=== PATIENT | male | born 1955 | race African-American/Black ===

== ENCOUNTER 2016-09-02 08:16 | Emergency (ER) | payer MEDICARE, MEDICAID ==
[~2016-09-02] VITALS: Ht 167.6 cm; Wt 72.6 kg
[~2016-09-02 08:16] MED LIST: ASPIRIN EC81 MG ORAL; ATORVASTATIN CA10 MG ORAL; BRIMONIDINE TART5 ML BOTH EYES; COSOPT1 DRO2 BOTH EYES; COUMADIN4 MG ORAL; CRESTOR10 M2 ORAL; CRESTOR20 MG ORAL; CRESTOR40 MG ORAL; ELIQUIS; ELIQUIS5 MG PO; FISH OIL CAP1000 MG ORAL; GINSENG100 MG PO; HYDROCODON-ACE1 EA13 ORAL; JANUVIA25 MG ORAL; MACROBID100 MG ORAL; NITROSTAT0.4 M1 SL; TRAVATAN 0.0042.5 ML BOTH EYES; XALATAN2.5 ML BOTH EYES; eloquist PO
--- NOTE | 2016-09-02 08:45 | Emergency Room Report ---
History of Present Illness General Chief Complaint: Chest Pain Source: Patient Present Illness HPI Patient presents with complaints of midsternal chest pain He reports that he was driving a family member when he started feeling the pain Denies any vomiting or diarrhea denies any fevers or chills Denies any shortness of breath patient has complex past medical history including, DVT, previous cardiac surgery And is on elaquis Denies any fall or trauma Pain is 4/10 midsternal sharp Allergies: Coded Allergies: HYDROMORPHONE (Verified Adverse Reaction, Severe, "overwhelms him. can tolerate morphine", 03/01/14) HYDROCODONE (Verified Adverse Reaction, Intermediate, N/V, 10/08/15) Patient History Past Medical History: see triage record Pertinent Family History: none Reviewed Nursing Documentation: PMH: Agreed, PSxH: Agreed Nursing Documentation-PMH Hx Cardiac Problems: No Hx Hypertension: No Hx Pacemaker: No Hx Asthma: No Hx Diabetes: No Hx Cancer: No Hx Gastrointestinal Problems: No Hx Dialysis: No History Of Psychiatric Problem: No Hx Neurological Problems: No Hx Cerebrovascular Accident: No Hx Seizures: No Review of Systems All Other Systems: negative except mentioned in HPI Physical Exam Vital Signs Date Time Temp Pulse Resp B/P Pulse Ox O2 Delivery O2 Flow Rate FiO2 09/02/16 08:28 98.1 78 16 118/70 98 Room Air Sp02 EP Interpretation: reviewed, normal General Appearance: well appearing, no apparent distress Head: normocephalic, atraumatic Eyes: bilateral eye EOMI, bilateral eye PERRL ENT: hearing grossly normal, normal pharynx, TMs + canals normal, uvula midline Neck: full range of motion, supple, no meningismus, no bony tend Respiratory: lungs clear, normal breath sounds, no rhonchi, no respiratory distress, no retraction, no accessory muscle use Cardiovascular #1: normal peripheral pulses, regular rate, rhythm, no edema, no gallop, no JVD, no murmur Gastrointestinal: normal bowel sounds, non tender, soft, no mass, no organomegaly, non-distended, no guarding, no hernia, no pulsatile mass, no rebound Genitourinary: no CVA tenderness Musculoskeletal: normal inspection Neurologic: oriented x3, responsive, computer science professor III-XII nml as tested, motor strength/ tone normal, sensory intact Psychiatric: mood/affect normal Skin: normal color, no rash, warm/dry, palpation normal Lymphatic: normal inspection, no adenopathy Medical Decision Making Diagnostic Impression: Primary Impression: Chest pain ER Course Patient is a fairly complex patient with multiple differential to consideration including but not limited to cardiac cardiopulmonary and vascular emergencies Patient's blood work is at baseline levels Patient continues to rest comfortable he without any acute distress Patient has had multiple imaging and therefore chest x-ray was not obtained today EKG is appropriate and patient stable for close outpatient followup Labs Test 09/02/16 09:00 White Blood Count 5.9 K/UL (4.8-10.8) Red Blood Count 4.53 M/UL (4.70-6.10) Hemoglobin 12.0 G/DL (14.2-18.0) Hematocrit 37.7 % (42.0-52.0) Mean Corpuscular Volume 83 FL (80-99) Mean Corpuscular Hemoglobin 26.4 PG (27.0-31.0) Mean Corpuscular Hemoglobin Concent 31.7 G/DL (32.0-36.0) Red Cell Distribution Width 16.4 % (11.6-14.8) Platelet Count 196 K/UL (150-450) Mean Platelet Volume 9.5 FL (6.5-10.1) Neutrophils (%) (Auto) 63.7 % (45.0-75.0) Lymphocytes (%) (Auto) 21.3 % (20.0-45.0) Monocytes (%) (Auto) 10.1 % (1.0-10.0) Eosinophils (%) (Auto) 3.9 % (0.0-3.0) Basophils (%) (Auto) 1.0 % (0.0-2.0) Sodium Level 136 mEQ/L (135-145) Potassium Level 3.9 mEQ/L (3.4-4.9) Chloride Level 97 mEQ/L (98-107) Carbon Dioxide Level 24 mEQ/L (20-30) Anion Gap 15 (5-15) Blood Urea Nitrogen 17 mg/dL (7-23) Creatinine 1.3 mg/dL (0.7-1.2) Estimat Glomerular Filtration Rate > 60 mL/min (>60) Glucose Level 156 mg/dL (74-106) Calcium Level 9.4 mg/dL (8.6-10.2) Total Bilirubin 0.5 mg/dL (0.0-1.2) Aspartate Amino Transf (AST/SGOT) 14 U/L (5-40) Alanine Aminotransferase (ALT/SGPT) 11 U/L (3-41) Alkaline Phosphatase 54 U/L (40-129) Total Creatine Kinase 78 U/L (38-174) Creatine Kinase MB 1.8 ng/mL (< 6.7) Creatine Kinase MB Relative Index 2.3 Troponin I < 0.30 ng/mL (<=0.30) Total Protein 7.1 g/dL (6.6-8.7) Albumin 4.1 g/dL (3.5-5.2) Globulin 3.0 g/dL Albumin/Globulin Ratio 1.3 (1.0-2.7) EKG Diagnostic Results Rate: normal Rhythm: NSR ST Segments: no acute changes Rhythm Strip Diag. Results EP Interpretation: yes Rate: 88 Rhythm: NSR, no PVC's, no ectopy Chest X-Ray Diagnostic Results EP Interpretation: Yes Last Vital Signs Date Time Temp Pulse Resp B/P Pulse Ox O2 Delivery O2 Flow Rate FiO2 09/02/16 08:28 98.1 78 16 118/70 98 Room Air Status: improved Disposition: HOME, SELF-CARE Condition: Stable Additional Instructions: Patient is provided with the discharge instructions notified to follow up with primary doctor in the next 2-3 days otherwise return to the er with any worsening symptoms. Please note that this report is being documented using DRAGON technology. This can lead to erroneous entry secondary to incorrect interpretation by the dictating instrument. NELSON LOZANO D.O. Sep 02, 2016 08:45
[2016-09-02 09:14] LABS: EOSINOPHILS % (AUTO) 3.9 % (0.0-3.0); LYMPHOCYTES % (AUTO) 21.3 % (20.0-45.0); MEAN CORPUSCULAR HEMOGLOBIN 26.4 PG (27.0-31.0); MEAN CORPUSCULAR HGB CONC 31.7 G/DL (32.0-36.0); MEAN CORPUSCULAR VOLUME 83 FL (80-99); MEAN PLATELET VOLUME 9.5 FL (6.5-10.1); MONOCYTES % (AUTO) 10.1 % (1.0-10.0); NEUTROPHILS % (AUTO) 63.7 % (45.0-75.0); PLATELET COUNT 196 K/UL (150-450); RED BLOOD COUNT 4.53 M/UL (4.70-6.10); RED CELL DISTRIBUTION WIDTH 16.4 % (11.6-14.8); WHITE BLOOD COUNT 5.9 K/UL (4.8-10.8)
[2016-09-02 09:26] LABS: ALANINE AMINOTRANSFERASE 11 U/L (3-41); ALBUMIN/GLOBULIN RATIO 1.3 (1.0-2.7); ANION GAP 15 (5-15); ASPARTATE AMINO TRANSFERASE 14 U/L (5-40); CALCIUM 9.4 mg/dL (8.6-10.2); CARBON DIOXIDE 24 mEQ/L (20-30); CHLORIDE 97 mEQ/L (98-107); CREATININE 1.3 mg/dL (0.7-1.2); GLOMERULAR FILTRATION RATE > 60 mL/min (>60); HEMOLYSIS 2; POTASSIUM 3.9 mEQ/L (3.4-4.9); SODIUM 136 mEQ/L (135-145); TOTAL PROTEIN 7.1 g/dL (6.6-8.7)
[2016-09-02 09:27] LABS: TROPONIN I < 0.30 ng/mL (<=0.30)
[2016-09-02 09:36] LABS: CKMB 1.8 ng/mL (< 6.7)
[2016-09-02 10:03] VITALS: BP 110/63
[2016-09-02 10:48] VITALS: BP 106/74
--- NOTE | 2016-09-05 11:35 | Cardiology Report ---
APPROVED REPORT EKG Measurement Heart [id number] Normal sinus rhythm Possible Left atrial enlargement Borderline ECG
== END 2016-09-02 10:42 | disposition home or self-care (01) ==
LOC: EMR 08:59
DX: R07.9 Chest pain, unspecified (principal); Z86.718 Personal history of other venous thrombosis and embolism; Z88.8 Allergy status to other drugs, medicaments and biological substances; Z79.01 Long term (current) use of anticoagulants
CPT/HCPCS: 36415; 80053; 82550; 82553; 84484; 85025; 93005; 99283

== ENCOUNTER 2017-06-29 17:29 | Emergency (ER) | payer MEDICARE, MEDICAID ==
[~2017-06-29] VITALS: Ht 172.7 cm; Wt 88.5 kg
[2017-06-29 17:48] VITALS: BP 132/91
[2017-06-29 18:50] VITALS: BP 132/91
--- NOTE | 2017-06-29 21:15 | Emergency Room Report ---
History of Present Illness General Chief Complaint: Multiple Trauma/Fall Source: Patient Present Illness [facility] The patient is a 62-year-old male presenting for pain after falling today. He states that he tripped and struck his right shoulder and chest against the floor. He denies hitting his head or loss of consciousness. He has history of pectus excavatum. He also has a history of cardiac dysrhythmia but is unsure of the name of the diagnosis. He states that he is on eliquis. Pain is an 8/ 10 dull ache primarily to the chest and radiates to the right shoulder. Worse with touch. He denies other symptoms including shortness of breath, cough, dizziness, headache, blurred vision Allergies: Coded Allergies: HYDROMORPHONE (Verified Adverse Reaction, Severe, "overwhelms him. can tolerate morphine", 03/01/14) HYDROCODONE (Verified Adverse Reaction, Intermediate, N/V, 10/08/15) Patient History Past Medical History: see triage record Pertinent Family History: none Reviewed Nursing Documentation: PMH: Agreed, PSxH: Agreed Nursing Documentation-PMH Hx Cardiac Problems: No Hx Hypertension: No Hx Pacemaker: No Hx Asthma: No Hx Diabetes: No Hx Cancer: No Hx Gastrointestinal Problems: No Hx Dialysis: No Hx Neurological Problems: No Hx Cerebrovascular Accident: No Hx Seizures: No Review of Systems All Other Systems: negative except mentioned in HPI Physical Exam Vital Signs Date Time Temp Pulse Resp B/P (MAP) Pulse Ox O2 Delivery O2 Flow Rate FiO2 06/29/17 17:38 98.4 85 20 132/91 98 Room Air Sp02 EP Interpretation: reviewed, normal General Appearance: no apparent distress, alert, GCS 15, non-toxic Head: normocephalic, atraumatic Eyes: bilateral eye normal inspection, bilateral eye PERRL ENT: hearing grossly normal, normal pharynx, no angioedema, normal voice Respiratory: lungs clear, normal breath sounds, speaking full sentences Cardiovascular #1: regular rate, rhythm, no edema Musculoskeletal: normal range of motion - R shoulder, other - pectus excavatum , tender - Mid chest over sternum Neurologic: alert, oriented x3, responsive, motor strength/tone normal, sensory intact, speech normal Psychiatric: judgement/insight normal, memory normal, mood/affect normal, no suicidal/homicidal ideation Skin: normal color, no rash, warm/dry, well hydrated Medical Decision Making PA Attestation Dr. Su is my supervising physician. Patient management was discussed with my supervising physician Diagnostic Impression: Primary Impression: AMA ER Course The patient is a 62-year-old male presenting for pain after falling today. Ddx considered include but not limited to hemothorax, ACS, tamponade, sprain/ strain, fracture, contusion, among others PE: Vitals WNL. NAD Chest: pectus excavatum with surgical scar. TTP over sternum RRR Lungs CTA bilat EKG unremarkable. No arrhythmia. No ST changes. CT chest ordered but patient refused. He states that he has had bad experiences with IV contrast. I informed him this was ordered without contrast. He has become irritated and refuses the CT. He states that he will wait for a family member to call him. Upon reevaluation, I told the patient we need imaging in order to further evaluate him. He again became upset and states that he will leave. The patient will have to leave AMA. EKG Diagnostic Results EP Interpretation: NSR. No acute findings Rate: normal - 78 Rhythm: NSR ST Segments: no acute changes ASA given to the pt in ED: No PA Scribe Text EKG was reviewed and read with my supervising physician. No acute ST segment changes are seen. Normal rate and rhythm. No acute changes. Last Vital Signs Date Time Temp Pulse Resp B/P (MAP) Pulse Ox O2 Delivery O2 Flow Rate FiO2 06/29/17 18:50 98.4 20 132/91 98 Room Air 06/29/17 17:38 85 Status: improved Disposition: AGAINST MEDICAL ADVICE Condition: Stable Referrals: NOT CHOSEN IPA/,REFERRING (PCP) SHEEBA AMBROSE Jun 29, 2017 21:15
--- NOTE | 2017-07-05 15:10 | Cardiology Report ---
APPROVED REPORT EKG Measurement Heart [id number] Normal sinus rhythm Normal ECG
== END 2017-06-29 18:50 | disposition left against medical advice (07) ==
LOC: EMR 18:18
DX: M25.511 Pain in right shoulder (principal); W01.0XXA Fall on same level from slipping, tripping and stumbling without subsequent striking against object, initial encounter; Y92.9 Unspecified place or not applicable
CPT/HCPCS: 93005; 99283

== ENCOUNTER 2018-05-01 21:31 | Inpatient (IN) | payer MEDICARE, MEDICAID ==
[~2018-05-01] VITALS: Ht 172.7 cm; Wt 89.8 kg
[2018-05-02] VITALS: BP 130/77
[2018-05-02] MEDS ORDERED: PROSCAR5 MG ORAL (00:46)
[2018-05-02] MEDS ORDERED: BRIMONIDINE TART5 ML BOTH EYES (00:46)
[2018-05-02] MEDS ORDERED: LIPITOR80 MG ORAL (00:46)
[2018-05-02] MEDS ORDERED: TAMSULOSIN HCL0.4 MG ORAL (00:46)
[2018-05-02] MEDS ORDERED: TRAVATAN Z5 ML OP (00:46)
[2018-05-02] MEDS ORDERED: COSOPT PF EYE1 EAC1 OP (00:46)
[2018-05-02] MEDS ORDERED: METFORMIN HCL500 M1 ORAL (00:46)
[2018-05-02] MEDS ORDERED: ELIQUIS5 MG PO (00:46)
[2018-05-02] MEDS ORDERED: Nitroglycerin Subl 0.4mg tab SL PRN (01:00)
[2018-05-02] MEDS: NovoLOG Insulin Flexpen SUBQ SCH ×4 (06:09→21:00)
[2018-05-02 08:00] VITALS: BP 122/70
[2018-05-02 08:44] LABS: BASOPHILS % (AUTO) 1.1 % (0.0-2.0); EOSINOPHILS % (AUTO) 3.3 % (0.0-3.0); HEMATOCRIT 41.6 % (42.0-52.0); HEMOGLOBIN 13.5 G/DL (14.2-18.0); LYMPHOCYTES % (AUTO) 22.9 % (20.0-45.0); MEAN CORPUSCULAR VOLUME 84 FL (80-99); MONOCYTES % (AUTO) 11.3 % (1.0-10.0); NEUTROPHILS % (AUTO) 61.4 % (45.0-75.0); PLATELET COUNT 151 K/UL (150-450); RED BLOOD COUNT 4.96 M/UL (4.70-6.10); RED CELL DISTRIBUTION WIDTH 16.1 % (11.6-14.8); WHITE BLOOD COUNT 6.6 K/UL (4.8-10.8)
[2018-05-02] MEDS: Aspirin Baby 81mg ORAL SCH (08:49)
[2018-05-02] MEDS: Cosopt Opth Soln 10 mL Btl BOTH EYES SCH ×2 (08:49→17:40)
[2018-05-02] MEDS: Brimonidine 0.2% Opth Sol BOTH EYES SCH ×2 (08:50→17:40)
[2018-05-02 09:07] LABS: ALANINE AMINOTRANSFERASE 15 U/L (12-78); ALBUMIN 3.3 G/DL (3.4-5.0); ALBUMIN/GLOBULIN RATIO 0.8 (1.0-2.7); ALKALINE PHOSPHATASE 59 U/L (46-116); ANION GAP 7 mmol/L (5-15); ASPARTATE AMINO TRANSFERASE 13 U/L (15-37); BILIRUBIN,TOTAL 0.4 MG/DL (0.2-1.0); BLOOD UREA NITROGEN 15 mg/dL (7-18); CARBON DIOXIDE 26 MMOL/L (21-32); CHLORIDE 105 MMOL/L (98-107); CHOLESTEROL 147 MG/DL (< 200); CREATININE 1.1 MG/DL (0.55-1.30); HDL CHOLESTEROL 31 MG/DL (40-60); PHOSPHORUS 3.4 MG/DL (2.5-4.9); POTASSIUM 3.7 MMOL/L (3.5-5.1); SODIUM 138 MMOL/L (136-145); TRIGLYCERIDES 165 MG/DL (30-150)
[2018-05-02] MEDS ORDERED: Eliquis 2.5mg tablet ORAL SCH (10:00)
[2018-05-02] MEDS ORDERED: metFORMIN 500mg tab ORAL SCH (10:00)
[2018-05-02] MEDS: Morphine Sulfate 2mg/ml Inj IVP PRN ×3 (11:22→23:58)
--- NOTE | 2018-05-02 11:37 | Consultation ---
History of Present Illness General Date patient seen: May 02, 2018 Present Illness HPI 63 year old male with hx of CAD, ventricular mural thrombosis, with ICD, was taken to [facility] with cc of chest pain. An acute MN was ruled out and pt was transferred to [facility] last night. Pt used to come to [facility] more frequently in the past. He has not been admitted for the last two years here. He got an ICD at [facility]. He is c/o chest pain and firing from the pace maker. Allergies: Coded Allergies: HYDROMORPHONE (Verified Adverse Reaction, Severe, "overwhelms him. can tolerate morphine", 03/01/14) HYDROCODONE (Verified Adverse Reaction, Intermediate, N/V, 10/08/15) Medication History Scheduled Apixaban (Eliquis), 5 MG PO BID, (Reported) Apixaban (Eliquis), 5 MG PO BID, (Reported) Atorvastatin (Lipitor), 10 MG ORAL DAILY, (Reported) Atorvastatin Calcium* (Lipitor*), 10 MG ORAL BEDTIME, (Reported) Brimonidine Tartrate* (Alphagan*), 1 DROP BOTH EYES TID, (Reported) Brimonidine Tartrate* (Alphagan*), 1 DROP BOTH EYES BID, (Reported) Dorzolamide HCl/Timolol Maleat (Dorzolamide-Timolol Eye Drops), 1 DROP BOTH EYES TWICE A DAY, (Reported) Dorzolamide/Timolol/Pf (Cosopt Pf Eye Drops), 1 EACH OP BID, (Reported) Finasteride* (Proscar*), 5 MG ORAL DAILY, (Reported) Hydrocodone Bit/Acetaminophen 10-325* (Hydrocodon-Acetaminophn 10-325*), 1 TAB ORAL Q6H, (Reported) Metformin Hcl* (Metformin Hcl*), 500 MG ORAL TWICE A DAY, (Reported) Tamsulosin Hcl (Tamsulosin Hcl*), 0.4 MG ORAL BEDTIME, (Reported) Travoprost (Travatan Z), 1 DROP OP BEDTIME, (Reported) Travoprost (Benzalkonium) (Travatan 0.004% Eye Drop), 1 DROP BOTH EYES BEDTIME, (Reported) Patient History Healthcare decision maker Resuscitation status Full Code Advanced Directive on File Past Medical/Surgical History Past Medical/Surgical History: (1) DVT (deep venous thrombosis) (2) Chest wall pain (3) Lumbar spondylosis (4) HTN (hypertension) (5) Hx pulmonary embolism (6) Diabetes mellitus (7) Asthma Review of Systems All Other Systems: negative except mentioned in HPI Physical Exam General Appearance: WD/WN, no apparent distress Lines, tubes and drains: peripheral HEENT: normocephalic, atraumatic Neck: non-tender, normal alignment Respiratory/Chest: chest wall non-tender Breasts: no masses Cardiovascular/Chest: normal peripheral pulses Abdomen: normal bowel sounds, non tender Genitourinary/Rectal: normal genital exam Extremities: normal range of motion Neurologic: recorder helper seismograph II-XII grossly normal Last 24 Hour Vital Signs Date Time Temp Pulse Resp B/P (MAP) Pulse Ox O2 Delivery O2 Flow Rate FiO2 05/02/18 08:00 97.7 66 16 122/70 (87) 95 05/02/18 04:00 60 05/02/18 02:18 Room Air 05/02/18 00:00 97.9 63 20 130/77 (94) 97 05/02/18 00:00 66 Intake and Output 05/01/18 05/02/18 19:00 07:00 # Voids 3 # Bowel Movements 1 Laboratory Tests Test 05/02/18 07:25 White Blood Count 6.6 K/UL (4.8-10.8) Red Blood Count 4.96 M/UL (4.70-6.10) Hemoglobin 13.5 G/DL (14.2-18.0) L Hematocrit 41.6 % (42.0-52.0) L Mean Corpuscular Volume 84 FL (80-99) Mean Corpuscular Hemoglobin 27.2 PG (27.0-31.0) Mean Corpuscular Hemoglobin Concent 32.4 G/DL (32.0-36.0) Red Cell Distribution Width 16.1 % (11.6-14.8) H Platelet Count 151 K/UL (150-450) Mean Platelet Volume 11.1 FL (6.5-10.1) H Neutrophils (%) (Auto) 61.4 % (45.0-75.0) Lymphocytes (%) (Auto) 22.9 % (20.0-45.0) Monocytes (%) (Auto) 11.3 % (1.0-10.0) H Eosinophils (%) (Auto) 3.3 % (0.0-3.0) H Basophils (%) (Auto) 1.1 % (0.0-2.0) Sodium Level 138 MMOL/L (136-145) Potassium Level 3.7 MMOL/L (3.5-5.1) Chloride Level 105 MMOL/L (98-107) Carbon Dioxide Level 26 MMOL/L (21-32) Anion Gap 7 mmol/L (5-15) Blood Urea Nitrogen 15 mg/dL (7-18) Creatinine 1.1 MG/DL (0.55-1.30) Estimat Glomerular Filtration Rate > 60 mL/min (>60) Glucose Level 146 MG/DL (74-106) H Calcium Level 9.0 MG/DL (8.5-10.1) Phosphorus Level 3.4 MG/DL (2.5-4.9) Magnesium Level 1.9 MG/DL (1.8-2.4) Total Bilirubin 0.4 MG/DL (0.2-1.0) Aspartate Amino Transf (AST/SGOT) 13 U/L (15-37) L Alanine Aminotransferase (ALT/SGPT) 15 U/L (12-78) Alkaline Phosphatase 59 U/L (46-116) Troponin I 0.000 ng/mL (0.000-0.056) Total Protein 7.3 G/DL (6.4-8.2) Albumin 3.3 G/DL (3.4-5.0) L Globulin 4.0 g/dL Albumin/Globulin Ratio 0.8 (1.0-2.7) L Triglycerides Level 165 MG/DL (30-150) H Cholesterol Level 147 MG/DL (< 200) LDL Cholesterol 87 mg/dL (<100) HDL Cholesterol 31 MG/DL (40-60) L Cholesterol/HDL Ratio 4.7 (3.3-4.4) H Height (Feet): 5 Height (Inches): 8.00 Weight (Pounds): 198 Medications Current Medications Medications (Trade) Dose Ordered Sig/Kristan Route PRN Reason Start Time Stop Time Status Last Admin Dose Admin Acetaminophen (Tylenol) 650 mg Q4H PRN ORAL Mild Pain/Temp > 100.5 05/02/18 01:00 06/01/18 00:59 Apixaban (Eliquis) 5 mg BID ORAL 05/02/18 18:00 06/01/18 17:59 Aspirin (ASA) 81 mg DAILY ORAL 05/02/18 09:00 06/01/18 08:59 05/02/18 08:49 Atorvastatin Calcium (Lipitor) 10 mg BEDTIME ORAL 05/02/18 21:00 06/01/18 20:59 Brimonidine Tartrate (Alphagan) 1 drop BID BOTH EYES 05/02/18 09:00 06/01/18 08:59 05/02/18 08:50 Dextrose (Dextrose 50%) 25 ml Q30M PRN IV Hypoglycemia 05/02/18 01:00 06/01/18 00:59 Dextrose (Dextrose 50%) 50 ml Q30M PRN IV Hypoglycemia 05/02/18 01:00 06/01/18 00:59 Dorzolamide/ Timolol (Cosopt) 1 drop TWICE A DAY BOTH EYES 05/02/18 09:00 06/01/18 08:59 05/02/18 08:49 Finasteride (Proscar) 5 mg DAILY ORAL 05/02/18 09:00 06/01/18 08:59 05/02/18 08:49 Insulin Aspart (NovoLOG) BEFORE MEALS AND HS SUBQ 05/02/18 06:30 06/01/18 06:29 Latanoprost (Xalatan) 1 drop QHS BOTH EYES 05/02/18 21:00 06/01/18 20:59 Metformin HCl (Glucophage) 500 mg TWICE A DAY ORAL 05/02/18 18:00 06/01/18 17:59 Morphine Sulfate (Morphine Sulfate) 2 mg Q6H PRN IVP Severe Breakthru Pain (>7) 05/02/18 01:00 05/09/18 00:59 05/02/18 11:22 Nitroglycerin (Ntg) 0.4 mg Q5M PRN SL Prn Chest Pain 05/02/18 01:00 06/01/18 00:59 Ondansetron HCl (Zofran) 4 mg Q6H PRN IVP Nausea & Vomiting 05/02/18 01:00 06/01/18 00:59 Tamsulosin HCl (Flomax) 0.4 mg BEDTIME ORAL 05/02/18 21:00 06/01/18 20:59 Assessment/Plan Problem List: (1) Acute coronary syndrome ICD Codes: I20.0 - Acute coronary syndrome SNOMED: 405148988 (2) Abnormal ICD sensing ICD Codes: T82.190A - Other mechanical complication of cardiac electrode, initial encounter SNOMED: 631345593 (3) Costochondritis ICD Codes: M94.0 - Chondrocostal junction syndrome [Tietze] SNOMED: 46214366 (4) COPD (chronic obstructive pulmonary disease) ICD Codes: J44.9 - COPD (chronic obstructive pulmonary disease) SNOMED: 52905379 (5) Hx pulmonary embolism ICD Codes: Z86.711 - Hx pulmonary embolism SNOMED: 699349489 (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
[2018-05-02 12:00] VITALS: BP 100/62
--- NOTE | 2018-05-02 16:51 | Cardiac Electrophysiology PN ---
Subjective Subjective [id number] Objective Last 24 Hour Vital Signs Date Time Temp Pulse Resp B/P (MAP) Pulse Ox O2 Delivery O2 Flow Rate FiO2 05/02/18 12:00 63 05/02/18 12:00 97.2 66 16 100/62 (75) 98 05/02/18 09:00 Room Air 05/02/18 08:00 97.7 66 16 122/70 (87) 95 05/02/18 08:00 87 05/02/18 04:00 60 05/02/18 02:18 Room Air 05/02/18 00:00 97.9 63 20 130/77 (94) 97 05/02/18 00:00 66 Intake and Output 05/01/18 05/02/18 18:59 06:59 # Voids 3 # Bowel Movements 1 Laboratory Tests Test 05/02/18 07:25 White Blood Count 6.6 K/UL (4.8-10.8) Red Blood Count 4.96 M/UL (4.70-6.10) Hemoglobin 13.5 G/DL (14.2-18.0) L Hematocrit 41.6 % (42.0-52.0) L Mean Corpuscular Volume 84 FL (80-99) Mean Corpuscular Hemoglobin 27.2 PG (27.0-31.0) Mean Corpuscular Hemoglobin Concent 32.4 G/DL (32.0-36.0) Red Cell Distribution Width 16.1 % (11.6-14.8) H Platelet Count 151 K/UL (150-450) Mean Platelet Volume 11.1 FL (6.5-10.1) H Neutrophils (%) (Auto) 61.4 % (45.0-75.0) Lymphocytes (%) (Auto) 22.9 % (20.0-45.0) Monocytes (%) (Auto) 11.3 % (1.0-10.0) H Eosinophils (%) (Auto) 3.3 % (0.0-3.0) H Basophils (%) (Auto) 1.1 % (0.0-2.0) Sodium Level 138 MMOL/L (136-145) Potassium Level 3.7 MMOL/L (3.5-5.1) Chloride Level 105 MMOL/L (98-107) Carbon Dioxide Level 26 MMOL/L (21-32) Anion Gap 7 mmol/L (5-15) Blood Urea Nitrogen 15 mg/dL (7-18) Creatinine 1.1 MG/DL (0.55-1.30) Estimat Glomerular Filtration Rate > 60 mL/min (>60) Glucose Level 146 MG/DL (74-106) H Calcium Level 9.0 MG/DL (8.5-10.1) Phosphorus Level 3.4 MG/DL (2.5-4.9) Magnesium Level 1.9 MG/DL (1.8-2.4) Total Bilirubin 0.4 MG/DL (0.2-1.0) Aspartate Amino Transf (AST/SGOT) 13 U/L (15-37) L Alanine Aminotransferase (ALT/SGPT) 15 U/L (12-78) Alkaline Phosphatase 59 U/L (46-116) Troponin I 0.000 ng/mL (0.000-0.056) Total Protein 7.3 G/DL (6.4-8.2) Albumin 3.3 G/DL (3.4-5.0) L Globulin 4.0 g/dL Albumin/Globulin Ratio 0.8 (1.0-2.7) L Triglycerides Level 165 MG/DL (30-150) H Cholesterol Level 147 MG/DL (< 200) LDL Cholesterol 87 mg/dL (<100) HDL Cholesterol 31 MG/DL (40-60) L Cholesterol/HDL Ratio 4.7 (3.3-4.4) H Gato Zayas MD May 02, 2018 16:51
[2018-05-02] MEDS: Eliquis 2.5mg tablet ORAL SCH (17:40)
[2018-05-02] MEDS: metFORMIN 500mg tab ORAL SCH (17:40)
--- NOTE | 2018-05-02 17:41 | History & Physical ---
History and Physical History & Physicial Dictated for Int Med-Dr Montes no. [id number]. Charbel Serrato MD May 02, 2018 17:41
[2018-05-02 20:00] VITALS: BP 101/63
--- NOTE | 2018-05-02 20:30 | History and Physical Report ---
DATE OF ADMISSION: 05/02/2018 CHIEF COMPLAINT: The patient is a 63-year-old male, who presents with chief complaint of chest pain. HISTORY OF PRESENT ILLNESS: The patient is status post pacemaker implantation in January 2018. The patient states he was at home last evening when he felt chest pain. The patient states it felt like electricity. The patient thinks that his pacemaker fired. The patient states the chest pain was on and off for about 8 hours. The patient presented initially to [facility] emergency room. The patient was transferred to [facility] for insurance purposes. The patient is admitted with chest pain to rule out acute coronary syndrome versus malfunction of pacemaker. REVIEW OF SYSTEMS: CONSTITUTIONAL: The patient denies weight loss or weight gain. The patient denies fevers or chills. HEENT: The patient denies ear or throat pain. The patient denies headache. CARDIOVASCULAR: The patient complains of chest pain as above. The patient denies palpitations. CHEST: The patient denies wheeze or shortness of breath. ABDOMEN: The patient denies nausea, vomiting, diarrhea, or constipation. NEUROMUSCULAR: The patient denies seizures or generalized weakness. PAST MEDICAL HISTORY: Significant for: 1. Pulmonary embolism in 2012, currently on Eliquis therapy. 2. Glaucoma. 3. Diabetes type 2. 4. Hypercholesterolemia. 5. Bradycardia. PAST SURGICAL HISTORY: Significant for: 1. Pacemaker implantation in January 2018. 2. IVC filter placement. 3. Pulmonary embolectomy secondary to pulmonary embolism, as above. 4. Multiple eye surgeries. CURRENT MEDICATIONS: 1. Eliquis 5 mg p.o. twice daily. 2. Atorvastatin 80 mg p.o. daily. 3. Alphagan one drop to both eyes three times daily. 4. Timolol one drop to both eyes twice daily. 5. Cosopt one drop to both eyes twice daily. 6. Proscar 5 mg p.o. daily. 7. [place] 10/325 mg one tablet p.o. q.6 h. p.r.n. 8. Metformin 500 mg p.o. twice daily. 9. Tamsulosin 0.4 mg p.o. nightly. 10. Travatan one drop to both eyes nightly. ALLERGIES: Dilaudid, which causes itching. SOCIAL HISTORY: The patient is single and is disabled. The patient denies tobacco or alcohol use. PHYSICAL EXAMINATION: VITAL SIGNS: Temperature 97.7, respirations 16, pulse 66, and blood pressure 120/70. GENERAL: The patient is a well-developed and well-nourished male, in no apparent distress. HEENT: Eyes, pupils are equal and responsive to light and accommodation. Extraocular movements are intact. NECK: Supple. No lymphadenopathy. CHEST: Lungs are clear to auscultation bilaterally without wheezes or rales. CARDIOVASCULAR: Regular rate, S1, S2 normal without murmurs, rubs, or gallops. ABDOMEN: Soft, nontender, and nondistended. Positive bowel sounds. No evidence of hepatosplenomegaly. Currently, no rebound or guarding noted. EXTREMITIES: Negative for clubbing, cyanosis, or edema. RECTAL/GENITAL: Refused. NEUROLOGIC: Cranial nerves II through XII are grossly intact without focal deficits. Motor strength is 5/5 bilaterally. Deep tendon reflexes are 2+ plantar. LABORATORY STUDIES: WBC 9.4, hemoglobin 14.8, hematocrit 44.0, and platelets 204,000. Sodium 133, potassium 5.2, chloride 101, CO2 24, BUN 14, and creatinine 1.05. Glucose 98. Troponin less than 0.02. Chest x-ray was reported as no acute disease. EKG demonstrated normal sinus rhythm at approximately 65 beats per minute. There were no acute ST changes or Q-waves noted. ASSESSMENT: This is a 63-year-old male with: 1. Chest pain. 2. Possible malfunction of pacemaker. 3. History of pulmonary embolism. 4. Glaucoma. 5. Diabetes type 2. 6. Hypercholesteremia. 7. Bradycardia. TREATMENT: 1. Chest pain/malfunction of pacemaker. A Cardiology consultation has been obtained with Dr. Gato Zayas. We will follow recommendations of Cardiology. Pacemaker interrogation will be performed. 2. Pulmonary embolism. The patient is status post pulmonary embolism in 2012. Continue Eliquis as above. 3. Glaucoma. Continue multiple eyedrops as above. 4. Diabetes type 2. The patient has been started on a NovoLog sliding scale. Continue metformin as above. 5. Hypercholesterolemia. Continue Lipitor as above. 6. Bradycardia. As above, the patient has a pacemaker in place. Charbel Serrato M.D. DR: AMADOR JOB#: [id number] CC:
--- NOTE | 2018-05-02 21:30 | Consultation ---
DATE OF CONSULTATION: 05/02/2018 CARDIOLOGY CONSULTATION CONSULTING PHYSICIAN: Gato Zayas M.D. REFERRING PHYSICIAN: Rik Montes M.D. REASON FOR CONSULTATION: Evaluation of pacemaker and anticoagulation in a patient with history of pulmonary embolism. HISTORY OF PRESENT ILLNESS: The patient is a 63-year-old gentleman with history of pulmonary embolism, status post open pulmonary embolectomy as well as history of intermittent complete heart block, status post pacemaker implantation at an outside institution at [facility] presented to the emergency room complaining of chest pain from the pacemaker site as well as firing from pacemaker. The patient was admitted and a Cardiology consultation was obtained for further evaluation. At the time of my evaluation, the patient denies any chest pain or shortness of breath, but however states that the pacemaker site is uncomfortable. REVIEW OF SYSTEMS: Negative other than what was mentioned in the history of present illness. PAST MEDICAL HISTORY: 1. History of pulmonary embolectomy. 2. Status post pacemaker. 3. Hyperlipidemia. 4. Glaucoma. 5. Noncompliance with numerous hospital admissions and discharges. FAMILY HISTORY: Noncontributory. MEDICATIONS: Include apixaban, Lipitor, Alphagan, metformin, and Travatan. PHYSICAL EXAMINATION: VITAL SIGNS: Blood pressure 100/62, pulse 66, respirations 18, and temperature 97.2 degrees. HEAD AND NECK: Showed no JVD. LUNGS: Clear. CARDIOVASCULAR: Regular, S1 and S2 with no gallop. Pacemaker in left subclavian. No hematoma. ABDOMEN: Soft. EXTREMITIES: No pitting edema. LABORATORY AND DIAGNOSTIC STUDIES: White count 6.7, hemoglobin 13.4, hematocrit 41.6, and platelet count 151,000. Sodium is 130, potassium 3.7, BUN 15, and creatinine 1.1. Glucose 146. Troponin negative x3. ASSESSMENT AND PLAN: 1. Atypical chest pain. The patient's troponin is negative. The patient had numerous admissions for chest pain already ruled out myocardial infarction repeatedly. The patient also underwent a stress test at [facility] that was negative. Echocardiogram showed EF of 55%. No evidence of pericardial effusion. 2. Bradycardia, status post permanent pacemaker implantation. The pacemaker was interrogated at recent admission at [facility] with normal function. 3. Hyperlipidemia. 4. Glaucoma. 5. Noncompliance. Thank you very much, Dr. Montes, for allowing me to participate in the care of this patient. Please do not hesitate to contact me for any questions regarding my evaluation. Gato Zayas M.D. DR: ANNIE JOB#: [id number] CC:
[2018-05-02] MEDS: Tamsulosin 0.4mg cap ORAL SCH (21:53)
[2018-05-02] MEDS: Latanoprost 0.005% Opth 2.5ml Soln BOTH EYES SCH (21:53)
[2018-05-03] MEDS: NovoLOG Insulin Flexpen SUBQ SCH ×4 (06:34→21:00)
[2018-05-03 06:38] LABS: EOSINOPHILS % (AUTO) 3.4 % (0.0-3.0); HEMATOCRIT 40.8 % (42.0-52.0); HEMOGLOBIN 13.7 G/DL (14.2-18.0); MEAN CORPUSCULAR VOLUME 83 FL (80-99); MONOCYTES % (AUTO) 9.1 % (1.0-10.0); NEUTROPHILS % (AUTO) 62.6 % (45.0-75.0); PLATELET COUNT 152 K/UL (150-450); RED BLOOD COUNT 4.89 M/UL (4.70-6.10); WHITE BLOOD COUNT 6.4 K/UL (4.8-10.8)
[2018-05-03 07:16] LABS: ALANINE AMINOTRANSFERASE 14 U/L (12-78); ALBUMIN 3.2 G/DL (3.4-5.0); ALBUMIN/GLOBULIN RATIO 0.8 (1.0-2.7); ALKALINE PHOSPHATASE 64 U/L (46-116); ANION GAP 6 mmol/L (5-15); ASPARTATE AMINO TRANSFERASE 12 U/L (15-37); BILIRUBIN,TOTAL 0.3 MG/DL (0.2-1.0); BLOOD UREA NITROGEN 18 mg/dL (7-18); CALCIUM 8.8 MG/DL (8.5-10.1); CARBON DIOXIDE 26 MMOL/L (21-32); CHLORIDE 106 MMOL/L (98-107); CREATININE 1.2 MG/DL (0.55-1.30); POTASSIUM 3.9 MMOL/L (3.5-5.1); SODIUM 138 MMOL/L (136-145)
[2018-05-03 08:00] VITALS: BP 100/63
[2018-05-03] MEDS: Eliquis 2.5mg tablet ORAL SCH ×2 (08:22→16:54)
[2018-05-03] MEDS: metFORMIN 500mg tab ORAL SCH ×2 (08:22→16:53)
[2018-05-03] MEDS: Aspirin Baby 81mg ORAL SCH (08:22)
[2018-05-03] MEDS: Brimonidine 0.2% Opth Sol BOTH EYES SCH ×2 (08:23→16:55)
[2018-05-03] MEDS: Morphine Sulfate 2mg/ml Inj IVP PRN ×3 (08:24→23:30)
[2018-05-03] MEDS: Cosopt Opth Soln 10 mL Btl BOTH EYES SCH ×2 (08:24→16:56)
--- NOTE | 2018-05-03 10:50 | Pulmonology Progress Note ---
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 can tolerate morphine", 03/01/14) HYDROCODONE (Verified Adverse Reaction, Intermediate, N/V, 10/08/15) Objective Last 24 Hour Vital Signs Date Time Temp Pulse Resp B/P (MAP) Pulse Ox O2 Delivery O2 Flow Rate FiO2 05/03/18 09:18 Room Air 05/03/18 08:54 97.6 05/03/18 08:00 65 05/03/18 08:00 97.6 68 16 100/63 (75) 98 05/03/18 04:00 70 05/03/18 00:00 66 05/02/18 21:00 Room Air 05/02/18 20:00 97.9 65 20 101/63 (76) 93 05/02/18 20:00 68 05/02/18 16:00 65 05/02/18 12:00 63 05/02/18 12:00 97.2 66 16 100/62 (75) 98 Intake and Output 05/02/18 05/03/18 19:00 07:00 Intake Total 240 ml Balance 240 ml Intake Oral 240 ml # Voids 1 # Bowel Movements 1 General Appearance: WD/WN HEENT: normocephalic, atraumatic Respiratory/Chest: chest wall non-tender, lungs clear Cardiovascular: normal peripheral pulses, regular rhythm Abdomen: normal bowel sounds, soft, non tender, no scars Extremities: no cyanosis Skin: no lesions Microbiology Date/Time Source Procedure Growth Status 05/02/18 01:00 Rectum - Preliminary Resulted Laboratory Tests 05/03/18 06:15: White Blood Count 6.4, Red Blood Count 4.89, Hemoglobin 13.7L, Hematocrit 40.8L , Mean Corpuscular Volume 83, Mean Corpuscular Hemoglobin 27.9, Mean Corpuscular Hemoglobin Concent 33.5, Red Cell Distribution Width 16.0H, Platelet Count 152, Mean Platelet Volume 10.2H, Neutrophils (%) (Auto) 62.6, Lymphocytes (%) (Auto) 24.0, Monocytes (%) (Auto) 9.1, Eosinophils (%) (Auto) 3.4H, Basophils (%) (Auto) 1.0, Erythrocyte Sedimentation Rate 6, Sodium Level 138, Potassium Level 3.9, Chloride Level 106, Carbon Dioxide Level 26, Anion Gap 6, Blood Urea Nitrogen 18, Creatinine 1.2, Estimat Glomerular Filtration Rate > 60, Glucose Level 137H, Hemoglobin A1c 6.4H, Calcium Level 8.8, Phosphorus Level 3.0, Magnesium Level 2.0, Total Bilirubin 0.3, Aspartate Amino Transf (AST/SGOT) 12L, Alanine Aminotransferase (ALT/SGPT) 14, Alkaline Phosphatase 64, Troponin I 0.000, Total Protein 7.2, Albumin 3.2L, Globulin 4.0 , Albumin/Globulin Ratio 0.8L Current Medications Medications (Trade) Dose Ordered Sig/Kristan Route PRN Reason Start Time Stop Time Status Last Admin Dose Admin Acetaminophen (Tylenol) 650 mg Q4H PRN ORAL Mild Pain/Temp > 100.5 05/02/18 01:00 06/01/18 00:59 Apixaban (Eliquis) 5 mg BID ORAL 05/02/18 18:00 06/01/18 17:59 05/03/18 08:22 Aspirin (ASA) 81 mg DAILY ORAL 05/02/18 09:00 06/01/18 08:59 05/03/18 08:22 Atorvastatin Calcium (Lipitor) 10 mg BEDTIME ORAL 05/02/18 21:00 06/01/18 20:59 05/02/18 21:54 Brimonidine Tartrate (Alphagan) 1 drop BID BOTH EYES 05/02/18 09:00 06/01/18 08:59 05/03/18 08:23 Dextrose (Dextrose 50%) 25 ml Q30M PRN IV Hypoglycemia 05/02/18 01:00 06/01/18 00:59 Dextrose (Dextrose 50%) 50 ml Q30M PRN IV Hypoglycemia 05/02/18 01:00 06/01/18 00:59 Dorzolamide/ Timolol (Cosopt) 1 drop TWICE A DAY BOTH EYES 05/02/18 09:00 06/01/18 08:59 05/03/18 08:24 Finasteride (Proscar) 5 mg DAILY ORAL 05/02/18 09:00 06/01/18 08:59 05/03/18 08:23 Insulin Aspart (NovoLOG) BEFORE MEALS AND HS SUBQ 05/02/18 06:30 06/01/18 06:29 05/03/18 06:34 Latanoprost (Xalatan) 1 drop QHS BOTH EYES 05/02/18 21:00 06/01/18 20:59 05/02/18 21:53 Metformin HCl (Glucophage) 500 mg TWICE A DAY ORAL 05/02/18 18:00 06/01/18 17:59 05/03/18 08:22 Morphine Sulfate (Morphine Sulfate) 2 mg Q6H PRN IVP Severe Breakthru Pain (>7) 05/02/18 01:00 05/09/18 00:59 05/03/18 08:24 Nitroglycerin (Ntg) 0.4 mg Q5M PRN SL Prn Chest Pain 05/02/18 01:00 06/01/18 00:59 Ondansetron HCl (Zofran) 4 mg Q6H PRN IVP Nausea & Vomiting 05/02/18 01:00 06/01/18 00:59 Tamsulosin HCl (Flomax) 0.4 mg BEDTIME ORAL 05/02/18 21:00 06/01/18 20:59 05/02/18 21:53 Violet Schmid MD May 03, 2018 10:50
[2018-05-03 12:00] VITALS: BP 107/66
--- NOTE | 2018-05-03 14:19 | Cardiac Electrophysiology PN ---
Assessment/Plan Assessment/Plan 1. Atypical chest pain. Ruled out for [place]. The patient had numerous admissions for chest pain. The patient also underwent a stress test at [facility] that was negative. Echocardiogram showed EF of 55%. No evidence of pericardial effusion. 2. Bradycardia, status post permanent pacemaker implantation. The pacemaker was interrogated at recent admission at [facility] with normal function. 3. S/P Thoracotomy for PE in past. On Eliquis 5 bid 4. Glaucoma. 5. Noncompliance. OK to DC from cardiac stand point GLADYS RN Subjective Subjective Noncompliant. Doesn't want to be examined. RN at bedside Objective Last 24 Hour Vital Signs Date Time Temp Pulse Resp B/P (MAP) Pulse Ox O2 Delivery O2 Flow Rate FiO2 05/03/18 12:00 98.0 71 17 107/66 (80) 98 05/03/18 09:18 Room Air 05/03/18 08:54 97.6 05/03/18 08:00 65 05/03/18 08:00 97.6 68 16 100/63 (75) 98 05/03/18 04:00 70 05/03/18 00:00 66 05/02/18 21:00 Room Air 05/02/18 20:00 97.9 65 20 101/63 (76) 93 05/02/18 20:00 68 05/02/18 16:00 65 Intake and Output 05/02/18 05/03/18 19:00 07:00 Intake Total 240 ml Balance 240 ml Intake Oral 240 ml # Voids 1 # Bowel Movements 1 Laboratory Tests Test 05/03/18 06:15 White Blood Count 6.4 K/UL (4.8-10.8) Red Blood Count 4.89 M/UL (4.70-6.10) Hemoglobin 13.7 G/DL (14.2-18.0) L Hematocrit 40.8 % (42.0-52.0) L Mean Corpuscular Volume 83 FL (80-99) Mean Corpuscular Hemoglobin 27.9 PG (27.0-31.0) Mean Corpuscular Hemoglobin Concent 33.5 G/DL (32.0-36.0) Red Cell Distribution Width 16.0 % (11.6-14.8) H Platelet Count 152 K/UL (150-450) Mean Platelet Volume 10.2 FL (6.5-10.1) H Neutrophils (%) (Auto) 62.6 % (45.0-75.0) Lymphocytes (%) (Auto) 24.0 % (20.0-45.0) Monocytes (%) (Auto) 9.1 % (1.0-10.0) Eosinophils (%) (Auto) 3.4 % (0.0-3.0) H Basophils (%) (Auto) 1.0 % (0.0-2.0) Erythrocyte Sedimentation Rate 6 MM/HR (0-20) Sodium Level 138 MMOL/L (136-145) Potassium Level 3.9 MMOL/L (3.5-5.1) Chloride Level 106 MMOL/L (98-107) Carbon Dioxide Level 26 MMOL/L (21-32) Anion Gap 6 mmol/L (5-15) Blood Urea Nitrogen 18 mg/dL (7-18) Creatinine 1.2 MG/DL (0.55-1.30) Estimat Glomerular Filtration Rate > 60 mL/min (>60) Glucose Level 137 MG/DL (74-106) H Hemoglobin A1c 6.4 % (4.3-6.0) H Calcium Level 8.8 MG/DL (8.5-10.1) Phosphorus Level 3.0 MG/DL (2.5-4.9) Magnesium Level 2.0 MG/DL (1.8-2.4) Total Bilirubin 0.3 MG/DL (0.2-1.0) Aspartate Amino Transf (AST/SGOT) 12 U/L (15-37) L Alanine Aminotransferase (ALT/SGPT) 14 U/L (12-78) Alkaline Phosphatase 64 U/L (46-116) Troponin I 0.000 ng/mL (0.000-0.056) Total Protein 7.2 G/DL (6.4-8.2) Albumin 3.2 G/DL (3.4-5.0) L Globulin 4.0 g/dL Albumin/Globulin Ratio 0.8 (1.0-2.7) L Microbiology Date/Time Source Procedure Growth Status 05/02/18 01:00 Rectum - Preliminary Resulted Objective Refuses examination.Alert and standing in Gato Lewis MD May 03, 2018 14:19
[2018-05-03 16:00] VITALS: BP 131/75
--- NOTE | 2018-05-03 16:31 | Cardiology Report ---
APPROVED REPORT EXAM: Two-dimensional and M-mode echocardiogram with Doppler and color Doppler. INDICATION Chest Pain M-Mode DIMENSIONS IVSd1.2 (0.7-1.1cm)Left Atrium (MM)3.8 (1.6-4.0cm) LVDd3.1 (3.5-5.6cm)Aortic Root3.5 (2.0-3.7cm) PWd1.5 (0.7-1.1cm)Aortic Cusp Exc.2.2 (1.5-2.0cm) LVDs2.3 (2.5-4.0cm) PWs2.2 cm Normal left ventricular chamber size, systolic function and wall motion. Left ventricular ejection fraction estimated to be 55 %. Mild left ventricular hypertrophy. No evidence of pericardial effusion. All chamber sizes are within normal limits. Focal aortic valve sclerosis with adequate cusp excursion. Thickened mitral valve leaflets with normal excursion. Mild mitral annulus and aortic root calcification. Normal pulmonic valve structure. Normal tricuspid valve structure. Probable pacemaker wire present in the right side chambers. IVC measures at 2.1 cm with physiological collaspe. A color flow and spectral Doppler study was performed and revealed: Mild aortic insufficiency. Trace mitral regurgitation. Mitral inflow velocities indicates possible pseudo normalization pattern implying significant left ventricular diastolic dysfunction (Grade II). Mild tricuspid regurgitation. Tricuspid systolic velocities suggests peak right ventricular systolic pressure of 35 mmHg, consistent with mild pulmonary hypertension. Mild pulmonic regurgitation present.
--- NOTE | 2018-05-03 16:32 | Cardiology Report ---
APPROVED REPORT EKG Measurement Heart [id number] Normal sinus rhythm Normal ECG
--- NOTE | 2018-05-03 17:45 | Internal Med Progress Note ---
Subjective Date of Service: May 03, 2018 Physician Name AmaCharbel Attending Physician Rik Montes MD Current Medications Medications (Trade) Dose Ordered Sig/Kristan Route PRN Reason Start Time Stop Time Status Last Admin Dose Admin Acetaminophen (Tylenol) 650 mg Q4H PRN ORAL Mild Pain/Temp > 100.5 05/02/18 01:00 06/01/18 00:59 Apixaban (Eliquis) 5 mg BID ORAL 05/02/18 18:00 06/01/18 17:59 05/03/18 16:54 Aspirin (ASA) 81 mg DAILY ORAL 05/02/18 09:00 06/01/18 08:59 05/03/18 08:22 Atorvastatin Calcium (Lipitor) 10 mg BEDTIME ORAL 05/02/18 21:00 06/01/18 20:59 05/02/18 21:54 Brimonidine Tartrate (Alphagan) 1 drop BID BOTH EYES 05/02/18 09:00 06/01/18 08:59 05/03/18 16:55 Dextrose (Dextrose 50%) 25 ml Q30M PRN IV Hypoglycemia 05/02/18 01:00 06/01/18 00:59 Dextrose (Dextrose 50%) 50 ml Q30M PRN IV Hypoglycemia 05/02/18 01:00 06/01/18 00:59 Dorzolamide/ Timolol (Cosopt) 1 drop TWICE A DAY BOTH EYES 05/02/18 09:00 06/01/18 08:59 05/03/18 16:56 Finasteride (Proscar) 5 mg DAILY ORAL 05/02/18 09:00 06/01/18 08:59 05/03/18 08:23 Insulin Aspart (NovoLOG) BEFORE MEALS AND HS SUBQ 05/02/18 06:30 06/01/18 06:29 05/03/18 06:34 Latanoprost (Xalatan) 1 drop QHS BOTH EYES 05/02/18 21:00 06/01/18 20:59 05/02/18 21:53 Metformin HCl (Glucophage) 500 mg TWICE A DAY ORAL 05/02/18 18:00 06/01/18 17:59 05/03/18 16:53 Morphine Sulfate (Morphine Sulfate) 2 mg Q6H PRN IVP Severe Breakthru Pain (>7) 05/02/18 01:00 11/22/18 00:59 05/03/18 16:56 Nitroglycerin (Ntg) 0.4 mg Q5M PRN SL Prn Chest Pain 05/02/18 01:00 06/01/18 00:59 Ondansetron HCl (Zofran) 4 mg Q6H PRN IVP Nausea & Vomiting 05/02/18 01:00 06/01/18 00:59 Tamsulosin HCl (Flomax) 0.4 mg BEDTIME ORAL 05/02/18 21:00 06/01/18 20:59 05/02/18 21:53 Allergies: Coded Allergies: HYDROMORPHONE (Verified Adverse Reaction, Severe, "overwhelms him. can tolerate morphine", 03/01/14) HYDROCODONE (Verified Adverse Reaction, Intermediate, N/V, 10/08/15) ROS Limited/Unobtainable: No Constitutional: Reports: no symptoms HEENT: Reports: no symptoms Cardiovascular: Reports: chest pain Respiratory: Reports: no symptoms Gastrointestinal/Abdominal: Reports: no symptoms Genitourinary: Reports: no symptoms Neurologic/Psychiatric: Reports: no symptoms Subjective 63 YO M admitted with chest pain. Cover for Int Med-Dr Montes. Objective Last Vital Signs Date Time Temp Pulse Resp B/P (MAP) Pulse Ox O2 Delivery O2 Flow Rate FiO2 05/03/18 16:00 98.1 76 20 131/75 (93) 98 05/03/18 09:18 Room Air General Appearance: WD/WN, no apparent distress, alert EENT: PERRL/EOMI, normal ENT inspection, TMs normal Neck: non-tender, normal alignment, supple Cardiovascular: normal peripheral pulses, normal rate, regular rhythm, no gallop/murmur, no JVD Respiratory/Chest: chest wall non-tender, lungs clear, normal breath sounds, no respiratory distress, no accessory muscle use Abdomen: normal bowel sounds, non tender, soft, no organomegaly, no mass Extremities: normal range of motion, non-tender Neurologic: regional service 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 II-XII grossly normal, no motor/sensory deficits Skin: normal pigmentation, warm/dry Laboratory Tests Test 05/03/18 06:15 White Blood Count 6.4 K/UL (4.8-10.8) Red Blood Count 4.89 M/UL (4.70-6.10) Hemoglobin 13.7 G/DL (14.2-18.0) L Hematocrit 40.8 % (42.0-52.0) L Mean Corpuscular Volume 83 FL (80-99) Mean Corpuscular Hemoglobin 27.9 PG (27.0-31.0) Mean Corpuscular Hemoglobin Concent 33.5 G/DL (32.0-36.0) Red Cell Distribution Width 16.0 % (11.6-14.8) H Platelet Count 152 K/UL (150-450) Mean Platelet Volume 10.2 FL (6.5-10.1) H Neutrophils (%) (Auto) 62.6 % (45.0-75.0) Lymphocytes (%) (Auto) 24.0 % (20.0-45.0) Monocytes (%) (Auto) 9.1 % (1.0-10.0) Eosinophils (%) (Auto) 3.4 % (0.0-3.0) H Basophils (%) (Auto) 1.0 % (0.0-2.0) Erythrocyte Sedimentation Rate 6 MM/HR (0-20) Sodium Level 138 MMOL/L (136-145) Potassium Level 3.9 MMOL/L (3.5-5.1) Chloride Level 106 MMOL/L (98-107) Carbon Dioxide Level 26 MMOL/L (21-32) Anion Gap 6 mmol/L (5-15) Blood Urea Nitrogen 18 mg/dL (7-18) Creatinine 1.2 MG/DL (0.55-1.30) Estimat Glomerular Filtration Rate > 60 mL/min (>60) Glucose Level 137 MG/DL (74-106) H Hemoglobin A1c 6.4 % (4.3-6.0) H Calcium Level 8.8 MG/DL (8.5-10.1) Phosphorus Level 3.0 MG/DL (2.5-4.9) Magnesium Level 2.0 MG/DL (1.8-2.4) Total Bilirubin 0.3 MG/DL (0.2-1.0) Aspartate Amino Transf (AST/SGOT) 12 U/L (15-37) L Alanine Aminotransferase (ALT/SGPT) 14 U/L (12-78) Alkaline Phosphatase 64 U/L (46-116) Troponin I 0.000 ng/mL (0.000-0.056) Total Protein 7.2 G/DL (6.4-8.2) Albumin 3.2 G/DL (3.4-5.0) L Globulin 4.0 g/dL Albumin/Globulin Ratio 0.8 (1.0-2.7) L Microbiology Date/Time Source Procedure Growth Status 05/02/18 01:00 Rectum - Preliminary Resulted Intake and Output 05/02/18 05/03/18 19:00 07:00 Intake Total 240 ml Balance 240 ml Intake Oral 240 ml # Voids 1 # Bowel Movements 1 Assessment/Plan Problem List: (1) Chest pain Assessment & Plan: Rulled out for ID per cardiology. Recent stress test at [facility] (2) Pacemaker complications (3) Pulmonary embolism (4) Diabetes mellitus type II, controlled Assessment & Plan: Continue glucophage and novolg sliding scale (5) Hypercholesteremia Assessment & Plan: Cont lipitor (6) Bradycardia Assessment & Plan: S/P pacemaker (7) Glaucoma (8) Pacemaker Status: progressing Charbel Serrato MD May 03, 2018 17:45
[2018-05-03] MEDS: Tamsulosin 0.4mg cap ORAL SCH (21:20)
[2018-05-03] MEDS: Latanoprost 0.005% Opth 2.5ml Soln BOTH EYES SCH (21:20)
[2018-05-04] VITALS: BP 100/74
[2018-05-04 04:00] VITALS: BP 98/62
[2018-05-04] MEDS: NovoLOG Insulin Flexpen SUBQ SCH ×4 (06:23→21:00)
[2018-05-04 08:00] VITALS: BP 139/61
[2018-05-04] MEDS: metFORMIN 500mg tab ORAL SCH ×2 (08:43→17:44)
[2018-05-04] MEDS: Eliquis 2.5mg tablet ORAL SCH ×2 (08:43→17:44)
[2018-05-04] MEDS: Aspirin Baby 81mg ORAL SCH (08:43)
[2018-05-04] MEDS: Cosopt Opth Soln 10 mL Btl BOTH EYES SCH ×2 (08:44→17:45)
[2018-05-04] MEDS: Brimonidine 0.2% Opth Sol BOTH EYES SCH ×2 (08:44→17:45)
[2018-05-04] MEDS: Morphine Sulfate 2mg/ml Inj IVP PRN ×2 (11:38→17:44)
[2018-05-04 12:00] VITALS: BP 124/52
--- NOTE | 2018-05-04 14:42 | Cardiac Electrophysiology PN ---
Assessment/Plan Assessment/Plan 1. Atypical chest pain. Ruled out for [place]. Has had numerous admissions for chest pain. Stress test at [facility] was negative. Echocardiogram showed EF of 55%. No evidence of pericardial effusion. 2. Bradycardia, status post permanent pacemaker implantation. The pacemaker was interrogated at recent admission at [facility] with normal function. 3. S/P Thoracotomy for PE in past. On Eliquis 5 bid 4. Glaucoma. 5. Noncompliance.Appealed medicare again regarding discharge. DC tele DW RN I will sign off Subjective Subjective Noncompliant. RN at bedside.Walking in his room. DCed but Appealed medicare. Objective Last 24 Hour Vital Signs Date Time Temp Pulse Resp B/P (MAP) Pulse Ox O2 Delivery O2 Flow Rate FiO2 05/04/18 12:10 97.5 05/04/18 12:00 97.5 72 18 124/52 (76) 97 05/04/18 12:00 75 05/04/18 09:00 Room Air 05/04/18 08:00 65 05/04/18 08:00 97.5 77 18 139/61 (87) 97 05/04/18 04:00 72 05/04/18 04:00 97.4 70 18 98/62 (74) 95 05/04/18 00:00 70 05/04/18 00:00 97.6 71 18 100/74 (83) 97 05/03/18 21:00 Room Air 05/03/18 20:00 73 05/03/18 20:00 73 05/03/18 16:00 98.1 76 20 131/75 (93) 98 05/03/18 16:00 81 Intake and Output 05/03/18 05/04/18 19:00 07:00 Intake Total 1440 ml 200 ml Balance 1440 ml 200 ml Intake Oral 1440 ml 200 ml # Voids 7 # Bowel Movements 1 Microbiology Date/Time Source Procedure Growth Status 05/02/18 01:00 Nasal Nares MRSA Culture - Final NO METHICILLIN RESISTANT STAPH AUREUS... Complete 05/02/18 01:00 Rectum - Final NO CARBAPENEM-RESISTANT ENTEROBACTERI... Complete 05/02/18 01:00 Rectal Mucosa VRE Culture - Final NO VANCOMYCIN RESISTANT ENTEROCOCCUS ... Complete Objective Refuses examination.Alert in Gato Lewis MD May 04, 2018 14:42
[2018-05-04 16:00] VITALS: BP 134/77
--- NOTE | 2018-05-04 16:35 | Internal Med Progress Note ---
Subjective Date of Service: May 04, 2018 Physician Name Serrato,Charbel Attending Physician Rik Montes MD Current Medications Medications (Trade) Dose Ordered Sig/Kristan Route PRN Reason Start Time Stop Time Status Last Admin Dose Admin Acetaminophen (Tylenol) 650 mg Q4H PRN ORAL Mild Pain/Temp > 100.5 05/02/18 01:00 06/01/18 00:59 Apixaban (Eliquis) 5 mg BID ORAL 05/02/18 18:00 06/01/18 17:59 05/04/18 08:43 Aspirin (ASA) 81 mg DAILY ORAL 05/02/18 09:00 06/01/18 08:59 05/04/18 08:43 Atorvastatin Calcium (Lipitor) 10 mg BEDTIME ORAL 05/02/18 21:00 06/01/18 20:59 05/03/18 21:20 Brimonidine Tartrate (Alphagan) 1 drop BID BOTH EYES 05/02/18 09:00 06/01/18 08:59 05/04/18 08:44 Dextrose (Dextrose 50%) 25 ml Q30M PRN IV Hypoglycemia 05/02/18 01:00 06/01/18 00:59 Dextrose (Dextrose 50%) 50 ml Q30M PRN IV Hypoglycemia 05/02/18 01:00 06/01/18 00:59 Dorzolamide/ Timolol (Cosopt) 1 drop TWICE A DAY BOTH EYES 05/02/18 09:00 06/01/18 08:59 05/04/18 08:44 Finasteride (Proscar) 5 mg DAILY ORAL 05/02/18 09:00 06/01/18 08:59 05/04/18 08:43 Insulin Aspart (NovoLOG) BEFORE MEALS AND HS SUBQ 05/02/18 06:30 06/01/18 06:29 05/04/18 11:45 Latanoprost (Xalatan) 1 drop QHS BOTH EYES 05/02/18 21:00 06/01/18 20:59 05/03/18 21:20 Metformin HCl (Glucophage) 500 mg TWICE A DAY ORAL 05/02/18 18:00 06/01/18 17:59 05/04/18 08:43 Morphine Sulfate (Morphine Sulfate) 2 mg Q6H PRN IVP Severe Breakthru Pain (>7) 05/02/18 01:00 05/09/18 00:59 05/04/18 11:38 Nitroglycerin (Ntg) 0.4 mg Q5M PRN SL Prn Chest Pain 05/02/18 01:00 06/01/18 00:59 Ondansetron HCl (Zofran) 4 mg Q6H PRN IVP Nausea & Vomiting 05/02/18 01:00 06/01/18 00:59 Tamsulosin HCl (Flomax) 0.4 mg BEDTIME ORAL 05/02/18 21:00 06/01/18 20:59 05/03/18 21:20 Allergies: Coded Allergies: HYDROMORPHONE (Verified Adverse Reaction, Severe, "overwhelms him. can tolerate morphine", 03/01/14) HYDROCODONE (Verified Adverse Reaction, Intermediate, N/V, 10/08/15) ROS Limited/Unobtainable: No Constitutional: Reports: no symptoms HEENT: Reports: no symptoms Cardiovascular: Reports: no symptoms Respiratory: Reports: no symptoms Gastrointestinal/Abdominal: Reports: no symptoms Genitourinary: Reports: no symptoms Neurologic/Psychiatric: Reports: no symptoms Subjective 63 YO M admitted with chest pain. Cover for [facility] Med-Dr Montes. Await appeal of discharge to Medicare Objective Last Vital Signs Date Time Temp Pulse Resp B/P (MAP) Pulse Ox O2 Delivery O2 Flow Rate FiO2 05/04/18 12:10 97.5 05/04/18 12:00 72 18 124/52 (76) 97 05/04/18 09:00 Room Air Microbiology Date/Time Source Procedure Growth Status 05/02/18 01:00 Nasal Nares MRSA Culture - Final NO METHICILLIN RESISTANT STAPH AUREUS... Complete 05/02/18 01:00 Rectum - Final NO CARBAPENEM-RESISTANT ENTEROBACTERI... Complete 05/02/18 01:00 Rectal Mucosa VRE Culture - Final NO VANCOMYCIN RESISTANT ENTEROCOCCUS ... Complete Intake and Output 05/03/18 05/04/18 19:00 07:00 Intake Total 1440 ml 200 ml Balance 1440 ml 200 ml Intake Oral 1440 ml 200 ml # Voids 7 # Bowel Movements 1 Objective General Appearance: WD/WN, no apparent distress, alert EENT: PERRL/EOMI, normal ENT inspection, TMs normal Neck: non-tender, normal alignment, supple Cardiovascular: normal peripheral pulses, normal rate, regular rhythm, no gallop/murmur, no JVD Respiratory/Chest: chest wall non-tender, lungs clear, normal breath sounds, no respiratory distress, no accessory muscle use Abdomen: normal bowel sounds, non tender, soft, no organomegaly, no mass Extremities: normal range of motion, non-tender Neurologic: upstairs maid II-XII grossly normal, no motor/sensory deficits Skin: normal pigmentation, warm/dry Assessment/Plan Problem List: (1) Chest pain Assessment & Plan: Rulled out for [place] per cardiology. Recent stress test at [facility] [place] (2) Pacemaker complications (3) Pulmonary embolism (4) Diabetes mellitus type II, controlled Assessment & Plan: Continue glucophage and novolg sliding scale (5) Hypercholesteremia Assessment & Plan: Cont lipitor (6) Bradycardia Assessment & Plan: S/P pacemaker (7) Glaucoma (8) Pacemaker Assessment/Plan Patient appealing discharge with Medicare Charbel Serrato MD May 04, 2018 16:35
--- NOTE | 2018-05-04 18:28 | Pulmonology Progress Note ---
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 can tolerate morphine", 03/01/14) HYDROCODONE (Verified Adverse Reaction, Intermediate, N/V, 10/08/15) Objective Vital Signs Noted General Appearance: WD/WN HEENT: normocephalic, atraumatic Respiratory/Chest: chest wall non-tender, lungs clear Cardiovascular: normal peripheral pulses, regular rhythm Abdomen: normal bowel sounds, soft, non tender, no scars Extremities: no cyanosis Skin: no lesions Microbiology Date/Time Source Procedure Growth Status 05/02/18 01:00 Rectum - Preliminary Resulted Laboratory Tests 05/03/18 06:15: White Blood Count 6.4, Red Blood Count 4.89, Hemoglobin 13.7L, Hematocrit 40.8L , Mean Corpuscular Volume 83, Mean Corpuscular Hemoglobin 27.9, Mean Corpuscular Hemoglobin Concent 33.5, Red Cell Distribution Width 16.0H, Platelet Count 152, Mean Platelet Volume 10.2H, Neutrophils (%) (Auto) 62.6, Lymphocytes (%) (Auto) 24.0, Monocytes (%) (Auto) 9.1, Eosinophils (%) (Auto) 3.4H, Basophils (%) (Auto) 1.0, Erythrocyte Sedimentation Rate 6, Sodium Level 138, Potassium Level 3.9, Chloride Level 106, Carbon Dioxide Level 26, Anion Gap 6, Blood Urea Nitrogen 18, Creatinine 1.2, Estimat Glomerular Filtration Rate > 60, Glucose Level 137H, Hemoglobin A1c 6.4H, Calcium Level 8.8, Phosphorus Level 3.0, Magnesium Level 2.0, Total Bilirubin 0.3, Aspartate Amino Transf (AST/SGOT) 12L, Alanine Aminotransferase (ALT/SGPT) 14, Alkaline Phosphatase 64, Troponin I 0.000, Total Protein 7.2, Albumin 3.2L, Globulin 4.0 , Albumin/Globulin Ratio 0.8L Current Medications Medications (Trade) Dose Ordered Sig/Kristan Route PRN Reason Start Time Stop Time Status Last Admin Dose Admin Acetaminophen (Tylenol) 650 mg Q4H PRN ORAL Mild Pain/Temp > 100.5 05/02/18 01:00 06/01/18 00:59 Apixaban (Eliquis) 5 mg BID ORAL 05/02/18 18:00 06/01/18 17:59 05/03/18 08:22 Aspirin (ASA) 81 mg DAILY ORAL 05/02/18 09:00 06/01/18 08:59 05/03/18 08:22 Atorvastatin Calcium (Lipitor) 10 mg BEDTIME ORAL 05/02/18 21:00 06/01/18 20:59 05/02/18 21:54 Brimonidine Tartrate (Alphagan) 1 drop BID BOTH EYES 05/02/18 09:00 06/01/18 08:59 05/03/18 08:23 Dextrose (Dextrose 50%) 25 ml Q30M PRN IV Hypoglycemia 05/02/18 01:00 06/01/18 00:59 Dextrose (Dextrose 50%) 50 ml Q30M PRN IV Hypoglycemia 05/02/18 01:00 06/01/18 00:59 Dorzolamide/ Timolol (Cosopt) 1 drop TWICE A DAY BOTH EYES 05/02/18 09:00 06/01/18 08:59 05/03/18 08:24 Finasteride (Proscar) 5 mg DAILY ORAL 05/02/18 09:00 06/01/18 08:59 05/03/18 08:23 Insulin Aspart (NovoLOG) BEFORE MEALS AND HS SUBQ 05/02/18 06:30 06/01/18 06:29 05/03/18 06:34 Latanoprost (Xalatan) 1 drop QHS BOTH EYES 05/02/18 21:00 06/01/18 20:59 05/02/18 21:53 Metformin HCl (Glucophage) 500 mg TWICE A DAY ORAL 05/02/18 18:00 06/01/18 17:59 05/03/18 08:22 Morphine Sulfate (Morphine Sulfate) 2 mg Q6H PRN IVP Severe Breakthru Pain (>7) 05/02/18 01:00 05/09/18 00:59 05/03/18 08:24 Nitroglycerin (Ntg) 0.4 mg Q5M PRN SL Prn Chest Pain 05/02/18 01:00 06/01/18 00:59 Ondansetron HCl (Zofran) 4 mg Q6H PRN IVP Nausea & Vomiting 05/02/18 01:00 06/01/18 00:59 Tamsulosin HCl (Flomax) 0.4 mg BEDTIME ORAL 05/02/18 21:00 06/01/18 20:59 05/02/18 21:53 Subjective ROS Limited/Unobtainable: No Allergies: Coded Allergies: HYDROMORPHONE (Verified Adverse Reaction, Severe, "overwhelms him. can tolerate morphine", 03/01/14) HYDROCODONE (Verified Adverse Reaction, Intermediate, N/V, 10/08/15) Objective Last 24 Hour Vital Signs Date Time Temp Pulse Resp B/P (MAP) Pulse Ox O2 Delivery O2 Flow Rate FiO2 05/04/18 16:00 97.7 72 18 134/77 (96) 97 05/04/18 16:00 76 05/04/18 12:10 97.5 05/04/18 12:00 97.5 72 18 124/52 (76) 97 05/04/18 12:00 75 05/04/18 09:00 Room Air 05/04/18 08:00 65 05/04/18 08:00 97.5 77 18 139/61 (87) 97 05/04/18 04:00 72 05/04/18 04:00 97.4 70 18 98/62 (74) 95 05/04/18 00:00 70 05/04/18 00:00 97.6 71 18 100/74 (83) 97 05/03/18 21:00 Room Air 05/03/18 20:00 73 05/03/18 20:00 73 Intake and Output 05/03/18 05/04/18 19:00 07:00 Intake Total 1440 ml 200 ml Balance 1440 ml 200 ml Intake Oral 1440 ml 200 ml # Voids 7 # Bowel Movements 1 Microbiology Date/Time Source Procedure Growth Status 05/02/18 01:00 Nasal Nares MRSA Culture - Final NO METHICILLIN RESISTANT STAPH AUREUS... Complete 05/02/18 01:00 Rectum - Final NO CARBAPENEM-RESISTANT ENTEROBACTERI... Complete 05/02/18 01:00 Rectal Mucosa VRE Culture - Final NO VANCOMYCIN RESISTANT ENTEROCOCCUS ... Complete Current Medications Medications (Trade) Dose Ordered Sig/Kristan Route PRN Reason Start Time Stop Time Status Last Admin Dose Admin Acetaminophen (Tylenol) 650 mg Q4H PRN ORAL Mild Pain/Temp > 100.5 05/02/18 01:00 06/01/18 00:59 Apixaban (Eliquis) 5 mg BID ORAL 05/02/18 18:00 06/01/18 17:59 05/04/18 17:44 Aspirin (ASA) 81 mg DAILY ORAL 05/02/18 09:00 06/01/18 08:59 05/04/18 08:43 Atorvastatin Calcium (Lipitor) 10 mg BEDTIME ORAL 05/02/18 21:00 06/01/18 20:59 05/03/18 21:20 Brimonidine Tartrate (Alphagan) 1 drop BID BOTH EYES 05/02/18 09:00 06/01/18 08:59 05/04/18 17:45 Dextrose (Dextrose 50%) 25 ml Q30M PRN IV Hypoglycemia 05/02/18 01:00 06/01/18 00:59 Dextrose (Dextrose 50%) 50 ml Q30M PRN IV Hypoglycemia 05/02/18 01:00 06/01/18 00:59 Dorzolamide/ Timolol (Cosopt) 1 drop TWICE A DAY BOTH EYES 05/02/18 09:00 06/01/18 08:59 05/04/18 17:45 Finasteride (Proscar) 5 mg DAILY ORAL 05/02/18 09:00 06/01/18 08:59 05/04/18 08:43 Insulin Aspart (NovoLOG) BEFORE MEALS AND HS SUBQ 05/02/18 06:30 06/01/18 06:29 05/04/18 11:45 Latanoprost (Xalatan) 1 drop QHS BOTH EYES 05/02/18 21:00 06/01/18 20:59 05/03/18 21:20 Metformin HCl (Glucophage) 500 mg TWICE A DAY ORAL 05/02/18 18:00 06/01/18 17:59 05/04/18 17:44 Morphine Sulfate (Morphine Sulfate) 2 mg Q6H PRN IVP Severe Breakthru Pain (>7) 05/02/18 01:00 05/09/18 00:59 05/04/18 17:44 Nitroglycerin (Ntg) 0.4 mg Q5M PRN SL Prn Chest Pain 05/02/18 01:00 06/01/18 00:59 Ondansetron HCl (Zofran) 4 mg Q6H PRN IVP Nausea & Vomiting 05/02/18 01:00 06/01/18 00:59 Tamsulosin HCl (Flomax) 0.4 mg BEDTIME ORAL 05/02/18 21:00 06/01/18 20:59 05/03/18 21:20 Bakari Escalera MD May 04, 2018 18:28
[2018-05-04] MEDS: Tamsulosin 0.4mg cap ORAL SCH (21:50)
[2018-05-04] MEDS: Latanoprost 0.005% Opth 2.5ml Soln BOTH EYES SCH (21:50)
--- NOTE | 2018-05-04 23:12 | Consultation ---
History of Present Illness Present Illness HPI 63-year-old male, who presents with chief complaint of chest pain.The patient is status post pacemaker implantation in January 2018. The patient states he was at home last evening when he felt chest pain. The pt gets agitated and irritable often. He has med seeking behavior. the pt is dramatic and stated that he has lots of pain. the pt is manipulative. denied si/hi Allergies: Coded Allergies: HYDROMORPHONE (Verified Adverse Reaction, Severe, "overwhelms him. can tolerate morphine", 03/01/14) HYDROCODONE (Verified Adverse Reaction, Intermediate, N/V, 10/08/15) Medication History Scheduled Apixaban (Eliquis), 5 MG PO BID, (Reported) Apixaban (Eliquis), 5 MG PO BID, (Reported) Atorvastatin (Lipitor), 10 MG ORAL DAILY, (Reported) Atorvastatin Calcium* (Lipitor*), 10 MG ORAL BEDTIME, (Reported) Brimonidine Tartrate* (Alphagan*), 1 DROP BOTH EYES TID, (Reported) Brimonidine Tartrate* (Alphagan*), 1 DROP BOTH EYES BID, (Reported) Dorzolamide HCl/Timolol Maleat (Dorzolamide-Timolol Eye Drops), 1 DROP BOTH EYES TWICE A DAY, (Reported) Dorzolamide/Timolol/Pf (Cosopt Pf Eye Drops), 1 EACH OP BID, (Reported) Finasteride* (Proscar*), 5 MG ORAL DAILY, (Reported) Hydrocodone Bit/Acetaminophen 10-325* (Hydrocodon-Acetaminophn 10-325*), 1 TAB ORAL Q6H, (Reported) Metformin Hcl* (Metformin Hcl*), 500 MG ORAL TWICE A DAY, (Reported) Tamsulosin Hcl (Tamsulosin Hcl*), 0.4 MG ORAL BEDTIME, (Reported) Travoprost (Travatan Z), 1 DROP OP BEDTIME, (Reported) Travoprost (Benzalkonium) (Travatan 0.004% Eye Drop), 1 DROP BOTH EYES BEDTIME, (Reported) Patient History Limited by: medical condition History Provided By: Patient, Medical Record, PMD Healthcare decision maker Resuscitation status Full Code Advanced Directive on File Past Medical/Surgical History Past Medical/Surgical History: (1) Costochondritis (2) 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 (3) Abnormal ICD sensing (4) Bradycardia (5) Hypercholesteremia (6) Pulmonary embolism (7) Chest pain (8) Glaucoma (9) Pacemaker (10) Diabetes mellitus type II, controlled (11) Pacemaker complications (12) DVT (deep venous thrombosis) (13) DDD (degenerative disc disease), lumbar (14) Chest wall pain (15) COPD (chronic obstructive pulmonary disease) (16) Acute coronary syndrome (17) Lumbar spondylosis (18) Knee osteoarthritis (19) Ventricular mural thrombus (20) HTN (hypertension) (21) Complete heart block (22) Hx pulmonary embolism (23) Diabetes mellitus (24) CAD (coronary artery disease) (25) Asthma Review of Systems Psychiatric: Reports: prior hx, anxiety, emotional problems Physical Exam General Appearance: alert, moderate distress Neurologic: oriented x 3, responsive, depressed affect Last 24 Hour Vital Signs Date Time Temp Pulse Resp B/P (MAP) Pulse Ox O2 Delivery O2 Flow Rate FiO2 05/04/18 21:00 Room Air 05/04/18 18:15 97.7 05/04/18 16:00 97.7 72 18 134/77 (96) 97 05/04/18 16:00 76 05/04/18 12:00 97.5 72 18 124/52 (76) 97 05/04/18 12:00 75 05/04/18 09:00 Room Air 05/04/18 08:00 65 05/04/18 08:00 97.5 77 18 139/61 (87) 97 05/04/18 04:00 72 05/04/18 04:00 97.4 70 18 98/62 (74) 95 05/04/18 00:00 70 05/04/18 00:00 97.6 71 18 100/74 (83) 97 Intake and Output 05/03/18 05/04/18 19:00 07:00 Intake Total 1440 ml 200 ml Balance 1440 ml 200 ml Intake Oral 1440 ml 200 ml # Voids 7 # Bowel Movements 1 Height (Feet): 5 Height (Inches): 8.00 Weight (Pounds): 198 Medications Current Medications Medications (Trade) Dose Ordered Sig/Kristan Route PRN Reason Start Time Stop Time Status Last Admin Dose Admin Acetaminophen (Tylenol) 650 mg Q4H PRN ORAL Mild Pain/Temp > 100.5 05/02/18 01:00 06/01/18 00:59 Apixaban (Eliquis) 5 mg BID ORAL 05/02/18 18:00 06/01/18 17:59 05/04/18 17:44 Aspirin (ASA) 81 mg DAILY ORAL 05/02/18 09:00 06/01/18 08:59 05/04/18 08:43 Atorvastatin Calcium (Lipitor) 10 mg BEDTIME ORAL 05/02/18 21:00 06/01/18 20:59 05/04/18 21:50 Brimonidine Tartrate (Alphagan) 1 drop BID BOTH EYES 05/02/18 09:00 06/01/18 08:59 05/04/18 17:45 Dextrose (Dextrose 50%) 25 ml Q30M PRN IV Hypoglycemia 05/02/18 01:00 06/01/18 00:59 Dextrose (Dextrose 50%) 50 ml Q30M PRN IV Hypoglycemia 05/02/18 01:00 06/01/18 00:59 Dorzolamide/ Timolol (Cosopt) 1 drop TWICE A DAY BOTH EYES 05/02/18 09:00 06/01/18 08:59 05/04/18 17:45 Finasteride (Proscar) 5 mg DAILY ORAL 05/02/18 09:00 06/01/18 08:59 05/04/18 08:43 Insulin Aspart (NovoLOG) BEFORE MEALS AND HS SUBQ 05/02/18 06:30 06/01/18 06:29 05/04/18 11:45 Latanoprost (Xalatan) 1 drop QHS BOTH EYES 05/02/18 21:00 06/01/18 20:59 05/04/18 21:50 Metformin HCl (Glucophage) 500 mg TWICE A DAY ORAL 05/02/18 18:00 06/01/18 17:59 05/04/18 17:44 Morphine Sulfate (Morphine Sulfate) 2 mg Q6H PRN IVP Severe Breakthru Pain (>7) 05/02/18 01:00 05/09/18 00:59 05/04/18 17:44 Nitroglycerin (Ntg) 0.4 mg Q5M PRN SL Prn Chest Pain 05/02/18 01:00 06/01/18 00:59 Ondansetron HCl (Zofran) 4 mg Q6H PRN IVP Nausea & Vomiting 05/02/18 01:00 06/01/18 00:59 Tamsulosin HCl (Flomax) 0.4 mg BEDTIME ORAL 05/02/18 21:00 06/01/18 20:59 05/04/18 21:50 Assessment/Plan Status: stable Assessment/Plan cluster B personality disorder. Anxiety d/o Opioid dependence -the pt is refusing meds -the pt stated that "you guys want to use my mental health days" -The pt was provided ro/Mica Luciano MD May 04, 2018 23:12
--- NOTE | 2018-05-04 23:12 | General Progress Note ---
Assessment/Plan Status: stable Assessment/Plan cluster B personality disorder. Anxiety d/o Opioid dependence -the pt is refusing meds -the pt stated that "you guys want to use my mental health days" -The pt was provided ro/st -The pt is uncooperative and refusing to leave uncooperative with staff Subjective Neurologic/Psychiatric: Reports: anxiety, depressed, emotional problems Allergies: Coded Allergies: HYDROMORPHONE (Verified Adverse Reaction, Severe, "overwhelms him. can tolerate morphine", 03/01/14) HYDROCODONE (Verified Adverse Reaction, Intermediate, N/V, 10/08/15) Objective Last 24 Hour Vital Signs Date Time Temp Pulse Resp B/P (MAP) Pulse Ox O2 Delivery O2 Flow Rate FiO2 05/04/18 21:00 Room Air 05/04/18 18:15 97.7 05/04/18 16:00 97.7 72 18 134/77 (96) 97 05/04/18 16:00 76 05/04/18 12:00 97.5 72 18 124/52 (76) 97 05/04/18 12:00 75 05/04/18 09:00 Room Air 05/04/18 08:00 65 05/04/18 08:00 97.5 77 18 139/61 (87) 97 05/04/18 04:00 72 05/04/18 04:00 97.4 70 18 98/62 (74) 95 05/04/18 00:00 70 05/04/18 00:00 97.6 71 18 100/74 (83) 97 Intake and Output 05/03/18 05/04/18 19:00 07:00 Intake Total 1440 ml 200 ml Balance 1440 ml 200 ml Intake Oral 1440 ml 200 ml # Voids 7 # Bowel Movements 1 Height (Feet): 5 Height (Inches): 8.00 Weight (Pounds): 198 General Appearance: alert Neurologic: oriented x 3, responsive, depressed affect Mica Gómez MD May 04, 2018 23:12
[2018-05-05] VITALS: BP 116/73
[2018-05-05] MEDS: Morphine Sulfate 2mg/ml Inj IVP PRN ×3 (00:02→17:15)
[2018-05-05 04:00] VITALS: BP 112/66
[2018-05-05] MEDS: NovoLOG Insulin Flexpen SUBQ SCH ×4 (06:30→21:00)
[2018-05-05 08:00] VITALS: BP 119/70
[2018-05-05] MEDS: metFORMIN 500mg tab ORAL SCH ×2 (10:24→17:15)
[2018-05-05] MEDS: Eliquis 2.5mg tablet ORAL SCH ×2 (10:25→17:15)
[2018-05-05] MEDS: Aspirin Baby 81mg ORAL SCH (10:25)
[2018-05-05] MEDS: Brimonidine 0.2% Opth Sol BOTH EYES SCH ×2 (10:26→17:15)
[2018-05-05] MEDS: Cosopt Opth Soln 10 mL Btl BOTH EYES SCH ×2 (10:26→17:15)
[2018-05-05 12:00] VITALS: BP 123/74
--- NOTE | 2018-05-05 12:53 | Internal Med Progress Note ---
Subjective Date of Service: May 05, 2018 Physician Name Charbel Serrato Attending Physician Rik Montes MD Current Medications Medications (Trade) Dose Ordered Sig/Kristan Route PRN Reason Start Time Stop Time Status Last Admin Dose Admin Acetaminophen (Tylenol) 650 mg Q4H PRN ORAL Mild Pain/Temp > 100.5 05/02/18 01:00 06/01/18 00:59 Apixaban (Eliquis) 5 mg BID ORAL 05/02/18 18:00 06/01/18 17:59 05/05/18 10:25 Aspirin (ASA) 81 mg DAILY ORAL 05/02/18 09:00 06/01/18 08:59 05/05/18 10:25 Atorvastatin Calcium (Lipitor) 10 mg BEDTIME ORAL 05/02/18 21:00 06/01/18 20:59 05/04/18 21:50 Brimonidine Tartrate (Alphagan) 1 drop BID BOTH EYES 05/02/18 09:00 06/01/18 08:59 05/05/18 10:26 Dextrose (Dextrose 50%) 25 ml Q30M PRN IV Hypoglycemia 05/02/18 01:00 06/01/18 00:59 Dextrose (Dextrose 50%) 50 ml Q30M PRN IV Hypoglycemia 05/02/18 01:00 06/01/18 00:59 Dorzolamide/ Timolol (Cosopt) 1 drop TWICE A DAY BOTH EYES 05/02/18 09:00 06/01/18 08:59 05/05/18 10:26 Finasteride (Proscar) 5 mg DAILY ORAL 05/02/18 09:00 06/01/18 08:59 05/05/18 10:25 Insulin Aspart (NovoLOG) BEFORE MEALS AND HS SUBQ 05/02/18 06:30 06/01/18 06:29 05/04/18 11:45 Latanoprost (Xalatan) 1 drop QHS BOTH EYES 05/02/18 21:00 06/01/18 20:59 05/04/18 21:50 Metformin HCl (Glucophage) 500 mg TWICE A DAY ORAL 05/02/18 18:00 06/01/18 17:59 05/05/18 10:24 Morphine Sulfate (Morphine Sulfate) 2 mg Q6H PRN IVP Severe Breakthru Pain (>7) 05/02/18 01:00 11/22/18 00:59 05/05/18 10:53 Nitroglycerin (Ntg) 0.4 mg Q5M PRN SL Prn Chest Pain 05/02/18 01:00 06/01/18 00:59 Ondansetron HCl (Zofran) 4 mg Q6H PRN IVP Nausea & Vomiting 05/02/18 01:00 06/01/18 00:59 Tamsulosin HCl (Flomax) 0.4 mg BEDTIME ORAL 05/02/18 21:00 06/01/18 20:59 05/04/18 21:50 Allergies: Coded Allergies: HYDROMORPHONE (Verified Adverse Reaction, Severe, "overwhelms him. can tolerate morphine", 03/01/14) HYDROCODONE (Verified Adverse Reaction, Intermediate, N/V, 10/08/15) ROS Limited/Unobtainable: No Constitutional: Reports: no symptoms HEENT: Reports: no symptoms Cardiovascular: Reports: chest pain Respiratory: Reports: no symptoms Gastrointestinal/Abdominal: Reports: no symptoms Genitourinary: Reports: no symptoms Neurologic/Psychiatric: Reports: no symptoms Subjective 63 YO M admitted with chest pain. Cover for Int Med-Dr Montes. Await appeal of discharge to Medicare Objective Last Vital Signs Date Time Temp Pulse Resp B/P (MAP) Pulse Ox O2 Delivery O2 Flow Rate FiO2 05/05/18 12:00 97.9 64 20 123/74 (90) 97 05/05/18 09:00 Room Air Intake and Output 05/04/18 05/05/18 19:00 07:00 Intake Total 450 ml 200 ml Output Total 525 ml Balance 450 ml -325 ml Intake Oral 450 ml 200 ml Output Urine Total 525 ml # Voids 4 2 # Bowel Movements 2 1 Objective General Appearance: WD/WN, no apparent distress, alert EENT: PERRL/EOMI, normal ENT inspection, TMs normal Neck: non-tender, normal alignment, supple Cardiovascular: normal peripheral pulses, normal rate, regular rhythm, no gallop/murmur, no JVD Respiratory/Chest: chest wall non-tender, lungs clear, normal breath sounds, no respiratory distress, no accessory muscle use Abdomen: normal bowel sounds, non tender, soft, no organomegaly, no mass Extremities: normal range of motion, non-tender Neurologic: family literacy coordinator II-XII grossly normal, no motor/sensory deficits Skin: normal pigmentation, warm/dry Assessment/Plan Problem List: (1) Chest pain Assessment & Plan: Rulled out for [place] per cardiology. Recent stress test at [facility] (2) Pacemaker complications (3) Pulmonary embolism (4) Diabetes mellitus type II, controlled Assessment & Plan: Continue glucophage and novolg sliding scale (5) Hypercholesteremia Assessment & Plan: Cont lipitor (6) Bradycardia Assessment & Plan: S/P pacemaker (7) Glaucoma (8) Pacemaker Assessment/Plan Patient appealing discharge with Medicare Charbel Serrato MD May 05, 2018 12:53
--- NOTE | 2018-05-05 14:06 | Cardiac Electrophysiology PN ---
Assessment/Plan Assessment/Plan 1. Atypical chest pain. Ruled out for MS. Had numerous admissions for chest pain. Stress test at [facility] was negative. Echocardiogram showed EF of 55%. No evidence of pericardial effusion. 2. Bradycardia, status post permanent pacemaker implantation. The pacemaker was interrogated at recent admission at [facility] with normal function. 3. S/P Thoracotomy for PE in past. On Eliquis 5 bid 4. Glaucoma. 5. Noncompliance.Appealed medicare again regarding discharge. GLADYS RN Subjective Subjective Noncompliant. Appealed discharge and medicare. Tele DCed but he is refusing to go to [facility] Objective Last 24 Hour Vital Signs Date Time Temp Pulse Resp B/P (MAP) Pulse Ox O2 Delivery O2 Flow Rate FiO2 05/05/18 12:00 97.9 64 20 123/74 (90) 97 05/05/18 12:00 60 05/05/18 09:00 Room Air 05/05/18 08:00 74 05/05/18 08:00 97.9 70 20 119/70 (86) 98 05/05/18 04:00 64 05/05/18 04:00 98.2 65 18 112/66 (81) 96 05/05/18 00:00 98.0 63 20 116/73 (87) 97 05/05/18 00:00 67 05/04/18 21:00 Room Air 05/04/18 20:00 72 05/04/18 18:15 97.7 05/04/18 16:00 97.7 72 18 134/77 (96) 97 05/04/18 16:00 76 Intake and Output 05/04/18 05/05/18 19:00 07:00 Intake Total 450 ml 200 ml Output Total 525 ml Balance 450 ml -325 ml Intake Oral 450 ml 200 ml Output Urine Total 525 ml # Voids 4 2 # Bowel Movements 2 1 Objective Refuses examination. Gato Zayas MD May 05, 2018 14:06
[2018-05-05 16:00] VITALS: BP 134/78
--- NOTE | 2018-05-05 17:56 | Pulmonology Progress Note ---
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 can tolerate morphine", 03/01/14) HYDROCODONE (Verified Adverse Reaction, Intermediate, N/V, 10/08/15) Objective Vital Signs Noted General Appearance: WD/WN HEENT: normocephalic, atraumatic Respiratory/Chest: chest wall non-tender, lungs clear Cardiovascular: normal peripheral pulses, regular rhythm Abdomen: normal bowel sounds, soft, non tender, no scars Extremities: no cyanosis Skin: no lesions Microbiology Date/Time Source Procedure Growth Status 05/02/18 01:00 Rectum - Preliminary Resulted Laboratory Tests 05/03/18 06:15: White Blood Count 6.4, Red Blood Count 4.89, Hemoglobin 13.7L, Hematocrit 40.8L , Mean Corpuscular Volume 83, Mean Corpuscular Hemoglobin 27.9, Mean Corpuscular Hemoglobin Concent 33.5, Red Cell Distribution Width 16.0H, Platelet Count 152, Mean Platelet Volume 10.2H, Neutrophils (%) (Auto) 62.6, Lymphocytes (%) (Auto) 24.0, Monocytes (%) (Auto) 9.1, Eosinophils (%) (Auto) 3.4H, Basophils (%) (Auto) 1.0, Erythrocyte Sedimentation Rate 6, Sodium Level 138, Potassium Level 3.9, Chloride Level 106, Carbon Dioxide Level 26, Anion Gap 6, Blood Urea Nitrogen 18, Creatinine 1.2, Estimat Glomerular Filtration Rate > 60, Glucose Level 137H, Hemoglobin A1c 6.4H, Calcium Level 8.8, Phosphorus Level 3.0, Magnesium Level 2.0, Total Bilirubin 0.3, Aspartate Amino Transf (AST/SGOT) 12L, Alanine Aminotransferase (ALT/SGPT) 14, Alkaline Phosphatase 64, Troponin I 0.000, Total Protein 7.2, Albumin 3.2L, Globulin 4.0 , Albumin/Globulin Ratio 0.8L Current Medications Medications (Trade) Dose Ordered Sig/Kristan Route PRN Reason Start Time Stop Time Status Last Admin Dose Admin Acetaminophen (Tylenol) 650 mg Q4H PRN ORAL Mild Pain/Temp > 100.5 05/02/18 01:00 06/01/18 00:59 Apixaban (Eliquis) 5 mg BID ORAL 05/02/18 18:00 06/01/18 17:59 05/03/18 08:22 Aspirin (ASA) 81 mg DAILY ORAL 05/02/18 09:00 06/01/18 08:59 05/03/18 08:22 Atorvastatin Calcium (Lipitor) 10 mg BEDTIME ORAL 05/02/18 21:00 06/01/18 20:59 05/02/18 21:54 Brimonidine Tartrate (Alphagan) 1 drop BID BOTH EYES 05/02/18 09:00 06/01/18 08:59 05/03/18 08:23 Dextrose (Dextrose 50%) 25 ml Q30M PRN IV Hypoglycemia 05/02/18 01:00 06/01/18 00:59 Dextrose (Dextrose 50%) 50 ml Q30M PRN IV Hypoglycemia 05/02/18 01:00 06/01/18 00:59 Dorzolamide/ Timolol (Cosopt) 1 drop TWICE A DAY BOTH EYES 05/02/18 09:00 06/01/18 08:59 05/03/18 08:24 Finasteride (Proscar) 5 mg DAILY ORAL 05/02/18 09:00 06/01/18 08:59 05/03/18 08:23 Insulin Aspart (NovoLOG) BEFORE MEALS AND HS SUBQ 05/02/18 06:30 06/01/18 06:29 05/03/18 06:34 Latanoprost (Xalatan) 1 drop QHS BOTH EYES 05/02/18 21:00 06/01/18 20:59 05/02/18 21:53 Metformin HCl (Glucophage) 500 mg TWICE A DAY ORAL 05/02/18 18:00 06/01/18 17:59 05/03/18 08:22 Morphine Sulfate (Morphine Sulfate) 2 mg Q6H PRN IVP Severe Breakthru Pain (>7) 05/02/18 01:00 05/09/18 00:59 05/03/18 08:24 Nitroglycerin (Ntg) 0.4 mg Q5M PRN SL Prn Chest Pain 05/02/18 01:00 06/01/18 00:59 Ondansetron HCl (Zofran) 4 mg Q6H PRN IVP Nausea & Vomiting 05/02/18 01:00 06/01/18 00:59 Tamsulosin HCl (Flomax) 0.4 mg BEDTIME ORAL 05/02/18 21:00 06/01/18 20:59 05/02/18 21:53 Subjective ROS Limited/Unobtainable: No Allergies: Coded Allergies: HYDROMORPHONE (Verified Adverse Reaction, Severe, "overwhelms him. can tolerate morphine", 03/01/14) HYDROCODONE (Verified Adverse Reaction, Intermediate, N/V, 10/08/15) Objective Last 24 Hour Vital Signs Date Time Temp Pulse Resp B/P (MAP) Pulse Ox O2 Delivery O2 Flow Rate FiO2 05/05/18 16:00 97.7 87 18 134/78 (96) 96 05/05/18 12:00 97.9 64 20 123/74 (90) 97 05/05/18 12:00 60 05/05/18 09:00 Room Air 05/05/18 08:00 74 05/05/18 08:00 97.9 70 20 119/70 (86) 98 05/05/18 04:00 64 05/05/18 04:00 98.2 65 18 112/66 (81) 96 05/05/18 00:00 98.0 63 20 116/73 (87) 97 05/05/18 00:00 67 05/04/18 21:00 Room Air 05/04/18 20:00 72 05/04/18 18:15 97.7 Intake and Output 05/04/18 05/05/18 19:00 07:00 Intake Total 450 ml 200 ml Output Total 525 ml Balance 450 ml -325 ml Intake Oral 450 ml 200 ml Output Urine Total 525 ml # Voids 4 2 # Bowel Movements 2 1 Current Medications Medications (Trade) Dose Ordered Sig/Kristan Route PRN Reason Start Time Stop Time Status Last Admin Dose Admin Acetaminophen (Tylenol) 650 mg Q4H PRN ORAL Mild Pain/Temp > 100.5 05/02/18 01:00 06/01/18 00:59 Apixaban (Eliquis) 5 mg BID ORAL 05/02/18 18:00 06/01/18 17:59 05/05/18 17:15 Aspirin (ASA) 81 mg DAILY ORAL 05/02/18 09:00 06/01/18 08:59 05/05/18 10:25 Atorvastatin Calcium (Lipitor) 10 mg BEDTIME ORAL 05/02/18 21:00 06/01/18 20:59 05/04/18 21:50 Brimonidine Tartrate (Alphagan) 1 drop BID BOTH EYES 05/02/18 09:00 06/01/18 08:59 05/05/18 17:15 Dextrose (Dextrose 50%) 25 ml Q30M PRN IV Hypoglycemia 05/02/18 01:00 06/01/18 00:59 Dextrose (Dextrose 50%) 50 ml Q30M PRN IV Hypoglycemia 05/02/18 01:00 06/01/18 00:59 Dorzolamide/ Timolol (Cosopt) 1 drop TWICE A DAY BOTH EYES 05/02/18 09:00 06/01/18 08:59 05/05/18 17:15 Finasteride (Proscar) 5 mg DAILY ORAL 05/02/18 09:00 06/01/18 08:59 05/05/18 10:25 Insulin Aspart (NovoLOG) BEFORE MEALS AND HS SUBQ 05/02/18 06:30 06/01/18 06:29 05/04/18 11:45 Latanoprost (Xalatan) 1 drop QHS BOTH EYES 05/02/18 21:00 06/01/18 20:59 05/04/18 21:50 Metformin HCl (Glucophage) 500 mg TWICE A DAY ORAL 05/02/18 18:00 06/01/18 17:59 05/05/18 17:15 Morphine Sulfate (Morphine Sulfate) 2 mg Q6H PRN IVP Severe Breakthru Pain (>7) 05/02/18 01:00 05/09/18 00:59 05/05/18 17:15 Nitroglycerin (Ntg) 0.4 mg Q5M PRN SL Prn Chest Pain 05/02/18 01:00 06/01/18 00:59 Ondansetron HCl (Zofran) 4 mg Q6H PRN IVP Nausea & Vomiting 05/02/18 01:00 06/01/18 00:59 Tamsulosin HCl (Flomax) 0.4 mg BEDTIME ORAL 05/02/18 21:00 06/01/18 20:59 05/04/18 21:50 Bakari Escalera MD May 05, 2018 17:56
[2018-05-05 20:00] VITALS: BP 111/60
[2018-05-05] MEDS: Latanoprost 0.005% Opth 2.5ml Soln BOTH EYES SCH (21:32)
[2018-05-05] MEDS: Tamsulosin 0.4mg cap ORAL SCH (21:32)
--- NOTE | 2018-05-05 23:49 | General Progress Note ---
Assessment/Plan Assessment/Plan cluster B personality disorder. Anxiety d/o Opioid dependence -the pt is refusing meds -the pt stated that "you guys want to use my mental health days" -The pt was provided ro/st -The pt is uncooperative and refusing to leave uncooperative with staff -The pt has numerous admission and is using the system Subjective Date patient seen: May 06, 2018 Neurologic/Psychiatric: Reports: anxiety, depressed Allergies: Coded Allergies: HYDROMORPHONE (Verified Adverse Reaction, Severe, "overwhelms him. can tolerate morphine", 03/01/14) HYDROCODONE (Verified Adverse Reaction, Intermediate, N/V, 10/08/15) Objective Last 24 Hour Vital Signs Date Time Temp Pulse Resp B/P (MAP) Pulse Ox O2 Delivery O2 Flow Rate FiO2 05/05/18 21:00 Room Air 05/05/18 20:00 97.9 70 20 111/60 (77) 96 05/05/18 20:00 85 05/05/18 17:45 97.7 05/05/18 16:00 97.7 87 18 134/78 (96) 96 05/05/18 16:00 108 05/05/18 12:00 97.9 64 20 123/74 (90) 97 05/05/18 12:00 60 05/05/18 09:00 Room Air 05/05/18 08:00 74 05/05/18 08:00 97.9 70 20 119/70 (86) 98 05/05/18 04:00 64 05/05/18 04:00 98.2 65 18 112/66 (81) 96 05/05/18 00:00 98.0 63 20 116/73 (87) 97 05/05/18 00:00 67 Intake and Output 05/04/18 05/05/18 19:00 07:00 Intake Total 450 ml 200 ml Output Total 525 ml Balance 450 ml -325 ml Intake Oral 450 ml 200 ml Output Urine Total 525 ml # Voids 4 2 # Bowel Movements 2 1 Height (Feet): 5 Height (Inches): 8.00 Weight (Pounds): 198 General Appearance: WD/WN, alert, confused Mica Gómez MD May 05, 2018 23:49
[2018-05-06] VITALS: BP 110/70
[2018-05-06] MEDS: Morphine Sulfate 2mg/ml Inj IVP PRN ×2 (05:23→11:43)
[2018-05-06 06:00] VITALS: BP 104/63
[2018-05-06] MEDS: NovoLOG Insulin Flexpen SUBQ SCH ×2 (06:30→11:30)
[2018-05-06 06:41] VITALS: BP 104/63
[2018-05-06 07:53] LABS: BASOPHILS % (AUTO) 1.1 % (0.0-2.0); EOSINOPHILS % (AUTO) 3.2 % (0.0-3.0); HEMATOCRIT 40.9 % (42.0-52.0); HEMOGLOBIN 13.6 G/DL (14.2-18.0); LYMPHOCYTES % (AUTO) 23.5 % (20.0-45.0); MEAN CORPUSCULAR VOLUME 83 FL (80-99); NEUTROPHILS % (AUTO) 62.3 % (45.0-75.0); PLATELET COUNT 145 K/UL (150-450); RED BLOOD COUNT 4.93 M/UL (4.70-6.10); RED CELL DISTRIBUTION WIDTH 15.9 % (11.6-14.8)
[2018-05-06 08:00] VITALS: BP 132/75
[2018-05-06 08:14] LABS: ANION GAP 9 mmol/L (5-15); BLOOD UREA NITROGEN 16 mg/dL (7-18); CALCIUM 9.1 MG/DL (8.5-10.1); CARBON DIOXIDE 24 MMOL/L (21-32); CHLORIDE 106 MMOL/L (98-107); CREATININE 1.1 MG/DL (0.55-1.30); SODIUM 139 MMOL/L (136-145)
[2018-05-06] MEDS: Aspirin Baby 81mg ORAL SCH (08:28)
[2018-05-06] MEDS: metFORMIN 500mg tab ORAL SCH (08:28)
[2018-05-06] MEDS: Eliquis 2.5mg tablet ORAL SCH (08:29)
[2018-05-06] MEDS: Cosopt Opth Soln 10 mL Btl BOTH EYES SCH (08:29)
[2018-05-06] MEDS: Brimonidine 0.2% Opth Sol BOTH EYES SCH (08:30)
--- NOTE | 2018-05-06 10:28 | Pulmonology Progress Note ---
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 Subjective ROS Limited/Unobtainable: No Constitutional: Reports: no symptoms HEENT: Repors: no symptoms Respiratory: Reports: no symptoms Allergies: Coded Allergies: HYDROMORPHONE (Verified Adverse Reaction, Severe, "overwhelms him. can tolerate morphine", 03/01/14) HYDROCODONE (Verified Adverse Reaction, Intermediate, N/V, 10/08/15) Objective Last 24 Hour Vital Signs Date Time Temp Pulse Resp B/P (MAP) Pulse Ox O2 Delivery O2 Flow Rate FiO2 05/06/18 09:00 Room Air 05/06/18 08:00 97.2 61 18 132/75 (94) 96 05/06/18 08:00 68 05/06/18 06:41 97.9 61 20 104/63 (77) 96 05/06/18 04:00 61 05/06/18 00:00 97.3 62 20 110/70 (83) 97 05/06/18 00:00 62 05/05/18 21:00 Room Air 05/05/18 20:00 97.9 70 20 111/60 (77) 96 05/05/18 20:00 85 05/05/18 17:45 97.7 05/05/18 16:00 97.7 87 18 134/78 (96) 96 05/05/18 16:00 108 05/05/18 12:00 97.9 64 20 123/74 (90) 97 05/05/18 12:00 60 Intake and Output 05/05/18 05/06/18 19:00 07:00 Intake Total 550 ml 300 ml Balance 550 ml 300 ml Intake Oral 550 ml 300 ml # Voids 4 3 # Bowel Movements 2 General Appearance: WD/WN HEENT: normocephalic, anicteric Respiratory/Chest: chest wall non-tender, lungs clear Cardiovascular: normal peripheral pulses, normal rate Abdomen: normal bowel sounds, soft, non tender Genitourinary: normal external genitalia Neurologic/Psychiatric: link trainer maintenance man II-XII grossly normal Laboratory Tests 05/06/18 07:20: White Blood Count 6.0, Red Blood Count 4.93, Hemoglobin 13.6L, Hematocrit 40.9L , Mean Corpuscular Volume 83, Mean Corpuscular Hemoglobin 27.6, Mean Corpuscular Hemoglobin Concent 33.3, Red Cell Distribution Width 15.9H, Platelet Count 145L, Mean Platelet Volume 11.2H, Neutrophils (%) (Auto) 62.3, Lymphocytes (%) (Auto) 23.5, Monocytes (%) (Auto) 10.0, Eosinophils (%) (Auto) 3.2H, Basophils (%) (Auto) 1.1, Sodium Level 139, Potassium Level 4.0, Chloride Level 106, Carbon Dioxide Level 24, Anion Gap 9, Blood Urea Nitrogen 16, Creatinine 1.1, Estimat Glomerular Filtration Rate > 60, Glucose Level 111H, Calcium Level 9.1 Current Medications Medications (Trade) Dose Ordered Sig/Kristan Route PRN Reason Start Time Stop Time Status Last Admin Dose Admin Acetaminophen (Tylenol) 650 mg Q4H PRN ORAL Mild Pain/Temp > 100.5 05/02/18 01:00 06/01/18 00:59 Apixaban (Eliquis) 5 mg BID ORAL 05/02/18 18:00 06/01/18 17:59 05/06/18 08:29 Aspirin (ASA) 81 mg DAILY ORAL 05/02/18 09:00 06/01/18 08:59 05/06/18 08:28 Atorvastatin Calcium (Lipitor) 10 mg BEDTIME ORAL 05/02/18 21:00 06/01/18 20:59 05/05/18 21:32 Brimonidine Tartrate (Alphagan) 1 drop BID BOTH EYES 05/02/18 09:00 06/01/18 08:59 05/06/18 08:30 Dextrose (Dextrose 50%) 25 ml Q30M PRN IV Hypoglycemia 05/02/18 01:00 06/01/18 00:59 Dextrose (Dextrose 50%) 50 ml Q30M PRN IV Hypoglycemia 05/02/18 01:00 06/01/18 00:59 Dorzolamide/ Timolol (Cosopt) 1 drop TWICE A DAY BOTH EYES 05/02/18 09:00 06/01/18 08:59 05/06/18 08:29 Finasteride (Proscar) 5 mg DAILY ORAL 05/02/18 09:00 06/01/18 08:59 05/06/18 08:29 Insulin Aspart (NovoLOG) BEFORE MEALS AND HS SUBQ 05/02/18 06:30 06/01/18 06:29 05/04/18 11:45 Latanoprost (Xalatan) 1 drop QHS BOTH EYES 05/02/18 21:00 06/01/18 20:59 05/05/18 21:32 Metformin HCl (Glucophage) 500 mg TWICE A DAY ORAL 05/02/18 18:00 06/01/18 17:59 05/06/18 08:28 Morphine Sulfate (Morphine Sulfate) 2 mg Q6H PRN IVP Severe Breakthru Pain (>7) 05/02/18 01:00 05/09/18 00:59 05/06/18 05:23 Nitroglycerin (Ntg) 0.4 mg Q5M PRN SL Prn Chest Pain 05/02/18 01:00 06/01/18 00:59 Ondansetron HCl (Zofran) 4 mg Q6H PRN IVP Nausea & Vomiting 05/02/18 01:00 06/01/18 00:59 Tamsulosin HCl (Flomax) 0.4 mg BEDTIME ORAL 05/02/18 21:00 06/01/18 20:59 05/05/18 21:32 Violet Schmid MD May 06, 2018 10:28
[2018-05-06 12:00] VITALS: BP 109/66
[2018-05-06 16:00] VITALS: BP 125/73
--- NOTE | 2018-05-07 13:12 | Discharge Summary ---
Discharge Summary Discharge Summary _ DATE OF ADMISSION: 05/02/2018 DATE OF DISCHARGE: 05/06/2018 REASON FOR ADMISSION: 63 years old male with past medical history of pulmonary embolism, status post pulmonary embolectomy, history of intermittent complete heart block status post pacemaker implantation, COPD, diabetes mellitus, presented to emergency department complaining of chest pain from the pacemaker site . Patient with frequent visits to ER for the same reason. The patient initially presented to [facility] and subsequently transferred to [facility] for insurance purposes. Patient was admitted with chest pain CONSULTANTS: dispute resolution analyst Dr. Zayas pulmonary Dr. Schmid psychiatrist [facility] COURSE: Patient admitted to telemetry floor. Cardiology consult was requested. Serial troponin were negative. Anticoagulation continued with Eliquis. Lipid panel revealed elevated triglycerides 165 and stable cholesterol and LDL. Statin was continued . Patient was counseled on low-fat low-salt cardiac diabetic diet. Blood sugar was managed with metformin and sliding scale of insulin as needed . Take Out Waitress followed. Serial troponin were negative EKG revealed no acute ischemic changes . Patient was ruled out for acute myocardial infarction. Patient had numerous admission for chest pain. Stress test was done at [facility] and was negative. Echocardiogram on this admission revealed ejection fraction 55%. No evidence of pericardial effusion. Right ventricular systolic pressure of 35 consistent with a mild pulmonary hypertension . Patient had a pacemaker implantation secondary to intermittent complete heart block. Pacemaker was interrogated at recent admission in [facility] and revealed normal functioning. Patient was counseled on compliance with medication regimen. Pain management was addressed as needed. Possibly costochondritis. Pain resolved. Glaucoma eyedrops were continued. Pulse oximetry was stable on room air. Psychiatrist followed . patient was refusing psychiatric medication. Patient was provided with reality orientation and supportive therapy. Patient was stable for discharge. FINAL DIAGNOSES: Atypical chest pain. Bradycardia, status post permanent pacemaker implantation Probably costochondritis Pulmonary embolism History of embolectomy for pulmonary embolism Permanent pacemaker due to intermittent complete heart block - normal functioning on recent interrogation Diabetes mellitus COPD Noncompliance Glaucoma Cluster B personality disorder Anxiety disorder Opioid dependency Hyperlipidemia DISCHARGE MEDICATIONS: See Medication Reconciliation list. DISCHARGE INSTRUCTIONS: Patient was discharged home . Follow up with primary care provider in one week. Reinforced compliance with medication regimen. I have been assigned to dictate discharge summary for this account. I was not involved in the patient's management. Angelica Prakash NP May 07, 2018 13:12
== END 2018-05-06 17:09 | disposition home or self-care (01) | DRG 203 ==
LOC: 2E 05-02
DX: M94.0 Chondrocostal junction syndrome [Tietze] (principal); F11.20 Opioid dependence, uncomplicated; R07.89 Other chest pain; Z86.711 Personal history of pulmonary embolism; E11.9 Type 2 diabetes mellitus without complications; J44.9 Chronic obstructive pulmonary disease, unspecified; Z91.19 Patient's noncompliance with other medical treatment and regimen; H40.9 Unspecified glaucoma; F60.89 Other specific personality disorders; F41.9 Anxiety disorder, unspecified; E78.5 Hyperlipidemia, unspecified; I25.10 Atherosclerotic heart disease of native coronary artery without angina pectoris; Z95.810 Presence of automatic (implantable) cardiac defibrillator; M51.36 Other intervertebral disc degeneration, lumbar region; F60.2 Antisocial personality disorder; Z79.01 Long term (current) use of anticoagulants; Z79.84 Long term (current) use of oral hypoglycemic drugs; Z86.718 Personal history of other venous thrombosis and embolism; R00.1 Bradycardia, unspecified
CPT/HCPCS: 36415; 80048; 80053; 80061; 82962; 83036; 83735; 84100; 84484; 85025; 85651; 87081; 93005; 93306; J1815

== ENCOUNTER 2019-03-15 13:55 | Inpatient (IN) | payer OTHER, MEDICAID ==
[~2019-03-15] VITALS: Ht 172.7 cm; Wt 88.9 kg
[~2019-03-15 13:55] MED LIST changes: +COSOPT PF EYE1 EAC1 OP; +LIPITOR80 MG ORAL; +METFORMIN HCL500 M1 ORAL; +PROSCAR5 MG ORAL; +TAMSULOSIN HCL0.4 MG ORAL; +TRAVATAN Z5 ML OP
--- NOTE | 2019-03-15 14:16 | Emergency Room Report ---
History of Present Illness General Chief Complaint: Chest Pain Source: Patient Present Illness HPI Patient is a 63-year-old male presents after 2 hours of increased chest discomfort. He reports having central chest discomfort. He reports is radiating to his neck. Onset 2 hours prior to arrival. He reports onset during rest. He reports having prior history of pulmonary embolism and thrombectomy. He additionally reports having some increased problems with his pacemaker since about 3 days ago. This was placed at [facility]. Patient reports taking Eliquis as well as Lipitor and metformin. He reports having some improvement with relaxation. He states he has been having some sore throat as well as some mild headache.He reports being allergic to contrast dye. Allergies: Coded Allergies: HYDROMORPHONE (Verified Adverse Reaction, Severe, "overwhelms him. can tolerate morphine", 03/01/14) HYDROCODONE (Verified Adverse Reaction, Intermediate, N/V, 10/08/15) Uncoded Allergies: CONTRAST DYE (Allergy, Unknown, 03/15/19) Patient History Past Medical History: see triage record Past Surgical History: other - thrombectomy Social History: Denies: smoking, alcohol use, drug use Reviewed Nursing Documentation: PMH: Agreed; PSxH: Agreed Nursing Documentation-PMH Past Medical History: No History, Except For Hx Cardiac Problems: Yes - midline incision for removal blood clot post PE Hx Hypertension: No Hx Pacemaker: Yes - 2018 Hx Asthma: No Hx Diabetes: Yes Hx Cancer: No Hx Gastrointestinal Problems: No Hx Dialysis: No Hx Neurological Problems: No Hx Cerebrovascular Accident: No Hx Seizures: No Review of Systems All Other Systems: negative except mentioned in HPI Physical Exam Vital Signs Date Time Temp Pulse Resp B/P (MAP) Pulse Ox O2 Delivery O2 Flow Rate FiO2 03/15/19 14:02 98.4 79 20 118/76 (90) 97 Room Air Sp02 EP Interpretation: reviewed, normal General Appearance: normal inspection, well appearing, no apparent distress, alert, GCS 15 Head: atraumatic ENT: normal ENT inspection, hearing grossly normal, normal voice, pharyngeal erythema Neck: normal inspection, full range of motion, supple, no bony tend Respiratory: normal inspection, lungs clear, normal breath sounds, no respiratory distress, no retraction, no wheezing Cardiovascular #1: regular rate, rhythm, no edema, other - sternotomy Gastrointestinal: normal inspection, normal bowel sounds, non tender, soft, no guarding, no hernia Genitourinary: no CVA tenderness Musculoskeletal: normal inspection, back normal, normal range of motion Neurologic: normal inspection, alert, responsive, speech normal Psychiatric: normal inspection, judgement/insight normal, mood/affect normal Medical Decision Making Diagnostic Impression: Primary Impression: Acute coronary syndrome Additional Impressions: CAD (coronary artery disease) DVT (deep venous thrombosis) ER Course Patient presented for chest pain. Differential diagnosis include was not limited to differential diagnosis included but was not limited to acute coronary syndrome, pulmonary embolism, pneumonia, aortic dissection, shingles, pneumothorax, aortic dissection, esophageal rupture, pericarditis. EKG showed normal sinus rhythm without acute ST or T wave changes. CXR showed no acute effusion or infiltrate. Patient appears to have chest pain which is concerning for possible ACS. Initial laboratory testing was noted to be a unremarkable with a negative troponin. Patient had previously had CT imaging with IV contrast at this facility however he does report some contrast allergy currently. CT will be deferred at this time. Dr. Rik Montes was contacted for inpatient management Laboratory Tests Test 03/15/19 15:00 White Blood Count 7.7 K/UL (4.8-10.8) Red Blood Count 4.60 M/UL (4.70-6.10) L Hemoglobin 13.3 G/DL (14.2-18.0) L Hematocrit 40.7 % (42.0-52.0) L Mean Corpuscular Volume 88 FL (80-99) Mean Corpuscular Hemoglobin 28.8 PG (27.0-31.0) Mean Corpuscular Hemoglobin Concent 32.6 G/DL (32.0-36.0) Red Cell Distribution Width 13.3 % (11.6-14.8) Platelet Count 192 K/UL (150-450) Mean Platelet Volume 9.8 FL (6.5-10.1) Neutrophils (%) (Auto) 69.1 % (45.0-75.0) Lymphocytes (%) (Auto) 18.8 % (20.0-45.0) L Monocytes (%) (Auto) 9.2 % (1.0-10.0) Eosinophils (%) (Auto) 1.8 % (0.0-3.0) Basophils (%) (Auto) 1.1 % (0.0-2.0) Prothrombin Time 10.6 SEC (9.30-11.50) Prothrombin Time INR 1.0 (0.9-1.1) PTT 30 SEC (23-33) D-Dimer 0.31 mg/L FEU (0.00-0.49) Sodium Level 139 MMOL/L (136-145) Potassium Level 4.3 MMOL/L (3.5-5.1) Chloride Level 105 MMOL/L (98-107) Carbon Dioxide Level 25 MMOL/L (21-32) Anion Gap 9 mmol/L (5-15) Blood Urea Nitrogen 18 mg/dL (7-18) Creatinine 1.2 MG/DL (0.55-1.30) Estimate Glomerular Filtration Rate > 60 mL/min (>60) Glucose Level 134 MG/DL (74-106) H Calcium Level 9.4 MG/DL (8.5-10.1) Total Bilirubin 0.6 MG/DL (0.2-1.0) Aspartate Amino Transferase (AST) 14 U/L (15-37) L Alanine Aminotransferase (ALT) 16 U/L (12-78) Alkaline Phosphatase 62 U/L (46-116) Total Creatine Kinase 73 U/L (26-308) Creatine Kinase MB 1.3 NG/ML (0.0-3.6) Creatine Kinase MB Relative Index 1.7 Troponin I 0.000 ng/mL (0.000-0.056) Pro-B-Type Natriuretic Peptide 57 pg/mL (0-125) Total Protein 7.4 G/DL (6.4-8.2) Albumin 3.7 G/DL (3.4-5.0) Globulin 3.7 g/dL Albumin/Globulin Ratio 1.0 (1.0-2.7) Lipase 51 U/L (73-393) L Urine Color Pale yellow Urine Appearance Slightly cloudy Urine pH 7 (4.5-8.0) Urine Specific Quinn 1.010 (1.005-1.035) Urine Protein Negative (NEGATIVE) Urine Glucose (UA) Negative (NEGATIVE) Urine Ketones Negative (NEGATIVE) Urine Blood Negative (NEGATIVE) Urine Nitrite Negative (NEGATIVE) Urine Bilirubin Negative (NEGATIVE) Urine Urobilinogen Normal MG/DL (0.0-1.0) Urine Leukocyte Esterase 2+ (NEGATIVE) H Urine RBC 0-2 /HPF (0 - 0) H Urine WBC 60-80 /HPF (0 - 0) H Urine Squamous Epithelial Cells Occasional /LPF Urine Bacteria Moderate /HPF (NONE) H Urine Opiates Screen Negative (NEGATIVE) Urine Barbiturates Screen Negative (NEGATIVE) Phencyclidine (PCP) Screen Negative (NEGATIVE) Urine Amphetamines Screen Negative (NEGATIVE) Urine Benzodiazepines Screen Negative (NEGATIVE) Urine Cocaine Screen Negative (NEGATIVE) Urine Marijuana (THC) Screen Negative (NEGATIVE) Phosphorus Level Magnesium Level Test 03/17/19 05:32 White Blood Count 7.0 K/UL (4.8-10.8) Red Blood Count 4.46 M/UL (4.70-6.10) L Hemoglobin 13.0 G/DL (14.2-18.0) L Hematocrit 39.3 % (42.0-52.0) L Mean Corpuscular Volume 88 FL (80-99) Mean Corpuscular Hemoglobin 29.0 PG (27.0-31.0) Mean Corpuscular Hemoglobin Concent 33.0 G/DL (32.0-36.0) Red Cell Distribution Width 13.2 % (11.6-14.8) Platelet Count 179 K/UL (150-450) Mean Platelet Volume 9.2 FL (6.5-10.1) Neutrophils (%) (Auto) 65.7 % (45.0-75.0) Lymphocytes (%) (Auto) 21.6 % (20.0-45.0) Monocytes (%) (Auto) 8.6 % (1.0-10.0) Eosinophils (%) (Auto) 3.5 % (0.0-3.0) H Basophils (%) (Auto) 0.6 % (0.0-2.0) Sodium Level 140 MMOL/L (136-145) Potassium Level 3.8 MMOL/L (3.5-5.1) Chloride Level 107 MMOL/L (98-107) Carbon Dioxide Level 25 MMOL/L (21-32) Anion Gap 8 mmol/L (5-15) Blood Urea Nitrogen 14 mg/dL (7-18) Creatinine 1.2 MG/DL (0.55-1.30) Estimate Glomerular Filtration Rate > 60 mL/min (>60) Glucose Level 116 MG/DL (74-106) H Hemoglobin A1c 7.2 % (4.3-6.0) H Uric Acid 5.2 MG/DL (2.6-7.2) Calcium Level 9.1 MG/DL (8.5-10.1) Triglycerides Level 154 MG/DL (30-150) H Cholesterol Level 166 MG/DL (< 200) LDL Cholesterol 89 mg/dL (<100) HDL Cholesterol 36 MG/DL (40-60) L Cholesterol/HDL Ratio 4.6 (3.3-4.4) H Thyroid Stimulating Hormone (TSH) 2.689 uiU/mL (0.358-3.740) Microbiology Date/Time Source Procedure Growth Status EKG Diagnostic Results Rate: normal - 68 Rhythm: NSR ST Segments: no acute changes Last Vital Signs Date Time Temp Pulse Resp B/P (MAP) Pulse Ox O2 Delivery O2 Flow Rate FiO2 03/15/19 14:02 98.4 79 20 118/76 (90) 97 Room Air Status: unchanged Disposition: ADMITTED INPATIENT Condition: Stable Rogelio King MD Mar 15, 2019 14:16
--- NOTE | 2019-03-15 14:18 | NUR ---
ED Nurse Note: Pt walked in from home c/o chest pain x2hrs ago. Pt aaox4, room air, no respiratory distress noted. States he has left chest pacemaker. Placed on principal statistical scientist. Pt was seen by SHASHI.
[2019-03-15] MEDS ORDERED: Aspirin Baby 81mg ORAL ONE (14:30)
--- NOTE | 2019-03-15 14:30 | NUR ---
ED Nurse Note: xray at bedside
[2019-03-15 14:41] VITALS: BP 106/72
--- NOTE | 2019-03-15 15:08 | NUR ---
ED Nurse Note: Labs drawn and sent down.
[2019-03-15 15:30] LABS: BASOPHILS % (AUTO) 1.1 % (0.0-2.0); EOSINOPHILS % (AUTO) 1.8 % (0.0-3.0); HEMATOCRIT 40.7 % (42.0-52.0); HEMOGLOBIN 13.3 G/DL (14.2-18.0); LYMPHOCYTES % (AUTO) 18.8 % (20.0-45.0); MEAN CORPUSCULAR VOLUME 88 FL (80-99); MONOCYTES % (AUTO) 9.2 % (1.0-10.0); NEUTROPHILS % (AUTO) 69.1 % (45.0-75.0); PLATELET COUNT 192 K/UL (150-450); RED CELL DISTRIBUTION WIDTH 13.3 % (11.6-14.8); WHITE BLOOD COUNT 7.7 K/UL (4.8-10.8)
[2019-03-15] MEDS ORDERED: Nitroglycerin Subl 0.4mg tab SL PRN ×2 (15:30→22:30)
[2019-03-15 15:36] VITALS: BP 101/62
[2019-03-15] MEDS ORDERED: Morphine Sulfate 2mg/ml Inj(IV/IM USE ONLY) IVP ONE (15:45)
--- NOTE | 2019-03-15 16:06 | NUR ---
ED Nurse Note: ERMD at bedside.
[2019-03-15 16:09] LABS: ANION GAP 9 mmol/L (5-15); BLOOD UREA NITROGEN 18 mg/dL (7-18); CALCIUM 9.4 MG/DL (8.5-10.1); CARBON DIOXIDE 25 MMOL/L (21-32); CHLORIDE 105 MMOL/L (98-107); CREATININE 1.2 MG/DL (0.55-1.30); POTASSIUM 4.3 MMOL/L (3.5-5.1); SODIUM 139 MMOL/L (136-145)
[2019-03-15 16:22] LABS: ALANINE AMINOTRANSFERASE 16 U/L (12-78); ALBUMIN 3.7 G/DL (3.4-5.0); ALKALINE PHOSPHATASE 62 U/L (46-116); ASPARTATE AMINO TRANSFERASE 14 U/L (15-37); BILIRUBIN,TOTAL 0.6 MG/DL (0.2-1.0); CKMB 1.3 NG/ML (0.0-3.6); CREATINE KINASE 73 U/L (26-308)
[2019-03-15 16:47] LABS: APPEARANCE,URINE SLIGHTLY CLOUDY; BILIRUBIN, URINE NEGATIVE (NEGATIVE); COLOR,URINE PALE YELLOW; GLUCOSE, URINE (UA) NEGATIVE (NEGATIVE); KETONES,URINE NEGATIVE (NEGATIVE); LEUKOCYTE ESTERASE ,URINE 2+ (NEGATIVE); NITRITE,URINE NEGATIVE (NEGATIVE); PH,URINE 7 (4.5-8.0); PROTEIN,URINE NEGATIVE (NEGATIVE); UROBILINOGEN,URINE NORMAL MG/DL (0.0-1.0)
[2019-03-15 16:51] VITALS: BP 105/68
--- NOTE | 2019-03-15 17:05 | NUR ---
ED Nurse Note: Report given to Triston RN via telephone.
[2019-03-15 17:20] VITALS: BP 122/68
--- NOTE | 2019-03-15 17:20 | NUR ---
TRANSFER TO FLOOR: Patient transferred to telemetry room 205-2 as ordered, per Dr Kruger. Report given to KOREY Goldstein. Belongings list inventoried with receiving nurse and patient signed. Patient was transferred by myself and land survey technician; ACLS protocol. In stable condition.
--- NOTE | 2019-03-15 17:20 | NUR ---
NURSE NOTES: Pt transferred from ED via gurney with RN and distribution tech. AOX4 and able to walk steady without any device or help. Received report from Eli NAIR from ED. cardiac monitor applied. c/o 09/25 chest pain. Per patient, Morphine worked for his chest pain but 2mg is not enough. Dr. Kruger paged for new adm orders.Bed side rails x2 up for safety. Call light within easy reach. Will continue to plan of care.
--- NOTE | 2019-03-15 18:20 | NUR ---
NURSE NOTES: Dr. Soto(on-call) came and saw the patient.
--- NOTE | 2019-03-15 19:32 | NUR ---
HAND-OFF: Report given to Jael NAIR.Pt remains stable.
--- NOTE | 2019-03-15 19:46 | NUR ---
NURSE NOTES: Received report from KOREY Harris. Patient is awake lying semi-barraza's; resting comfortably. No signs of acute distress noted; complains of pain. AOx4; able to make needs known. Ambulates with some supervision. Checked IV site; patent and flushed. No erythema, bleeding, or infiltration noted. Bed at lowest position, brakes on, siderails up x2. Call light within reach. Will continue to monitor.
[2019-03-15 20:00] VITALS: BP 113/63
--- NOTE | 2019-03-15 20:17 | General Progress Note ---
Progress Note Progress Note Discussed with ED attending, did not receive signout for patient's admission. Per ED attending, Dr. King, patient admitted under wrong physician, not Dr. Kruger's patient. Order to be changed. Corazon Soto M.D. Mar 15, 2019 20:17
--- NOTE | 2019-03-15 21:57 | NUR ---
NURSE NOTES: Called Dr. Kruger's exchange for admission orders. Awaiting callback.
--- NOTE | 2019-03-15 22:00 | NUR ---
NURSE NOTES: Received call from Dr. Cooper. Per Dr. Cooper, he will put admission orders in. Addendum: 03/16/19 at 0307 by HALEY RODRIGUEZ RN RN Per Dr. Cooper, patient is under Dr. Montes and not Dr. Kruger.
--- NOTE | 2019-03-15 22:17 | NUR ---
NURSE NOTES: Called Dr. Montes for admission orders. Received new orders. Noted and carried out.
[2019-03-15] MEDS: Morphine Sulfate 2mg/ml Inj(IV/IM USE ONLY) IVP PRN (22:52)
[2019-03-16] VITALS: BP 111/63
[2019-03-16] MEDS: Morphine Sulfate 2mg/ml Inj(IV/IM USE ONLY) IVP PRN ×4 (03:02→22:41)
--- NOTE | 2019-03-16 03:08 | NUR ---
NURSE NOTES: Patient complains of pain. Morphine 2mg IV administered as ordered. No signs of acute distress at this time.
[2019-03-16 04:00] VITALS: BP 118/64
[2019-03-16] MEDS: NovoLOG Insulin Flexpen SUBQ SCH ×4 (06:20→21:00)
--- NOTE | 2019-03-16 07:15 | NUR ---
NURSE NOTES: Received report from Jael NAIR. Alert and oriented x4. No c/o pain. IV site intact and asymptomatic. Sinus rhythm noted on monitor. No acute distress noted. Will continue to plan of care.
--- NOTE | 2019-03-16 07:15 | NUR ---
HAND-OFF: Report given to KOREY Harris. Patient is asleep lying semi-barraza's; resting comfortably. In stable condition.
[2019-03-16 07:59] LABS: BASOPHILS % (AUTO) 0.8 % (0.0-2.0); EOSINOPHILS % (AUTO) 3.6 % (0.0-3.0); HEMATOCRIT 37.8 % (42.0-52.0); HEMOGLOBIN 12.3 G/DL (14.2-18.0); LYMPHOCYTES % (AUTO) 25.1 % (20.0-45.0); MEAN CORPUSCULAR VOLUME 88 FL (80-99); MONOCYTES % (AUTO) 10.3 % (1.0-10.0); NEUTROPHILS % (AUTO) 60.2 % (45.0-75.0); PLATELET COUNT 163 K/UL (150-450); RED BLOOD COUNT 4.28 M/UL (4.70-6.10); RED CELL DISTRIBUTION WIDTH 13.5 % (11.6-14.8)
[2019-03-16 08:00] VITALS: BP 115/66
[2019-03-16 08:17] LABS: ALANINE AMINOTRANSFERASE 14 U/L (12-78); ALBUMIN 3.2 G/DL (3.4-5.0); ALKALINE PHOSPHATASE 56 U/L (46-116); ANION GAP 9 mmol/L (5-15); ASPARTATE AMINO TRANSFERASE 10 U/L (15-37); BILIRUBIN,TOTAL 0.4 MG/DL (0.2-1.0); BLOOD UREA NITROGEN 19 mg/dL (7-18); CALCIUM 8.6 MG/DL (8.5-10.1); CARBON DIOXIDE 25 MMOL/L (21-32); CHLORIDE 107 MMOL/L (98-107); CREATININE 1.2 MG/DL (0.55-1.30); PHOSPHORUS 3.4 MG/DL (2.5-4.9); POTASSIUM 3.9 MMOL/L (3.5-5.1); SODIUM 141 MMOL/L (136-145)
[2019-03-16] MEDS: Brimonidine 0.2% Opth Sol BOTH EYES SCH ×3 (08:31→17:28)
[2019-03-16] MEDS: Eliquis 5mg tablet ORAL SCH ×2 (08:32→17:28)
[2019-03-16] MEDS: metFORMIN 500mg tab ORAL SCH ×2 (08:32→17:28)
--- NOTE | 2019-03-16 09:35 | Consultation ---
History of Present Illness General Date patient seen: Mar 16, 2019 Time patient seen: 08:30 Chief Complaint: Chest Pain Referring physician: dr Montes Reason for Consultation: hospitalist Present Illness HPI 63-year-old male with PMH of pulmonary embolism, s/p thrombectomy, DM, recently placed in January 2018 pacemaker, presented after 2 hours of increased central chest pain with radiaition to his neck. Patient reported pain for 3 days, which became progressively worse. He also experienced symptoms like his heart was racing and was unable to stop. Patient had pacemaker placed in [facility] in January 2018 due to bradycardia and heart block m, not sure about details. Patient last seen commercial sheet metal foreman about 6 months ago, when his pacemaker was checked. Patient had stress test few years ago, which apparently was stable. No associated SOB. No fever or chills. No blackouts, no seizures. Patient reported allergy to contrast dye with resulting angioedema and throat swelling. Patient usually gets premedicated with steroids prior to procedure if he needs contrast dye. Laboratory workup revealed negative troponin, ECG revealed NSR, no acute ischemic changes. No leukocytosis, stable HHH. Patient received ASA and was subsequently admitted to telemetry floor for further management to r/o ACS. Allergies: Coded Allergies: HYDROMORPHONE (Verified Adverse Reaction, Severe, "overwhelms him. can tolerate morphine", 03/01/14) HYDROCODONE (Verified Adverse Reaction, Intermediate, N/V, 10/08/15) Uncoded Allergies: CONTRAST DYE (Allergy, Unknown, 03/15/19) Medication History Scheduled Apixaban (Eliquis), 5 MG PO BID, (Reported) Atorvastatin (Lipitor), 10 MG ORAL DAILY, (Reported) Atorvastatin Calcium* (Lipitor*), 10 MG ORAL BEDTIME, (Reported) Brimonidine Tartrate* (Alphagan*), 1 DROP BOTH EYES TID, (Reported) Dorzolamide HCl/Timolol Maleat (Dorzolamide-Timolol Eye Drops), 1 DROP BOTH EYES TWICE A DAY, (Reported) Dorzolamide/Timolol/Pf (Cosopt Pf Eye Drops), 1 EACH OP BID, (Reported) Finasteride* (Proscar*), 5 MG ORAL DAILY, (Reported) Hydrocodone Bit/Acetaminophen 10-325* (Hydrocodon-Acetaminophn 10-325*), 1 TAB ORAL Q6H, (Reported) Metformin Hcl* (Metformin Hcl*), 500 MG ORAL TWICE A DAY, (Reported) Tamsulosin Hcl (Tamsulosin Hcl*), 0.4 MG ORAL BEDTIME, (Reported) Travoprost (Benzalkonium) (Travatan 0.004% Eye Drop), 1 DROP BOTH EYES BEDTIME, (Reported) Patient History Healthcare decision maker Resuscitation status Full Code Advanced Directive on File Review of Systems Constitutional: Reports: weakness Eye: Reports: other - glaucoma, s/sp surgery x 2 Respiratory: Reports: no symptoms Cardiovascular: Reports: see HPI Gastrointestinal: Reports: constipation Genitourinary: Reports: no symptoms Musculoskeletal: Reports: other - DDD Skin: Reports: no symptoms Psychiatric: Reports: no symptoms Neurological: Reports: no symptoms Endocrine: Reports: other - diabetes Hematologic/Lymphatic: Reports: other - allergy to contrast dye with angioedema and throat swelling Physical Exam General Appearance: WD/WN, no apparent distress, alert Lines, tubes and drains: peripheral HEENT: normocephalic, atraumatic, anicteric, mucous membranes moist Neck: non-tender, supple, normal inspection Respiratory/Chest: chest wall non-tender, lungs clear, no respiratory distress , no accessory muscle use Cardiovascular/Chest: normal peripheral pulses, normal rate, regular rhythm, no JVD Abdomen: normal bowel sounds, non tender, soft Extremities: normal range of motion, non-tender, no calf tenderness, normal capillary refill Skin Exam: normal pigmentation, warm/dry, other - healed vertical scar anterior chest Neurologic: study specialist II-XII grossly normal, no motor/sensory deficits, alert, oriented x 3, responsive, normal mood/affect Musculoskeletal: normal muscle bulk Last 24 Hour Vital Signs Date Time Temp Pulse Resp B/P (MAP) Pulse Ox O2 Delivery O2 Flow Rate FiO2 03/16/19 09:00 Room Air 03/16/19 08:00 97.7 61 20 115/66 (82) 97 03/16/19 04:00 97.4 62 18 118/64 (82) 96 03/16/19 04:00 61 03/16/19 00:00 97.5 65 18 111/63 (79) 98 03/16/19 00:00 64 03/15/19 21:00 Room Air 03/15/19 20:00 97.2 67 18 113/63 (80) 97 03/15/19 20:00 68 03/15/19 17:57 Room Air 03/15/19 17:49 98.2 60 18 101/69 99 Room Air 03/15/19 17:23 66 03/15/19 17:20 98.0 71 17 122/68 (86) 99 03/15/19 16:51 98.2 60 20 105/68 100 Room Air 03/15/19 15:36 98.4 64 20 101/62 100 Room Air 03/15/19 15:24 107/67 03/15/19 14:41 79 20 Room Air 03/15/19 14:41 98.4 68 20 106/72 100 Room Air 03/15/19 14:02 98.4 79 20 118/76 (90) 97 Room Air Intake and Output 03/15/19 03/16/19 19:00 07:00 Intake Total 1000 ml 350 ml Output Total 250 ml 600 ml Balance 750 ml -250 ml Intake Oral 350 ml IV Total 1000 ml Output Urine Total 250 ml 600 ml # Voids 1 Laboratory Tests Test 03/15/19 15:00 03/15/19 16:30 03/16/19 06:40 White Blood Count 7.7 K/UL (4.8-10.8) 6.0 K/UL (4.8-10.8) Red Blood Count 4.60 M/UL (4.70-6.10) L 4.28 M/UL (4.70-6.10) L Hemoglobin 13.3 G/DL (14.2-18.0) L 12.3 G/DL (14.2-18.0) L Hematocrit 40.7 % (42.0-52.0) L 37.8 % (42.0-52.0) L Mean Corpuscular Volume 88 FL (80-99) 88 FL (80-99) Mean Corpuscular Hemoglobin 28.8 PG (27.0-31.0) 28.8 PG (27.0-31.0) Mean Corpuscular Hemoglobin Concent 32.6 G/DL (32.0-36.0) 32.6 G/DL (32.0-36.0) Red Cell Distribution Width 13.3 % (11.6-14.8) 13.5 % (11.6-14.8) Platelet Count 192 K/UL (150-450) 163 K/UL (150-450) Mean Platelet Volume 9.8 FL (6.5-10.1) 8.9 FL (6.5-10.1) Neutrophils (%) (Auto) 69.1 % (45.0-75.0) 60.2 % (45.0-75.0) Lymphocytes (%) (Auto) 18.8 % (20.0-45.0) L 25.1 % (20.0-45.0) Monocytes (%) (Auto) 9.2 % (1.0-10.0) 10.3 % (1.0-10.0) H Eosinophils (%) (Auto) 1.8 % (0.0-3.0) 3.6 % (0.0-3.0) H Basophils (%) (Auto) 1.1 % (0.0-2.0) 0.8 % (0.0-2.0) Prothrombin Time 10.6 SEC (9.30-11.50) Prothromb Time International Ratio 1.0 (0.9-1.1) Activated Partial Thromboplast Time 30 SEC (23-33) D-Dimer 0.31 mg/L FEU (0.00-0.49) Sodium Level 139 MMOL/L (136-145) 141 MMOL/L (136-145) Potassium Level 4.3 MMOL/L (3.5-5.1) 3.9 MMOL/L (3.5-5.1) Chloride Level 105 MMOL/L (98-107) 107 MMOL/L (98-107) Carbon Dioxide Level 25 MMOL/L (21-32) 25 MMOL/L (21-32) Anion Gap 9 mmol/L (5-15) 9 mmol/L (5-15) Blood Urea Nitrogen 18 mg/dL (7-18) 19 mg/dL (7-18) H Creatinine 1.2 MG/DL (0.55-1.30) 1.2 MG/DL (0.55-1.30) Estimat Glomerular Filtration Rate > 60 mL/min (>60) > 60 mL/min (>60) Glucose Level 134 MG/DL (74-106) H 169 MG/DL (74-106) H Calcium Level 9.4 MG/DL (8.5-10.1) 8.6 MG/DL (8.5-10.1) Total Bilirubin 0.6 MG/DL (0.2-1.0) 0.4 MG/DL (0.2-1.0) Aspartate Amino Transf (AST/SGOT) 14 U/L (15-37) L 10 U/L (15-37) L Alanine Aminotransferase (ALT/SGPT) 16 U/L (12-78) 14 U/L (12-78) Alkaline Phosphatase 62 U/L (46-116) 56 U/L (46-116) Total Creatine Kinase 73 U/L (26-308) Creatine Kinase MB 1.3 NG/ML (0.0-3.6) Creatine Kinase MB Relative Index 1.7 Troponin I 0.000 ng/mL (0.000-0.056) 0.000 ng/mL (0.000-0.056) Pro-B-Type Natriuretic Peptide 57 pg/mL (0-125) Total Protein 7.4 G/DL (6.4-8.2) 6.4 G/DL (6.4-8.2) Albumin 3.7 G/DL (3.4-5.0) 3.2 G/DL (3.4-5.0) L Globulin 3.7 g/dL 3.2 g/dL Albumin/Globulin Ratio 1.0 (1.0-2.7) 1.0 (1.0-2.7) Lipase 51 U/L (73-393) L Urine Color Pale yellow Urine Appearance Slightly cloudy Urine pH 7 (4.5-8.0) Urine Specific Sharps 1.010 (1.005-1.035) Urine Protein Negative (NEGATIVE) Urine Glucose (UA) Negative (NEGATIVE) Urine Ketones Negative (NEGATIVE) Urine Blood Negative (NEGATIVE) Urine Nitrite Negative (NEGATIVE) Urine Bilirubin Negative (NEGATIVE) Urine Urobilinogen Normal MG/DL (0.0-1.0) Urine Leukocyte Esterase 2+ (NEGATIVE) H Urine RBC 0-2 /HPF (0 - 0) H Urine WBC 60-80 /HPF (0 - 0) H Urine Squamous Epithelial Cells Occasional /LPF Urine Bacteria Moderate /HPF (NONE) H Urine Opiates Screen Negative (NEGATIVE) Urine Barbiturates Screen Negative (NEGATIVE) Phencyclidine (PCP) Screen Negative (NEGATIVE) Urine Amphetamines Screen Negative (NEGATIVE) Urine Benzodiazepines Screen Negative (NEGATIVE) Urine Cocaine Screen Negative (NEGATIVE) Urine Marijuana (THC) Screen Negative (NEGATIVE) Phosphorus Level 3.4 MG/DL (2.5-4.9) Magnesium Level 2.0 MG/DL (1.8-2.4) Microbiology Date/Time Source Procedure Growth Status 03/15/19 15:20 Nasal Nares - Final Complete 03/15/19 15:20 Nasal Nares - Final Complete 03/15/19 16:30 Urine,Clean Catch Urine Culture - Preliminary NO GROWTH Resulted Height (Feet): 5 Height (Inches): 8.00 Weight (Pounds): 196 Medications Current Medications Medications (Trade) Dose Ordered Sig/Kristan Route PRN Reason Start Time Stop Time Status Last Admin Dose Admin Apixaban (Eliquis) 5 mg BID ORAL 03/16/19 09:00 04/15/19 08:59 03/16/19 08:32 Atorvastatin Calcium (Lipitor) 10 mg BEDTIME ORAL 03/16/19 21:00 04/15/19 20:59 Brimonidine Tartrate (Alphagan) 1 drop TID BOTH EYES 03/16/19 09:00 04/15/19 08:59 03/16/19 08:31 Dextrose (Dextrose 50%) 25 ml Q30M PRN IV Hypoglycemia 03/15/19 22:30 04/14/19 22:29 Dextrose (Dextrose 50%) 50 ml Q30M PRN IV Hypoglycemia 03/15/19 22:30 04/14/19 22:29 Finasteride (Proscar) 5 mg DAILY ORAL 03/16/19 09:00 04/15/19 08:59 03/16/19 08:32 Insulin Aspart (NovoLOG) BEFORE MEALS AND HS SUBQ 03/16/19 06:30 04/15/19 06:29 03/16/19 06:20 Latanoprost (Xalatan) 1 drop BEDTIME BOTH EYES 03/16/19 21:00 04/15/19 20:59 Metformin HCl (Glucophage) 500 mg TWICE A DAY ORAL 03/16/19 09:00 04/15/19 08:59 03/16/19 08:32 Morphine Sulfate (Morphine Sulfate) 2 mg Q4H PRN IVP Severe Pain (Pain Scale 7-10) 03/15/19 22:30 03/22/19 22:29 03/16/19 08:40 Nitroglycerin (Ntg) 0.4 mg Q5M PRN SL Prn Chest Pain 03/15/19 22:30 04/14/19 22:29 Non-Formulary Medication (Non-Formulary Med) 1 ea BID BOTH EYES 03/16/19 09:00 04/15/19 08:59 UNV Tamsulosin HCl (Flomax) 0.4 mg BEDTIME ORAL 03/16/19 21:00 04/15/19 20:59 Assessment/Plan Assessment/Plan: ASSESSMENT CP r/o ACS palpitations s/p pacemaker implantation (January2018), due to heart block ( last checked about 6 months ago) hx of PE , on a/coagulation therapy s/p IVC filter 2012 ? CAD DM HLD pyuria DDD glaucoma PLAN OF CARE tele serial troponin ECHO cardio eval pending probably will need stress test/done yrs ago as pw\\er pt pacemaker interrogation - per cardio on Eliquis, no signs of bleeding add ASA for now, continue statin, check lipid panel pain management Nitro prn BS management, check HgA1 UA with pyuria, no urinary complaints, f/up with UCX, hold on abx for now case discussed and evaluated by supervising physician Angelica Prakash NP Mar 16, 2019 09:35
[2019-03-16 12:00] VITALS: BP 124/52
--- NOTE | 2019-03-16 12:47 | Consultation ---
Consult Note Consult Note Cardiology for Dr. Askew Full consult dictated [id number] Clara Mackenzie MD Mar 16, 2019 12:46
--- NOTE | 2019-03-16 14:21 | History & Physical ---
History and Physical History & Physicial Dictated for Int Med-Dr Montes [id number] Charbel Serrato MD Mar 16, 2019 14:21
[2019-03-16 16:00] VITALS: BP 100/59
[2019-03-16] MEDS: Cosopt Opth Soln 10 mL Btl BOTH EYES SCH (17:28)
--- NOTE | 2019-03-16 17:45 | History and Physical Report ---
DATE OF ADMISSION: 03/15/2019 CHIEF COMPLAINT: The patient is a 63-year-old male, who presents with a chief complaint of chest pain. HISTORY OF PRESENT ILLNESS: Began yesterday, the patient began to experience chest pain at rest. The patient states he was talking to some friends. Chest pain radiates to the left neck. The patient denies radiation to the shoulder or to the jaw. The patient presented to [place] emergency room. The patient was admitted with chest pain to rule out acute coronary syndrome. REVIEW OF SYSTEMS: CONSTITUTIONAL: The patient denies weight loss or gain. The patient denies fevers or chills. HEENT: The patient denies ear or throat pain. The patient's headache. CARDIOVASCULAR: The patient complains of chest pain as above. The patient denies palpitations. ABDOMEN: The patient denies nausea, vomiting, diarrhea, or constipation. GENITOURINARY: The patient denies dysuria or increased frequency of urination. NEUROMUSCULAR: The patient denies seizures or generalized weakness. PAST MEDICAL HISTORY: Significant for: 1. Bilateral pulmonary embolism in 2012, currently on Eliquis. 2. Glaucoma of both eyes. 3. Diabetes type 2. 4. Hypercholesterolemia 5. Bradycardia. PAST SURGICAL HISTORY: Significant for: 1. Pacemaker implantation in January 2018 at [facility]. 2. IVC filter placement. 3. Pulmonary embolectomy secondary to pulmonary embolism as above. 4. Multiple eye surgeries. CURRENT MEDICATIONS: 1. Eliquis 5 mg one tablet p.o. twice daily. 2. Atorvastatin 10 mg p.o. daily. 3. Alphagan one drop to both eyes three times daily. 4. Dorzolamide-timolol one drop to both eyes twice daily. 5. Cosopt one drop to both eyes twice daily. 6. Finasteride 5 mg p.o. daily. 7. Sullivan 10/325 mg one tablet p.o. q.6 h. p.r.n. 8. Metformin 500 mg p.o. twice daily. 9. Tamsulosin 0.4 mg p.o. at bedtime. 10. Travatan one drop to both eyes at bedtime. ALLERGIES: 1. Dilaudid. 2. Iodine contrast dye. SOCIAL HISTORY: The patient lives alone and is disabled. The patient denies tobacco or alcohol use. PHYSICAL EXAMINATION: VITAL SIGNS: Temperature 97.5, respirations 18, pulse 61 to 64, blood pressure 111 to 118 over 62 to 64. GENERAL: The patient is well-developed and well-nourished male, in no apparent distress. HEENT: Eyes, pupils are equal and responsive to light and accommodation. Extraocular movements are intact. NECK: Supple without lymphadenopathy. CHEST: Lungs are clear to auscultation bilaterally without wheezes or rales. CARDIOVASCULAR: Regular rate. S1 and S2 normal without murmurs, rubs, or gallops. ABDOMEN: Soft, nontender, and nondistended. Positive bowel sounds. No evidence of hepatosplenomegaly. Currently, no rebound or guarding noted. EXTREMITIES: Negative for clubbing, cyanosis, or edema. RECTAL/GENITAL: Not performed. NEUROLOGIC: Cranial nerves II through XII are grossly intact without focal deficits. Motor strength is 5/5 bilaterally. Deep tendon reflexes are 2+ plantar. LABORATORY STUDIES: WBC 7.7, hemoglobin 13.3, hematocrit 40.7, platelets 192,000. Sodium 139, potassium 4.2, chloride 105, CO2 25, BUN 18, creatinine 1.2, glucose 134. Troponin 0.0. Urinalysis showed 2+ leukocyte esterase with wbc's. An EKG demonstrated normal sinus rhythm approximately 60 beats per minute. There are no acute ST or Q-waves noted. ASSESSMENT: This is a 63-year-old male. 1. Chest pain. 2. Diabetes type 2. 3. Pulmonary embolism, history. 4. Glaucoma. 5. Hypercholesterolemia. 6. Bradycardia. TREATMENT: 1. Chest pain. A Cardiology consultation has been obtained with Dr. Marco Askew. The patient was seen by Dr. Zayas in the past, however he would like to see Dr. Askew this hospitalization. 2. Diabetes type 2. Continue metformin as above. A NovoLog sliding scale has been instituted. 3. Glaucoma. Continue eye drops as above. 4. Hypercholesterolemia. Continue Lipitor as above. 5. Bradycardia. The patient is status post pacemaker implantation as above. 6. History of pulmonary embolism. Continue Eliquis as above. The patient has an IVC filter in place. Charbel Serrato M.D. DR: Fan JOB#: [id number] CC:
--- NOTE | 2019-03-16 19:13 | NUR ---
HAND-OFF: Report given to Lydia NAIR. Pt remains stable.
--- NOTE | 2019-03-16 19:18 | NUR ---
NURSE NOTES: Patient is awake lying semi-barraza's; resting comfortably. No signs of acute distress noted; complains of pain. AOx4; able to make needs known. Ambulates with supervision. IV site; patent and flushed. No erythema, bleeding, or infiltration noted. Bed at lowest position, locked, siderails up x2. Call light within reach. Will continue to monitor.
[2019-03-16 20:00] VITALS: BP 118/98
[2019-03-16] MEDS: Tamsulosin 0.4mg cap ORAL SCH (22:38)
[2019-03-16] MEDS: Latanoprost 0.005% Opth 2.5ml Soln BOTH EYES SCH (22:41)
[2019-03-17] VITALS: BP 121/73
[2019-03-17 04:00] VITALS: BP 115/74
[2019-03-17] MEDS: NovoLOG Insulin Flexpen SUBQ SCH ×4 (06:30→21:00)
--- NOTE | 2019-03-17 07:33 | NUR ---
HAND-OFF: Report given to KOREY Phillips.
[2019-03-17 07:45] LABS: BASOPHILS % (AUTO) 0.6 % (0.0-2.0); EOSINOPHILS % (AUTO) 3.5 % (0.0-3.0); HEMATOCRIT 39.3 % (42.0-52.0); LYMPHOCYTES % (AUTO) 21.6 % (20.0-45.0); MEAN CORPUSCULAR VOLUME 88 FL (80-99); MONOCYTES % (AUTO) 8.6 % (1.0-10.0); NEUTROPHILS % (AUTO) 65.7 % (45.0-75.0); PLATELET COUNT 179 K/UL (150-450); RED BLOOD COUNT 4.46 M/UL (4.70-6.10); RED CELL DISTRIBUTION WIDTH 13.2 % (11.6-14.8)
--- NOTE | 2019-03-17 07:50 | NUR ---
NURSE NOTES: Received report from KOREY Grigsby. The patient is resting on the bed without acute distress or shortness of breath. The patient's bed in the lowest position, call light in reach, and fall and aspiration precaution reinforced. IV site on left hand 22G intact and patent. The patient is scheduled for stress test today but will notify Dr. Lai regarding allergy to unknown dye. Will continue plan of care.
[2019-03-17 08:00] VITALS: BP 123/83
[2019-03-17 08:13] LABS: ANION GAP 8 mmol/L (5-15); BLOOD UREA NITROGEN 14 mg/dL (7-18); CALCIUM 9.1 MG/DL (8.5-10.1); CARBON DIOXIDE 25 MMOL/L (21-32); CHLORIDE 107 MMOL/L (98-107); CHOLESTEROL 166 MG/DL (< 200); CREATININE 1.2 MG/DL (0.55-1.30); HDL CHOLESTEROL 36 MG/DL (40-60); POTASSIUM 3.8 MMOL/L (3.5-5.1); SODIUM 140 MMOL/L (136-145); TRIGLYCERIDES 154 MG/DL (30-150)
[2019-03-17] MEDS: metFORMIN 500mg tab ORAL SCH ×2 (08:47→17:28)
[2019-03-17] MEDS: Cosopt Opth Soln 10 mL Btl BOTH EYES SCH ×2 (08:47→17:28)
[2019-03-17] MEDS: Eliquis 5mg tablet ORAL SCH ×2 (08:47→17:28)
[2019-03-17] MEDS: Brimonidine 0.2% Opth Sol BOTH EYES SCH ×3 (08:47→17:27)
[2019-03-17] MEDS: Aspirin EC 81mg tab ORAL SCH (08:47)
[2019-03-17] MEDS: Docusate 100mg cap ORAL SCH ×2 (09:53→17:28)
[2019-03-17] MEDS: Morphine Sulfate 2mg/ml Inj(IV/IM USE ONLY) IVP PRN ×2 (09:55→20:30)
--- NOTE | 2019-03-17 10:28 | Cardiology Report ---
APPROVED REPORT EXAM: Two-dimensional and M-mode echocardiogram with Doppler and color Doppler. INDICATION Chest Pain M-Mode DIMENSIONS IVSd1.1 (0.7-1.1cm)Left Atrium (MM)3.3 (1.6-4.0cm) LVDd4.3 (3.5-5.6cm)Aortic Root3.3 (2.0-3.7cm) PWd1.1 (0.7-1.1cm)Aortic Cusp Exc.2.0 (1.5-2.0cm) LVDs2.5 (2.5-4.0cm) PWs2.3 cm Normal left ventricular chamber size, systolic function and wall motion. Left ventricular ejection fraction estimated to be 55%. All other cardiac chamber sizes are within normal limits. Focal aortic valve sclerosis with adequate cusp excursion. Thickened mitral valve leaflets with normal excursion. Mild mtral annulus and aortic root calcification. Normal pulmonic valve structure. Normal tricuspid valve structure. IVC is normal in size with physiological collapse. A color flow and spectral Doppler study was performed and revealed: Mild aortic regurgitation. Trace mitral regurgitation. Mitral inflow velocities indicates normal left ventricular diastolic function. Tricuspid systolic velocities suggests peak right ventricular systolic pressure of 29 mmHg. Mild pulmonic regurgitation present.
--- NOTE | 2019-03-17 10:46 | NUR ---
CASE MANAGEMENT: REVIEW 63 YR OLD MALE FROM HOME CC: CHEST PAIN, DIZZINESS IS: CORONARY ARTERY DISEASE. URINE BACTEREMIA 98.4 79 20 106/72 100% RA RBC 4.60;H/H 13.3/40.7; BG 134;LIPASE 51; AST 14 SI: ASPIRIN PO X1 IV MORPHINE X1 IVF NS BOLUS NITROGLYCERIN SL X3 : TO 2E TELE UNIT DCP: TO RETURN HOME CASE MANAGEMENT: REVIEW 03/16/19 IS: CORONARY ARTERY DISEASE 97.7 61 20 115/66 97% RA RBC 4.28; H/H 12.3/39.3 SI: IV MORPHINE Q4/PRN LIPITOR PO HS FLOMAX PO HS XALATAN OU HS COSOPT OU BID ELIQUIS PO HS ALPHAGAN OU BID PROSCAR PO QD METFORMIN PO BID NOVOLOG SD AC/HS : TO 2E TELE UNIT DCP: TO RETURN HOME PLAN: ECHO STRESS TEST CASE MANAGEMENT: REVIEW 03/17/19 IS: CAD 97.7 64 20 115/74 99% RA SI: ASPIRIN PO QD IV MORPHINE Q4/PRN LIPITOR PO HS FLOMAX PO HS XALATAN OU HS COSOPT OU BID ELIQUIS PO HS ALPHAGAN OU BID PROSCAR PO QD METFORMIN PO BID NOVOLOG SD AC/HS : TELE UNIT DCP: TO RETURN HOME PLAN: STRESS TEST
--- NOTE | 2019-03-17 10:54 | NUR ---
NURSE NOTES: The patient is stable without acute distress or shortness of breath. The patient would like to do the stress test tomorrow after family member brings the medical record. Notified to Dr. Mackenzie. Notified Avril regarding allergy to Iodine contrast dye. Notified to charge nurse. No new order. Will continue plan of care.
--- NOTE | 2019-03-17 11:39 | Cardiology Report ---
APPROVED REPORT EKG Measurement Heart [id number] RI [id number] Normal sinus rhythm Possible Left atrial enlargement Borderline ECG
--- NOTE | 2019-03-17 11:39 | Cardiology Report ---
APPROVED REPORT EKG Measurement Heart [id number] Normal sinus rhythm Possible Left atrial enlargement ST elevation, consider early repolarization, pericarditis, or injury Abnormal ECG
--- NOTE | 2019-03-17 11:40 | Pulmonology Progress Note ---
Assessment/Plan Problems: (1) Costochondritis (2) Diabetes mellitus type II, controlled (3) Diabetes mellitus (4) Hx pulmonary embolism (5) HTN (hypertension) (6) COPD (chronic obstructive pulmonary disease) (7) DDD (degenerative disc disease), lumbar Assessment/Plan F/U cardio recommendations symptomatic treatment sliding scale diabetic diet telemetry monitoring Subjective ROS Limited/Unobtainable: No Constitutional: Reports: no symptoms HEENT: Repors: no symptoms Respiratory: Reports: no symptoms Allergies: Coded Allergies: HYDROMORPHONE (Verified Adverse Reaction, Severe, "overwhelms him. can tolerate morphine", 03/01/14) HYDROCODONE (Verified Adverse Reaction, Intermediate, N/V, 10/08/15) Uncoded Allergies: CONTRAST DYE (Allergy, Unknown, 03/15/19) Objective Last 24 Hour Vital Signs Date Time Temp Pulse Resp B/P (MAP) Pulse Ox O2 Delivery O2 Flow Rate FiO2 03/17/19 09:00 Room Air 03/17/19 08:00 97.7 84 20 123/83 (96) 100 03/17/19 04:00 97.7 64 20 115/74 (88) 99 03/17/19 04:00 64 03/17/19 00:00 60 03/17/19 00:00 97.5 88 19 121/73 (89) 97 03/16/19 21:00 Room Air 03/16/19 20:00 60 03/16/19 20:00 97.8 63 20 118/98 (105) 96 03/16/19 16:00 70 03/16/19 16:00 98.0 71 20 100/59 (73) 96 03/16/19 12:00 97.6 76 18 124/52 (76) 100 03/16/19 12:00 61 Intake and Output 03/16/19 03/17/19 19:00 07:00 Intake Total 640 ml Output Total 600 ml Balance 640 ml -600 ml Intake Oral 640 ml Output Urine Total 600 ml # Voids 3 6 # Bowel Movements 1 General Appearance: WD/WN HEENT: normocephalic, atraumatic Respiratory/Chest: chest wall non-tender, lungs clear Cardiovascular: normal peripheral pulses, normal rate Genitourinary: normal external genitalia Extremities: no cyanosis Skin: no rash Neurologic/Psychiatric: chief of planning II-XII grossly normal Microbiology Date/Time Source Procedure Growth Status 03/15/19 15:20 Nasal Nares - Final Complete 03/15/19 15:20 Nasal Nares - Final Complete 03/15/19 16:30 Urine,Clean Catch Urine Culture - Final Staphylococcus Sp Coag Neg Complete Laboratory Tests 03/17/19 05:32: White Blood Count 7.0, Red Blood Count 4.46L, Hemoglobin 13.0L, Hematocrit 39.3L , Mean Corpuscular Volume 88, Mean Corpuscular Hemoglobin 29.0, Mean Corpuscular Hemoglobin Concent 33.0, Red Cell Distribution Width 13.2, Platelet Count 179, Mean Platelet Volume 9.2, Neutrophils (%) (Auto) 65.7, Lymphocytes (% ) (Auto) 21.6, Monocytes (%) (Auto) 8.6, Eosinophils (%) (Auto) 3.5H, Basophils (%) (Auto) 0.6, Sodium Level 140, Potassium Level 3.8, Chloride Level 107, Carbon Dioxide Level 25, Anion Gap 8, Blood Urea Nitrogen 14, Creatinine 1.2, Estimat Glomerular Filtration Rate > 60, Glucose Level 116H, Hemoglobin A1c 7.2H , Uric Acid 5.2, Calcium Level 9.1, Triglycerides Level 154H, Cholesterol Level 166, LDL Cholesterol 89, HDL Cholesterol 36L, Cholesterol/HDL Ratio 4.6H, Thyroid Stimulating Hormone (TSH) 2.689 Current Medications Medications (Trade) Dose Ordered Sig/Kristan Route PRN Reason Start Time Stop Time Status Last Admin Dose Admin Apixaban (Eliquis) 5 mg BID ORAL 03/16/19 09:00 04/15/19 08:59 03/17/19 08:47 Aspirin (Ecotrin) 81 mg DAILY ORAL 03/17/19 09:00 04/16/19 08:59 03/17/19 08:47 Atorvastatin Calcium (Lipitor) 10 mg BEDTIME ORAL 03/16/19 21:00 04/15/19 20:59 03/16/19 22:38 Brimonidine Tartrate (Alphagan) 1 drop TID BOTH EYES 03/16/19 09:00 04/15/19 08:59 03/17/19 08:47 Dextrose (Dextrose 50%) 25 ml Q30M PRN IV Hypoglycemia 03/15/19 22:30 04/14/19 22:29 Dextrose (Dextrose 50%) 50 ml Q30M PRN IV Hypoglycemia 03/15/19 22:30 04/14/19 22:29 Docusate Sodium (Colace) 100 mg TWICE A DAY ORAL 03/17/19 10:00 04/16/19 09:59 03/17/19 09:53 Dorzolamide/ Timolol (Cosopt) 1 drop BID BOTH EYES 03/16/19 18:00 04/15/19 17:59 03/17/19 08:47 Finasteride (Proscar) 5 mg DAILY ORAL 03/16/19 09:00 04/15/19 08:59 03/17/19 08:47 Insulin Aspart (NovoLOG) BEFORE MEALS AND HS SUBQ 03/16/19 06:30 04/15/19 06:29 03/16/19 17:37 Latanoprost (Xalatan) 1 drop BEDTIME BOTH EYES 03/16/19 21:00 04/15/19 20:59 03/16/19 22:41 Metformin HCl (Glucophage) 500 mg TWICE A DAY ORAL 03/16/19 09:00 04/15/19 08:59 03/17/19 08:47 Morphine Sulfate (Morphine Sulfate) 2 mg Q4H PRN IVP Severe Pain (Pain Scale 7-10) 03/15/19 22:30 03/22/19 22:29 03/17/19 09:55 Nitroglycerin (Ntg) 0.4 mg Q5M PRN SL Prn Chest Pain 03/15/19 22:30 04/14/19 22:29 Tamsulosin HCl (Flomax) 0.4 mg BEDTIME ORAL 03/16/19 21:00 04/15/19 20:59 03/16/19 22:38 Violet Schmid MD Mar 17, 2019 11:40
[2019-03-17 12:00] VITALS: BP 112/56
--- NOTE | 2019-03-17 12:52 | Diagnostic Imaging Report ---
Indication: Chest pain Technique: One view of the chest Comparison: 03/14/2016 Findings: There is a left chest pacemaker, not evident previously. Left hemidiaphragm is elevated. Lungs and pleural spaces are clear. There are are median sternotomy sutures again demonstrated. Impression: No acute process
--- NOTE | 2019-03-17 13:56 | NUR ---
*-* NO INSURANCE INFORMATION IN THE BAR UNABLE TO SEND CLINICALS OR REVIEWS *-*
--- NOTE | 2019-03-17 14:04 | NUR ---
NURSE NOTES: The patient is stable without acute distress or shortness of breath. Will continue plan of care.
[2019-03-17 16:00] VITALS: BP 100/56
--- NOTE | 2019-03-17 19:56 | NUR ---
HAND-OFF: Report given to KOREY Grigsby. The patient is resting on the bed without acute distress or shortness of breath. The patient's bed in the lowest position, call light in reach, and fall and aspiration precaution reinforced. IV site intact and patent. Informed KOREY Grigsby that the patient wish to postpone the stress test to 03/18/[address] Mackenzie. Dr. Mackenzie did not order new stress test for 03/18/2019 yet. Asked KOREY Grigsby to follow up for the case. Endorsed plan of care.
[2019-03-17 20:00] VITALS: BP 109/66
--- NOTE | 2019-03-17 20:26 | Internal Med Progress Note ---
Subjective Date of Service: Mar 17, 2019 Physician Name Charbel Serrato Attending Physician Rik Montes MD Current Medications Medications (Trade) Dose Ordered Sig/Kristan Route PRN Reason Start Time Stop Time Status Last Admin Dose Admin Apixaban (Eliquis) 5 mg BID ORAL 03/16/19 09:00 04/15/19 08:59 03/17/19 17:28 Aspirin (Ecotrin) 81 mg DAILY ORAL 03/17/19 09:00 04/16/19 08:59 03/17/19 08:47 Atorvastatin Calcium (Lipitor) 10 mg BEDTIME ORAL 03/16/19 21:00 04/15/19 20:59 03/16/19 22:38 Brimonidine Tartrate (Alphagan) 1 drop TID BOTH EYES 03/16/19 09:00 04/15/19 08:59 03/17/19 17:27 Dextrose (Dextrose 50%) 25 ml Q30M PRN IV Hypoglycemia 03/15/19 22:30 04/14/19 22:29 Dextrose (Dextrose 50%) 50 ml Q30M PRN IV Hypoglycemia 03/15/19 22:30 04/14/19 22:29 Docusate Sodium (Colace) 100 mg TWICE A DAY ORAL 03/17/19 10:00 04/16/19 09:59 03/17/19 17:28 Dorzolamide/ Timolol (Cosopt) 1 drop BID BOTH EYES 03/16/19 18:00 04/15/19 17:59 03/17/19 17:28 Finasteride (Proscar) 5 mg DAILY ORAL 03/16/19 09:00 04/15/19 08:59 03/17/19 08:47 Insulin Aspart (NovoLOG) BEFORE MEALS AND HS SUBQ 03/16/19 06:30 04/15/19 06:29 03/17/19 17:20 Latanoprost (Xalatan) 1 drop BEDTIME BOTH EYES 03/16/19 21:00 04/15/19 20:59 03/16/19 22:41 Metformin HCl (Glucophage) 500 mg TWICE A DAY ORAL 03/16/19 09:00 04/15/19 08:59 03/17/19 17:28 Morphine Sulfate (Morphine Sulfate) 2 mg Q4H PRN IVP Severe Pain (Pain Scale 7-10) 03/15/19 22:30 10/5/19 22:29 03/17/19 09:55 Nitroglycerin (Ntg) 0.4 mg Q5M PRN SL Prn Chest Pain 03/15/19 22:30 04/14/19 22:29 Tamsulosin HCl (Flomax) 0.4 mg BEDTIME ORAL 03/16/19 21:00 04/15/19 20:59 03/16/19 22:38 Allergies: Coded Allergies: HYDROMORPHONE (Verified Adverse Reaction, Severe, "overwhelms him. can tolerate morphine", 03/01/14) HYDROCODONE (Verified Adverse Reaction, Intermediate, N/V, 10/08/15) Uncoded Allergies: CONTRAST DYE (Allergy, Unknown, 03/15/19) ROS Limited/Unobtainable: No Constitutional: Reports: no symptoms HEENT: Reports: no symptoms Cardiovascular: Reports: chest pain Respiratory: Reports: no symptoms Gastrointestinal/Abdominal: Reports: no symptoms Genitourinary: Reports: no symptoms Neurologic/Psychiatric: Reports: no symptoms Subjective 63 YO M admitted with chest pain. Cover for Int Med-Dr Montes. Objective Last Vital Signs Date Time Temp Pulse Resp B/P (MAP) Pulse Ox O2 Delivery O2 Flow Rate FiO2 03/17/19 16:00 70 03/17/19 16:00 97.7 20 100/56 (71) 95 03/17/19 09:00 Room Air Laboratory Tests Test 03/17/19 05:32 White Blood Count 7.0 K/UL (4.8-10.8) Red Blood Count 4.46 M/UL (4.70-6.10) L Hemoglobin 13.0 G/DL (14.2-18.0) L Hematocrit 39.3 % (42.0-52.0) L Mean Corpuscular Volume 88 FL (80-99) Mean Corpuscular Hemoglobin 29.0 PG (27.0-31.0) Mean Corpuscular Hemoglobin Concent 33.0 G/DL (32.0-36.0) Red Cell Distribution Width 13.2 % (11.6-14.8) Platelet Count 179 K/UL (150-450) Mean Platelet Volume 9.2 FL (6.5-10.1) Neutrophils (%) (Auto) 65.7 % (45.0-75.0) Lymphocytes (%) (Auto) 21.6 % (20.0-45.0) Monocytes (%) (Auto) 8.6 % (1.0-10.0) Eosinophils (%) (Auto) 3.5 % (0.0-3.0) H Basophils (%) (Auto) 0.6 % (0.0-2.0) Sodium Level 140 MMOL/L (136-145) Potassium Level 3.8 MMOL/L (3.5-5.1) Chloride Level 107 MMOL/L (98-107) Carbon Dioxide Level 25 MMOL/L (21-32) Anion Gap 8 mmol/L (5-15) Blood Urea Nitrogen 14 mg/dL (7-18) Creatinine 1.2 MG/DL (0.55-1.30) Estimat Glomerular Filtration Rate > 60 mL/min (>60) Glucose Level 116 MG/DL (74-106) H Hemoglobin A1c 7.2 % (4.3-6.0) H Uric Acid 5.2 MG/DL (2.6-7.2) Calcium Level 9.1 MG/DL (8.5-10.1) Triglycerides Level 154 MG/DL (30-150) H Cholesterol Level 166 MG/DL (< 200) LDL Cholesterol 89 mg/dL (<100) HDL Cholesterol 36 MG/DL (40-60) L Cholesterol/HDL Ratio 4.6 (3.3-4.4) H Thyroid Stimulating Hormone (TSH) 2.689 uiU/mL (0.358-3.740) Microbiology Date/Time Source Procedure Growth Status 03/15/19 15:20 Nasal Nares - Final Complete 03/15/19 15:20 Nasal Nares - Final Complete 03/15/19 16:30 Urine,Clean Catch Urine Culture - Final Staphylococcus Sp Coag Neg Complete Intake and Output 03/16/19 03/17/19 19:00 07:00 Intake Total 640 ml Output Total 600 ml Balance 640 ml -600 ml Intake Oral 640 ml Output Urine Total 600 ml # Voids 3 6 # Bowel Movements 1 Objective PHYSICAL EXAMINATION: GENERAL: The patient is well-developed and well-nourished male, in no apparent distress. HEENT: Eyes, pupils are equal and responsive to light and accommodation. Extraocular movements are intact. NECK: Supple without lymphadenopathy. CHEST: Lungs are clear to auscultation bilaterally without wheezes or rales. CARDIOVASCULAR: Regular rate. S1 and S2 normal without murmurs, rubs, or gallops. ABDOMEN: Soft, nontender, and nondistended. Positive bowel sounds. No evidence of hepatosplenomegaly. Currently, no rebound or guarding noted. EXTREMITIES: Negative for clubbing, cyanosis, or edema. RECTAL/GENITAL: Not performed. NEUROLOGIC: Cranial nerves II through XII are grossly intact without focal deficits. Motor strength is 5/5 bilaterally. Deep tendon reflexes are 2+ plantar. Assessment/Plan Assessment/Plan ASSESSMENT: This is a 63-year-old male. 1. Chest pain. 2. Diabetes type 2. 3. Pulmonary embolism, history. 4. Glaucoma. 5. Hypercholesterolemia. 6. Bradycardia. TREATMENT: 1. Chest pain. A Cardiology consultation has been obtained with Dr. Marco Askew. The patient was seen by Dr. Zayas in the past, however he would like to see Dr. Askew this hospitalization. 2. Diabetes type 2. Continue metformin as above. A NovoLog sliding scale has been instituted. 3. Glaucoma. Continue eye drops as above. 4. Hypercholesterolemia. Continue Lipitor as above. 5. Bradycardia. The patient is status post pacemaker implantation as above. 6. History of pulmonary embolism. Continue Eliquis as above. The patient has an IVC filter in place. 7. pacemaker check complete-see cardiology note. Charbel Serrato MD Mar 17, 2019 20:26
[2019-03-17] MEDS: Tamsulosin 0.4mg cap ORAL SCH (20:29)
[2019-03-17] MEDS: Latanoprost 0.005% Opth 2.5ml Soln BOTH EYES SCH (20:31)
--- NOTE | 2019-03-17 21:05 | Cardiology Progress Note ---
Assessment/Plan Status: stable, unchanged Status Narrative Mr Harden was admitted with chest pain. Per records from [facility] ( and other facilities, via [facility] Everywhere), pt has had numerous hospitalizations and ER visits for chest pain - all w/ neg troponins and EKGs. He has had a normal stress nuclear study at [facility] in 07/2018 and a cardiac catheterization ( [facility]) in 11/2017. He has ruled out for LA, and has nl Lv function and wall motion by ECHO Pacemaker was checked last pm - normal pacing/sensing, and no atrial or ventricular tachyarrhythmias noted. Assessment/Plan Probable non-cardiac CP. Would not pursue further ischemia w/u, given results of current and previous testing. Continue q 3 month pacemaker followup. continue anticoagulation, for hx of DVT/PE Subjective ROS Limited/Unobtainable: No Subjective Cardiology for Dr. Askew Pt c/o chest pain - receiving MSO4 IV Objective Last 24 Hour Vital Signs Date Time Temp Pulse Resp B/P (MAP) Pulse Ox O2 Delivery O2 Flow Rate FiO2 03/17/19 16:00 70 03/17/19 16:00 97.7 67 20 100/56 (71) 95 03/17/19 12:00 60 03/17/19 12:00 97.7 60 20 112/56 (74) 98 03/17/19 09:00 Room Air 03/17/19 08:00 97.7 84 20 123/83 (96) 100 03/17/19 08:00 85 03/17/19 04:00 97.7 64 20 115/74 (88) 99 03/17/19 04:00 64 03/17/19 00:00 60 03/17/19 00:00 97.5 88 19 121/73 (89) 97 03/16/19 21:00 Room Air General Appearance: WD/WN, no apparent distress, alert EENT: PERRL/EOMI Neck: non-tender, supple Rhythm: NSR Cardiovascular: normal rate, regular rhythm, no gallop/murmur Respiratory/Chest: lungs clear Abdomen: non tender, soft, no mass Extremities: no swelling Neurologic: alert, oriented x 3 Intake and Output 03/16/19 03/17/19 19:00 07:00 Intake Total 640 ml Output Total 600 ml Balance 640 ml -600 ml Intake Oral 640 ml Output Urine Total 600 ml # Voids 3 6 # Bowel Movements 1 Laboratory Tests Test 03/17/19 05:32 White Blood Count 7.0 K/UL (4.8-10.8) Red Blood Count 4.46 M/UL (4.70-6.10) L Hemoglobin 13.0 G/DL (14.2-18.0) L Hematocrit 39.3 % (42.0-52.0) L Mean Corpuscular Volume 88 FL (80-99) Mean Corpuscular Hemoglobin 29.0 PG (27.0-31.0) Mean Corpuscular Hemoglobin Concent 33.0 G/DL (32.0-36.0) Red Cell Distribution Width 13.2 % (11.6-14.8) Platelet Count 179 K/UL (150-450) Mean Platelet Volume 9.2 FL (6.5-10.1) Neutrophils (%) (Auto) 65.7 % (45.0-75.0) Lymphocytes (%) (Auto) 21.6 % (20.0-45.0) Monocytes (%) (Auto) 8.6 % (1.0-10.0) Eosinophils (%) (Auto) 3.5 % (0.0-3.0) H Basophils (%) (Auto) 0.6 % (0.0-2.0) Sodium Level 140 MMOL/L (136-145) Potassium Level 3.8 MMOL/L (3.5-5.1) Chloride Level 107 MMOL/L (98-107) Carbon Dioxide Level 25 MMOL/L (21-32) Anion Gap 8 mmol/L (5-15) Blood Urea Nitrogen 14 mg/dL (7-18) Creatinine 1.2 MG/DL (0.55-1.30) Estimat Glomerular Filtration Rate > 60 mL/min (>60) Glucose Level 116 MG/DL (74-106) H Hemoglobin A1c 7.2 % (4.3-6.0) H Uric Acid 5.2 MG/DL (2.6-7.2) Calcium Level 9.1 MG/DL (8.5-10.1) Triglycerides Level 154 MG/DL (30-150) H Cholesterol Level 166 MG/DL (< 200) LDL Cholesterol 89 mg/dL (<100) HDL Cholesterol 36 MG/DL (40-60) L Cholesterol/HDL Ratio 4.6 (3.3-4.4) H Thyroid Stimulating Hormone (TSH) 2.689 uiU/mL (0.358-3.740) Microbiology Date/Time Source Procedure Growth Status 03/15/19 15:20 Nasal Nares - Final Complete 03/15/19 15:20 Nasal Nares - Final Complete 03/15/19 16:30 Urine,Clean Catch Urine Culture - Final Staphylococcus Sp Coag Neg Complete Clara Mackenzie MD Mar 17, 2019 21:05
[2019-03-18] VITALS: BP 112/71
[2019-03-18] MEDS: Morphine Sulfate 2mg/ml Inj(IV/IM USE ONLY) IVP PRN ×2 (00:50→11:18)
[2019-03-18] MEDS: NovoLOG Insulin Flexpen SUBQ SCH ×2 (06:19→11:30)
--- NOTE | 2019-03-18 07:30 | NUR ---
NURSE NOTES: Received patient from Melvin Freeman. Patient is awake and alert. no c/o pain or discomfort. ambulatory with steady gate. VSS. call light within patients reach will follow.
[2019-03-18 07:46] LABS: BASOPHILS % (AUTO) 0.6 % (0.0-2.0); EOSINOPHILS % (AUTO) 3.1 % (0.0-3.0); HEMATOCRIT 37.6 % (42.0-52.0); HEMOGLOBIN 12.5 G/DL (14.2-18.0); LYMPHOCYTES % (AUTO) 21.5 % (20.0-45.0); MEAN CORPUSCULAR VOLUME 89 FL (80-99); MONOCYTES % (AUTO) 7.6 % (1.0-10.0); NEUTROPHILS % (AUTO) 67.3 % (45.0-75.0); PLATELET COUNT 187 K/UL (150-450); RED BLOOD COUNT 4.24 M/UL (4.70-6.10); RED CELL DISTRIBUTION WIDTH 13.6 % (11.6-14.8); WHITE BLOOD COUNT 7.4 K/UL (4.8-10.8)
--- NOTE | 2019-03-18 07:51 | NUR ---
HAND-OFF: Report given to KOREY Hart.
[2019-03-18 07:58] LABS: ANION GAP 9 mmol/L (5-15); BLOOD UREA NITROGEN 17 mg/dL (7-18); CALCIUM 8.7 MG/DL (8.5-10.1); CARBON DIOXIDE 23 MMOL/L (21-32); CHLORIDE 106 MMOL/L (98-107); CREATININE 1.3 MG/DL (0.55-1.30); POTASSIUM 3.8 MMOL/L (3.5-5.1); SODIUM 138 MMOL/L (136-145)
[2019-03-18 08:00] VITALS: BP 110/82
[2019-03-18] MEDS: Aspirin EC 81mg tab ORAL SCH (09:10)
[2019-03-18] MEDS: Docusate 100mg cap ORAL SCH (09:10)
[2019-03-18] MEDS: metFORMIN 500mg tab ORAL SCH (09:10)
[2019-03-18] MEDS: Eliquis 5mg tablet ORAL SCH (09:10)
[2019-03-18] MEDS: Brimonidine 0.2% Opth Sol BOTH EYES SCH (09:11)
[2019-03-18] MEDS: Cosopt Opth Soln 10 mL Btl BOTH EYES SCH (09:11)
--- NOTE | 2019-03-18 10:36 | NUR ---
*-* INSURANCE *-* ALL CLINICALS AND REVIEWS HAVE BEEN FAXED TO: [facility] Tracking#[id number] Balancer.: Ruthie #[phone]
--- NOTE | 2019-03-18 11:47 | Pulmonology Progress Note ---
Assessment/Plan Problems: (1) Costochondritis (2) Diabetes mellitus type II, controlled (3) Diabetes mellitus (4) Hx pulmonary embolism (5) HTN (hypertension) (6) COPD (chronic obstructive pulmonary disease) (7) DDD (degenerative disc disease), lumbar Assessment/Plan doing better F/U cardio recommendations symptomatic treatment sliding scale diabetic diet telemetry monitoring Subjective ROS Limited/Unobtainable: No Constitutional: Reports: no symptoms Respiratory: Reports: no symptoms Cardiovascular: Reports: no symptoms Allergies: Coded Allergies: HYDROMORPHONE (Verified Adverse Reaction, Severe, "overwhelms him. can tolerate morphine", 03/01/14) HYDROCODONE (Verified Adverse Reaction, Intermediate, N/V, 10/08/15) Uncoded Allergies: CONTRAST DYE (Allergy, Unknown, 03/15/19) Objective Last 24 Hour Vital Signs Date Time Temp Pulse Resp B/P (MAP) Pulse Ox O2 Delivery O2 Flow Rate FiO2 03/18/19 08:00 97.9 76 18 110/82 (91) 98 03/18/19 04:00 68 03/18/19 00:00 97.3 68 20 112/71 (85) 96 03/18/19 00:00 69 03/17/19 21:00 Room Air 03/17/19 20:00 98.2 70 19 109/66 (80) 97 03/17/19 19:34 85 03/17/19 16:00 70 03/17/19 16:00 97.7 67 20 100/56 (71) 95 03/17/19 12:00 60 03/17/19 12:00 97.7 60 20 112/56 (74) 98 Intake and Output 03/17/19 03/18/19 19:00 07:00 Intake Total 500 ml Output Total 350 ml Balance 500 ml -350 ml Intake Oral 500 ml Output Urine Total 350 ml # Voids 5 2 # Bowel Movements 1 General Appearance: WD/WN HEENT: normocephalic, atraumatic Respiratory/Chest: chest wall non-tender Cardiovascular: normal peripheral pulses, normal rate Abdomen: normal bowel sounds, soft, non tender Genitourinary: normal external genitalia Skin: no rash Neurologic/Psychiatric: store team member II-XII grossly normal Microbiology Date/Time Source Procedure Growth Status 03/15/19 15:20 Nasal Nares - Final Complete 03/15/19 15:20 Nasal Nares - Final Complete 03/15/19 16:30 Urine,Clean Catch Urine Culture - Final Staphylococcus Sp Coag Neg Complete Laboratory Tests 03/18/19 05:50: White Blood Count 7.4, Red Blood Count 4.24L, Hemoglobin 12.5L, Hematocrit 37.6L , Mean Corpuscular Volume 89, Mean Corpuscular Hemoglobin 29.4, Mean Corpuscular Hemoglobin Concent 33.1, Red Cell Distribution Width 13.6, Platelet Count 187, Mean Platelet Volume 9.3, Neutrophils (%) (Auto) 67.3, Lymphocytes (% ) (Auto) 21.5, Monocytes (%) (Auto) 7.6, Eosinophils (%) (Auto) 3.1H, Basophils (%) (Auto) 0.6, Sodium Level 138, Potassium Level 3.8, Chloride Level 106, Carbon Dioxide Level 23, Anion Gap 9, Blood Urea Nitrogen 17, Creatinine 1.3, Estimat Glomerular Filtration Rate > 60, Glucose Level 206H, Calcium Level 8.7 Current Medications Medications (Trade) Dose Ordered Sig/Kristan Route PRN Reason Start Time Stop Time Status Last Admin Dose Admin Apixaban (Eliquis) 5 mg BID ORAL 03/16/19 09:00 04/15/19 08:59 03/18/19 09:10 Aspirin (Ecotrin) 81 mg DAILY ORAL 03/17/19 09:00 04/16/19 08:59 03/18/19 09:10 Atorvastatin Calcium (Lipitor) 10 mg BEDTIME ORAL 03/16/19 21:00 04/15/19 20:59 03/17/19 20:29 Brimonidine Tartrate (Alphagan) 1 drop TID BOTH EYES 03/16/19 09:00 04/15/19 08:59 03/18/19 09:11 Dextrose (Dextrose 50%) 25 ml Q30M PRN IV Hypoglycemia 03/15/19 22:30 04/14/19 22:29 Dextrose (Dextrose 50%) 50 ml Q30M PRN IV Hypoglycemia 03/15/19 22:30 04/14/19 22:29 Docusate Sodium (Colace) 100 mg TWICE A DAY ORAL 03/17/19 10:00 04/16/19 09:59 03/18/19 09:10 Dorzolamide/ Timolol (Cosopt) 1 drop BID BOTH EYES 03/16/19 18:00 04/15/19 17:59 03/18/19 09:11 Finasteride (Proscar) 5 mg DAILY ORAL 03/16/19 09:00 04/15/19 08:59 03/18/19 09:10 Insulin Aspart (NovoLOG) BEFORE MEALS AND HS SUBQ 03/16/19 06:30 04/15/19 06:29 03/18/19 06:19 Latanoprost (Xalatan) 1 drop BEDTIME BOTH EYES 03/16/19 21:00 04/15/19 20:59 03/17/19 20:31 Metformin HCl (Glucophage) 500 mg TWICE A DAY ORAL 03/16/19 09:00 04/15/19 08:59 03/18/19 09:10 Morphine Sulfate (Morphine Sulfate) 2 mg Q4H PRN IVP Severe Pain (Pain Scale 7-10) 03/15/19 22:30 03/22/19 22:29 03/18/19 00:50 Nitroglycerin (Ntg) 0.4 mg Q5M PRN SL Prn Chest Pain 03/15/19 22:30 04/14/19 22:29 Tamsulosin HCl (Flomax) 0.4 mg BEDTIME ORAL 03/16/19 21:00 04/15/19 20:59 03/17/19 20:29 Violet Schmid MD Mar 18, 2019 11:47
[2019-03-18 12:00] VITALS: BP 114/67
--- NOTE | 2019-03-18 13:44 | NUR ---
NURSE NOTES: Received discharge order from Dr. Schmid. Per MD patient is now cleared to to home per cardiology. discharge instructions reviewed with patient. verbalizes understanding. VSS. patient left floor at 1320. picked up by his friend on private vehicle. patient left in no distress and ambulated with steady gate.
--- NOTE | 2019-03-19 10:35 | Discharge Summary ---
Discharge Summary Discharge Summary _ DATE OF ADMISSION: 03/15/2019 DATE OF DISCHARGE: 03/18/[address] Montes REASON FOR ADMISSION: 63 years old male with past medical history of pulmonary embolism, status post thrombectomy, diabetes mellitus, recently placed in January 2018 pacemaker, presented after 2 hours of increased central chest pain with radiation to his neck. Patient reported pain for 3 days, which became progressively worse. He also experienced symptoms like his heart was racing and he was unable to stop it. Patient had pacemaker placed in [facility] in January 2018 due to bradycardia and heart block, not sure about details. Patient was seen chief scientific officer about 6 months ago when his pacemaker was checked. Patient had stress test in beginning of this year , which apparently was stable. No associated shortness of breath. No fever or chills. No blackouts. No seizures. Upon evaluation laboratory work-up revealed negative troponin. EKG revealed normal sinus rhythm, no acute ischemic changes. No leukocytosis, stable hemoglobin and hematocrit. Patient received aspirin and subsequently admitted to telemetry floor for further management to rule out acute coronary syndrome. CONSULTANTS: chief scientific officer Dr. Morillo hospitalist Dr. Schmid [facility] COURSE: Patient admitted to telemetry floor. Serial troponin were negative. EKG revealed no acute ischemic changes. Patient was ruled out for acute myocardial infarction. Echocardiogram revealed ejection fraction of 55% with no evidence of wall motion abnormality. Mild aortic regurgitation noted. Right ventricular systolic pressure of 29. Lipid panel was stable . Patient started on antiplatelet therapy with aspirin and was continued on Eliquis. Statin continued. Blood pressure was closely monitored and remained stable , no need for antihypertensive at this time. Sheriff Deputy seen and evaluated patient. Patient had numerous hospitalization and emergency room visits for chest pain with always negative troponin and EKG. Nuclear stress test was done in July 2018 at [facility] and was stable. Cardiac catheterization was done at [facility] in November 2017 and was stable. Pacemaker interrogation was done, which revealed normal pacing/sensing, no atrial or ventricular tachyarrhythmia were noted. According to chief scientific officer, patient likely had noncardiac chest pain. Sheriff Deputy did not recommend to further pursue ischemia work-up, given the results of current and previous testing. She recommended to continue anticoagulation due to history of PE. Sheriff Deputy recommended and encouraged patient to follow up with pacemaker check up every 3 months. Pain management was addressed. Nitroglycerin provided as needed. Blood sugar was managed with metformin and sliding scale of insulin as needed. Hemoglobin A1c near at goal 7.2. Urinalysis revealed pyuria, but no urinary complaints. Urine culture revealed Staph coagulase negative with colony count 50-60K, likely colonized . No urinary complaints , no fever , no leukocytosis. No antibiotics were initiated. Home medication continued. Patient was educated on low-fat low-cholesterol cardiac diabetic diet and compliance with medication regimen. Chest pain resolved . Patient was stable for discharge home. FINAL DIAGNOSES: Noncardiac chest pain Costochondritis Status post pacemaker implantation ,January 2018, due to heart block History of PE, on anticoagulation therapy, status post IVC filter 2012 Diabetes mellitus type 2, controlled Hyperlipidemia COPD DDD Glaucoma DISCHARGE MEDICATIONS: See Medication Reconciliation list. DISCHARGE INSTRUCTIONS: Patient was discharged home. Follow up with primary care provider in one week. Angelica Prakash NP Mar 19, 2019 10:34
== END 2019-03-18 13:10 | disposition home or self-care (01) | DRG 206 ==
LOC: EMR 15:21 → 2E 15:37 → EDBEDREQ 16:52
DX: M94.0 Chondrocostal junction syndrome [Tietze] (principal); I25.10 Atherosclerotic heart disease of native coronary artery without angina pectoris; Z86.711 Personal history of pulmonary embolism; H40.9 Unspecified glaucoma; E11.9 Type 2 diabetes mellitus without complications; Z95.0 Presence of cardiac pacemaker; Z79.01 Long term (current) use of anticoagulants; Z79.84 Long term (current) use of oral hypoglycemic drugs; Z88.6 Allergy status to analgesic agent; Z91.041 Radiographic dye allergy status; E78.00 Pure hypercholesterolemia, unspecified; R00.1 Bradycardia, unspecified; J44.9 Chronic obstructive pulmonary disease, unspecified; M51.36 Other intervertebral disc degeneration, lumbar region
CPT/HCPCS: 36415; 71045; 80048; 80053; 80061; 80307; 81003; 82550; 82553; 82962; 83036; 83690; 83735; 83880; 84100; 84443; 84484; 84550; 85025; 85379; 85610; 85730; 86710; 87086; 93005; 93306; 99285; J1815

== ENCOUNTER 2019-04-11 17:04 | Inpatient (IN) | payer OTHER, MEDICAID ==
[~2019-04-11] VITALS: Ht 172.7 cm; Wt 88.9 kg
[2019-04-11 17:14] VITALS: BP 136/77
--- NOTE | 2019-04-11 18:13 | Diagnostic Imaging Report ---
EXAM: XR Chest, 1 View CLINICAL HISTORY: CP TECHNIQUE: Frontal view of the chest. COMPARISON: 03 15 2019. FINDINGS: Lungs: No focal consolidation. Pleural space: Unremarkable. No pneumothorax. Heart: Unremarkable. No cardiomegaly. Mediastinum: Unremarkable. Bones joints: Sternotomy. Tubes, lines and devices: Left chest cardiac pacer. IMPRESSION: No focal consolidation.
--- NOTE | 2019-04-11 18:17 | Emergency Room Report ---
History of Present Illness General Chief Complaint: Chest Pain Source: Patient, Medical Record Present Illness HPI 64-year-old male history of hypertension, hyperlipidemia, pulmonary embolism presents with shortness of breath, chest tightness started 1.5 hours prior to arrival, aggravated with exertion alleviated with rest severity is moderate, constant, no nausea, he does endorse some shortness of breath, patient denies any diaphoresis, patient presents for evaluation. Allergies: Coded Allergies: HYDROMORPHONE (Verified Adverse Reaction, Severe, "overwhelms him. can tolerate morphine", 03/01/14) HYDROCODONE (Verified Adverse Reaction, Intermediate, N/V, 10/08/15) Uncoded Allergies: CONTRAST DYE (Allergy, Unknown, 03/15/19) Patient History Past Medical History: see triage record Reviewed Nursing Documentation: PMH: Agreed; PSxH: Agreed Nursing Documentation-PMH Past Medical History: No History, Except For Hx Cardiac Problems: Yes - midline incision for removal blood clot post PE Hx Hypertension: No Hx Pacemaker: Yes - 2018 Hx Asthma: No Hx Diabetes: Yes Hx Cancer: No Hx Gastrointestinal Problems: No Hx Dialysis: No Hx Neurological Problems: No Hx Cerebrovascular Accident: No Hx Seizures: No Review of Systems All Other Systems: negative except mentioned in HPI Physical Exam Vital Signs Date Time Temp Pulse Resp B/P (MAP) Pulse Ox O2 Delivery O2 Flow Rate FiO2 04/11/19 17:12 98.4 104 16 136/77 (96) 95 Room Air Sp02 EP Interpretation: reviewed, normal General Appearance: well appearing, no apparent distress, alert Head: normocephalic, atraumatic Eyes: bilateral eye PERRL, bilateral eye EOMI ENT: uvula midline, moist mucus membranes Neck: supple, thyroid normal, supple/symm/no masses Respiratory: lungs clear, no respiratory distress, no retraction, no accessory muscle use Cardiovascular #1: normal peripheral pulses, regular rate, rhythm, no edema, no gallop, no murmur Gastrointestinal: non tender, soft, no guarding, no rebound Musculoskeletal: normal inspection Neurologic: alert, oriented x3 Psychiatric: mood/affect normal Skin: no rash, warm/dry Medical Decision Making Diagnostic Impression: Primary Impression: Chest pain Qualified Codes: R07.9 - Chest pain, unspecified ER Course 64-year-old male history of recurrent chest pain, ddx includes acs, pe, dissection. Troponin negative CXR negative Will admit patient for continued monitoring aspirin given Patient admitted to dr. Schmid Laboratory Tests Test 04/11/19 17:35 04/11/19 19:15 White Blood Count 20.3 K/UL (4.8-10.8) H Red Blood Count 4.92 M/UL (4.70-6.10) Hemoglobin 13.7 G/DL (14.2-18.0) L Hematocrit 42.5 % (42.0-52.0) Mean Corpuscular Volume 86 FL (80-99) Mean Corpuscular Hemoglobin 27.9 PG (27.0-31.0) Mean Corpuscular Hemoglobin Concent 32.2 G/DL (32.0-36.0) Red Cell Distribution Width 12.0 % (11.6-14.8) Platelet Count 252 K/UL (150-450) Mean Platelet Volume 9.8 FL (6.5-10.1) Neutrophils (%) (Auto) % (45.0-75.0) Lymphocytes (%) (Auto) % (20.0-45.0) Monocytes (%) (Auto) % (1.0-10.0) Eosinophils (%) (Auto) % (0.0-3.0) Basophils (%) (Auto) % (0.0-2.0) Differential Total Cells Counted 100 Neutrophils % (Manual) 85 % (45-75) H Lymphocytes % (Manual) 9 % (20-45) L Monocytes % (Manual) 4 % (1-10) Eosinophils % (Manual) 2 % (0-3) Basophils % (Manual) 0 % (0-2) Band Neutrophils 0 % (0-8) Platelet Estimate Adequate Platelet Morphology Normal Red Blood Cell Morphology Normal Prothrombin Time 10.6 SEC (9.30-11.50) Prothrombin Time INR 1.0 (0.9-1.1) PTT 26 SEC (23-33) Sodium Level 143 MMOL/L (136-145) Potassium Level 4.3 MMOL/L (3.5-5.1) Chloride Level 105 MMOL/L (98-107) Carbon Dioxide Level 23 MMOL/L (21-32) Anion Gap 16 mmol/L (5-15) H Blood Urea Nitrogen 23 mg/dL (7-18) H Creatinine 1.5 MG/DL (0.55-1.30) H Estimate Glomerular Filtration Rate 57.4 mL/min (>60) Glucose Level 173 MG/DL (74-106) H Calcium Level 10.5 MG/DL (8.5-10.1) H Total Bilirubin 0.5 MG/DL (0.2-1.0) Aspartate Amino Transferase (AST) 8 U/L (15-37) L Alanine Aminotransferase (ALT) 17 U/L (12-78) Alkaline Phosphatase 73 U/L (46-116) Total Creatine Kinase 85 U/L (26-308) Creatine Kinase MB 1.1 NG/ML (0.0-3.6) Creatine Kinase MB Relative Index 1.2 Troponin I 0.000 ng/mL (0.000-0.056) Pro-B-Type Natriuretic Peptide 120 pg/mL (0-125) Total Protein 7.9 G/DL (6.4-8.2) Albumin 4.1 G/DL (3.4-5.0) Globulin 3.8 g/dL Albumin/Globulin Ratio 1.1 (1.0-2.7) Lipase 53 U/L (73-393) L Urine Opiates Screen Pending Urine Barbiturates Screen Pending Phencyclidine (PCP) Screen Pending Urine Amphetamines Screen Pending Urine Benzodiazepines Screen Pending Urine Cocaine Screen Pending Urine Marijuana (THC) Screen Pending EKG Diagnostic Results EKG Time: 17:15 EP Interpretation: NSR, rate 81, QTc 415, no acute ST elevations, normal axis Rhythm Strip Diag. Results Rhythm Strip Time: 18:16 EP Interpretation: yes Rate: 72 Rhythm: NSR, no PVC's, no ectopy Chest X-Ray Diagnostic Results Chest X-Ray Diagnostic Results : Chest X-Ray Ordered: Yes # of Views/Limited/Complete: 1 View Indication: Chest Pain EP Interpretation: Yes Interpretation: no consolidation, no effusion, no pneumothorax, no acute cardiopulmonary disease Impression: No acute disease Electronically Signed by: Yeyo Chávez MD Last Vital Signs Date Time Temp Pulse Resp B/P (MAP) Pulse Ox O2 Delivery O2 Flow Rate FiO2 04/11/19 17:14 98.4 16 136/77 95 Room Air 04/11/19 17:12 104 Disposition: ADMITTED INPATIENT Condition: Stable Yeyo Chávez MD Apr 11, 2019 18:17
[2019-04-11 18:34] LABS: HEMATOCRIT 42.5 % (42.0-52.0); HEMOGLOBIN 13.7 G/DL (14.2-18.0); MEAN CORPUSCULAR VOLUME 86 FL (80-99); PLATELET COUNT 252 K/UL (150-450); RED BLOOD COUNT 4.92 M/UL (4.70-6.10); WHITE BLOOD COUNT 20.3 K/UL (4.8-10.8)
--- NOTE | 2019-04-11 18:38 | NUR ---
ED Nurse Note: pt from home came in c/o cp . pt placed on monitor blood sent .Pt unable urinate at this time ermd aware. blood sent to lab pt medicated will monitor vss.
[2019-04-11 18:50] LABS: ANION GAP 16 mmol/L (5-15); BLOOD UREA NITROGEN 23 mg/dL (7-18); CALCIUM 10.5 MG/DL (8.5-10.1); CARBON DIOXIDE 23 MMOL/L (21-32); CHLORIDE 105 MMOL/L (98-107); CREATININE 1.5 MG/DL (0.55-1.30); POTASSIUM 4.3 MMOL/L (3.5-5.1); SODIUM 143 MMOL/L (136-145)
--- NOTE | 2019-04-11 19:00 | NUR ---
HAND-OFF: Report given to Tej NAIR.
--- NOTE | 2019-04-11 19:01 | NUR ---
ED Nurse Note: Received pt from KOREY Baker. Pt is in bed and stable. Medication administered, pt is AAOx4, pt on monitor, and is pending Tele admission.
[2019-04-11 19:05] VITALS: BP 115/76
[2019-04-11 19:11] LABS: ALANINE AMINOTRANSFERASE 17 U/L (12-78); ALBUMIN 4.1 G/DL (3.4-5.0); ALBUMIN/GLOBULIN RATIO 1.1 (1.0-2.7); ALKALINE PHOSPHATASE 73 U/L (46-116); ASPARTATE AMINO TRANSFERASE 8 U/L (15-37); BILIRUBIN,TOTAL 0.5 MG/DL (0.2-1.0); CKMB 1.1 NG/ML (0.0-3.6); CREATINE KINASE 85 U/L (26-308)
--- NOTE | 2019-04-11 20:34 | NUR ---
ED Nurse Called [facility] said they will call back when the nurse is avalable.
[2019-04-11] MEDS ORDERED: fentaNYL 100 mcg/2 mL IV ONE (20:45)
--- NOTE | 2019-04-11 21:40 | NUR ---
TRANSFER TO FLOOR: Patient transferred to as ordered, per MD Simon. Report given to KOREY Ramos. Belongings given to KOREY Ramos. Family and or S/O informed of transfer.
--- NOTE | 2019-04-11 22:30 | NUR ---
NURSE NOTES: Received patient from ED, via gurney. Patient awake, alert, talkative. In no distress noted. Breathing even and unlabored. Patient put on monitor technician. Belongings sheet signed by patient. Patient A/Ox4, noted with steady gait. Patient oriented to the room and unit. Bed in lowest position. Call lights within reach. Will call Dr. Montes for Admission orders.
[2019-04-12] MEDS ORDERED: HYDROcodone/Acetamin 10/325 tab ORAL SCH (01:15)
[2019-04-12] MEDS ORDERED: Nitroglycerin Subl 0.4mg tab SL PRN (01:30)
--- NOTE | 2019-04-12 07:25 | NUR ---
NURSE NOTES: Received report form KOREY Ramos. Patient is resting in bed, in stable condition. No s/sx of SOB, breathing is even and unlabored. Denies any presence of pain or discomfort at this time. Bed is in lowest position, brakes engaged, Call light is kept within easy reach. Will continue to monitor patient.
[2019-04-12 07:41] LABS: BASOPHILS % (AUTO) 0.9 % (0.0-2.0); EOSINOPHILS % (AUTO) 0.3 % (0.0-3.0); HEMATOCRIT 38.1 % (42.0-52.0); HEMOGLOBIN 12.4 G/DL (14.2-18.0); LYMPHOCYTES % (AUTO) 13.9 % (20.0-45.0); MEAN CORPUSCULAR VOLUME 86 FL (80-99); MONOCYTES % (AUTO) 7.8 % (1.0-10.0); NEUTROPHILS % (AUTO) 77.1 % (45.0-75.0); PLATELET COUNT 197 K/UL (150-450); RED BLOOD COUNT 4.41 M/UL (4.70-6.10); RED CELL DISTRIBUTION WIDTH 13.5 % (11.6-14.8); WHITE BLOOD COUNT 14.4 K/UL (4.8-10.8)
[2019-04-12 08:00] VITALS: BP 126/77
--- NOTE | 2019-04-12 08:00 | NUR ---
NURSE NOTES: Patient noted allergic to hydrocodone, pt noted with norco 10/325 mg scheduled. Pt states has pain of 7/10 chest radiating to left side of neck. Patient noted no facial grimacing, no SOB on room air, per patient states morphine IV helps with pain, pt noted allergic to hydromorphone, pt states allergy is to dilaudid because it too overwhelming but have taken morphine IV before and is fine with it. Contacted and informed Dr. Montes of situation, Dr. Montes ordered to discontinued [place] and ordered Morphine 2mg IV q6hr for pain. Order entered, noted, and carried out. This nurse also called pharmacy and spoke with Sarah and made aware of situation. Will continue to monitor patient.
[2019-04-12 08:15] LABS: ALANINE AMINOTRANSFERASE 14 U/L (12-78); ALBUMIN 3.2 G/DL (3.4-5.0); ALBUMIN/GLOBULIN RATIO 0.9 (1.0-2.7); ALKALINE PHOSPHATASE 59 U/L (46-116); ANION GAP 11 mmol/L (5-15); ASPARTATE AMINO TRANSFERASE 9 U/L (15-37); BILIRUBIN,TOTAL 0.3 MG/DL (0.2-1.0); BLOOD UREA NITROGEN 17 mg/dL (7-18); CALCIUM 8.9 MG/DL (8.5-10.1); CARBON DIOXIDE 23 MMOL/L (21-32); CHLORIDE 108 MMOL/L (98-107); CREATININE 1.2 MG/DL (0.55-1.30); PHOSPHORUS 3.3 MG/DL (2.5-4.9); SODIUM 142 MMOL/L (136-145)
[2019-04-12] MEDS: NovoLOG Insulin Flexpen SUBQ SCH ×4 (08:21→20:43)
[2019-04-12] MEDS: Cosopt Opth Soln 10 mL Btl BOTH EYES SCH ×2 (09:36→17:37)
[2019-04-12] MEDS: Brimonidine 0.2% Opth Sol BOTH EYES SCH ×3 (09:36→17:37)
[2019-04-12] MEDS: Eliquis 5mg tablet ORAL SCH ×2 (09:36→17:37)
[2019-04-12] MEDS: metFORMIN 500mg tab ORAL SCH ×2 (09:36→17:37)
[2019-04-12 12:00] VITALS: BP 107/61
[2019-04-12] MEDS: Morphine Sulfate 2mg/ml Inj(IV/IM USE ONLY) IVP PRN ×2 (13:44→20:38)
[2019-04-12 16:00] VITALS: BP 105/62
--- NOTE | 2019-04-12 18:07 | History & Physical ---
History and Physical History & Physicial Dictated for Int Med-Dr Montes no. [id number] Charbel Serrato MD Apr 12, 2019 18:07
--- NOTE | 2019-04-12 19:21 | NUR ---
HAND-OFF: Report given to KOREY Ramos.
[2019-04-12 20:00] VITALS: BP 104/67
[2019-04-12] MEDS: Latanoprost 0.005% Opth 2.5ml Soln BOTH EYES SCH (20:44)
[2019-04-12] MEDS: Tamsulosin 0.4mg cap ORAL SCH (22:16)
[2019-04-13] VITALS: BP 118/71
[2019-04-13] MEDS: Morphine Sulfate 2mg/ml Inj(IV/IM USE ONLY) IVP PRN ×3 (02:56→21:52)
--- NOTE | 2019-04-13 03:30 | History and Physical Report ---
DATE OF ADMISSION: 04/11/2019 CHIEF COMPLAINT: The patient is a 64-year-old male, who presents with a chief complaint of chest pain and palpitations. HISTORY OF PRESENT ILLNESS: The patient has a history of pacemaker implantation in 2018. The patient states he was at home sitting on the couch on 04/11/2019. The patient states his heart rate began to raise. The patient thought may be his pacemaker was misfiring. The patient then began to develop chest pain. Chest pain is substernal. There is no radiation to the jaw or to the shoulder. The patient presented to [facility] emergency room. The patient was admitted for chest pain and palpitations to rule out acute coronary syndrome. REVIEW OF SYSTEMS: CONSTITUTIONAL: The patient denies weight loss or weight gain. The patient denies fevers or chills. HEENT: The patient denies ear or throat pain. The patient denies headache. CARDIOVASCULAR: The patient complains of chest pain as above. The patient complains of palpitations as above. ABDOMEN: The patient denies nausea, vomiting, diarrhea, or constipation. GENITOURINARY: The patient denies dysuria or increased frequency of urination. NEUROMUSCULAR: The patient denies seizures or generalized weakness. PAST MEDICAL HISTORY: Significant for, 1. Bilateral pulmonary embolism in 2012, status post IVC filter placement and currently on Eliquis. 2. Glaucoma of both eyes. 3. Diabetes type 2. 4. Hypercholesterolemia. 5. History of bradycardia, status post pacemaker implantation. PAST SURGICAL HISTORY: Significant for, 1. Pacemaker implantation in 01/2018 at [facility]. 2. IVC filter placement. 3. Pulmonary embolectomy and thoracotomy, secondary to pulmonary embolism as above. 4. Bilateral eye surgery x2. CURRENT MEDICATIONS: 1. Eliquis 5 mg one tablet p.o. twice daily. 2. Lipitor 10 mg p.o. daily. 3. Alphagan one drop to both eyes three times daily. 4. to both eyes twice daily. 5. Cosopt 1 drop to each eye twice daily. 6. Proscar 5 mg p.o. daily. 7. Osseo 10/325 mg one tablet p.o. q.6 hours p.r.n. 8. Metformin 500 mg p.o. twice daily. 9. Flomax 0.4 mg p.o. at bedtime. 10. Travatan 1 drop to both eyes daily. ALLERGIES: 1. Iodine contrast dye. 2. Dilaudid. SOCIAL HISTORY: The patient is single and lives alone. The patient is disabled. The patient denies tobacco or alcohol use. PHYSICAL EXAMINATION: VITAL SIGNS: Temperature 98.4, respirations 16, pulse 104, blood pressure 136/77. GENERAL: The patient is a well-developed, well-nourished male, in no apparent distress. HEENT: Eyes, pupils equal and responsive to light and accommodation. Extraocular movements are intact. NECK: Supple without lymphadenopathy. CHEST: Lungs are clear to auscultation bilaterally without wheezes or rales. CARDIOVASCULAR: Regular rate. S1-S2 are normal without murmurs, rubs, or gallops. ABDOMEN: Soft, nontender, and nondistended. Positive bowel sounds. No evidence of hepatosplenomegaly. Currently, no rebound or guarding noted. EXTREMITIES: Negative for clubbing, cyanosis, or edema. RECTAL/GENITAL: Not performed. NEUROLOGIC: Cranial nerves II through XII are grossly intact without focal deficits. Motor strength is 5/5 bilaterally. Deep tendon reflexes are 2+ plantar. LABORATORY AND DIAGNOSTIC DATA: Laboratory studies, WBC 20.3, hemoglobin 13.7, hematocrit 42.5, platelets 252,000. Sodium 143, potassium 4.3 chloride 105, CO2 23, BUN 23, creatinine 1.5, glucose 173. Troponin is 0.0. Chest x-ray revealed presence of pacemaker, otherwise no acute disease. ASSESSMENT: This is a 64-year-old male with: 1. Chest pain. 2. Palpitation. 3. Tachycardia. 4. Diabetes type 2. 5. Hypercholesterolemia. 6. Glaucoma. 7. History of pulmonary embolism. TREATMENT: 1. Chest pain/palpitations. A Cardiology consultation has been obtained with Dr. Gato Zayas. We will follow recommendations of Cardiology. Pacemaker may be malfunction at this time. Serial troponin levels will be performed. 2. Diabetes type 2. The patient has been started on a regular insulin sliding scale. 3. Hypercholesterolemia. Continue Lipitor as above. 4. Glaucoma of bilateral eyes. Continue eye drops as above. 5. History of pulmonary embolism. Continue Eliquis as above. Charbel Serrato M.D. DR: CAIN JOB#: [id number] CC:
[2019-04-13 04:00] VITALS: BP 109/72
[2019-04-13] MEDS: NovoLOG Insulin Flexpen SUBQ SCH ×4 (06:51→21:00)
[2019-04-13 07:43] LABS: BASOPHILS % (AUTO) 1.1 % (0.0-2.0); EOSINOPHILS % (AUTO) 2.3 % (0.0-3.0); HEMATOCRIT 36.6 % (42.0-52.0); LYMPHOCYTES % (AUTO) 29.6 % (20.0-45.0); MEAN CORPUSCULAR VOLUME 87 FL (80-99); MONOCYTES % (AUTO) 10.1 % (1.0-10.0); NEUTROPHILS % (AUTO) 56.9 % (45.0-75.0); PLATELET COUNT 163 K/UL (150-450); RED BLOOD COUNT 4.21 M/UL (4.70-6.10); RED CELL DISTRIBUTION WIDTH 13.5 % (11.6-14.8)
--- NOTE | 2019-04-13 07:48 | Cardiac Electrophysiology PN ---
Subjective Subjective Known to me from multiple prior hospitalization at [facility] and [facility]. No [place] Cath negative last year. Will interrogate his pacer [id number] Objective Last 24 Hour Vital Signs Date Time Temp Pulse Resp B/P (MAP) Pulse Ox O2 Delivery O2 Flow Rate FiO2 04/13/19 04:00 60 04/13/19 04:00 97.8 72 16 109/72 (84) 96 04/13/19 00:00 62 04/13/19 00:00 97.9 68 16 118/71 (87) 97 04/12/19 21:00 Room Air 04/12/19 20:00 97.9 65 16 104/67 (79) 97 04/12/19 20:00 63 04/12/19 16:00 97.7 64 16 105/62 (76) 96 04/12/19 16:00 66 04/12/19 12:00 98.0 61 16 107/61 (76) 96 04/12/19 12:00 60 04/12/19 09:00 Room Air 04/12/19 08:00 97.8 66 20 126/77 (93) 98 04/12/19 08:00 69 Intake and Output 04/12/19 04/13/19 19:00 07:00 Intake Total 830 ml Output Total 400 ml Balance 430 ml Intake Oral 830 ml Output Urine Total 400 ml # Voids 1 4 Laboratory Tests Test 04/13/19 06:45 White Blood Count Pending Red Blood Count Pending Hemoglobin Pending Hematocrit Pending Mean Corpuscular Volume Pending Mean Corpuscular Hemoglobin Pending Mean Corpuscular Hemoglobin Concent Pending Red Cell Distribution Width Pending Platelet Count Pending Mean Platelet Volume Pending Neutrophils (%) (Auto) Pending Lymphocytes (%) (Auto) Pending Monocytes (%) (Auto) Pending Eosinophils (%) (Auto) Pending Basophils (%) (Auto) Pending Sodium Level Pending Potassium Level Pending Chloride Level Pending Carbon Dioxide Level Pending Blood Urea Nitrogen Pending Creatinine Pending Estimat Glomerular Filtration Rate Pending Glucose Level Pending Calcium Level Pending Troponin I Pending Gato Zayas MD Apr 13, 2019 07:48
--- NOTE | 2019-04-13 07:48 | NUR ---
NURSE NOTES: Received report KOREY Ramos. Patient in bed resting, no active s/s cardiac, respiratory distress noticed at this time. Patient on room air, AOx4, SR with HR 60. IV on left upper arm 24G, asymptomatic, patent, intact. Bed in lowest position, side rails upx3, call light within reach. Will continue to monitor.
--- NOTE | 2019-04-13 07:48 | NUR ---
HAND-OFF: Report given to KOREY Marc. Plan of care endorsed.
[2019-04-13 08:00] VITALS: BP 107/72
[2019-04-13 08:28] LABS: ANION GAP 10 mmol/L (5-15); BLOOD UREA NITROGEN 15 mg/dL (7-18); CALCIUM 8.9 MG/DL (8.5-10.1); CARBON DIOXIDE 25 MMOL/L (21-32); CHLORIDE 108 MMOL/L (98-107); CREATININE 1.1 MG/DL (0.55-1.30); POTASSIUM 4.1 MMOL/L (3.5-5.1); SODIUM 143 MMOL/L (136-145)
[2019-04-13] MEDS: Cosopt Opth Soln 10 mL Btl BOTH EYES SCH ×2 (08:49→17:09)
[2019-04-13] MEDS: Eliquis 5mg tablet ORAL SCH ×2 (08:49→17:09)
[2019-04-13] MEDS: Brimonidine 0.2% Opth Sol BOTH EYES SCH ×3 (08:49→17:09)
[2019-04-13] MEDS: metFORMIN 500mg tab ORAL SCH ×2 (08:49→17:09)
[2019-04-13 12:00] VITALS: BP 103/52
[2019-04-13 16:00] VITALS: BP 104/56
--- NOTE | 2019-04-13 16:15 | Consultation ---
DATE OF CONSULTATION: 04/13/2019 CARDIOLOGY CONSULTATION CONSULTING PHYSICIAN: Gato Zaays M.D. REFERRING PHYSICIAN: Rik Montes M.D. REASON FOR CONSULTATION: Chest pain, evaluation of the patient's pacemaker. HISTORY OF PRESENT ILLNESS: The patient is a 64-year-old, gentleman, quite familiar from multiple previous hospitalization at [place] as well as [facility]. The patient has history of hypertension and pulmonary embolism in 2013, status post open embolectomy and also history of IVC filter. The patient has been on Eliquis. The patient also has history of stent and heart block and underwent a [facility] permanent pacemaker implantation in 2018 at [facility]. The patient presented to the emergency room complaining of chest pain and palpitation and Cardiology consultation was obtained for further evaluation and management. The patient stated that he was sitting on a couch when he felt that his heart was racing. He thought that his pacemaker maybe misfiring. The patient was admitted through the emergency room and a Cardiology consultation was obtained for further evaluation and management. REVIEW OF SYSTEMS: Negative other than what was mentioned in history of present illness. PAST MEDICAL HISTORY: 1. Hypertension. 2. Hyperlipidemia. 3. Diabetes. 4. History of pulmonary embolism, status post embolectomy via thoracotomy in 2012. 5. History of bradycardia, status post pacemaker. 6. Bilateral eye surgery. 7. Glaucoma. MEDICATIONS: Per reconciliation. ALLERGIES: He is allergic to iodine and Dilaudid. SOCIAL HISTORY: He is single, lives alone, does not smoke or drink alcohol. PHYSICAL EXAMINATION: VITAL SIGNS: Show blood pressure 109/72, pulse is 70, respirations 18, and he is afebrile. HEAD AND NECK: Showed no JVD or carotid bruits. LUNGS: Clear. CARDIOVASCULAR: Regular S1 and S2 with no gallop or murmur. ABDOMEN: Soft and nontender. EXTREMITIES: No pitting edema. Pacemaker in the left subclavian. LABORATORY AND DIAGNOSTIC DATA: His EKG showed sinus rhythm. His telemetry strip showed intermittent sinus rhythm and ventricularly paced rhythm. Labs show white count of 14.4, hemoglobin 12.4, hematocrit of 38, and platelet count is 197. Sodium is 142, potassium is 4.0, BUN of 17, creatinine 1.7, glucose of 189. Troponins are negative. Urine toxicology is negative. ASSESSMENT AND PLAN: 1. Chest pain. The pain is atypical. The patient already ruled out for myocardial infarction. The patient is already on chronic anticoagulation with Eliquis for his pulmonary embolism. The patient had multiple previous hospitalizations for chest pain including his hospitalization at [facility] in 2018 with negative cardiac catheterization at that time as well as hospitalization at Hospital in December of 2018 with negative troponins at that time as well. The patient will be treated at this time medically. 2. History of [facility] pacemaker implantation in 2018. We will interrogate the pacemaker for further evaluation. 3. Palpitation. The patient remained in sinus rhythm on telemetry. Watch him on telemetry at this time. 4. Pulmonary embolectomy for pulmonary embolism in 2012, currently on Eliquis 5 mg b.i.d. 5. Diabetes, on metformin. 6. Glaucoma. Thank you very much, Dr. Montes, for allowing me to participate in the care of this patient. Please do not hesitate to contact me for any questions regarding my evaluation. Sincerely, Gato Zayas M.D. DR: RAKESH JOB#: [id number] CC:
--- NOTE | 2019-04-13 16:40 | Internal Med Progress Note ---
Subjective Date of Service: Apr 13, 2019 Physician Name Charbel Serrato Attending Physician Rik Montes MD Current Medications Medications (Trade) Dose Ordered Sig/Kristan Route PRN Reason Start Time Stop Time Status Last Admin Dose Admin Acetaminophen (Tylenol) 650 mg Q4H PRN ORAL Mild Pain/Temp > 100.5 04/12/19 01:30 05/12/19 01:29 Apixaban (Eliquis) 5 mg BID ORAL 04/12/19 09:00 05/12/19 08:59 04/13/19 08:49 Atorvastatin Calcium (Lipitor) 10 mg DAILY ORAL 04/12/19 09:00 05/12/19 08:59 04/13/19 08:49 Brimonidine Tartrate (Alphagan) 1 drop TID BOTH EYES 04/12/19 09:00 05/12/19 08:59 04/13/19 13:27 Dextrose (Dextrose 50%) 25 ml Q30M PRN IV Hypoglycemia 04/12/19 01:15 05/12/19 01:14 Dextrose (Dextrose 50%) 50 ml Q30M PRN IV Hypoglycemia 04/12/19 01:15 05/12/19 01:14 Dorzolamide/ Timolol (Cosopt) 1 drop TWICE A DAY BOTH EYES 04/12/19 09:00 05/12/19 08:59 04/13/19 08:49 Finasteride (Proscar) 5 mg DAILY ORAL 04/12/19 09:00 05/12/19 08:59 04/13/19 08:49 Insulin Aspart (NovoLOG) Novolog Insulin BEFORE MEALS AND HS SUBQ 04/12/19 06:30 05/12/19 06:29 04/13/19 11:47 Latanoprost (Xalatan) 1 drop BEDTIME BOTH EYES 04/12/19 21:00 05/12/19 20:59 04/12/19 20:44 Metformin HCl (Glucophage) 500 mg TWICE A DAY ORAL 04/12/19 09:00 05/12/19 08:59 04/13/19 08:49 Morphine Sulfate (Morphine Sulfate) 2 mg Q6H PRN IVP Severe Pain (Pain Scale 7-10) 04/12/19 08:15 04/19/19 08:14 04/13/19 11:43 Nitroglycerin (Ntg) 0.4 mg Q5M PRN SL Prn Chest Pain 04/12/19 01:30 05/12/19 01:29 Ondansetron HCl (Zofran) 4 mg Q4H PRN IVP Nausea & Vomiting 04/12/19 01:30 05/12/19 01:29 04/13/19 11:52 Tamsulosin HCl (Flomax) 0.4 mg BEDTIME ORAL 04/12/19 21:00 05/12/19 20:59 04/12/19 22:16 Allergies: Coded Allergies: HYDROMORPHONE (Verified Adverse Reaction, Severe, "overwhelms him. can tolerate morphine", 03/01/14) HYDROCODONE (Verified Adverse Reaction, Intermediate, N/V, 10/08/15) Uncoded Allergies: CONTRAST DYE (Allergy, Unknown, 03/15/19) ROS Limited/Unobtainable: No Constitutional: Reports: no symptoms HEENT: Reports: no symptoms Cardiovascular: Reports: chest pain Respiratory: Reports: no symptoms Gastrointestinal/Abdominal: Reports: no symptoms Genitourinary: Reports: no symptoms Neurologic/Psychiatric: Reports: no symptoms Subjective 64 YO M admitted with chest pain and palpitations. Cover for Int Med-Dr Montes Objective Last Vital Signs Date Time Temp Pulse Resp B/P (MAP) Pulse Ox O2 Delivery O2 Flow Rate FiO2 04/13/19 16:00 97.2 63 18 104/56 (72) 98 04/13/19 09:00 Room Air Laboratory Tests Test 04/13/19 06:45 White Blood Count 7.0 K/UL (4.8-10.8) # Red Blood Count 4.21 M/UL (4.70-6.10) L Hemoglobin 12.0 G/DL (14.2-18.0) L Hematocrit 36.6 % (42.0-52.0) L Mean Corpuscular Volume 87 FL (80-99) Mean Corpuscular Hemoglobin 28.5 PG (27.0-31.0) Mean Corpuscular Hemoglobin Concent 32.8 G/DL (32.0-36.0) Red Cell Distribution Width 13.5 % (11.6-14.8) Platelet Count 163 K/UL (150-450) Mean Platelet Volume 9.3 FL (6.5-10.1) Neutrophils (%) (Auto) 56.9 % (45.0-75.0) Lymphocytes (%) (Auto) 29.6 % (20.0-45.0) Monocytes (%) (Auto) 10.1 % (1.0-10.0) H Eosinophils (%) (Auto) 2.3 % (0.0-3.0) Basophils (%) (Auto) 1.1 % (0.0-2.0) Sodium Level 143 MMOL/L (136-145) Potassium Level 4.1 MMOL/L (3.5-5.1) Chloride Level 108 MMOL/L (98-107) H Carbon Dioxide Level 25 MMOL/L (21-32) Anion Gap 10 mmol/L (5-15) Blood Urea Nitrogen 15 mg/dL (7-18) Creatinine 1.1 MG/DL (0.55-1.30) Estimat Glomerular Filtration Rate > 60 mL/min (>60) Glucose Level 146 MG/DL (74-106) H Calcium Level 8.9 MG/DL (8.5-10.1) Troponin I 0.000 ng/mL (0.000-0.056) Intake and Output 04/12/19 04/13/19 19:00 07:00 Intake Total 830 ml Output Total 400 ml Balance 430 ml Intake Oral 830 ml Output Urine Total 400 ml # Voids 1 4 Objective PHYSICAL EXAMINATION: GENERAL: The patient is a well-developed, well-nourished male, in no apparent distress. HEENT: Eyes, pupils equal and responsive to light and accommodation. Extraocular movements are intact. NECK: Supple without lymphadenopathy. CHEST: Lungs are clear to auscultation bilaterally without wheezes or rales. CARDIOVASCULAR: Regular rate. S1-S2 are normal without murmurs, rubs, or gallops. ABDOMEN: Soft, nontender, and nondistended. Positive bowel sounds. No evidence of hepatosplenomegaly. Currently, no rebound or guarding noted. EXTREMITIES: Negative for clubbing, cyanosis, or edema. RECTAL/GENITAL: Not performed. NEUROLOGIC: Cranial nerves II through XII are grossly intact without focal deficits. Motor strength is 5/5 bilaterally. Deep tendon reflexes are 2+ plantar. Assessment/Plan Assessment/Plan ASSESSMENT: This is a 64-year-old male with: 1. Chest pain. 2. Palpitation. 3. Tachycardia. 4. Diabetes type 2. 5. Hypercholesterolemia. 6. Glaucoma. 7. History of pulmonary embolism. TREATMENT: 1. Chest pain/palpitations. A Cardiology consultation has been obtained with Dr. Gato Zayas. We will follow recommendations of Cardiology. Pacemaker interrogation is pending. Serial troponin levels are negative. 2. Diabetes type 2. The patient has been started on a regular insulin sliding scale. 3. Hypercholesterolemia. Continue Lipitor as above 4. Glaucoma of bilateral eyes. Continue eye drops as above. 5. History of pulmonary embolism. Continue Eliquis as above. Charbel Serrato MD Apr 13, 2019 16:40
--- NOTE | 2019-04-13 16:54 | NUR ---
NURSE NOTES: Dr. Serrato at the nursing station, clarified with admission status. Per Dr. Serrato in-patient. Order noted, entered, carried out.
--- NOTE | 2019-04-13 19:19 | NUR ---
HAND-OFF: Report given to KOREY Ramos.
--- NOTE | 2019-04-13 19:19 | NUR ---
NURSE NOTES: Report received from KOREY Marc. Pt in bed resting, in no acute distress. Will continue plan of care.
[2019-04-13 20:00] VITALS: BP 101/63
--- NOTE | 2019-04-13 21:00 | NUR ---
NURSE NOTES: Pt complained as he wanted an IV immediately. I informed him I would begin but had some tasks that needed to be completed so I could come back. I was interrupted while trying and removed IV access kits to the med room until I was able to return. He called the supervisor mending and complained that we were not attending to him. I informed him I was busy with some patients requiring immediate attention. His IV was only to be used for IV access and no scheduled medications were due. Prior to receiving the patient, he had been given his pain medication. He continued to press the call light every 5 minutes to say "you know what I want, hurry up!" I returned to the room and tried to obtain IV access 3 times unsuccessfully. We called the ICU nurse to assist and try to obtain IV access. There was a lot of scar tissue so the IV catheters would not advance. Pt acknowledged that he has been pricked a lot in the past and has had PICC lines. ICU nurse was also unsuccessful in obtaining IV access. I called ED to see if a nurse was available to start an IV and was told they will come if available. IV is for pain medication only- no IV fluids are running and no scheduled procedures.
[2019-04-13] MEDS: Latanoprost 0.005% Opth 2.5ml Soln BOTH EYES SCH (21:49)
[2019-04-13] MEDS: Tamsulosin 0.4mg cap ORAL SCH (21:49)
--- NOTE | 2019-04-13 23:23 | NUR ---
NURSE NOTES: Report received from KOREY Ramos. Pt is in bed resting, in no acute distress. He is however unhappy as he wants a new IV and wants the old one removed. Will address pt needs as available. will continue plan of care.
--- NOTE | 2019-04-14 | NUR ---
NURSE NOTES: A nurse from ED came to obtain IV access and informed him she found a vein and could start an IV at that time. Pt refused as he did not want to be pricked at that time. He said "put a piece of tape on it" (to chemo the area where the vein is). The ED nurse told him she would likely be unavailable later in the shift and could only do it at that time. He repeated himself "put a piece of tape on it."
[2019-04-14 04:09] VITALS: BP 119/68
[2019-04-14] MEDS: NovoLOG Insulin Flexpen SUBQ SCH ×4 (06:30→21:00)
--- NOTE | 2019-04-14 06:50 | NUR ---
NURSE NOTES: At 0650, pt informed me he wanted the ED nurse from last night to come and start an IV now. I informed him that she was probably unavailable as we are changing shifts. He said , "that's fine, I just want to cover myself." He called ED at that time to give them his name as he wanted to inform them he "approves that they may start the IV." He earlier stated that he will complain to administration today because "things get done faster." That is also what he stated to the ED nurse that was willing to start the IV- that he intended to complain to management/administration anyway because people have not been listening to him to remove the old IV and that it hurts. I removed the IV earlier in the night as he said it was painful. I tried to attend to his needs, cleaned him area, clean linens.
--- NOTE | 2019-04-14 07:27 | NUR ---
HAND-OFF: Report given to KOREY Marc.
--- NOTE | 2019-04-14 07:42 | NUR ---
NURSE NOTES: Received report from KOREY Grigsby. Patient in bed resting, no active s/s cardiac, respiratory distress noticed at this time. Patient on room air, unhappy regarding IV. No IV at this time, informed will try ED, ICU nurse when they are available. Endorsed patient refused EKG last night, will try again. Bed in lowest position, side rails upx2, call light within reach.
[2019-04-14 07:58] LABS: BASOPHILS % (AUTO) 1.1 % (0.0-2.0); EOSINOPHILS % (AUTO) 2.6 % (0.0-3.0); HEMATOCRIT 39.2 % (42.0-52.0); HEMOGLOBIN 12.9 G/DL (14.2-18.0); LYMPHOCYTES % (AUTO) 19.1 % (20.0-45.0); MEAN CORPUSCULAR VOLUME 87 FL (80-99); MONOCYTES % (AUTO) 8.8 % (1.0-10.0); NEUTROPHILS % (AUTO) 68.4 % (45.0-75.0); PLATELET COUNT 178 K/UL (150-450); RED BLOOD COUNT 4.53 M/UL (4.70-6.10); RED CELL DISTRIBUTION WIDTH 13.1 % (11.6-14.8)
[2019-04-14 08:00] VITALS: BP 108/66
[2019-04-14] MEDS: Cosopt Opth Soln 10 mL Btl BOTH EYES SCH ×2 (08:50→17:38)
[2019-04-14] MEDS: Eliquis 5mg tablet ORAL SCH ×2 (08:51→17:38)
[2019-04-14] MEDS: Brimonidine 0.2% Opth Sol BOTH EYES SCH ×3 (08:51→17:38)
[2019-04-14] MEDS: metFORMIN 500mg tab ORAL SCH ×2 (08:51→17:38)
[2019-04-14 10:14] LABS: ANION GAP 14 mmol/L (5-15); BLOOD UREA NITROGEN 13 mg/dL (7-18); CARBON DIOXIDE 21 MMOL/L (21-32); CHLORIDE 106 MMOL/L (98-107); CREATININE 1.1 MG/DL (0.55-1.30); POTASSIUM 3.8 MMOL/L (3.5-5.1); SODIUM 141 MMOL/L (136-145)
--- NOTE | 2019-04-14 10:39 | NUR ---
CASE MANAGEMENT: INITIAL REVIEW 64 YR OLD MALE FROM HOME CC: CHEST PAIN SI:CHEST PAIN 98.4 104 16 136/77 95% RA WBC 20.3; Hgb 13.7; BG 146 IS: ASA PO X1 IV FENTANYL CITRATE X1 : 2E TELE UNIT CASE MANAGEMENT: REVIEW 04/12/19 SI:CHEST PAIN 97.8 66 20 126/77 98% RA WBC 14.4; H/H 12.4/38.1 IS: ELIQUIS PO BID LIPITOR PO QD PROSCAR PO QD METFORMIN PO Q12HR IV MORPHINE SULFATE Q6/PRN NOVOLOG SQ AC&HS : 2E TELE UNIT PLAN: PACEMAKER INTERROGATION PENDING CASE MANAGEMENT: REVIEW 04/13/19 SI:CHEST PAIN 97.0 67 18 107/72 100% RA RBC 4.21; H/H 12.0 / 36.6 IS: ELIQUIS PO BID LIPITOR PO QD PROSCAR PO QD METFORMIN PO Q12HR IV MORPHINE SULFATE Q6/PRN NOVOLOG SQ AC&HS : 2E TELE UNIT PLAN: PACEMAKER INTERROGATION PENDING CASE MANAGEMENT: REVIEW 04/14/19 SI:CHEST PAIN 97.0 67 18 107/72 100% RA RBC 4.53; H/H 12.9 / 39.2 IS: ELIQUIS PO BID LIPITOR PO QD PROSCAR PO QD METFORMIN PO Q12HR IV MORPHINE SULFATE Q6/PRN NOVOLOG SQ AC&HS : 2E TELE UNIT PLAN: PACEMAKER INTERROGATION PENDING
--- NOTE | 2019-04-14 10:50 | NUR ---
NURSE NOTES: Dr. Schmid at the nursing station, made aware of patient hard stick, unable to get IV access at this time. No further order given at this time. Will continue to monitor.
--- NOTE | 2019-04-14 11:08 | NUR ---
*- * NO INSURANCE INFORMATION IN THE BAR UNABLE TO SEND CLINICALS OR REVIEWS *-*
--- NOTE | 2019-04-14 11:21 | Pulmonology Progress Note ---
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 Subjective Interval Events: no new complains Constitutional: Reports: no symptoms HEENT: Repors: no symptoms Respiratory: Reports: no symptoms Allergies: Coded Allergies: HYDROMORPHONE (Verified Adverse Reaction, Severe, "overwhelms him. can tolerate morphine", 03/01/14) HYDROCODONE (Verified Adverse Reaction, Intermediate, N/V, 10/08/15) Uncoded Allergies: CONTRAST DYE (Allergy, Unknown, 03/15/19) Objective Last 24 Hour Vital Signs Date Time Temp Pulse Resp B/P (MAP) Pulse Ox O2 Delivery O2 Flow Rate FiO2 04/14/19 09:00 Room Air 04/14/19 08:00 67 04/14/19 08:00 97.6 68 20 108/66 (80) 100 04/14/19 04:09 98.1 72 19 119/68 (85) 99 04/14/19 04:08 65 04/14/19 00:00 61 04/13/19 21:00 Room Air 04/13/19 20:00 61 04/13/19 20:00 97.3 61 18 101/63 (76) 97 04/13/19 16:00 60 04/13/19 16:00 97.2 63 18 104/56 (72) 98 04/13/19 12:00 60 04/13/19 12:00 97.2 60 18 103/52 (69) 98 Intake and Output 04/13/19 04/14/19 19:00 07:00 Intake Total 720 ml Balance 720 ml Intake Oral 720 ml # Voids 2 2 General Appearance: WD/WN HEENT: normocephalic Respiratory/Chest: chest wall non-tender, lungs clear Cardiovascular: normal peripheral pulses, normal rate Abdomen: normal bowel sounds, soft, non tender Genitourinary: normal external genitalia Extremities: no cyanosis Skin: no lesions Neurologic/Psychiatric: fleet administrator II-XII grossly normal Laboratory Tests 04/14/19 07:15: White Blood Count 7.0, Red Blood Count 4.53L, Hemoglobin 12.9L, Hematocrit 39.2L , Mean Corpuscular Volume 87, Mean Corpuscular Hemoglobin 28.5, Mean Corpuscular Hemoglobin Concent 33.0, Red Cell Distribution Width 13.1, Platelet Count 178, Mean Platelet Volume 9.4, Neutrophils (%) (Auto) 68.4, Lymphocytes (% ) (Auto) 19.1L, Monocytes (%) (Auto) 8.8, Eosinophils (%) (Auto) 2.6, Basophils (%) (Auto) 1.1, Sodium Level 141, Potassium Level 3.8, Chloride Level 106, Carbon Dioxide Level 21, Anion Gap 14, Blood Urea Nitrogen 13, Creatinine 1.1, Estimat Glomerular Filtration Rate > 60, Glucose Level 143H, Calcium Level 9.0, Troponin I 0.000, Pro-B-Type Natriuretic Peptide 73 Current Medications Medications (Trade) Dose Ordered Sig/Kristan Route PRN Reason Start Time Stop Time Status Last Admin Dose Admin Acetaminophen (Tylenol) 650 mg Q4H PRN ORAL Mild Pain/Temp > 100.5 04/12/19 01:30 05/12/19 01:29 Apixaban (Eliquis) 5 mg BID ORAL 04/12/19 09:00 05/12/19 08:59 04/14/19 08:51 Atorvastatin Calcium (Lipitor) 10 mg DAILY ORAL 04/12/19 09:00 05/12/19 08:59 04/14/19 08:51 Brimonidine Tartrate (Alphagan) 1 drop TID BOTH EYES 04/12/19 09:00 05/12/19 08:59 04/14/19 08:51 Dextrose (Dextrose 50%) 25 ml Q30M PRN IV Hypoglycemia 04/12/19 01:15 05/12/19 01:14 Dextrose (Dextrose 50%) 50 ml Q30M PRN IV Hypoglycemia 04/12/19 01:15 05/12/19 01:14 Dorzolamide/ Timolol (Cosopt) 1 drop TWICE A DAY BOTH EYES 04/12/19 09:00 05/12/19 08:59 04/14/19 08:50 Finasteride (Proscar) 5 mg DAILY ORAL 04/12/19 09:00 05/12/19 08:59 04/14/19 08:51 Insulin Aspart (NovoLOG) Novolog Insulin BEFORE MEALS AND HS SUBQ 04/12/19 06:30 05/12/19 06:29 04/13/19 17:16 Latanoprost (Xalatan) 1 drop BEDTIME BOTH EYES 04/12/19 21:00 05/12/19 20:59 04/13/19 21:49 Metformin HCl (Glucophage) 500 mg TWICE A DAY ORAL 04/12/19 09:00 05/12/19 08:59 04/14/19 08:51 Morphine Sulfate (Morphine Sulfate) 2 mg Q6H PRN IVP Severe Pain (Pain Scale 7-10) 04/12/19 08:15 04/19/19 08:14 04/13/19 21:52 Nitroglycerin (Ntg) 0.4 mg Q5M PRN SL Prn Chest Pain 04/12/19 01:30 05/12/19 01:29 Ondansetron HCl (Zofran) 4 mg Q4H PRN IVP Nausea & Vomiting 04/12/19 01:30 05/12/19 01:29 04/13/19 11:52 Tamsulosin HCl (Flomax) 0.4 mg BEDTIME ORAL 04/12/19 21:00 05/12/19 20:59 04/13/19 21:49 Violet Schmid MD Apr 14, 2019 11:21
--- NOTE | 2019-04-14 11:30 | NUR ---
NURSE NOTES: Patient made aware of discharge order. Per patient will speak with his doctor, does not want to be discharged yet at this time. Will continue to monitor, CN made aware.
[2019-04-14 12:00] VITALS: BP 109/66
--- NOTE | 2019-04-14 13:00 | NUR ---
NURSE NOTES: database development project manager left message regarding patient refused to be discharged today, MD made aware. No new order given at this time. Will continue to monitor.
--- NOTE | 2019-04-14 13:24 | NUR ---
DISCHARGE PLANNING: PATIENT HAS APPEALED DISCHARGE AND HAS CONTACTED [facility] REFERENCE NUMBER: [id number] WAIT FOR DETERMINATION
--- NOTE | 2019-04-14 13:46 | CDS Physician Query ---
Clarification is required for compliance, coding accuracy, and to reflect severity of illness for this patient Dear Dr. Barger More Date 04/14/2019 Thread Pulling Machine Attendant/CDS' Name Amelie Hayward Clinical Documentation states: 04/13 note: 64-year-old male with...Chest pain/palpitations...Pacemaker interrogation is pending. Serial troponin levels are negative. Cardiology consultation 04/13: Chest pain. The pain is atypical. The patient already ruled out for myocardial infarction. The patient is already on chronic anticoagulation with Eliquis for his pulmonary embolism...The patient will be treated at this time medically. Please document the suspected etiology of Chest Pain: [] Aortic dissection [] Acute myocardial infarction [] Acute Coronary Syndrome [] Pericarditis [] Anxiety [] Cancer [] Pneumonia [] Costochondritis [] Pneumothorax [] GERD/Esophagitis [] Pulmonary embolism [] Postherpetic neuralgia [] Other: [X] Unable to determine Present on Admission: [X] Yes [] No [] Clinically Undetermined Physician signature Date Please also document in your Progress Notes and/or Discharge Summary and indicate if the condition was present on admission. KAROLD
--- NOTE | 2019-04-14 13:51 | Internal Med Progress Note ---
Subjective Date of Service: Apr 14, 2019 Physician Name Charbel Serrato Attending Physician Rik Montes MD Current Medications Medications (Trade) Dose Ordered Sig/Kristan Route PRN Reason Start Time Stop Time Status Last Admin Dose Admin Acetaminophen (Tylenol) 650 mg Q4H PRN ORAL Mild Pain/Temp > 100.5 04/12/19 01:30 05/12/19 01:29 Apixaban (Eliquis) 5 mg BID ORAL 04/12/19 09:00 05/12/19 08:59 04/14/19 08:51 Atorvastatin Calcium (Lipitor) 10 mg DAILY ORAL 04/12/19 09:00 05/12/19 08:59 04/14/19 08:51 Brimonidine Tartrate (Alphagan) 1 drop TID BOTH EYES 04/12/19 09:00 05/12/19 08:59 04/14/19 13:43 Dextrose (Dextrose 50%) 25 ml Q30M PRN IV Hypoglycemia 04/12/19 01:15 05/12/19 01:14 Dextrose (Dextrose 50%) 50 ml Q30M PRN IV Hypoglycemia 04/12/19 01:15 05/12/19 01:14 Dorzolamide/ Timolol (Cosopt) 1 drop TWICE A DAY BOTH EYES 04/12/19 09:00 05/12/19 08:59 04/14/19 08:50 Finasteride (Proscar) 5 mg DAILY ORAL 04/12/19 09:00 05/12/19 08:59 04/14/19 08:51 Insulin Aspart (NovoLOG) Novolog Insulin BEFORE MEALS AND HS SUBQ 04/12/19 06:30 05/12/19 06:29 04/13/19 17:16 Latanoprost (Xalatan) 1 drop BEDTIME BOTH EYES 04/12/19 21:00 05/12/19 20:59 04/13/19 21:49 Metformin HCl (Glucophage) 500 mg TWICE A DAY ORAL 04/12/19 09:00 05/12/19 08:59 04/14/19 08:51 Morphine Sulfate (Morphine Sulfate) 2 mg Q6H PRN IVP Severe Pain (Pain Scale 7-10) 04/12/19 08:15 04/19/19 08:14 04/13/19 21:52 Nitroglycerin (Ntg) 0.4 mg Q5M PRN SL Prn Chest Pain 04/12/19 01:30 05/12/19 01:29 Ondansetron HCl (Zofran) 4 mg Q4H PRN IVP Nausea & Vomiting 04/12/19 01:30 05/12/19 01:29 04/13/19 11:52 Tamsulosin HCl (Flomax) 0.4 mg BEDTIME ORAL 04/12/19 21:00 05/12/19 20:59 04/13/19 21:49 Allergies: Coded Allergies: HYDROMORPHONE (Verified Adverse Reaction, Severe, "overwhelms him. can tolerate morphine", 03/01/14) HYDROCODONE (Verified Adverse Reaction, Intermediate, N/V, 10/08/15) Uncoded Allergies: CONTRAST DYE (Allergy, Unknown, 03/15/19) ROS Limited/Unobtainable: No Constitutional: Reports: no symptoms HEENT: Reports: no symptoms Cardiovascular: Reports: chest pain Respiratory: Reports: no symptoms Gastrointestinal/Abdominal: Reports: no symptoms Genitourinary: Reports: no symptoms Neurologic/Psychiatric: Reports: no symptoms Subjective 64 YO M admitted with chest pain and palpitations. Cover for Int Med-Dr oMntes Objective Last Vital Signs Date Time Temp Pulse Resp B/P (MAP) Pulse Ox O2 Delivery O2 Flow Rate FiO2 04/14/19 12:00 63 04/14/19 12:00 97.4 18 109/66 (80) 99 04/14/19 09:00 Room Air Laboratory Tests Test 04/14/19 07:15 White Blood Count 7.0 K/UL (4.8-10.8) Red Blood Count 4.53 M/UL (4.70-6.10) L Hemoglobin 12.9 G/DL (14.2-18.0) L Hematocrit 39.2 % (42.0-52.0) L Mean Corpuscular Volume 87 FL (80-99) Mean Corpuscular Hemoglobin 28.5 PG (27.0-31.0) Mean Corpuscular Hemoglobin Concent 33.0 G/DL (32.0-36.0) Red Cell Distribution Width 13.1 % (11.6-14.8) Platelet Count 178 K/UL (150-450) Mean Platelet Volume 9.4 FL (6.5-10.1) Neutrophils (%) (Auto) 68.4 % (45.0-75.0) Lymphocytes (%) (Auto) 19.1 % (20.0-45.0) L Monocytes (%) (Auto) 8.8 % (1.0-10.0) Eosinophils (%) (Auto) 2.6 % (0.0-3.0) Basophils (%) (Auto) 1.1 % (0.0-2.0) Sodium Level 141 MMOL/L (136-145) Potassium Level 3.8 MMOL/L (3.5-5.1) Chloride Level 106 MMOL/L (98-107) Carbon Dioxide Level 21 MMOL/L (21-32) Anion Gap 14 mmol/L (5-15) Blood Urea Nitrogen 13 mg/dL (7-18) Creatinine 1.1 MG/DL (0.55-1.30) Estimat Glomerular Filtration Rate > 60 mL/min (>60) Glucose Level 143 MG/DL (74-106) H Calcium Level 9.0 MG/DL (8.5-10.1) Troponin I 0.000 ng/mL (0.000-0.056) Pro-B-Type Natriuretic Peptide 73 pg/mL (0-125) Intake and Output 04/13/19 04/14/19 19:00 07:00 Intake Total 720 ml Balance 720 ml Intake Oral 720 ml # Voids 2 2 Objective PHYSICAL EXAMINATION: GENERAL: The patient is a well-developed, well-nourished male, in no apparent distress. HEENT: Eyes, pupils equal and responsive to light and accommodation. Extraocular movements are intact. NECK: Supple without lymphadenopathy. CHEST: Lungs are clear to auscultation bilaterally without wheezes or rales. CARDIOVASCULAR: Regular rate. S1-S2 are normal without murmurs, rubs, or gallops. ABDOMEN: Soft, nontender, and nondistended. Positive bowel sounds. No evidence of hepatosplenomegaly. Currently, no rebound or guarding noted. EXTREMITIES: Negative for clubbing, cyanosis, or edema. RECTAL/GENITAL: Not performed. NEUROLOGIC: Cranial nerves II through XII are grossly intact without focal deficits. Motor strength is 5/5 bilaterally. Deep tendon reflexes are 2+ plantar. Assessment/Plan Assessment/Plan ASSESSMENT: This is a 64-year-old male with: 1. Chest pain. 2. Palpitation. 3. Tachycardia. 4. Diabetes type 2. 5. Hypercholesterolemia. 6. Glaucoma. 7. History of pulmonary embolism. TREATMENT: 1. Chest pain/palpitations. A Cardiology consultation has been obtained with Dr. Gato Zayas. We will follow recommendations of Cardiology. Pacemaker interrogation is pending. Serial troponin levels are negative. 2. Diabetes type 2. The patient has been started on a regular insulin sliding scale. 3. Hypercholesterolemia. Continue Lipitor as above 4. Glaucoma of bilateral eyes. Continue eye drops as above. 5. History of pulmonary embolism. Continue Eliquis as above. S/P IVC Charbel Serrato MD Apr 14, 2019 13:51
--- NOTE | 2019-04-14 15:13 | NUR ---
*-* INSURANCE *-* ALL AVAILABLE CLINICALS HAVE BEEN FAXED TO: NIR[facility] KEVINM: LILLIAM P: [phone] F: [phone]
[2019-04-14 16:00] VITALS: BP 120/69
--- NOTE | 2019-04-14 16:17 | NUR ---
NURSE NOTES: Dr. Zayas at the nursing station, made aware patient refusing to be discharged today, no IV at this time. Per Dr. Zayas no need of IV at this time. Will continue to monitor.
--- NOTE | 2019-04-14 16:20 | Cardiac Electrophysiology PN ---
Assessment/Plan Assessment/Plan 1. Chest pain. The pain is atypical. The patient already ruled out for myocardial infarction. The patient is already on chronic anticoagulation with Eliquis for his pulmonary embolism. The patient had multiple previous hospitalizations for chest pain including his hospitalization at [facility] in 2019 with negative cardiac catheterization at that time as well as hospitalization at [facility] in December of 2018 with negative troponins at that time as well. The patient will be treated at this time medically. 2. History of [facility] pacemaker implantation in 2018. Interrogated and showed Nl Fx 3. Palpitation. The patient remained in sinus rhythm on telemetry. No SVt or VT by pacer check 4. S/P open Pulmonary embolectomy for pulmonary embolism in 2012, currently on Eliquis 5 mg b.i.d. 5. Diabetes, on metformin. 6. Glaucoma. GLADYS RN OK to DC from cardiac stand point Subjective Subjective Sleeping in NAD. Appealed discharge. Pacer interrogation showed Nl Fx. Refused ECG Objective Last 24 Hour Vital Signs Date Time Temp Pulse Resp B/P (MAP) Pulse Ox O2 Delivery O2 Flow Rate FiO2 04/14/19 12:00 63 04/14/19 12:00 97.4 60 18 109/66 (80) 99 04/14/19 09:00 Room Air 04/14/19 08:00 67 04/14/19 08:00 97.6 68 20 108/66 (80) 100 04/14/19 04:09 98.1 72 19 119/68 (85) 99 04/14/19 04:08 65 04/14/19 00:00 61 04/13/19 21:00 Room Air 04/13/19 20:00 61 04/13/19 20:00 97.3 61 18 101/63 (76) 97 Intake and Output 04/13/19 04/14/19 19:00 07:00 Intake Total 720 ml Balance 720 ml Intake Oral 720 ml # Voids 2 2 Laboratory Tests Test 04/14/19 07:15 White Blood Count 7.0 K/UL (4.8-10.8) Red Blood Count 4.53 M/UL (4.70-6.10) L Hemoglobin 12.9 G/DL (14.2-18.0) L Hematocrit 39.2 % (42.0-52.0) L Mean Corpuscular Volume 87 FL (80-99) Mean Corpuscular Hemoglobin 28.5 PG (27.0-31.0) Mean Corpuscular Hemoglobin Concent 33.0 G/DL (32.0-36.0) Red Cell Distribution Width 13.1 % (11.6-14.8) Platelet Count 178 K/UL (150-450) Mean Platelet Volume 9.4 FL (6.5-10.1) Neutrophils (%) (Auto) 68.4 % (45.0-75.0) Lymphocytes (%) (Auto) 19.1 % (20.0-45.0) L Monocytes (%) (Auto) 8.8 % (1.0-10.0) Eosinophils (%) (Auto) 2.6 % (0.0-3.0) Basophils (%) (Auto) 1.1 % (0.0-2.0) Sodium Level 141 MMOL/L (136-145) Potassium Level 3.8 MMOL/L (3.5-5.1) Chloride Level 106 MMOL/L (98-107) Carbon Dioxide Level 21 MMOL/L (21-32) Anion Gap 14 mmol/L (5-15) Blood Urea Nitrogen 13 mg/dL (7-18) Creatinine 1.1 MG/DL (0.55-1.30) Estimat Glomerular Filtration Rate > 60 mL/min (>60) Glucose Level 143 MG/DL (74-106) H Calcium Level 9.0 MG/DL (8.5-10.1) Troponin I 0.000 ng/mL (0.000-0.056) Pro-B-Type Natriuretic Peptide 73 pg/mL (0-125) Objective HEAD AND NECK: No JVD or carotid bruits. LUNGS: Clear. CARDIOVASCULAR: Regular S1 and S2 with no gallop or murmur. ABDOMEN: Soft and nontender. EXTREMITIES: No pitting edema. Pacemaker in the left subclavian. Gato Zayas MD Apr 14, 2019 16:20
--- NOTE | 2019-04-14 16:35 | NUR ---
*-* CASE MANAGEMENT *-* PATIENT FILED AN MEDICARE APPEAL: [id number] ALL MEDICAL RECORDS FOR PATIENT HAS BEEN FAXED TO: TORRI F: [phone]
--- NOTE | 2019-04-14 18:43 | NUR ---
NURSE NOTES: Dr. Schmid made aware patient has appealed discharge, and patient cleared from cardiology stand point. Per Dr[facility] Schmid[facility] Order noted, entered, carried out. CN made aware.
--- NOTE | 2019-04-14 18:45 | NUR ---
NURSE NOTES: Patient called, requesting for fruit plate. Called nutrition for fruit plate. A cup of fruit got delivered. Patient stepped out to the nursing station, stated "Don't play with me, it is not fruit plate its fruit cup".
--- NOTE | 2019-04-14 19:40 | NUR ---
HAND-OFF: Report given to KOREY Parks.
--- NOTE | 2019-04-14 19:45 | NUR ---
NURSE NOTES: Received patient from KOREY Marc. Patient alert, talkative, and no signs of distress or pain noted. Patient able to make needs known and patient is ambulatory with a steady gait. No IV site, doctor aware. Bed in lowest position, brakes on, side rails up x3, and call light within reach. Will continue with plan of care.
[2019-04-14 20:00] VITALS: BP 109/61
--- NOTE | 2019-04-14 20:00 | NUR ---
NURSE NOTES: [facility], charge nurse aware. Patient taken off of tele box and tolerated well. Will continue to monitor.
[2019-04-14] MEDS: Tamsulosin 0.4mg cap ORAL SCH (21:20)
[2019-04-14] MEDS: Latanoprost 0.005% Opth 2.5ml Soln BOTH EYES SCH (21:20)
[2019-04-15] VITALS: BP 139/76
[2019-04-15] MEDS: NovoLOG Insulin Flexpen SUBQ SCH ×4 (06:02→21:00)
--- NOTE | 2019-04-15 06:53 | NUR ---
NURSE NOTES: Received report from KOREY Parks. Pt in bed, awake, talkative, no complaints of pain, no apparent distress noted, dental laboratory worker at bedside drawing AM labs, bed in lowest position, call light within reach.
--- NOTE | 2019-04-15 07:10 | NUR ---
HAND-OFF: Report given to KOREY Soni. Plan of care endorsed.
[2019-04-15 07:29] LABS: EOSINOPHILS % (AUTO) 3.4 % (0.0-3.0); HEMATOCRIT 39.6 % (42.0-52.0); HEMOGLOBIN 12.9 G/DL (14.2-18.0); LYMPHOCYTES % (AUTO) 21.7 % (20.0-45.0); MEAN CORPUSCULAR VOLUME 86 FL (80-99); MONOCYTES % (AUTO) 9.5 % (1.0-10.0); NEUTROPHILS % (AUTO) 64.5 % (45.0-75.0); PLATELET COUNT 179 K/UL (150-450); RED CELL DISTRIBUTION WIDTH 13.1 % (11.6-14.8)
[2019-04-15 07:40] LABS: ANION GAP 9 mmol/L (5-15); BLOOD UREA NITROGEN 14 mg/dL (7-18); CALCIUM 8.8 MG/DL (8.5-10.1); CARBON DIOXIDE 24 MMOL/L (21-32); CHLORIDE 107 MMOL/L (98-107); CREATININE 1.1 MG/DL (0.55-1.30); POTASSIUM 3.9 MMOL/L (3.5-5.1); SODIUM 140 MMOL/L (136-145)
[2019-04-15 08:00] VITALS: BP 111/77
[2019-04-15] MEDS: metFORMIN 500mg tab ORAL SCH ×2 (08:30→18:03)
[2019-04-15] MEDS: Eliquis 5mg tablet ORAL SCH ×2 (08:30→18:03)
[2019-04-15] MEDS: Cosopt Opth Soln 10 mL Btl BOTH EYES SCH ×2 (08:31→18:03)
[2019-04-15] MEDS: Brimonidine 0.2% Opth Sol BOTH EYES SCH ×3 (08:31→18:03)
--- NOTE | 2019-04-15 10:33 | NUR ---
CASE MANAGEMENT: REVIEW 04/15/19 SI:CHEST PAIN 97.3 68 18 111/77 96% RA RBC 4.53; H/H 12.9 / 39.2 IS: ELIQUIS PO BID LIPITOR PO QD PROSCAR PO QD METFORMIN PO Q12HR IV MORPHINE SULFATE Q6/PRN NOVOLOG SQ AC&HS : 2E TELE UNIT PLAN: RETURN HOME
--- NOTE | 2019-04-15 11:16 | Cardiac Electrophysiology PN ---
Assessment/Plan Assessment/Plan 1. Atypical chest pain. Ruled out for myocardial infarction. The patient is already on chronic anticoagulation with Eliquis for his pulmonary embolism. The patient had multiple previous hospitalizations for chest pain including his hospitalization at [facility] in 2019 with negative cardiac catheterization at that time as well as hospitalization at [facility] in December of 2018 with negative troponins at that time as well. The patient will be treated at this time medically. 2. History of [facility] pacemaker implantation in 2018. Interrogated and showed Nl Fx 3. Palpitation. The patient remained in sinus rhythm on telemetry. No SVt or VT by pacer check 4. S/P open Pulmonary embolectomy for pulmonary embolism in 2012, currently on Eliquis 5 mg b.i.d. 5. Diabetes, on metformin. 6. Glaucoma. DW RN OK to DC from cardiac stand point Subjective Subjective Appealed discharge. Pacer interrogation showed Nl Fx. Refused ECG. RN at bedside Objective Last 24 Hour Vital Signs Date Time Temp Pulse Resp B/P (MAP) Pulse Ox O2 Delivery O2 Flow Rate FiO2 04/15/19 08:34 Room Air 04/15/19 08:00 97.3 68 18 111/77 (88) 96 04/15/19 00:00 97.4 67 18 139/76 (97) 99 04/14/19 21:00 Room Air 04/14/19 20:00 97.4 65 18 109/61 (77) 96 04/14/19 16:00 97.7 68 20 120/69 (86) 97 04/14/19 16:00 63 04/14/19 12:00 63 04/14/19 12:00 97.4 60 18 109/66 (80) 99 Intake and Output 04/14/19 04/15/19 19:00 07:00 Intake Total 480 ml 360 ml Balance 480 ml 360 ml Intake Oral 480 ml 360 ml # Voids 3 3 Laboratory Tests Test 04/15/19 07:00 White Blood Count 7.0 K/UL (4.8-10.8) Red Blood Count 4.60 M/UL (4.70-6.10) L Hemoglobin 12.9 G/DL (14.2-18.0) L Hematocrit 39.6 % (42.0-52.0) L Mean Corpuscular Volume 86 FL (80-99) Mean Corpuscular Hemoglobin 28.2 PG (27.0-31.0) Mean Corpuscular Hemoglobin Concent 32.7 G/DL (32.0-36.0) Red Cell Distribution Width 13.1 % (11.6-14.8) Platelet Count 179 K/UL (150-450) Mean Platelet Volume 9.2 FL (6.5-10.1) Neutrophils (%) (Auto) 64.5 % (45.0-75.0) Lymphocytes (%) (Auto) 21.7 % (20.0-45.0) Monocytes (%) (Auto) 9.5 % (1.0-10.0) Eosinophils (%) (Auto) 3.4 % (0.0-3.0) H Basophils (%) (Auto) 1.0 % (0.0-2.0) Sodium Level 140 MMOL/L (136-145) Potassium Level 3.9 MMOL/L (3.5-5.1) Chloride Level 107 MMOL/L (98-107) Carbon Dioxide Level 24 MMOL/L (21-32) Anion Gap 9 mmol/L (5-15) Blood Urea Nitrogen 14 mg/dL (7-18) Creatinine 1.1 MG/DL (0.55-1.30) Estimat Glomerular Filtration Rate > 60 mL/min (>60) Glucose Level 133 MG/DL (74-106) H Calcium Level 8.8 MG/DL (8.5-10.1) Objective HEAD AND NECK: No JVD or carotid bruits. LUNGS: Clear. CARDIOVASCULAR: Regular S1 and S2 with no gallop or murmur. ABDOMEN: Soft and nontender. EXTREMITIES: No pitting edema. Pacemaker in the left subclavian. Gato Zayas MD Apr 15, 2019 11:16
[2019-04-15 11:44] VITALS: BP 132/87
--- NOTE | 2019-04-15 11:48 | Pulmonology Progress Note ---
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 Subjective ROS Limited/Unobtainable: No Constitutional: Reports: no symptoms HEENT: Repors: no symptoms Respiratory: Reports: no symptoms Allergies: Coded Allergies: HYDROMORPHONE (Verified Adverse Reaction, Severe, "overwhelms him. can tolerate morphine", 03/01/14) HYDROCODONE (Verified Adverse Reaction, Intermediate, N/V, 10/08/15) Uncoded Allergies: CONTRAST DYE (Allergy, Unknown, 03/15/19) Objective Last 24 Hour Vital Signs Date Time Temp Pulse Resp B/P (MAP) Pulse Ox O2 Delivery O2 Flow Rate FiO2 04/15/19 11:44 97.8 74 20 132/87 (102) 99 04/15/19 08:34 Room Air 04/15/19 08:00 97.3 68 18 111/77 (88) 96 04/15/19 00:00 97.4 67 18 139/76 (97) 99 04/14/19 21:00 Room Air 04/14/19 20:00 97.4 65 18 109/61 (77) 96 04/14/19 16:00 97.7 68 20 120/69 (86) 97 04/14/19 16:00 63 04/14/19 12:00 63 04/14/19 12:00 97.4 60 18 109/66 (80) 99 Intake and Output 04/14/19 04/15/19 19:00 07:00 Intake Total 480 ml 360 ml Balance 480 ml 360 ml Intake Oral 480 ml 360 ml # Voids 3 3 General Appearance: WD/WN HEENT: normocephalic Respiratory/Chest: chest wall non-tender, lungs clear Cardiovascular: normal peripheral pulses, normal rate Abdomen: normal bowel sounds, soft, non tender Genitourinary: normal external genitalia Extremities: no cyanosis Skin: no lesions Neurologic/Psychiatric: python java 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 II-XII grossly normal, no motor/sensory deficits Lymphatic: no neck adenopathy Musculoskeletal: normal muscle bulk Laboratory Tests 04/15/19 07:00: White Blood Count 7.0, Red Blood Count 4.60L, Hemoglobin 12.9L, Hematocrit 39.6L , Mean Corpuscular Volume 86, Mean Corpuscular Hemoglobin 28.2, Mean Corpuscular Hemoglobin Concent 32.7, Red Cell Distribution Width 13.1, Platelet Count 179, Mean Platelet Volume 9.2, Neutrophils (%) (Auto) 64.5, Lymphocytes (% ) (Auto) 21.7, Monocytes (%) (Auto) 9.5, Eosinophils (%) (Auto) 3.4H, Basophils (%) (Auto) 1.0, Sodium Level 140, Potassium Level 3.9, Chloride Level 107, Carbon Dioxide Level 24, Anion Gap 9, Blood Urea Nitrogen 14, Creatinine 1.1, Estimat Glomerular Filtration Rate > 60, Glucose Level 133H, Calcium Level 8.8 Current Medications Medications (Trade) Dose Ordered Sig/Kristan Route PRN Reason Start Time Stop Time Status Last Admin Dose Admin Acetaminophen (Tylenol) 650 mg Q4H PRN ORAL Mild Pain/Temp > 100.5 04/12/19 01:30 05/12/19 01:29 04/15/19 00:02 Apixaban (Eliquis) 5 mg BID ORAL 04/12/19 09:00 05/12/19 08:59 04/15/19 08:30 Atorvastatin Calcium (Lipitor) 10 mg DAILY ORAL 04/12/19 09:00 05/12/19 08:59 04/15/19 08:29 Brimonidine Tartrate (Alphagan) 1 drop TID BOTH EYES 04/12/19 09:00 05/12/19 08:59 04/15/19 08:31 Dextrose (Dextrose 50%) 25 ml Q30M PRN IV Hypoglycemia 04/12/19 01:15 05/12/19 01:14 Dextrose (Dextrose 50%) 50 ml Q30M PRN IV Hypoglycemia 04/12/19 01:15 05/12/19 01:14 Dorzolamide/ Timolol (Cosopt) 1 drop TWICE A DAY BOTH EYES 04/12/19 09:00 05/12/19 08:59 04/15/19 08:31 Finasteride (Proscar) 5 mg DAILY ORAL 04/12/19 09:00 05/12/19 08:59 04/15/19 08:30 Insulin Aspart (NovoLOG) Novolog Insulin BEFORE MEALS AND HS SUBQ 04/12/19 06:30 05/12/19 06:29 04/13/19 17:16 Latanoprost (Xalatan) 1 drop BEDTIME BOTH EYES 04/12/19 21:00 05/12/19 20:59 04/14/19 21:20 Metformin HCl (Glucophage) 500 mg TWICE A DAY ORAL 04/12/19 09:00 05/12/19 08:59 04/15/19 08:30 Morphine Sulfate (Morphine Sulfate) 2 mg Q6H PRN IVP Severe Pain (Pain Scale 7-10) 04/12/19 08:15 04/19/19 08:14 04/13/19 21:52 Nitroglycerin (Ntg) 0.4 mg Q5M PRN SL Prn Chest Pain 04/12/19 01:30 05/12/19 01:29 Ondansetron HCl (Zofran) 4 mg Q4H PRN IVP Nausea & Vomiting 04/12/19 01:30 05/12/19 01:29 04/13/19 11:52 Tamsulosin HCl (Flomax) 0.4 mg BEDTIME ORAL 04/12/19 21:00 05/12/19 20:59 04/14/19 21:20 Violet Schmid MD Apr 15, 2019 11:48
--- NOTE | 2019-04-15 15:16 | NUR ---
*-* INSURANCE *-* ALL AVAILABLE CLINICALS HAVE BEEN FAXED TO: NIRU PALACIOS: LILLIAM P: [phone] F: [phone] RECEIVED A CALL TODAY AUSTIN VYAS SHE HAS BEEN RECEIVING CLINICALS AND HAS GIVEN ME AN AUTH VALID FOR DOS 04/11,,, & 2018 @[employer] AUTH# [id number]
[2019-04-15 15:42] VITALS: BP 106/64
--- NOTE | 2019-04-15 17:01 | Cardiology Report ---
APPROVED REPORT EKG Measurement Heart [id number] MI [id number] Normal sinus rhythm Possible Left atrial enlargement Borderline ECG
--- NOTE | 2019-04-15 17:24 | Internal Med Progress Note ---
Subjective Date of Service: Apr 15, 2019 Physician Name Charbel Serrato Attending Physician Rik Montes MD Current Medications Medications (Trade) Dose Ordered Sig/Kristan Route PRN Reason Start Time Stop Time Status Last Admin Dose Admin Acetaminophen (Tylenol) 650 mg Q4H PRN ORAL Mild Pain/Temp > 100.5 04/12/19 01:30 05/12/19 01:29 04/15/19 00:02 Apixaban (Eliquis) 5 mg BID ORAL 04/12/19 09:00 05/12/19 08:59 04/15/19 08:30 Atorvastatin Calcium (Lipitor) 10 mg DAILY ORAL 04/12/19 09:00 05/12/19 08:59 04/15/19 08:29 Brimonidine Tartrate (Alphagan) 1 drop TID BOTH EYES 04/12/19 09:00 05/12/19 08:59 04/15/19 12:00 Dextrose (Dextrose 50%) 25 ml Q30M PRN IV Hypoglycemia 04/12/19 01:15 05/12/19 01:14 Dextrose (Dextrose 50%) 50 ml Q30M PRN IV Hypoglycemia 04/12/19 01:15 05/12/19 01:14 Dorzolamide/ Timolol (Cosopt) 1 drop TWICE A DAY BOTH EYES 04/12/19 09:00 05/12/19 08:59 04/15/19 08:31 Finasteride (Proscar) 5 mg DAILY ORAL 04/12/19 09:00 05/12/19 08:59 04/15/19 08:30 Insulin Aspart (NovoLOG) Novolog Insulin BEFORE MEALS AND HS SUBQ 04/12/19 06:30 05/12/19 06:29 04/15/19 12:01 Latanoprost (Xalatan) 1 drop BEDTIME BOTH EYES 04/12/19 21:00 05/12/19 20:59 04/14/19 21:20 Metformin HCl (Glucophage) 500 mg TWICE A DAY ORAL 04/12/19 09:00 05/12/19 08:59 04/15/19 08:30 Morphine Sulfate (Morphine Sulfate) 2 mg Q6H PRN IVP Severe Pain (Pain Scale 7-10) 04/12/19 08:15 04/19/19 08:14 04/13/19 21:52 Nitroglycerin (Ntg) 0.4 mg Q5M PRN SL Prn Chest Pain 04/12/19 01:30 05/12/19 01:29 Ondansetron HCl (Zofran) 4 mg Q4H PRN IVP Nausea & Vomiting 04/12/19 01:30 05/12/19 01:29 04/13/19 11:52 Tamsulosin HCl (Flomax) 0.4 mg BEDTIME ORAL 04/12/19 21:00 05/12/19 20:59 04/14/19 21:20 Allergies: Coded Allergies: HYDROMORPHONE (Verified Adverse Reaction, Severe, "overwhelms him. can tolerate morphine", 03/01/14) HYDROCODONE (Verified Adverse Reaction, Intermediate, N/V, 10/08/15) Uncoded Allergies: CONTRAST DYE (Allergy, Unknown, 03/15/19) ROS Limited/Unobtainable: No Constitutional: Reports: no symptoms HEENT: Reports: no symptoms Cardiovascular: Reports: no symptoms Respiratory: Reports: no symptoms Gastrointestinal/Abdominal: Reports: no symptoms Genitourinary: Reports: no symptoms Neurologic/Psychiatric: Reports: no symptoms Subjective 64 YO M admitted with chest pain and palpitations. Cover for [facility]-Dr Montes. Await appeal of discharge with Medicare Objective Last Vital Signs Date Time Temp Pulse Resp B/P (MAP) Pulse Ox O2 Delivery O2 Flow Rate FiO2 04/15/19 15:42 97.6 82 18 106/64 (78) 98 04/15/19 08:34 Room Air Laboratory Tests Test 04/15/19 07:00 White Blood Count 7.0 K/UL (4.8-10.8) Red Blood Count 4.60 M/UL (4.70-6.10) L Hemoglobin 12.9 G/DL (14.2-18.0) L Hematocrit 39.6 % (42.0-52.0) L Mean Corpuscular Volume 86 FL (80-99) Mean Corpuscular Hemoglobin 28.2 PG (27.0-31.0) Mean Corpuscular Hemoglobin Concent 32.7 G/DL (32.0-36.0) Red Cell Distribution Width 13.1 % (11.6-14.8) Platelet Count 179 K/UL (150-450) Mean Platelet Volume 9.2 FL (6.5-10.1) Neutrophils (%) (Auto) 64.5 % (45.0-75.0) Lymphocytes (%) (Auto) 21.7 % (20.0-45.0) Monocytes (%) (Auto) 9.5 % (1.0-10.0) Eosinophils (%) (Auto) 3.4 % (0.0-3.0) H Basophils (%) (Auto) 1.0 % (0.0-2.0) Sodium Level 140 MMOL/L (136-145) Potassium Level 3.9 MMOL/L (3.5-5.1) Chloride Level 107 MMOL/L (98-107) Carbon Dioxide Level 24 MMOL/L (21-32) Anion Gap 9 mmol/L (5-15) Blood Urea Nitrogen 14 mg/dL (7-18) Creatinine 1.1 MG/DL (0.55-1.30) Estimat Glomerular Filtration Rate > 60 mL/min (>60) Glucose Level 133 MG/DL (74-106) H Calcium Level 8.8 MG/DL (8.5-10.1) Intake and Output 04/14/19 04/15/19 19:00 07:00 Intake Total 480 ml 360 ml Balance 480 ml 360 ml Intake Oral 480 ml 360 ml # Voids 3 3 Objective PHYSICAL EXAMINATION: GENERAL: The patient is a well-developed, well-nourished male, in no apparent distress. HEENT: Eyes, pupils equal and responsive to light and accommodation. Extraocular movements are intact. NECK: Supple without lymphadenopathy. CHEST: Lungs are clear to auscultation bilaterally without wheezes or rales. CARDIOVASCULAR: Regular rate. S1-S2 are normal without murmurs, rubs, or gallops. ABDOMEN: Soft, nontender, and nondistended. Positive bowel sounds. No evidence of hepatosplenomegaly. Currently, no rebound or guarding noted. EXTREMITIES: Negative for clubbing, cyanosis, or edema. RECTAL/GENITAL: Not performed. NEUROLOGIC: Cranial nerves II through XII are grossly intact without focal deficits. Motor strength is 5/5 bilaterally. Deep tendon reflexes are 2+ plantar. Assessment/Plan Assessment/Plan ASSESSMENT: This is a 64-year-old male with: 1. Chest pain. 2. Palpitation. 3. Tachycardia. 4. Diabetes type 2. 5. Hypercholesterolemia. 6. Glaucoma. 7. History of pulmonary embolism. TREATMENT: 1. Chest pain/palpitations. A Cardiology consultation has been obtained with Dr. Gato Zayas. We will follow recommendations of Cardiology. Pacemaker interrogation is pending. Serial troponin levels are negative. 2. Diabetes type 2. The patient has been started on a regular insulin sliding scale. 3. Hypercholesterolemia. Continue Lipitor as above 4. Glaucoma of bilateral eyes. Continue eye drops as above. 5. History of pulmonary embolism. Continue Eliquis as above. S/P IVC 6. Await appeal of discharge with Medicare Charbel Serrato MD Apr 15, 2019 17:24
--- NOTE | 2019-04-15 17:42 | NUR ---
NURSING NEWSPAPER ILLUSTRATOR NOTE: Spoke to patient about order to transfer to Med-Surg Unit (Patient has refused to move to another level of care since last evening when the order was written and is refusing telemetry monitoring). Stated "I didn't want to move because it was the middle of the night". I reassured him that we would be able to move him early evening today to avoid that issue. Patient then said that he would have to "call me back" after he "makes a couple of phone calls" to his family. Above communicated to primary nurse Nae and Charge Nurse
--- NOTE | 2019-04-15 19:32 | NUR ---
HAND-OFF: Report given to KOREY Ashton.
--- NOTE | 2019-04-15 19:33 | NUR ---
NURSE NOTES: Got report from Nae NAIR. Pt in stable condition. Denies any pain. No s/s of distress or discomfort noted. Pt resting in bed comfortably. Bed in low and locked position, call light within reach bedside table within reach. Continue to monitor.
[2019-04-15 20:00] VITALS: BP 116/69
[2019-04-15] MEDS: Latanoprost 0.005% Opth 2.5ml Soln BOTH EYES SCH (21:15)
[2019-04-15] MEDS: Tamsulosin 0.4mg cap ORAL SCH (21:15)
[2019-04-16] VITALS: BP 116/95
[2019-04-16] MEDS: NovoLOG Insulin Flexpen SUBQ SCH (06:30)
--- NOTE | 2019-04-16 07:00 | NUR ---
HAND-OFF: Report given to Janette NAIR. Endorsed plan of care.
--- NOTE | 2019-04-16 07:25 | NUR ---
NURSE NOTES: I received the patient awake and resting in bed. Patient alert and oriented x4. Patient does not display any signs of distress or SOB. Bed in the lowest position and call light within reach. I will continue to monitor the patient and implement care.
[2019-04-16 08:00] VITALS: BP 118/75
[2019-04-16] MEDS: Eliquis 5mg tablet ORAL SCH (08:33)
[2019-04-16] MEDS: Brimonidine 0.2% Opth Sol BOTH EYES SCH (08:33)
[2019-04-16] MEDS: metFORMIN 500mg tab ORAL SCH (08:33)
[2019-04-16] MEDS: Cosopt Opth Soln 10 mL Btl BOTH EYES SCH (08:33)
--- NOTE | 2019-04-16 10:25 | NUR ---
DISCHARGE PLANNING: APPEAL PATIENT HAS APPEALED DISCHARGE AND HAS CONTACTED TORRI WILD REFERENCE NUMBER: [id number] SPOKE TO TORRI PRESSURIZER BRYAN @[facility] WAIT FOR DETERMINATION AT THIS TIME
--- NOTE | 2019-04-16 10:37 | NUR ---
NURSE NOTES: Patient was discharged in stable condition. Patient confirmed he was in possession of all his belongings. Patient was given his discharge education and verbalized understanding to follow-up with his primary MD. Patient was in stable condition.
--- NOTE | 2019-04-16 14:43 | NUR ---
*-* INSURANCE *-* DISCHARGE SUMMARY HAS BEEN FAXED TO: NIRU KEVINM: LILLIAM P: [phone] F: [phone]
--- NOTE | 2019-04-17 12:08 | Discharge Summary ---
Discharge Summary Discharge Summary _ DATE OF ADMISSION: 04/11/2019 DATE OF DISCHARGE: 04/16/2019 DISCHARGED BY: Dr. Montes REASON FOR ADMISSION: 64 years old male with past medical history of hypertension, pulmonary emboli, hyperlipidemia, presented with shortness of breath chest tightness. Symptoms started about a hour and a half prior to arrival to the emergency department. Symptoms reported to be aggravated with exertion and alleviated with moderate severity but constant. Patient also reported some shortness of breath. No diaphoresis no nausea no fever or chills. Upon evaluation patient was slightly tachycardic otherwise was vital signs were stable. Laboratory work-up revealed WBC 20.3, hemoglobin 13.7 hematocrit 42.5 platelet count 252. Stable electrolytes. BUN 23, creatinine 1.5. Glucose 173. Stable LFT and lipase. Troponin negative. proBNP 120. EKG revealed a sinus rhythm no acute ischemic changes. Chest x-ray revealed no acute cardiopulmonary pathology. Urine toxicology screen was negative. Patient subsequently admitted for chest pain. CONSULTANTS: china decorator Dr. Ross financial services director Dr Schmid [facility] COURSE: Patient admitted to telemetry floor. Hydroelectric Mechanic and financial services director followed. Serial troponin were negative. EKG revealed no acute ischemic changes. Patient was ruled out for acute myocardial infarction. Patient has a recent echocardiogram on 03/16/19 , which revealed preserved ejection fraction of 55% and right ventricular systolic pressure for 29. No evidence of wall motion abnormality. Per china decorator, patient had atypical chest pain. Patient was on chronic anticoagulation with Eliquis 5 mg twice daily for pulmonary embolism , diagnosed in 2012. Hemoglobin and hematocrit remained stable. No evidence of bleeding. Patient had multiple prior hospitalization for chest pain with recent negative cardiac catheterization in 2019 at [facility] as well as recent hospitalization at [facility] with negative troponin. Interrogation of [employer] pacemaker, implanted in 2018, revealed normal functioning. Patient remained in sinus rhythm on telemetry , no SVT or VT by pacer check. Supplemental oxygen was on board as needed along with bronchodilator treatment. Pulse oximetry remained stable on room air. Antiplatelet therapy with aspirin and statin continued .. Blood sugar was managed with metformin and sliding scale of insulin as needed. Nitroglycerin was on board as needed. Flomax and Proscar continued. Eyedrops for glaucoma continued. Blood pressure was closely monitored, remained stable. Palpitations, chest discomfort and initial tachycardia resolved. Patient clinically stabilized and was ready for discharge home. FINAL DIAGNOSES: query Atypical chest pain [employer] pacemaker (implanted in 2018) Pulmonary embolism, s/p thoracotomy with embolectomy in 2012 Diabetes mellitus COPD Personality disorder Palpitations Glaucoma DISCHARGE MEDICATIONS: See Medication Reconciliation list. DISCHARGE INSTRUCTIONS: Patient was discharged home. Follow up with primary care provider in one week. I have been assigned to dictate discharge summary for this account. I was not involved in the patient's management. Angelica Prakash NP Apr 17, 2019 12:08
== END 2019-04-16 11:01 | disposition home or self-care (01) | DRG 313 ==
LOC: EMR 17:38 → EDBEDREQ 18:03 → 2E 18:58 → INTOOBSV 18:58 → OBSVTOIN 20:36 → EDBEDREQ 21:21
DX: R07.89 Other chest pain (principal); J44.9 Chronic obstructive pulmonary disease, unspecified; Z79.01 Long term (current) use of anticoagulants; Z88.6 Allergy status to analgesic agent; Z91.041 Radiographic dye allergy status; Z95.0 Presence of cardiac pacemaker; Z86.711 Personal history of pulmonary embolism; Z95.828 Presence of other vascular implants and grafts; H40.9 Unspecified glaucoma; E11.9 Type 2 diabetes mellitus without complications; Z79.84 Long term (current) use of oral hypoglycemic drugs; R00.2 Palpitations; R00.0 Tachycardia, unspecified; E78.00 Pure hypercholesterolemia, unspecified; F60.9 Personality disorder, unspecified
CPT/HCPCS: 36415; 71045; 80048; 80053; 80307; 82550; 82553; 82962; 83690; 83735; 83880; 84100; 84484; 85007; 85025; 85610; 85730; 93005; 96374; 96375; 99285; J1815; J2405

== ENCOUNTER 2019-04-29 17:58 | Observation (INO) | payer MEDICAID, OTHER ==
[~2019-04-29] VITALS: Ht 172.7 cm; Wt 88.5 kg
[2019-04-29 18:09] VITALS: BP 136/81
--- NOTE | 2019-04-29 18:09 | NUR ---
ED Nurse Note: Patient walked in to ER from home due to left sided chest pain started 45 min ago. Pt has pacemaker in left chest. No SOB. Breathing even and unlabored. Afebrile. Pt placed on monitor. VSS.
--- NOTE | 2019-04-29 18:15 | NUR ---
ED Nurse Note: IV line established. Blood collected and sent to lab.
[2019-04-29] MEDS ORDERED: Morphine Sulfate 2mg/ml Inj(IV/IM USE ONLY) IVP ONE (18:30)
[2019-04-29 18:43] LABS: BASOPHILS % (AUTO) 1.1 % (0.0-2.0); EOSINOPHILS % (AUTO) 1.9 % (0.0-3.0); HEMATOCRIT 44.2 % (42.0-52.0); HEMOGLOBIN 14.8 G/DL (14.2-18.0); LYMPHOCYTES % (AUTO) 15.4 % (20.0-45.0); MEAN CORPUSCULAR VOLUME 84 FL (80-99); MONOCYTES % (AUTO) 7.3 % (1.0-10.0); NEUTROPHILS % (AUTO) 74.3 % (45.0-75.0); PLATELET COUNT 208 K/UL (150-450); RED BLOOD COUNT 5.26 M/UL (4.70-6.10); RED CELL DISTRIBUTION WIDTH 12.1 % (11.6-14.8); WHITE BLOOD COUNT 10.5 K/UL (4.8-10.8)
[2019-04-29 18:54] LABS: ANION GAP 14 mmol/L (5-15); BLOOD UREA NITROGEN 19 mg/dL (7-18); CALCIUM 9.8 MG/DL (8.5-10.1); CARBON DIOXIDE 20 MMOL/L (21-32); CHLORIDE 103 MMOL/L (98-107); CREATININE 1.2 MG/DL (0.55-1.30); POTASSIUM 4.5 MMOL/L (3.5-5.1); SODIUM 137 MMOL/L (136-145)
[2019-04-29 19:05] LABS: ALANINE AMINOTRANSFERASE 20 U/L (12-78); ALKALINE PHOSPHATASE 75 U/L (46-116); ASPARTATE AMINO TRANSFERASE 21 U/L (15-37); BILIRUBIN,TOTAL 0.4 MG/DL (0.2-1.0)
--- NOTE | 2019-04-29 19:15 | NUR ---
HAND-OFF: Report given to Lida NAIR. Endorsed plan of care. No new further order at this time.
--- NOTE | 2019-04-29 19:15 | NUR ---
ED Nurse Note: RECEIVED REPORT FROM PATRICIA NAIR. PATIENT RESTING COMFORTABLY IN BED WITH NO ACUTE DISTRESS. VSS. PATIENT REPORTS PAIN AT 7/10; STATES PAIN IS TOLERABLE AND MEDICATION NOT NEEDED. PT AWARE OF PENDING ADMISSING. MRSA SWAB COLLECTED; REFUSED VRE SWAB.
[2019-04-29 19:45] VITALS: BP 133/77
[2019-04-29] MEDS ORDERED: Miralax 17gm pkt ORAL PRN (19:45)
[2019-04-29] MEDS ORDERED: dilTIAZem HCl 25mg/5ml Inj IV PRN (19:45)
[2019-04-29] MEDS ORDERED: Albuterol/Ipratropium 3ml neb HHN PRN (19:45)
[2019-04-29] MEDS ORDERED: Enalaprilat 2.5mg/2ml Inj IV PRN (19:45)
[2019-04-29] MEDS ORDERED: Nitroglycerin Subl 0.4mg tab SL PRN (19:45)
--- NOTE | 2019-04-29 20:27 | NUR ---
TRANSFER TO FLOOR: Patient transferred to [facility] 218-2 as ordered, per YOVANY RUIZ. Report given to SHAHLA NAIR. BELONGINGS SENT WITH PATIENT LIST COMPLETED WITH RECEIVING RN. PATIENT IN STABLE CONDITION
[2019-04-29 20:40] VITALS: BP 119/84
--- NOTE | 2019-04-29 20:40 | NUR ---
NURSE NOTES: Received pt from PIGMENT WEIGHER, Oli Clemons. Pt transported via gurney. Pt able to walk onto bed. AO x 4, tolerating room air, no c/o cp. Belongings list verified. cardiac monitor technician placed on patient. Iv site intact. Bed locked in lowest position, call light within reach.
--- NOTE | 2019-04-29 21:07 | Emergency Room Report ---
History of Present Illness General Chief Complaint: Chest Pain Source: Patient Present Illness HPI 64-year-old male presents ED complaining of chest pain. Started about 45 minutes ago. Midsternal, sharp, 7 out of 10, nonradiating. Lasted for a few minutes then subsided. Denies chest pain at this time. States he also had similar chest pain 3 days ago. States he has a pacemaker. Denies alcohol or drug use. No other aggravating relieving factors. Denies any other associated symptoms Allergies: Coded Allergies: HYDROMORPHONE (Verified Adverse Reaction, Severe, "overwhelms him. can tolerate morphine", 03/01/14) HYDROCODONE (Verified Adverse Reaction, Intermediate, N/V, 10/08/15) Uncoded Allergies: CONTRAST DYE (Allergy, Unknown, 03/15/19) Patient History Past Medical History: DM, COPD Past Surgical History: pacemaker Pertinent Family History: none Social History: Denies: smoking, alcohol use, drug use Immunizations: UTD Reviewed Nursing Documentation: PMH: Agreed; PSxH: Agreed Nursing Documentation-PMH Past Medical History: No History, Except For Hx Cardiac Problems: Yes - midline incision for removal blood clot post PE Hx Hypertension: No Hx Pacemaker: Yes - 2018 Hx Asthma: No Hx COPD: Yes Hx Diabetes: Yes Hx Cancer: No Hx Gastrointestinal Problems: No Hx Dialysis: No Hx Neurological Problems: No Hx Cerebrovascular Accident: No Hx Seizures: No Review of Systems All Other Systems: negative except mentioned in HPI Physical Exam Vital Signs Date Time Temp Pulse Resp B/P (MAP) Pulse Ox O2 Delivery O2 Flow Rate FiO2 04/29/19 18:04 98.6 98 16 136/81 (99) 98 Room Air Sp02 EP Interpretation: reviewed, normal General Appearance: no apparent distress, alert, GCS 15, non-toxic Head: normocephalic, atraumatic Eyes: bilateral eye normal inspection, bilateral eye PERRL ENT: hearing grossly normal, normal pharynx, no angioedema, normal voice Neck: full range of motion, supple/symm/no masses Respiratory: chest non-tender, lungs clear, normal breath sounds, speaking full sentences Cardiovascular #1: regular rate, rhythm, no edema Cardiovascular #2: 2+ carotid (R), 2+ carotid (L), 2+ radial (R), 2+ radial (L) , 2+ dorsalis pedis (R), 2+ dorsalis pedis (L) Gastrointestinal: normal bowel sounds, non tender, soft, non-distended, no guarding, no rebound Rectal: deferred Genitourinary: normal inspection, no CVA tenderness Musculoskeletal: back normal, gait/station normal, normal range of motion, non- tender Neurologic: alert, oriented x3, responsive, motor strength/tone normal, sensory intact, speech normal Psychiatric: judgement/insight normal, memory normal, mood/affect normal, no suicidal/homicidal ideation Reflexes: 3+ bicep (R), 3+ bicep (L), 3+ tricep (R), 3+ tricep (L), 3+ knee (R) , 3+ knee (L) Lymphatic: no adenopathy Medical Decision Making Diagnostic Impression: Primary Impression: Chest pain Qualified Codes: R07.9 - Chest pain, unspecified ER Course Hospital Course 64 yo M presents to ED c/o chest pain. Differential diagnoses include: IA/unstable angina, contusion, muscle strain, PTX, rib fracture Clinical course Patient placed on stretcher. on manager cardiac cath. After initial history and physical I ordered labs, EKG, chest x-ray, morphine labs reviewed- no leukocytosis, hb/hct stable, electrolytes ok, trop negative EKG - NSR, no acute ischemic changes interpreted by me Chest x-ray- sternotomy wires, pacemaker. no acute process I reviewed EMR. On previous hospitalization patient evaluated by cardiology. Noted chest pain to be atypical. Pacemaker was interrogated at that time. I discussed these findings with the patient. Given negative troponin I believe patient could be discharged however patient was insistent on being admitted. Discussed with PMD there is concern for opioid use. I discussed with patient that we will admit for observation. Patient can get VQ scan in a.m. However patient is aware that he will not receive any narcotic medications. Patient agrees Case discussed with Dr. Montes and he agreed to accept the patient to his service for further care and support I. I feel this is a highly complex case requiring extensive working including EKG/Rhythm strip, Xray/CT/US, Blood/urine lab work, repeat exams while in ED, and administration of strong opiates/narcotics for pain control, admission to hospital or close patient follow up. Diagnosis - chest pain admitted to telemetry OBS in serious condition Labs Test 04/29/19 18:19 White Blood Count 10.5 K/UL (4.8-10.8) Red Blood Count 5.26 M/UL (4.70-6.10) Hemoglobin 14.8 G/DL (14.2-18.0) Hematocrit 44.2 % (42.0-52.0) Mean Corpuscular Volume 84 FL (80-99) Mean Corpuscular Hemoglobin 28.1 PG (27.0-31.0) Mean Corpuscular Hemoglobin Concent 33.4 G/DL (32.0-36.0) Red Cell Distribution Width 12.1 % (11.6-14.8) Platelet Count 208 K/UL (150-450) Mean Platelet Volume 10.4 FL (6.5-10.1) Neutrophils (%) (Auto) 74.3 % (45.0-75.0) Lymphocytes (%) (Auto) 15.4 % (20.0-45.0) Monocytes (%) (Auto) 7.3 % (1.0-10.0) Eosinophils (%) (Auto) 1.9 % (0.0-3.0) Basophils (%) (Auto) 1.1 % (0.0-2.0) Prothrombin Time 10.2 SEC (9.30-11.50) Prothromb Time International Ratio 1.0 (0.9-1.1) Activated Partial Thromboplast Time 27 SEC (23-33) Sodium Level 137 MMOL/L (136-145) Potassium Level 4.5 MMOL/L (3.5-5.1) Chloride Level 103 MMOL/L (98-107) Carbon Dioxide Level 20 MMOL/L (21-32) Anion Gap 14 mmol/L (5-15) Blood Urea Nitrogen 19 mg/dL (7-18) Creatinine 1.2 MG/DL (0.55-1.30) Estimat Glomerular Filtration Rate > 60 mL/min (>60) Glucose Level 121 MG/DL (74-106) Calcium Level 9.8 MG/DL (8.5-10.1) Total Bilirubin 0.4 MG/DL (0.2-1.0) Aspartate Amino Transf (AST/SGOT) 21 U/L (15-37) Alanine Aminotransferase (ALT/SGPT) 20 U/L (12-78) Alkaline Phosphatase 75 U/L (46-116) Troponin I 0.000 ng/mL (0.000-0.056) Pro-B-Type Natriuretic Peptide 54 pg/mL (0-125) Total Protein 8.2 G/DL (6.4-8.2) Albumin 4.0 G/DL (3.4-5.0) Globulin 4.2 g/dL Albumin/Globulin Ratio 1.0 (1.0-2.7) EKG Diagnostic Results Rate: normal Rhythm: NSR ST Segments: no acute changes ASA given to the pt in ED: No - on blood thinners Rhythm Strip Diag. Results EP Interpretation: yes Rhythm: NSR, no PVC's, no ectopy Chest X-Ray Diagnostic Results Chest X-Ray Diagnostic Results : Chest X-Ray Ordered: Yes # of Views/Limited/Complete: 1 View Indication: Chest Pain EP Interpretation: Yes Interpretation: no consolidation, no effusion, no pneumothorax, no acute cardiopulmonary disease, other - sternotomy wires, pacemaker Impression: No acute disease Electronically Signed by: Electronically signed by Alden Rodríguez MD Last Vital Signs Date Time Temp Pulse Resp B/P (MAP) Pulse Ox O2 Delivery O2 Flow Rate FiO2 04/29/19 20:28 98.6 71 15 133/77 99 Room Air Status: improved Disposition: ADMITTED INPATIENT Condition: Stable Referrals: NON PHYSICIAN (PCP) Alden Rodríguez MD Apr 29, 2019 21:07
[2019-04-29] MEDS: Tamsulosin 0.4mg cap ORAL SCH (21:34)
[2019-04-29] MEDS: NovoLOG Insulin Flexpen SUBQ SCH (22:00)
[2019-04-30] VITALS: BP 110/68
[2019-04-30 04:00] VITALS: BP 123/71
[2019-04-30] MEDS: NovoLOG Insulin Flexpen SUBQ SCH ×4 (06:30→21:00)
[2019-04-30 07:23] LABS: BASOPHILS % (AUTO) 1.5 % (0.0-2.0); EOSINOPHILS % (AUTO) 2.8 % (0.0-3.0); HEMATOCRIT 43.1 % (42.0-52.0); HEMOGLOBIN 14.1 G/DL (14.2-18.0); LYMPHOCYTES % (AUTO) 18.7 % (20.0-45.0); MEAN CORPUSCULAR VOLUME 85 FL (80-99); MONOCYTES % (AUTO) 11.6 % (1.0-10.0); NEUTROPHILS % (AUTO) 65.3 % (45.0-75.0); PLATELET COUNT 229 K/UL (150-450); RED BLOOD COUNT 5.06 M/UL (4.70-6.10); RED CELL DISTRIBUTION WIDTH 13.6 % (11.6-14.8)
[2019-04-30 07:36] LABS: CHOLESTEROL 203 MG/DL (< 200); HDL CHOLESTEROL 38 MG/DL (40-60); TRIGLYCERIDES 327 MG/DL (30-150)
--- NOTE | 2019-04-30 07:40 | NUR ---
HAND-OFF: Report given to KOREY Rossi. Pt in stable condition. Endorsed plan of care.
--- NOTE | 2019-04-30 07:45 | NUR ---
NURSE NOTES: Report received from KOREY Ramírez. in bed. Denies any pain at this time. Pt shows no signs of distress, A+Ox4. Respirations are even and unlabored on RA. IV site is patent and saline locked. Bed is at lowest position, brakes engaged, siderails x2, bed alarm on, and call light within reach. Pt is in stable condition at this time. Will continue with the plan of care.
[2019-04-30 07:59] LABS: INR 0.9 (0.9-1.1)
[2019-04-30 08:00] VITALS: BP 129/63
[2019-04-30] MEDS: Aspirin Baby 81mg ORAL SCH (08:55)
[2019-04-30] MEDS: Eliquis 5mg tablet ORAL SCH ×2 (08:56→17:49)
--- NOTE | 2019-04-30 10:21 | NUR ---
*-* NO INSURANCE INFORMATION IN THE BAR UNABLE TO SEND CLINICALS OR REVIEWS *-*
--- NOTE | 2019-04-30 10:50 | Diagnostic Imaging Report ---
Indication: Chest pain Comparison: 04/11/2019 A single view chest radiograph was obtained. Findings: Cardiomediastinal appearance is within normal limits for age. There is a pacemaker on the left again noted. Sternotomy is also again noted. The lungs are clear. Pulmonary vascularity is appropriate. The diaphragmatic contour is smooth and costophrenic angles are sharp. No pleural effusions are identified. The bones are unremarkable. Impression: No acute findings
--- NOTE | 2019-04-30 11:54 | Consultation ---
History of Present Illness General Date patient seen: Apr 30, 2019 Chief Complaint: Chest Pain Present Illness HPI 64-year-old male with extensive PMHx including pace maker, DVT, PE, hospital hopping, presented to ED complaining of chest pain again. Midsternal, sharp, 7 out of 10, nonradiating. Lasted for a few minutes then subsided. Denies chest pain at this time. States he also had similar chest pain 3 days ago. States he has a pacemaker. She has the routine of getting admitted for chest pain and usually all the work up is negative, then at the time of discharge the appeals the discharge and ends up staying a few more days. Allergies: Coded Allergies: HYDROMORPHONE (Verified Adverse Reaction, Severe, "overwhelms him. can tolerate morphine", 03/01/14) HYDROCODONE (Verified Adverse Reaction, Intermediate, N/V, 10/08/15) Uncoded Allergies: CONTRAST DYE (Allergy, Unknown, 03/15/19) Medication History Scheduled Apixaban (Eliquis), 5 MG PO BID, (Reported) Atorvastatin (Lipitor), 10 MG ORAL DAILY, (Reported) Atorvastatin Calcium* (Lipitor*), 10 MG ORAL BEDTIME, (Reported) Brimonidine Tartrate* (Alphagan*), 1 DROP BOTH EYES TID, (Reported) Dorzolamide HCl/Timolol Maleat (Dorzolamide-Timolol Eye Drops), 1 DROP BOTH EYES TWICE A DAY, (Reported) Dorzolamide/Timolol/Pf (Cosopt Pf Eye Drops), 1 EACH OP BID, (Reported) Finasteride* (Proscar*), 5 MG ORAL DAILY, (Reported) Hydrocodone Bit/Acetaminophen 10-325* (Hydrocodon-Acetaminophn 10-325*), 1 TAB ORAL Q6H, (Reported) Metformin Hcl* (Metformin Hcl*), 500 MG ORAL TWICE A DAY, (Reported) Tamsulosin Hcl (Tamsulosin Hcl*), 0.4 MG ORAL BEDTIME, (Reported) Travoprost (Benzalkonium) (Travatan 0.004% Eye Drop), 1 DROP BOTH EYES BEDTIME, (Reported) Patient History Healthcare decision maker Resuscitation status Full Code Advanced Directive on File Past Medical/Surgical History Past Medical/Surgical History: (1) Chronic anticoagulation (2) CAD (coronary artery disease) (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 (4) Diabetes mellitus (5) Hx pulmonary embolism (6) HTN (hypertension) (7) Ventricular mural thrombus (8) COPD (chronic obstructive pulmonary disease) Review of Systems All Other Systems: negative except mentioned in HPI Physical Exam General Appearance: WD/WN, no apparent distress Lines, tubes and drains: peripheral HEENT: normocephalic, atraumatic Neck: non-tender, normal alignment Respiratory/Chest: chest wall non-tender, lungs clear Breasts: no masses Cardiovascular/Chest: normal peripheral pulses, regular rhythm Abdomen: normal bowel sounds, soft Genitourinary/Rectal: normal genital exam Extremities: normal range of motion Last 24 Hour Vital Signs Date Time Temp Pulse Resp B/P (MAP) Pulse Ox O2 Delivery O2 Flow Rate FiO2 04/30/19 09:00 Room Air 04/30/19 08:00 77 04/30/19 08:00 98.1 77 21 129/63 (85) 97 04/30/19 04:00 97.9 78 22 123/71 (88) 98 04/30/19 04:00 78 04/30/19 00:00 97.5 80 20 110/68 (82) 98 04/30/19 00:00 80 04/29/19 21:00 Room Air 04/29/19 20:50 71 04/29/19 20:40 97.7 70 22 119/84 (96) 96 04/29/19 20:28 98.6 71 15 133/77 99 Room Air 04/29/19 19:45 98.6 71 15 133/77 99 Room Air 04/29/19 19:16 98.6 04/29/19 18:09 98.6 96 16 136/81 98 Room Air 04/29/19 18:09 98 16 Room Air 04/29/19 18:04 98.6 98 16 136/81 (99) 98 Room Air Intake and Output 04/29/19 04/30/19 19:00 07:00 Intake Total 300 ml Balance 300 ml Intake Oral 300 ml # Voids 1 2 # Bowel Movements 1 Laboratory Tests Test 04/29/19 18:19 04/30/19 06:33 White Blood Count 10.5 K/UL (4.8-10.8) 9.0 K/UL (4.8-10.8) Red Blood Count 5.26 M/UL (4.70-6.10) 5.06 M/UL (4.70-6.10) Hemoglobin 14.8 G/DL (14.2-18.0) 14.1 G/DL (14.2-18.0) L Hematocrit 44.2 % (42.0-52.0) 43.1 % (42.0-52.0) Mean Corpuscular Volume 84 FL (80-99) 85 FL (80-99) Mean Corpuscular Hemoglobin 28.1 PG (27.0-31.0) 27.8 PG (27.0-31.0) Mean Corpuscular Hemoglobin Concent 33.4 G/DL (32.0-36.0) 32.7 G/DL (32.0-36.0) Red Cell Distribution Width 12.1 % (11.6-14.8) 13.6 % (11.6-14.8) Platelet Count 208 K/UL (150-450) 229 K/UL (150-450) Mean Platelet Volume 10.4 FL (6.5-10.1) H 9.5 FL (6.5-10.1) Neutrophils (%) (Auto) 74.3 % (45.0-75.0) 65.3 % (45.0-75.0) Lymphocytes (%) (Auto) 15.4 % (20.0-45.0) L 18.7 % (20.0-45.0) L Monocytes (%) (Auto) 7.3 % (1.0-10.0) 11.6 % (1.0-10.0) H Eosinophils (%) (Auto) 1.9 % (0.0-3.0) 2.8 % (0.0-3.0) Basophils (%) (Auto) 1.1 % (0.0-2.0) 1.5 % (0.0-2.0) Prothrombin Time 10.2 SEC (9.30-11.50) 10.0 SEC (9.30-11.50) Prothromb Time International Ratio 1.0 (0.9-1.1) 0.9 (0.9-1.1) Activated Partial Thromboplast Time 27 SEC (23-33) 31 SEC (23-33) Sodium Level 137 MMOL/L (136-145) Potassium Level 4.5 MMOL/L (3.5-5.1) Chloride Level 103 MMOL/L (98-107) Carbon Dioxide Level 20 MMOL/L (21-32) L Anion Gap 14 mmol/L (5-15) Blood Urea Nitrogen 19 mg/dL (7-18) H Creatinine 1.2 MG/DL (0.55-1.30) Estimat Glomerular Filtration Rate > 60 mL/min (>60) Glucose Level 121 MG/DL (74-106) H Calcium Level 9.8 MG/DL (8.5-10.1) Total Bilirubin 0.4 MG/DL (0.2-1.0) Aspartate Amino Transf (AST/SGOT) 21 U/L (15-37) Alanine Aminotransferase (ALT/SGPT) 20 U/L (12-78) Alkaline Phosphatase 75 U/L (46-116) Troponin I 0.000 ng/mL (0.000-0.056) 0.000 ng/mL (0.000-0.056) Pro-B-Type Natriuretic Peptide 54 pg/mL (0-125) Total Protein 8.2 G/DL (6.4-8.2) Albumin 4.0 G/DL (3.4-5.0) Globulin 4.2 g/dL Albumin/Globulin Ratio 1.0 (1.0-2.7) Hemoglobin A1c 7.3 % (4.3-6.0) H C-Reactive Protein, Quantitative < 0.4 mg/dL (0.00-0.90) Triglycerides Level 327 MG/DL (30-150) H Cholesterol Level 203 MG/DL (< 200) H LDL Cholesterol 99 mg/dL (<100) HDL Cholesterol 38 MG/DL (40-60) L Cholesterol/HDL Ratio 5.3 (3.3-4.4) H Thyroid Stimulating Hormone (TSH) 4.898 uiU/mL (0.358-3.740) Height (Feet): 5 Height (Inches): 8.00 Weight (Pounds): 195 Medications Current Medications Medications (Trade) Dose Ordered Sig/Kristan Route PRN Reason Start Time Stop Time Status Last Admin Dose Admin Acetaminophen (Tylenol) 650 mg Q4H PRN ORAL FEVER (T>100.5F) 04/29/19 19:45 05/29/19 19:44 Albuterol/ Ipratropium (Albuterol/ Ipratropium) 3 ml Q4H PRN HHN Shortness of Breath 04/29/19 19:45 05/04/19 19:44 Apixaban (Eliquis) 5 mg BID ORAL 04/30/19 09:00 05/30/19 08:59 04/30/19 08:56 Aspirin (ASA) 162 mg DAILY ORAL 04/30/19 09:00 05/30/19 08:59 04/30/19 08:55 Dextrose (Dextrose 50%) 25 ml Q30M PRN IV Hypoglycemia 04/29/19 19:45 05/29/19 19:44 Dextrose (Dextrose 50%) 50 ml Q30M PRN IV Hypoglycemia 04/29/19 19:45 05/29/19 19:44 Diltiazem HCl (Cardizem) 10 mg Q1H PRN IV heart rate more than 120 04/29/19 19:45 05/29/19 19:44 Enalaprilat (Vasotec) 2.5 mg Q6H PRN IV sbp more than 160 04/29/19 19:45 05/29/19 19:44 Finasteride (Proscar) 5 mg DAILY ORAL 04/30/19 09:00 05/30/19 08:59 04/30/19 08:55 Insulin Aspart (NovoLOG) BEFORE MEALS AND HS SUBQ 04/29/19 22:00 05/29/19 21:59 Nitroglycerin (Ntg) 0.4 mg Q5M PRN SL Prn Chest Pain 04/29/19 19:45 05/29/19 19:44 Ondansetron HCl (Zofran) 4 mg Q6H PRN IVP Nausea & Vomiting 04/29/19 19:45 05/29/19 19:44 Pantoprazole (Protonix) 40 mg DAILY ORAL 04/30/19 09:00 05/30/19 08:59 04/30/19 08:55 Polyethylene Glycol (Miralax) 17 gm DAILYPRN PRN ORAL Constipation 04/29/19 19:45 05/29/19 19:44 Tamsulosin HCl (Flomax) 0.4 mg BEDTIME ORAL 04/29/19 21:00 05/29/19 20:59 04/29/19 21:34 Temazepam (Restoril) 15 mg HSPRN PRN ORAL Insomnia 04/29/19 19:45 05/06/19 19:44 Assessment/Plan Problem List: (1) Acute coronary syndrome ICD Codes: I20.0 - Acute coronary syndrome SNOMED: 535984081 (2) Hx pulmonary embolism ICD Codes: Z86.711 - Hx pulmonary embolism SNOMED: 693466225 (3) Chronic anticoagulation ICD Codes: Z79.01 - penitentiary (current) use of anticoagulants SNOMED: 652857493 (4) COPD (chronic obstructive pulmonary disease) ICD Codes: J44.9 - COPD (chronic obstructive pulmonary disease) SNOMED: 76333511 (5) CAD (coronary artery disease) ICD Codes: I25.10 - Atherosclerotic heart disease of [place] coronary artery without angina pectoris SNOMED: 16925667 (6) HTN (hypertension) ICD Codes: I10 - Essential (primary) hypertension SNOMED: 65369900 (7) Diabetes mellitus ICD Codes: E11.9 - Type 2 diabetes mellitus without complications SNOMED: 66900474 (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 Violet Schmid MD Apr 30, 2019 11:54
[2019-04-30 12:00] VITALS: BP 117/71
--- NOTE | 2019-04-30 14:21 | NUR ---
NM Lung V/Q Scan complete.
--- NOTE | 2019-04-30 14:29 | Diagnostic Imaging Report ---
Indication: Chest pain Technique: A ventilation/perfusion scan was performed. Ventilation was performed utilizing 40 mCi of Technetium 99m-DTPA. Perfusion was performed with 5.5 mCi of technetium 99m-MAA injected intravenously. Multiple side by side projections obtained. Findings: Ventilation is symmetric and normal. No significant defects are identified. Perfusion is symmetric and normal. No significant defects are identified. No mismatched defects seen. Impression: Normal VQ scan Interpretation of findings are based on EHSAN pedraza (2006).
[2019-04-30 15:59] VITALS: BP 112/73
--- NOTE | 2019-04-30 16:01 | NUR ---
CASE MANAGEMENT: INITIAL REVIEW 64 YR OLD MALE FROM HOME CC: CHEST PAIN SI: CHEST PAIN 98.6 98 16 136/81 98% ON RA IS: IV MORPHINE X1 2E TELE UNIT CASE MANAGEMENT:REVIEW 04/30/19 SI: CHEST PAIN 98.1 77 21 129/63 97% ON RA TSH 4.89 IS: ASA PO QD PROTONIX PO QD PROSCAR PO QD ELIQUIS PO BID : 2E TELE UNIT DCP: HOME WHEN MEDICALLY CLEARED
--- NOTE | 2019-04-30 16:03 | Cardiology Report ---
APPROVED REPORT EXAM: Two-dimensional and M-mode echocardiogram with Doppler and color Doppler. INDICATION LV FUNCTION M-Mode DIMENSIONS IVSd1.0 (0.7-1.1cm)Left Atrium (MM)4.0 (1.6-4.0cm) LVDd4.8 (3.5-5.6cm)Aortic Root2.9 (2.0-3.7cm) PWd1.1 (0.7-1.1cm)Aortic Cusp Exc.2.2 (1.5-2.0cm) IVSs1.1 cm LVDs3.7 (2.5-4.0cm) PWs1.3 cm Technically difficult study due to poor acoustical windows. Normal left ventricular chamber size, systolic function and wall motion to extent visualized. Left ventricular ejection fraction estimated to be 60 %. No evidence of left ventricular hypertrophy . No evidence of pericardial effusion. All other cardiac chamber sizes are within normal limits. Focal aortic valve sclerosis with adequate cusp excursion. Thickened mitral valve leaflets with normal excursion. Mitral annulus and aortic root calcification. Normal pulmonic valve structure. Normal tricuspid valve structure. IVC at normal size with physiologic collapse. A color flow and spectral Doppler study was performed and revealed: Trace aortic regurgitation. Trace mitral regurgitation. Mitral inflow indicates normal left ventricular diastolic function Mild tricuspid regurgitation. Tricuspid systolic velocities suggests peak right ventricular systolic pressure of 29mmHg.
--- NOTE | 2019-04-30 19:07 | History & Physical ---
History and Physical History & Physicial Dictated for Int Med-Dr Montes no. [id number]. Charbel Serrato MD Apr 30, 2019 19:07
--- NOTE | 2019-04-30 19:30 | NUR ---
NURSE NOTES: Received patient from Aurelio NAIR. Patient in bed, on room air, no signs of respiratory distress. Right forearm 22 gauge iv intact, patent, flushed, no signs of infiltration. Dr. Askew at bedside.
--- NOTE | 2019-04-30 19:31 | NUR ---
HAND-OFF: Report given to Moisés. Endorsed plan of care. Patient is in stable condition..
--- NOTE | 2019-04-30 19:54 | Cardiology Progress Note ---
Assessment/Plan Assessment/Plan cp with hs of same multiple hospitalization per [facility] records cath at [place] 11/2017 no epicardial vessel disease last stress tst neg at [facility] 07/2018 all trop neg ekg neg echo neg will not further pursuit at this time cardiac chu [id number] Objective Last 24 Hour Vital Signs Date Time Temp Pulse Resp B/P (MAP) Pulse Ox O2 Delivery O2 Flow Rate FiO2 04/30/19 16:00 79 04/30/19 15:59 97.5 73 20 112/73 (86) 99 04/30/19 12:00 73 04/30/19 12:00 98.0 73 20 117/71 (86) 97 04/30/19 09:00 Room Air 04/30/19 08:00 77 04/30/19 08:00 98.1 77 21 129/63 (85) 97 04/30/19 04:00 97.9 78 22 123/71 (88) 98 04/30/19 04:00 78 04/30/19 00:00 97.5 80 20 110/68 (82) 98 04/30/19 00:00 80 04/29/19 21:00 Room Air 04/29/19 20:50 71 04/29/19 20:40 97.7 70 22 119/84 (96) 96 04/29/19 20:28 98.6 71 15 133/77 99 Room Air Intake and Output 04/29/19 04/30/19 19:00 07:00 Intake Total 300 ml Balance 300 ml Intake Oral 300 ml # Voids 1 2 # Bowel Movements 1 Laboratory Tests Test 04/30/19 06:33 White Blood Count 9.0 K/UL (4.8-10.8) Red Blood Count 5.06 M/UL (4.70-6.10) Hemoglobin 14.1 G/DL (14.2-18.0) L Hematocrit 43.1 % (42.0-52.0) Mean Corpuscular Volume 85 FL (80-99) Mean Corpuscular Hemoglobin 27.8 PG (27.0-31.0) Mean Corpuscular Hemoglobin Concent 32.7 G/DL (32.0-36.0) Red Cell Distribution Width 13.6 % (11.6-14.8) Platelet Count 229 K/UL (150-450) Mean Platelet Volume 9.5 FL (6.5-10.1) Neutrophils (%) (Auto) 65.3 % (45.0-75.0) Lymphocytes (%) (Auto) 18.7 % (20.0-45.0) L Monocytes (%) (Auto) 11.6 % (1.0-10.0) H Eosinophils (%) (Auto) 2.8 % (0.0-3.0) Basophils (%) (Auto) 1.5 % (0.0-2.0) Prothrombin Time 10.0 SEC (9.30-11.50) Prothromb Time International Ratio 0.9 (0.9-1.1) Activated Partial Thromboplast Time 31 SEC (23-33) Hemoglobin A1c 7.3 % (4.3-6.0) H Troponin I 0.000 ng/mL (0.000-0.056) C-Reactive Protein, Quantitative < 0.4 mg/dL (0.00-0.90) Triglycerides Level 327 MG/DL (30-150) H Cholesterol Level 203 MG/DL (< 200) H LDL Cholesterol 99 mg/dL (<100) HDL Cholesterol 38 MG/DL (40-60) L Cholesterol/HDL Ratio 5.3 (3.3-4.4) H Thyroid Stimulating Hormone (TSH) 4.898 uiU/mL (0.358-3.740) Marco Askew MD Apr 30, 2019 19:54
[2019-04-30 20:00] VITALS: BP 118/68
[2019-04-30] MEDS: Tamsulosin 0.4mg cap ORAL SCH (20:48)
--- NOTE | 2019-04-30 21:00 | NUR ---
NURSE NOTES: Patient refused to have blood sugar checked. States "you seem to be concerned about it." Explained to patient that we check blood sugar in the afternoon before dinner and then at bedtime. Patient refused again.
--- NOTE | 2019-04-30 21:00 | NUR ---
NURSE NOTES: Notified Dr. Askew that patient is c/o chest pain. Dr. Askew stated it is not cardiac and that he is cleared from cardiac standpoint. Notified Dr. Schmid and informed him of patient c/o chest pain and that Dr. Askew said it is not cardiac in nature. Dr. Schmid ordered him to be discharged and to give him tylenol.
--- NOTE | 2019-04-30 22:00 | NUR ---
NURSE NOTES: Notified Dr. Schmid that patient refused to be discharged now and will leave in the morning.
[2019-05-01] VITALS: BP 119/62
--- NOTE | 2019-05-01 00:31 | History and Physical Report ---
DATE OF ADMISSION: 04/29/2019 CHIEF COMPLAINT: The patient is a 64-year-old male, who presents with a chief complaint of chest pain. HISTORY OF PRESENT ILLNESS: The patient was admitted to [facility] from April 11, 2019 to April 16, 2019 for chest pain. Please see history and physical and discharge summary dictated at that time. The patient presented to [place] emergency room on April 29, 2019 complaining of chest pain. Chest pain was substernal. The pain was reported as being sharp, 7/10 in intensity. It did not radiate to the jaw or to the shoulder. The patient presented to [place] emergency room. The patient was admitted for chest pain to rule out acute coronary syndrome. REVIEW OF SYSTEMS: CONSTITUTIONAL: The patient denies weight loss or weight gain. The patient denies fevers or chills. HEENT: The patient denies ear or throat pain. The patient denies headache. CARDIOVASCULAR: The patient complains of chest pain as above. The patient denies palpitations. CHEST: The patient denies wheezes or shortness of breath. ABDOMINAL: The patient denies nausea, vomiting, diarrhea, or constipation. GENITOURINARY: The patient denies dysuria or increased frequency of urination. NEUROMUSCULAR: The patient denies seizures or generalized weakness. PAST MEDICAL HISTORY: Significant for, 1. Bilateral pulmonary embolism in 2012, status post IVC filter placement and currently on Eliquis. 2. Glaucoma of both eyes. 3. Diabetes type 2. 4. Hypercholesterolemia. 5. History of bradycardia, status post pacemaker implantation. PAST SURGICAL HISTORY: Significant for: 1. Pacemaker implantation in January of 2018 at [facility]. 2. IVC filter placement. CURRENT MEDICATIONS: 1. Eliquis 5 mg p.o. twice daily. 2. Lipitor 10 mg p.o. daily. 3. Alphagan one drop to both eyes three times daily. 4. Timolol 1 drop to both eyes twice daily. 5. Cosopt 1 drop to both eyes twice daily. 6. Proscar 5 mg p.o. daily. 7. [place] 10/325 mg one tablet p.o. q.6 h. p.o. q.6 hours. 8. Metformin 500 mg p.o. twice daily. 9. Flomax 0.4 mg p.o. daily. 10. Travatan 1 drop to both eyes at bedtime. ALLERGIES: 1. Iodine contrast dye. 2. Dilaudid. SOCIAL HISTORY: The patient is single and lives alone. The patient denies tobacco or alcohol use. PHYSICAL EXAMINATION: VITAL SIGNS: Temperature 98.6, respirations 16, pulse 98, and blood pressure 136/81. GENERAL: The patient is a well-developed and well-nourished obese male, in no apparent distress. HEENT: Eyes, pupils are equal and responsive to light and accommodation. Extraocular movements are intact. NECK: Supple without lymphadenopathy. CHEST: Lungs are clear to auscultation bilaterally without wheezes or rales. CARDIOVASCULAR: Regular rhythm and rate. S1 and S2 are normal without murmurs, rubs, or gallops. ABDOMEN: Soft, nontender, and nondistended. Positive bowel sounds. No evidence of hepatosplenomegaly. Currently, no rebound or guarding noted. EXTREMITIES: Negative for clubbing, cyanosis, or edema. RECTAL/GENITAL: Not performed. NEUROLOGIC: Cranial nerves II through XII are grossly intact without focal deficits. Motor strength is 5/5 bilaterally. Deep tendon reflexes are 2+ plantar. LABORATORY STUDIES: WBC 10.5, hemoglobin 14.8, hematocrit 44.2, and platelets 208,000. Sodium 137, potassium 4.5, chloride 103, CO2 20, BUN 19, creatinine 1.2, and glucose 121. Troponin 0.0. ASSESSMENT: This is a 64-year-old male. 1. Chest pain. 2. Diabetes type 2. 3. Hypercholesterolemia. 4. History of bradycardia. 5. Pacemaker in situ. 6. History of pulmonary embolism. TREATMENT: 1. Chest pain. A Cardiology consultation has been obtained with Dr. Marco Askew. The patient underwent a pacemaker check during the last hospitalization. We will follow recommendation of Cardiology. Initial troponin levels are negative. 2. Hypercholesterolemia. Continue Lipitor as above. 3. Bradycardia. The patient is status post pacemaker implantation. 4. History of pulmonary embolism. Continue Eliquis as above. 5. Glaucoma. Continue eye drops as above. Charbel Serrato M.D. DR: VASHTI JOB#: [id number] CC:
--- NOTE | 2019-05-01 01:01 | Consultation ---
DATE OF CONSULTATION: 04/30/2019 CARDIOLOGY CONSULTATION CONSULTING PHYSICIAN: Marco Askew M.D. REFERRING PHYSICIAN: Violet Schmid M.D., and Rik Montes M.D. REASON FOR REFERRAL: Chest pain. HISTORY OF PRESENT ILLNESS: This is an elderly gentleman, who was admitted to the hospital because of episodes of chest pain. Basically it appears, on Sunday, he had some episode of pain, sharp sensation in the left side of the chest. He was at a library and had some paperwork to do and did and eventually the pain resolved and came back again yesterday, so apparently presented to the emergency room. Really the pain lasted for several hours and again this morning, he had mild amount of pain. He is quite active apparently. He does calisthenics he states and he never experiences any chest pain when he does those activities. There is no dyspnea on exertion. He uses two pillows. There is no PND. He does have occasional palpitations. PAST MEDICAL HISTORY: Positive for history of permanent pacemaker implantation for history of apparently a prior heart block and pacemaker was implanted at [facility]. He was seen by the instrument repairer steam plant approximately three months ago. He does have history of pulmonary embolism. Of note, he is on anticoagulation chronically. He is diabetic he states and he has high cholesterol. No heart attack. No cancer. No stroke. No hepatitis or tuberculosis. No asthma or emphysema. No ulcers. No kidney problems, liver problems, thyroid problems, anemia, HIV, or AIDS. He does have enlarged prostate. He denies any problems of high blood pressure before. For his PE, he had thrombectomy and has a history of IVC filter. In fact, the [facility] records were reviewed. He has had hospitalizations in multiple places and apparently he underwent cardiac cath at [facility] in November 2018. No epicardial coronary disease was noted. He has had perfusion imagings that were negative as well. Hence, it was felt previously that the pain was related to musculoskeletal causes. ALLERGIES: The patient states he is allergic to iodine dye, hydrocodone, and hydromorphone. SOCIAL HISTORY: He denies any smoking or alcohol. Denies any drugs. REVIEW OF SYSTEMS: GASTROINTESTINAL: He denies. GENITOURINARY: He denies. PULMONARY: He denies. CONSTITUTIONAL: He denies. NEUROLOGICAL: Negative. PHYSICAL EXAMINATION: GENERAL: Shows to be a middle-aged gentleman, in no respiratory distress. NECK: Supple. No jugular venous distention. LUNGS: Clear to auscultation and percussion. CARDIAC: Shows S1 is normal. S2 is normal. Regular rate and rhythm. There are no heaves or thrills noted. There is a systolic murmur noted. ABDOMEN: Soft and nontender. Positive bowel sounds. EXTREMITIES: There is no clubbing or cyanosis nor is there any edema. MUSCULOSKELETAL: Chest wall is nontender to palpation. LABORATORY AND DIAGNOSTIC DATA: His last myocardial perfusion imaging at [facility] was in July 2018, that showed normal wall motion, normal stress/rest SPECT Cardiolite scan, no evidence of infarction or ischemia, and ejection fraction of 68% at that time. His last echocardiogram was performed in February 2019, here at [facility] with ejection fraction of 55% and his echocardiogram was again performed here and showed ejection fraction of 60% and no significant valvular issues. A V/Q scan has also been performed here that showed normal V/Q scan and his chest x-ray was performed that showed no acute findings. His electrocardiogram was unremarkable. Telemetry was negative. His laboratories, his white count 9, hemoglobin 14.1, and platelet count of 229,000. Sodium is 137, potassium 4.5, chloride 103, bicarb 20, BUN 19, creatinine 1.2, and glucose of 121. A1c of 7.3. Two sets of cardiac enzymes are completely negative. Triglycerides 327, total cholesterol 203 with LDL of 99 and HDL of 38. TSH of 4.898. ASSESSMENT AND PLAN: 1. Atypical chest pain. No evidence of myonecrosis despite hours of pain over the past few days. 2. History of chronic chest pains and recurrent chest pain as well, history of pulmonary embolism and status post reported thrombectomy years ago. 3. Diabetes. 4. Hypertension. This patient has had extensive evaluation at several different hospitals. As mentioned, the patient has originally had cardiac catheterization in November 2018 that showed epicardial vessels. In light of the fact that cardiac enzymes and EKGs are negative, I favor no further workup at this time. Marco Askew M.D. DR: Joana JOB#: [id number] CC:
[2019-05-01 04:00] VITALS: BP 111/68
--- NOTE | 2019-05-01 05:40 | NUR ---
NURSE NOTES: Attempted to check blood sugar. Patient refused and stated "let day shift do it." Informed him I'll come back in an hour, patient continues to refuse and says "let day shift do it."
[2019-05-01] MEDS: NovoLOG Insulin Flexpen SUBQ SCH (06:30)
--- NOTE | 2019-05-01 07:58 | NUR ---
NURSE NOTES: Received report from KOREY Curiel. DC orders already in place. Patient refused bl sugar check and vital signs check. Finishing breakfast at time of bedside assessment. Bed in lowest, locked position. Call kothari and urinal in reach. AOX4 with calm affect. No sign of respiratory or cardiac distress. Explained to patient that discharge in process and emotional support and active listening utilized. Spoke with certified paralegal who assisted with dc planning/order prep. Patient is observation status with return to home meds upon dc per property maintenance supervisor.
[2019-05-01] MEDS: Eliquis 5mg tablet ORAL SCH (09:36)
[2019-05-01] MEDS: Aspirin Baby 81mg ORAL SCH (09:36)
--- NOTE | 2019-05-01 09:49 | NUR ---
NURSE NOTES: Discussed dc with patient. Reviewed dc meds(restart home meds) and f/u appt with primary MD. Patient has no furhter questions at this time. Denies chest pain currently. No SOB. environmental control administrator assisted in completing dc paperwork after this RN assessed patient at bedside--patient is stable, aox4 , calm and cooperative. Verified all belongings with patient at time of dc. Patient refused wheelchair--awaiting ride home in private car. Removed IV. Removed tele. Addendum: 05/01/19 at 0957 by Kiko Terry RN Gave patient his morning meds--he stated he understood his med regimen and nextdose for meds. Returned to room to accompany patient in elevator to hospital door, but patient had left the unit perhaps by back elevator since this RN and charge didn't see him come to RN station elevators. patient was ambulating with a steady gait and denied any need for assistance previously when in room.
--- NOTE | 2019-05-02 15:50 | Cardiology Report ---
APPROVED REPORT EKG Measurement Heart [id number] NM [id number] Normal sinus rhythm Normal ECG
== END 2019-05-01 09:59 | disposition home or self-care (01) ==
LOC: EMR 18:32 → 2E 18:58 → INTOOBSV 18:58 → EDBEDREQ 19:44
DX: R07.9 Chest pain, unspecified (principal); E11.9 Type 2 diabetes mellitus without complications; E78.00 Pure hypercholesterolemia, unspecified; H40.9 Unspecified glaucoma; J44.9 Chronic obstructive pulmonary disease, unspecified; I20.0 Unstable angina; F60.2 Antisocial personality disorder; I11.9 Hypertensive heart disease without heart failure; Z86.718 Personal history of other venous thrombosis and embolism; Z91.041 Radiographic dye allergy status; Z88.6 Allergy status to analgesic agent; Z79.01 Long term (current) use of anticoagulants; Z79.84 Long term (current) use of oral hypoglycemic drugs; Z95.0 Presence of cardiac pacemaker; Z86.711 Personal history of pulmonary embolism
CPT/HCPCS: 36415 ×2; 71045; 78579; 78580; 80053; 80061; 82962 ×2; 83036; 83880; 84443; 84484 ×3; 85025 ×2; 85610 ×2; 85730 ×2; 86140; 87081; 93005; 93306; 96374; 99285; A4641; A9503; G0378 ×2; J1815; J2270

== ENCOUNTER 2019-07-03 19:23 | Inpatient (IN) | payer OTHER, MEDICAID ==
[~2019-07-03] VITALS: Ht 172.7 cm; Wt 90.3 kg
--- NOTE | 2019-07-03 19:55 | NUR ---
ED Nurse Note: pt presents to ED c/o L sided 8/10 CP that radiates into his L neck. pt states that he was sitting with friends talking when the CP started an hour ago and that he has been feel SOB. pt describes the px as a "pressure." pt denies taking anything at [employer] [employer] for the symptoms. pt has a pacemaker in his L chest that has been "malfunctioning" pt reports readings of resting HR in the 130's.
[2019-07-03 20:00] VITALS: BP 138/81
[2019-07-03 20:38] LABS: APPEARANCE,URINE CLEAR; BILIRUBIN, URINE NEGATIVE (NEGATIVE); COLOR,URINE PALE YELLOW; GLUCOSE, URINE (UA) NEGATIVE (NEGATIVE); KETONES,URINE NEGATIVE (NEGATIVE); LEUKOCYTE ESTERASE ,URINE 1+ (NEGATIVE); NITRITE,URINE NEGATIVE (NEGATIVE); PH,URINE 6 (4.5-8.0); PROTEIN,URINE NEGATIVE (NEGATIVE); UROBILINOGEN,URINE NORMAL MG/DL (0.0-1.0)
[2019-07-03 20:52] LABS: ANION GAP 11 mmol/L (5-15); BLOOD UREA NITROGEN 14 mg/dL (7-18); CALCIUM 8.8 MG/DL (8.5-10.1); CARBON DIOXIDE 20 MMOL/L (21-32); CHLORIDE 107 MMOL/L (98-107); POTASSIUM 5.2 MMOL/L (3.5-5.1); SODIUM 138 MMOL/L (136-145)
[2019-07-03 21:01] LABS: ALANINE AMINOTRANSFERASE 17 U/L (12-78); ALBUMIN 3.5 G/DL (3.4-5.0); ALBUMIN/GLOBULIN RATIO 0.9 (1.0-2.7); ALKALINE PHOSPHATASE 56 U/L (46-116); ASPARTATE AMINO TRANSFERASE 33 U/L (15-37); BILIRUBIN,TOTAL 0.4 MG/DL (0.2-1.0)
[2019-07-03] MEDS ORDERED: Enalaprilat 2.5mg/2ml Inj IV PRN (21:45)
[2019-07-03] MEDS ORDERED: Albuterol/Ipratropium 3ml neb HHN PRN (21:45)
[2019-07-03] MEDS ORDERED: Miralax 17gm pkt ORAL PRN (21:45)
[2019-07-03] MEDS ORDERED: Nitroglycerin Subl 0.4mg tab SL PRN (21:45)
[2019-07-03] MEDS ORDERED: dilTIAZem HCl 25mg/5ml Inj IV PRN (21:45)
[2019-07-03] MEDS ORDERED: Ketorolac 30mg Inj ONE (21:56)
[2019-07-03 22:22] LABS: BASOPHILS % (AUTO) 1.2 % (0.0-2.0); EOSINOPHILS % (AUTO) 3.1 % (0.0-3.0); HEMOGLOBIN 12.4 G/DL (14.2-18.0); LYMPHOCYTES % (AUTO) 28.3 % (20.0-45.0); MEAN CORPUSCULAR VOLUME 85 FL (80-99); MONOCYTES % (AUTO) 10.9 % (1.0-10.0); NEUTROPHILS % (AUTO) 56.5 % (45.0-75.0); PLATELET COUNT 184 K/UL (150-450); RED BLOOD COUNT 4.49 M/UL (4.70-6.10); RED CELL DISTRIBUTION WIDTH 15.2 % (11.6-14.8)
[2019-07-03 23:00] VITALS: BP 135/77
--- NOTE | 2019-07-03 23:34 | NUR ---
ED Nurse Note: report given to Rogelio NAIR, no bed available yet. will wait for room to be read
[2019-07-04] VITALS: BP 139/82
--- NOTE | 2019-07-04 00:01 | NUR ---
NURSE NOTES: received pt from KOREY Dennison. Belongings list verified and signed at pt bedside. monitor worker placed on patient and vitals taken. Oriented pt to room and floor. Pt is awake and resting in bed in no distress. Iv site intact and patent. Bed locked in lowest position, call light within reach. Will continue with plan of care.
[2019-07-04] MEDS: NovoLOG Insulin Flexpen SUBQ SCH ×4 (06:30→21:00)
--- NOTE | 2019-07-04 07:18 | NUR ---
HAND-OFF: Report given to KOREY Calvillo. Endorsed plan of care.
[2019-07-04 07:59] LABS: EOSINOPHILS % (AUTO) 4.9 % (0.0-3.0); HEMATOCRIT 35.4 % (42.0-52.0); HEMOGLOBIN 11.6 G/DL (14.2-18.0); LYMPHOCYTES % (AUTO) 26.4 % (20.0-45.0); MEAN CORPUSCULAR VOLUME 84 FL (80-99); MONOCYTES % (AUTO) 13.2 % (1.0-10.0); NEUTROPHILS % (AUTO) 54.5 % (45.0-75.0); PLATELET COUNT 165 K/UL (150-450); RED BLOOD COUNT 4.22 M/UL (4.70-6.10); RED CELL DISTRIBUTION WIDTH 15.2 % (11.6-14.8); WHITE BLOOD COUNT 4.9 K/UL (4.8-10.8)
[2019-07-04 08:07] LABS: CHOLESTEROL 150 MG/DL (< 200); HDL CHOLESTEROL 35 MG/DL (40-60); TRIGLYCERIDES 274 MG/DL (30-150)
[2019-07-04] MEDS: Aspirin Baby 81mg ORAL SCH (08:22)
[2019-07-04] MEDS: Eliquis 5mg tablet ORAL SCH ×2 (08:23→18:05)
--- NOTE | 2019-07-04 09:21 | Diagnostic Imaging Report ---
Indication: Chest pain Technique: One view of the chest Comparison: 06/05/2019 Findings: Lungs and pleural spaces are clear. The heart size is normal. There is a left chest pacemaker again demonstrated. No significant interim change Impression: No acute process
[2019-07-04 12:00] VITALS: BP 134/95
--- NOTE | 2019-07-04 12:13 | Consultation ---
History of Present Illness General Date patient seen: Jul 04, 2019 Chief Complaint: Chest Pain Present Illness HPI 64 year old male with hx of CAD, ventricular mural thrombosis, with ICD, presented to ER with CC of chest pain and palpitation. He was told by a medical collections representative of his ICD company that his medication needs to be adjusted. His heart rate was 120-130 in the ER. Allergies: Coded Allergies: HYDROCODONE (Verified Adverse Reaction, Intermediate, N/V, 10/08/15) Uncoded Allergies: CONTRAST DYE (Allergy, Unknown, 03/15/19) Medication History Scheduled Apixaban (Eliquis), 5 MG PO BID, (Reported) Atorvastatin (Lipitor), 10 MG ORAL DAILY, (Reported) Brimonidine Tartrate* (Alphagan*), 1 DROP BOTH EYES TID, (Reported) Dorzolamide HCl/Timolol Maleat (Dorzolamide-Timolol Eye Drops), 1 DROP BOTH EYES TWICE A DAY, (Reported) Dorzolamide/Timolol/Pf (Cosopt Pf Eye Drops), 1 EACH OP BID, (Reported) Finasteride* (Proscar*), 5 MG ORAL DAILY, (Reported) Metformin Hcl* (Metformin Hcl*), 500 MG ORAL TWICE A DAY, (Reported) Tamsulosin Hcl (Tamsulosin Hcl*), 0.4 MG ORAL BEDTIME, (Reported) Travoprost (Benzalkonium) (Travatan 0.004% Eye Drop), 1 DROP BOTH EYES BEDTIME, (Reported) Patient History Healthcare decision maker Resuscitation status Full Code Advanced Directive on File Past Medical/Surgical History Past Medical/Surgical History: (1) DVT (deep venous thrombosis) (2) COPD (chronic obstructive pulmonary disease) (3) Lumbar spondylosis (4) Ventricular mural thrombus (5) HTN (hypertension) (6) Hx pulmonary embolism (7) Diabetes mellitus (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 (9) Status post thoracotomy Review of Systems All Other Systems: negative except mentioned in HPI Physical Exam General Appearance: WD/WN Lines, tubes and drains: peripheral HEENT: normocephalic, atraumatic Neck: non-tender, normal alignment Respiratory/Chest: chest wall non-tender, lungs clear Breasts: no masses Cardiovascular/Chest: normal peripheral pulses Abdomen: normal bowel sounds, non tender Genitourinary/Rectal: normal genital exam Extremities: normal range of motion Skin Exam: normal pigmentation Last 24 Hour Vital Signs Date Time Temp Pulse Resp B/P (MAP) Pulse Ox O2 Delivery O2 Flow Rate FiO2 07/04/19 11:41 Room Air 07/04/19 08:56 96.6 71 19 98 07/04/19 08:00 62 07/04/19 04:00 60 07/04/19 04:00 60 07/04/19 00:20 Room Air 07/04/19 00:00 84 07/04/19 00:00 97.9 84 20 139/82 (101) 95 07/03/19 23:50 98.2 65 18 135/77 100 Room Air 07/03/19 23:00 98.2 60 18 135/77 100 Room Air 07/03/19 20:00 98.2 65 16 138/81 97 Room Air 07/03/19 20:00 70 16 Room Air 07/03/19 19:26 98.2 70 16 138/81 (100) 97 Room Air Intake and Output 07/03/19 07/04/19 19:00 07:00 Intake Total 455 ml Balance 455 ml Intake Oral 455 ml # Voids 1 Laboratory Tests Test 07/03/19 20:06 07/03/19 20:10 07/03/19 21:57 07/04/19 06:37 Sodium Level 138 MMOL/L (136-145) Potassium Level 5.2 MMOL/L (3.5-5.1) H Chloride Level 107 MMOL/L (98-107) Carbon Dioxide Level 20 MMOL/L (21-32) L Anion Gap 11 mmol/L (5-15) Blood Urea Nitrogen 14 mg/dL (7-18) Creatinine 1.0 MG/DL (0.55-1.30) Estimat Glomerular Filtration Rate > 60 mL/min (>60) Glucose Level 118 MG/DL (74-106) H Calcium Level 8.8 MG/DL (8.5-10.1) Total Bilirubin 0.4 MG/DL (0.2-1.0) Aspartate Amino Transf (AST/SGOT) 33 U/L (15-37) Alanine Aminotransferase (ALT/SGPT) 17 U/L (12-78) Alkaline Phosphatase 56 U/L (46-116) Troponin I 0.000 ng/mL (0.000-0.056) 0.003 ng/mL (0.000-0.056) Total Protein 7.5 G/DL (6.4-8.2) Albumin 3.5 G/DL (3.4-5.0) Globulin 4.0 g/dL Albumin/Globulin Ratio 0.9 (1.0-2.7) L Urine Color Pale yellow Urine Appearance Clear Urine pH 6 (4.5-8.0) Urine Specific [place] 1.015 (1.005-1.035) Urine Protein Negative (NEGATIVE) Urine Glucose (UA) Negative (NEGATIVE) Urine Ketones Negative (NEGATIVE) Urine Blood Negative (NEGATIVE) Urine Nitrite Negative (NEGATIVE) Urine Bilirubin Negative (NEGATIVE) Urine Urobilinogen Normal MG/DL (0.0-1.0) Urine Leukocyte Esterase 1+ (NEGATIVE) H Urine RBC 0-2 /HPF (0 - 0) H Urine WBC 2-4 /HPF (0 - 0) Urine Squamous Epithelial Cells None /LPF (NONE/OCC) Urine Bacteria Few /HPF (NONE) Urine Opiates Screen Negative (NEGATIVE) Urine Barbiturates Screen Negative (NEGATIVE) Phencyclidine (PCP) Screen Negative (NEGATIVE) Urine Amphetamines Screen Negative (NEGATIVE) Urine Benzodiazepines Screen Negative (NEGATIVE) Urine Cocaine Screen Negative (NEGATIVE) Urine Marijuana (THC) Screen Negative (NEGATIVE) White Blood Count 6.0 K/UL (4.8-10.8) 4.9 K/UL (4.8-10.8) Red Blood Count 4.49 M/UL (4.70-6.10) L 4.22 M/UL (4.70-6.10) L Hemoglobin 12.4 G/DL (14.2-18.0) L 11.6 G/DL (14.2-18.0) L Hematocrit 38.0 % (42.0-52.0) L 35.4 % (42.0-52.0) L Mean Corpuscular Volume 85 FL (80-99) 84 FL (80-99) Mean Corpuscular Hemoglobin 27.6 PG (27.0-31.0) 27.6 PG (27.0-31.0) Mean Corpuscular Hemoglobin Concent 32.6 G/DL (32.0-36.0) 32.9 G/DL (32.0-36.0) Red Cell Distribution Width 15.2 % (11.6-14.8) H 15.2 % (11.6-14.8) H Platelet Count 184 K/UL (150-450) 165 K/UL (150-450) Mean Platelet Volume 10.4 FL (6.5-10.1) H 9.7 FL (6.5-10.1) Neutrophils (%) (Auto) 56.5 % (45.0-75.0) 54.5 % (45.0-75.0) Lymphocytes (%) (Auto) 28.3 % (20.0-45.0) 26.4 % (20.0-45.0) Monocytes (%) (Auto) 10.9 % (1.0-10.0) H 13.2 % (1.0-10.0) H Eosinophils (%) (Auto) 3.1 % (0.0-3.0) H 4.9 % (0.0-3.0) H Basophils (%) (Auto) 1.2 % (0.0-2.0) 1.0 % (0.0-2.0) Prothrombin Time 10.5 SEC (9.30-11.50) Prothromb Time International Ratio 1.0 (0.9-1.1) Activated Partial Thromboplast Time 30 SEC (23-33) C-Reactive Protein, Quantitative < 0.4 mg/dL (0.00-0.90) Triglycerides Level 274 MG/DL (30-150) H Cholesterol Level 150 MG/DL (< 200) LDL Cholesterol 77 mg/dL (<100) HDL Cholesterol 35 MG/DL (40-60) L Cholesterol/HDL Ratio 4.3 (3.3-4.4) Thyroid Stimulating Hormone (TSH) 1.276 uiU/mL (0.358-3.740) Height (Feet): 5 Height (Inches): 8.00 Weight (Pounds): 204 Medications Current Medications Medications (Trade) Dose Ordered Sig/Kristan Route PRN Reason Start Time Stop Time Status Last Admin Dose Admin Acetaminophen (Tylenol) 650 mg Q4H PRN ORAL FEVER 07/03/19 21:45 08/02/19 21:44 Albuterol/ Ipratropium (Albuterol/ Ipratropium) 3 ml Q4H PRN HHN Shortness of Breath 07/03/19 21:45 07/08/19 21:44 Apixaban (Eliquis) 5 mg BID ORAL 07/04/19 09:00 08/03/19 08:59 07/04/19 08:23 Aspirin (ASA) 162 mg DAILY ORAL 07/04/19 09:00 08/03/19 08:59 07/04/19 08:22 Atorvastatin Calcium (Lipitor) 10 mg BEDTIME ORAL 07/04/19 21:00 08/03/19 20:59 Dextrose (Dextrose 50%) 25 ml Q30M PRN IV Hypoglycemia 07/03/19 21:45 08/02/19 21:44 Dextrose (Dextrose 50%) 50 ml Q30M PRN IV Hypoglycemia 07/03/19 21:45 08/02/19 21:44 Diltiazem HCl (Cardizem) 10 mg Q1H PRN IV heart rate more than 120, 07/03/19 21:45 08/02/19 21:44 Enalaprilat (Vasotec) 2.5 mg Q6H PRN IV sbp more than 160 07/03/19 21:45 08/02/19 21:44 Finasteride (Proscar) 5 mg DAILY ORAL 07/04/19 09:00 08/03/19 08:59 07/04/19 08:22 Insulin Aspart (NovoLOG) BEFORE MEALS AND HS SUBQ 07/04/19 06:30 08/03/19 06:29 Morphine Sulfate (Morphine Sulfate) 2 mg Q4H PRN IVP severe Pain (Pain Scale 7-10) 07/03/19 21:45 07/10/19 21:44 Nitroglycerin (Ntg) 0.4 mg Q5M PRN SL Prn Chest Pain 07/03/19 21:45 08/02/19 21:44 Ondansetron HCl (Zofran) 4 mg Q6H PRN IVP Nausea & Vomiting 07/03/19 21:45 08/02/19 21:44 Pantoprazole (Protonix) 40 mg DAILY ORAL 07/04/19 09:00 08/03/19 08:59 07/04/19 08:23 Polyethylene Glycol (Miralax) 17 gm DAILYPRN PRN ORAL Constipation 07/03/19 21:45 08/02/19 21:44 Tamsulosin HCl (Flomax) 0.4 mg BEDTIME ORAL 07/04/19 21:00 08/03/19 20:59 Temazepam (Restoril) 15 mg HSPRN PRN ORAL Insomnia 07/03/19 21:45 07/10/19 21:44 Assessment/Plan Problem List: (1) Pacemaker malfunction ICD Codes: T82.111A - Breakdown (mechanical) of cardiac pulse generator ( battery), initial encounter SNOMED: 114245237 (2) Palpitation ICD Codes: R00.2 - Palpitations SNOMED: 35656140 (3) Ventricular mural thrombus ICD Codes: I21.3 - Ventricular mural thrombus SNOMED: 19978364 (4) Chronic anticoagulation ICD Codes: Z79.01 - terminologist (current) use of anticoagulants SNOMED: 125003682 (5) HTN (hypertension) ICD Codes: I10 - Essential (primary) hypertension SNOMED: 28410706 (6) Hx pulmonary embolism ICD Codes: Z86.711 - Hx pulmonary embolism SNOMED: 580808309 (7) Lumbar spondylosis ICD Codes: M47.9 - Lumbar spondylosis SNOMED: 306059622 (8) Diabetes mellitus ICD Codes: E11.9 - Type 2 diabetes mellitus without complications SNOMED: 10378216 Assessment/Plan: telemetry monitoring cardiology to see rate control symptomatic treatment Violet Schmid MD Jul 04, 2019 12:13
[2019-07-04] MEDS: Morphine Sulfate 2mg/ml Inj(IV/IM USE ONLY) IVP PRN ×2 (12:44→18:04)
--- NOTE | 2019-07-04 15:08 | NUR ---
*-* NO INSURANCE INFORMATION IN THE BAR UNABLE TO SEND CLINICALS OR REVIEWS *-*
--- NOTE | 2019-07-04 15:50 | NUR ---
CASE MANAGEMENT:REVIEW 64 YR OLD MALE WALKED IN TO OUR ER CC: CHEST PAIN. SOB. STATED HIS PACEMAKER IS MALFUNCTIONING SI:CHEST PAIN. PACEMAKER MALFUNCTION 98.3 70 16 138/81 97% ON RA K+5.2 TROPONIN(-) IS: 1L NS BOLUS : TO TELEMETRY IS: ASA PO QD ELIQUIS PO BID PLAN: CARDIAC CONSULT
--- NOTE | 2019-07-04 19:10 | NUR ---
NURSE NOTES: Received pt from KOREY Calvillo. Pt is awake and resting in bed in no acute distress. no complaints of pain. Iv site intact. Bed locked in lowest position, call light within reach. Will continue with plan of care.
[2019-07-04 20:00] VITALS: BP 102/42
[2019-07-04] MEDS: Tamsulosin 0.4mg cap ORAL SCH (21:12)
--- NOTE | 2019-07-04 23:17 | History & Physical ---
History and Physical History & Physicial Rik Montes MD Jul 04, 2019 23:17
[2019-07-05] VITALS: BP 106/46
--- NOTE | 2019-07-05 00:30 | History and Physical Report ---
DATE OF ADMISSION: 07/03/2019 CHIEF COMPLAINT: Tachycardia and chest pain. HISTORY OF PRESENT ILLNESS: This is a 64-year-old gentleman with past medical history significant for coronary artery disease with ventricular mural thrombosis, hypertension, BPH, diabetes type 2, and status post ICD who was presented to the emergency room complaining about chest pain, dizziness, and shortness of breath. Shortly after initial evaluation, the patient was noted to have tachycardia with a heart rate of 120 to 130 and subsequently, the patient was admitted to the hospital with supraventricular tachycardia. PAST MEDICAL HISTORY/PAST SURGICAL HISTORY: As above, history of coronary artery disease, ventricular mural thrombosis, hypertension, dyslipidemia, diabetes type 2, BPH, and status post ICD placement. The patient has a history of DVT, COPD, lumbar spondylosis, history of pulmonary embolism, and personality disorder with status post thoracotomy. MEDICATIONS AT HOME: Please refer to medication reconciliation. ALLERGIES: Hydrocodone and contrast dye. SOCIAL HISTORY: Denies any smoking, alcohol, or drugs at this time. FAMILY HISTORY: Noncontributory. REVIEW OF SYSTEMS: Mostly as above. Complained of palpitation, chest congestion, and chest pain. Denies any hemoptysis or hematochezia. Denies any fever or chills. Denies any nausea or vomiting. PHYSICAL EXAMINATION: VITAL SIGNS: On admission, temperature 98.2, pulse of 70, respirations 16, and blood pressure 138/81. GENERAL: The patient is awake and responsive, in no acute distress. HEAD AND NECK: Pupils are equal and reactive to light. Anicteric. Neck was supple. No JVD. LUNGS: Clear. No wheezing or rales. HEART: S1 and S2. Distant heart sounds. No murmur or gallops. ICD in the left-sided chest wall was noted. ABDOMEN: Soft, nondistended, and nontender. Positive bowel sounds. EXTREMITIES: No cyanosis, clubbing, or edema NEUROLOGIC: Cranial nerves II through XII grossly intact. Motor is 5/5 in all extremities. Gait is intact. RECTAL: Refused and deferred. GENITOURINARY: Refused and deferred. PSYCHIATRIC: Mood and affect are intact. LABORATORY AND DIAGNOSTIC DATA: On admission, WBC of 6.0, hemoglobin 12, hematocrit 38, and platelets are 184,000. Sodium 138, potassium 5.2, chloride 107, bicarbonate 20, BUN 14, and creatinine 1.0. First troponin 0.00. The patient's C-reactive protein less than 0.04. Glucose is 118 and calcium is 8.8. AST of 33, ALT of 17, and alkaline phosphatase of 56. Urine drug screen is negative. PT of 10.5, INR 1.0, and PTT of 30. Urinalysis, +1 leukocytes and 0 to 2 rbc, otherwise all negative. Chest x-ray, no acute process and parenchymal spaces are clear. Left-sided pacemaker was noted. ASSESSMENT: 1. Supraventricular tachycardia. 2. Pacemaker malfunctioning. 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 5. Hypertension. 6. Lumbar spondylosis. 7. Diabetes type 2. 8. BPH. PLAN: Admit the patient to telemetry. We will follow up with Cardiology consultation. The patient's code status is Full Code. DVT prophylaxis is Eliquis. We will follow up with the laboratory in the morning and discuss with the patient with regard to the pain medication extensively. Rik Montes M.D. DR: LEANDER JOB#: [id number] CC:
[2019-07-05] MEDS: Morphine Sulfate 2mg/ml Inj(IV/IM USE ONLY) IVP PRN ×3 (01:15→17:54)
[2019-07-05 04:00] VITALS: BP 110/50
[2019-07-05] MEDS: NovoLOG Insulin Flexpen SUBQ SCH ×4 (06:30→21:00)
--- NOTE | 2019-07-05 07:29 | NUR ---
HAND-OFF: Report given KOREY Cameron. Endorsed plan of care.
[2019-07-05 07:57] VITALS: BP 115/75
--- NOTE | 2019-07-05 07:57 | Pulmonology Progress Note ---
Assessment/Plan Problems: (1) Pacemaker malfunction (2) Palpitation (3) Ventricular mural thrombus (4) Chronic anticoagulation (5) HTN (hypertension) (6) Hx pulmonary embolism (7) Lumbar spondylosis (8) Diabetes mellitus Assessment/Plan no new complains telemetry monitoring cardiology to see rate control symptomatic treatment continue current treatment Subjective ROS Limited/Unobtainable: No Constitutional: Reports: no symptoms HEENT: Repors: no symptoms Allergies: Coded Allergies: HYDROCODONE (Verified Adverse Reaction, Intermediate, N/V, 10/08/15) Uncoded Allergies: CONTRAST DYE (Allergy, Unknown, 03/15/19) Objective Last 24 Hour Vital Signs Date Time Temp Pulse Resp B/P (MAP) Pulse Ox O2 Delivery O2 Flow Rate FiO2 07/05/19 04:00 67 07/05/19 04:00 97.9 69 16 110/50 (70) 99 07/05/19 00:00 92 07/05/19 00:00 97.7 69 16 106/46 (66) 99 07/04/19 21:00 Room Air 07/04/19 20:00 97.7 69 16 102/42 (62) 99 07/04/19 20:00 69 07/04/19 18:34 97.5 07/04/19 16:00 68 07/04/19 12:00 60 07/04/19 12:00 97.5 65 18 134/95 (108) 100 07/04/19 11:41 Room Air 07/04/19 08:56 96.6 71 19 98 07/04/19 08:00 62 Intake and Output 07/04/19 07/05/19 19:00 07:00 Output Total 4 ml Balance -4 ml Output Urine Total 4 ml General Appearance: WD/WN Respiratory/Chest: chest wall non-tender, lungs clear Cardiovascular: normal peripheral pulses, normal rate Abdomen: no scars Extremities: no cyanosis Skin: no ulcers Current Medications Medications (Trade) Dose Ordered Sig/Kristan Route PRN Reason Start Time Stop Time Status Last Admin Dose Admin Acetaminophen (Tylenol) 650 mg Q4H PRN ORAL FEVER 07/03/19 21:45 08/02/19 21:44 Albuterol/ Ipratropium (Albuterol/ Ipratropium) 3 ml Q4H PRN HHN Shortness of Breath 07/03/19 21:45 07/08/19 21:44 Apixaban (Eliquis) 5 mg BID ORAL 07/04/19 09:00 08/03/19 08:59 07/04/19 18:05 Aspirin (ASA) 162 mg DAILY ORAL 07/04/19 09:00 08/03/19 08:59 07/04/19 08:22 Atorvastatin Calcium (Lipitor) 10 mg BEDTIME ORAL 07/04/19 21:00 08/03/19 20:59 07/04/19 21:13 Dextrose (Dextrose 50%) 25 ml Q30M PRN IV Hypoglycemia 07/03/19 21:45 08/02/19 21:44 Dextrose (Dextrose 50%) 50 ml Q30M PRN IV Hypoglycemia 07/03/19 21:45 08/02/19 21:44 Diltiazem HCl (Cardizem) 10 mg Q1H PRN IV heart rate more than 120, 07/03/19 21:45 08/02/19 21:44 Enalaprilat (Vasotec) 2.5 mg Q6H PRN IV sbp more than 160 07/03/19 21:45 08/02/19 21:44 Finasteride (Proscar) 5 mg DAILY ORAL 07/04/19 09:00 08/03/19 08:59 07/04/19 08:22 Insulin Aspart (NovoLOG) BEFORE MEALS AND HS SUBQ 07/04/19 06:30 08/03/19 06:29 Morphine Sulfate (Morphine Sulfate) 2 mg Q4H PRN IVP severe Pain (Pain Scale 7-10) 07/03/19 21:45 07/10/19 21:44 07/05/19 01:15 Nitroglycerin (Ntg) 0.4 mg Q5M PRN SL Prn Chest Pain 07/03/19 21:45 08/02/19 21:44 Ondansetron HCl (Zofran) 4 mg Q6H PRN IVP Nausea & Vomiting 07/03/19 21:45 08/02/19 21:44 Pantoprazole (Protonix) 40 mg DAILY ORAL 07/04/19 09:00 08/03/19 08:59 07/04/19 08:23 Polyethylene Glycol (Miralax) 17 gm DAILYPRN PRN ORAL Constipation 07/03/19 21:45 08/02/19 21:44 Tamsulosin HCl (Flomax) 0.4 mg BEDTIME ORAL 07/04/19 21:00 08/03/19 20:59 07/04/19 21:12 Temazepam (Restoril) 15 mg HSPRN PRN ORAL Insomnia 07/03/19 21:45 07/10/19 21:44 Violet Schmid MD Jul 05, 2019 07:57
--- NOTE | 2019-07-05 08:35 | NUR ---
NURSE NOTES: Pt in bed in low position, call light within reach, pt in semi fowlers position resting, breakfast at bedside, pt Ox4 calm and cooperative but suspicious of others and can be aggressive with staff, pt is able to ambulate to restroom with steady gait, pt does report a pain level of 6/10, no s/s of distress or sob. Pacemaker has to be interrogated.
[2019-07-05] MEDS: Eliquis 5mg tablet ORAL SCH ×2 (09:21→17:55)
[2019-07-05] MEDS: Aspirin Baby 81mg ORAL SCH (09:22)
[2019-07-05 11:37] VITALS: BP 116/67
[2019-07-05 16:00] VITALS: BP 117/56
--- NOTE | 2019-07-05 16:26 | Cardiology Progress Note ---
Assessment/Plan Status: stable, progressing Status Narrative Mr Harden is a 64 year old man with hx of DVT./ PE, on chronic anticoagulation, cm, s/p ICD, chronic chest pain, likely of noncardiac origin. He has had several recent adm for CP, with negative evaluations, including stress nuclear studies and cardiac catheterization. He is adm w/ tachycardia and CP . Tachycardia tracings from ER not available. Pt w/ nl EKG and telemetry currently w/ SR 60s Assessment/Plan Will arrange icd interrogation and adjustment of settings if indicated. Would not favor further ischemia w/u for chest pain. Continue anticoagulation for hx of DVT/ PE Subjective ROS Limited/Unobtainable: No Subjective Cardiology for Dr. Askew Mr Harden is a 64 year old man with remote hx of DVT/ PE, on chronic anticoagulation w/ eliquis, cardiomyopathy, s/p ICD and hx of recurrent CP w/ negative ischemia evaluations in the past ( cardiac cath in 2018 without obstructive CAD). He was recently discharged from [facility] after adm last month with chest pain. He c/o recurrent CP as and was noted to be tachycardic , to 120-130 bpm , in ER. He was told ICD settings needed to be adjusted. Objective Last 24 Hour Vital Signs Date Time Temp Pulse Resp B/P (MAP) Pulse Ox O2 Delivery O2 Flow Rate FiO2 07/05/19 11:48 60 07/05/19 11:37 96.3 69 18 116/67 (83) 95 07/05/19 10:04 96.5 07/05/19 08:21 Room Air 07/05/19 07:57 96.5 65 20 115/75 (88) 99 07/05/19 07:41 70 07/05/19 04:00 67 07/05/19 04:00 97.9 69 16 110/50 (70) 99 07/05/19 00:00 92 07/05/19 00:00 97.7 69 16 106/46 (66) 99 07/04/19 21:00 Room Air 07/04/19 20:00 97.7 69 16 102/42 (62) 99 07/04/19 20:00 69 General Appearance: WD/WN, no apparent distress, alert EENT: PERRL/EOMI Neck: normal alignment, supple, normal inspection, no JVD Rhythm: NSR Cardiovascular: normal rate, regular rhythm, other - i/vi FÁTIMA along LSB Respiratory/Chest: lungs clear, normal breath sounds, no respiratory distress Abdomen: non tender, soft, no mass Extremities: no swelling Intake and Output 07/04/19 07/05/19 19:00 07:00 Output Total 4 ml Balance -4 ml Output Urine Total 4 ml Clara Mackenzie MD Jul 05, 2019 16:26
--- NOTE | 2019-07-05 18:07 | Internal Med Progress Note ---
Subjective Date of Service: Jul 05, 2019 Physician Name AmaCharbel Attending Physician Rik Montes MD Current Medications Medications (Trade) Dose Ordered Sig/Kristan Route PRN Reason Start Time Stop Time Status Last Admin Dose Admin Acetaminophen (Tylenol) 650 mg Q4H PRN ORAL FEVER 07/03/19 21:45 08/02/19 21:44 Albuterol/ Ipratropium (Albuterol/ Ipratropium) 3 ml Q4H PRN HHN Shortness of Breath 07/03/19 21:45 07/08/19 21:44 Apixaban (Eliquis) 5 mg BID ORAL 07/04/19 09:00 08/03/19 08:59 07/05/19 17:55 Aspirin (ASA) 162 mg DAILY ORAL 07/04/19 09:00 08/03/19 08:59 07/05/19 09:22 Atorvastatin Calcium (Lipitor) 10 mg BEDTIME ORAL 07/04/19 21:00 08/03/19 20:59 07/04/19 21:13 Dextrose (Dextrose 50%) 25 ml Q30M PRN IV Hypoglycemia 07/03/19 21:45 08/02/19 21:44 Dextrose (Dextrose 50%) 50 ml Q30M PRN IV Hypoglycemia 07/03/19 21:45 08/02/19 21:44 Diltiazem HCl (Cardizem) 10 mg Q1H PRN IV heart rate more than 120, 07/03/19 21:45 08/02/19 21:44 Enalaprilat (Vasotec) 2.5 mg Q6H PRN IV sbp more than 160 07/03/19 21:45 08/02/19 21:44 Finasteride (Proscar) 5 mg DAILY ORAL 07/04/19 09:00 08/03/19 08:59 07/05/19 09:22 Insulin Aspart (NovoLOG) BEFORE MEALS AND HS SUBQ 07/04/19 06:30 08/03/19 06:29 Morphine Sulfate (Morphine Sulfate) 2 mg Q4H PRN IVP severe Pain (Pain Scale 7-10) 07/03/19 21:45 07/10/19 21:44 07/05/19 17:54 Nitroglycerin (Ntg) 0.4 mg Q5M PRN SL Prn Chest Pain 07/03/19 21:45 08/02/19 21:44 Ondansetron HCl (Zofran) 4 mg Q6H PRN IVP Nausea & Vomiting 07/03/19 21:45 08/02/19 21:44 Pantoprazole (Protonix) 40 mg DAILY ORAL 07/04/19 09:00 08/03/19 08:59 07/05/19 09:21 Polyethylene Glycol (Miralax) 17 gm DAILYPRN PRN ORAL Constipation 07/03/19 21:45 08/02/19 21:44 Tamsulosin HCl (Flomax) 0.4 mg BEDTIME ORAL 07/04/19 21:00 08/03/19 20:59 07/04/19 21:12 Temazepam (Restoril) 15 mg HSPRN PRN ORAL Insomnia 07/03/19 21:45 07/10/19 21:44 Allergies: Coded Allergies: HYDROCODONE (Verified Adverse Reaction, Intermediate, N/V, 10/08/15) Uncoded Allergies: CONTRAST DYE (Allergy, Unknown, 03/15/19) ROS Limited/Unobtainable: No Constitutional: Reports: no symptoms Cardiovascular: Reports: chest pain Respiratory: Reports: no symptoms Gastrointestinal/Abdominal: Reports: no symptoms Genitourinary: Reports: no symptoms Neurologic/Psychiatric: Reports: no symptoms Subjective 64 YO M admitted with chest pain. Now supraventricular tachycardia. Cover for Int Rajesh-Dr Montes Objective Last Vital Signs Date Time Temp Pulse Resp B/P (MAP) Pulse Ox O2 Delivery O2 Flow Rate FiO2 07/05/19 16:16 60 16 98 Room Air 21 07/05/19 16:00 97.5 117/56 (76) Intake and Output 07/04/19 07/05/19 19:00 07:00 Output Total 4 ml Balance -4 ml Output Urine Total 4 ml Objective PHYSICAL EXAMINATION: GENERAL: The patient is awake and responsive, in no acute distress. HEAD AND NECK: Pupils are equal and reactive to light. Anicteric. Neck was supple. No JVD. LUNGS: Clear. No wheezing or rales. HEART: S1 and S2. Distant heart sounds. No murmur or gallops. ICD in the left-sided chest wall was noted. ABDOMEN: Soft, nondistended, and nontender. Positive bowel sounds. EXTREMITIES: No cyanosis, clubbing, or edema NEUROLOGIC: Cranial nerves II through XII grossly intact. Motor is 5/5 in all extremities. Gait is intact. RECTAL: Refused and deferred. GENITOURINARY: Refused and deferred. PSYCHIATRIC: Mood and affect are intact. Assessment/Plan Assessment/Plan ASSESSMENT: 1. Supraventricular tachycardia. 2. Pacemaker malfunctioning. 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 5. Hypertension. 6. Lumbar spondylosis. 7. Diabetes type 2. 8. BPH. PLAN: Admit the patient to telemetry. We will follow up with Cardiology consultation. The patient's code status is Full Code. DVT prophylaxis is Eliquis. We will follow up with the laboratory in the morning and discuss with the patient with regard to the pain medication extensively. Charbel Serrato MD Jul 05, 2019 18:07
--- NOTE | 2019-07-05 19:16 | NUR ---
HAND-OFF: Report given to Moisés Charles.
[2019-07-05 20:00] VITALS: BP 135/72
--- NOTE | 2019-07-05 21:18 | NUR ---
NURSE NOTES: Went into patient's room to give 2100 meds. Patient stated that he wants another nurse. When asked for the reason, patient just said "go talk to them, I told them 20 minutes ago."
--- NOTE | 2019-07-05 21:30 | NUR ---
NURSE NOTES: Charge nurse notified, patient transferred to Naz NAIR. Report given to Naz NAIR.
[2019-07-05] MEDS: Tamsulosin 0.4mg cap ORAL SCH (21:33)
--- NOTE | 2019-07-05 21:44 | NUR ---
NURSE NOTES: Received pt from KOREY Curiel. Pt awake, alert, and talkative. Bed in lowest position. Call light within reach. Will continue to monitor.
[2019-07-06] VITALS: BP 113/70
[2019-07-06] MEDS: Morphine Sulfate 2mg/ml Inj(IV/IM USE ONLY) IVP PRN ×4 (00:11→23:07)
[2019-07-06 04:00] VITALS: BP 126/75
[2019-07-06] MEDS: NovoLOG Insulin Flexpen SUBQ SCH ×4 (06:30→20:54)
--- NOTE | 2019-07-06 07:29 | NUR ---
HAND-OFF: Report given to KOREY Pierce. Pt stable.
--- NOTE | 2019-07-06 07:30 | NUR ---
NURSE NOTES: Received pt from HASMUKH NAIR. Pt is A&O X4. Pt is in RA, no SOB or acute respiratory distress noted. pt has intact iv access RH 22G SL. Pt is on continues heart monitoring. pt is eating breakfast independently. no complain of pain at this moment. all needs attended, bed is locked and is in the lowest position, call light within easy reach. will continue to monitor.
[2019-07-06 07:34] LABS: EOSINOPHILS % (AUTO) 2.4 % (0.0-3.0); HEMATOCRIT 37.9 % (42.0-52.0); HEMOGLOBIN 12.6 G/DL (14.2-18.0); LYMPHOCYTES % (AUTO) 22.5 % (20.0-45.0); MEAN CORPUSCULAR VOLUME 83 FL (80-99); MONOCYTES % (AUTO) 8.9 % (1.0-10.0); NEUTROPHILS % (AUTO) 65.3 % (45.0-75.0); PLATELET COUNT 177 K/UL (150-450); RED BLOOD COUNT 4.55 M/UL (4.70-6.10); RED CELL DISTRIBUTION WIDTH 15.4 % (11.6-14.8); WHITE BLOOD COUNT 6.8 K/UL (4.8-10.8)
[2019-07-06 08:00] VITALS: BP 122/71
[2019-07-06 08:06] LABS: ALANINE AMINOTRANSFERASE 18 U/L (12-78); ALBUMIN 3.4 G/DL (3.4-5.0); ALKALINE PHOSPHATASE 63 U/L (46-116); ANION GAP 10 mmol/L (5-15); ASPARTATE AMINO TRANSFERASE 12 U/L (15-37); BILIRUBIN,TOTAL 0.3 MG/DL (0.2-1.0); BLOOD UREA NITROGEN 19 mg/dL (7-18); CALCIUM 8.4 MG/DL (8.5-10.1); CARBON DIOXIDE 23 MMOL/L (21-32); CHLORIDE 109 MMOL/L (98-107); CREATININE 1.1 MG/DL (0.55-1.30); PHOSPHORUS 3.4 MG/DL (2.5-4.9); POTASSIUM 4.1 MMOL/L (3.5-5.1); SODIUM 142 MMOL/L (136-145)
[2019-07-06] MEDS: Eliquis 5mg tablet ORAL SCH ×2 (09:06→17:01)
[2019-07-06] MEDS: Aspirin Baby 81mg ORAL SCH (09:07)
[2019-07-06 12:00] VITALS: BP 102/63
--- NOTE | 2019-07-06 14:36 | Cardiology Progress Note ---
Assessment/Plan Status: stable, unchanged Status Narrative Mr Harden is a 64 year old man with hx of DVT./ PE, on chronic anticoagulation, cm, s/p ICD, chronic chest pain, likely of noncardiac origin. He has been admitted here q month since February , and has also been admitted to several other local hospitals He is adm w/ tachycardia and CP . Tachycardia tracings from ER not available. Pt w/ nl EKG and telemetry currently w/ SR 60s Pacemaker was checked today - normal pacing, sensing thresholds and no atrial or ventricular tachyarrhythmias detected. Assessment/Plan Pacemaker interrogated- no adjustment of settings needed. Would not favor further ischemia w/u for chest pain, as he has had stress nuclear studies and cath in the recent past Continue anticoagulation for hx of DVT/ PE dc plan per primary MD Subjective Subjective Cardiology for Dr. Askew Mr Harden appears comfortable. He c/o chest pain Objective Last 24 Hour Vital Signs Date Time Temp Pulse Resp B/P (MAP) Pulse Ox O2 Delivery O2 Flow Rate FiO2 07/06/19 12:00 96.8 60 20 102/63 (76) 98 07/06/19 11:43 60 07/06/19 10:19 96.6 07/06/19 09:00 Room Air 07/06/19 08:08 68 20 99 Room Air 21 07/06/19 08:00 96.6 63 20 122/71 (88) 100 07/06/19 07:58 69 07/06/19 04:00 97.6 89 16 126/75 (92) 99 07/06/19 04:00 62 07/06/19 00:00 96.6 60 18 113/70 (84) 99 07/06/19 00:00 60 07/05/19 21:00 Room Air 07/05/19 20:14 72 20 99 Room Air 21 07/05/19 20:00 97.0 80 15 135/72 (93) 97 07/05/19 20:00 100 07/05/19 16:16 60 16 98 Room Air 21 07/05/19 16:00 97.5 64 18 117/56 (76) 07/05/19 15:56 62 General Appearance: WD/WN, no apparent distress, alert EENT: PERRL/EOMI Neck: supple, no JVD Rhythm: NSR Cardiovascular: normal rate, regular rhythm, systolic murmur - ii/vi FÁTIMA along LSB Respiratory/Chest: lungs clear Abdomen: non tender, soft Extremities: no swelling Intake and Output 07/05/19 07/06/19 19:00 07:00 Intake Total 1240 ml 240 ml Output Total 3 ml Balance 1240 ml 237 ml Intake Oral 1240 ml 240 ml Output Urine Total 3 ml # Voids 4 1 Laboratory Tests Test 07/06/19 07:05 White Blood Count 6.8 K/UL (4.8-10.8) Red Blood Count 4.55 M/UL (4.70-6.10) L Hemoglobin 12.6 G/DL (14.2-18.0) L Hematocrit 37.9 % (42.0-52.0) L Mean Corpuscular Volume 83 FL (80-99) Mean Corpuscular Hemoglobin 27.6 PG (27.0-31.0) Mean Corpuscular Hemoglobin Concent 33.1 G/DL (32.0-36.0) Red Cell Distribution Width 15.4 % (11.6-14.8) H Platelet Count 177 K/UL (150-450) Mean Platelet Volume 8.5 FL (6.5-10.1) Neutrophils (%) (Auto) 65.3 % (45.0-75.0) Lymphocytes (%) (Auto) 22.5 % (20.0-45.0) Monocytes (%) (Auto) 8.9 % (1.0-10.0) Eosinophils (%) (Auto) 2.4 % (0.0-3.0) Basophils (%) (Auto) 1.0 % (0.0-2.0) Sodium Level 142 MMOL/L (136-145) Potassium Level 4.1 MMOL/L (3.5-5.1) Chloride Level 109 MMOL/L (98-107) H Carbon Dioxide Level 23 MMOL/L (21-32) Anion Gap 10 mmol/L (5-15) Blood Urea Nitrogen 19 mg/dL (7-18) H Creatinine 1.1 MG/DL (0.55-1.30) Estimat Glomerular Filtration Rate > 60 mL/min (>60) Glucose Level 119 MG/DL (74-106) H Calcium Level 8.4 MG/DL (8.5-10.1) L Phosphorus Level 3.4 MG/DL (2.5-4.9) Magnesium Level 2.2 MG/DL (1.8-2.4) Total Bilirubin 0.3 MG/DL (0.2-1.0) Aspartate Amino Transf (AST/SGOT) 12 U/L (15-37) L Alanine Aminotransferase (ALT/SGPT) 18 U/L (12-78) Alkaline Phosphatase 63 U/L (46-116) Troponin I 0.000 ng/mL (0.000-0.056) Total Protein 6.8 G/DL (6.4-8.2) Albumin 3.4 G/DL (3.4-5.0) Globulin 3.4 g/dL Albumin/Globulin Ratio 1.0 (1.0-2.7) Clara Mackenzie MD Jul 06, 2019 14:36
--- NOTE | 2019-07-06 15:03 | Internal Med Progress Note ---
Subjective Date of Service: Jul 06, 2019 Physician Name AmaCharbel Attending Physician Rik Montes MD Current Medications Medications (Trade) Dose Ordered Sig/Kristan Route PRN Reason Start Time Stop Time Status Last Admin Dose Admin Acetaminophen (Tylenol) 650 mg Q4H PRN ORAL FEVER 07/03/19 21:45 08/02/19 21:44 Albuterol/ Ipratropium (Albuterol/ Ipratropium) 3 ml Q4H PRN HHN Shortness of Breath 07/03/19 21:45 07/08/19 21:44 Apixaban (Eliquis) 5 mg BID ORAL 07/04/19 09:00 08/03/19 08:59 07/06/19 09:06 Aspirin (ASA) 162 mg DAILY ORAL 07/04/19 09:00 08/03/19 08:59 07/06/19 09:07 Atorvastatin Calcium (Lipitor) 10 mg BEDTIME ORAL 07/04/19 21:00 08/03/19 20:59 07/05/19 21:33 Dextrose (Dextrose 50%) 25 ml Q30M PRN IV Hypoglycemia 07/03/19 21:45 08/02/19 21:44 Dextrose (Dextrose 50%) 50 ml Q30M PRN IV Hypoglycemia 07/03/19 21:45 08/02/19 21:44 Diltiazem HCl (Cardizem) 10 mg Q1H PRN IV heart rate more than 120, 07/03/19 21:45 08/02/19 21:44 Enalaprilat (Vasotec) 2.5 mg Q6H PRN IV sbp more than 160 07/03/19 21:45 08/02/19 21:44 Finasteride (Proscar) 5 mg DAILY ORAL 07/04/19 09:00 08/03/19 08:59 07/06/19 09:06 Insulin Aspart (NovoLOG) BEFORE MEALS AND HS SUBQ 07/04/19 06:30 08/03/19 06:29 07/06/19 12:09 Morphine Sulfate (Morphine Sulfate) 2 mg Q4H PRN IVP severe Pain (Pain Scale 7-10) 07/03/19 21:45 07/10/19 21:44 07/06/19 09:49 Nitroglycerin (Ntg) 0.4 mg Q5M PRN SL Prn Chest Pain 07/03/19 21:45 08/02/19 21:44 Ondansetron HCl (Zofran) 4 mg Q6H PRN IVP Nausea & Vomiting 07/03/19 21:45 08/02/19 21:44 Pantoprazole (Protonix) 40 mg DAILY ORAL 07/04/19 09:00 08/03/19 08:59 07/06/19 09:06 Polyethylene Glycol (Miralax) 17 gm DAILYPRN PRN ORAL Constipation 07/03/19 21:45 08/02/19 21:44 Tamsulosin HCl (Flomax) 0.4 mg BEDTIME ORAL 07/04/19 21:00 08/03/19 20:59 07/05/19 21:33 Temazepam (Restoril) 15 mg HSPRN PRN ORAL Insomnia 07/03/19 21:45 07/10/19 21:44 Allergies: Coded Allergies: HYDROCODONE (Verified Adverse Reaction, Intermediate, N/V, 10/08/15) Uncoded Allergies: CONTRAST DYE (Allergy, Unknown, 03/15/19) ROS Limited/Unobtainable: No Constitutional: Reports: no symptoms HEENT: Reports: no symptoms Cardiovascular: Reports: chest pain Respiratory: Reports: no symptoms Gastrointestinal/Abdominal: Reports: no symptoms Genitourinary: Reports: no symptoms Neurologic/Psychiatric: Reports: no symptoms Subjective 64 YO M admitted with chest pain. Now supraventricular tachycardia. Cover for Int Rajesh-Dr Montes Objective Last Vital Signs Date Time Temp Pulse Resp B/P (MAP) Pulse Ox O2 Delivery O2 Flow Rate FiO2 07/06/19 12:00 96.8 60 20 102/63 (76) 98 07/06/19 09:00 Room Air 07/06/19 08:08 21 Laboratory Tests Test 07/06/19 07:05 White Blood Count 6.8 K/UL (4.8-10.8) Red Blood Count 4.55 M/UL (4.70-6.10) L Hemoglobin 12.6 G/DL (14.2-18.0) L Hematocrit 37.9 % (42.0-52.0) L Mean Corpuscular Volume 83 FL (80-99) Mean Corpuscular Hemoglobin 27.6 PG (27.0-31.0) Mean Corpuscular Hemoglobin Concent 33.1 G/DL (32.0-36.0) Red Cell Distribution Width 15.4 % (11.6-14.8) H Platelet Count 177 K/UL (150-450) Mean Platelet Volume 8.5 FL (6.5-10.1) Neutrophils (%) (Auto) 65.3 % (45.0-75.0) Lymphocytes (%) (Auto) 22.5 % (20.0-45.0) Monocytes (%) (Auto) 8.9 % (1.0-10.0) Eosinophils (%) (Auto) 2.4 % (0.0-3.0) Basophils (%) (Auto) 1.0 % (0.0-2.0) Sodium Level 142 MMOL/L (136-145) Potassium Level 4.1 MMOL/L (3.5-5.1) Chloride Level 109 MMOL/L (98-107) H Carbon Dioxide Level 23 MMOL/L (21-32) Anion Gap 10 mmol/L (5-15) Blood Urea Nitrogen 19 mg/dL (7-18) H Creatinine 1.1 MG/DL (0.55-1.30) Estimat Glomerular Filtration Rate > 60 mL/min (>60) Glucose Level 119 MG/DL (74-106) H Calcium Level 8.4 MG/DL (8.5-10.1) L Phosphorus Level 3.4 MG/DL (2.5-4.9) Magnesium Level 2.2 MG/DL (1.8-2.4) Total Bilirubin 0.3 MG/DL (0.2-1.0) Aspartate Amino Transf (AST/SGOT) 12 U/L (15-37) L Alanine Aminotransferase (ALT/SGPT) 18 U/L (12-78) Alkaline Phosphatase 63 U/L (46-116) Troponin I 0.000 ng/mL (0.000-0.056) Total Protein 6.8 G/DL (6.4-8.2) Albumin 3.4 G/DL (3.4-5.0) Globulin 3.4 g/dL Albumin/Globulin Ratio 1.0 (1.0-2.7) Intake and Output 07/05/19 07/06/19 19:00 07:00 Intake Total 1240 ml 240 ml Output Total 3 ml Balance 1240 ml 237 ml Intake Oral 1240 ml 240 ml Output Urine Total 3 ml # Voids 4 1 Objective PHYSICAL EXAMINATION: GENERAL: The patient is awake and responsive, in no acute distress. HEAD AND NECK: Pupils are equal and reactive to light. Anicteric. Neck was supple. No JVD. LUNGS: Clear. No wheezing or rales. HEART: S1 and S2. Distant heart sounds. No murmur or gallops. ICD in the left-sided chest wall was noted. ABDOMEN: Soft, nondistended, and nontender. Positive bowel sounds. EXTREMITIES: No cyanosis, clubbing, or edema NEUROLOGIC: Cranial nerves II through XII grossly intact. Motor is 5/5 in all extremities. Gait is intact. RECTAL: Refused and deferred. GENITOURINARY: Refused and deferred. PSYCHIATRIC: Mood and affect are intact. Assessment/Plan Assessment/Plan ASSESSMENT: 1. Supraventricular tachycardia. 2. Pacemaker malfunctioning. 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 5. Hypertension. 6. Lumbar spondylosis. 7. Diabetes type 2. 8. BPH. PLAN: 1. Admit the patient to telemetry. 2. Cardiology=Drs. Askew and Avril-no further cardiac workup indicated 3. The patient's code status is Full Code. 4. DVT prophylaxis is Eliquis-H/O DVT and PE. 5. Discharge planning Charbel Serrato MD Jul 06, 2019 15:03
[2019-07-06 15:54] VITALS: BP 121/74
--- NOTE | 2019-07-06 15:57 | Pulmonology Progress Note ---
Assessment/Plan Problems: (1) Pacemaker malfunction (2) Palpitation (3) Ventricular mural thrombus (4) Chronic anticoagulation (5) HTN (hypertension) (6) Hx pulmonary embolism (7) Lumbar spondylosis (8) Diabetes mellitus Assessment/Plan no new complains telemetry monitoring cardiology input appreciated rate control symptomatic treatment continue current treatment Subjective ROS Limited/Unobtainable: No Constitutional: Reports: no symptoms HEENT: Repors: no symptoms Respiratory: Reports: no symptoms Allergies: Coded Allergies: HYDROCODONE (Verified Adverse Reaction, Intermediate, N/V, 10/08/15) Uncoded Allergies: CONTRAST DYE (Allergy, Unknown, 03/15/19) Objective Last 24 Hour Vital Signs Date Time Temp Pulse Resp B/P (MAP) Pulse Ox O2 Delivery O2 Flow Rate FiO2 07/06/19 15:54 97.7 64 20 121/74 (90) 99 07/06/19 12:00 96.8 60 20 102/63 (76) 98 07/06/19 11:43 60 07/06/19 10:19 96.6 07/06/19 09:00 Room Air 07/06/19 08:08 68 20 99 Room Air 21 07/06/19 08:00 96.6 63 20 122/71 (88) 100 07/06/19 07:58 69 07/06/19 04:00 97.6 89 16 126/75 (92) 99 07/06/19 04:00 62 07/06/19 00:00 96.6 60 18 113/70 (84) 99 07/06/19 00:00 60 07/05/19 21:00 Room Air 07/05/19 20:14 72 20 99 Room Air 21 07/05/19 20:00 97.0 80 15 135/72 (93) 97 07/05/19 20:00 100 07/05/19 16:16 60 16 98 Room Air 21 07/05/19 16:00 97.5 64 18 117/56 (76) Intake and Output 07/05/19 07/06/19 19:00 07:00 Intake Total 1240 ml 240 ml Output Total 3 ml Balance 1240 ml 237 ml Intake Oral 1240 ml 240 ml Output Urine Total 3 ml # Voids 4 1 General Appearance: WD/WN HEENT: normocephalic, atraumatic Respiratory/Chest: chest wall non-tender, lungs clear Cardiovascular: normal peripheral pulses, regular rhythm Abdomen: normal bowel sounds, soft, non tender Genitourinary: normal external genitalia Extremities: no cyanosis 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 II-XII grossly normal Laboratory Tests 07/06/19 07:05: White Blood Count 6.8, Red Blood Count 4.55L, Hemoglobin 12.6L, Hematocrit 37.9L , Mean Corpuscular Volume 83, Mean Corpuscular Hemoglobin 27.6, Mean Corpuscular Hemoglobin Concent 33.1, Red Cell Distribution Width 15.4H, Platelet Count 177, Mean Platelet Volume 8.5, Neutrophils (%) (Auto) 65.3, Lymphocytes (%) (Auto) 22.5, Monocytes (%) (Auto) 8.9, Eosinophils (%) (Auto) 2.4, Basophils (%) (Auto) 1.0, Sodium Level 142, Potassium Level 4.1, Chloride Level 109H, Carbon Dioxide Level 23, Anion Gap 10, Blood Urea Nitrogen 19H, Creatinine 1.1, Estimat Glomerular Filtration Rate > 60, Glucose Level 119H, Calcium Level 8.4L, Phosphorus Level 3.4, Magnesium Level 2.2, Total Bilirubin 0.3, Aspartate Amino Transf (AST/SGOT) 12L, Alanine Aminotransferase (ALT/SGPT) 18, Alkaline Phosphatase 63, Troponin I 0.000, Total Protein 6.8, Albumin 3.4, Globulin 3.4, Albumin/Globulin Ratio 1.0 Current Medications Medications (Trade) Dose Ordered Sig/Kristan Route PRN Reason Start Time Stop Time Status Last Admin Dose Admin Acetaminophen (Tylenol) 650 mg Q4H PRN ORAL FEVER 07/03/19 21:45 08/02/19 21:44 Albuterol/ Ipratropium (Albuterol/ Ipratropium) 3 ml Q4H PRN HHN Shortness of Breath 07/03/19 21:45 07/08/19 21:44 Apixaban (Eliquis) 5 mg BID ORAL 07/04/19 09:00 08/03/19 08:59 07/06/19 09:06 Aspirin (ASA) 162 mg DAILY ORAL 07/04/19 09:00 08/03/19 08:59 07/06/19 09:07 Atorvastatin Calcium (Lipitor) 10 mg BEDTIME ORAL 07/04/19 21:00 08/03/19 20:59 07/05/19 21:33 Dextrose (Dextrose 50%) 25 ml Q30M PRN IV Hypoglycemia 07/03/19 21:45 08/02/19 21:44 Dextrose (Dextrose 50%) 50 ml Q30M PRN IV Hypoglycemia 07/03/19 21:45 08/02/19 21:44 Diltiazem HCl (Cardizem) 10 mg Q1H PRN IV heart rate more than 120, 07/03/19 21:45 08/02/19 21:44 Enalaprilat (Vasotec) 2.5 mg Q6H PRN IV sbp more than 160 07/03/19 21:45 08/02/19 21:44 Finasteride (Proscar) 5 mg DAILY ORAL 07/04/19 09:00 08/03/19 08:59 07/06/19 09:06 Insulin Aspart (NovoLOG) BEFORE MEALS AND HS SUBQ 07/04/19 06:30 08/03/19 06:29 07/06/19 12:09 Morphine Sulfate (Morphine Sulfate) 2 mg Q4H PRN IVP severe Pain (Pain Scale 7-10) 07/03/19 21:45 07/10/19 21:44 07/06/19 09:49 Nitroglycerin (Ntg) 0.4 mg Q5M PRN SL Prn Chest Pain 07/03/19 21:45 08/02/19 21:44 Ondansetron HCl (Zofran) 4 mg Q6H PRN IVP Nausea & Vomiting 07/03/19 21:45 08/02/19 21:44 Pantoprazole (Protonix) 40 mg DAILY ORAL 07/04/19 09:00 08/03/19 08:59 07/06/19 09:06 Polyethylene Glycol (Miralax) 17 gm DAILYPRN PRN ORAL Constipation 07/03/19 21:45 08/02/19 21:44 Tamsulosin HCl (Flomax) 0.4 mg BEDTIME ORAL 07/04/19 21:00 08/03/19 20:59 07/05/19 21:33 Temazepam (Restoril) 15 mg HSPRN PRN ORAL Insomnia 07/03/19 21:45 07/10/19 21:44 Violet Schmid MD Jul 06, 2019 15:57
--- NOTE | 2019-07-06 18:59 | NUR ---
NURSE NOTES: Received pt from KOREY Pierce. Pt is currently resting in bed and sleeping. Pt awoke to door opening and remains alert and oriented x4. Pt is SR on tele monitor and shows no s/sx of acute cardiac distress. Pacemaker to L Chest noted. Pt in on RA with no s/sx of respiratory distress noted, pt denies SOB. Pt currently noted no pain but slight discomfort, pt educated on pain management and will call for further assistance. R hand 22g IV catheter remains asymptomatic, intact and patent. Dressing noted to be clean and dry. Pt continues resting in bed; bed remains in the lowest position with safety wheels engaged, side rails up x2, call light within reach and bed alarm activated. Pt noted to put down side rails on one side of bed, pt educated on safety and fall precautions. While pt ambulates, pt encouraged to use call light. Will continue to monitor. Will continue with plan of care.
--- NOTE | 2019-07-06 19:11 | NUR ---
HAND-OFF: Report given to NATALIE NAIR. Pt is awake and stabe.
[2019-07-06 20:00] VITALS: BP 105/58
[2019-07-06] MEDS: Tamsulosin 0.4mg cap ORAL SCH (20:50)
--- NOTE | 2019-07-06 22:00 | NUR ---
NURSE NOTES: Pt provided with materials for bed bath and oral care. Pt performed evening care with minimal assistance. Pt provided with a linen change. Pt continues resting in bed, clean and dry. Bed remains in lowest position with safety wheels engaged, side rails up x2, call light within reach and bed alarm activated. While pt noted to be ambulatory, pt encouraged to use call light for assistance. Will continue to monitor.
--- NOTE | 2019-07-06 23:07 | NUR ---
NURSE NOTES: Pt notes sever pain and requests pain medication. Pt rates pain 7-8/10 and constant, sharp and cramping in nature. Noted to be generalized. VS remain stable, no changes present on current physical assessment. Pt medicated with morphine per PRN order. Will reassess and continue to monitor.
[2019-07-07] VITALS: BP 115/75
[2019-07-07 04:00] VITALS: BP 106/68
[2019-07-07] MEDS: NovoLOG Insulin Flexpen SUBQ SCH ×4 (05:49→21:00)
--- NOTE | 2019-07-07 05:49 | NUR ---
NURSE NOTES: Pt refuses bedside blood glucose testing, insulin therefore held. Pt educated and continues to decline. Will try again later. Will continue to monitor.
[2019-07-07 07:10] LABS: BASOPHILS % (AUTO) 1.1 % (0.0-2.0); EOSINOPHILS % (AUTO) 2.3 % (0.0-3.0); HEMATOCRIT 43.5 % (42.0-52.0); HEMOGLOBIN 14.2 G/DL (14.2-18.0); LYMPHOCYTES % (AUTO) 19.4 % (20.0-45.0); MEAN CORPUSCULAR VOLUME 84 FL (80-99); MONOCYTES % (AUTO) 10.4 % (1.0-10.0); NEUTROPHILS % (AUTO) 66.8 % (45.0-75.0); PLATELET COUNT 213 K/UL (150-450); RED BLOOD COUNT 5.16 M/UL (4.70-6.10); RED CELL DISTRIBUTION WIDTH 15.1 % (11.6-14.8); WHITE BLOOD COUNT 8.7 K/UL (4.8-10.8)
--- NOTE | 2019-07-07 07:15 | NUR ---
HAND-OFF: Report given to KOREY Pierce. Pt remains stable at this time.
--- NOTE | 2019-07-07 07:30 | NUR ---
NURSE NOTES: Received pt from NATALIE RN. Pt is A&O X4. Pt is in RA, no SOB or acute respiratory distress noted. pt has intact iv access RH 22G SL. Pt is on continues heart monitoring. pt is eating breakfast independently. no complain of pain at this moment. all needs attended, bed is locked and is in the lowest position, call light within easy reach. will continue to monitor.
[2019-07-07 07:55] LABS: ANION GAP 13 mmol/L (5-15); BLOOD UREA NITROGEN 18 mg/dL (7-18); CALCIUM 8.9 MG/DL (8.5-10.1); CARBON DIOXIDE 23 MMOL/L (21-32); CHLORIDE 105 MMOL/L (98-107); CREATININE 1.3 MG/DL (0.55-1.30); POTASSIUM 3.7 MMOL/L (3.5-5.1); SODIUM 141 MMOL/L (136-145)
[2019-07-07 08:00] VITALS: BP 118/87
[2019-07-07] MEDS: Eliquis 5mg tablet ORAL SCH ×2 (08:13→17:31)
[2019-07-07] MEDS: Morphine Sulfate 2mg/ml Inj(IV/IM USE ONLY) IVP PRN ×3 (08:13→21:38)
[2019-07-07] MEDS: Aspirin Baby 81mg ORAL SCH (08:13)
--- NOTE | 2019-07-07 08:47 | NUR ---
*-* INSURANCE *-* ALL CLINICALS AND REVIEWS HAVE BEEN FAXED TO: [facility] KEVNIM: LILLIAM REF# [id number] F: [phone] Addendum: 07/07/19 at 0849 by ANAM GOODEN CM P: [phone]
[2019-07-07 12:00] VITALS: BP 103/61
--- NOTE | 2019-07-07 12:11 | Pulmonology Progress Note ---
Assessment/Plan Problems: (1) Pacemaker malfunction (2) Palpitation (3) Ventricular mural thrombus (4) Chronic anticoagulation (5) HTN (hypertension) (6) Hx pulmonary embolism (7) Lumbar spondylosis (8) Diabetes mellitus Assessment/Plan no new complains telemetry monitoring cardiology input appreciated rate control symptomatic treatment continue current treatment Subjective ROS Limited/Unobtainable: No Constitutional: Reports: no symptoms HEENT: Repors: no symptoms Allergies: Coded Allergies: HYDROCODONE (Verified Adverse Reaction, Intermediate, N/V, 10/08/15) Uncoded Allergies: CONTRAST DYE (Allergy, Unknown, 03/15/19) Objective Last 24 Hour Vital Signs Date Time Temp Pulse Resp B/P (MAP) Pulse Ox O2 Delivery O2 Flow Rate FiO2 07/07/19 08:43 98.7 07/07/19 08:08 64 07/07/19 08:00 98.7 64 20 118/87 (97) 96 07/07/19 04:00 98.0 60 18 106/68 (81) 100 07/07/19 03:36 63 07/07/19 00:00 97.4 63 18 115/75 (88) 98 07/06/19 23:32 63 07/06/19 21:30 61 07/06/19 21:00 Room Air 07/06/19 20:00 97.5 61 20 105/58 (74) 97 07/06/19 18:30 64 20 97 Room Air 21 07/06/19 16:00 63 07/06/19 15:54 97.7 64 20 121/74 (90) 99 Intake and Output 07/06/19 07/07/19 19:00 07:00 Intake Total 930 ml 382 ml Output Total 300 ml 500 ml Balance 630 ml -118 ml Intake Oral 930 ml 382 ml Output Urine Total 300 ml 500 ml # Voids 2 General Appearance: WD/WN HEENT: normocephalic, anicteric Respiratory/Chest: chest wall non-tender, lungs clear Cardiovascular: normal rate, regular rhythm Abdomen: normal bowel sounds, no organomegaly Extremities: no cyanosis Skin: no rash 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 normal, no motor/sensory deficits Laboratory Tests 07/07/19 06:39: White Blood Count 8.7, Red Blood Count 5.16, Hemoglobin 14.2, Hematocrit 43.5, Mean Corpuscular Volume 84, Mean Corpuscular Hemoglobin 27.5, Mean Corpuscular Hemoglobin Concent 32.6, Red Cell Distribution Width 15.1H, Platelet Count 213, Mean Platelet Volume 9.7, Neutrophils (%) (Auto) 66.8, Lymphocytes (%) (Auto) 19.4L, Monocytes (%) (Auto) 10.4H, Eosinophils (%) (Auto) 2.3, Basophils (%) ( Auto) 1.1, Sodium Level 141, Potassium Level 3.7, Chloride Level 105, Carbon Dioxide Level 23, Anion Gap 13, Blood Urea Nitrogen 18, Creatinine 1.3, Estimat Glomerular Filtration Rate > 60, Glucose Level 128H, Calcium Level 8.9 Current Medications Medications (Trade) Dose Ordered Sig/Kristan Route PRN Reason Start Time Stop Time Status Last Admin Dose Admin Acetaminophen (Tylenol) 650 mg Q4H PRN ORAL FEVER 07/03/19 21:45 08/02/19 21:44 Albuterol/ Ipratropium (Albuterol/ Ipratropium) 3 ml Q4H PRN HHN Shortness of Breath 07/03/19 21:45 07/08/19 21:44 Apixaban (Eliquis) 5 mg BID ORAL 07/04/19 09:00 08/03/19 08:59 07/07/19 08:13 Aspirin (ASA) 162 mg DAILY ORAL 07/04/19 09:00 08/03/19 08:59 07/07/19 08:13 Atorvastatin Calcium (Lipitor) 10 mg BEDTIME ORAL 07/04/19 21:00 08/03/19 20:59 07/06/19 20:50 Dextrose (Dextrose 50%) 25 ml Q30M PRN IV Hypoglycemia 07/03/19 21:45 08/02/19 21:44 Dextrose (Dextrose 50%) 50 ml Q30M PRN IV Hypoglycemia 07/03/19 21:45 08/02/19 21:44 Diltiazem HCl (Cardizem) 10 mg Q1H PRN IV heart rate more than 120, 07/03/19 21:45 08/02/19 21:44 Enalaprilat (Vasotec) 2.5 mg Q6H PRN IV sbp more than 160 07/03/19 21:45 08/02/19 21:44 Finasteride (Proscar) 5 mg DAILY ORAL 07/04/19 09:00 08/03/19 08:59 07/07/19 08:12 Insulin Aspart (NovoLOG) BEFORE MEALS AND HS SUBQ 07/04/19 06:30 08/03/19 06:29 07/06/19 17:02 Morphine Sulfate (Morphine Sulfate) 2 mg Q4H PRN IVP severe Pain (Pain Scale 7-10) 07/03/19 21:45 07/10/19 21:44 07/07/19 08:13 Nitroglycerin (Ntg) 0.4 mg Q5M PRN SL Prn Chest Pain 07/03/19 21:45 08/02/19 21:44 Ondansetron HCl (Zofran) 4 mg Q6H PRN IVP Nausea & Vomiting 07/03/19 21:45 08/02/19 21:44 Pantoprazole (Protonix) 40 mg DAILY ORAL 07/04/19 09:00 08/03/19 08:59 07/07/19 08:13 Polyethylene Glycol (Miralax) 17 gm DAILYPRN PRN ORAL Constipation 07/03/19 21:45 08/02/19 21:44 Tamsulosin HCl (Flomax) 0.4 mg BEDTIME ORAL 07/04/19 21:00 08/03/19 20:59 07/06/19 20:50 Temazepam (Restoril) 15 mg HSPRN PRN ORAL Insomnia 07/03/19 21:45 07/10/19 21:44 Violet Schmid MD Jul 07, 2019 12:11
--- NOTE | 2019-07-07 14:12 | Internal Med Progress Note ---
Subjective Date of Service: Jul 07, 2019 Physician Name AmaCharbel Attending Physician Rik Montes MD Current Medications Medications (Trade) Dose Ordered Sig/Kristan Route PRN Reason Start Time Stop Time Status Last Admin Dose Admin Acetaminophen (Tylenol) 650 mg Q4H PRN ORAL FEVER 07/03/19 21:45 08/02/19 21:44 Albuterol/ Ipratropium (Albuterol/ Ipratropium) 3 ml Q4H PRN HHN Shortness of Breath 07/03/19 21:45 07/08/19 21:44 Apixaban (Eliquis) 5 mg BID ORAL 07/04/19 09:00 08/03/19 08:59 07/07/19 08:13 Aspirin (ASA) 162 mg DAILY ORAL 07/04/19 09:00 08/03/19 08:59 07/07/19 08:13 Atorvastatin Calcium (Lipitor) 10 mg BEDTIME ORAL 07/04/19 21:00 08/03/19 20:59 07/06/19 20:50 Dextrose (Dextrose 50%) 25 ml Q30M PRN IV Hypoglycemia 07/03/19 21:45 08/02/19 21:44 Dextrose (Dextrose 50%) 50 ml Q30M PRN IV Hypoglycemia 07/03/19 21:45 08/02/19 21:44 Diltiazem HCl (Cardizem) 10 mg Q1H PRN IV heart rate more than 120, 07/03/19 21:45 08/02/19 21:44 Enalaprilat (Vasotec) 2.5 mg Q6H PRN IV sbp more than 160 07/03/19 21:45 08/02/19 21:44 Finasteride (Proscar) 5 mg DAILY ORAL 07/04/19 09:00 08/03/19 08:59 07/07/19 08:12 Insulin Aspart (NovoLOG) BEFORE MEALS AND HS SUBQ 07/04/19 06:30 08/03/19 06:29 07/06/19 17:02 Morphine Sulfate (Morphine Sulfate) 2 mg Q4H PRN IVP severe Pain (Pain Scale 7-10) 07/03/19 21:45 07/10/19 21:44 07/07/19 13:17 Nitroglycerin (Ntg) 0.4 mg Q5M PRN SL Prn Chest Pain 07/03/19 21:45 08/02/19 21:44 Ondansetron HCl (Zofran) 4 mg Q6H PRN IVP Nausea & Vomiting 07/03/19 21:45 08/02/19 21:44 Pantoprazole (Protonix) 40 mg DAILY ORAL 07/04/19 09:00 08/03/19 08:59 07/07/19 08:13 Polyethylene Glycol (Miralax) 17 gm DAILYPRN PRN ORAL Constipation 07/03/19 21:45 08/02/19 21:44 Tamsulosin HCl (Flomax) 0.4 mg BEDTIME ORAL 07/04/19 21:00 08/03/19 20:59 07/06/19 20:50 Temazepam (Restoril) 15 mg HSPRN PRN ORAL Insomnia 07/03/19 21:45 07/10/19 21:44 Allergies: Coded Allergies: HYDROCODONE (Verified Adverse Reaction, Intermediate, N/V, 10/08/15) Uncoded Allergies: CONTRAST DYE (Allergy, Unknown, 03/15/19) ROS Limited/Unobtainable: No Constitutional: Reports: no symptoms HEENT: Reports: no symptoms Respiratory: Reports: no symptoms Gastrointestinal/Abdominal: Reports: no symptoms Genitourinary: Reports: no symptoms Neurologic/Psychiatric: Reports: no symptoms Subjective 64 YO M admitted with chest pain. Now supraventricular tachycardia. Cover for Int Tanesha Montes Objective Last Vital Signs Date Time Temp Pulse Resp B/P (MAP) Pulse Ox O2 Delivery O2 Flow Rate FiO2 07/07/19 13:47 98.6 07/07/19 12:00 64 18 103/61 (75) 97 07/07/19 09:00 Room Air 07/06/19 18:30 21 Laboratory Tests Test 07/07/19 06:39 White Blood Count 8.7 K/UL (4.8-10.8) Red Blood Count 5.16 M/UL (4.70-6.10) Hemoglobin 14.2 G/DL (14.2-18.0) Hematocrit 43.5 % (42.0-52.0) Mean Corpuscular Volume 84 FL (80-99) Mean Corpuscular Hemoglobin 27.5 PG (27.0-31.0) Mean Corpuscular Hemoglobin Concent 32.6 G/DL (32.0-36.0) Red Cell Distribution Width 15.1 % (11.6-14.8) H Platelet Count 213 K/UL (150-450) Mean Platelet Volume 9.7 FL (6.5-10.1) Neutrophils (%) (Auto) 66.8 % (45.0-75.0) Lymphocytes (%) (Auto) 19.4 % (20.0-45.0) L Monocytes (%) (Auto) 10.4 % (1.0-10.0) H Eosinophils (%) (Auto) 2.3 % (0.0-3.0) Basophils (%) (Auto) 1.1 % (0.0-2.0) Sodium Level 141 MMOL/L (136-145) Potassium Level 3.7 MMOL/L (3.5-5.1) Chloride Level 105 MMOL/L (98-107) Carbon Dioxide Level 23 MMOL/L (21-32) Anion Gap 13 mmol/L (5-15) Blood Urea Nitrogen 18 mg/dL (7-18) Creatinine 1.3 MG/DL (0.55-1.30) Estimat Glomerular Filtration Rate > 60 mL/min (>60) Glucose Level 128 MG/DL (74-106) H Calcium Level 8.9 MG/DL (8.5-10.1) Intake and Output 07/06/19 07/07/19 19:00 07:00 Intake Total 930 ml 382 ml Output Total 300 ml 500 ml Balance 630 ml -118 ml Intake Oral 930 ml 382 ml Output Urine Total 300 ml 500 ml # Voids 2 Objective PHYSICAL EXAMINATION: GENERAL: The patient is awake and responsive, in no acute distress. HEAD AND NECK: Pupils are equal and reactive to light. Anicteric. Neck was supple. No JVD. LUNGS: Clear. No wheezing or rales. HEART: S1 and S2. Distant heart sounds. No murmur or gallops. ICD in the left-sided chest wall was noted. ABDOMEN: Soft, nondistended, and nontender. Positive bowel sounds. EXTREMITIES: No cyanosis, clubbing, or edema NEUROLOGIC: Cranial nerves II through XII grossly intact. Motor is 5/5 in all extremities. Gait is intact. RECTAL: Refused and deferred. GENITOURINARY: Refused and deferred. PSYCHIATRIC: Mood and affect are intact. Assessment/Plan Assessment/Plan ASSESSMENT: 1. Supraventricular tachycardia. 2. Pacemaker malfunctioning. 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 5. Hypertension. 6. Lumbar spondylosis. 7. Diabetes type 2. 8. BPH. PLAN: 1. Admit the patient to telemetry. 2. Cardiology=Drs. Askew and Avril-no further cardiac workup indicated 3. The patient's code status is Full Code. 4. DVT prophylaxis is Eliquis-H/O DVT and PE. 5. Discharge planning Charbel Serrato MD Jul 07, 2019 14:12
[2019-07-07 16:00] VITALS: BP 129/75
--- NOTE | 2019-07-07 19:39 | NUR ---
HAND-OFF: Report given to ILEANA NAIR. Pt is awake and stable.
--- NOTE | 2019-07-07 19:40 | NUR ---
NURSE NOTES: Received report from Stan RN at [facility]. Pt is aox3 calm and comfortable. Denies any pain or discomfort. Bed is on the lowest position, rails are up x3, call light is within reach. Will continue to follow the plan of care.
[2019-07-07 20:00] VITALS: BP 107/65
[2019-07-07] MEDS: Tamsulosin 0.4mg cap ORAL SCH (21:33)
[2019-07-08 04:00] VITALS: BP 117/76
[2019-07-08] MEDS ORDERED: Ketorolac 30mg Inj IV ONE (05:00)
[2019-07-08] MEDS: Morphine Sulfate 2mg/ml Inj(IV/IM USE ONLY) IVP PRN ×4 (06:10→20:23)
[2019-07-08] MEDS: NovoLOG Insulin Flexpen SUBQ SCH ×4 (06:14→21:00)
[2019-07-08 06:52] LABS: BASOPHILS % (AUTO) 0.8 % (0.0-2.0); EOSINOPHILS % (AUTO) 2.5 % (0.0-3.0); HEMOGLOBIN 12.8 G/DL (14.2-18.0); LYMPHOCYTES % (AUTO) 19.2 % (20.0-45.0); MEAN CORPUSCULAR VOLUME 84 FL (80-99); MONOCYTES % (AUTO) 8.9 % (1.0-10.0); NEUTROPHILS % (AUTO) 68.6 % (45.0-75.0); PLATELET COUNT 178 K/UL (150-450); RED BLOOD COUNT 4.62 M/UL (4.70-6.10); RED CELL DISTRIBUTION WIDTH 15.3 % (11.6-14.8); WHITE BLOOD COUNT 6.9 K/UL (4.8-10.8)
[2019-07-08 07:04] LABS: ANION GAP 10 mmol/L (5-15); BLOOD UREA NITROGEN 13 mg/dL (7-18); CALCIUM 8.4 MG/DL (8.5-10.1); CARBON DIOXIDE 24 MMOL/L (21-32); CHLORIDE 108 MMOL/L (98-107); SODIUM 142 MMOL/L (136-145)
--- NOTE | 2019-07-08 07:30 | NUR ---
NURSE NOTES: Received report from KOREY Chau. Pt in bed, awake, talkative, no c/o pain, no apparent distress noted, discussed plan of care, bed in lowest position, call light within reach
--- NOTE | 2019-07-08 07:35 | NUR ---
HAND-OFF: Report given to Nae NAIR.
[2019-07-08 07:59] VITALS: BP 112/69
[2019-07-08] MEDS: Eliquis 5mg tablet ORAL SCH ×2 (09:08→17:14)
[2019-07-08] MEDS: Aspirin Baby 81mg ORAL SCH (09:08)
[2019-07-08 11:20] VITALS: BP 118/54
--- NOTE | 2019-07-08 11:32 | Pulmonology Progress Note ---
Assessment/Plan Problems: (1) Pacemaker malfunction (2) Palpitation (3) Ventricular mural thrombus (4) Chronic anticoagulation (5) HTN (hypertension) (6) Hx pulmonary embolism (7) Lumbar spondylosis (8) Diabetes mellitus Assessment/Plan no new complains telemetry monitoring cardiology input appreciated rate control symptomatic treatment continue current treatment pt will get discharged after being seen by advertising campaign manager today Subjective ROS Limited/Unobtainable: No Constitutional: Reports: no symptoms HEENT: Repors: no symptoms Respiratory: Reports: no symptoms Allergies: Coded Allergies: HYDROCODONE (Verified Adverse Reaction, Intermediate, N/V, 10/08/15) Uncoded Allergies: CONTRAST DYE (Allergy, Unknown, 03/15/19) Objective Last 24 Hour Vital Signs Date Time Temp Pulse Resp B/P (MAP) Pulse Ox O2 Delivery O2 Flow Rate FiO2 07/08/19 11:22 97.0 07/08/19 11:20 97.0 67 20 118/54 (75) 95 60 07/08/19 09:20 68 20 97 Room Air 21 07/08/19 08:00 Room Air 07/08/19 07:59 96.8 67 20 112/69 (83) 97 07/08/19 07:43 70 07/08/19 04:00 67 07/08/19 04:00 97.5 60 16 117/76 (90) 98 07/08/19 00:00 67 07/07/19 21:00 Room Air 07/07/19 20:00 97.7 82 18 107/65 (79) 99 07/07/19 20:00 62 07/07/19 18:02 96.6 07/07/19 16:00 96.6 61 18 129/75 (93) 97 07/07/19 15:16 62 07/07/19 12:00 98.6 64 18 103/61 (75) 97 07/07/19 11:57 60 Intake and Output 07/07/19 07/08/19 18:59 06:59 Intake Total 280 ml 1000 ml Output Total 1400 ml 800 ml Balance -1120 ml 200 ml Intake Oral 280 ml 1000 ml Output Urine Total 1400 ml 800 ml General Appearance: WD/WN HEENT: normocephalic, atraumatic Respiratory/Chest: chest wall non-tender, lungs clear Cardiovascular: normal peripheral pulses, normal rate Abdomen: normal bowel sounds, soft, non tender Genitourinary: normal external genitalia Extremities: no cyanosis Skin: no rash 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/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 normal Lymphatic: no neck adenopathy Musculoskeletal: normal muscle bulk Laboratory Tests 07/08/19 06:01: White Blood Count 6.9, Red Blood Count 4.62L, Hemoglobin 12.8L, Hematocrit 39.0L , Mean Corpuscular Volume 84, Mean Corpuscular Hemoglobin 27.7, Mean Corpuscular Hemoglobin Concent 32.8, Red Cell Distribution Width 15.3H, Platelet Count 178, Mean Platelet Volume 8.7, Neutrophils (%) (Auto) 68.6, Lymphocytes (%) (Auto) 19.2L, Monocytes (%) (Auto) 8.9, Eosinophils (%) (Auto) 2.5, Basophils (%) (Auto) 0.8, Sodium Level 142, Potassium Level 4.0, Chloride Level 108H, Carbon Dioxide Level 24, Anion Gap 10, Blood Urea Nitrogen 13, Creatinine 1.0, Estimat Glomerular Filtration Rate > 60, Glucose Level 134H, Calcium Level 8.4L Current Medications Medications (Trade) Dose Ordered Sig/Kristan Route PRN Reason Start Time Stop Time Status Last Admin Dose Admin Acetaminophen (Tylenol) 650 mg Q4H PRN ORAL FEVER and pain 07/07/19 17:37 08/06/19 17:36 Albuterol/ Ipratropium (Albuterol/ Ipratropium) 3 ml Q4H PRN HHN Shortness of Breath 07/03/19 21:45 07/08/19 21:44 Apixaban (Eliquis) 5 mg BID ORAL 07/04/19 09:00 08/03/19 08:59 07/08/19 09:08 Aspirin (ASA) 162 mg DAILY ORAL 07/04/19 09:00 08/03/19 08:59 07/08/19 09:08 Atorvastatin Calcium (Lipitor) 10 mg BEDTIME ORAL 07/04/19 21:00 08/03/19 20:59 07/07/19 21:33 Dextrose (Dextrose 50%) 25 ml Q30M PRN IV Hypoglycemia 07/03/19 21:45 08/02/19 21:44 Dextrose (Dextrose 50%) 50 ml Q30M PRN IV Hypoglycemia 07/03/19 21:45 08/02/19 21:44 Diltiazem HCl (Cardizem) 10 mg Q1H PRN IV heart rate more than 120, 07/03/19 21:45 08/02/19 21:44 Enalaprilat (Vasotec) 2.5 mg Q6H PRN IV sbp more than 160 07/03/19 21:45 08/02/19 21:44 Finasteride (Proscar) 5 mg DAILY ORAL 07/04/19 09:00 08/03/19 08:59 07/08/19 09:08 Insulin Aspart (NovoLOG) BEFORE MEALS AND HS SUBQ 07/04/19 06:30 08/03/19 06:29 07/08/19 11:24 Morphine Sulfate (Morphine Sulfate) 2 mg Q4H PRN IVP severe Pain (Pain Scale 7-10) 07/03/19 21:45 07/10/19 21:44 07/08/19 10:52 Nitroglycerin (Ntg) 0.4 mg Q5M PRN SL Prn Chest Pain 07/03/19 21:45 08/02/19 21:44 Ondansetron HCl (Zofran) 4 mg Q6H PRN IVP Nausea & Vomiting 07/03/19 21:45 08/02/19 21:44 Pantoprazole (Protonix) 40 mg DAILY ORAL 07/04/19 09:00 08/03/19 08:59 07/08/19 09:08 Polyethylene Glycol (Miralax) 17 gm DAILYPRN PRN ORAL Constipation 07/03/19 21:45 08/02/19 21:44 Tamsulosin HCl (Flomax) 0.4 mg BEDTIME ORAL 07/04/19 21:00 08/03/19 20:59 07/07/19 21:33 Temazepam (Restoril) 15 mg HSPRN PRN ORAL Insomnia 07/03/19 21:45 07/10/19 21:44 Violet Schmid MD Jul 08, 2019 11:32
--- NOTE | 2019-07-08 14:41 | Cardiology Progress Note ---
Assessment/Plan Assessment/Plan DVT./ PE, on chronic anticoagulation, cm, s/p ICD, chronic chest pain, likely of noncardiac origin. doign well all trop neg extensive prior jimenez no cad on cath ast st dia agree with dc home today Subjective Cardiovascular: Denies: chest pain, lightheadedness Respiratory: Denies: shortness of breath Gastrointestinal/Abdominal: Denies: abdominal pain Genitourinary: Denies: burning Objective Last 24 Hour Vital Signs Date Time Temp Pulse Resp B/P (MAP) Pulse Ox O2 Delivery O2 Flow Rate FiO2 07/08/19 12:14 60 07/08/19 11:22 97.0 07/08/19 11:20 97.0 67 20 118/54 (75) 95 60 07/08/19 09:20 68 20 97 Room Air 21 07/08/19 08:00 Room Air 07/08/19 07:59 96.8 67 112/69 (83) 97 07/08/19 07:43 70 07/08/19 04:00 67 07/08/19 04:00 97.5 60 16 117/76 (90) 98 07/08/19 00:00 67 07/07/19 21:00 Room Air 07/07/19 20:00 97.7 82 18 107/65 (79) 99 07/07/19 20:00 62 07/07/19 18:02 96.6 07/07/19 16:00 96.6 61 18 129/75 (93) 97 07/07/19 15:16 62 General Appearance: no apparent distress, alert Neck: supple, no JVD Cardiovascular: normal rate, systolic murmur Respiratory/Chest: lungs clear Abdomen: normal bowel sounds, non tender, soft Extremities: no swelling Intake and Output 07/07/19 07/08/19 19:00 07:00 Intake Total 140 ml 1000 ml Output Total 1400 ml 800 ml Balance -1260 ml 200 ml Intake Oral 140 ml 1000 ml Output Urine Total 1400 ml 800 ml Laboratory Tests Test 07/08/19 06:01 White Blood Count 6.9 K/UL (4.8-10.8) Red Blood Count 4.62 M/UL (4.70-6.10) L Hemoglobin 12.8 G/DL (14.2-18.0) L Hematocrit 39.0 % (42.0-52.0) L Mean Corpuscular Volume 84 FL (80-99) Mean Corpuscular Hemoglobin 27.7 PG (27.0-31.0) Mean Corpuscular Hemoglobin Concent 32.8 G/DL (32.0-36.0) Red Cell Distribution Width 15.3 % (11.6-14.8) H Platelet Count 178 K/UL (150-450) Mean Platelet Volume 8.7 FL (6.5-10.1) Neutrophils (%) (Auto) 68.6 % (45.0-75.0) Lymphocytes (%) (Auto) 19.2 % (20.0-45.0) L Monocytes (%) (Auto) 8.9 % (1.0-10.0) Eosinophils (%) (Auto) 2.5 % (0.0-3.0) Basophils (%) (Auto) 0.8 % (0.0-2.0) Sodium Level 142 MMOL/L (136-145) Potassium Level 4.0 MMOL/L (3.5-5.1) Chloride Level 108 MMOL/L (98-107) H Carbon Dioxide Level 24 MMOL/L (21-32) Anion Gap 10 mmol/L (5-15) Blood Urea Nitrogen 13 mg/dL (7-18) Creatinine 1.0 MG/DL (0.55-1.30) Estimat Glomerular Filtration Rate > 60 mL/min (>60) Glucose Level 134 MG/DL (74-106) H Calcium Level 8.4 MG/DL (8.5-10.1) Marco Cruz MD Jul 08, 2019 14:41
--- NOTE | 2019-07-08 15:00 | NUR ---
NURSE NOTES: Spoke to patient about DC order and clearance from cardiology. PT stated "Now we have to speak with Dr. Schmid" Dr. Serrato on floor, RN notified Dr. Serrato of DC order and clearance from cardiology. MD will see pt Addendum: 07/08/19 at 1549 by KAITLYNN WASHBURN RN NURSE NOTES: Pt stating he has an arrangement with for transportation at discharge. RN discussed with NADJA Samuel (on floor). NADJA Samuel and myself discussed with pt directly the discharge plan for home health and that pt has DC order and can go home today. Pt provided Lizzie with information as he appealed his discharge. NADJA Samuel notified [facility] [place]. RN notified Dr. Serrato that pt applied DC
--- NOTE | 2019-07-08 15:32 | Internal Med Progress Note ---
Subjective Date of Service: Jul 08, 2019 Physician Name Charbel Serrato Attending Physician Rik Montes MD Current Medications Medications (Trade) Dose Ordered Sig/Kristan Route PRN Reason Start Time Stop Time Status Last Admin Dose Admin Acetaminophen (Tylenol) 650 mg Q4H PRN ORAL FEVER and pain 07/07/19 17:37 08/06/19 17:36 Albuterol/ Ipratropium (Albuterol/ Ipratropium) 3 ml Q4H PRN HHN Shortness of Breath 07/03/19 21:45 07/08/19 21:44 Apixaban (Eliquis) 5 mg BID ORAL 07/04/19 09:00 08/03/19 08:59 07/08/19 09:08 Aspirin (ASA) 162 mg DAILY ORAL 07/04/19 09:00 08/03/19 08:59 07/08/19 09:08 Atorvastatin Calcium (Lipitor) 10 mg BEDTIME ORAL 07/04/19 21:00 08/03/19 20:59 07/07/19 21:33 Dextrose (Dextrose 50%) 25 ml Q30M PRN IV Hypoglycemia 07/03/19 21:45 08/02/19 21:44 Dextrose (Dextrose 50%) 50 ml Q30M PRN IV Hypoglycemia 07/03/19 21:45 08/02/19 21:44 Diltiazem HCl (Cardizem) 10 mg Q1H PRN IV heart rate more than 120, 07/03/19 21:45 08/02/19 21:44 Enalaprilat (Vasotec) 2.5 mg Q6H PRN IV sbp more than 160 07/03/19 21:45 08/02/19 21:44 Finasteride (Proscar) 5 mg DAILY ORAL 07/04/19 09:00 08/03/19 08:59 07/08/19 09:08 Insulin Aspart (NovoLOG) BEFORE MEALS AND HS SUBQ 07/04/19 06:30 08/03/19 06:29 07/08/19 11:24 Morphine Sulfate (Morphine Sulfate) 2 mg Q4H PRN IVP severe Pain (Pain Scale 7-10) 07/03/19 21:45 07/10/19 21:44 07/08/19 15:09 Nitroglycerin (Ntg) 0.4 mg Q5M PRN SL Prn Chest Pain 07/03/19 21:45 08/02/19 21:44 Ondansetron HCl (Zofran) 4 mg Q6H PRN IVP Nausea & Vomiting 07/03/19 21:45 08/02/19 21:44 Pantoprazole (Protonix) 40 mg DAILY ORAL 07/04/19 09:00 08/03/19 08:59 07/08/19 09:08 Polyethylene Glycol (Miralax) 17 gm DAILYPRN PRN ORAL Constipation 07/03/19 21:45 08/02/19 21:44 Tamsulosin HCl (Flomax) 0.4 mg BEDTIME ORAL 07/04/19 21:00 08/03/19 20:59 07/07/19 21:33 Temazepam (Restoril) 15 mg HSPRN PRN ORAL Insomnia 07/03/19 21:45 07/10/19 21:44 Allergies: Coded Allergies: HYDROCODONE (Verified Adverse Reaction, Intermediate, N/V, 10/08/15) Uncoded Allergies: CONTRAST DYE (Allergy, Unknown, 03/15/19) ROS Limited/Unobtainable: No Constitutional: Reports: no symptoms HEENT: Reports: no symptoms Cardiovascular: Reports: no symptoms Respiratory: Reports: no symptoms Gastrointestinal/Abdominal: Reports: no symptoms Genitourinary: Reports: no symptoms Subjective 64 YO M admitted with chest pain. Now supraventricular tachycardia. Cover for Int Tanesha Montes Objective Last Vital Signs Date Time Temp Pulse Resp B/P (MAP) Pulse Ox O2 Delivery O2 Flow Rate FiO2 07/08/19 12:14 60 07/08/19 11:22 97.0 07/08/19 11:20 20 118/54 (75) 95 07/08/19 09:20 Room Air 21 Laboratory Tests Test 07/08/19 06:01 White Blood Count 6.9 K/UL (4.8-10.8) Red Blood Count 4.62 M/UL (4.70-6.10) L Hemoglobin 12.8 G/DL (14.2-18.0) L Hematocrit 39.0 % (42.0-52.0) L Mean Corpuscular Volume 84 FL (80-99) Mean Corpuscular Hemoglobin 27.7 PG (27.0-31.0) Mean Corpuscular Hemoglobin Concent 32.8 G/DL (32.0-36.0) Red Cell Distribution Width 15.3 % (11.6-14.8) H Platelet Count 178 K/UL (150-450) Mean Platelet Volume 8.7 FL (6.5-10.1) Neutrophils (%) (Auto) 68.6 % (45.0-75.0) Lymphocytes (%) (Auto) 19.2 % (20.0-45.0) L Monocytes (%) (Auto) 8.9 % (1.0-10.0) Eosinophils (%) (Auto) 2.5 % (0.0-3.0) Basophils (%) (Auto) 0.8 % (0.0-2.0) Sodium Level 142 MMOL/L (136-145) Potassium Level 4.0 MMOL/L (3.5-5.1) Chloride Level 108 MMOL/L (98-107) H Carbon Dioxide Level 24 MMOL/L (21-32) Anion Gap 10 mmol/L (5-15) Blood Urea Nitrogen 13 mg/dL (7-18) Creatinine 1.0 MG/DL (0.55-1.30) Estimat Glomerular Filtration Rate > 60 mL/min (>60) Glucose Level 134 MG/DL (74-106) H Calcium Level 8.4 MG/DL (8.5-10.1) L Intake and Output 07/07/19 07/08/19 19:00 07:00 Intake Total 140 ml 1000 ml Output Total 1400 ml 800 ml Balance -1260 ml 200 ml Intake Oral 140 ml 1000 ml Output Urine Total 1400 ml 800 ml Objective PHYSICAL EXAMINATION: GENERAL: The patient is awake and responsive, in no acute distress. HEAD AND NECK: Pupils are equal and reactive to light. Anicteric. Neck was supple. No JVD. LUNGS: Clear. No wheezing or rales. HEART: S1 and S2. Distant heart sounds. No murmur or gallops. ICD in the left-sided chest wall was noted. ABDOMEN: Soft, nondistended, and nontender. Positive bowel sounds. EXTREMITIES: No cyanosis, clubbing, or edema NEUROLOGIC: Cranial nerves II through XII grossly intact. Motor is 5/5 in all extremities. Gait is intact. RECTAL: Refused and deferred. GENITOURINARY: Refused and deferred. PSYCHIATRIC: Mood and affect are intact. Assessment/Plan Assessment/Plan ASSESSMENT: 1. Supraventricular tachycardia. 2. Pacemaker malfunctioning. 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 5. Hypertension. 6. Lumbar spondylosis. 7. Diabetes type 2. 8. BPH. PLAN: 1. Admit the patient to telemetry. 2. Cardiology=Drs. Askew and Avril-no further cardiac workup indicated 3. The patient's code status is Full Code. 4. DVT prophylaxis is Eliquis-H/O DVT and PE. 5. Discharge home today Charbel Serrato MD Jul 08, 2019 15:32
--- NOTE | 2019-07-08 15:57 | NUR ---
DISCHARGED APPEALED PATIENT HAS APPEALED HIS DISCHARGE WILL WAIT FOR [facility]
[2019-07-08 16:00] VITALS: BP 117/69
--- NOTE | 2019-07-08 16:09 | NUR ---
*-* INSURANCE *-* ALL CLINICALS AND REVIEWS HAVE BEEN FAXED TO: [facility] REF# [id number] F: [phone] P: [phone]
--- NOTE | 2019-07-08 16:30 | NUR ---
*-* CASE MANAGEMENT NOTES *-* RECEIVED A CALL FROM [facility]: SPOKE WITH JEZ WITH [facility] REQUESTING IMM FAXED TO HER.. IMM WAS FAXED TO: NIRU ATTN:JEZ P: [phone] F: [phone] [id number]
--- NOTE | 2019-07-08 19:36 | NUR ---
HAND-OFF: Report given to KOREY Ashton.
--- NOTE | 2019-07-08 19:37 | NUR ---
NURSE NOTES: Got report from Nae NAIR. Pt in stable condition. Denies any pain. No s/s of distress or discomfort noted. Pt resting in bed comfortably. Bed in low and locked position, call light within reach, bedside table within reach. Continue to monitor.
[2019-07-08 20:00] VITALS: BP 115/74
--- NOTE | 2019-07-08 20:10 | NUR ---
NURSE NOTES: Pt received from KOREY Ashton alert and oriented x4 with no acute s/s of distress noted. IV site asymptomatic and patent. Bed in lowest position, call light and belongings within reach.
[2019-07-08] MEDS: Tamsulosin 0.4mg cap ORAL SCH (20:22)
[2019-07-09] VITALS: BP 100/57
[2019-07-09] MEDS: Morphine Sulfate 2mg/ml Inj(IV/IM USE ONLY) IVP PRN ×3 (00:42→22:42)
[2019-07-09 04:00] VITALS: BP 109/61
[2019-07-09] MEDS: NovoLOG Insulin Flexpen SUBQ SCH ×4 (06:30→21:36)
--- NOTE | 2019-07-09 07:21 | NUR ---
HAND-OFF: Report given to KOREY Soni. Plan of care endorsed.
--- NOTE | 2019-07-09 07:35 | NUR ---
NURSE NOTES: Received report from KOREY Cordon. Pt in bed, awake, talkative, no apparent distress noted, discharge order in system, pt is appealing discharge, all MD's aware and CM is aware, bed in lowest position, call light within reach.
[2019-07-09 08:00] VITALS: BP 117/71
[2019-07-09] MEDS: Eliquis 5mg tablet ORAL SCH ×2 (09:07→18:30)
[2019-07-09] MEDS: Aspirin Baby 81mg ORAL SCH (09:07)
--- NOTE | 2019-07-09 09:07 | NUR ---
NURSE NOTES: Administered pt's medications. Pt asking "did you speak with the Charge Nurse." Notified pt I was aware of his request for a different RN and greenhouse technician is in huddle and will work on changing assignment.
--- NOTE | 2019-07-09 11:20 | NUR ---
NURSE NOTES: Entered pt's room to check blood sugar, pt stated "no you can't do it anymore, they are getting someone else." RN notified Charge Nurse pt refused.
[2019-07-09 12:00] VITALS: BP 106/51
--- NOTE | 2019-07-09 12:42 | Pulmonology Progress Note ---
Assessment/Plan Problems: (1) Pacemaker malfunction (2) Palpitation (3) Ventricular mural thrombus (4) Chronic anticoagulation (5) HTN (hypertension) (6) Hx pulmonary embolism (7) Lumbar spondylosis (8) Diabetes mellitus Assessment/Plan no new complains telemetry monitoring cardiology input appreciated rate control symptomatic treatment continue current treatment pt wants his medication to be changed to prevent future tachycardic episodes. Subjective ROS Limited/Unobtainable: No Constitutional: Reports: no symptoms HEENT: Repors: no symptoms Allergies: Coded Allergies: HYDROCODONE (Verified Adverse Reaction, Intermediate, N/V, 10/08/15) Uncoded Allergies: CONTRAST DYE (Allergy, Unknown, 03/15/19) Objective Last 24 Hour Vital Signs Date Time Temp Pulse Resp B/P (MAP) Pulse Ox O2 Delivery O2 Flow Rate FiO2 07/09/19 12:00 97.5 64 20 106/51 (69) 98 07/09/19 08:04 60 07/09/19 08:03 Room Air 07/09/19 08:00 98.1 65 19 117/71 (86) 99 07/09/19 04:00 62 07/09/19 04:00 96.9 65 18 109/61 (77) 97 65 07/09/19 00:00 97.2 60 19 100/57 (71) 96 60 07/08/19 21:00 Room Air 07/08/19 20:47 65 16 95 Room Air 21 07/08/19 20:00 61 07/08/19 20:00 97.0 67 19 115/74 (88) 97 67 07/08/19 16:00 96.6 62 20 117/69 (85) 99 62 07/08/19 15:39 97.0 07/08/19 15:35 61 Intake and Output 07/08/19 07/09/19 19:00 07:00 Intake Total 840 ml Balance 840 ml Intake Oral 840 ml # Voids 2 2 General Appearance: WD/WN HEENT: normocephalic, atraumatic Respiratory/Chest: chest wall non-tender, lungs clear Cardiovascular: normal peripheral pulses, normal rate Abdomen: normal bowel sounds, soft, non tender Genitourinary: normal external genitalia Neurologic/Psychiatric: open soaper tender II-XII grossly normal Lymphatic: no neck adenopathy Current Medications Medications (Trade) Dose Ordered Sig/Kristan Route PRN Reason Start Time Stop Time Status Last Admin Dose Admin Acetaminophen (Tylenol) 650 mg Q4H PRN ORAL FEVER and pain 07/07/19 17:37 08/06/19 17:36 Apixaban (Eliquis) 5 mg BID ORAL 07/04/19 09:00 08/03/19 08:59 07/09/19 09:07 Aspirin (ASA) 162 mg DAILY ORAL 07/04/19 09:00 08/03/19 08:59 07/09/19 09:07 Atorvastatin Calcium (Lipitor) 10 mg BEDTIME ORAL 07/04/19 21:00 08/03/19 20:59 07/08/19 20:22 Dextrose (Dextrose 50%) 25 ml Q30M PRN IV Hypoglycemia 07/03/19 21:45 08/02/19 21:44 Dextrose (Dextrose 50%) 50 ml Q30M PRN IV Hypoglycemia 07/03/19 21:45 08/02/19 21:44 Diltiazem HCl (Cardizem) 10 mg Q1H PRN IV heart rate more than 120, 07/03/19 21:45 08/02/19 21:44 Enalaprilat (Vasotec) 2.5 mg Q6H PRN IV sbp more than 160 07/03/19 21:45 08/02/19 21:44 Finasteride (Proscar) 5 mg DAILY ORAL 07/04/19 09:00 08/03/19 08:59 07/09/19 09:07 Insulin Aspart (NovoLOG) BEFORE MEALS AND HS SUBQ 07/04/19 06:30 08/03/19 06:29 07/08/19 11:24 Morphine Sulfate (Morphine Sulfate) 2 mg Q4H PRN IVP severe Pain (Pain Scale 7-10) 07/03/19 21:45 07/10/19 21:44 07/09/19 00:42 Nitroglycerin (Ntg) 0.4 mg Q5M PRN SL Prn Chest Pain 07/03/19 21:45 08/02/19 21:44 Ondansetron HCl (Zofran) 4 mg Q6H PRN IVP Nausea & Vomiting 07/03/19 21:45 08/02/19 21:44 Pantoprazole (Protonix) 40 mg DAILY ORAL 07/04/19 09:00 08/03/19 08:59 07/09/19 09:07 Polyethylene Glycol (Miralax) 17 gm DAILYPRN PRN ORAL Constipation 07/03/19 21:45 08/02/19 21:44 Tamsulosin HCl (Flomax) 0.4 mg BEDTIME ORAL 07/04/19 21:00 08/03/19 20:59 07/08/19 20:22 Temazepam (Restoril) 15 mg HSPRN PRN ORAL Insomnia 07/03/19 21:45 07/10/19 21:44 Violet Schmid MD Jul 09, 2019 12:42
--- NOTE | 2019-07-09 15:18 | NUR ---
*-* INSURANCE *-* ALL CLINICALS AND REVIEWS HAVE BEEN FAXED TO: [facility] REF# [id number] F: [phone] P: [phone]
--- NOTE | 2019-07-09 15:53 | NUR ---
DISCHARGE UPDATE PATIENT APPEALED HIS DISCHARGE YESTERDAY [facility] HAS DENIED HIS STAY OF YESTERDAY ~ PAPER WORK WAS PROVIDED TO PATIENT STILL WAITING FOR RESPONSE FROM [facility]
[2019-07-09 16:00] VITALS: BP 111/63
--- NOTE | 2019-07-09 16:18 | Diagnostic Imaging Report ---
Indication: Neck pain radiating to the left side of the body. Technique: Continuous helical imaging of the cervical spine was obtained transaxially from the skull base to the upper thoracic spine. 2-D coronal and sagittal reformatted images were obtained. Automatic Exposure Control was utilized. Total Dose length Product (DLP): 323.[address] Dose Index Volume (CTDIvol): 12 mGy Comparison: None Findings: There is a pacemaker partially seen on this examination. There is loss of cervical lordosis with slight reversal of curvature. This may be due to muscle spasm. C1-2, C2-3, C3-4 appear unremarkable. C4-5: There is moderate narrowing of intervertebral disc. Vertebral endplate osteophytes project anteriorly at this level. The neural foramina appear patent. Facets are unremarkable. C5-6: There is moderate lysis of height of the intervertebral disc with the vertebral endplate osteophytes projecting anteriorly. There is a suggestion of mild foraminal stenosis at this level due to uncovertebral arthropathy. C6-7: Mild to moderate narrowing of intervertebral disc and marginal endplate osteophytes projecting anteriorly noted. Suggestion of mild bilateral neural foraminal stenosis due to uncovertebral arthropathy. C7-T1: Unremarkable. The paravertebral and paraspinous soft tissues appear unremarkable. There is opacification of the right sphenoid sinus. 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 Kyphotic cervical spine angle a be due to muscle spasm. Sphenoid sinusitis The CT scanner at [facility] is accredited by the [employer] and the scans are performed using dose optimization techniques as appropriate to a performed exam including Automatic Exposure control.
--- NOTE | 2019-07-09 17:11 | NUR ---
HAND-OFF: Report given to KOREY Silverio. Pt stable.
--- NOTE | 2019-07-09 17:15 | NUR ---
NURSE NOTES: RECEIVED PT FROM TELEMETRY, KOREY CALDERÓN. PT IN STABLE CONDITION. BELONGINGS CHECKED AT BEDSIDE. PT STATES ALL BELONGINGS ARE ACCOUNTED. PT ORIENTED TO ROOM. BED IN LOWEST POSITION WITH BEDSIDE RAILS X2 RAISED. CALL LIGHT WITHIN REACH. WILL CONTINUE TO MONITOR.
[2019-07-09] MEDS ORDERED: dilTIAZem HCl 25mg/5ml Inj IV PRN (17:45)
[2019-07-09] MEDS ORDERED: Nitroglycerin Subl 0.4mg tab SL PRN (17:52)
[2019-07-09] MEDS ORDERED: Enalaprilat 2.5mg/2ml Inj IV PRN (17:53)
[2019-07-09] MEDS ORDERED: Miralax 17gm pkt ORAL PRN (17:54)
--- NOTE | 2019-07-09 19:00 | NUR ---
NURSE NOTES: PT CALLED RN TO ROOM. WHEN RN ENTERED ROOM, PT SHOWED RN HIS RIGHT HAND WHERE IV ACCESS WAS OUT OF PT. RN ATTEMPTED TO INSERT IV ACCESS X2, UNSUCCESSFUL. WILL ENDORSE TO NEXT RN DUE TO SHIFT CHANGE.
--- NOTE | 2019-07-09 19:24 | Internal Med Progress Note ---
Subjective Date of Service: Jul 09, 2019 Physician Name Charbel Serrato Attending Physician Rik Montes MD Current Medications Medications (Trade) Dose Ordered Sig/Kristan Route PRN Reason Start Time Stop Time Status Last Admin Dose Admin Acetaminophen (Tylenol) 650 mg Q4H PRN ORAL FEVER and pain 07/09/19 17:50 08/06/19 17:49 Apixaban (Eliquis) 5 mg BID ORAL 07/09/19 18:00 08/03/19 08:59 07/09/19 18:30 Aspirin (ASA) 162 mg DAILY ORAL 07/10/19 09:00 08/03/19 08:59 Atorvastatin Calcium (Lipitor) 10 mg BEDTIME ORAL 07/09/19 21:00 08/03/19 20:59 Dextrose (Dextrose 50%) 25 ml Q30M PRN IV Hypoglycemia 07/09/19 17:15 08/02/19 21:44 Dextrose (Dextrose 50%) 50 ml Q30M PRN IV Hypoglycemia 07/09/19 17:15 08/02/19 21:44 Enalaprilat (Vasotec) 2.5 mg Q6H PRN IV sbp more than 160 07/09/19 17:53 08/02/19 17:52 Finasteride (Proscar) 5 mg DAILY ORAL 07/10/19 09:00 08/03/19 08:59 Insulin Aspart (NovoLOG) BEFORE MEALS AND HS SUBQ 07/09/19 21:00 08/03/19 06:29 Morphine Sulfate (Morphine Sulfate) 2 mg Q4H PRN IVP severe Pain (Pain Scale 7-10) 07/09/19 17:54 07/10/19 17:53 Nitroglycerin (Ntg) 0.4 mg Q5M PRN SL Prn Chest Pain 07/09/19 17:52 08/02/19 17:51 Ondansetron HCl (Zofran) 4 mg Q6H PRN IVP Nausea & Vomiting 07/09/19 17:52 08/02/19 17:51 Pantoprazole (Protonix) 40 mg DAILY ORAL 07/10/19 09:00 08/03/19 08:59 Polyethylene Glycol (Miralax) 17 gm DAILYPRN PRN ORAL Constipation 07/09/19 17:54 08/02/19 17:53 Tamsulosin HCl (Flomax) 0.4 mg BEDTIME ORAL 07/09/19 21:00 08/03/19 20:59 Temazepam (Restoril) 15 mg HSPRN PRN ORAL Insomnia 07/09/19 21:45 07/10/19 21:44 Allergies: Coded Allergies: HYDROCODONE (Verified Adverse Reaction, Intermediate, N/V, 10/08/15) Uncoded Allergies: CONTRAST DYE (Allergy, Unknown, 03/15/19) ROS Limited/Unobtainable: No Constitutional: Reports: no symptoms HEENT: Reports: no symptoms Cardiovascular: Reports: no symptoms Respiratory: Reports: no symptoms Gastrointestinal/Abdominal: Reports: no symptoms Genitourinary: Reports: no symptoms Neurologic/Psychiatric: Reports: no symptoms Subjective 64 YO M admitted with chest pain. Now supraventricular tachycardia. Cover for Int Rajesh-Dr Montes Objective Last Vital Signs Date Time Temp Pulse Resp B/P (MAP) Pulse Ox O2 Delivery O2 Flow Rate FiO2 07/09/19 16:46 97.9 07/09/19 16:00 65 19 111/63 (79) 100 07/09/19 08:03 Room Air 07/08/19 20:47 21 Intake and Output 07/08/19 07/09/19 19:00 07:00 Intake Total 840 ml Balance 840 ml Intake Oral 840 ml # Voids 2 2 Objective PHYSICAL EXAMINATION: GENERAL: The patient is awake and responsive, in no acute distress. HEAD AND NECK: Pupils are equal and reactive to light. Anicteric. Neck was supple. No JVD. LUNGS: Clear. No wheezing or rales. HEART: S1 and S2. Distant heart sounds. No murmur or gallops. ICD in the left-sided chest wall was noted. ABDOMEN: Soft, nondistended, and nontender. Positive bowel sounds. EXTREMITIES: No cyanosis, clubbing, or edema NEUROLOGIC: Cranial nerves II through XII grossly intact. Motor is 5/5 in all extremities. Gait is intact. RECTAL: Refused and deferred. GENITOURINARY: Refused and deferred. PSYCHIATRIC: Mood and affect are intact. Assessment/Plan Assessment/Plan ASSESSMENT: 1. Supraventricular tachycardia. 2. Pacemaker malfunctioning. 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 5. Hypertension. 6. Lumbar spondylosis. 7. Diabetes type 2. 8. BPH. PLAN: 1. Admit the patient to telemetry. 2. Cardiology=Drs. Askew and Avril-no further cardiac workup indicated 3. The patient's code status is Full Code. 4. DVT prophylaxis is Eliquis-H/O DVT and PE. 5. Await appeal of Discharge by patient to insurance Charbel Serrato MD Jul 09, 2019 19:24
--- NOTE | 2019-07-09 19:26 | NUR ---
HAND-OFF: Report given to Caterina ORTEGA RN.
--- NOTE | 2019-07-09 19:28 | NUR ---
NURSE NOTES: Patient in bed, awake and alert x4. No signs of distress at this time. No IV access at this time. Insertion unsuccessful per AM nurse. Will re-attempt insertion. Bed locked and in lowest position. Call light in easy reach. Will continue to monitor.
--- NOTE | 2019-07-09 19:40 | NUR ---
NURSE NOTES: Shortly after making rounds, was told by the battery charger that an unknown woman called, stating that the patient would like to switch nurses. When asked why, the woman hung up. Charge informed the patient that the assignment could not be changed at this time. Will continue to follow plan of care.
--- NOTE | 2019-07-09 19:55 | Emergency Room Report ---
History of Present Illness General Chief Complaint: Chest Pain Source: Patient Present Illness HPI This patient has a significant cardiac history. He has a history of a mural thrombus, pacemaker and coronary artery disease. He is on Eliquis for anticoagulation. He presents with palpitations, chest pain, lightheadedness and shortness of breath. He states that he has had issues with his pacemaker. He states that he had been getting readings of his heart rate of over 130. He denies recent illness. He denies cough or congestion. He denies fever or chills. He denies nausea or vomiting. He has no other complaints. Allergies: Uncoded Allergies: CONTRAST DYE (Allergy, Unknown, 03/15/19) Patient History Past Medical History: see triage record, HTN, GA, CAD, CHF, arrhyth, other - DVT, Mural thrombus Past Surgical History: pacemaker Social History: Denies: smoking, alcohol use, drug use Reviewed Nursing Documentation: PMH: Agreed; PSxH: Agreed Nursing Documentation-PMH Hx Cardiac Problems: Yes - Hx Hypertension: Yes Hx Pacemaker: Yes Hx Asthma: No Hx COPD: No Hx Diabetes: Yes Hx Cancer: No Hx Gastrointestinal Problems: No Hx Dialysis: No Hx Neurological Problems: No Hx Cerebrovascular Accident: No Hx Seizures: No Review of Systems All Other Systems: negative except mentioned in HPI Physical Exam Vital Signs Date Time Temp Pulse Resp B/P (MAP) Pulse Ox O2 Delivery O2 Flow Rate FiO2 07/05/19 07:41 70 07/05/19 07:57 96.5 20 115/75 (88) 99 07/05/19 08:21 Room Air 07/05/19 16:16 21 Sp02 EP Interpretation: reviewed, normal General Appearance: no apparent distress, alert, GCS 15, non-toxic Head: normocephalic, atraumatic Eyes: bilateral eye normal inspection, bilateral eye PERRL ENT: hearing grossly normal, normal pharynx, no angioedema, normal voice Neck: full range of motion, supple/symm/no masses Respiratory: chest non-tender, lungs clear, normal breath sounds, no respiratory distress, no retraction, no accessory muscle use, speaking full sentences Cardiovascular #1: regular rate, rhythm, no edema Gastrointestinal: normal bowel sounds, non tender, soft, non-distended, no guarding, no rebound Rectal: deferred Musculoskeletal: back normal, normal range of motion, gait/station normal, non- tender Neurologic: alert, motor strength/tone normal, oriented x3, sensory intact, responsive, speech normal Psychiatric: judgement/insight normal, memory normal, mood/affect normal, no suicidal/homicidal ideation Skin: no rash, normal color Medical Decision Making Diagnostic Impression: Primary Impression: Chest pain Additional Impressions: Palpitation Ventricular mural thrombus ER Course This patient has a significant cardiac history to include a mural thrombus. He reports elevations in his heart rate and palpitations with associated lightheadedness, chest pain and shortness of breath. The tachycardia was not observed here in the emergency department. However, given the patient's history , pacemaker status and chronic illnesses, I felt this patient should be admitted for further observation and monitoring and further evaluation by internal medicine and cardiology. Initial work-up in the emergency department is unremarkable. See EMR EKG Diagnostic Results Rate: normal Rhythm: NSR ST Segments: no acute changes Rhythm Strip Diag. Results EP Interpretation: yes Rate: 60's Rhythm: NSR, no PVC's, no ectopy Chest X-Ray Diagnostic Results Chest X-Ray Diagnostic Results : Chest X-Ray Ordered: Yes # of Views/Limited/Complete: 1 View Indication: Chest Pain EP Interpretation: Yes Interpretation: no consolidation, no effusion, no pneumothorax, no acute cardiopulmonary disease Impression: No acute disease Electronically Signed by: Harika Arroyo DO Last Vital Signs Date Time Temp Pulse Resp B/P (MAP) Pulse Ox O2 Delivery O2 Flow Rate FiO2 07/09/19 16:46 97.9 07/09/19 16:00 65 19 111/63 (79) 100 07/09/19 08:03 Room Air 07/08/19 20:47 21 Disposition: ADMITTED INPATIENT Condition: Stable Scripts Apixaban (ELIQUIS) 5 Mg Tablet 5 MG ORAL BID for 30 Days, TAB Prov: Violet Schmid MD 07/17/19 Referrals: NOT CHOSEN IPA/,REFERRING (PCP) Patient Instructions: Shortness of Breath, [id number], Nonspecific Chest Pain , [id number], Dizziness, [id number] Harika Arroyo DO Jul 09, 2019 19:55
[2019-07-09 20:00] VITALS: BP 120/65
[2019-07-09] MEDS: Tamsulosin 0.4mg cap ORAL SCH (21:29)
--- NOTE | 2019-07-09 22:15 | NUR ---
NURSE NOTES: New IV access - LFA 22g SL. Will continue to follow plan of care as ordered.
[2019-07-10] VITALS: BP 110/71
[2019-07-10] MEDS: Morphine Sulfate 2mg/ml Inj(IV/IM USE ONLY) IVP PRN ×5 (02:52→21:13)
[2019-07-10 04:00] VITALS: BP 128/64
[2019-07-10] MEDS: NovoLOG Insulin Flexpen SUBQ SCH ×4 (05:43→20:40)
--- NOTE | 2019-07-10 07:21 | NUR ---
HAND-OFF: Report given to KOREY Deluca.
--- NOTE | 2019-07-10 07:25 | NUR ---
nurse notes received patient resting comfortably in bed, no sign of distress, HL patent, on fall precaution, c/o pain . will give prn pain med, will continue to monitor matthias lopes
[2019-07-10 07:57] LABS: ANION GAP 8 mmol/L (5-15); BLOOD UREA NITROGEN 17 mg/dL (7-18); CALCIUM 8.7 MG/DL (8.5-10.1); CARBON DIOXIDE 25 MMOL/L (21-32); CHLORIDE 106 MMOL/L (98-107); CREATININE 1.1 MG/DL (0.55-1.30); POTASSIUM 4.1 MMOL/L (3.5-5.1); SODIUM 139 MMOL/L (136-145)
[2019-07-10 07:58] LABS: BASOPHILS % (AUTO) 1.1 % (0.0-2.0); EOSINOPHILS % (AUTO) 3.3 % (0.0-3.0); HEMATOCRIT 39.1 % (42.0-52.0); HEMOGLOBIN 12.9 G/DL (14.2-18.0); LYMPHOCYTES % (AUTO) 25.3 % (20.0-45.0); MEAN CORPUSCULAR VOLUME 84 FL (80-99); MONOCYTES % (AUTO) 10.3 % (1.0-10.0); NEUTROPHILS % (AUTO) 60.2 % (45.0-75.0); PLATELET COUNT 175 K/UL (150-450); RED BLOOD COUNT 4.66 M/UL (4.70-6.10); RED CELL DISTRIBUTION WIDTH 15.3 % (11.6-14.8); WHITE BLOOD COUNT 6.2 K/UL (4.8-10.8)
[2019-07-10 08:00] VITALS: BP 116/65
[2019-07-10] MEDS: Aspirin Baby 81mg ORAL SCH (08:11)
[2019-07-10] MEDS: Eliquis 5mg tablet ORAL SCH ×2 (08:11→17:05)
[2019-07-10 12:00] VITALS: BP 114/62
--- NOTE | 2019-07-10 13:21 | Pulmonology Progress Note ---
Assessment/Plan Problems: (1) Pacemaker malfunction (2) Palpitation (3) Ventricular mural thrombus (4) Chronic anticoagulation (5) HTN (hypertension) (6) Hx pulmonary embolism (7) Lumbar spondylosis (8) Diabetes mellitus Assessment/Plan doing better no new complains telemetry monitoring cardiology input appreciated rate control symptomatic treatment continue current treatment Subjective ROS Limited/Unobtainable: No Constitutional: Reports: no symptoms HEENT: Repors: no symptoms Respiratory: Reports: no symptoms Allergies: Coded Allergies: HYDROCODONE (Verified Adverse Reaction, Intermediate, N/V, 10/08/15) Uncoded Allergies: CONTRAST DYE (Allergy, Unknown, 03/15/19) Objective Last 24 Hour Vital Signs Date Time Temp Pulse Resp B/P (MAP) Pulse Ox O2 Delivery O2 Flow Rate FiO2 07/10/19 12:00 97.4 62 20 114/62 (79) 98 07/10/19 09:00 Room Air 07/10/19 08:52 63 16 96 Room Air 21 07/10/19 08:00 97.5 69 20 116/65 (82) 98 07/10/19 04:00 97.0 60 18 128/64 (85) 99 07/10/19 00:00 97.6 65 20 110/71 (84) 100 07/09/19 21:00 Room Air 07/09/19 20:27 69 16 96 Room Air 21 07/09/19 20:00 97.0 65 20 120/65 (83) 97 07/09/19 16:46 97.9 07/09/19 16:00 97.9 65 19 111/63 (79) 100 Intake and Output 07/09/19 07/10/19 19:00 07:00 Intake Total 800 ml 240 ml Output Total 500 ml Balance 800 ml -260 ml Intake Oral 800 ml 240 ml Output Urine Total 500 ml # Voids 3 2 General Appearance: WD/WN HEENT: normocephalic, atraumatic Respiratory/Chest: chest wall non-tender, lungs clear Cardiovascular: normal peripheral pulses, normal rate Abdomen: normal bowel sounds, no organomegaly Extremities: no clubbing Skin: no lesions Laboratory Tests 07/10/19 06:39: White Blood Count 6.2, Red Blood Count 4.66L, Hemoglobin 12.9L, Hematocrit 39.1L , Mean Corpuscular Volume 84, Mean Corpuscular Hemoglobin 27.7, Mean Corpuscular Hemoglobin Concent 33.1, Red Cell Distribution Width 15.3H, Platelet Count 175, Mean Platelet Volume 9.3, Neutrophils (%) (Auto) 60.2, Lymphocytes (%) (Auto) 25.3, Monocytes (%) (Auto) 10.3H, Eosinophils (%) (Auto) 3.3H, Basophils (%) (Auto) 1.1, Sodium Level 139, Potassium Level 4.1, Chloride Level 106, Carbon Dioxide Level 25, Anion Gap 8, Blood Urea Nitrogen 17, Creatinine 1.1, Estimat Glomerular Filtration Rate > 60, Glucose Level 132H, Calcium Level 8.7 Current Medications Medications (Trade) Dose Ordered Sig/Kristan Route PRN Reason Start Time Stop Time Status Last Admin Dose Admin Acetaminophen (Tylenol) 650 mg Q4H PRN ORAL FEVER and pain 07/09/19 17:50 08/06/19 17:49 Apixaban (Eliquis) 5 mg BID ORAL 07/09/19 18:00 08/03/19 08:59 07/10/19 08:11 Aspirin (ASA) 162 mg DAILY ORAL 07/10/19 09:00 08/03/19 08:59 07/10/19 08:11 Atorvastatin Calcium (Lipitor) 10 mg BEDTIME ORAL 07/09/19 21:00 08/03/19 20:59 07/09/19 21:29 Dextrose (Dextrose 50%) 25 ml Q30M PRN IV Hypoglycemia 07/09/19 17:15 08/02/19 21:44 Dextrose (Dextrose 50%) 50 ml Q30M PRN IV Hypoglycemia 07/09/19 17:15 08/02/19 21:44 Enalaprilat (Vasotec) 2.5 mg Q6H PRN IV sbp more than 160 07/09/19 17:53 08/02/19 17:52 Finasteride (Proscar) 5 mg DAILY ORAL 07/10/19 09:00 08/03/19 08:59 07/10/19 08:12 Insulin Aspart (NovoLOG) BEFORE MEALS AND HS SUBQ 07/09/19 21:00 08/03/19 06:29 07/10/19 11:44 Morphine Sulfate (Morphine Sulfate) 2 mg Q4H PRN IVP severe Pain (Pain Scale 7-10) 07/09/19 17:54 07/10/19 17:53 07/10/19 12:40 Nitroglycerin (Ntg) 0.4 mg Q5M PRN SL Prn Chest Pain 07/09/19 17:52 08/02/19 17:51 Ondansetron HCl (Zofran) 4 mg Q6H PRN IVP Nausea & Vomiting 07/09/19 17:52 08/02/19 17:51 Pantoprazole (Protonix) 40 mg DAILY ORAL 07/10/19 09:00 08/03/19 08:59 07/10/19 08:11 Polyethylene Glycol (Miralax) 17 gm DAILYPRN PRN ORAL Constipation 07/09/19 17:54 08/02/19 17:53 Tamsulosin HCl (Flomax) 0.4 mg BEDTIME ORAL 07/09/19 21:00 08/03/19 20:59 07/09/19 21:29 Temazepam (Restoril) 15 mg HSPRN PRN ORAL Insomnia 07/09/19 21:45 07/10/19 21:44 Violet Schmid MD Jul 10, 2019 13:21
--- NOTE | 2019-07-10 15:29 | NUR ---
CASE MANAGEMENT:REVIEW *-* DISCHARGE APPEALED *-* SI;SV TACHYCARDIA. PACEMAKER MALFUNCTION. 97.0 60 20 110/714 96% ON RA IS;ASA PO QD PROTONIX PO QD NTG SL PRN MORPHINE IV Q4HRS PRN ELIQUIS PO BID MED/SURG STATUS DCP; FROM HOME
[2019-07-10 16:06] VITALS: BP 120/60
--- NOTE | 2019-07-10 16:22 | Internal Med Progress Note ---
Subjective Date of Service: Jul 10, 2019 Physician Name AmaCharbel Attending Physician Rik Montes MD Current Medications Medications (Trade) Dose Ordered Sig/Kristan Route PRN Reason Start Time Stop Time Status Last Admin Dose Admin Acetaminophen (Tylenol) 650 mg Q4H PRN ORAL FEVER and pain 07/09/19 17:50 08/06/19 17:49 Apixaban (Eliquis) 5 mg BID ORAL 07/09/19 18:00 08/03/19 08:59 07/10/19 08:11 Aspirin (ASA) 162 mg DAILY ORAL 07/10/19 09:00 08/03/19 08:59 07/10/19 08:11 Atorvastatin Calcium (Lipitor) 10 mg BEDTIME ORAL 07/09/19 21:00 08/03/19 20:59 07/09/19 21:29 Dextrose (Dextrose 50%) 25 ml Q30M PRN IV Hypoglycemia 07/09/19 17:15 08/02/19 21:44 Dextrose (Dextrose 50%) 50 ml Q30M PRN IV Hypoglycemia 07/09/19 17:15 08/02/19 21:44 Enalaprilat (Vasotec) 2.5 mg Q6H PRN IV sbp more than 160 07/09/19 17:53 08/02/19 17:52 Finasteride (Proscar) 5 mg DAILY ORAL 07/10/19 09:00 08/03/19 08:59 07/10/19 08:12 Insulin Aspart (NovoLOG) BEFORE MEALS AND HS SUBQ 07/09/19 21:00 08/03/19 06:29 07/10/19 11:44 Morphine Sulfate (Morphine Sulfate) 2 mg Q4H PRN IVP severe Pain (Pain Scale 7-10) 07/09/19 17:54 07/10/19 17:53 07/10/19 12:40 Nitroglycerin (Ntg) 0.4 mg Q5M PRN SL Prn Chest Pain 07/09/19 17:52 08/02/19 17:51 Ondansetron HCl (Zofran) 4 mg Q6H PRN IVP Nausea & Vomiting 07/09/19 17:52 08/02/19 17:51 Pantoprazole (Protonix) 40 mg DAILY ORAL 07/10/19 09:00 08/03/19 08:59 07/10/19 08:11 Polyethylene Glycol (Miralax) 17 gm DAILYPRN PRN ORAL Constipation 07/09/19 17:54 08/02/19 17:53 Tamsulosin HCl (Flomax) 0.4 mg BEDTIME ORAL 07/09/19 21:00 08/03/19 20:59 07/09/19 21:29 Temazepam (Restoril) 15 mg HSPRN PRN ORAL Insomnia 07/09/19 21:45 07/10/19 21:44 Allergies: Coded Allergies: HYDROCODONE (Verified Adverse Reaction, Intermediate, N/V, 10/08/15) Uncoded Allergies: CONTRAST DYE (Allergy, Unknown, 03/15/19) ROS Limited/Unobtainable: No Constitutional: Reports: no symptoms HEENT: Reports: no symptoms Cardiovascular: Reports: no symptoms Respiratory: Reports: no symptoms Gastrointestinal/Abdominal: Reports: no symptoms Genitourinary: Reports: no symptoms Neurologic/Psychiatric: Reports: no symptoms Subjective 64 YO M admitted with chest pain. Now supraventricular tachycardia. Cover for Int Med-Dr Montes Objective Last Vital Signs Date Time Temp Pulse Resp B/P (MAP) Pulse Ox O2 Delivery O2 Flow Rate FiO2 07/10/19 16:06 96.5 64 18 120/60 (80) 99 07/10/19 09:00 Room Air 07/10/19 08:52 21 Laboratory Tests Test 07/10/19 06:39 White Blood Count 6.2 K/UL (4.8-10.8) Red Blood Count 4.66 M/UL (4.70-6.10) L Hemoglobin 12.9 G/DL (14.2-18.0) L Hematocrit 39.1 % (42.0-52.0) L Mean Corpuscular Volume 84 FL (80-99) Mean Corpuscular Hemoglobin 27.7 PG (27.0-31.0) Mean Corpuscular Hemoglobin Concent 33.1 G/DL (32.0-36.0) Red Cell Distribution Width 15.3 % (11.6-14.8) H Platelet Count 175 K/UL (150-450) Mean Platelet Volume 9.3 FL (6.5-10.1) Neutrophils (%) (Auto) 60.2 % (45.0-75.0) Lymphocytes (%) (Auto) 25.3 % (20.0-45.0) Monocytes (%) (Auto) 10.3 % (1.0-10.0) H Eosinophils (%) (Auto) 3.3 % (0.0-3.0) H Basophils (%) (Auto) 1.1 % (0.0-2.0) Sodium Level 139 MMOL/L (136-145) Potassium Level 4.1 MMOL/L (3.5-5.1) Chloride Level 106 MMOL/L (98-107) Carbon Dioxide Level 25 MMOL/L (21-32) Anion Gap 8 mmol/L (5-15) Blood Urea Nitrogen 17 mg/dL (7-18) Creatinine 1.1 MG/DL (0.55-1.30) Estimat Glomerular Filtration Rate > 60 mL/min (>60) Glucose Level 132 MG/DL (74-106) H Calcium Level 8.7 MG/DL (8.5-10.1) Intake and Output 07/09/19 07/10/19 19:00 07:00 Intake Total 800 ml 240 ml Output Total 500 ml Balance 800 ml -260 ml Intake Oral 800 ml 240 ml Output Urine Total 500 ml # Voids 3 2 Objective PHYSICAL EXAMINATION: GENERAL: The patient is awake and responsive, in no acute distress. HEAD AND NECK: Pupils are equal and reactive to light. Anicteric. Neck was supple. No JVD. LUNGS: Clear. No wheezing or rales. HEART: S1 and S2. Distant heart sounds. No murmur or gallops. ICD in the left-sided chest wall was noted. ABDOMEN: Soft, nondistended, and nontender. Positive bowel sounds. EXTREMITIES: No cyanosis, clubbing, or edema NEUROLOGIC: Cranial nerves II through XII grossly intact. Motor is 5/5 in all extremities. Gait is intact. RECTAL: Refused and deferred. GENITOURINARY: Refused and deferred. PSYCHIATRIC: Mood and affect are intact. Assessment/Plan Assessment/Plan ASSESSMENT: 1. Supraventricular tachycardia. 2. Pacemaker malfunctioning. 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 5. Hypertension. 6. Lumbar spondylosis. 7. Diabetes type 2. 8. BPH. PLAN: 1. Admit the patient to telemetry. 2. Cardiology=Drs. Askew and Avril-no further cardiac workup indicated 3. The patient's code status is Full Code. 4. DVT prophylaxis is Eliquis-H/O DVT and PE. 5. Await appeal of Discharge by patient to insurance Charbel Serrato MD Jul 10, 2019 16:22
--- NOTE | 2019-07-10 19:20 | NUR ---
HAND-OFF: Report given to Ms Larissa RN patient resting comfortably in bed no sign of distress matthias lopes.
[2019-07-10 20:00] VITALS: BP 109/59
--- NOTE | 2019-07-10 20:00 | NUR ---
NURSE NOTES: Received patient awake in bed, reading, AOx4. IV access patent, flushed with normal saline, dressing dry and intact. Bed low and locked, patient ambulatory, 2 side rails up. Will administer prn pain medication per MD order.
[2019-07-10] MEDS: Tamsulosin 0.4mg cap ORAL SCH (20:45)
[2019-07-11] VITALS: BP 110/67
[2019-07-11] MEDS: Morphine Sulfate 2mg/ml Inj(IV/IM USE ONLY) IVP PRN ×2 (04:29→08:41)
[2019-07-11 04:40] VITALS: BP 120/60
[2019-07-11] MEDS: NovoLOG Insulin Flexpen SUBQ SCH ×4 (06:07→21:19)
[2019-07-11 07:22] LABS: BASOPHILS % (AUTO) 1.6 % (0.0-2.0); EOSINOPHILS % (AUTO) 2.6 % (0.0-3.0); HEMATOCRIT 37.8 % (42.0-52.0); HEMOGLOBIN 13.1 G/DL (14.2-18.0); LYMPHOCYTES % (AUTO) 20.5 % (20.0-45.0); MEAN CORPUSCULAR VOLUME 81 FL (80-99); MONOCYTES % (AUTO) 10.2 % (1.0-10.0); NEUTROPHILS % (AUTO) 65.1 % (45.0-75.0); PLATELET COUNT 177 K/UL (150-450); RED BLOOD COUNT 4.67 M/UL (4.70-6.10); RED CELL DISTRIBUTION WIDTH 15.5 % (11.6-14.8); WHITE BLOOD COUNT 7.1 K/UL (4.8-10.8)
[2019-07-11 07:31] LABS: ANION GAP 10 mmol/L (5-15); BLOOD UREA NITROGEN 21 mg/dL (7-18); CARBON DIOXIDE 24 MMOL/L (21-32); CHLORIDE 107 MMOL/L (98-107); CREATININE 1.1 MG/DL (0.55-1.30); POTASSIUM 4.1 MMOL/L (3.5-5.1); SODIUM 141 MMOL/L (136-145)
[2019-07-11] MEDS: Eliquis 5mg tablet ORAL SCH ×2 (08:42→17:15)
[2019-07-11] MEDS: Aspirin Baby 81mg ORAL SCH (08:42)
[2019-07-11 12:00] VITALS: BP 136/81
--- NOTE | 2019-07-11 12:35 | NUR ---
NURSE NOTES: Spoke with Dr Montes to confirm dc order for IV morphine. Explained to patient that Dr Montes ordered tylenol for pain and no longer IV morphine. Dr Schmid at the bedside, both RN and MD explained to patient that IV morphine is no longer ordered. Patient stated "I will talk to Dr Montes when he gets here".
--- NOTE | 2019-07-11 13:00 | NUR ---
nurse notes received patient resting comfortably in bed, no sign of distress, HL patent, on fall precaution, denies pain or discomfort at this time, will continue to monitor guzman lopes
--- NOTE | 2019-07-11 13:02 | Pulmonology Progress Note ---
Assessment/Plan Problems: (1) Pacemaker malfunction (2) Palpitation (3) Ventricular mural thrombus (4) Chronic anticoagulation (5) HTN (hypertension) (6) Hx pulmonary embolism (7) Lumbar spondylosis (8) Diabetes mellitus Assessment/Plan c/o neck pain, demanding morphin cardiology input appreciated rate control symptomatic treatment continue current treatment dc planning Subjective ROS Limited/Unobtainable: No Constitutional: Reports: no symptoms Respiratory: Reports: no symptoms Allergies: Coded Allergies: HYDROCODONE (Verified Adverse Reaction, Intermediate, N/V, 10/08/15) Uncoded Allergies: CONTRAST DYE (Allergy, Unknown, 03/15/19) Objective Last 24 Hour Vital Signs Date Time Temp Pulse Resp B/P (MAP) Pulse Ox O2 Delivery O2 Flow Rate FiO2 07/11/19 12:00 97.2 65 18 136/81 (99) 99 07/11/19 11:20 Room Air 07/11/19 09:27 69 16 96 Room Air 21 07/11/19 04:59 98.1 07/11/19 04:40 98.1 71 18 120/60 (80) 99 07/11/19 00:00 97.9 62 18 110/67 (81) 99 07/10/19 22:23 Room Air 07/10/19 20:00 98.2 60 18 109/59 (76) 99 07/10/19 19:00 67 16 97 Room Air 21 07/10/19 16:06 96.5 64 18 120/60 (80) 99 Intake and Output 07/10/19 07/11/19 19:00 07:00 Intake Total 800 ml Output Total 600 ml Balance 200 ml Intake Oral 800 ml Output Urine Total 600 ml # Voids 2 2 General Appearance: WD/WN HEENT: normocephalic, atraumatic, PERRL Respiratory/Chest: chest wall non-tender, lungs clear Cardiovascular: normal peripheral pulses, normal rate Abdomen: normal bowel sounds Genitourinary: normal external genitalia Extremities: no cyanosis Neurologic/Psychiatric: surgery scheduler II-XII grossly normal Laboratory Tests 07/11/19 05:37: White Blood Count 7.1, Red Blood Count 4.67L, Hemoglobin 13.1L, Hematocrit 37.8L , Mean Corpuscular Volume 81, Mean Corpuscular Hemoglobin 28.0, Mean Corpuscular Hemoglobin Concent 34.6, Red Cell Distribution Width 15.5H, Platelet Count 177, Mean Platelet Volume 9.0, Neutrophils (%) (Auto) 65.1, Lymphocytes (%) (Auto) 20.5, Monocytes (%) (Auto) 10.2H, Eosinophils (%) (Auto) 2.6, Basophils (%) (Auto) 1.6, Sodium Level 141, Potassium Level 4.1, Chloride Level 107, Carbon Dioxide Level 24, Anion Gap 10, Blood Urea Nitrogen 21H, Creatinine 1.1, Estimat Glomerular Filtration Rate > 60, Glucose Level 146H, Calcium Level 9.0 Current Medications Medications (Trade) Dose Ordered Sig/Kristan Route PRN Reason Start Time Stop Time Status Last Admin Dose Admin Acetaminophen (Tylenol) 650 mg Q4H PRN ORAL FEVER and pain 07/09/19 17:50 08/06/19 17:49 Apixaban (Eliquis) 5 mg BID ORAL 07/09/19 18:00 08/03/19 08:59 07/11/19 08:42 Aspirin (ASA) 162 mg DAILY ORAL 07/10/19 09:00 08/03/19 08:59 07/11/19 08:42 Atorvastatin Calcium (Lipitor) 10 mg BEDTIME ORAL 07/09/19 21:00 08/03/19 20:59 07/10/19 20:39 Dextrose (Dextrose 50%) 25 ml Q30M PRN IV Hypoglycemia 07/09/19 17:15 08/02/19 21:44 Dextrose (Dextrose 50%) 50 ml Q30M PRN IV Hypoglycemia 07/09/19 17:15 08/02/19 21:44 Enalaprilat (Vasotec) 2.5 mg Q6H PRN IV sbp more than 160 07/09/19 17:53 08/02/19 17:52 Finasteride (Proscar) 5 mg DAILY ORAL 07/10/19 09:00 08/03/19 08:59 07/11/19 08:42 Insulin Aspart (NovoLOG) BEFORE MEALS AND HS SUBQ 07/09/19 21:00 08/03/19 06:29 07/10/19 20:40 Nitroglycerin (Ntg) 0.4 mg Q5M PRN SL Prn Chest Pain 07/09/19 17:52 08/02/19 17:51 Ondansetron HCl (Zofran) 4 mg Q6H PRN IVP Nausea & Vomiting 07/09/19 17:52 08/02/19 17:51 Pantoprazole (Protonix) 40 mg DAILY ORAL 07/10/19 09:00 08/03/19 08:59 07/11/19 08:41 Polyethylene Glycol (Miralax) 17 gm DAILYPRN PRN ORAL Constipation 07/09/19 17:54 08/02/19 17:53 Tamsulosin HCl (Flomax) 0.4 mg BEDTIME ORAL 07/09/19 21:00 08/03/19 20:59 07/10/19 20:45 Violet Schmid MD Jul 11, 2019 13:02
--- NOTE | 2019-07-11 14:10 | NUR ---
RD ASSESSMENT & RECOMMENDATIONS SEE CARE ACTIVITY FOR COMPLETE ASSESSMENT DAILY ESTIMATED NEEDS: Needs based on Cardiac, DM/ 75.6kg abw 25-30 kcals/kg 6326-0676 total kcals 1-1.3 g protein/kg 76-98 g total protein 25-30 mL/kg 4247-4015 total fluid mLs NUTRITION DIAGNOSIS: Decreased sodium intake needs R/T cardiac hx as evidenced by h/o pacemaker placement, HTN, dx of supraventricular tachycardia. CURRENT DIET:CCHO MED, SOFT EASY CHEW PO DIET RECOMMENDATIONS: LOW NA + CCHO MED/ texture as tolerated ADDITIONAL RECOMMENDATIONS: * Standing wt for accurate CBW * A1C for eval of glycemic control
--- NOTE | 2019-07-11 14:43 | NUR ---
HAND-OFF: Report given to KOREY Deluca.
--- NOTE | 2019-07-11 15:17 | NUR ---
CASE MANAGEMENT:REVIEW SI;SV TACHYCARDIA. PACEMAKER MALFUNCTION. 97.2 65 16 136/81 96% ON RA BUN 21 IS;PROTONIX PO QD FLOMAX PO QHS VASOTEC IV Q6 HRS PRN MED SURG STATUS PATIENT FILED DISCHARGE APPEAL WITH MEDICARE APPEAL PENDING
[2019-07-11 15:36] VITALS: BP 144/75
--- NOTE | 2019-07-11 15:38 | NUR ---
*-* INSURANCE *-* ALL CLINICALS AND REVIEWS HAVE BEEN FAXED TO: [facility] REF# [id number] F: [phone] P: [phone]
--- NOTE | 2019-07-11 16:30 | Internal Med Progress Note ---
Subjective Physician Name Rik Montes Attending Physician Rik Montes MD Current Medications Medications (Trade) Dose Ordered Sig/Kristan Route PRN Reason Start Time Stop Time Status Last Admin Dose Admin Acetaminophen (Tylenol) 650 mg Q4H PRN ORAL FEVER and pain 07/09/19 17:50 08/06/19 17:49 Apixaban (Eliquis) 5 mg BID ORAL 07/09/19 18:00 08/03/19 08:59 07/11/19 08:42 Aspirin (ASA) 162 mg DAILY ORAL 07/10/19 09:00 08/03/19 08:59 07/11/19 08:42 Atorvastatin Calcium (Lipitor) 10 mg BEDTIME ORAL 07/09/19 21:00 08/03/19 20:59 07/10/19 20:39 Dextrose (Dextrose 50%) 25 ml Q30M PRN IV Hypoglycemia 07/09/19 17:15 08/02/19 21:44 Dextrose (Dextrose 50%) 50 ml Q30M PRN IV Hypoglycemia 07/09/19 17:15 08/02/19 21:44 Enalaprilat (Vasotec) 2.5 mg Q6H PRN IV sbp more than 160 07/09/19 17:53 08/02/19 17:52 Finasteride (Proscar) 5 mg DAILY ORAL 07/10/19 09:00 08/03/19 08:59 07/11/19 08:42 Insulin Aspart (NovoLOG) BEFORE MEALS AND HS SUBQ 07/09/19 21:00 08/03/19 06:29 07/10/19 20:40 Nitroglycerin (Ntg) 0.4 mg Q5M PRN SL Prn Chest Pain 07/09/19 17:52 08/02/19 17:51 Ondansetron HCl (Zofran) 4 mg Q6H PRN IVP Nausea & Vomiting 07/09/19 17:52 08/02/19 17:51 Pantoprazole (Protonix) 40 mg DAILY ORAL 07/10/19 09:00 08/03/19 08:59 07/11/19 08:41 Polyethylene Glycol (Miralax) 17 gm DAILYPRN PRN ORAL Constipation 07/09/19 17:54 08/02/19 17:53 Tamsulosin HCl (Flomax) 0.4 mg BEDTIME ORAL 07/09/19 21:00 08/03/19 20:59 07/10/19 20:45 Allergies: Coded Allergies: HYDROCODONE (Verified Adverse Reaction, Intermediate, N/V, 10/08/15) Uncoded Allergies: CONTRAST DYE (Allergy, Unknown, 03/15/19) Subjective Awake, alert, responsive, denies any chest pain or shortness of breath, walking around in the room without any distress. Objective Last Vital Signs Date Time Temp Pulse Resp B/P (MAP) Pulse Ox O2 Delivery O2 Flow Rate FiO2 07/11/19 15:36 98.0 78 20 144/75 (98) 98 07/11/19 13:00 Room Air 07/11/19 09:27 21 Laboratory Tests Test 07/11/19 05:37 White Blood Count 7.1 K/UL (4.8-10.8) Red Blood Count 4.67 M/UL (4.70-6.10) L Hemoglobin 13.1 G/DL (14.2-18.0) L Hematocrit 37.8 % (42.0-52.0) L Mean Corpuscular Volume 81 FL (80-99) Mean Corpuscular Hemoglobin 28.0 PG (27.0-31.0) Mean Corpuscular Hemoglobin Concent 34.6 G/DL (32.0-36.0) Red Cell Distribution Width 15.5 % (11.6-14.8) H Platelet Count 177 K/UL (150-450) Mean Platelet Volume 9.0 FL (6.5-10.1) Neutrophils (%) (Auto) 65.1 % (45.0-75.0) Lymphocytes (%) (Auto) 20.5 % (20.0-45.0) Monocytes (%) (Auto) 10.2 % (1.0-10.0) H Eosinophils (%) (Auto) 2.6 % (0.0-3.0) Basophils (%) (Auto) 1.6 % (0.0-2.0) Sodium Level 141 MMOL/L (136-145) Potassium Level 4.1 MMOL/L (3.5-5.1) Chloride Level 107 MMOL/L (98-107) Carbon Dioxide Level 24 MMOL/L (21-32) Anion Gap 10 mmol/L (5-15) Blood Urea Nitrogen 21 mg/dL (7-18) H Creatinine 1.1 MG/DL (0.55-1.30) Estimat Glomerular Filtration Rate > 60 mL/min (>60) Glucose Level 146 MG/DL (74-106) H Calcium Level 9.0 MG/DL (8.5-10.1) Intake and Output 07/10/19 07/11/19 19:00 07:00 Intake Total 800 ml Output Total 600 ml Balance 200 ml Intake Oral 800 ml Output Urine Total 600 ml # Voids 2 2 Objective GENERAL: Awake, responsive, in no acute distress. HEAD AND NECK: Pupils are equal and reactive to light. Anicteric. Neck was supple. No JVD. LUNGS: Clear. No wheezing or rales. HEART: S1 and S2. Distant heart sounds. No murmur or gallops. ICD @ left- sided chest wall. ABDOMEN: Soft, nondistended, and nontender. Positive bowel sounds. EXTREMITIES: No cyanosis, clubbing, or edema NEUROLOGIC: Cranial nerves II through XII grossly intact. Motor is 5/5 in all extremities. Gait is intact. RECTAL: Refused and deferred. GENITOURINARY: Refused and deferred. PSYCHIATRIC: Mood and affect are intact. Assessment/Plan Assessment/Plan Assessment/Plan Assessment/Plan Assessment/Plan ASSESSMENT: 1. Supraventricular tachycardia. 2. Pacemaker malfunctioning. 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 5. Hypertension. 6. Lumbar spondylosis. 7. Diabetes type 2. 8. BPH. PLAN: 1. In Med- surgery. 2. Cardiology=Drs. Askew and Avril-no further cardiac workup indicated 3. Code status: Full Code. 4. DVT prophylaxis is Eliquis-H/O DVT and PE. 5. Await appeal of Discharge by patient to insurance Consider transition to IV morphine to oral pain medication in anticipation of the discharge soon. Rik Montes MD Jul 11, 2019 16:30
--- NOTE | 2019-07-11 19:43 | NUR ---
HAND-OFF: Report given to Olivier NAIR ccordingly matthias Chamorro.
[2019-07-11 20:00] VITALS: BP 101/60
--- NOTE | 2019-07-11 20:27 | NUR ---
NURSE NOTES: Patient in bed sleeping at this time. No signs of distress. IV intact and patent. Bed locked and in lowest position. Call light in easy reach. Will continue to monitor.
[2019-07-11] MEDS: Tamsulosin 0.4mg cap ORAL SCH (21:14)
[2019-07-12] VITALS (7 sets, daily range): BP systolic 105–132; BP diastolic 64–80
[2019-07-12] MEDS: NovoLOG Insulin Flexpen SUBQ SCH ×5 (06:30→21:14)
--- NOTE | 2019-07-12 07:20 | NUR ---
NURSE NOTES: Handoff received from KOREY Nicole. Patient received awake and alert and able to make needs known, no acute signs of distress noted. Patient has IV site clean dry and intact, saline locked, Bed in the low and locked position with call light within reach, will continue to monitor patient.
--- NOTE | 2019-07-12 07:24 | NUR ---
HAND-OFF: Report given to KOREY Aparicio.
[2019-07-12] MEDS: Eliquis 5mg tablet ORAL SCH ×2 (10:21→17:19)
[2019-07-12] MEDS: Aspirin Baby 81mg ORAL SCH (10:22)
--- NOTE | 2019-07-12 10:35 | NUR ---
NURSE NOTES:Handoff given to KOREY Mayes.
--- NOTE | 2019-07-12 14:10 | Internal Med Progress Note ---
Subjective Date of Service: Jul 12, 2019 Physician Name Serrato,Charbel Attending Physician Rik Montes MD Current Medications Medications (Trade) Dose Ordered Sig/Kristan Route PRN Reason Start Time Stop Time Status Last Admin Dose Admin Acetaminophen (Tylenol) 650 mg Q4H PRN ORAL FEVER and pain 07/09/19 17:50 08/06/19 17:49 07/12/19 02:03 Apixaban (Eliquis) 5 mg BID ORAL 07/09/19 18:00 08/03/19 08:59 07/12/19 10:21 Aspirin (ASA) 162 mg DAILY ORAL 07/10/19 09:00 08/03/19 08:59 07/12/19 10:22 Atorvastatin Calcium (Lipitor) 10 mg BEDTIME ORAL 07/09/19 21:00 08/03/19 20:59 07/11/19 21:14 Dextrose (Dextrose 50%) 25 ml Q30M PRN IV Hypoglycemia 07/09/19 17:15 08/02/19 21:44 Dextrose (Dextrose 50%) 50 ml Q30M PRN IV Hypoglycemia 07/09/19 17:15 08/02/19 21:44 Enalaprilat (Vasotec) 2.5 mg Q6H PRN IV sbp more than 160 07/09/19 17:53 08/02/19 17:52 Finasteride (Proscar) 5 mg DAILY ORAL 07/10/19 09:00 08/03/19 08:59 07/12/19 10:22 Insulin Aspart (NovoLOG) BEFORE MEALS AND HS SUBQ 07/09/19 21:00 08/03/19 06:29 07/11/19 21:19 Nitroglycerin (Ntg) 0.4 mg Q5M PRN SL Prn Chest Pain 07/09/19 17:52 08/02/19 17:51 Ondansetron HCl (Zofran) 4 mg Q6H PRN IVP Nausea & Vomiting 07/09/19 17:52 08/02/19 17:51 Pantoprazole (Protonix) 40 mg DAILY ORAL 07/10/19 09:00 08/03/19 08:59 07/12/19 10:22 Polyethylene Glycol (Miralax) 17 gm DAILYPRN PRN ORAL Constipation 07/09/19 17:54 08/02/19 17:53 Tamsulosin HCl (Flomax) 0.4 mg BEDTIME ORAL 07/09/19 21:00 08/03/19 20:59 07/11/19 21:14 Allergies: Coded Allergies: HYDROCODONE (Verified Adverse Reaction, Intermediate, N/V, 10/08/15) Uncoded Allergies: CONTRAST DYE (Allergy, Unknown, 03/15/19) ROS Limited/Unobtainable: No Constitutional: Reports: no symptoms HEENT: Reports: no symptoms Cardiovascular: Reports: no symptoms Respiratory: Reports: no symptoms Gastrointestinal/Abdominal: Reports: no symptoms Genitourinary: Reports: no symptoms Neurologic/Psychiatric: Reports: no symptoms Subjective 64 YO M admitted with chest pain. Now supraventricular tachycardia. Cover for Int Med-Dr Montes Objective Last Vital Signs Date Time Temp Pulse Resp B/P (MAP) Pulse Ox O2 Delivery O2 Flow Rate FiO2 07/12/19 12:00 98.3 76 17 132/78 (96) 99 07/12/19 09:00 Room Air 07/12/19 08:38 21 Intake and Output 07/11/19 07/12/19 19:00 07:00 Intake Total 1320 ml 480 ml Balance 1320 ml 480 ml Intake Oral 1320 ml 480 ml # Voids 2 2 Objective PHYSICAL EXAMINATION: GENERAL: The patient is awake and responsive, in no acute distress. HEAD AND NECK: Pupils are equal and reactive to light. Anicteric. Neck was supple. No JVD. LUNGS: Clear. No wheezing or rales. HEART: S1 and S2. Distant heart sounds. No murmur or gallops. ICD in the left-sided chest wall was noted. ABDOMEN: Soft, nondistended, and nontender. Positive bowel sounds. EXTREMITIES: No cyanosis, clubbing, or edema NEUROLOGIC: Cranial nerves II through XII grossly intact. Motor is 5/5 in all extremities. Gait is intact. RECTAL: Refused and deferred. GENITOURINARY: Refused and deferred. PSYCHIATRIC: Mood and affect are intact. Assessment/Plan Assessment/Plan ASSESSMENT: 1. Supraventricular tachycardia. 2. Pacemaker malfunctioning. 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 5. Hypertension. 6. Lumbar spondylosis. 7. Diabetes type 2. 8. BPH. PLAN: 1. Admit the patient to telemetry. 2. Cardiology=Drs. Askew and Gallik-no further cardiac workup indicated 3. The patient's code status is Full Code. 4. DVT prophylaxis is Eliquis-H/O DVT and PE. 5. Await appeal of Discharge by patient to insurance Charbel Serrato MD Jul 12, 2019 14:10
--- NOTE | 2019-07-12 14:37 | NUR ---
CASE MANAGEMENT: REVIEW SI: PACEMAKER MALFUNCTION . DM T 97.3 HR 62 RR 20 BP 105/73 SAT 97% ROOM AIR BEDSIDE GLUCOSE 123 IS: ELEQUIS 5MG PO BID ASA 162MG PO QD PROTONIX PO QD FLOMAX PO QHS NOVOLOG SUBQ AC+HR MED SURG STATUS DCP: PATIENT IS FROM HOME
--- NOTE | 2019-07-12 15:37 | Pulmonology Progress Note ---
Assessment/Plan Problems: (1) Pacemaker malfunction (2) Palpitation (3) Ventricular mural thrombus (4) Chronic anticoagulation (5) HTN (hypertension) (6) Hx pulmonary embolism (7) Lumbar spondylosis (8) Diabetes mellitus Assessment/Plan c/o neck pain, demanding morphin cardiology input appreciated rate control symptomatic treatment continue current treatment pt appealed the discharge dc planning Subjective ROS Limited/Unobtainable: No Constitutional: Reports: no symptoms HEENT: Repors: no symptoms Allergies: Coded Allergies: HYDROCODONE (Verified Adverse Reaction, Intermediate, N/V, 10/08/15) Uncoded Allergies: CONTRAST DYE (Allergy, Unknown, 03/15/19) Objective Last 24 Hour Vital Signs Date Time Temp Pulse Resp B/P (MAP) Pulse Ox O2 Delivery O2 Flow Rate FiO2 07/12/19 12:00 98.3 76 17 132/78 (96) 99 07/12/19 09:37 98.7 62 14 105/73 (84) 98 07/12/19 09:00 Room Air 07/12/19 08:38 68 16 97 Room Air 21 07/12/19 08:00 98.2 70 18 130/80 (97) 99 07/12/19 04:00 97.3 64 20 118/72 (87) 99 07/12/19 00:00 97.4 64 19 115/64 (81) 98 07/11/19 20:25 Room Air 07/11/19 20:16 70 18 95 Room Air 21 07/11/19 20:00 98.4 68 20 101/60 (74) 99 Intake and Output 07/11/19 07/12/19 19:00 07:00 Intake Total 1320 ml 480 ml Balance 1320 ml 480 ml Intake Oral 1320 ml 480 ml # Voids 2 2 Objective General Appearance: WD/WN HEENT: normocephalic, atraumatic Respiratory/Chest: chest wall non-tender, lungs clear Breasts: no masses Cardiovascular: normal peripheral pulses Abdomen: normal bowel sounds, soft, non tender Genitourinary: normal external genitalia Extremities: no cyanosis Neurologic/Psychiatric: family service aide II-XII grossly normal Lymphatic: no neck adenopathy Current Medications Medications (Trade) Dose Ordered Sig/Kristan Route PRN Reason Start Time Stop Time Status Last Admin Dose Admin Acetaminophen (Tylenol) 650 mg Q4H PRN ORAL FEVER and pain 07/09/19 17:50 08/06/19 17:49 07/12/19 02:03 Apixaban (Eliquis) 5 mg BID ORAL 07/09/19 18:00 08/03/19 08:59 07/12/19 10:21 Aspirin (ASA) 162 mg DAILY ORAL 07/10/19 09:00 08/03/19 08:59 07/12/19 10:22 Atorvastatin Calcium (Lipitor) 10 mg BEDTIME ORAL 07/09/19 21:00 08/03/19 20:59 07/11/19 21:14 Dextrose (Dextrose 50%) 25 ml Q30M PRN IV Hypoglycemia 07/09/19 17:15 08/02/19 21:44 Dextrose (Dextrose 50%) 50 ml Q30M PRN IV Hypoglycemia 07/09/19 17:15 08/02/19 21:44 Enalaprilat (Vasotec) 2.5 mg Q6H PRN IV sbp more than 160 07/09/19 17:53 08/02/19 17:52 Finasteride (Proscar) 5 mg DAILY ORAL 07/10/19 09:00 08/03/19 08:59 07/12/19 10:22 Insulin Aspart (NovoLOG) BEFORE MEALS AND HS SUBQ 07/09/19 21:00 08/03/19 06:29 07/11/19 21:19 Nitroglycerin (Ntg) 0.4 mg Q5M PRN SL Prn Chest Pain 07/09/19 17:52 08/02/19 17:51 Ondansetron HCl (Zofran) 4 mg Q6H PRN IVP Nausea & Vomiting 07/09/19 17:52 08/02/19 17:51 Pantoprazole (Protonix) 40 mg DAILY ORAL 07/10/19 09:00 08/03/19 08:59 07/12/19 10:22 Polyethylene Glycol (Miralax) 17 gm DAILYPRN PRN ORAL Constipation 07/09/19 17:54 08/02/19 17:53 Tamsulosin HCl (Flomax) 0.4 mg BEDTIME ORAL 07/09/19 21:00 08/03/19 20:59 07/11/19 21:14 Violet Schmid MD Jul 12, 2019 15:37
--- NOTE | 2019-07-12 17:35 | NUR ---
NURSE NOTES: Patient refused to take insulin. Patient stated he felt "disrespected" and to "take the insulin out of the room, I don't want it". Tried to educate patient on side effects of not taking insulin. Patient's became increasingly agitated. Charge nurse Nimo tried to educate patient as well. Patient still refused to take insulin.
--- NOTE | 2019-07-12 19:49 | NUR ---
HAND-OFF: Report given to Swathi NAIR.
[2019-07-12] MEDS: Tamsulosin 0.4mg cap ORAL SCH (21:12)
[2019-07-13] VITALS: BP 120/68
--- NOTE | 2019-07-13 | NUR ---
NURSE NOTES: Pt os AOx4 and verbally responsive. Breathing even and unlabored. No respiratory or cardiac distress noted. No c/o pain at this time. Bed in low and locked position. Call light within reach. will continue to monitor the pt.
[2019-07-13 04:00] VITALS: BP 124/66
[2019-07-13] MEDS: NovoLOG Insulin Flexpen SUBQ SCH ×4 (06:30→22:28)
--- NOTE | 2019-07-13 06:35 | NUR ---
NURSE NOTES: Pt refused to check his BS at 0600. Made multiple attempt to check blood sugar and give insulin, and explain and educate about the importance of checking BS, despite of education and encouragement pt refused BS check. Charge Nurse made aware.
--- NOTE | 2019-07-13 07:25 | NUR ---
HAND-OFF: Report given to KOREY Sullivan.
--- NOTE | 2019-07-13 07:50 | NUR ---
NURSE NOTES: Went to greet patient and update communication board, patient told me to leave the room, and stated, "I'm sick of everyone."
[2019-07-13 08:00] VITALS: BP 96/61
[2019-07-13] MEDS: Eliquis 5mg tablet ORAL SCH ×2 (09:19→17:42)
[2019-07-13] MEDS: Aspirin Baby 81mg ORAL SCH (09:19)
[2019-07-13 12:00] VITALS: BP 99/62
--- NOTE | 2019-07-13 14:17 | Internal Med Progress Note ---
Subjective Date of Service: Jul 13, 2019 Physician Name AmaCharbel Attending Physician Rik Montes MD Current Medications Medications (Trade) Dose Ordered Sig/Kristan Route PRN Reason Start Time Stop Time Status Last Admin Dose Admin Acetaminophen (Tylenol) 650 mg Q4H PRN ORAL FEVER and pain 07/09/19 17:50 08/06/19 17:49 07/12/19 02:03 Apixaban (Eliquis) 5 mg BID ORAL 07/09/19 18:00 08/03/19 08:59 07/13/19 09:19 Aspirin (ASA) 162 mg DAILY ORAL 07/10/19 09:00 08/03/19 08:59 07/13/19 09:19 Atorvastatin Calcium (Lipitor) 10 mg BEDTIME ORAL 07/09/19 21:00 08/03/19 20:59 07/12/19 21:12 Dextrose (Dextrose 50%) 25 ml Q30M PRN IV Hypoglycemia 07/09/19 17:15 08/02/19 21:44 Dextrose (Dextrose 50%) 50 ml Q30M PRN IV Hypoglycemia 07/09/19 17:15 08/02/19 21:44 Enalaprilat (Vasotec) 2.5 mg Q6H PRN IV sbp more than 160 07/09/19 17:53 08/02/19 17:52 Finasteride (Proscar) 5 mg DAILY ORAL 07/10/19 09:00 08/03/19 08:59 07/13/19 09:19 Insulin Aspart (NovoLOG) BEFORE MEALS AND HS SUBQ 07/09/19 21:00 08/03/19 06:29 07/12/19 21:14 Nitroglycerin (Ntg) 0.4 mg Q5M PRN SL Prn Chest Pain 07/09/19 17:52 08/02/19 17:51 Ondansetron HCl (Zofran) 4 mg Q6H PRN IVP Nausea & Vomiting 07/09/19 17:52 08/02/19 17:51 Pantoprazole (Protonix) 40 mg DAILY ORAL 07/10/19 09:00 08/03/19 08:59 07/13/19 09:19 Polyethylene Glycol (Miralax) 17 gm DAILYPRN PRN ORAL Constipation 07/09/19 17:54 08/02/19 17:53 Tamsulosin HCl (Flomax) 0.4 mg BEDTIME ORAL 07/09/19 21:00 08/03/19 20:59 07/12/19 21:12 Allergies: Coded Allergies: HYDROCODONE (Verified Adverse Reaction, Intermediate, N/V, 10/08/15) Uncoded Allergies: CONTRAST DYE (Allergy, Unknown, 03/15/19) ROS Limited/Unobtainable: No Constitutional: Reports: no symptoms HEENT: Reports: no symptoms Cardiovascular: Reports: no symptoms Respiratory: Reports: no symptoms Gastrointestinal/Abdominal: Reports: no symptoms Genitourinary: Reports: no symptoms Neurologic/Psychiatric: Reports: no symptoms Subjective 64 YO M admitted with chest pain. Now supraventricular tachycardia. Cover for Int Med-Dr Montes Objective Last Vital Signs Date Time Temp Pulse Resp B/P (MAP) Pulse Ox O2 Delivery O2 Flow Rate FiO2 07/13/19 12:00 97.4 61 18 99/62 (74) 98 07/13/19 09:00 Room Air 07/12/19 08:38 21 Intake and Output 07/12/19 07/13/19 19:00 07:00 Intake Total 200 ml 200 ml Output Total 600 ml Balance 200 ml -400 ml Intake Oral 200 ml 200 ml Output Urine Total 600 ml # Voids 4 4 # Bowel Movements 1 Objective PHYSICAL EXAMINATION: GENERAL: The patient is awake and responsive, in no acute distress. HEAD AND NECK: Pupils are equal and reactive to light. Anicteric. Neck was supple. No JVD. LUNGS: Clear. No wheezing or rales. HEART: S1 and S2. Distant heart sounds. No murmur or gallops. ICD in the left-sided chest wall was noted. ABDOMEN: Soft, nondistended, and nontender. Positive bowel sounds. EXTREMITIES: No cyanosis, clubbing, or edema NEUROLOGIC: Cranial nerves II through XII grossly intact. Motor is 5/5 in all extremities. Gait is intact. RECTAL: Refused and deferred. GENITOURINARY: Refused and deferred. PSYCHIATRIC: Mood and affect are intact. Assessment/Plan Assessment/Plan ASSESSMENT: 1. Supraventricular tachycardia. 2. Pacemaker malfunctioning. 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 5. Hypertension. 6. Lumbar spondylosis. 7. Diabetes type 2. 8. BPH. PLAN: 1. Admit the patient to telemetry. 2. Cardiology=Drs. Askew and Avril-no further cardiac workup indicated 3. The patient's code status is Full Code. 4. DVT prophylaxis is Eliquis-H/O DVT and PE. 5. Await appeal of Discharge by patient to insurance Charbel Serrato MD Jul 13, 2019 14:17
--- NOTE | 2019-07-13 15:08 | Pulmonology Progress Note ---
Assessment/Plan Problems: (1) Pacemaker malfunction (2) Palpitation (3) Ventricular mural thrombus (4) Chronic anticoagulation (5) HTN (hypertension) (6) Hx pulmonary embolism (7) Lumbar spondylosis (8) Diabetes mellitus Assessment/Plan c/o neck pain, demanding morphin cardiology input appreciated rate control symptomatic treatment continue current treatment pt appealed the discharge dc planning Subjective ROS Limited/Unobtainable: No Allergies: Coded Allergies: HYDROCODONE (Verified Adverse Reaction, Intermediate, N/V, 10/08/15) Uncoded Allergies: CONTRAST DYE (Allergy, Unknown, 03/15/19) Objective Last 24 Hour Vital Signs Date Time Temp Pulse Resp B/P (MAP) Pulse Ox O2 Delivery O2 Flow Rate FiO2 07/13/19 12:00 97.4 61 18 99/62 (74) 98 07/13/19 09:00 Room Air 07/13/19 08:00 97.4 62 17 96/61 (73) 98 07/13/19 04:00 97.0 64 18 124/66 (85) 96 07/13/19 00:00 97.9 60 18 120/68 (85) 96 07/12/19 21:00 Room Air 07/12/19 20:00 97.5 68 19 121/67 (85) 100 07/12/19 16:00 98.0 76 18 130/74 (92) 100 Intake and Output 07/12/19 07/13/19 19:00 07:00 Intake Total 200 ml 200 ml Output Total 600 ml Balance 200 ml -400 ml Intake Oral 200 ml 200 ml Output Urine Total 600 ml # Voids 4 4 # Bowel Movements 1 Objective General Appearance: WD/WN HEENT: normocephalic, atraumatic Respiratory/Chest: chest wall non-tender, lungs clear Breasts: no masses Cardiovascular: normal peripheral pulses Abdomen: normal bowel sounds, soft, non tender Genitourinary: normal external genitalia Extremities: no cyanosis Neurologic/Psychiatric: exhibit display representative II-XII grossly normal Lymphatic: no neck adenopathy Current Medications Medications (Trade) Dose Ordered Sig/Kristan Route PRN Reason Start Time Stop Time Status Last Admin Dose Admin Acetaminophen (Tylenol) 650 mg Q4H PRN ORAL FEVER and pain 07/09/19 17:50 08/06/19 17:49 07/12/19 02:03 Apixaban (Eliquis) 5 mg BID ORAL 07/09/19 18:00 08/03/19 08:59 07/13/19 09:19 Aspirin (ASA) 162 mg DAILY ORAL 07/10/19 09:00 08/03/19 08:59 07/13/19 09:19 Atorvastatin Calcium (Lipitor) 10 mg BEDTIME ORAL 07/09/19 21:00 08/03/19 20:59 07/12/19 21:12 Dextrose (Dextrose 50%) 25 ml Q30M PRN IV Hypoglycemia 07/09/19 17:15 08/02/19 21:44 Dextrose (Dextrose 50%) 50 ml Q30M PRN IV Hypoglycemia 07/09/19 17:15 08/02/19 21:44 Enalaprilat (Vasotec) 2.5 mg Q6H PRN IV sbp more than 160 07/09/19 17:53 08/02/19 17:52 Finasteride (Proscar) 5 mg DAILY ORAL 07/10/19 09:00 08/03/19 08:59 07/13/19 09:19 Insulin Aspart (NovoLOG) BEFORE MEALS AND HS SUBQ 07/09/19 21:00 08/03/19 06:29 07/12/19 21:14 Nitroglycerin (Ntg) 0.4 mg Q5M PRN SL Prn Chest Pain 07/09/19 17:52 08/02/19 17:51 Ondansetron HCl (Zofran) 4 mg Q6H PRN IVP Nausea & Vomiting 07/09/19 17:52 08/02/19 17:51 Pantoprazole (Protonix) 40 mg DAILY ORAL 07/10/19 09:00 08/03/19 08:59 07/13/19 09:19 Polyethylene Glycol (Miralax) 17 gm DAILYPRN PRN ORAL Constipation 07/09/19 17:54 08/02/19 17:53 Tamsulosin HCl (Flomax) 0.4 mg BEDTIME ORAL 07/09/19 21:00 08/03/19 20:59 07/12/19 21:12 Violet Schmid MD Jul 13, 2019 15:08
[2019-07-13 16:00] VITALS: BP 111/65
--- NOTE | 2019-07-13 19:30 | NUR ---
HAND-OFF: Report given to KOREY Daniel. Patient sitting up in bed, watching television, no c/o pain, no SOB, bed in lowest position, call light within reach, in no apparent distress.
[2019-07-13 20:00] VITALS: BP 97/62
--- NOTE | 2019-07-13 20:53 | NUR ---
NURSE NOTES: Pt wil in bed, awake and alert. No acute distress noted. vitals stable. 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 Dr. Schmid called and order received to continue them. Fall precaution in place, bed alarm on, bed locked low in position,side rails up and call light within reach. Pt will be monitored.
[2019-07-13] MEDS: Tamsulosin 0.4mg cap ORAL SCH (22:20)
[2019-07-13] MEDS: Cosopt Opth Soln 10 mL Btl BOTH EYES SCH (22:21)
[2019-07-13] MEDS: Brimonidine 0.2% Opth Sol BOTH EYES SCH (22:21)
[2019-07-14] VITALS: BP 98/70
--- NOTE | 2019-07-14 03:25 | NUR ---
NURSE NOTES: Pt is in bed, asleep. No acute distress noted.
[2019-07-14 04:00] VITALS: BP 99/62
--- NOTE | 2019-07-14 06:00 | NUR ---
NURSE NOTES: Pt refused blood draw for labs despite encouragement and education.
[2019-07-14] MEDS: NovoLOG Insulin Flexpen SUBQ SCH ×4 (06:15→21:00)
--- NOTE | 2019-07-14 07:20 | NUR ---
NURSE NOTES: received patient in bed, patient awake, alert, oriented x4, no sign of distress, HL patent , on fall precaution, both siderails for safety , plan of care was discussed verbalized understanding, 4 P;s in progress call light w/n reach matthias lopes
--- NOTE | 2019-07-14 07:25 | NUR ---
HAND-OFF: Report given to KOREY Deluca.
[2019-07-14 08:00] VITALS: BP 128/77
[2019-07-14] MEDS: Aspirin Baby 81mg ORAL SCH (08:27)
[2019-07-14] MEDS: Eliquis 5mg tablet ORAL SCH ×2 (08:27→17:12)
[2019-07-14] MEDS: Cosopt Opth Soln 10 mL Btl BOTH EYES SCH ×2 (08:28→17:12)
[2019-07-14] MEDS: Brimonidine 0.2% Opth Sol BOTH EYES SCH ×3 (08:29→17:12)
[2019-07-14 12:07] VITALS: BP 103/60
--- NOTE | 2019-07-14 13:52 | Pulmonology Progress Note ---
Assessment/Plan Problems: (1) Pacemaker malfunction (2) Palpitation (3) Ventricular mural thrombus (4) Chronic anticoagulation (5) HTN (hypertension) (6) Hx pulmonary embolism (7) Lumbar spondylosis (8) Diabetes mellitus Assessment/Plan DOING BETTER, PACING IN HIS ROOM cardiology input appreciated rate control symptomatic treatment continue current treatment pt appealed the discharge dc planning Subjective ROS Limited/Unobtainable: No Constitutional: Reports: no symptoms HEENT: Repors: no symptoms Allergies: Coded Allergies: HYDROCODONE (Verified Adverse Reaction, Intermediate, N/V, 10/08/15) Uncoded Allergies: CONTRAST DYE (Allergy, Unknown, 03/15/19) Objective Last 24 Hour Vital Signs Date Time Temp Pulse Resp B/P (MAP) Pulse Ox O2 Delivery O2 Flow Rate FiO2 07/14/19 12:07 97.3 62 19 103/60 (74) 98 07/14/19 08:50 Room Air 07/14/19 08:00 97.5 68 18 128/77 (94) 98 07/14/19 04:00 98.0 65 18 99/62 (74) 95 07/14/19 00:00 98.0 65 18 98/70 (79) 95 07/13/19 21:00 Room Air 07/13/19 20:00 97.7 64 18 97/62 (74) 95 07/13/19 16:00 97.5 60 17 111/65 (80) 99 Intake and Output 07/13/19 07/14/19 18:59 06:59 # Voids 1 Objective General Appearance: WD/WN HEENT: normocephalic, atraumatic Respiratory/Chest: chest wall non-tender, lungs clear Breasts: no masses Cardiovascular: normal peripheral pulses Abdomen: normal bowel sounds, soft, non tender Genitourinary: normal external genitalia Extremities: no cyanosis Neurologic/Psychiatric: chef II-XII grossly normal Lymphatic: no neck adenopathy Current Medications Medications (Trade) Dose Ordered Sig/Kristan Route PRN Reason Start Time Stop Time Status Last Admin Dose Admin Acetaminophen (Tylenol) 650 mg Q4H PRN ORAL FEVER and pain 07/09/19 17:50 08/06/19 17:49 07/12/19 02:03 Apixaban (Eliquis) 5 mg BID ORAL 07/09/19 18:00 08/03/19 08:59 07/14/19 08:27 Aspirin (ASA) 162 mg DAILY ORAL 07/10/19 09:00 08/03/19 08:59 07/14/19 08:27 Atorvastatin Calcium (Lipitor) 10 mg BEDTIME ORAL 07/09/19 21:00 08/03/19 20:59 07/13/19 22:20 Brimonidine Tartrate (Alphagan) 1 drop TID BOTH EYES 07/13/19 22:00 08/12/19 21:59 07/14/19 12:20 Dextrose (Dextrose 50%) 25 ml Q30M PRN IV Hypoglycemia 07/09/19 17:15 08/02/19 21:44 Dextrose (Dextrose 50%) 50 ml Q30M PRN IV Hypoglycemia 07/09/19 17:15 08/02/19 21:44 Dorzolamide/ Timolol (Cosopt) 1 drop TWICE A DAY BOTH EYES 07/13/19 22:00 08/12/19 21:59 07/14/19 08:28 Enalaprilat (Vasotec) 2.5 mg Q6H PRN IV sbp more than 160 07/09/19 17:53 08/02/19 17:52 Finasteride (Proscar) 5 mg DAILY ORAL 07/10/19 09:00 08/03/19 08:59 07/14/19 08:27 Insulin Aspart (NovoLOG) BEFORE MEALS AND HS SUBQ 07/09/19 21:00 08/03/19 06:29 07/13/19 22:28 Latanoprost (Xalatan) 1 drop BEDTIME BOTH EYES 07/14/19 22:00 08/13/19 21:59 Nitroglycerin (Ntg) 0.4 mg Q5M PRN SL Prn Chest Pain 07/09/19 17:52 08/02/19 17:51 Ondansetron HCl (Zofran) 4 mg Q6H PRN IVP Nausea & Vomiting 07/09/19 17:52 08/02/19 17:51 Pantoprazole (Protonix) 40 mg DAILY ORAL 07/10/19 09:00 08/03/19 08:59 07/14/19 08:27 Polyethylene Glycol (Miralax) 17 gm DAILYPRN PRN ORAL Constipation 07/09/19 17:54 08/02/19 17:53 Tamsulosin HCl (Flomax) 0.4 mg BEDTIME ORAL 07/09/19 21:00 08/03/19 20:59 07/13/19 22:20 Violet Schmid MD Jul 14, 2019 13:52
[2019-07-14 16:54] VITALS: BP 110/63
--- NOTE | 2019-07-14 17:23 | NUR ---
CASE MANAGEMENT: REVIEW 07/13/19 SI: PACEMAKER MALFUNCTION . DM 97.4 62 17 96/61 98% ROOM AIR IS: ELEQUIS 5MG PO BID ASA 162MG PO QD PROTONIX PO QD FLOMAX PO QHS NOVOLOG SUBQ AC+HR MED SURG STATUS DCP: PATIENT IS FROM HOME CASE MANAGEMENT: REVIEW 07/14/19 SI: PACEMAKER MALFUNCTION . DM 97.5 68 18 128/77 98% ROOM AIR IS: ELEQUIS 5MG PO BID ASA 162MG PO QD PROTONIX PO QD FLOMAX PO QHS NOVOLOG SUBQ AC+HR PROSCAR PO QD LIPITOR PO QHS MED SURG STATUS DCP: PATIENT IS FROM HOME
--- NOTE | 2019-07-14 18:32 | Internal Med Progress Note ---
Subjective Date of Service: Jul 14, 2019 Physician Name Charbel Serrato Attending Physician Rik Montes MD Current Medications Medications (Trade) Dose Ordered Sig/Kristan Route PRN Reason Start Time Stop Time Status Last Admin Dose Admin Acetaminophen (Tylenol) 650 mg Q4H PRN ORAL FEVER and pain 07/09/19 17:50 08/06/19 17:49 07/12/19 02:03 Apixaban (Eliquis) 5 mg BID ORAL 07/09/19 18:00 08/03/19 08:59 07/14/19 17:12 Aspirin (ASA) 162 mg DAILY ORAL 07/10/19 09:00 08/03/19 08:59 07/14/19 08:27 Atorvastatin Calcium (Lipitor) 10 mg BEDTIME ORAL 07/09/19 21:00 08/03/19 20:59 07/13/19 22:20 Brimonidine Tartrate (Alphagan) 1 drop TID BOTH EYES 07/13/19 22:00 08/12/19 21:59 07/14/19 17:12 Dextrose (Dextrose 50%) 25 ml Q30M PRN IV Hypoglycemia 07/09/19 17:15 08/02/19 21:44 Dextrose (Dextrose 50%) 50 ml Q30M PRN IV Hypoglycemia 07/09/19 17:15 08/02/19 21:44 Dorzolamide/ Timolol (Cosopt) 1 drop TWICE A DAY BOTH EYES 07/13/19 22:00 08/12/19 21:59 07/14/19 17:12 Enalaprilat (Vasotec) 2.5 mg Q6H PRN IV sbp more than 160 07/09/19 17:53 08/02/19 17:52 Finasteride (Proscar) 5 mg DAILY ORAL 07/10/19 09:00 08/03/19 08:59 07/14/19 08:27 Insulin Aspart (NovoLOG) BEFORE MEALS AND HS SUBQ 07/09/19 21:00 08/03/19 06:29 07/14/19 16:53 Latanoprost (Xalatan) 1 drop BEDTIME BOTH EYES 07/14/19 22:00 08/13/19 21:59 Nitroglycerin (Ntg) 0.4 mg Q5M PRN SL Prn Chest Pain 1/22/20 17:52 08/02/19 17:51 Ondansetron HCl (Zofran) 4 mg Q6H PRN IVP Nausea & Vomiting 07/09/19 17:52 08/02/19 17:51 Pantoprazole (Protonix) 40 mg DAILY ORAL 07/10/19 09:00 08/03/19 08:59 07/14/19 08:27 Polyethylene Glycol (Miralax) 17 gm DAILYPRN PRN ORAL Constipation 07/09/19 17:54 08/02/19 17:53 Tamsulosin HCl (Flomax) 0.4 mg BEDTIME ORAL 07/09/19 21:00 08/03/19 20:59 07/13/19 22:20 Allergies: Coded Allergies: HYDROCODONE (Verified Adverse Reaction, Intermediate, N/V, 10/08/15) Uncoded Allergies: CONTRAST DYE (Allergy, Unknown, 03/15/19) ROS Limited/Unobtainable: No Constitutional: Reports: no symptoms HEENT: Reports: no symptoms Cardiovascular: Reports: no symptoms Respiratory: Reports: no symptoms Gastrointestinal/Abdominal: Reports: no symptoms Genitourinary: Reports: no symptoms Neurologic/Psychiatric: Reports: no symptoms Subjective 64 YO M admitted with chest pain. Now supraventricular tachycardia. Cover for Int Med-Dr Montes Objective Last Vital Signs Date Time Temp Pulse Resp B/P (MAP) Pulse Ox O2 Delivery O2 Flow Rate FiO2 07/14/19 16:54 98.0 66 20 110/63 (79) 98 07/14/19 08:50 Room Air 07/12/19 08:38 21 Intake and Output 07/13/19 07/14/19 19:00 07:00 # Voids 1 Objective PHYSICAL EXAMINATION: GENERAL: The patient is awake and responsive, in no acute distress. HEAD AND NECK: Pupils are equal and reactive to light. Anicteric. Neck was supple. No JVD. LUNGS: Clear. No wheezing or rales. HEART: S1 and S2. Distant heart sounds. No murmur or gallops. ICD in the left-sided chest wall was noted. ABDOMEN: Soft, nondistended, and nontender. Positive bowel sounds. EXTREMITIES: No cyanosis, clubbing, or edema NEUROLOGIC: Cranial nerves II through XII grossly intact. Motor is 5/5 in all extremities. Gait is intact. RECTAL: Refused and deferred. GENITOURINARY: Refused and deferred. PSYCHIATRIC: Mood and affect are intact. Assessment/Plan Assessment/Plan ASSESSMENT: 1. Supraventricular tachycardia. 2. Pacemaker malfunctioning. 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 5. Hypertension. 6. Lumbar spondylosis. 7. Diabetes type 2. 8. BPH. PLAN: 1. Admit the patient to telemetry. 2. Cardiology=Drs. Askew and Avril-no further cardiac workup indicated 3. The patient's code status is Full Code. 4. DVT prophylaxis is Eliquis-H/O DVT and PE. 5. Await appeal of Discharge by patient to insurance Charbel Serrato MD Jul 14, 2019 18:32
--- NOTE | 2019-07-14 19:40 | NUR ---
HAND-OFF: Report given to KOREY Johnson RN.
--- NOTE | 2019-07-14 19:41 | NUR ---
NURSE NOTES: Received patient awake in bed, reading, AOx4. IV access patent, flushed with normal saline, dressing dry and intact. Bed low and locked, patient ambulatory wearing non slip socks, 2 side rails up.
[2019-07-14 20:00] VITALS: BP 102/63
[2019-07-14] MEDS: Tamsulosin 0.4mg cap ORAL SCH (20:56)
[2019-07-14] MEDS: Latanoprost 0.005% Opth 2.5ml Soln BOTH EYES SCH (22:26)
[2019-07-15] VITALS: BP 108/61
[2019-07-15 04:00] VITALS: BP 104/65
[2019-07-15] MEDS: NovoLOG Insulin Flexpen SUBQ SCH ×4 (05:57→20:22)
--- NOTE | 2019-07-15 07:02 | NUR ---
HAND-OFF: Report given to KOREY Deluca.
--- NOTE | 2019-07-15 07:10 | NUR ---
NURSE NOTES: received patient in bed, sitting on the edge of the bed eating breakfast,patient awake, alert, oriented x4, no sign of distress, HL patent , on fall precaution, both siderails for safety , plan of care was discussed verbalized understanding, 4 P;s in progress call light w/n reach matthias lopes
[2019-07-15 08:00] VITALS: BP 135/85
[2019-07-15] MEDS: Aspirin Baby 81mg ORAL SCH (08:27)
[2019-07-15] MEDS: Cosopt Opth Soln 10 mL Btl BOTH EYES SCH ×2 (08:28→17:08)
[2019-07-15] MEDS: Brimonidine 0.2% Opth Sol BOTH EYES SCH ×3 (08:28→17:08)
[2019-07-15] MEDS: Eliquis 5mg tablet ORAL SCH ×2 (08:28→17:08)
[2019-07-15 12:13] VITALS: BP 119/67
--- NOTE | 2019-07-15 14:37 | NUR ---
CASE MANAGEMENT:REVIEW MEDICARE APPEAL PENDING SI;PACEMAKER MALFUNCTION. SV T[place]YCAR[place]. DM. 97.9 59 20 135/85 98% ON RA LABS - NONE IS;ELIQUIS PO BID FLOMAX PO QD PROSCAR PO QD ASA PO QD MED SURG STATUS DCP;FROM HOME
[2019-07-15 16:17] VITALS: BP 113/63
--- NOTE | 2019-07-15 17:36 | Internal Med Progress Note ---
Subjective Date of Service: Jul 15, 2019 Physician Name Charbel Serrato Attending Physician Rik Montes MD Current Medications Medications (Trade) Dose Ordered Sig/Krisatn Route PRN Reason Start Time Stop Time Status Last Admin Dose Admin Acetaminophen (Tylenol) 650 mg Q4H PRN ORAL FEVER and pain 07/09/19 17:50 08/06/19 17:49 07/15/19 16:16 Apixaban (Eliquis) 5 mg BID ORAL 07/09/19 18:00 08/03/19 08:59 07/15/19 17:08 Aspirin (ASA) 162 mg DAILY ORAL 07/10/19 09:00 08/03/19 08:59 07/15/19 08:27 Atorvastatin Calcium (Lipitor) 10 mg BEDTIME ORAL 07/09/19 21:00 08/03/19 20:59 07/14/19 20:57 Brimonidine Tartrate (Alphagan) 1 drop TID BOTH EYES 07/13/19 22:00 08/12/19 21:59 07/15/19 17:08 Dextrose (Dextrose 50%) 25 ml Q30M PRN IV Hypoglycemia 07/09/19 17:15 08/02/19 21:44 Dextrose (Dextrose 50%) 50 ml Q30M PRN IV Hypoglycemia 07/09/19 17:15 08/02/19 21:44 Dorzolamide/ Timolol (Cosopt) 1 drop TWICE A DAY BOTH EYES 07/13/19 22:00 08/12/19 21:59 07/15/19 17:08 Enalaprilat (Vasotec) 2.5 mg Q6H PRN IV sbp more than 160 07/09/19 17:53 08/02/19 17:52 Finasteride (Proscar) 5 mg DAILY ORAL 07/10/19 09:00 08/03/19 08:59 07/15/19 08:27 Insulin Aspart (NovoLOG) BEFORE MEALS AND HS SUBQ 07/09/19 21:00 08/03/19 06:29 07/14/19 16:53 Latanoprost (Xalatan) 1 drop BEDTIME BOTH EYES 07/14/19 22:00 08/13/19 21:59 07/14/19 22:26 Nitroglycerin (Ntg) 0.4 mg Q5M PRN SL Prn Chest Pain 07/09/19 17:52 08/02/19 17:51 Ondansetron HCl (Zofran) 4 mg Q6H PRN IVP Nausea & Vomiting 07/09/19 17:52 08/02/19 17:51 Pantoprazole (Protonix) 40 mg DAILY ORAL 07/10/19 09:00 08/03/19 08:59 07/15/19 08:28 Polyethylene Glycol (Miralax) 17 gm DAILYPRN PRN ORAL Constipation 07/09/19 17:54 08/02/19 17:53 Tamsulosin HCl (Flomax) 0.4 mg BEDTIME ORAL 07/09/19 21:00 08/03/19 20:59 07/14/19 20:56 Allergies: Coded Allergies: HYDROCODONE (Verified Adverse Reaction, Intermediate, N/V, 10/08/15) Uncoded Allergies: CONTRAST DYE (Allergy, Unknown, 03/15/19) ROS Limited/Unobtainable: No Constitutional: Reports: no symptoms HEENT: Reports: no symptoms Cardiovascular: Reports: no symptoms Respiratory: Reports: no symptoms Gastrointestinal/Abdominal: Reports: no symptoms Genitourinary: Reports: no symptoms Neurologic/Psychiatric: Reports: no symptoms Subjective 64 YO M admitted with chest pain. Now supraventricular tachycardia. Cover for Int Med-Dr Montes Objective Last Vital Signs Date Time Temp Pulse Resp B/P (MAP) Pulse Ox O2 Delivery O2 Flow Rate FiO2 07/15/19 16:17 97.7 63 19 113/63 (80) 100 07/15/19 08:20 Room Air 07/12/19 08:38 21 Intake and Output 07/14/19 07/15/19 19:00 07:00 Intake Total 1600 ml 480 ml Balance 1600 ml 480 ml Intake Oral 1600 ml 480 ml # Voids 6 3 # Bowel Movements 1 Objective PHYSICAL EXAMINATION: GENERAL: The patient is awake and responsive, in no acute distress. HEAD AND NECK: Pupils are equal and reactive to light. Anicteric. Neck was supple. No JVD. LUNGS: Clear. No wheezing or rales. HEART: S1 and S2. Distant heart sounds. No murmur or gallops. ICD in the left-sided chest wall was noted. ABDOMEN: Soft, nondistended, and nontender. Positive bowel sounds. EXTREMITIES: No cyanosis, clubbing, or edema NEUROLOGIC: Cranial nerves II through XII grossly intact. Motor is 5/5 in all extremities. Gait is intact. RECTAL: Refused and deferred. GENITOURINARY: Refused and deferred. PSYCHIATRIC: Mood and affect are intact. Assessment/Plan Assessment/Plan ASSESSMENT: 1. Supraventricular tachycardia. 2. Pacemaker malfunctioning. 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 5. Hypertension. 6. Lumbar spondylosis. 7. Diabetes type 2. 8. BPH. PLAN: 1. Admit the patient to telemetry. 2. Cardiology=Drs. Askew and Avril-no further cardiac workup indicated 3. The patient's code status is Full Code. 4. DVT prophylaxis is Eliquis-H/O DVT and PE. 5. Await appeal of Discharge by patient to Medicare Charbel Serrato MD Jul 15, 2019 17:36
--- NOTE | 2019-07-15 18:57 | NUR ---
HAND-OFF: Report given to [].
--- NOTE | 2019-07-15 18:58 | NUR ---
HAND-OFF: Report given to KOREY Johnson RN
[2019-07-15 20:00] VITALS: BP 106/60
[2019-07-15] MEDS: Latanoprost 0.005% Opth 2.5ml Soln BOTH EYES SCH (20:20)
[2019-07-15] MEDS: Tamsulosin 0.4mg cap ORAL SCH (20:20)
[2019-07-16] VITALS: BP 123/66
[2019-07-16 04:00] VITALS: BP 137/76
[2019-07-16] MEDS: NovoLOG Insulin Flexpen SUBQ SCH ×4 (06:08→21:00)
--- NOTE | 2019-07-16 07:29 | NUR ---
HAND-OFF: Report given to KOREY Mayes.
--- NOTE | 2019-07-16 07:29 | NUR ---
NURSE NOTES: Report received from Alfredo NAIR. Patient is awake and alert x 4 laying supine in bed. Patient currently on room air. 22 cassi IV noted in left forearm. No fluids running at this time. Patient does not have any complaints at this time. Will continue to follow plan of care.
[2019-07-16 08:00] VITALS: BP 117/78
[2019-07-16] MEDS: Eliquis 5mg tablet ORAL SCH ×2 (09:08→18:16)
[2019-07-16] MEDS: Aspirin Baby 81mg ORAL SCH (09:08)
[2019-07-16] MEDS: Cosopt Opth Soln 10 mL Btl BOTH EYES SCH ×2 (09:09→18:16)
[2019-07-16] MEDS: Brimonidine 0.2% Opth Sol BOTH EYES SCH ×3 (09:09→18:16)
--- NOTE | 2019-07-16 11:18 | Internal Med Progress Note ---
Subjective Date of Service: Jul 16, 2019 Physician Name Charbel Serrato Attending Physician Rik Montes MD Current Medications Medications (Trade) Dose Ordered Sig/Kristan Route PRN Reason Start Time Stop Time Status Last Admin Dose Admin Acetaminophen (Tylenol) 650 mg Q4H PRN ORAL FEVER and pain 07/09/19 17:50 08/06/19 17:49 07/15/19 16:16 Apixaban (Eliquis) 5 mg BID ORAL 07/09/19 18:00 08/03/19 08:59 07/16/19 09:08 Aspirin (ASA) 162 mg DAILY ORAL 07/10/19 09:00 08/03/19 08:59 07/16/19 09:08 Atorvastatin Calcium (Lipitor) 10 mg BEDTIME ORAL 07/09/19 21:00 08/03/19 20:59 07/15/19 20:20 Brimonidine Tartrate (Alphagan) 1 drop TID BOTH EYES 07/13/19 22:00 08/12/19 21:59 07/16/19 09:09 Dextrose (Dextrose 50%) 25 ml Q30M PRN IV Hypoglycemia 07/09/19 17:15 08/02/19 21:44 Dextrose (Dextrose 50%) 50 ml Q30M PRN IV Hypoglycemia 07/09/19 17:15 08/02/19 21:44 Dorzolamide/ Timolol (Cosopt) 1 drop TWICE A DAY BOTH EYES 07/13/19 22:00 08/12/19 21:59 07/16/19 09:09 Enalaprilat (Vasotec) 2.5 mg Q6H PRN IV sbp more than 160 07/09/19 17:53 08/02/19 17:52 Finasteride (Proscar) 5 mg DAILY ORAL 07/10/19 09:00 08/03/19 08:59 07/16/19 09:08 Insulin Aspart (NovoLOG) BEFORE MEALS AND HS SUBQ 07/09/19 21:00 08/03/19 06:29 07/15/19 20:22 Latanoprost (Xalatan) 1 drop BEDTIME BOTH EYES 07/14/19 22:00 08/13/19 21:59 07/15/19 20:20 Nitroglycerin (Ntg) 0.4 mg Q5M PRN SL Prn Chest Pain 07/09/19 17:52 08/02/19 17:51 Ondansetron HCl (Zofran) 4 mg Q6H PRN IVP Nausea & Vomiting 07/09/19 17:52 08/02/19 17:51 Pantoprazole (Protonix) 40 mg DAILY ORAL 07/10/19 09:00 08/03/19 08:59 07/16/19 09:08 Polyethylene Glycol (Miralax) 17 gm DAILYPRN PRN ORAL Constipation 07/09/19 17:54 08/02/19 17:53 Tamsulosin HCl (Flomax) 0.4 mg BEDTIME ORAL 07/09/19 21:00 08/03/19 20:59 07/15/19 20:20 Allergies: Coded Allergies: HYDROCODONE (Verified Adverse Reaction, Intermediate, N/V, 10/08/15) Uncoded Allergies: CONTRAST DYE (Allergy, Unknown, 03/15/19) ROS Limited/Unobtainable: No Constitutional: Reports: no symptoms HEENT: Reports: no symptoms Cardiovascular: Reports: no symptoms Respiratory: Reports: no symptoms Gastrointestinal/Abdominal: Reports: no symptoms Genitourinary: Reports: no symptoms Neurologic/Psychiatric: Reports: no symptoms Subjective 64 YO M admitted with chest pain. Now supraventricular tachycardia. Cover for Int Med-Dr Montes Objective Last Vital Signs Date Time Temp Pulse Resp B/P (MAP) Pulse Ox O2 Delivery O2 Flow Rate FiO2 07/16/19 09:00 Room Air 07/16/19 08:00 97.3 80 18 117/78 (91) 99 07/12/19 08:38 21 Intake and Output 07/15/19 07/16/19 19:00 07:00 Intake Total 1400 ml 400 ml Balance 1400 ml 400 ml Intake Oral 1400 ml Other 400 ml # Voids 3 2 Objective PHYSICAL EXAMINATION: GENERAL: The patient is awake and responsive, in no acute distress. HEAD AND NECK: Pupils are equal and reactive to light. Anicteric. Neck was supple. No JVD. LUNGS: Clear. No wheezing or rales. HEART: S1 and S2. Distant heart sounds. No murmur or gallops. ICD in the left-sided chest wall was noted. ABDOMEN: Soft, nondistended, and nontender. Positive bowel sounds. EXTREMITIES: No cyanosis, clubbing, or edema NEUROLOGIC: Cranial nerves II through XII grossly intact. Motor is 5/5 in all extremities. Gait is intact. RECTAL: Refused and deferred. GENITOURINARY: Refused and deferred. PSYCHIATRIC: Mood and affect are intact. Assessment/Plan Assessment/Plan ASSESSMENT: 1. Supraventricular tachycardia. 2. Pacemaker malfunctioning. 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 5. Hypertension. 6. Lumbar spondylosis. 7. Diabetes type 2. 8. BPH. PLAN: 1. Admit the patient to telemetry. 2. Cardiology=Drs. Askew and Avril-no further cardiac workup indicated 3. The patient's code status is Full Code. 4. DVT prophylaxis is Eliquis-H/O DVT and PE. 5. Await appeal of Discharge by patient to Medicare Charbel Serrato MD Jul 16, 2019 11:18
--- NOTE | 2019-07-16 13:09 | Pulmonology Progress Note ---
Assessment/Plan Problems: (1) Pacemaker malfunction (2) Palpitation (3) Ventricular mural thrombus (4) Chronic anticoagulation (5) HTN (hypertension) (6) Hx pulmonary embolism (7) Lumbar spondylosis (8) Diabetes mellitus Assessment/Plan lots of complains about nurses. rate controled symptomatic treatment continue current treatment pt appealed the discharge dc planning Subjective Interval Events: late note 07/15 Allergies: Coded Allergies: HYDROCODONE (Verified Adverse Reaction, Intermediate, N/V, 10/08/15) Uncoded Allergies: CONTRAST DYE (Allergy, Unknown, 03/15/19) Objective Last 24 Hour Vital Signs Date Time Temp Pulse Resp B/P (MAP) Pulse Ox O2 Delivery O2 Flow Rate FiO2 07/16/19 09:00 Room Air 07/16/19 08:00 97.3 80 18 117/78 (91) 99 07/16/19 04:00 96.6 78 16 137/76 (96) 100 07/16/19 00:00 97.3 62 16 123/66 (85) 100 07/15/19 20:11 Room Air 07/15/19 20:00 98.0 63 16 106/60 (75) 100 07/15/19 16:17 97.7 63 19 113/63 (80) 100 Intake and Output 07/15/19 07/16/19 19:00 07:00 Intake Total 1400 ml 400 ml Balance 1400 ml 400 ml Intake Oral 1400 ml Other 400 ml # Voids 3 2 Objective General Appearance: WD/WN HEENT: normocephalic, atraumatic Respiratory/Chest: chest wall non-tender, lungs clear Breasts: no masses Cardiovascular: normal peripheral pulses Abdomen: normal bowel sounds, soft, non tender Genitourinary: normal external genitalia Extremities: no cyanosis Neurologic/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: 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 Lymphatic: no neck adenopathy Current Medications Medications (Trade) Dose Ordered Sig/Kristan Route PRN Reason Start Time Stop Time Status Last Admin Dose Admin Acetaminophen (Tylenol) 650 mg Q4H PRN ORAL FEVER and pain 07/09/19 17:50 08/06/19 17:49 07/15/19 16:16 Apixaban (Eliquis) 5 mg BID ORAL 07/09/19 18:00 08/03/19 08:59 07/16/19 09:08 Aspirin (ASA) 162 mg DAILY ORAL 07/10/19 09:00 08/03/19 08:59 07/16/19 09:08 Atorvastatin Calcium (Lipitor) 10 mg BEDTIME ORAL 07/09/19 21:00 08/03/19 20:59 07/15/19 20:20 Brimonidine Tartrate (Alphagan) 1 drop TID BOTH EYES 07/13/19 22:00 08/12/19 21:59 07/16/19 12:50 Dextrose (Dextrose 50%) 25 ml Q30M PRN IV Hypoglycemia 07/09/19 17:15 08/02/19 21:44 Dextrose (Dextrose 50%) 50 ml Q30M PRN IV Hypoglycemia 07/09/19 17:15 08/02/19 21:44 Dorzolamide/ Timolol (Cosopt) 1 drop TWICE A DAY BOTH EYES 07/13/19 22:00 08/12/19 21:59 07/16/19 09:09 Enalaprilat (Vasotec) 2.5 mg Q6H PRN IV sbp more than 160 07/09/19 17:53 08/02/19 17:52 Finasteride (Proscar) 5 mg DAILY ORAL 07/10/19 09:00 08/03/19 08:59 07/16/19 09:08 Insulin Aspart (NovoLOG) BEFORE MEALS AND HS SUBQ 07/09/19 21:00 08/03/19 06:29 07/15/19 20:22 Latanoprost (Xalatan) 1 drop BEDTIME BOTH EYES 07/14/19 22:00 08/13/19 21:59 07/15/19 20:20 Nitroglycerin (Ntg) 0.4 mg Q5M PRN SL Prn Chest Pain 07/09/19 17:52 08/02/19 17:51 Ondansetron HCl (Zofran) 4 mg Q6H PRN IVP Nausea & Vomiting 07/09/19 17:52 08/02/19 17:51 Pantoprazole (Protonix) 40 mg DAILY ORAL 07/10/19 09:00 08/03/19 08:59 07/16/19 09:08 Polyethylene Glycol (Miralax) 17 gm DAILYPRN PRN ORAL Constipation 07/09/19 17:54 08/02/19 17:53 Tamsulosin HCl (Flomax) 0.4 mg BEDTIME ORAL 07/09/19 21:00 08/03/19 20:59 07/15/19 20:20 Violet Schmid MD Jul 16, 2019 13:09
--- NOTE | 2019-07-16 13:09 | Pulmonology Progress Note ---
Assessment/Plan Problems: (1) Pacemaker malfunction (2) Palpitation (3) Ventricular mural thrombus (4) Chronic anticoagulation (5) HTN (hypertension) (6) Hx pulmonary embolism (7) Lumbar spondylosis (8) Diabetes mellitus Assessment/Plan lots of complains about nurses. asked again for morphine rate controled symptomatic treatment continue current treatment pt appealed the discharge dc planning Subjective ROS Limited/Unobtainable: No Constitutional: Reports: no symptoms HEENT: Repors: no symptoms Respiratory: Reports: no symptoms Allergies: Coded Allergies: HYDROCODONE (Verified Adverse Reaction, Intermediate, N/V, 10/08/15) Uncoded Allergies: CONTRAST DYE (Allergy, Unknown, 03/15/19) Objective Last 24 Hour Vital Signs Date Time Temp Pulse Resp B/P (MAP) Pulse Ox O2 Delivery O2 Flow Rate FiO2 07/16/19 09:00 Room Air 07/16/19 08:00 97.3 80 18 117/78 (91) 99 07/16/19 04:00 96.6 78 16 137/76 (96) 100 07/16/19 00:00 97.3 62 16 123/66 (85) 100 07/15/19 20:11 Room Air 07/15/19 20:00 98.0 63 16 106/60 (75) 100 07/15/19 16:17 97.7 63 19 113/63 (80) 100 Intake and Output 07/15/19 07/16/19 19:00 07:00 Intake Total 1400 ml 400 ml Balance 1400 ml 400 ml Intake Oral 1400 ml Other 400 ml # Voids 3 2 Objective General Appearance: WD/WN HEENT: normocephalic, atraumatic Respiratory/Chest: chest wall non-tender, lungs clear Breasts: no masses Cardiovascular: normal peripheral pulses Abdomen: normal bowel sounds, soft, non tender Genitourinary: normal external genitalia Extremities: no cyanosis Neurologic/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: 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 Lymphatic: no neck adenopathy Current Medications Medications (Trade) Dose Ordered Sig/Kristan Route PRN Reason Start Time Stop Time Status Last Admin Dose Admin Acetaminophen (Tylenol) 650 mg Q4H PRN ORAL FEVER and pain 07/09/19 17:50 08/06/19 17:49 07/15/19 16:16 Apixaban (Eliquis) 5 mg BID ORAL 07/09/19 18:00 08/03/19 08:59 07/16/19 09:08 Aspirin (ASA) 162 mg DAILY ORAL 07/10/19 09:00 08/03/19 08:59 07/16/19 09:08 Atorvastatin Calcium (Lipitor) 10 mg BEDTIME ORAL 07/09/19 21:00 08/03/19 20:59 07/15/19 20:20 Brimonidine Tartrate (Alphagan) 1 drop TID BOTH EYES 07/13/19 22:00 08/12/19 21:59 07/16/19 12:50 Dextrose (Dextrose 50%) 25 ml Q30M PRN IV Hypoglycemia 07/09/19 17:15 08/02/19 21:44 Dextrose (Dextrose 50%) 50 ml Q30M PRN IV Hypoglycemia 07/09/19 17:15 08/02/19 21:44 Dorzolamide/ Timolol (Cosopt) 1 drop TWICE A DAY BOTH EYES 07/13/19 22:00 08/12/19 21:59 07/16/19 09:09 Enalaprilat (Vasotec) 2.5 mg Q6H PRN IV sbp more than 160 07/09/19 17:53 08/02/19 17:52 Finasteride (Proscar) 5 mg DAILY ORAL 07/10/19 09:00 08/03/19 08:59 07/16/19 09:08 Insulin Aspart (NovoLOG) BEFORE MEALS AND HS SUBQ 07/09/19 21:00 08/03/19 06:29 07/15/19 20:22 Latanoprost (Xalatan) 1 drop BEDTIME BOTH EYES 07/14/19 22:00 08/13/19 21:59 07/15/19 20:20 Nitroglycerin (Ntg) 0.4 mg Q5M PRN SL Prn Chest Pain 07/09/19 17:52 08/02/19 17:51 Ondansetron HCl (Zofran) 4 mg Q6H PRN IVP Nausea & Vomiting 07/09/19 17:52 08/02/19 17:51 Pantoprazole (Protonix) 40 mg DAILY ORAL 07/10/19 09:00 08/03/19 08:59 07/16/19 09:08 Polyethylene Glycol (Miralax) 17 gm DAILYPRN PRN ORAL Constipation 07/09/19 17:54 08/02/19 17:53 Tamsulosin HCl (Flomax) 0.4 mg BEDTIME ORAL 07/09/19 21:00 08/03/19 20:59 07/15/19 20:20 Violet Schmid MD Jul 16, 2019 13:09
[2019-07-16 16:00] VITALS: BP 102/52
--- NOTE | 2019-07-16 16:42 | NUR ---
*-* INSURANCE *-* ALL CLINICALS AND REVIEWS HAVE BEEN FAXED TO: [facility] REF# [id number] F: [phone] P: [phone]
--- NOTE | 2019-07-16 17:21 | NUR ---
CASE MANAGEMENT:REVIEW SI;PACEMAKER MALFUNCTION. HTN. DM. 96.6 80 16 102/52 95% ON RA LABS - NONE IS;FLOMAX PO QHS PROTONIX PO QD MEDICARE APPEAL PENDING MED SURG STATUS DCP;FROM HOME
--- NOTE | 2019-07-16 19:28 | NUR ---
HAND-OFF: Report given to Gerson NAIR.
--- NOTE | 2019-07-16 19:30 | NUR ---
NURSE NOTES: Pt. received from KOREY Mayes. Pt. AAOx4, on room air, no complaints of pain, indications of SOB at this time. IV left forearm 22g, asymptomatic, intact and patent; saline locked. Bed is low and locked, side rails x2 up, and call light is in reach. Will continue to monitor.
[2019-07-16 20:00] VITALS: BP 117/62
--- NOTE | 2019-07-16 21:00 | NUR ---
NURSE NOTES: Pt. refused blood glucose check, pt. states "they checked it recently, it was fine earlier. I will let you know." Provided pt. education regarding blood sugar monitoring and insulin medication, explained risk and benefits. Pt. reported understanding and replied "I will let you know." Will continue to monitor.
[2019-07-16] MEDS: Tamsulosin 0.4mg cap ORAL SCH (21:10)
[2019-07-16] MEDS: Latanoprost 0.005% Opth 2.5ml Soln BOTH EYES SCH (21:10)
--- NOTE | 2019-07-17 00:04 | NUR ---
NURSE NOTES: Pt. refused scheduled vital signs assessment.
--- NOTE | 2019-07-17 05:27 | NUR ---
NURSE NOTES: Pt. refusing AM blood glucose check and IV insertion, pt. noncooperative with care. When asked to allow accucheck, pt states "later. It will probably be down when you're gone." Pt. educated on risks and benefits, continues to refuse care.
[2019-07-17] MEDS: NovoLOG Insulin Flexpen SUBQ SCH ×2 (06:30→11:30)
--- NOTE | 2019-07-17 07:14 | NUR ---
HAND-OFF: Report given to KOREY Aparicio.
--- NOTE | 2019-07-17 07:20 | NUR ---
NURSE NOTES: Handoff received from Gerson NAIR. Patient received awake and alert and able to make needs known. Patient requesting Tylenol for pain at this time. Bed in the low and locked position with call light within reach, no acute signs of distress noted. Will continue to monitor patient.
[2019-07-17 08:00] VITALS: BP 122/62
[2019-07-17] MEDS: Cosopt Opth Soln 10 mL Btl BOTH EYES SCH (08:10)
[2019-07-17] MEDS: Brimonidine 0.2% Opth Sol BOTH EYES SCH ×2 (08:11→13:39)
[2019-07-17] MEDS: Eliquis 5mg tablet ORAL SCH (08:13)
[2019-07-17] MEDS: Aspirin Baby 81mg ORAL SCH (08:13)
--- NOTE | 2019-07-17 11:44 | NUR ---
NURSE NOTES: patient refused glucose check. patient asked why his sandwich did not arrive. I spoke to Renee supply specialist who stated she called down and ordered the patient a tuna sandwich. I explained to patient that because it is so close to lunch time, [facility] will most likely bring the sandwich on his lunch tray. Patient became agitated and told me he does not want his accucheck. Patient says that because we are messing him around and making him wait for the sandwich, he will do the same and stated he will ask for the glucose check later.
[2019-07-17] MEDS ORDERED: ELIQUIS5 MG ORAL (13:54)
--- NOTE | 2019-07-17 15:57 | NUR ---
NURSE NOTES:Patient discharged and left stable and ambulating, no acute signs of distress noted. Patient accompanied downstairs and into the taxi. Patient educated on when to seek further medical attention and adverse side effects of Apixiban such as blood in the stools or urine, uncontrollable bleeding etc. Patient left with prescription as he wanted to use his preferred pharmacy. Patient signed the belongings list and discharge paperwork.
--- NOTE | 2019-07-17 16:20 | NUR ---
*-* INSURANCE *-* DISCHARGE INSTRUCTIONS HAVE BEEN FAXED TO: [facility]: LILLIAM REF# [id number] F: [phone] P: [phone]
--- NOTE | 2019-07-22 12:41 | Discharge Summary ---
Discharge Summary Discharge Summary _ DATE OF ADMISSION: 07/03/2019 DATE OF DISCHARGE: 07/17/2019 Dr. Montes DISCHARGED BY: Dr. 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 Shortly after initial evaluation patient was noted to have tachycardia with heart rate of 120-130. Patient subsequently admitted for supraventricular tachycardia CONSULTANTS: acreage reporter Dr. Askew pulmonary Dr. Schmid [facility] COURSE: Patient admitted to telemetry floor. Viscosity Inspector followed. Eliquis continued. Hemoglobin and hematocrit were closely monitored, remained stable. No evidence of bleeding. Patient had recurrent hospitalizations for similar complaints. Patient haa a chronic chest pain , likely of noncardiac origin as per acreage reporter. All troponin were negative. EKG revealed no acute ischemic changes. Patient was ruled out for acute CO. Patient had extensive prior work-up no coronary artery disease on catheterization at [facility]. Pacemaker was interrogated. No adjustment of settings was necessarily. Viscosity Inspector did not favor further ischemia work-up for chest pain, as he has had nuclear stress studies and catheterization in the recent past. Viscosity Inspector recommended to continue anticoagulation with Eliquis due to history of DVT/PE. Tachycardia resolved. Telemetry showed sinus rhythm with heart rate in 60s. Antiplatelet therapy with aspirin and statin continued. GI prophylaxis provided. Flomax and Proscar continued. No evidence of urinary retention. Pain management was addressed as needed. Bowel regimen instituted. Supportive care provided. Blood sugar was managed with sliding scale of insulin. Blood pressure was closely monitored and was stable. Patient clinically stabilized and was ready for discharge FINAL DIAGNOSES: Supraventricular tachycardia - resolved Pacemaker Ventricular mural thrombosis History of DVT and PE Hypertension Lumbar spondylosis Diabetes mellitus type 2 BPH Chronic chest pain, noncardiac DISCHARGE MEDICATIONS: See Medication Reconciliation list. DISCHARGE INSTRUCTIONS: Patient was discharged home. Follow-up with primary care provider in 1 week. I have been assigned to dictate discharge summary for this account. I was not involved in the patient's management. Angelica Prakash NP Jul 22, 2019 12:41
== END 2019-07-17 15:56 | disposition home or self-care (01) | DRG 309 ==
LOC: EMR 22:26 → EDBEDREQ 23:13 → 2E 23:37 → 4E 07-09 17:15
DX: I47.1 Supraventricular tachycardia (principal); I24.0 Acute coronary thrombosis not resulting in myocardial infarction; M47.896 Other spondylosis, lumbar region; N40.0 Benign prostatic hyperplasia without lower urinary tract symptoms; I51.3 Intracardiac thrombosis, not elsewhere classified; Z88.6 Allergy status to analgesic agent; Z91.041 Radiographic dye allergy status; I10 Essential (primary) hypertension; E11.9 Type 2 diabetes mellitus without complications; Z95.810 Presence of automatic (implantable) cardiac defibrillator; Z86.718 Personal history of other venous thrombosis and embolism; Z86.711 Personal history of pulmonary embolism; G89.29 Other chronic pain; R07.89 Other chest pain; Z79.01 Long term (current) use of anticoagulants; E78.5 Hyperlipidemia, unspecified; J44.9 Chronic obstructive pulmonary disease, unspecified; F60.9 Personality disorder, unspecified
CPT/HCPCS: 36415; 71045; 72125; 80048; 80053; 80061; 80307; 81003; 82962; 83735; 84100; 84443; 84484; 85025; 85610; 85730; 86140; 93005; 93306; 94664; 96360; 99285; J1815; J7030

== ENCOUNTER 2019-08-03 17:41 | Emergency (ER) | payer OTHER, MEDICAID ==
[~2019-08-03] VITALS: Ht 172.7 cm; Wt 88.9 kg
[~2019-08-03 17:41] MED LIST changes: +ELIQUIS5 MG ORAL
[2019-08-03 18:40] VITALS: BP 148/75
--- NOTE | 2019-08-03 18:49 | NUR ---
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 lungs cta abd soft nt. griffith well. attempted iv start pt difficult to obtain. sonal simon rn attempting to place iv site. md fleming of pt.
[2019-08-03 19:00] VITALS: BP 128/79
[2019-08-03] MEDS ORDERED: Eliquis 5mg tablet ORAL ONE (19:00)
[2019-08-03] MEDS ORDERED: Nitroglycerin Subl 0.4mg tab SL PRN (19:00)
--- NOTE | 2019-08-03 19:05 | Emergency Room Report ---
History of Present Illness General Chief Complaint: Chest Pain Source: Patient Present Illness HPI Disclaimer: Please note that this report is being documented using [employer] technology. This can lead to erroneous entry secondary to incorrect interpretation by the dictating instrument. HPI: 64-year-old male history of CAD with ventricular mural thrombosis, hypertension, BPH, diabetes, PE/DVT on Eliquis, COPD status post ICD presents for evaluation of chest pain. States he has been intermittent for the past few hours. He returned from [place] by bus earlier today. He is concerned the jostling on the states may have shifted his pacemaker around. He is reports feeling palpitations. He reports a squeezing sensation over the left chest wall and some pressure of the left neck. Similar to prior hospital visits for chest pain. Denies shortness of breath, cough, fever, chills, abdominal pain, nausea, vomiting, diaphoresis. He was recently discharged from this hospital with similar complaints on 07/22. Review of records from that discharge show the patient had a cardiology evaluation termed have non-cardio genic causes of chest pain. He had a cardiac catheterization [facility] 2017 and another at [facility] July 2018 which were unremarkable and did not show ischemic disease. Also reported a recent nuclear stress test that did not show any inducible ischemia. No further ischemic work-up was recommended per cardiology. Pace Maker was interrogated on that visit and did not require adjustment. PMH: CAD status post ICD, PE, BPH, diabetes, COPD, personality disorder PSH: Thoracotomy, pacemaker placement Allergies: Contrast media Social Hx: Denies Allergies: Uncoded Allergies: CONTRAST DYE (Allergy, Unknown, 03/15/19) Nursing Documentation-PMH Hx Cardiac Problems: Yes - /2016 Hx Hypertension: Yes Hx Pacemaker: Yes Hx Asthma: No Hx COPD: No Hx Diabetes: Yes Hx Cancer: No Hx Gastrointestinal Problems: No Hx Dialysis: No Hx Neurological Problems: No Hx Cerebrovascular Accident: No Hx Seizures: No Review of Systems All Other Systems: negative except mentioned in HPI Physical Exam Vital Signs Date Time Temp Pulse Resp B/P (MAP) Pulse Ox O2 Delivery O2 Flow Rate FiO2 08/03/19 18:03 98.2 98 17 132/80 (97) 95 Room Air General: Awake and alert, no acute distress HEENT: NC/AT. EOMI. Neck: Supple, trachea midline Chest Wall: Diffusely tender to palpation. Pacemaker palpable in left upper chest without overlying skin changes or dehiscence Cardiovascular: RRR. S1 and S2 normal. No murmur appreciated Resp: Normal work of breathing. No cough, wheezing or crackles appreciated Abdomen: Abdomen is soft, nondistended. Nontender Skin: Midline surgical scars clean dry and intact. No abrasions, laceration or rash over the exposed skin MSK: Normal tone and bulk. Moving all extremities. No obvious deformity. Neuro: Awake and alert. Mentating appropriately. Medical Decision Making Diagnostic Impression: Primary Impression: Chest pain ER Course 64-year-old male with extensive cardiac history and recent admission for chest pain presents for evaluation of chest pressure. Symptoms have been intermittent throughout the day. He states he is currently at 8/10 discomfort. Recent cardiology evaluation did not require any further ischemic testing as he has had 2 recent catheterizations within the past 2 years which were reportedly unremarkable as well as a nuclear stress test. Please see previous cardiology notes for full details. Will repeat EKG, chest x-ray and cardiac enzyme panel. If unremarkable the patient can be discharged with outpatient follow-up. We will give his nighttime dose of Eliquis and nitroglycerin. He states he ran out of nitroglycerin. Laboratory Tests Test 08/03/19 19:50 White Blood Count 8.6 K/UL (4.8-10.8) Red Blood Count 4.58 M/UL (4.70-6.10) L Hemoglobin 12.6 G/DL (14.2-18.0) L Hematocrit 38.3 % (42.0-52.0) L Mean Corpuscular Volume 84 FL (80-99) Mean Corpuscular Hemoglobin 27.5 PG (27.0-31.0) Mean Corpuscular Hemoglobin Concent 32.9 G/DL (32.0-36.0) Red Cell Distribution Width 15.3 % (11.6-14.8) H Platelet Count 202 K/UL (150-450) Mean Platelet Volume 8.9 FL (6.5-10.1) Neutrophils (%) (Auto) % (45.0-75.0) Lymphocytes (%) (Auto) % (20.0-45.0) Monocytes (%) (Auto) % (1.0-10.0) Eosinophils (%) (Auto) % (0.0-3.0) Basophils (%) (Auto) % (0.0-2.0) Differential Total Cells Counted 100 Neutrophils % (Manual) 92 % (45-75) H Lymphocytes % (Manual) 6 % (20-45) L Monocytes % (Manual) 1 % (1-10) Eosinophils % (Manual) 1 % (0-3) Basophils % (Manual) 0 % (0-2) Band Neutrophils 0 % (0-8) Platelet Estimate Adequate Platelet Morphology Normal Polychromasia 1+ Anisocytosis 1+ D-Dimer 0.33 mg/L FEU (0.00-0.49) Sodium Level 140 MMOL/L (136-145) Potassium Level 4.4 MMOL/L (3.5-5.1) Chloride Level 106 MMOL/L (98-107) Carbon Dioxide Level 20 MMOL/L (21-32) L Anion Gap 14 mmol/L (5-15) Blood Urea Nitrogen 16 mg/dL (7-18) Creatinine 1.5 MG/DL (0.55-1.30) H Estimate Glomerular Filtration Rate 57.4 mL/min (>60) Glucose Level 335 MG/DL (74-106) H Calcium Level 9.3 MG/DL (8.5-10.1) Total Bilirubin 0.4 MG/DL (0.2-1.0) Aspartate Amino Transferase (AST) 14 U/L (15-37) L Alanine Aminotransferase (ALT) 22 U/L (12-78) Alkaline Phosphatase 75 U/L (46-116) Troponin I 0.010 ng/mL (0.000-0.056) Total Protein 7.4 G/DL (6.4-8.2) Albumin 3.5 G/DL (3.4-5.0) Globulin 3.9 g/dL Albumin/Globulin Ratio 0.9 (1.0-2.7) L EKG Diagnostic Results EKG Time: 18:12 Rate: normal Rhythm: NSR ST Segments: no acute changes Other Impression Sinus rhythm, normal axis, normal intervals, no acute ST segment changes. Rhythm Strip Diag. Results Rhythm Strip Time: 18:12 EP Interpretation: yes Rate: 90s Rhythm: NSR, no PVC's, no ectopy Chest X-Ray Diagnostic Results Chest X-Ray Diagnostic Results : Chest X-Ray Ordered: Yes # of Views/Limited/Complete: 1 View Indication: Chest Pain EP Interpretation: Yes Interpretation: no consolidation, no effusion, no pneumothorax, other - Dual -chamber pacemaker present in left upper chest wall. Leads appear in place Impression: No acute disease Electronically Signed by: Electronically signed by Dr. John Fierro Reevaluation Time: 23:00 Last Vital Signs Date Time Temp Pulse Resp B/P (MAP) Pulse Ox O2 Delivery O2 Flow Rate FiO2 08/03/19 18:03 98.2 98 17 132/80 (97) 95 Room Air Reevaluation Impression Labs including cardiac enzymes and troponin have returned within normal limits. Chest x-ray shows pacemaker and leads in appropriate position. Patient's EKG shows some Q waves in the inferior leads but no acute ST segment changes. When compared to prior EKGs of 07/03/2019 and 06/05/2019 the overall morphology is unchanged. Given the patient's previous extensive cardiac work-up and recent hospitalization for similar chest pain I do not believe he is having acute cardiac chest pain at this time. Again, cardiology did not recommend any further ischemic work-up on his last admission. He is likely experiencing chest wall pain from his multiple surgeries. I discussed these findings with the patient and he became very angry. He was accusing prior admitting physicians and consultants of manipulating and falsifying paperwork. Patient cursed out nursing staff and myself and refused to sign his discharge paperwork. IV was removed. Disposition: HOME, SELF-CARE Condition: Stable John Fierro MD Aug 03, 2019 19:04
--- NOTE | 2019-08-03 19:16 | NUR ---
ED Nurse Note: md aware unable to obtain labs. endorsed meds due and labs due to k. carolyn rn and charge loader.
--- NOTE | 2019-08-03 20:06 | NUR ---
ED Nurse Note: pt CO chest pain on left side of chest, described as "someone sitting on my chest". Pt reports pain /. Pt VS 120/71, HR 86. Nitro SL administered.
[2019-08-03 20:07] LABS: HEMATOCRIT 38.3 % (42.0-52.0); HEMOGLOBIN 12.6 G/DL (14.2-18.0); MEAN CORPUSCULAR VOLUME 84 FL (80-99); PLATELET COUNT 202 K/UL (150-450); RED BLOOD COUNT 4.58 M/UL (4.70-6.10); RED CELL DISTRIBUTION WIDTH 15.3 % (11.6-14.8); WHITE BLOOD COUNT 8.6 K/UL (4.8-10.8)
[2019-08-03 20:35] LABS: ANION GAP 14 mmol/L (5-15); BLOOD UREA NITROGEN 16 mg/dL (7-18); CALCIUM 9.3 MG/DL (8.5-10.1); CARBON DIOXIDE 20 MMOL/L (21-32); CHLORIDE 106 MMOL/L (98-107); CREATININE 1.5 MG/DL (0.55-1.30); POTASSIUM 4.4 MMOL/L (3.5-5.1); SODIUM 140 MMOL/L (136-145)
[2019-08-03 20:40] LABS: ALANINE AMINOTRANSFERASE 22 U/L (12-78); ALBUMIN 3.5 G/DL (3.4-5.0); ALBUMIN/GLOBULIN RATIO 0.9 (1.0-2.7); ALKALINE PHOSPHATASE 75 U/L (46-116); ASPARTATE AMINO TRANSFERASE 14 U/L (15-37); BILIRUBIN,TOTAL 0.4 MG/DL (0.2-1.0)
[2019-08-03 21:00] VITALS: BP 126/80
[2019-08-03] MEDS ORDERED: Morphine Sulfate 4mg/ml Inj (IV USE ONLY) ONE (21:49)
--- NOTE | 2019-08-03 21:57 | NUR ---
ED Nurse Note: Pt resting in bed with eyes closed intermitently, pt c/o chest pain, 3rd nitro dose given, ERMD aware
[2019-08-03] MEDS ORDERED: Morphine Sulfate 4mg/ml Inj (IV USE ONLY) IVP ONE (22:00)
[2019-08-03 23:10] VITALS: BP 126/80
--- NOTE | 2019-08-03 23:10 | NUR ---
ER DISCHARGE NOTE: Patient is cleared to be discharged per ERMD, pt is aox4, on room air, with stable vital signs. pt was given dc and prescription instructions, pt was able to verbalize understanding, pt id band and iv site removed without complications. pt is able to ambulate with steady gait. pt took all belongings.
--- NOTE | 2019-08-04 09:26 | Diagnostic Imaging Report ---
Indication: Chest Technique: One view of the chest Comparison: 07/03/2019 Findings: There is a left chest bifocal pacemaker. The heart size is normal. Lungs and pleural spaces are clear. There is persistent elevation of the left hemidiaphragm There are median sternotomy sutures. No significant interim change Impression: No acute process
== END 2019-08-03 23:10 | disposition home or self-care (01) ==
LOC: EMR 23:10
DX: R07.9 Chest pain, unspecified (principal); I11.9 Hypertensive heart disease without heart failure; I25.2 Old myocardial infarction; Z91.041 Radiographic dye allergy status; E11.9 Type 2 diabetes mellitus without complications; Z95.0 Presence of cardiac pacemaker; Z86.718 Personal history of other venous thrombosis and embolism; Z79.01 Long term (current) use of anticoagulants; Z86.711 Personal history of pulmonary embolism; J44.9 Chronic obstructive pulmonary disease, unspecified
CPT/HCPCS: 36415; 71045; 80053; 84484; 85007; 85025; 85379; 93005; 96374; 99284; J2270

== ENCOUNTER 2019-08-27 11:34 | Inpatient (IN) | payer MEDICARE, MEDICAID ==
[~2019-08-27] VITALS: Ht 172.7 cm; Wt 88.9 kg
[2019-08-27 11:45] VITALS: BP 129/71
--- NOTE | 2019-08-27 11:54 | Emergency Room Report ---
History of Present Illness General Chief Complaint: Chest Pain Source: Patient Present Illness HPI 64-year-old male history of CAD with ventricular mural thrombosis, hypertension , BPH, diabetes, PE/DVT on Eliquis, COPD status post ICD presents for evaluation of chest pain, patient reports intermittent chest pressure x2 hours, start time was approximately 10 AM, patient was having a conversation when he was relaxing he felt a little better severity is mild/moderate no radiation of pain patient presents for evaluation no nausea no vomiting no diaphoresis he does endorse some shortness of breath. Per previous note " He was recently discharged from this hospital with similar complaints on 07/22. Review of records from that discharge show the patient had a cardiology evaluation termed have non-cardio genic causes of chest pain. He had a cardiac catheterization [facility] 2017 and another at [facility] July 2018 which were unremarkable and did not show ischemic disease. Also reported a recent nuclear stress test that did not show any inducible ischemia. No further ischemic work-up was recommended per cardiology. Pace Maker was interrogated on that visit and did not require adjustment" Allergies: Uncoded Allergies: CONTRAST DYE (Allergy, Unknown, 03/15/19) Patient History Past Medical History: see triage record Reviewed Nursing Documentation: PMH: Agreed; PSxH: Agreed Nursing Documentation-PMH Hx Cardiac Problems: Yes - /2016 Hx Hypertension: Yes Hx Pacemaker: Yes Hx Asthma: No Hx COPD: No Hx Diabetes: Yes Hx Cancer: No Hx Gastrointestinal Problems: No Hx Dialysis: No Hx Neurological Problems: No Hx Cerebrovascular Accident: No Hx Seizures: No Review of Systems All Other Systems: negative except mentioned in HPI Physical Exam Vital Signs Date Time Temp Pulse Resp B/P (MAP) Pulse Ox O2 Delivery O2 Flow Rate FiO2 08/27/19 11:39 98.2 73 20 129/71 (90) 99 Sp02 EP Interpretation: reviewed, normal General Appearance: well appearing, no apparent distress, alert Head: normocephalic, atraumatic Eyes: bilateral eye PERRL, bilateral eye EOMI ENT: uvula midline, moist mucus membranes Neck: supple, thyroid normal, supple/symm/no masses Respiratory: lungs clear, no respiratory distress, no retraction, no accessory muscle use Cardiovascular #1: normal peripheral pulses, regular rate, rhythm, no edema, no gallop, no murmur Gastrointestinal: non tender, soft, no guarding, no rebound Musculoskeletal: normal inspection Neurologic: alert, oriented x3 Psychiatric: mood/affect normal Skin: no rash, warm/dry Medical Decision Making Diagnostic Impression: Primary Impression: Chest pain Qualified Codes: R07.9 - Chest pain, unspecified ER Course 64-year-old male presents with chest pain, differential diagnosis includes ACS, pneumonia, pneumothorax Patient given aspirin troponin negative, EKG negative will admit patient for serial troponins, patient admitted to Dr. Kelly Laboratory Tests Test 08/27/19 12:18 08/27/19 12:52 Sodium Level 139 MMOL/L (136-145) Potassium Level 4.4 MMOL/L (3.5-5.1) Chloride Level 107 MMOL/L (98-107) Carbon Dioxide Level 22 MMOL/L (21-32) Anion Gap 10 mmol/L (5-15) Blood Urea Nitrogen 10 mg/dL (7-18) Creatinine 1.0 MG/DL (0.55-1.30) Estimate Glomerular Filtration Rate > 60 mL/min (>60) Glucose Level 136 MG/DL (74-106) H Calcium Level 8.2 MG/DL (8.5-10.1) L Total Bilirubin 0.4 MG/DL (0.2-1.0) Aspartate Amino Transferase (AST) 23 U/L (15-37) Alanine Aminotransferase (ALT) 24 U/L (12-78) Alkaline Phosphatase 80 U/L (46-116) Troponin I 0.002 ng/mL (0.000-0.056) Pro-B-Type Natriuretic Peptide Pending Total Protein 6.9 G/DL (6.4-8.2) Albumin 3.2 G/DL (3.4-5.0) L Globulin 3.7 g/dL Albumin/Globulin Ratio 0.9 (1.0-2.7) L White Blood Count 6.1 K/UL (4.8-10.8) Red Blood Count 4.26 M/UL (4.70-6.10) L Hemoglobin 11.5 G/DL (14.2-18.0) L Hematocrit 35.7 % (42.0-52.0) L Mean Corpuscular Volume 84 FL (80-99) Mean Corpuscular Hemoglobin 27.1 PG (27.0-31.0) Mean Corpuscular Hemoglobin Concent 32.2 G/DL (32.0-36.0) Red Cell Distribution Width 15.2 % (11.6-14.8) H Platelet Count 155 K/UL (150-450) Mean Platelet Volume 10.4 FL (6.5-10.1) H Neutrophils (%) (Auto) 63.8 % (45.0-75.0) Lymphocytes (%) (Auto) 21.7 % (20.0-45.0) Monocytes (%) (Auto) 11.0 % (1.0-10.0) H Eosinophils (%) (Auto) 2.7 % (0.0-3.0) Basophils (%) (Auto) 0.8 % (0.0-2.0) Prothrombin Time 10.3 SEC (9.30-11.50) Prothrombin Time INR 1.0 (0.9-1.1) Activated Partial Thromboplast Time 30 SEC (23-33) EKG Diagnostic Results EKG Time: 11:47 EP Interpretation: NSR, rate 72, QTc 416, no acute ST elevations, normal axis Rhythm Strip Diag. Results Rhythm Strip Time: 11:53 EP Interpretation: yes Rate: 71 Rhythm: NSR, no PVC's, no ectopy Chest X-Ray Diagnostic Results Chest X-Ray Diagnostic Results : Chest X-Ray Ordered: Yes # of Views/Limited/Complete: 1 View Indication: Chest Pain EP Interpretation: Yes Interpretation: no consolidation, no effusion, no pneumothorax, no acute cardiopulmonary disease Impression: No acute disease Electronically Signed by: Yeyo Chávez MD Last Vital Signs Date Time Temp Pulse Resp B/P (MAP) Pulse Ox O2 Delivery O2 Flow Rate FiO2 08/27/19 11:39 98.2 73 20 129/71 (90) 99 Disposition: ADMITTED INPATIENT Condition: Stable Yeyo Chávez MD Aug 27, 2019 11:54
[2019-08-27 12:50] LABS: ANION GAP 10 mmol/L (5-15); BLOOD UREA NITROGEN 10 mg/dL (7-18); CALCIUM 8.2 MG/DL (8.5-10.1); CARBON DIOXIDE 22 MMOL/L (21-32); CHLORIDE 107 MMOL/L (98-107); POTASSIUM 4.4 MMOL/L (3.5-5.1); SODIUM 139 MMOL/L (136-145)
[2019-08-27 12:55] LABS: ALANINE AMINOTRANSFERASE 24 U/L (12-78); ALBUMIN 3.2 G/DL (3.4-5.0); ALBUMIN/GLOBULIN RATIO 0.9 (1.0-2.7); ALKALINE PHOSPHATASE 80 U/L (46-116); ASPARTATE AMINO TRANSFERASE 23 U/L (15-37); BILIRUBIN,TOTAL 0.4 MG/DL (0.2-1.0)
[2019-08-27 13:12] LABS: BASOPHILS % (AUTO) 0.8 % (0.0-2.0); EOSINOPHILS % (AUTO) 2.7 % (0.0-3.0); HEMATOCRIT 35.7 % (42.0-52.0); HEMOGLOBIN 11.5 G/DL (14.2-18.0); LYMPHOCYTES % (AUTO) 21.7 % (20.0-45.0); MEAN CORPUSCULAR VOLUME 84 FL (80-99); NEUTROPHILS % (AUTO) 63.8 % (45.0-75.0); PLATELET COUNT 155 K/UL (150-450); RED BLOOD COUNT 4.26 M/UL (4.70-6.10); RED CELL DISTRIBUTION WIDTH 15.2 % (11.6-14.8); WHITE BLOOD COUNT 6.1 K/UL (4.8-10.8)
[2019-08-27] MEDS ORDERED: Morphine Sulfate 4mg/ml Inj (IV USE ONLY) IVP ONE (13:30)
[2019-08-27 14:00] VITALS: BP 131/74
--- NOTE | 2019-08-27 14:40 | Diagnostic Imaging Report ---
. Indication: Chest pain Technique: One view of the chest Comparison: 08/03/2019 Findings: Left chest pacemaker, median sternotomy sutures again demonstrated. Lungs pleural spaces are clear. Heart size is normal. Findings are unchanged Impression: No acute process.
[2019-08-27 16:00] VITALS: BP 127/75
[2019-08-27] MEDS: NovoLOG Insulin Flexpen SUBQ SCH ×2 (16:30→20:59)
--- NOTE | 2019-08-27 17:00 | History and Physical Report ---
DATE OF ADMISSION: 08/27/2019 TIME SEEN: Approximate time is 2 p.m. PLATE AND FRAME FILTER OPERATOR: Gato Zayas M.D. CHIEF COMPLAINT: Chest pain, ACS. BRIEF HISTORY: This is a 64-year-old male, who lives at home, presented with substernal chest pain, pressure-like this morning, radiating to the arm, slight dizziness, slight short of breath, but no loss of consciousness. It was intermittent. The patient came to [place], diagnosed with ACS and is being admitted to telemetry for further care. Currently, received morphine. Chest pain has somewhat improved, no complaint. REVIEW OF SYSTEMS: Slight chest pain. Slight short of breath. No nausea, vomiting, or diarrhea. PAST MEDICAL HISTORY: Degenerative disc disease, DVT, COPD, acute coronary syndrome, palpitations, hypertension, pulmonary embolus, diabetes, and glaucoma. PAST SURGICAL HISTORY: Pacer and eye surgery. ALLERGIES: Contrast dye. MEDICATIONS: Zofran, morphine, and aspirin. SOCIAL HISTORY: No smoking. No alcohol. No intravenous drug abuse. FAMILY HISTORY: Noncontributory. PHYSICAL EXAMINATION: GENERAL: Calm in bed, oriented x3, in no acute distress. VITAL SIGNS: Temperature is 98 degrees, pulse 68, respirations 20, and blood pressure 129/71. CARDIOVASCULAR: No murmur. LUNGS: Distant and clear. ABDOMEN: Bowel sounds positive. Nontender. Nondistended. EXTREMITIES: No cyanosis, clubbing, or edema. NEUROLOGIC: The patient moves all extremities, slightly weak. LABORATORY AND DIAGNOSTIC DATA: Labs at this time show hemoglobin and hematocrit 11.5/35, otherwise CBC is normal. BMP shows glucose 136. Calcium 8.2. Troponin 0.002. Albumin 3.2, otherwise normal. INR is 1.0. PTT is 30. ASSESSMENT: 1. Chest pain. 2. ACS. 3. Dizziness 4. Anemia 5. Malnutrition. 6. History of diabetes. 7. Glaucoma. 8. Hypertension. 9. DVT/PE. 10. Degenerative disc disease. 11. Chronic obstructive pulmonary disease. PLAN: 1. O2 and pulmonary treatment as needed. 2. Blood pressure and pain control. 3. Blood sugar control. 4. Dietary followup. 5. Troponin q.8 h. x3. 6. EKG in a.m. 7. Cardiology evaluation with Dr. Zayas. 8. CBC and BMP in the morning. 9. We will continue to follow this patient. Kevin Kelly D.O. DR: AMILCAR JOB#: [id number] CC:
[2019-08-27] MEDS: metFORMIN 500mg tab ORAL SCH (18:14)
[2019-08-27] MEDS: Eliquis 5mg tablet ORAL SCH (18:15)
[2019-08-27] MEDS: Brimonidine 0.2% Opth Sol BOTH EYES SCH (18:23)
[2019-08-27] MEDS: Cosopt Opth Soln 10 mL Btl BOTH EYES SCH (18:23)
[2019-08-27] MEDS: Morphine Sulfate 2mg/ml Inj(IV/IM USE ONLY) IVP PRN (18:26)
[2019-08-27 20:00] VITALS: BP 114/70
[2019-08-27] MEDS: Tamsulosin 0.4mg cap ORAL SCH (20:58)
[2019-08-28] MEDS: Morphine Sulfate 2mg/ml Inj(IV/IM USE ONLY) IVP PRN ×4 (05:26→20:24)
[2019-08-28 05:40] LABS: ANION GAP 9 mmol/L (5-15); BASOPHILS % (AUTO) 0.8 % (0.0-2.0); BLOOD UREA NITROGEN 12 mg/dL (7-18); CALCIUM 8.3 MG/DL (8.5-10.1); CARBON DIOXIDE 24 MMOL/L (21-32); CHLORIDE 108 MMOL/L (98-107); EOSINOPHILS % (AUTO) 4.3 % (0.0-3.0); HEMATOCRIT 33.5 % (42.0-52.0); LYMPHOCYTES % (AUTO) 24.1 % (20.0-45.0); MEAN CORPUSCULAR VOLUME 84 FL (80-99); MONOCYTES % (AUTO) 11.3 % (1.0-10.0); NEUTROPHILS % (AUTO) 59.6 % (45.0-75.0); PLATELET COUNT 161 K/UL (150-450); POTASSIUM 3.6 MMOL/L (3.5-5.1); RED CELL DISTRIBUTION WIDTH 15.1 % (11.6-14.8); SODIUM 141 MMOL/L (136-145); WHITE BLOOD COUNT 5.5 K/UL (4.8-10.8)
[2019-08-28] MEDS: NovoLOG Insulin Flexpen SUBQ SCH ×4 (06:30→20:34)
[2019-08-28 08:00] VITALS: BP 120/72
[2019-08-28] MEDS: Brimonidine 0.2% Opth Sol BOTH EYES SCH ×3 (10:19→17:38)
[2019-08-28] MEDS: Cosopt Opth Soln 10 mL Btl BOTH EYES SCH ×2 (10:19→17:38)
[2019-08-28] MEDS: Atorvastatin 80mg tab ORAL SCH (10:20)
[2019-08-28] MEDS: metFORMIN 500mg tab ORAL SCH ×2 (10:21→17:37)
[2019-08-28] MEDS: Eliquis 5mg tablet ORAL SCH ×2 (10:21→17:37)
[2019-08-28 12:00] VITALS: BP 118/70
--- NOTE | 2019-08-28 13:39 | General Progress Note ---
Assessment/Plan Problem List: (1) Pacemaker malfunction ICD Codes: T82.111A - Breakdown (mechanical) of cardiac pulse generator ( battery), initial encounter SNOMED: 316757078 (2) DVT (deep venous thrombosis) ICD Codes: I82.409 - DVT (deep venous thrombosis) SNOMED: 070971169 (3) DDD (degenerative disc disease), lumbar ICD Codes: M51.36 - DDD (degenerative disc disease), lumbar SNOMED: 03008414 (4) COPD (chronic obstructive pulmonary disease) ICD Codes: J44.9 - COPD (chronic obstructive pulmonary disease) SNOMED: 46654801 (5) HTN (hypertension) ICD Codes: I10 - Essential (primary) hypertension SNOMED: 70201386 (6) Hx pulmonary embolism ICD Codes: Z86.711 - Hx pulmonary embolism SNOMED: 443320092 (7) Diabetes mellitus ICD Codes: E11.9 - Type 2 diabetes mellitus without complications SNOMED: 64617446 (8) Chest pain ICD Codes: R07.9 - Chest pain, unspecified SNOMED: 65140097 Qualifiers: Qualified Codes: R07.9 - Chest pain, unspecified Status: stable, progressing Assessment/Plan: pt diet cardio f/u [pain control cbc bmp am dc plan Subjective Constitutional: Reports: weakness Allergies: Uncoded Allergies: CONTRAST DYE (Allergy, Unknown, 03/15/19) All Systems: reviewed and negative except above Subjective sleepy in bed Objective Last 24 Hour Vital Signs Date Time Temp Pulse Resp B/P (MAP) Pulse Ox O2 Delivery O2 Flow Rate FiO2 08/28/19 11:43 96.7 08/28/19 08:00 96.7 62 16 120/72 (88) 98 08/28/19 08:00 62 08/28/19 04:00 61 08/28/19 00:00 60 08/27/19 21:00 Room Air 08/27/19 20:00 62 08/27/19 20:00 97.7 61 18 114/70 (85) 95 08/27/19 16:00 97.3 63 20 127/75 (92) 98 08/27/19 16:00 66 08/27/19 15:27 Room Air 08/27/19 15:10 98.0 69 20 124/76 99 08/27/19 14:00 72 20 131/74 99 Intake and Output 08/27/19 08/28/19 19:00 07:00 Intake Total 480 ml Balance 480 ml Intake Oral 480 ml # Voids 1 2 # Bowel Movements 1 Laboratory Tests 08/28/19 04:37: White Blood Count 5.5, Red Blood Count 4.00L, Hemoglobin 11.0L, Hematocrit 33.5L , Mean Corpuscular Volume 84, Mean Corpuscular Hemoglobin 27.6, Mean Corpuscular Hemoglobin Concent 33.0, Red Cell Distribution Width 15.1H, Platelet Count 161, Mean Platelet Volume 9.7, Neutrophils (%) (Auto) 59.6, Lymphocytes (%) (Auto) 24.1, Monocytes (%) (Auto) 11.3H, Eosinophils (%) (Auto) 4.3H, Basophils (%) (Auto) 0.8, Sodium Level 141, Potassium Level 3.6, Chloride Level 108H, Carbon Dioxide Level 24, Anion Gap 9, Blood Urea Nitrogen 12, Creatinine 1.0, Estimat Glomerular Filtration Rate > 60, Glucose Level 140H, Calcium Level 8.3L, Troponin I 0.007 08/28/19 12:30: Troponin I 0.000 Height (Feet): 5 Height (Inches): 8.00 Weight (Pounds): 196 General Appearance: lethargic EENT: normal ENT inspection Neck: normal alignment Cardiovascular: normal peripheral pulses, normal rate, regular rhythm Respiratory/Chest: chest wall non-tender, lungs clear, normal breath sounds Abdomen: normal bowel sounds, non tender, soft Extremities: normal inspection Edema: no edema noted Arm (L), no edema noted Arm (R), no edema noted Leg (L), no edema noted Leg (R), no edema noted Pedal (L), no edema noted Pedal (R), no edema noted Generalized Neurologic: motor weakness Skin: normal pigmentation, warm/dry Kevin Kelly DO Aug 28, 2019 13:39
--- NOTE | 2019-08-28 15:23 | Cardiac Electrophysiology PN ---
Subjective Subjective [id number] Objective Last 24 Hour Vital Signs Date Time Temp Pulse Resp B/P (MAP) Pulse Ox O2 Delivery O2 Flow Rate FiO2 08/28/19 12:00 60 08/28/19 11:43 96.7 08/28/19 09:00 Room Air 08/28/19 08:00 96.7 62 16 120/72 (88) 98 08/28/19 08:00 62 08/28/19 04:00 61 08/28/19 00:00 60 08/27/19 21:00 Room Air 08/27/19 20:00 62 08/27/19 20:00 97.7 61 18 114/70 (85) 95 08/27/19 16:00 97.3 63 20 127/75 (92) 98 08/27/19 16:00 66 08/27/19 15:27 Room Air Intake and Output 08/27/19 08/28/19 19:00 07:00 Intake Total 480 ml Balance 480 ml Intake Oral 480 ml # Voids 1 2 # Bowel Movements 1 Laboratory Tests Test 08/28/19 04:37 08/28/19 12:30 White Blood Count 5.5 K/UL (4.8-10.8) Red Blood Count 4.00 M/UL (4.70-6.10) L Hemoglobin 11.0 G/DL (14.2-18.0) L Hematocrit 33.5 % (42.0-52.0) L Mean Corpuscular Volume 84 FL (80-99) Mean Corpuscular Hemoglobin 27.6 PG (27.0-31.0) Mean Corpuscular Hemoglobin Concent 33.0 G/DL (32.0-36.0) Red Cell Distribution Width 15.1 % (11.6-14.8) H Platelet Count 161 K/UL (150-450) Mean Platelet Volume 9.7 FL (6.5-10.1) Neutrophils (%) (Auto) 59.6 % (45.0-75.0) Lymphocytes (%) (Auto) 24.1 % (20.0-45.0) Monocytes (%) (Auto) 11.3 % (1.0-10.0) H Eosinophils (%) (Auto) 4.3 % (0.0-3.0) H Basophils (%) (Auto) 0.8 % (0.0-2.0) Sodium Level 141 MMOL/L (136-145) Potassium Level 3.6 MMOL/L (3.5-5.1) Chloride Level 108 MMOL/L (98-107) H Carbon Dioxide Level 24 MMOL/L (21-32) Anion Gap 9 mmol/L (5-15) Blood Urea Nitrogen 12 mg/dL (7-18) Creatinine 1.0 MG/DL (0.55-1.30) Estimat Glomerular Filtration Rate > 60 mL/min (>60) Glucose Level 140 MG/DL (74-106) H Calcium Level 8.3 MG/DL (8.5-10.1) L Troponin I 0.007 ng/mL (0.000-0.056) 0.000 ng/mL (0.000-0.056) Gato Zayas MD Aug 28, 2019 15:23
[2019-08-28] MEDS ORDERED: Lexiscan 0.4mg/5ml syringe IV PRN (15:25)
[2019-08-28 16:00] VITALS: BP 111/70
[2019-08-28 20:00] VITALS: BP 111/72
[2019-08-28] MEDS: Tamsulosin 0.4mg cap ORAL SCH (20:24)
--- NOTE | 2019-08-28 21:15 | Consultation ---
DATE OF CONSULTATION: 08/28/2019 CARDIOLOGY CONSULTATION CONSULTING PHYSICIAN: Gato Zayas M.D. REFERRING PHYSICIAN: Kevin Kelly D.O. REASON FOR CONSULTATION: Evaluation of pacemaker and chest pain. HISTORY OF PRESENT ILLNESS: The patient is a 64-year-old gentleman with history of hypertension, history of DVT and pulmonary embolism, status post open pulmonary embolectomy many years ago as well as sick sinus syndrome, had undergone [employer] [facility] permanent pacemaker implantation in the past. The patient has numerous hospitalizations with chest pains at multiple different hospitals. The patient presented to the hospital again with complaining of pressure-like chest pain, radiating to the arm and dizziness and shortness of breath. The patient presented to the emergency room at [facility] and was ruled out for myocardial infarction. Cardiology consultation was obtained for further evaluation and management. REVIEW OF SYSTEMS: Negative other than what was mentioned in history of present illness. PAST MEDICAL HISTORY: As mentioned above. FAMILY HISTORY: Noncontributory. SOCIAL HISTORY: He lives at home. Does not smoke or drink alcohol. PHYSICAL EXAMINATION: VITAL SIGNS: Show blood pressure of 120/72, pulse is 62, respirations 18, and temperature 96.7. HEAD AND NECK: Showed no JVD. LUNGS: Clear. CARDIOVASCULAR: Shows regular S1 and S2 with no gallop or murmur. ABDOMEN: Soft. EXTREMITIES: No pitting edema. Pacemaker in left subclavian intact. LABORATORY DATA: His labs show negative troponins x3. Sodium 141, potassium 3.6, BUN of 12, creatinine of 1, and glucose of 140. White count is 5.5, hematocrit 11, hematocrit 33, and platelet count 161,000. ASSESSMENT AND PLAN: 1. Atypical chest pain. The patient is already ruled out for myocardial infarction by serial cardiac enzymes. His EKG is completely normal. We will get an echocardiogram and schedule the patient for stress test for further evaluation and management. 2. History of pulmonary embolus, status post open embolectomy. The patient is on Eliquis 5 mg twice a day already. 3. Diabetes, on metformin 500 mg twice a day. 4. Hyperlipidemia, on Lipitor. 5. Benign prostatic hypertrophy, on Proscar. 6. History of glaucoma. Thank you very much for allowing me to participate in the care of this patient. Please do not hesitate to contact me for any questions regarding my evaluation. Gato Zayas M.D. DR: ANNIE JOB#: [id number] CC:
[2019-08-29] VITALS: BP_SYST 108; BP_SYST 131; BP_DIAS 70; BP_DIAS 76
[2019-08-29] MEDS: Morphine Sulfate 2mg/ml Inj(IV/IM USE ONLY) IVP PRN ×2 (00:50→09:50)
[2019-08-29 04:00] VITALS: BP 114/70
[2019-08-29] MEDS: NovoLOG Insulin Flexpen SUBQ SCH ×3 (05:30→16:30)
[2019-08-29 06:46] LABS: EOSINOPHILS % (AUTO) 3.7 % (0.0-3.0); HEMOGLOBIN 11.8 G/DL (14.2-18.0); LYMPHOCYTES % (AUTO) 21.5 % (20.0-45.0); MEAN CORPUSCULAR VOLUME 83 FL (80-99); MONOCYTES % (AUTO) 11.5 % (1.0-10.0); NEUTROPHILS % (AUTO) 62.4 % (45.0-75.0); PLATELET COUNT 155 K/UL (150-450); RED BLOOD COUNT 4.33 M/UL (4.70-6.10); WHITE BLOOD COUNT 5.9 K/UL (4.8-10.8)
[2019-08-29 07:13] LABS: ANION GAP 9 mmol/L (5-15); BLOOD UREA NITROGEN 13 mg/dL (7-18); CALCIUM 8.5 MG/DL (8.5-10.1); CARBON DIOXIDE 25 MMOL/L (21-32); CHLORIDE 106 MMOL/L (98-107); CREATININE 1.1 MG/DL (0.55-1.30); POTASSIUM 3.8 MMOL/L (3.5-5.1); SODIUM 140 MMOL/L (136-145)
--- NOTE | 2019-08-29 08:56 | General Progress Note ---
Assessment/Plan Problem List: (1) Pacemaker malfunction ICD Codes: T82.111A - Breakdown (mechanical) of cardiac pulse generator ( battery), initial encounter SNOMED: 410470477 (2) DVT (deep venous thrombosis) ICD Codes: I82.409 - DVT (deep venous thrombosis) SNOMED: 382453382 (3) DDD (degenerative disc disease), lumbar ICD Codes: M51.36 - DDD (degenerative disc disease), lumbar SNOMED: 31259230 (4) COPD (chronic obstructive pulmonary disease) ICD Codes: J44.9 - COPD (chronic obstructive pulmonary disease) SNOMED: 60845873 (5) HTN (hypertension) ICD Codes: I10 - Essential (primary) hypertension SNOMED: 44801903 (6) Hx pulmonary embolism ICD Codes: Z86.711 - Hx pulmonary embolism SNOMED: 351962853 (7) Diabetes mellitus ICD Codes: E11.9 - Type 2 diabetes mellitus without complications SNOMED: 64674441 (8) Chest pain ICD Codes: R07.9 - Chest pain, unspecified SNOMED: 16252456 Qualifiers: Qualified Codes: R07.9 - Chest pain, unspecified Status: stable, progressing Assessment/Plan: pt diet cardio f/u [pain control cbc bmp am dc if cardio clear Subjective Constitutional: Reports: weakness Allergies: Uncoded Allergies: CONTRAST DYE (Allergy, Unknown, 03/15/19) All Systems: reviewed and negative except above Subjective sleepy in bed Objective Last 24 Hour Vital Signs Date Time Temp Pulse Resp B/P (MAP) Pulse Ox O2 Delivery O2 Flow Rate FiO2 08/29/19 04:00 97.9 65 16 114/70 (85) 98 08/29/19 03:34 63 08/29/19 01:20 97.5 08/29/19 00:00 97.5 66 16 108/70 (83) 98 08/28/19 23:30 73 08/28/19 22:59 97.3 08/28/19 21:00 Room Air 08/28/19 20:00 97.2 65 18 111/72 (85) 98 08/28/19 19:49 65 08/28/19 16:00 97.3 64 16 111/70 (84) 98 08/28/19 16:00 68 08/28/19 12:00 97.3 63 16 118/70 (86) 98 08/28/19 12:00 60 08/28/19 09:00 Room Air Intake and Output 08/28/19 08/29/19 19:00 07:00 # Voids 2 # Bowel Movements 1 1 Laboratory Tests 08/28/19 12:30: Troponin I 0.000 08/28/19 21:15: Troponin I 0.000 08/29/19 06:10: White Blood Count 5.9, Red Blood Count 4.33L, Hemoglobin 11.8L, Hematocrit 36.0L , Mean Corpuscular Volume 83, Mean Corpuscular Hemoglobin 27.2, Mean Corpuscular Hemoglobin Concent 32.6, Red Cell Distribution Width 15.0H, Platelet Count 155, Mean Platelet Volume 9.1, Neutrophils (%) (Auto) 62.4, Lymphocytes (%) (Auto) 21.5, Monocytes (%) (Auto) 11.5H, Eosinophils (%) (Auto) 3.7H, Basophils (%) (Auto) 1.0, Sodium Level 140, Potassium Level 3.8, Chloride Level 106, Carbon Dioxide Level 25, Anion Gap 9, Blood Urea Nitrogen 13, Creatinine 1.1, Estimat Glomerular Filtration Rate > 60, Glucose Level 112H, Calcium Level 8.5 Height (Feet): 5 Height (Inches): 8.00 Weight (Pounds): 196 General Appearance: lethargic EENT: normal ENT inspection Neck: normal alignment Cardiovascular: normal peripheral pulses, normal rate, regular rhythm Respiratory/Chest: chest wall non-tender, lungs clear, normal breath sounds Abdomen: normal bowel sounds, non tender, soft Extremities: normal inspection Edema: no edema noted Arm (L), no edema noted Arm (R), no edema noted Leg (L), no edema noted Leg (R), no edema noted Pedal (L), no edema noted Pedal (R), no edema noted Generalized Neurologic: motor weakness Skin: normal pigmentation, warm/dry Kevin Kelly DO Aug 29, 2019 08:56
[2019-08-29] MEDS: metFORMIN 500mg tab ORAL SCH ×2 (09:50→17:46)
[2019-08-29] MEDS: Eliquis 5mg tablet ORAL SCH ×2 (09:50→17:46)
[2019-08-29] MEDS: Atorvastatin 80mg tab ORAL SCH (09:50)
[2019-08-29] MEDS: Brimonidine 0.2% Opth Sol BOTH EYES SCH ×3 (09:57→17:49)
[2019-08-29] MEDS: Cosopt Opth Soln 10 mL Btl BOTH EYES SCH ×2 (09:57→17:49)
[2019-08-29 12:00] VITALS: BP 108/66
[2019-08-29 16:00] VITALS: BP 122/66
--- NOTE | 2019-08-29 18:14 | Cardiac Electrophysiology PN ---
Assessment/Plan Assessment/Plan 1. Atypical chest pain. The patient is already ruled out for myocardial infarction by serial cardiac enzymes. His EKG is completely normal. Refused stress test. Very noncompliant. OK to DC 2. History of pulmonary embolus, status post open embolectomy. The patient is on Eliquis 5 mg twice a day already. 3. S/P [facility] Pacer implant with Nl Fx 4. Hyperlipidemia, on Lipitor. 5. Benign prostatic hypertrophy, on Proscar. 6. History of glaucoma. 7. Diabetes, on metformin 500 mg twice a day. Subjective Subjective Very noncompliant. Refused stress test. Has been going to multiple hospitals Pacer reps wont check hi spacers anymore! On remote monitoring. Last interrogation 08/13/19 at [facility] and showed Nl Fx Objective Last 24 Hour Vital Signs Date Time Temp Pulse Resp B/P (MAP) Pulse Ox O2 Delivery O2 Flow Rate FiO2 08/29/19 16:00 97.2 58 16 122/66 (84) 96 08/29/19 12:00 97.3 64 18 108/66 (80) 97 08/29/19 12:00 60 08/29/19 10:20 97.9 08/29/19 09:00 Room Air 08/29/19 08:00 81 08/29/19 04:00 97.9 65 16 114/70 (85) 98 08/29/19 03:34 63 08/29/19 00:00 97.5 66 16 108/70 (83) 98 08/28/19 23:30 73 08/28/19 22:59 97.3 08/28/19 21:00 Room Air 08/28/19 20:00 97.2 65 18 111/72 (85) 98 08/28/19 19:49 65 Intake and Output 08/28/19 08/29/19 19:00 07:00 # Voids 2 # Bowel Movements 1 1 Laboratory Tests Test 08/28/19 21:15 08/29/19 06:10 Troponin I 0.000 ng/mL (0.000-0.056) White Blood Count 5.9 K/UL (4.8-10.8) Red Blood Count 4.33 M/UL (4.70-6.10) L Hemoglobin 11.8 G/DL (14.2-18.0) L Hematocrit 36.0 % (42.0-52.0) L Mean Corpuscular Volume 83 FL (80-99) Mean Corpuscular Hemoglobin 27.2 PG (27.0-31.0) Mean Corpuscular Hemoglobin Concent 32.6 G/DL (32.0-36.0) Red Cell Distribution Width 15.0 % (11.6-14.8) H Platelet Count 155 K/UL (150-450) Mean Platelet Volume 9.1 FL (6.5-10.1) Neutrophils (%) (Auto) 62.4 % (45.0-75.0) Lymphocytes (%) (Auto) 21.5 % (20.0-45.0) Monocytes (%) (Auto) 11.5 % (1.0-10.0) H Eosinophils (%) (Auto) 3.7 % (0.0-3.0) H Basophils (%) (Auto) 1.0 % (0.0-2.0) Sodium Level 140 MMOL/L (136-145) Potassium Level 3.8 MMOL/L (3.5-5.1) Chloride Level 106 MMOL/L (98-107) Carbon Dioxide Level 25 MMOL/L (21-32) Anion Gap 9 mmol/L (5-15) Blood Urea Nitrogen 13 mg/dL (7-18) Creatinine 1.1 MG/DL (0.55-1.30) Estimat Glomerular Filtration Rate > 60 mL/min (>60) Glucose Level 112 MG/DL (74-106) H Calcium Level 8.5 MG/DL (8.5-10.1) Objective HEAD AND NECK: No JVD. LUNGS: Clear. CARDIOVASCULAR: Shows regular S1 and S2 with no gallop or murmur. ABDOMEN: Soft. EXTREMITIES: No pitting edema. Pacemaker in left subclavian intact. Gato Zayas MD Aug 29, 2019 18:14
--- NOTE | 2019-08-31 12:01 | Discharge Summary ---
Discharge Summary Discharge Summary _ DATE OF ADMISSION: 08/27/2019 DATE OF DISCHARGE: 08/29/2019 DISCHARGED BY: Dr. Kevin Kelly CONSULTANTS: Dr. Gato Zayas BRIEF HOSPITAL COURSE: Patient is a 64-year-old male currently lives at home, presented with substernal chest pain. Patient clinically radiating to the arm with slight dizziness, slight shortness of breath, but no loss of consciousness. Pain was intermittent. Pain presented to ED for further evaluation. He has medical history significant for degenerative disc disease, DVT, COPD, CAD, palpitations , diabetes and glaucoma. He is status post [employer] permanent pacemaker implantation secondary to sick sinus syndrome. Upon evaluation at ED, vital signs were stable. Blood work did not show any leukocytosis. Hemoglobin and hematocrit were stable. Electrolytes were normal. Troponin was negative. EKG was negative. Chest x-ray negative. He was given aspirin. He was admitted for further evaluation. He underwent cardiac evaluation. Cardiac enzymes were monitored. EKG was normal. He was continued on Eliquis 5 mg twice daily. Blood glucose was monitored. He was continued on metformin 500 mg twice daily. He was given Lipitor. Patient refused stress test. Patient noncompliant. He has been going to multiple hospitals. Patient develops wound check his pacemaker anymore. On remote monitoring. Last interrogation done on August 13, 2019 at [facility] showed normal function. Patient was cleared for discharge home. FINAL DIAGNOSES: Atypical chest pain History of PE status post open embolectomy Status post [facility] pacemaker implantation with normal function Hyperlipidemia BPH History of glaucoma Diabetes Lumbar degenerative disc disease DISPOSITION: Patient was discharged home. DISCHARGE MEDICATIONS: Refer to Discharge Medication List. I have been assigned to complete a discharge summary on this account, I was not involved with the patient's management.--BERNA Carreon Jacqueline Robles NP Aug 31, 2019 12:01
--- NOTE | 2019-09-07 11:23 | Coder Physician Query ---
Clarification is required for compliance, coding accuracy, and to reflect severity of illness for this patient Dear Dr. PARKER Date: 09/07/19 Military Police Officer/CDS' Name : RYLEE NOVAK Upon evaluation at ED, vital signs were stable. Blood work did not show any leukocytosis. Hemoglobin and hematocrit were stable. Electrolytes were normal. Troponin was negative. EKG was negative. Chest x-ray negative. He was given aspirin. He was admitted for further evaluation. He underwent cardiac evaluation. Cardiac enzymes were monitored. EKG was normal. He was continued on Eliquis 5 mg twice daily. Blood glucose was monitored. He was continued on metformin 500 mg twice daily. He was given Lipitor. Patient refused stress test. Patient noncompliant. He has been going to multiple hospitals. Patient develops wound check his pacemaker anymore. On remote monitoring. Last interrogation done on August 13, 2019 at [facility] showed normal function. Patient was cleared for discharge home. FINAL DIAGNOSES: Atypical chest pain History of PE status post open embolectomy Status post [facility] pacemaker implantation with normal function Hyperlipidemia, BPH,History of glaucoma,Diabetes Lumbar degenerative disc disease Please document the suspected etiology of Chest Pain: [] Acute Coronary Syndrome [] Pericarditis [] Anxiety [] Costochondritis [] Pneumothorax [] GERD/Esophagitis [] Pulmonary embolism [] Other: [] Unable to determine JOHAN PARKER D.O. Date Please also document in your Progress Notes and/or Discharge Summary and indicate if the condition was present on admission. MTDD
== END 2019-08-29 19:39 | disposition home or self-care (01) | DRG 313 ==
LOC: EMR 12:16 → 2E 13:18 → EDBEDREQ 14:25
DX: R07.89 Other chest pain (principal); E46 Unspecified protein-calorie malnutrition; I11.9 Hypertensive heart disease without heart failure; J44.9 Chronic obstructive pulmonary disease, unspecified; Z91.041 Radiographic dye allergy status; I25.10 Atherosclerotic heart disease of native coronary artery without angina pectoris; Z86.711 Personal history of pulmonary embolism; Z95.0 Presence of cardiac pacemaker; E78.5 Hyperlipidemia, unspecified; M51.36 Other intervertebral disc degeneration, lumbar region; N40.0 Benign prostatic hyperplasia without lower urinary tract symptoms; E11.9 Type 2 diabetes mellitus without complications; H40.9 Unspecified glaucoma; Z86.718 Personal history of other venous thrombosis and embolism; Z79.84 Long term (current) use of oral hypoglycemic drugs; Z91.19 Patient's noncompliance with other medical treatment and regimen
CPT/HCPCS: 36415; 71045; 80048; 80053; 82962; 83880; 84484; 85025; 85610; 85730; 93005; 93306; 96374; 96375; 99285; J1815; J2405

== ENCOUNTER 2019-09-02 21:07 | Inpatient (IN) | payer MEDICARE, MEDICAID ==
[~2019-09-02] VITALS: Ht 172.7 cm; Wt 88.9 kg
[2019-09-02] MEDS ORDERED: Morphine Sulfate 4mg/ml Inj (IV USE ONLY) IVP ONE (21:15)
[2019-09-02] MEDS ORDERED: Nitroglycerin 2% oint pkt TOPIC ONE (21:15)
--- NOTE | 2019-09-02 21:15 | Emergency Room Report ---
History of Present Illness General Source: Patient, EMS Present Illness HPI Patient presents with a non-provoked left-sided chest pain. He was having a conversation when this occurred and not stressed. He feels pressure in his chest. He rates it 7/10 and constant. He was given aspirin and nitroglycerin in the field without any relief. The patient has a history of pulmonary embolus. He had to have open heart to treat this. He is on Eliquis at this time. He denies fevers or chills. There is no productive cough, sore throat or hemoptysis. He has some left knee pain but denies edema or calf pain. Patient last admitted August 26 August 28 of this year. Discharge diagnoses: Atypical chest pain History of PE status post open embolectomy Status post [employer] pacemaker implantation with normal function Hyperlipidemia BPH History of glaucoma Diabetes Lumbar degenerative disc disease He last had a VQ scan April 2019 which was low probability for pulmonary embolus. 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 studying history Reviewed Nursing Documentation: PMH: Agreed; PSxH: Agreed Nursing Documentation-PMH Hx Cardiac Problems: Yes - Hx Hypertension: Yes Hx Pacemaker: Yes Hx Asthma: No Hx COPD: Yes Hx Diabetes: Yes Hx Cancer: No Hx Gastrointestinal Problems: No Hx Dialysis: No Hx Neurological Problems: No Hx Cerebrovascular Accident: No Hx Seizures: No Review of Systems All Other Systems: negative except mentioned in HPI Physical Exam Vital Signs Date Time Temp Pulse Resp B/P (MAP) Pulse Ox O2 Delivery O2 Flow Rate FiO2 09/02/19 21:09 98.8 86 18 146/77 (100) 97 Room Air Sp02 EP Interpretation: reviewed, normal General Appearance: well appearing, no apparent distress, GCS 15 Head: normocephalic Eyes: bilateral eye normal inspection, bilateral eye PERRL, bilateral eye EOMI ENT: moist mucus membranes Neck: supple Respiratory: lungs clear, normal breath sounds Cardiovascular #1: regular rate, rhythm, no edema, other - Anatomy scar Cardiovascular #2: 2+ radial (R) Gastrointestinal: normal inspection, normal bowel sounds, non tender, no mass, non-distended Musculoskeletal: back normal, normal range of motion, gait/station normal, other - Some tenderness left knee Neurologic: alert, oriented x3, grossly normal Psychiatric: mood/affect normal, depressed affect Skin: no rash, warm/dry Medical Decision Making Diagnostic Impression: Primary Impression: Chest pain Qualified Codes: R07.9 - Chest pain, unspecified Additional Impression: Hx pulmonary embolism ER Course Patient presents with left-sided chest pressure similar to when he had a pulmonary embolus. Differential includes acute myocardial infarction, acute coronary syndrome, pulmonary embolus, chest wall pain amongst others. Patient evaluated with EKG, chest x-ray, noninvasive vascular study of lower legs and labs. Patient treated with Nitropaste, Zofran and morphine as received aspirin in the field. We are unable to perform CTA chest because he is allergic to contrast dye. Consideration for VQ scan. Based on vital signs pulmonary embolus is less likely. EKG is normal sinus rhythm rate [address]-T wave changes with atrial enlargement. Chest x-ray with elevated left hemidiaphragm no infiltrates. Labs essentially normal with normal troponin. Ultrasound of the legs exclude DVT at this time. Patient improved somewhat with treatment. Observation indicated to exclude cardiac cause of chest pain. Laboratory Tests Test 09/02/19 21:25 09/02/19 22:45 09/03/19 06:50 White Blood Count 7.1 K/UL (4.8-10.8) 5.4 K/UL (4.8-10.8) Red Blood Count 4.72 M/UL (4.70-6.10) 4.47 M/UL (4.70-6.10) L Hemoglobin 12.7 G/DL (14.2-18.0) L 12.3 G/DL (14.2-18.0) L Hematocrit 38.7 % (42.0-52.0) L 36.3 % (42.0-52.0) L Mean Corpuscular Volume 82 FL (80-99) 81 FL (80-99) Mean Corpuscular Hemoglobin 26.8 PG (27.0-31.0) L 27.5 PG (27.0-31.0) Mean Corpuscular Hemoglobin Concent 32.7 G/DL (32.0-36.0) 33.9 G/DL (32.0-36.0) Red Cell Distribution Width 18.3 % (11.6-14.8) H 14.6 % (11.6-14.8) Platelet Count 211 K/UL (150-450) 186 K/UL (150-450) Mean Platelet Volume 9.5 FL (6.5-10.1) 9.1 FL (6.5-10.1) Neutrophils (%) (Auto) 63.3 % (45.0-75.0) 55.4 % (45.0-75.0) Lymphocytes (%) (Auto) 21.5 % (20.0-45.0) 24.6 % (20.0-45.0) Monocytes (%) (Auto) 10.5 % (1.0-10.0) H 14.5 % (1.0-10.0) H Eosinophils (%) (Auto) 2.3 % (0.0-3.0) 4.3 % (0.0-3.0) H Basophils (%) (Auto) 2.5 % (0.0-2.0) H 1.2 % (0.0-2.0) Prothrombin Time 10.7 SEC (9.30-11.50) Prothrombin Time INR 1.0 (0.9-1.1) Activated Partial Thromboplast Time 30 SEC (23-33) Sodium Level 143 MMOL/L (136-145) 144 MMOL/L (136-145) Potassium Level 4.0 MMOL/L (3.5-5.1) 3.9 MMOL/L (3.5-5.1) Chloride Level 107 MMOL/L (98-107) 108 MMOL/L (98-107) H Carbon Dioxide Level 23 MMOL/L (21-32) 26 MMOL/L (21-32) Anion Gap 13 mmol/L (5-15) 11 mmol/L (5-15) Blood Urea Nitrogen 17 mg/dL (7-18) 15 mg/dL (7-18) Creatinine 1.1 MG/DL (0.55-1.30) 1.1 MG/DL (0.55-1.30) Estimated Glomerular Filtration Rate > 60 mL/min (>60) > 60 mL/min (>60) Glucose Level 113 MG/DL (74-106) H 160 MG/DL (74-106) H Calcium Level 9.6 MG/DL (8.5-10.1) 9.3 MG/DL (8.5-10.1) Total Bilirubin 0.5 MG/DL (0.2-1.0) Aspartate Amino Transferase (AST) 18 U/L (15-37) Alanine Aminotransferase (ALT) 17 U/L (12-78) Alkaline Phosphatase 70 U/L (46-116) Total Creatine Kinase 132 U/L (26-308) Troponin I 0.002 ng/mL (0.000-0.056) Pro-B-Type Natriuretic Peptide 31 pg/mL (0-125) Total Protein 7.7 G/DL (6.4-8.2) Albumin 4.0 G/DL (3.4-5.0) Globulin 3.7 g/dL Albumin/Globulin Ratio 1.1 (1.0-2.7) Urine Color Pale yellow Urine Appearance Clear Urine pH 6.0 (4.5-8.0) Urine Specific Pana 1.020 (1.005-1.035) Urine Protein 1+ (NEGATIVE) H Urine Glucose (UA) Negative (NEGATIVE) Urine Ketones 2+ (NEGATIVE) H Urine Blood Negative (NEGATIVE) Urine Nitrite Negative (NEGATIVE) Urine Bilirubin Negative (NEGATIVE) Urine Urobilinogen Normal MG/DL (0.0-1.0) Urine Leukocyte Esterase 1+ (NEGATIVE) H Urine RBC 0 /HPF (0 - 0) Urine WBC 5-10 /HPF (0 - 0) H Urine Squamous Epithelial Cells Occasional /LPF Urine Bacteria Occasional /HPF (NONE) Urine Mucus Few /LPF (NONE/OCC) H Urine Opiates Screen Negative (NEGATIVE) Urine Barbiturates Screen Negative (NEGATIVE) Phencyclidine (PCP) Screen Negative (NEGATIVE) Urine Amphetamines Screen Negative (NEGATIVE) Urine Benzodiazepines Screen Negative (NEGATIVE) Urine Cocaine Screen Negative (NEGATIVE) Urine Marijuana (THC) Screen Negative (NEGATIVE) EKG Diagnostic Results Rate: normal Rhythm: NSR ST Segments: no acute changes - Nonspecific ST-T wave changes with atrial enlargement ASA given to the pt in ED: Yes - Given in the field Rhythm Strip Diag. Results EP Interpretation: yes Rhythm: NSR, no PVC's, no ectopy Chest X-Ray Diagnostic Results Chest X-Ray Diagnostic Results : Chest X-Ray Ordered: Yes # of Views/Limited/Complete: 1 View Indication: Chest Pain EP Interpretation: Yes Interpretation: no consolidation, no effusion, no pneumothorax, other - Pacemaker and elevated left hemidiaphragm Impression: Other Electronically Signed by: Electronically signed by Bakari Jimenez MD Last Vital Signs Date Time Temp Pulse Resp B/P (MAP) Pulse Ox O2 Delivery O2 Flow Rate FiO2 09/03/19 11:10 97.2 09/03/19 09:00 Room Air 09/03/19 08:00 62 09/03/19 08:00 18 128/70 (89) 96 Status: improved Disposition: PLACE IN OBSERVATION Condition: Serious Bakari Jimenez MD Sep 02, 2019 21:15
[2019-09-02 21:40] VITALS: BP 116/82
--- NOTE | 2019-09-02 21:40 | NUR ---
ER Nurse Note: Pr brought in by ambulance 60from an urgent care c/o LT side chest pain 7/10, non radiating for five hrs. Pt stated he was at rest, socializing when pain occured. EMS administered 324mg ASA and 3 spray of nirto; effective pain /10. Chest rise and fall noted, breath sounds equal. ERMD at pt side; will continue to monitr.
[2019-09-02 21:41] LABS: BASOPHILS % (AUTO) 2.5 % (0.0-2.0); EOSINOPHILS % (AUTO) 2.3 % (0.0-3.0); HEMATOCRIT 38.7 % (42.0-52.0); HEMOGLOBIN 12.7 G/DL (14.2-18.0); LYMPHOCYTES % (AUTO) 21.5 % (20.0-45.0); MEAN CORPUSCULAR VOLUME 82 FL (80-99); MONOCYTES % (AUTO) 10.5 % (1.0-10.0); NEUTROPHILS % (AUTO) 63.3 % (45.0-75.0); PLATELET COUNT 211 K/UL (150-450); RED BLOOD COUNT 4.72 M/UL (4.70-6.10); RED CELL DISTRIBUTION WIDTH 18.3 % (11.6-14.8); WHITE BLOOD COUNT 7.1 K/UL (4.8-10.8)
[2019-09-02 21:48] LABS: ANION GAP 13 mmol/L (5-15); BLOOD UREA NITROGEN 17 mg/dL (7-18); CALCIUM 9.6 MG/DL (8.5-10.1); CARBON DIOXIDE 23 MMOL/L (21-32); CHLORIDE 107 MMOL/L (98-107); CREATININE 1.1 MG/DL (0.55-1.30); SODIUM 143 MMOL/L (136-145)
[2019-09-02 21:59] LABS: ALANINE AMINOTRANSFERASE 17 U/L (12-78); ALBUMIN/GLOBULIN RATIO 1.1 (1.0-2.7); ALKALINE PHOSPHATASE 70 U/L (46-116); ASPARTATE AMINO TRANSFERASE 18 U/L (15-37); BILIRUBIN,TOTAL 0.5 MG/DL (0.2-1.0); CREATINE KINASE 132 U/L (26-308)
[2019-09-02 22:33] VITALS: BP 132/74
--- NOTE | 2019-09-02 22:34 | NUR ---
ER Nurse Note: Pt remains at baseline. All orders completed per ERMD orders. US at bedside. Pt stated his pain is gettting better. VSS, RA. Swabs refused. Will continue to montior.
[2019-09-02] MEDS ORDERED: Morphine Sulfate 4mg/ml Inj (IV USE ONLY) ONE (23:56)
[2019-09-03] MEDS ORDERED: Potassium Chloride 10 MEQ in D5 1/2NS 1,000 ML IV SCH (05:15)
[2019-09-03 05:35] LABS: APPEARANCE,URINE CLEAR; BILIRUBIN, URINE NEGATIVE (NEGATIVE); COLOR,URINE PALE YELLOW; GLUCOSE, URINE (UA) NEGATIVE (NEGATIVE); KETONES,URINE 2+ (NEGATIVE); LEUKOCYTE ESTERASE ,URINE 1+ (NEGATIVE); NITRITE,URINE NEGATIVE (NEGATIVE); PROTEIN,URINE 1+ (NEGATIVE); UROBILINOGEN,URINE NORMAL MG/DL (0.0-1.0)
[2019-09-03] MEDS: Morphine Sulfate 2mg/ml Inj(IV/IM USE ONLY) IVP PRN ×3 (05:49→20:27)
[2019-09-03] MEDS: D5 1/2NS 1,000 ML IV SCH (05:54)
--- NOTE | 2019-09-03 06:26 | NUR ---
NURSE NOTES: Received patient from KOERY Garay. Patient awake, alert and ambulatory. skin intact. bed in lowest position. lung sounds clear. Patient stated that pain level went down after administration of medications in the ED. call light placed within reach. admission assessment found in chart due to meditech downtime. admission orders received from Dr. Kelly. will continue to monitor.
[2019-09-03 07:16] LABS: BASOPHILS % (AUTO) 1.2 % (0.0-2.0); EOSINOPHILS % (AUTO) 4.3 % (0.0-3.0); HEMATOCRIT 36.3 % (42.0-52.0); HEMOGLOBIN 12.3 G/DL (14.2-18.0); LYMPHOCYTES % (AUTO) 24.6 % (20.0-45.0); MEAN CORPUSCULAR VOLUME 81 FL (80-99); MONOCYTES % (AUTO) 14.5 % (1.0-10.0); NEUTROPHILS % (AUTO) 55.4 % (45.0-75.0); PLATELET COUNT 186 K/UL (150-450); RED BLOOD COUNT 4.47 M/UL (4.70-6.10); RED CELL DISTRIBUTION WIDTH 14.6 % (11.6-14.8); WHITE BLOOD COUNT 5.4 K/UL (4.8-10.8)
--- NOTE | 2019-09-03 07:16 | NUR ---
HAND-OFF: Report given to KOREY Mora and KOREY Browne. Patient stable.
[2019-09-03 07:18] LABS: ANION GAP 11 mmol/L (5-15); BLOOD UREA NITROGEN 15 mg/dL (7-18); CALCIUM 9.3 MG/DL (8.5-10.1); CARBON DIOXIDE 26 MMOL/L (21-32); CHLORIDE 108 MMOL/L (98-107); CREATININE 1.1 MG/DL (0.55-1.30); POTASSIUM 3.9 MMOL/L (3.5-5.1); SODIUM 144 MMOL/L (136-145)
--- NOTE | 2019-09-03 07:30 | NUR ---
NURSE NOTES: RECEIVED REPORT FROM KOREY GONZALEZ. PATIENT ASLEEP IN BED, WITH AUNT AT BEDSIDE. NO COMPLAINTS OF PAIN OR DISCOMFORT. BREATHING IS EVEN AND UNLABORED ON ROOM AIR- NO S/SX OF DISTRESS. BED LOCKED AND IN LOWEST POSITION. CALL LIGHT IN REACH. WILL CONTINUE TO MONITOR. Addendum: 09/03/19 at 0746 by Hollie Lozano RN CORRECTION: NURSE NOTES: RECEIVED REPORT FROM KOREY BARTON. PATIENT IN BED, AWAKE AND VERBALLY RESPONSIVE, ABLE TO MAKE NEEDS KNOWN. NO COMPLAINTS OF PAIN OR DISCOMFORT AT THIS TIME. BREATHING IS EVEN AND UNLABORED ON ROOM AIR- NO S/SX OF DISTRESS. BED LOCKED AND IN LOWEST POSITION. CALL LIGHT IN REACH. WILL CONTINUE TO MONITOR.
[2019-09-03 08:00] VITALS: BP 128/70
--- NOTE | 2019-09-03 09:00 | NUR ---
PATIENT REQUESTED TO BE DISCONNECTED FROM IV FLUIDS, STATING HE WANTED TO "REST AND HAVE FREEDOM". EXPLAINED TO PATIENT THE IMPORTANCE OF PRESCRIBED FLUIDS, BUT PATIENT STILL INSISTED ON BEING DISCONNECTED. PER PATIENT HE WILL INFORM US WHEN HE'S READY TO BE CONNECTED.
[2019-09-03] MEDS: Eliquis 5mg tablet ORAL SCH ×2 (09:01→17:43)
[2019-09-03] MEDS: metFORMIN 500mg tab ORAL SCH ×2 (09:01→17:42)
[2019-09-03] MEDS: Brimonidine 0.2% Opth Sol BOTH EYES SCH ×3 (09:29→17:42)
[2019-09-03] MEDS: Cosopt Opth Soln 10 mL Btl BOTH EYES SCH ×2 (09:29→17:42)
--- NOTE | 2019-09-03 09:55 | NUR ---
DISCHARGE PLANNING RECEIVED CALL FROM [employer]EGAN STATING MR MUÑOZ CALLED THEM TO APPEAL HIS DISCHARGE CASE NUMBER ASSIGNED IS ~ [id number] MAEGAN PERSON, JORDON SAID SHE WILL CALL US BACK REGARDING LACK OF MEDICARE PART A IT PERTAINS TO APPEALING DISCHARGE. LEFT MESSAGE FOR [facility] CLINICIAN @ T: [phone] REGARDING APPEAL LEFT MESSAGE FOR THERESA IN ADMITTING @ EXT: [phone]. REQUESTED DOCUMENTATION OF EXHAUSTED MEDICARE PART A Addendum: 09/03/19 at 1104 by ANAM GOODEN *-* COMPLETE MEDICAL RECORDS FOR THIS ADMISSION HAVE BEEN FAXED TO: [facility] F: [phone]
--- NOTE | 2019-09-03 10:57 | Cardiac Electrophysiology PN ---
Subjective Subjective [id number] Objective Last 24 Hour Vital Signs Date Time Temp Pulse Resp B/P (MAP) Pulse Ox O2 Delivery O2 Flow Rate FiO2 09/03/19 09:00 Room Air 09/03/19 08:00 62 09/03/19 08:00 97.2 62 18 128/70 (89) 96 09/02/19 22:33 98.8 76 18 132/74 97 Room Air 09/02/19 21:58 98.8 09/02/19 21:40 86 18 Room Air 09/02/19 21:40 98.8 78 18 116/82 97 Room Air 09/02/19 21:29 116/82 09/02/19 21:09 98.8 86 18 146/77 (100) 97 Room Air Laboratory Tests Test 09/02/19 21:25 09/02/19 22:45 09/03/19 06:50 White Blood Count 7.1 K/UL (4.8-10.8) 5.4 K/UL (4.8-10.8) Red Blood Count 4.72 M/UL (4.70-6.10) 4.47 M/UL (4.70-6.10) L Hemoglobin 12.7 G/DL (14.2-18.0) L 12.3 G/DL (14.2-18.0) L Hematocrit 38.7 % (42.0-52.0) L 36.3 % (42.0-52.0) L Mean Corpuscular Volume 82 FL (80-99) 81 FL (80-99) Mean Corpuscular Hemoglobin 26.8 PG (27.0-31.0) L 27.5 PG (27.0-31.0) Mean Corpuscular Hemoglobin Concent 32.7 G/DL (32.0-36.0) 33.9 G/DL (32.0-36.0) Red Cell Distribution Width 18.3 % (11.6-14.8) H 14.6 % (11.6-14.8) Platelet Count 211 K/UL (150-450) 186 K/UL (150-450) Mean Platelet Volume 9.5 FL (6.5-10.1) 9.1 FL (6.5-10.1) Neutrophils (%) (Auto) 63.3 % (45.0-75.0) 55.4 % (45.0-75.0) Lymphocytes (%) (Auto) 21.5 % (20.0-45.0) 24.6 % (20.0-45.0) Monocytes (%) (Auto) 10.5 % (1.0-10.0) H 14.5 % (1.0-10.0) H Eosinophils (%) (Auto) 2.3 % (0.0-3.0) 4.3 % (0.0-3.0) H Basophils (%) (Auto) 2.5 % (0.0-2.0) H 1.2 % (0.0-2.0) Prothrombin Time 10.7 SEC (9.30-11.50) Prothromb Time International Ratio 1.0 (0.9-1.1) Activated Partial Thromboplast Time 30 SEC (23-33) Sodium Level 143 MMOL/L (136-145) 144 MMOL/L (136-145) Potassium Level 4.0 MMOL/L (3.5-5.1) 3.9 MMOL/L (3.5-5.1) Chloride Level 107 MMOL/L (98-107) 108 MMOL/L (98-107) H Carbon Dioxide Level 23 MMOL/L (21-32) 26 MMOL/L (21-32) Anion Gap 13 mmol/L (5-15) 11 mmol/L (5-15) Blood Urea Nitrogen 17 mg/dL (7-18) 15 mg/dL (7-18) Creatinine 1.1 MG/DL (0.55-1.30) 1.1 MG/DL (0.55-1.30) Estimat Glomerular Filtration Rate > 60 mL/min (>60) > 60 mL/min (>60) Glucose Level 113 MG/DL (74-106) H 160 MG/DL (74-106) H Calcium Level 9.6 MG/DL (8.5-10.1) 9.3 MG/DL (8.5-10.1) Total Bilirubin 0.5 MG/DL (0.2-1.0) Aspartate Amino Transf (AST/SGOT) 18 U/L (15-37) Alanine Aminotransferase (ALT/SGPT) 17 U/L (12-78) Alkaline Phosphatase 70 U/L (46-116) Total Creatine Kinase 132 U/L (26-308) Troponin I 0.002 ng/mL (0.000-0.056) Pro-B-Type Natriuretic Peptide 31 pg/mL (0-125) Total Protein 7.7 G/DL (6.4-8.2) Albumin 4.0 G/DL (3.4-5.0) Globulin 3.7 g/dL Albumin/Globulin Ratio 1.1 (1.0-2.7) Urine Color Pale yellow Urine Appearance Clear Urine pH 6.0 (4.5-8.0) Urine Specific Whick 1.020 (1.005-1.035) Urine Protein 1+ (NEGATIVE) H Urine Glucose (UA) Negative (NEGATIVE) Urine Ketones 2+ (NEGATIVE) H Urine Blood Negative (NEGATIVE) Urine Nitrite Negative (NEGATIVE) Urine Bilirubin Negative (NEGATIVE) Urine Urobilinogen Normal MG/DL (0.0-1.0) Urine Leukocyte Esterase 1+ (NEGATIVE) H Urine RBC 0 /HPF (0 - 0) Urine WBC 5-10 /HPF (0 - 0) H Urine Squamous Epithelial Cells Occasional /LPF Urine Bacteria Occasional /HPF (NONE) Urine Mucus Few /LPF (NONE/OCC) H Urine Opiates Screen Negative (NEGATIVE) Urine Barbiturates Screen Negative (NEGATIVE) Phencyclidine (PCP) Screen Negative (NEGATIVE) Urine Amphetamines Screen Negative (NEGATIVE) Urine Benzodiazepines Screen Negative (NEGATIVE) Urine Cocaine Screen Negative (NEGATIVE) Urine Marijuana (THC) Screen Negative (NEGATIVE) Gato Zayas MD Sep 03, 2019 10:57
[2019-09-03] MEDS ORDERED: Lexiscan 0.4mg/5ml syringe IV SCH (11:00)
[2019-09-03 12:00] VITALS: BP 125/75
--- NOTE | 2019-09-03 12:10 | NUR ---
NURSE NOTES: S/W PATIENT REGARDING SCHEDULED LEXISCAN. PER PATIENT HE IS IN AGREEMENT WITH PROCEDURE BEING DONE- HE DOES NOT REQUEST ANY ADDITIONAL RECORDS TO BE OBTAINED AT THIS TIME.
[2019-09-03] MEDS ORDERED: Lexiscan 0.4mg/5ml syringe IV PRN (12:51)
--- NOTE | 2019-09-03 14:01 | Diagnostic Imaging Report ---
Indication: Dyspnea Comparison: 08/27/2019 A single view chest radiograph was obtained. Findings: Sternotomy and pacemaker noted once again. Heart size is normal. Lungs are clear bilaterally. Bones are unremarkable. IMPRESSION: No acute disease
[2019-09-03] MEDS: Docusate 100mg cap ORAL SCH ×2 (14:17→17:45)
--- NOTE | 2019-09-03 14:17 | NUR ---
CASE MANAGEMENT:REVIEW PATIENT WAS DISCHARGE 08/29/19 09/02/19 64 YR OLD MALE BIBA FROM URGENT CARE CC: LT SIDED CHEST PAIN SI: CHEST PAIN 98.7 86 18 146/77 97% ON RA H/H-12.7/38.7 GLUCOSE+113 TROPONIN(-) IS: ASA PO GIVEN DELIVERY REPRESENTATIVE NTG SPRAY X3 DELIVERY REPRESENTATIVE NTG 1" TO CW IV MORPHINE 4MG VENOUS DUPLEX CHEST XRAY :TO TELEMETRY 09/03/19 SI: CHEST PAIN 98.1 66 18 125/75 98% ON RA H/H-12.3/36.3 TROPONIN(-) X2 IS: IVF@60/HR LIPITOR PO QHS FLOMAX PO QHS ELIQUIS PO BID PROSCAR PO QD METFORMIN PO BID IV MORPHINE 2MG Q5HRS PRN : TELEMETRY STATUS DCP: FROM HOME PLAN: STRESS TEST ORDERED ~ PATIENT AGREED SO FAR PATIENT ASKED NURSE TO REMOVE HIS IV FLUIDS SO HE CAN REST AND ALSO MOVE ABOUT FREELY PATIENT CALLED [facility] TO APPEAL HIS DISCHARGE EVEN THOUGH THERE WAS NOT A DISCHARGE ORDER. THIS YARD CLERK SPOKE WITH SUE AT [facility] AND EXPLAINED THAT PATIENT HAS EXHAUSTED ALL OF HIS [facility] PART A BENEFITS. ALSO FAXED EXHAUSTED BENEFITS DOCUMENTATION. [facility] IS LOOKING IN TO THE MATTER. CASE NUMBER [id number]
--- NOTE | 2019-09-03 14:30 | Consultation ---
DATE OF CONSULTATION: 09/03/2019 CARDIOLOGY CONSULTATION CONSULTING PHYSICIAN: Gato Zayas M.D. REFERRING PHYSICIAN: Kevin Kelly D.O. REASON FOR CONSULTATION: Chest pain. HISTORY OF PRESENT ILLNESS: The patient is an gentleman with numerous admissions at multiple different hospitals for chest pain. The patient was just admitted from August 26 to August 28 at [facility] when he refused a stress test. His pacemaker has been interrogated numerous times at multiple different hospitals and has been functioning normally. The patient presented to another urgent care again with chest pain where he received aspirin, nitroglycerin. The patient was transferred to [facility] for further evaluation. REVIEW OF SYSTEMS: Negative other than what was mentioned in the history of present illness. PAST MEDICAL HISTORY: Includes: 1. History of pulmonary embolus, status post open embolectomy. 2. Status post [facility] permanent pacemaker implantation. 3. Sick sinus syndrome. 4. Hyperlipidemia. 5. Glaucoma. 6. Benign prostatic hypertrophy. 7. Diabetes. 8. Degenerative joint disease. FAMILY HISTORY: Noncontributory. SOCIAL HISTORY: Does not smoke or drink alcohol. PHYSICAL EXAMINATION: VITAL SIGNS: Blood pressure of , pulse 62, respirations 18, and temperature 97.2. HEAD AND NECK: Showed no JVD. LUNGS: Clear. CARDIOVASCULAR: Regular S1 and S2 with no gallop or murmur. ABDOMEN: Soft. EXTREMITIES: No pitting edema. LABORATORY AND DIAGNOSTIC DATA: His labs show white count of 5.4, hemoglobin 12.2, hematocrit 36.3, and platelet count 186. Sodium 144, potassium 3.9, BUN of 15, creatinine 1. Troponin is negative. Glucose is 160. ASSESSMENT AND PLAN: 1. Atypical chest pain. We will reschedule the patient for stress test. His urine toxicology screen is negative. His EKGs show no acute ischemic changes. His last echocardiogram was April 30, 2019 that showed EF of 60%, but we will repeat the echocardiogram as well. 2. History of pulmonary embolism, status post open embolectomy. The patient has multiple V/Q scan had been negative. Most recent one in April 2019 at [facility] was also negative. He is on Eliquis 5 mg b.i.d. 3. Hyperlipidemia, on Lipitor. 4. Diabetes, on metformin. 5. Glaucoma. Thank you very much for allowing me to participate in the care of this patient. Please do not hesitate to contact me for any questions regarding my evaluation. Gato Zayas M.D. DR: NATALIE JOB#: [id number] CC:
[2019-09-03 16:00] VITALS: BP 121/69
--- NOTE | 2019-09-03 16:14 | History and Physical Report ---
DATE OF ADMISSION: 09/02/2019 DATE AND TIME SEEN: 09/03/2019 at 2 p.m. METER SETTER: Gato Zayas M.D. CHIEF COMPLAINT: Chest pain. BRIEF HISTORY: This is a 64-year-old male from home with two-day increased chest pressure, intermittent. No radiation. Slight dizzy and weakness. No loss of consciousness. He was seen in urgent care, was sent to [place], diagnosed with above and admitted to telemetry for further care. Currently, calm in bed, slight chest pain. No complaint. REVIEW OF SYSTEMS: Slight chest pain. Slight short of breath. No nausea, vomiting, or diarrhea. PAST MEDICAL HISTORY: Includes diabetes, glaucoma hypercholesterol, and history of PE. PAST SURGICAL HISTORY: Chest surgery. ALLERGIES: Contrast dye and hydromorphone. MEDICATIONS: Include atorvastatin, tamsulosin, apixaban, dorzolamide , finasteride, potassium, morphine, and Zofran. SOCIAL HISTORY: No smoking. No alcohol. No intravenous drug abuse. FAMILY HISTORY: Noncontributory. PHYSICAL EXAMINATION: GENERAL: Calm in bed, oriented x3, in no acute distress. VITAL SIGNS: Temperature 98 degrees, pulse 66, respirations 18, and blood pressure 124/75. CARDIOVASCULAR: No murmur. LUNGS: Distant and clear. ABDOMEN: Bowel sounds positive. Nontender and nondistended. EXTREMITIES: No cyanosis, clubbing, or edema. NEUROLOGIC: The patient moves all extremities, slightly weak. LABORATORY AND DIAGNOSTIC DATA: Labs at this time show H and H 12/36, otherwise CBC is normal. BMP shows chloride 108, glucose 160. INR is 1.0. Urinalysis, 2+ ketones, 1+ leukocyte esterase. Urine tox is negative. Troponin 0.002. ASSESSMENT: 1. Chest pain, pressure. 2. Urinary tract infection. 3. Anemia. 4. Diabetes. 5. Glaucoma. 6. Hypertension. 7. Chronic obstructive pulmonary disease. 8. Hypercholesterol. 9. History of PE. PLAN: 1. Continue present medications. 2. Troponin q.8 h. x3. 3. EKG in a.m. 4. Antibiotics per Infectious Disease. 5. Hematology followup. 6. CBC and BMP in the morning. 7. Continue to follow this patient. 8. Pain control. Kevin Kelly D.O. DR: AMILCAR JOB#: [id number] CC:
--- NOTE | 2019-09-03 19:39 | NUR ---
HAND-OFF: Report given to Justine Novak RN. Patient stable aware that he is NPO at midnight for stress test tomorrow. Plan of care endorsed.
--- NOTE | 2019-09-03 19:46 | NUR ---
NURSE NOTES: Received report from KOREY Browne and Patito RN. Patient is awake lying semi-barraza's reading a book; resting comfortably. No signs of acute distress noted; complains of pain. AOx4; able to make needs known. Ambulates independently. Checked IV site; patent and flushed. No erythema, bleeding, or infiltration noted. Bed at lowest position, brakes on, siderails up x2. Call light within reach. Will continue to monitor.
[2019-09-03 20:00] VITALS: BP 105/70
[2019-09-03] MEDS: Tamsulosin 0.4mg cap ORAL SCH (20:28)
[2019-09-04] VITALS: BP 118/73
[2019-09-04] MEDS: D5 1/2NS 1,000 ML IV SCH ×2 (01:04→14:02)
[2019-09-04] MEDS: Morphine Sulfate 2mg/ml Inj(IV/IM USE ONLY) IVP PRN ×3 (01:47→20:45)
[2019-09-04 04:00] VITALS: BP 106/78
[2019-09-04 04:41] LABS: BASOPHILS % (AUTO) 1.2 % (0.0-2.0); HEMATOCRIT 37.5 % (42.0-52.0); HEMOGLOBIN 12.3 G/DL (14.2-18.0); LYMPHOCYTES % (AUTO) 25.3 % (20.0-45.0); MEAN CORPUSCULAR VOLUME 82 FL (80-99); MONOCYTES % (AUTO) 12.2 % (1.0-10.0); NEUTROPHILS % (AUTO) 57.4 % (45.0-75.0); PLATELET COUNT 169 K/UL (150-450); RED BLOOD COUNT 4.56 M/UL (4.70-6.10); RED CELL DISTRIBUTION WIDTH 14.7 % (11.6-14.8); WHITE BLOOD COUNT 5.3 K/UL (4.8-10.8)
[2019-09-04 04:50] LABS: ANION GAP 9 mmol/L (5-15); BLOOD UREA NITROGEN 16 mg/dL (7-18); CALCIUM 9.6 MG/DL (8.5-10.1); CARBON DIOXIDE 25 MMOL/L (21-32); CHLORIDE 109 MMOL/L (98-107); POTASSIUM 4.1 MMOL/L (3.5-5.1); SODIUM 143 MMOL/L (136-145)
--- NOTE | 2019-09-04 07:47 | NUR ---
HAND-OFF: Report given to KOREY Calvillo. Patient is awake in the bathroom. In stable condition. Endorsed to oncoming shift RN regarding patient's stress test procedure later today; verbalized understanding.
[2019-09-04 08:00] VITALS: BP 128/78
[2019-09-04] MEDS: Cosopt Opth Soln 10 mL Btl BOTH EYES SCH ×2 (09:00→18:39)
[2019-09-04] MEDS: Brimonidine 0.2% Opth Sol BOTH EYES SCH ×3 (09:00→18:39)
[2019-09-04] MEDS: Docusate 100mg cap ORAL SCH ×2 (09:41→18:39)
[2019-09-04] MEDS: metFORMIN 500mg tab ORAL SCH ×2 (09:41→18:39)
[2019-09-04] MEDS: Eliquis 5mg tablet ORAL SCH ×2 (09:41→18:39)
--- NOTE | 2019-09-04 11:00 | General Progress Note ---
Assessment/Plan Problem List: (1) COPD (chronic obstructive pulmonary disease) ICD Codes: J44.9 - COPD (chronic obstructive pulmonary disease) SNOMED: 42755752 (2) Acute coronary syndrome ICD Codes: I20.0 - Acute coronary syndrome SNOMED: 951758084 (3) HTN (hypertension) ICD Codes: I10 - Essential (primary) hypertension SNOMED: 41021279 (4) Hx pulmonary embolism ICD Codes: Z86.711 - Hx pulmonary embolism SNOMED: 749217509 (5) Diabetes mellitus ICD Codes: E11.9 - Type 2 diabetes mellitus without complications SNOMED: 91115999 Status: unchanged Assessment/Plan: pt diet pain control cardio f/u stress test cbc bmp am Subjective Constitutional: Reports: weakness Allergies: Coded Allergies: HYDROMORPHONE (Verified Allergy, Unknown, 09/02/19) Uncoded Allergies: CONTRAST DYE (Allergy, Unknown, 03/15/19) All Systems: reviewed and negative except above Subjective sl pain in iv site Objective Last 24 Hour Vital Signs Date Time Temp Pulse Resp B/P (MAP) Pulse Ox O2 Delivery O2 Flow Rate FiO2 09/04/19 08:00 97.7 107 20 128/78 (95) 99 09/04/19 04:00 97.5 68 18 106/78 (87) 96 09/04/19 04:00 68 09/04/19 00:00 62 09/04/19 00:00 97.7 64 18 118/73 (88) 100 09/03/19 21:00 Room Air 09/03/19 20:00 68 09/03/19 20:00 97.2 61 18 105/70 (82) 99 09/03/19 16:00 60 09/03/19 16:00 98.3 60 18 121/69 (86) 98 09/03/19 12:00 98.1 66 18 125/75 (92) 98 09/03/19 12:00 63 09/03/19 11:10 97.2 Intake and Output 09/03/19 09/04/19 19:00 07:00 Intake Total 800 ml 240 ml Balance 800 ml 240 ml Intake Oral 800 ml 240 ml # Voids 5 2 # Bowel Movements 3 Laboratory Tests 09/03/19 12:00: Troponin I 0.000 09/03/19 20:00: Troponin I 0.000 09/04/19 04:28: Troponin I 0.009, White Blood Count 5.3, Red Blood Count 4.56L, Hemoglobin 12.3L , Hematocrit 37.5L, Mean Corpuscular Volume 82, Mean Corpuscular Hemoglobin 27.1 , Mean Corpuscular Hemoglobin Concent 32.9, Red Cell Distribution Width 14.7, Platelet Count 169, Mean Platelet Volume 8.9, Neutrophils (%) (Auto) 57.4, Lymphocytes (%) (Auto) 25.3, Monocytes (%) (Auto) 12.2H, Eosinophils (%) (Auto) 4.0H, Basophils (%) (Auto) 1.2, Sodium Level 143, Potassium Level 4.1, Chloride Level 109H, Carbon Dioxide Level 25, Anion Gap 9, Blood Urea Nitrogen 16, Creatinine 1.0, Estimat Glomerular Filtration Rate > 60, Glucose Level 124H, Calcium Level 9.6 Height (Feet): 5 Height (Inches): 8.00 Weight (Pounds): 196 General Appearance: alert EENT: normal ENT inspection Neck: normal alignment Cardiovascular: normal peripheral pulses, normal rate, regular rhythm Respiratory/Chest: chest wall non-tender, lungs clear, normal breath sounds Abdomen: normal bowel sounds, non tender, soft Extremities: normal inspection Edema: no edema noted Arm (L), no edema noted Arm (R), no edema noted Leg (L), no edema noted Leg (R), no edema noted Pedal (L), no edema noted Pedal (R), no edema noted Generalized Neurologic: responsive, motor weakness Skin: normal pigmentation, warm/dry Kevin Kelly DO Sep 04, 2019 11:00
--- NOTE | 2019-09-04 11:50 | Cardiac Electrophysiology PN ---
Assessment/Plan Assessment/Plan 1. Atypical chest pain. We will reschedule the patient for tread mill stress test today. His urine toxicology screen is negative. His EKGs show no acute ischemic changes. His last echocardiogram was April 30, 2019 that showed EF of 60% 2. History of pulmonary embolism, status post open embolectomy. The patient has multiple V/Q scan had been negative. Most recent one in April 2019 at [facility] was also negative. He is on Eliquis 5 mg b.i.d. 3. S/P [facility] pacer that was interrogated recently and showed Nl Fx 4. Hyperlipidemia, on Lipitor. 5. Diabetes, on metformin. 6. Glaucoma. GLADYS RN and Dr Kelly OK to DC if stress test nonischemic Subjective Subjective Now refusing Lexiscan and asking for treadmill. Remained in SR. electric meter tester helper at bedside Objective Last 24 Hour Vital Signs Date Time Temp Pulse Resp B/P (MAP) Pulse Ox O2 Delivery O2 Flow Rate FiO2 09/04/19 11:31 97.7 09/04/19 09:00 Room Air 09/04/19 08:00 97.7 107 20 128/78 (95) 99 09/04/19 04:00 97.5 68 18 106/78 (87) 96 09/04/19 04:00 68 09/04/19 00:00 62 09/04/19 00:00 97.7 64 18 118/73 (88) 100 09/03/19 21:00 Room Air 09/03/19 20:00 68 09/03/19 20:00 97.2 61 18 105/70 (82) 99 09/03/19 16:00 60 09/03/19 16:00 98.3 60 18 121/69 (86) 98 09/03/19 12:00 98.1 66 18 125/75 (92) 98 09/03/19 12:00 63 Intake and Output 09/03/19 09/04/19 19:00 07:00 Intake Total 800 ml 240 ml Balance 800 ml 240 ml Intake Oral 800 ml 240 ml # Voids 5 2 # Bowel Movements 3 Laboratory Tests Test 09/03/19 12:00 09/03/19 20:00 09/04/19 04:28 Troponin I 0.000 ng/mL (0.000-0.056) 0.000 ng/mL (0.000-0.056) 0.009 ng/mL (0.000-0.056) White Blood Count 5.3 K/UL (4.8-10.8) Red Blood Count 4.56 M/UL (4.70-6.10) L Hemoglobin 12.3 G/DL (14.2-18.0) L Hematocrit 37.5 % (42.0-52.0) L Mean Corpuscular Volume 82 FL (80-99) Mean Corpuscular Hemoglobin 27.1 PG (27.0-31.0) Mean Corpuscular Hemoglobin Concent 32.9 G/DL (32.0-36.0) Red Cell Distribution Width 14.7 % (11.6-14.8) Platelet Count 169 K/UL (150-450) Mean Platelet Volume 8.9 FL (6.5-10.1) Neutrophils (%) (Auto) 57.4 % (45.0-75.0) Lymphocytes (%) (Auto) 25.3 % (20.0-45.0) Monocytes (%) (Auto) 12.2 % (1.0-10.0) H Eosinophils (%) (Auto) 4.0 % (0.0-3.0) H Basophils (%) (Auto) 1.2 % (0.0-2.0) Sodium Level 143 MMOL/L (136-145) Potassium Level 4.1 MMOL/L (3.5-5.1) Chloride Level 109 MMOL/L (98-107) H Carbon Dioxide Level 25 MMOL/L (21-32) Anion Gap 9 mmol/L (5-15) Blood Urea Nitrogen 16 mg/dL (7-18) Creatinine 1.0 MG/DL (0.55-1.30) Estimat Glomerular Filtration Rate > 60 mL/min (>60) Glucose Level 124 MG/DL (74-106) H Calcium Level 9.6 MG/DL (8.5-10.1) Objective HEAD AND NECK: No JVD. LUNGS: Clear. CARDIOVASCULAR: Regular S1 and S2 with no gallop or murmur. ABDOMEN: Soft. EXTREMITIES: No pitting edema. Gato Zayas MD Sep 04, 2019 11:50
[2019-09-04 12:00] VITALS: BP 111/64
--- NOTE | 2019-09-04 14:08 | NUR ---
CASE MANAGEMENT:REVIEW 09/03/19 SI: ATYPICAL CHEST PAIN 98.1 60 18 111/64 98% ON RA H/H-12.3/37.5 GLUCOSE+124 IS: FLOMAX PO QHS ELIQUIS PO BID METFORMIN PO BID IVF@60/HR : TELEMETRY STATUS DCP: HOME PLAN: YESTERDAY PATIENT AGREED TO LEXISCAN STRESS TEST ~ TODAY HE IS ASKING FOR A TREADMILL
--- NOTE | 2019-09-04 14:14 | NUR ---
DISCHARGE PLANNING WAITING TO HEAR FROM [facility] PROVIDED WRITTEN DOCUMENTATION YESTERDAY CONFIRMING EXHAUSTED MEDICARE PART A CASE NUMBER ASSIGNED IS ~ [place] [id number]
--- NOTE | 2019-09-04 14:17 | NUR ---
Attempted to bring patient to nuclear medicine department for final scan of Myocardial Perfusion scan/nuclear stress test. The patient is refusing to come for the last scan. The purpose for the final scan was explained and the importance of the final scan was emphasized. Still the patient refuses and is now becoming hostile. Informed KOREY Calvillo and night court magistrate Evelyn.
--- NOTE | 2019-09-04 14:50 | NUR ---
P.T Note: P.T evaluation completed. See P.T evaluation for full report. Pt is alert, O to self, place but not to time. Pt follows commands appropriately. No c/o pain. Pt is currently functional baseline independent in all areas of ADL/functional activities and gait/locomotion w/o AD needed. Skilled P.T service not needed at this time. DC P.T services. Thank you for this referral.
--- NOTE | 2019-09-04 14:51 | NUR ---
DISCHARGE APPEAL THIS RUBBER TUBING SPLICER RECEIVED CALL FROM SAMARA AT [facility] STATING PATIENT CANNOT APPEAL HIS DISCHARGE BECAUSE HE HAS EXHAUSTED HIS MEDICARE PART A. SAMARA ALSO CALLED MR MUÑOZ AND INFORMED HIM PATIENT IS HERE UNDER [place] WHICH THERE IS NOT A APPEAL PROCESS ONCE DISCHARGE ORDER IS WRITTEN PATIENT NEEDS TO LEAVE THE HOSPITAL WITH OR WITHOUT THE ASSISTANCE OF SECURITY
--- NOTE | 2019-09-04 15:31 | NUR ---
patient refused to do his last step of cardiac stress test dr. Lima made aware Addendum: 09/04/19 at 1752 by TRINIDAD VELASQUEZ RN RN PER DR. LIMA IT IS OK TO DISCHARGE THE PATIENT SINCE HE REFUSED STRESS TEST. MADE AWARE . PATIENT NOTED THAT HE WANTS TO STAY AND DO HIS STRESS TEST TOMORROW. DR. JOHAN PARKER MADE AWARE.
[2019-09-04 16:00] VITALS: BP 128/78
--- NOTE | 2019-09-04 16:06 | NUR ---
*-*INSURANCE *-* ALL CLINICALS AND REVIEWS HAVE BEEN FAXED TO: [employer] Pat no ref# ph# [phone] fax# [phone]
--- NOTE | 2019-09-04 16:11 | Diagnostic Imaging Report ---
Indication: Chest pain. Technique: The study was conducted under the supervision of a wilderness guide. 10.3 mCi of technetium 99m Myoview was intravenously injected. Three plane SPECT imaging of the heart was then performed. Patient underwent exercise treadmill stress test but refused the subsequent SPECT imaging. FINDINGS: The study is incomplete. Only the resting SPECT images performed. The images show attenuation of inferior wall. IMPRESSION: Incomplete exam
--- NOTE | 2019-09-04 19:36 | NUR ---
NURSE NOTES: Received report from KOREY Calvillo. Patient is asleep lying semi-barraza's; resting comfortably. Arousable to verbal and tactile stimuli. No signs of acute distress noted; complains of pain. AOx4; able to make needs known. Ambulates independently. Checked IV site; occluded. Will re-establish new IV access at a later time. Bed at lowest position, brakes on, siderails up x2. Call light within reach. Will continue to monitor.
[2019-09-04 20:00] VITALS: BP 101/65
--- NOTE | 2019-09-04 20:41 | NUR ---
NURSE NOTES: Called Dr. Kelly to inform him that patient has been adamantly refusing D5 1/2NS fluids. Received new order to discontinue D5 1/2NS order. Noted and carried out.
[2019-09-04] MEDS: Tamsulosin 0.4mg cap ORAL SCH (20:46)
[2019-09-05] VITALS: BP 110/67
[2019-09-05] MEDS: Morphine Sulfate 2mg/ml Inj(IV/IM USE ONLY) IVP PRN (01:49)
--- NOTE | 2019-09-05 03:06 | NUR ---
NURSE NOTES: Patient is awake lying semi-barraza's using his cellphone. No signs of acute distress noted; denies pain at this time.
[2019-09-05 04:00] VITALS: BP 108/67
[2019-09-05 06:51] LABS: EOSINOPHILS % (AUTO) 2.5 % (0.0-3.0); HEMATOCRIT 36.4 % (42.0-52.0); LYMPHOCYTES % (AUTO) 26.6 % (20.0-45.0); MEAN CORPUSCULAR VOLUME 83 FL (80-99); MONOCYTES % (AUTO) 9.7 % (1.0-10.0); NEUTROPHILS % (AUTO) 60.2 % (45.0-75.0); PLATELET COUNT 177 K/UL (150-450); RED BLOOD COUNT 4.42 M/UL (4.70-6.10); RED CELL DISTRIBUTION WIDTH 14.4 % (11.6-14.8)
--- NOTE | 2019-09-05 07:15 | NUR ---
HAND-OFF: Report given to KOREY Calvillo. Patient is asleep lying semi-barraza's; resting comfortably. In stable condition.
[2019-09-05 07:30] LABS: ANION GAP 8 mmol/L (5-15); BLOOD UREA NITROGEN 16 mg/dL (7-18); CALCIUM 8.9 MG/DL (8.5-10.1); CARBON DIOXIDE 23 MMOL/L (21-32); CHLORIDE 107 MMOL/L (98-107); CREATININE 1.2 MG/DL (0.55-1.30); POTASSIUM 3.8 MMOL/L (3.5-5.1); SODIUM 138 MMOL/L (136-145)
[2019-09-05 08:00] VITALS: BP 102/62
--- NOTE | 2019-09-05 08:05 | NUR ---
DISCHARGE PLANNING LATE ENTRY RECEIVED VMM FROM [facility] STATING PATIENT CALLED TO ASK FOR A RECONSIDERATION OF HIS APPEAL. THEY SAID THEY EXPLAINED TO HIM HIS CASE HAS BEEN CLOSED BECAUSE HE EXHAUSTED ALL OF HIS MEDICARE DAYS AND CAN NO LONGER APPEAL HIS DISCHARGES.
--- NOTE | 2019-09-05 08:50 | General Progress Note ---
Assessment/Plan Problem List: (1) COPD (chronic obstructive pulmonary disease) ICD Codes: J44.9 - COPD (chronic obstructive pulmonary disease) SNOMED: 25205229 (2) Acute coronary syndrome ICD Codes: I20.0 - Acute coronary syndrome SNOMED: 822572313 (3) HTN (hypertension) ICD Codes: I10 - Essential (primary) hypertension SNOMED: 38470253 (4) Hx pulmonary embolism ICD Codes: Z86.711 - Hx pulmonary embolism SNOMED: 396829013 (5) Diabetes mellitus ICD Codes: E11.9 - Type 2 diabetes mellitus without complications SNOMED: 23301698 Status: stable, progressing Assessment/Plan: pt diet pain control cardio f/u stress test cbc bmp am dc plan Subjective Constitutional: Reports: weakness Allergies: Coded Allergies: HYDROMORPHONE (Verified Allergy, Unknown, 09/02/19) Uncoded Allergies: CONTRAST DYE (Allergy, Unknown, 03/15/19) All Systems: reviewed and negative except above Subjective sl pain in iv site Objective Last 24 Hour Vital Signs Date Time Temp Pulse Resp B/P (MAP) Pulse Ox O2 Delivery O2 Flow Rate FiO2 09/05/19 08:00 97.5 62 19 102/62 (75) 98 09/05/19 04:00 97.3 72 18 108/67 (81) 97 09/05/19 04:00 63 09/05/19 00:00 97.6 76 16 110/67 (81) 97 09/05/19 00:00 69 09/04/19 21:00 Room Air 09/04/19 20:00 97.2 70 16 101/65 (77) 96 09/04/19 20:00 69 09/04/19 16:00 60 09/04/19 16:00 96.4 107 20 128/78 (95) 99 09/04/19 12:00 98.1 60 18 111/64 (80) 98 09/04/19 12:00 92 09/04/19 11:31 97.7 09/04/19 09:00 Room Air Intake and Output 09/04/19 09/05/19 19:00 07:00 Intake Total 480 ml 240 ml Balance 480 ml 240 ml Intake Oral 480 ml 240 ml # Voids 4 2 Laboratory Tests 09/04/19 20:00: Troponin I 0.004 09/05/19 05:30: White Blood Count 6.0, Red Blood Count 4.42L, Hemoglobin 12.0L, Hematocrit 36.4L , Mean Corpuscular Volume 83, Mean Corpuscular Hemoglobin 27.1, Mean Corpuscular Hemoglobin Concent 32.9, Red Cell Distribution Width 14.4, Platelet Count 177, Mean Platelet Volume 8.1, Neutrophils (%) (Auto) 60.2, Lymphocytes (% ) (Auto) 26.6, Monocytes (%) (Auto) 9.7, Eosinophils (%) (Auto) 2.5, Basophils ( %) (Auto) 1.0, Sodium Level 138, Potassium Level 3.8, Chloride Level 107, Carbon Dioxide Level 23, Anion Gap 8, Blood Urea Nitrogen 16, Creatinine 1.2, Estimat Glomerular Filtration Rate > 60, Glucose Level 135H, Calcium Level 8.9 Height (Feet): 5 Height (Inches): 8.00 Weight (Pounds): 196 General Appearance: alert EENT: normal ENT inspection Neck: normal alignment Cardiovascular: normal peripheral pulses, normal rate, regular rhythm Respiratory/Chest: chest wall non-tender, lungs clear, normal breath sounds Abdomen: normal bowel sounds, non tender, soft Extremities: normal inspection Edema: no edema noted Arm (L), no edema noted Arm (R), no edema noted Leg (L), no edema noted Leg (R), no edema noted Pedal (L), no edema noted Pedal (R), no edema noted Generalized Neurologic: responsive, motor weakness Skin: normal pigmentation, warm/dry Kevin Kelly DO Sep 05, 2019 08:50
[2019-09-05] MEDS: metFORMIN 500mg tab ORAL SCH (09:03)
[2019-09-05] MEDS: Docusate 100mg cap ORAL SCH (09:03)
[2019-09-05] MEDS: Eliquis 5mg tablet ORAL SCH (09:04)
[2019-09-05] MEDS: Cosopt Opth Soln 10 mL Btl BOTH EYES SCH (09:07)
[2019-09-05] MEDS: Brimonidine 0.2% Opth Sol BOTH EYES SCH (09:08)
--- NOTE | 2019-09-05 09:18 | NUR ---
CASE MANAGEMENT:REVIEW 09/05/19 SI: ATYPICAL CHEST PAIN 97.5 62 19 102/62 98% ON RA H/H-12.0/36.4 GLUCOSE+135 IS: FLOMAX PO QHS ELIQUIS PO BID METFORMIN PO BID PROSCAR PO QD IV MORPHINE 2MG Q5HRS PRN : TELEMETRY STATUS DCP: HOME PLAN: YESTERDAY PATIENT AGREED TO LEXISCAN STRESS TEST WHICH IS DONE IN 3 PARTS TWO PARTS WERE COMPLETED AND PATIENT THEN REFUSED THE THIRD PART AND REQUESTED A TREADMILL STRESS TEST TO BE DONE TODAY. PATIENT HAS FILED 2 MEDICARE APPEALS DURING THIS STAY AND TWICE [facility]RI HAS INFORMED HIM THAT HE HAS EXHAUSTED ALL OF HIS MEDICARE BENEFITS SO HE CANNOT APPEAL HIS DISCHARGE. PATIENT FREQUENTS MULTIPLE HOSPITALS AND ONCE ADMITTED REFUSES CARE EXCEPT FOR THE MORPHINE PLAN IS TO DISCHARGE TODAY
--- NOTE | 2019-09-05 09:30 | NUR ---
*-*INSURANCE *-* ALL CLINICALS AND REVIEWS HAVE BEEN FAXED TO: YAMILTE Steele no ref# PH: [phone] FAX: [phone]
--- NOTE | 2019-09-05 11:13 | Cardiac Electrophysiology PN ---
Assessment/Plan Assessment/Plan 1. Atypical chest pain. Refused Lexiscan. Rescheduled for tread mill stress test but again refused Post stress nuclear imaging. His EKGs show no acute ischemic changes. Has had multiple stress tests in the past that have been negative. His last echocardiogram was April 30, 2019 that showed EF of 60% 2. History of pulmonary embolism, status post open embolectomy. The patient has multiple V/Q scan had been negative. Most recent one in April 2019 at [facility] was also negative. He is on Eliquis 5 mg b.i.d. 3. S/P [facility] pacer that was interrogated recently and showed Nl Fx 4. Hyperlipidemia, on Lipitor. 5. Diabetes, on metformin. 6. Glaucoma. 7. Non compliant and system abuser. Has been to 5 hospitals in last month GLADYS RN and Dr Robin NOVOA to [place] Subjective Subjective Refusing Lexiscan and had treadmill but again refused the nuclear images after the stress test. Remained in SR. Objective Last 24 Hour Vital Signs Date Time Temp Pulse Resp B/P (MAP) Pulse Ox O2 Delivery O2 Flow Rate FiO2 09/05/19 09:00 Room Air 09/05/19 08:00 68 09/05/19 08:00 97.5 62 19 102/62 (75) 98 09/05/19 04:00 97.3 72 18 108/67 (81) 97 09/05/19 04:00 63 09/05/19 00:00 97.6 76 16 110/67 (81) 97 09/05/19 00:00 69 09/04/19 21:00 Room Air 09/04/19 20:00 97.2 70 16 101/65 (77) 96 09/04/19 20:00 69 09/04/19 16:00 60 09/04/19 16:00 96.4 107 20 128/78 (95) 99 09/04/19 12:00 98.1 60 18 111/64 (80) 98 09/04/19 12:00 92 09/04/19 11:31 97.7 Intake and Output 09/04/19 09/05/19 19:00 07:00 Intake Total 480 ml 240 ml Balance 480 ml 240 ml Intake Oral 480 ml 240 ml # Voids 4 2 Laboratory Tests Test 09/04/19 20:00 09/05/19 05:30 Troponin I 0.004 ng/mL (0.000-0.056) White Blood Count 6.0 K/UL (4.8-10.8) Red Blood Count 4.42 M/UL (4.70-6.10) L Hemoglobin 12.0 G/DL (14.2-18.0) L Hematocrit 36.4 % (42.0-52.0) L Mean Corpuscular Volume 83 FL (80-99) Mean Corpuscular Hemoglobin 27.1 PG (27.0-31.0) Mean Corpuscular Hemoglobin Concent 32.9 G/DL (32.0-36.0) Red Cell Distribution Width 14.4 % (11.6-14.8) Platelet Count 177 K/UL (150-450) Mean Platelet Volume 8.1 FL (6.5-10.1) Neutrophils (%) (Auto) 60.2 % (45.0-75.0) Lymphocytes (%) (Auto) 26.6 % (20.0-45.0) Monocytes (%) (Auto) 9.7 % (1.0-10.0) Eosinophils (%) (Auto) 2.5 % (0.0-3.0) Basophils (%) (Auto) 1.0 % (0.0-2.0) Sodium Level 138 MMOL/L (136-145) Potassium Level 3.8 MMOL/L (3.5-5.1) Chloride Level 107 MMOL/L (98-107) Carbon Dioxide Level 23 MMOL/L (21-32) Anion Gap 8 mmol/L (5-15) Blood Urea Nitrogen 16 mg/dL (7-18) Creatinine 1.2 MG/DL (0.55-1.30) Estimat Glomerular Filtration Rate > 60 mL/min (>60) Glucose Level 135 MG/DL (74-106) H Calcium Level 8.9 MG/DL (8.5-10.1) Objective HEAD AND NECK: No JVD. LUNGS: Clear. CARDIOVASCULAR: Regular S1 and S2 with no gallop or murmur. ABDOMEN: Soft. EXTREMITIES: No pitting edema. Gato Zayas MD Sep 05, 2019 11:13
[2019-09-05] MEDS ORDERED: D5 1/2NS 1000ml IV ONE (12:56)
--- NOTE | 2019-09-05 13:52 | NUR ---
patient discharged with all his belonging as ordered. vital signs stable. no c/o pain. iv cath removed per protocol.
--- NOTE | 2019-09-07 16:23 | Discharge Summary ---
Discharge Summary Discharge Summary _ DATE OF ADMISSION: 09/02/2019 DATE OF DISCHARGE: 09/05/2019 DISCHARGED BY: Dr. Kevin Kelly CONSULTANTS: Dr. Gato Zayas BRIEF HOSPITAL COURSE: Patient is a 64-year-old male, from home, presented to ED due to increased intermittent chest pressure x2 days. There was no radiation. He reported slight dizziness and weakness. No loss of consciousness. He was seen at an urgent care and was sent to [place] for further evaluation. He has medical history of diabetes, glaucoma, hypercholesterolemia and PE on Eliquis. Upon evaluation at ED, vital signs were stable. Blood work did not show any leukocytosis. Hemoglobin 13 and hematocrit 38. Electrolytes were normal. Troponin was negative. proBNP was 31. Urinalysis negative. Urine toxicology screen negative. EKG showed nonspecific ST-T wave changes with atrial enlargement. Chest x-ray showed sternotomy and pacemaker. No acute disease. He was given aspirin and nitroglycerin in the field without any relief. Unable to perform CTA because he is allergic to contrast dye. PE less likely. Patient was then admitted for evaluation of chest pain. He underwent cardiac evaluation. Patient had numerous admissions at multiple different hospitals for chest pain. He was recently admitted to [place] and refused a stress test. His pacemaker has been interrogated numerous times at multiple different hospitals and has been functioning normally. Last echocardiogram done on April 30, 2019 showed EF of 60%. He was continued on Eliquis. He was given Lipitor. Blood glucose was monitored, he was continued on metformin. Cardiac enzymes were negative. Patient refused Lexiscan and requested for a treadmill stress test. He was to be scheduled for a treadmill stress test, but again refused post stress nuclear imaging. Patient was cleared for discharge. FINAL DIAGNOSES: Atypical chest pain. Refused Lexiscan. Refused to complete treadmill stress test. History of PE, status post open embolectomy, on Eliquis 5 mg twice daily Status post [facility] pacer that was interrogated recently and showed normal function Hyperlipidemia Diabetes Glaucoma Noncompliant and system abuser COPD DISPOSITION: Patient was discharged home. DISCHARGE MEDICATIONS: Refer to Discharge Medication List. DISCHARGE INSTRUCTIONS: Follow-up in a week. I have been assigned to complete a discharge summary on this account, I was not involved with the patient's management.--BERNA Carreon Jacqueline Robles NP Sep 07, 2019 16:23
--- NOTE | 2019-09-09 11:46 | Coder Physician Query ---
Clarification is required for compliance, coding accuracy, and to reflect severity of illness for this patient Dear Dr. Kelly Date: 09/09/2019 [place] Architect/CDS' Name :MarcelaRYLEE BRIEF HOSPITAL COURSE: Patient is a 64-year-old male, from home, presented to ED due to increased intermittent chest pressure x2 days He underwent cardiac evaluation. Patient had numerous admissions at multiple different hospitals for chest pain. He was recently admitted to [place] and refused a stress test. His pacemaker has been interrogated numerous times at multiple different hospitals and has been functioning normally. Last echocardiogram done on April 30, 2019 showed EF of 60%. He was continued on Eliquis. He was given Lipitor. Blood glucose was monitored, he was continued on metformin. Cardiac enzymes were negative. Patient refused Lexiscan and requested for a treadmill stress test. He was to be scheduled for a treadmill stress test, but again refused post stress nuclear imaging. FINAL DIAGNOSES: Atypical chest pain. Refused Lexiscan. Refused to complete treadmill stress test. Please document the suspected etiology of Chest Pain: [] Aortic dissection [] Acute myocardial infarction [] Acute Coronary Syndrome [] Pericarditis [] Anxiety [] Cancer [] Pneumonia [] Costochondritis [] Pneumothorax [] GERD/Esophagitis [] Pulmonary embolism [] Other: [] Unable to determine Kevin Kelly D.O. Date & Time Please also document in your Progress Notes and/or Discharge Summary and indicate if the condition was present on admission. MINE
== END 2019-09-05 12:57 | disposition home or self-care (01) | DRG 203 ==
LOC: EDBD 21:07 → EDUNIT# 21:07 → EMR 21:15 → 2E 22:00 → EDBEDREQ 22:05
DX: R07.89 Other chest pain (principal); N39.0 Urinary tract infection, site not specified; E11.9 Type 2 diabetes mellitus without complications; J44.9 Chronic obstructive pulmonary disease, unspecified; Z88.6 Allergy status to analgesic agent; Z91.041 Radiographic dye allergy status; H40.9 Unspecified glaucoma; Z86.711 Personal history of pulmonary embolism; Z95.0 Presence of cardiac pacemaker; E78.5 Hyperlipidemia, unspecified; Z91.19 Patient's noncompliance with other medical treatment and regimen; Z79.84 Long term (current) use of oral hypoglycemic drugs; N40.0 Benign prostatic hyperplasia without lower urinary tract symptoms; M19.90 Unspecified osteoarthritis, unspecified site
CPT/HCPCS: 36415; 71045; 78451; 80048; 80053; 80307; 81003; 82550; 83880; 84484; 85025; 85610; 85730; 93005; 93017; 93970; 96374; 96375; 99285; J2405; J2785

== ENCOUNTER 2019-09-26 14:43 | Inpatient (IN) | payer MEDICARE, MEDICAID ==
[~2019-09-26] VITALS: Ht 172.7 cm; Wt 88.9 kg
[2019-09-26 14:30] VITALS: BP 156/67
--- NOTE | 2019-09-26 14:44 | NUR ---
ED Nurse Note: PT. AAOX4. AMBULATORY. WALKED IN TO ER FROM HOME. PT. WALKED IN TO ER FROM HOME. PER PT. HE HAS BEEN HAVING CP AND SOB X 4 HRS NOW.
--- NOTE | 2019-09-26 15:15 | NUR ---
ED Nurse Note: pt outside in tent #1
--- NOTE | 2019-09-26 15:25 | NUR ---
ED Nurse Note: xray at bedside
--- NOTE | 2019-09-26 15:45 | NUR ---
ED Nurse Note: pt moved to E. pt brought all belongings.
--- NOTE | 2019-09-26 15:50 | NUR ---
ED Nurse Note: ERPA at bedside
[2019-09-26 16:16] LABS: APPEARANCE,URINE CLEAR; BILIRUBIN, URINE NEGATIVE (NEGATIVE); COLOR,URINE PALE YELLOW; GLUCOSE, URINE (UA) NEGATIVE (NEGATIVE); KETONES,URINE NEGATIVE (NEGATIVE); LEUKOCYTE ESTERASE ,URINE 2+ (NEGATIVE); NITRITE,URINE NEGATIVE (NEGATIVE); PH,URINE 5 (4.5-8.0); PROTEIN,URINE 1+ (NEGATIVE); UROBILINOGEN,URINE NORMAL MG/DL (0.0-1.0)
--- NOTE | 2019-09-26 16:20 | NUR ---
ED Nurse Note: after multiple attempts by various RNs, lab was called for blood draw d/t failed attempts
--- NOTE | 2019-09-26 16:30 | NUR ---
ED Nurse Note: pt states having active chest pain, ERMD aware. Aspirin ordered and given. pt tolerated well
--- NOTE | 2019-09-26 16:30 | NUR ---
ED Nurse Note: NTG 1 tab administered SL, pt tolerated well. initial VS 149/100, HR 84. After administration VS: 114/73 HR 78. Pt stated pain still present, second tab administered. pt tolerated well. After administration HR 72. NO ss of distress noted. Pt stated that pain is relieved
[2019-09-26] MEDS ORDERED: Aspirin Baby 81mg ORAL ONE (16:45)
--- NOTE | 2019-09-26 16:58 | Diagnostic Imaging Report ---
Indication: Shortness of breath Technique: One view of the chest Comparison: 09/02/2019 Findings: There is a left chest bifocal pacemaker. The lungs and pleural spaces are clear. Heart size is normal. There are median sternotomy sutures. Findings are unchanged Impression: No acute process
[2019-09-26 17:11] LABS: BASOPHILS % (AUTO) 1.2 % (0.0-2.0); EOSINOPHILS % (AUTO) 1.7 % (0.0-3.0); HEMATOCRIT 41.7 % (42.0-52.0); LYMPHOCYTES % (AUTO) 18.4 % (20.0-45.0); MEAN CORPUSCULAR VOLUME 85 FL (80-99); MONOCYTES % (AUTO) 8.5 % (1.0-10.0); NEUTROPHILS % (AUTO) 70.2 % (45.0-75.0); PLATELET COUNT 197 K/UL (150-450); RED BLOOD COUNT 4.92 M/UL (4.70-6.10); RED CELL DISTRIBUTION WIDTH 16.4 % (11.6-14.8); WHITE BLOOD COUNT 9.2 K/UL (4.8-10.8)
[2019-09-26 17:17] LABS: INR 0.9 (0.9-1.1)
[2019-09-26 17:25] LABS: ANION GAP 10 mmol/L (5-15); BLOOD UREA NITROGEN 15 mg/dL (7-18); CALCIUM 9.5 MG/DL (8.5-10.1); CARBON DIOXIDE 26 MMOL/L (21-32); CHLORIDE 104 MMOL/L (98-107); POTASSIUM 4.6 MMOL/L (3.5-5.1); SODIUM 140 MMOL/L (136-145)
[2019-09-26 17:36] LABS: ALANINE AMINOTRANSFERASE 22 U/L (12-78); ALBUMIN 4.1 G/DL (3.4-5.0); ALBUMIN/GLOBULIN RATIO 1.2 (1.0-2.7); ALKALINE PHOSPHATASE 77 U/L (46-116); ASPARTATE AMINO TRANSFERASE 17 U/L (15-37); BILIRUBIN,TOTAL 0.4 MG/DL (0.2-1.0)
--- NOTE | 2019-09-26 18:10 | Emergency Room Report ---
History of Present Illness General Chief Complaint: Chest Pain Present Illness HPI 64-year-old male with history of CHF, PE, and pacemaker here complaining of few hours of sudden onset of left-sided chest pain without radiation. Reports that the pain started as he was resting. Denies any exertion. Patient has been [place] [facility] multiple times for chest pain, is requesting to be admitted. Patient keeps calling primary doctor and stating that she is not getting. Blood draw had to be done by the coding compliance specialist from the laboratories patient is a hard stick. Denies any dizziness and headache at this time. Patient is currently on Eliquis. Last VQ scan was done April 2019 and within normal limits. Patient was evaluated by , funeral home director when was admitted to [facility] a few months ago and was cleared. Sitting comfortably with stable vital signs. No unilateral or generalized weakness noted. Neurovascularly intact. Denies abdominal pain, nausea vomiting, cough and congestion. (Julian Biswas) Allergies: Coded Allergies: HYDROMORPHONE (Verified Allergy, Unknown, 09/02/19) Uncoded Allergies: CONTRAST DYE (Allergy, Unknown, 03/15/19) IODINE CONTRAST (Allergy, Unknown, 09/26/19) COVID-19 Screening Contact w/high risk pt: No Recent Travel to affected area: No Experienced COVID-19 symptoms?: Yes COVID-19 symptoms experienced: Shortness of Breath (Julian Biswas) Patient History Past Medical History: see triage record Past Surgical History: none Pertinent Family History: none Immunizations: UTD Reviewed Nursing Documentation: PMH: Agreed; PSxH: Agreed (Julian Biswas) Nursing Documentation-PMH Hx Cardiac Problems: Yes - [place]/2017, glaucoma Hx Hypertension: Yes Hx Pacemaker: Yes Hx Asthma: No Hx COPD: Yes Hx Diabetes: Yes Hx Cancer: No Hx Gastrointestinal Problems: No Hx Dialysis: No Hx Neurological Problems: No Hx Cerebrovascular Accident: No Hx Seizures: No (Julian Biswas) Review of Systems All Other Systems: negative except mentioned in HPI (Julian Biswas) Physical Exam Vital Signs Date Time Temp Pulse Resp B/P (MAP) Pulse Ox O2 Delivery O2 Flow Rate FiO2 09/26/19 14:30 76 20 Room Air 09/26/19 14:30 98.6 156/67 (96 98 Sp02 EP Interpretation: reviewed, normal General Appearance: no apparent distress, alert, GCS 15, non-toxic Head: normocephalic, atraumatic Eyes: bilateral eye normal inspection, bilateral eye PERRL ENT: hearing grossly normal, normal pharynx, no angioedema, normal voice Neck: full range of motion, supple/symm/no masses Respiratory: chest non-tender, lungs clear, normal breath sounds, no rhonchi, no retraction, no wheezing, speaking full sentences Gastrointestinal: non tender, soft Rectal: deferred Genitourinary: no CVA tenderness Musculoskeletal: back normal Neurologic: alert, motor strength/tone normal, oriented x3, sensory intact, responsive, speech normal Psychiatric: judgement/insight normal, memory normal, mood/affect normal, no suicidal/homicidal ideation Skin: no rash Lymphatic: no adenopathy (Julian Biswas) Medical Decision Making PA Attestation All diagnoses and treatment plans were reviewed and discussed with my supervising physician Dr. Fierro (Julian Biswas) PA Attestation I participate in the care of this patient along with JERRELL Mcmillan Briefly, this is a 64-year-old male history of CHF status post pacemaker and PE currently on anticoagulants presenting for evaluation of chest pain. Symptoms began earlier today and are persistent. EKG unchanged from previous, chest x- ray unremarkable and initial troponin is within normal limits. Patient has multiple risk factors for cardiac disease and will be admitted for ACS rule out. Will admit to his previously admitting physician, Dr. Kelly, for continuity of care. Aspirin was given. Vital signs remained stable. (John Fierro MD) Diagnostic Impression: Primary Impression: Chest pain ER Course 64-year-old male with history of CHF, PE, and pacemaker here complaining of few hours of sudden onset of left-sided chest pain without radiation. Reports that the pain started as he was resting. Denies any exertion. Patient has been [place] ER multiple times for chest pain, is requesting to be admitted. Patient keeps calling primary doctor and stating that she is not getting. Blood draw had to be done by the coding compliance specialist from the laboratories patient is a hard stick. Denies any dizziness and headache at this time. Patient is currently on Eliquis. Last VQ scan was done April 2019 and within normal limits. Patient was evaluated by , funeral home director when was admitted to [facility] a few months ago and was cleared. Sitting comfortably with stable vital signs. No unilateral or generalized weakness noted. Neurovascularly intact. Denies abdominal pain, nausea vomiting, cough and congestion. Ddx considered but are not limited to: [place], Angina, COPD, GERD, Vital signs: are WNL, pt. is afebrile H&PE are most consistent with chest pain status post pacemaker ORDERS: EKG, Chest XR, cardiac labs(troponin, CBC, CMP,BNP), PT, PTT ED INTERVENTIONS: Aspirin Patient was admitted with diagnosis of chest pain to Dr. Kelly under supervision of : Sri pt stable at time of admission (Julian Biswas) EKG Diagnostic Results Rate: normal Rhythm: NSR ST Segments: no acute changes Other Impression No acute ST changes, no changes in comparison to the most recent EKG (Julian Biswas) Chest X-Ray Diagnostic Results Chest X-Ray Diagnostic Results : Chest X-Ray Ordered: Yes # of Views/Limited/Complete: 1 View Indication: Chest Pain EP Interpretation: Yes PA Xray: Interpretation reviewed, by supervising MD, and agrees with findings. Interpretation: no consolidation, no effusion, no pneumothorax Impression: No acute disease Electronically Signed by: Julian Martinez PA-C (Julian Biswas) Last Vital Signs Date Time Temp Pulse Resp B/P (MAP) Pulse Ox O2 Delivery O2 Flow Rate FiO2 09/26/19 14:30 98.6 76 20 156/67 98 Room Air (Julian Biswas) Disposition: ADMITTED INPATIENT Condition: Stable Referrals: NOT CHOSEN IPA/,REFERRING (PCP) Julian Biswas Sep 26, 2019 18:10 John Fierro MD Sep 26, 2019 19:56
[2019-09-26] MEDS ORDERED: Nitroglycerin Subl 0.4mg tab SL ONE (18:15)
--- NOTE | 2019-09-26 18:30 | NUR ---
ED Nurse Note: ERPA ordered NTG, medication pulled and given to pt x 2 times. pt VSS stable. ERMD aware
--- NOTE | 2019-09-26 19:27 | NUR ---
ED Nurse Note: Report given to KOREY Diaz. Responsibilty assumed. pt vss, resting in bed. no ss of distress noted.
--- NOTE | 2019-09-26 19:50 | NUR ---
ED Nurse Note: informed the patient about the need of having an IV catheter, states that he wants an IV when patient goes inside his room.
[2019-09-26 22:15] VITALS: BP 152/88
--- NOTE | 2019-09-26 23:50 | NUR ---
NURSE NOTES: ADMITTED 64 YEAR OLD MALE TO ROOM 204 BED 2 VIA GURNEY FROM EMERGENCY DEPARTMENT WITH DIAGNOSIS CHEST PAIN; UNDER THE CARE OF DR. Marcio PAKRER. PATIENT AWAKE, ALERT/ORIENTED X4, CURRENT CHEST PAIN 5/10, TOLERABLE. NO SIGNS AND SYMPTOMS OF ACUTE CARDIO RESPIRATORY DISTRESS, DENIES SHORTNESS OF BREATH, LUNGS CLEAR TO AUSCULTATION, NO PERIPHERAL EDEMA NOTED, SINUS RHYTHM ON FACSIMILE OPERATOR. NO IV ACCESS, PATIENT STATED "I AM A HARD STICK, I NEED AN EXPERT". ABDOMEN SOFT/NON DISTENDED/NON TENDER/AUDIBLE BOWEL SOUNDS, DENIES N/V/D. ORIENTATED PATIENT TO ROOM/ENVIRONMENT. SIDE RAILS UP X2, BED IN LOWEST POSITION FOR SAFETY, ENCOURAGED PATIENT TO UTILIZE CALL LIGHT FOR ASSISTANCE, VERBALIZED UNDERSTANDING. NAD.
--- NOTE | 2019-09-26 23:55 | NUR ---
TRANSFER TO FLOOR: Patient transferred to Telemetry as ordered, per . Report given to KOREY Dai
[2019-09-27 01:00] VITALS: BP 113/66
[2019-09-27] MEDS ORDERED: dilTIAZem HCl 25mg/5ml Inj IV PRN (02:00)
[2019-09-27] MEDS ORDERED: Miralax 17gm pkt ORAL PRN (02:00)
[2019-09-27] MEDS ORDERED: Nitroglycerin Subl 0.4mg tab SL PRN (02:00)
[2019-09-27] MEDS ORDERED: Albuterol/Ipratropium 3ml neb HHN PRN (02:00)
[2019-09-27] MEDS ORDERED: Enalaprilat 2.5mg/2ml Inj IV PRN (02:00)
[2019-09-27 04:00] VITALS: BP 124/76
--- NOTE | 2019-09-27 06:20 | NUR ---
NURSE NOTES: RESTED WELL, NO SIGNIFICANT CHANGE OF CONDITION NOTED THROUGHOUT THE NIGHT. SAFETY MAINTAINED. NAD.
[2019-09-27 08:00] VITALS: BP 112/58
--- NOTE | 2019-09-27 08:27 | NUR ---
NURSE NOTES: Patient received from Ashlee GANDARA. Patient stable sleeping comfortably in bed. No s/sx of distress. RR even and unlabored. Side rails up x2, call light within reach, bed low and locked. Will continue to monitor.
[2019-09-27] MEDS: Aspirin Baby 81mg ORAL SCH (09:24)
[2019-09-27] MEDS: Eliquis 5mg tablet ORAL SCH ×2 (09:25→21:09)
[2019-09-27 12:00] VITALS: BP 120/68
[2019-09-27] MEDS: Brimonidine 0.2% Opth Sol BOTH EYES SCH ×2 (15:02→18:20)
[2019-09-27 16:00] VITALS: BP 109/68
--- NOTE | 2019-09-27 16:32 | Cardiac Electrophysiology PN ---
Assessment/Plan Assessment/Plan 1. Atypical chest pain. Refused Lexiscan 2 weeks ago. Rescheduled for tread mill stress test but again refused on 09/04/2019 Ruled out for [place] again. Reschedule for stress test again His EKGs show no acute ischemic changes. Has had multiple stress tests in the past that have been negative. His echocardiogram today showed EF of 60% 2. History of pulmonary embolism, status post open embolectomy. The patient has multiple V/Q scan had been negative. Most recent one in April 2019 at [facility] was also negative. He is on Eliquis 5 mg b.i.d. 3. S/P [facility] pacer that was interrogated recently and showed Nl Fx 4. Hyperlipidemia, on Lipitor. 5. Diabetes, on metformin. 6. Glaucoma. 7. Non compliant and system abuser. GLADYS RN and Dr Kelly Subjective Subjective The patient is a 64-year-old gentleman with history of hypertension, history of DVT and pulmonary embolism, status post open pulmonary embolectomy many years ago as well as sick sinus syndrome, had undergone [facility] permanent pacemaker implantation in the past. The patient has numerous hospitalizations with chest pains at multiple different hospitals. This is his 3rd admission to [place] in last one month. The patient presented to the hospital again with chest pain, radiating to the arm and dizziness and shortness of breath. Cardiology consultation was obtained for further evaluation and management. Objective Last 24 Hour Vital Signs Date Time Temp Pulse Resp B/P (MAP) Pulse Ox O2 Delivery O2 Flow Rate FiO2 09/27/19 12:00 70 09/27/19 12:00 73 09/27/19 12:00 98.2 67 21 120/68 (85) 97 09/27/19 09:00 Room Air 09/27/19 08:00 70 09/27/19 08:00 97.9 70 20 112/58 (76) 96 09/27/19 04:00 Room Air 09/27/19 04:00 71 09/27/19 04:00 97.9 72 18 124/76 (92) 96 09/27/19 01:30 68 09/27/19 01:00 98.1 68 18 113/66 (82) 98 09/27/19 00:15 Room Air 09/26/19 23:55 98.6 73 20 148/82 98 Room Air 09/26/19 22:15 98.6 76 20 152/88 98 Room Air 09/26/19 20:00 71 09/26/19 18:35 149/100 Intake and Output 09/26/19 09/27/19 19:00 07:00 Intake Total 480 ml Balance 480 ml Intake Oral 480 ml # Voids 2 Laboratory Tests Test 09/26/19 16:30 09/27/19 05:44 White Blood Count 9.2 K/UL (4.8-10.8) Red Blood Count 4.92 M/UL (4.70-6.10) Hemoglobin 13.0 G/DL (14.2-18.0) L Hematocrit 41.7 % (42.0-52.0) L Mean Corpuscular Volume 85 FL (80-99) Mean Corpuscular Hemoglobin 26.4 PG (27.0-31.0) L Mean Corpuscular Hemoglobin Concent 31.1 G/DL (32.0-36.0) L Red Cell Distribution Width 16.4 % (11.6-14.8) H Platelet Count 197 K/UL (150-450) Mean Platelet Volume 11.8 FL (6.5-10.1) H Neutrophils (%) (Auto) 70.2 % (45.0-75.0) Lymphocytes (%) (Auto) 18.4 % (20.0-45.0) L Monocytes (%) (Auto) 8.5 % (1.0-10.0) Eosinophils (%) (Auto) 1.7 % (0.0-3.0) Basophils (%) (Auto) 1.2 % (0.0-2.0) Prothrombin Time 10.1 SEC (9.30-11.50) Prothromb Time International Ratio 0.9 (0.9-1.1) Activated Partial Thromboplast Time 30 SEC (23-33) Sodium Level 140 MMOL/L (136-145) Potassium Level 4.6 MMOL/L (3.5-5.1) Chloride Level 104 MMOL/L (98-107) Carbon Dioxide Level 26 MMOL/L (21-32) Anion Gap 10 mmol/L (5-15) Blood Urea Nitrogen 15 mg/dL (7-18) Creatinine 1.0 MG/DL (0.55-1.30) Estimat Glomerular Filtration Rate > 60 mL/min (>60) Glucose Level 106 MG/DL (74-106) Calcium Level 9.5 MG/DL (8.5-10.1) Total Bilirubin 0.4 MG/DL (0.2-1.0) Aspartate Amino Transf (AST/SGOT) 17 U/L (15-37) Alanine Aminotransferase (ALT/SGPT) 22 U/L (12-78) Alkaline Phosphatase 77 U/L (46-116) Troponin I 0.011 ng/mL (0.000-0.056) 0.010 ng/mL (0.000-0.056) Pro-B-Type Natriuretic Peptide 115 pg/mL (0-125) Total Protein 7.4 G/DL (6.4-8.2) Albumin 4.1 G/DL (3.4-5.0) Globulin 3.3 g/dL Albumin/Globulin Ratio 1.2 (1.0-2.7) Objective HEAD AND NECK: No JVD. LUNGS: Clear. CARDIOVASCULAR: Regular S1 and S2 with no gallop or murmur. ABDOMEN: Soft. EXTREMITIES: No pitting edema. Gato Zayas MD Sep 27, 2019 16:32
[2019-09-27] MEDS ORDERED: Lexiscan 0.4mg/5ml syringe IV PRN (16:45)
[2019-09-27] MEDS: Cosopt Opth Soln 10 mL Btl BOTH EYES SCH (18:20)
--- NOTE | 2019-09-27 18:34 | Consultation ---
History of Present Illness General Date patient seen: Sep 27, 2019 Time patient seen: 16:00 Chief Complaint: Chest Pain Referring physician: Dr Kelly Reason for Consultation: pulm consult, extemsive pulm histry, chest pain Present Illness HPI 64 years old male with past medical history of COPD, history of pulmonary embolism, status post thrombectomy, status post IVC filter, on chronic anticoagulation, coronary artery disease with history of NE 2017, glaucoma bilateral eyes, enlarged prostate pacemaker presented with sudden onset of left-sided chest pain without radiation. Pain started when patient was rested. He denied any exertion. He denied dizziness and headache. Last VQ scan was done in April 2019 and was stable. Upon evaluation vital signs were stable. Laboratory work-up revealed no leukocytosis ,hemoglobin 13, hematocrit 41.7, platelet count 187. Stable electrolytes and renal parameters. Troponin 0.011, repeated 0.01. pro BNP 115. Urine toxicology screen was negative. Urinalysis revealed no evidence of urinary tract infection , +1 protein. Chest x-ray demonstrated no acute process. Patient subsequently admitted for work-up for chest pain. C Allergies: Coded Allergies: HYDROMORPHONE (Verified Allergy, Unknown, 09/02/19) Uncoded Allergies: CONTRAST DYE (Allergy, Unknown, 03/15/19) IODINE CONTRAST (Allergy, Unknown, 09/26/19) Medication History Scheduled Apixaban (Eliquis), 5 MG PO BID, (Reported) Atorvastatin (Lipitor), 10 MG ORAL DAILY, (Reported) Brimonidine Tartrate* (Alphagan*), 1 DROP BOTH EYES TID, (Reported) Dorzolamide HCl/Timolol Maleat (Dorzolamide-Timolol Eye Drops), 1 DROP BOTH EYES TWICE A DAY, (Reported) Dorzolamide/Timolol/Pf (Cosopt Pf Eye Drops), 1 EACH OP BID, (Reported) Finasteride* (Proscar*), 5 MG ORAL DAILY, (Reported) Metformin Hcl* (Metformin Hcl*), 500 MG ORAL TWICE A DAY, (Reported) Tamsulosin Hcl (Tamsulosin Hcl*), 0.4 MG ORAL BEDTIME, (Reported) Travoprost (Benzalkonium) (Travatan 0.004% Eye Drop), 1 DROP BOTH EYES BEDTIME, (Reported) Patient History Healthcare decision maker SELF, ROSCOE MUÑOZ Resuscitation status Full Code Advanced Directive on File N/A Past Medical/Surgical History Past Medical/Surgical History: (1) DVT (deep venous thrombosis) (2) DDD (degenerative disc disease), lumbar (3) Pacemaker malfunction (4) COPD (chronic obstructive pulmonary disease) (5) Acute coronary syndrome (6) Lumbar spondylosis (7) Ventricular mural thrombus (8) HTN (hypertension) (9) Hx pulmonary embolism (10) Diabetes mellitus (11) 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 (12) Glaucoma (13) Chronic anticoagulation Review of Systems Constitutional: Reports: weakness Eye: Reports: other - bilateral glaucoma ENT: Reports: no symptoms Respiratory: Reports: no symptoms Cardiovascular: Reports: see HPI Genitourinary: Reports: no symptoms Musculoskeletal: Reports: no symptoms Skin: Reports: no symptoms Psychiatric: Reports: no symptoms Neurological: Reports: no symptoms Endocrine: Reports: no symptoms Hematologic/Lymphatic: Reports: no symptoms Physical Exam General Appearance: WD/WN, no apparent distress Lines, tubes and drains: peripheral HEENT: normocephalic, atraumatic, anicteric, mucous membranes moist, other - R eye blind Neck: non-tender, supple Respiratory/Chest: chest wall non-tender, lungs clear, no accessory muscle use Cardiovascular/Chest: normal rate Abdomen: normal bowel sounds, non tender, soft Extremities: normal range of motion, non-tender, no calf tenderness Skin Exam: warm/dry Neurologic: specimen technician II-XII grossly normal, no motor/sensory deficits, alert, oriented x 3, responsive Musculoskeletal: normal muscle bulk Last 24 Hour Vital Signs Date Time Temp Pulse Resp B/P (MAP) Pulse Ox O2 Delivery O2 Flow Rate FiO2 09/27/19 12:00 70 09/27/19 12:00 73 09/27/19 12:00 98.2 67 21 120/68 (85) 97 09/27/19 09:00 Room Air 09/27/19 08:00 70 09/27/19 08:00 97.9 70 20 112/58 (76) 96 09/27/19 04:00 Room Air 09/27/19 04:00 71 09/27/19 04:00 97.9 72 18 124/76 (92) 96 09/27/19 01:30 68 09/27/19 01:00 98.1 68 18 113/66 (82) 98 09/27/19 00:15 Room Air 09/26/19 23:55 98.6 73 20 148/82 98 Room Air 09/26/19 22:15 98.6 76 20 152/88 98 Room Air 09/26/19 20:00 71 09/26/19 18:35 149/100 Intake and Output 09/26/19 09/27/19 19:00 07:00 Intake Total 480 ml Balance 480 ml Intake Oral 480 ml # Voids 2 Laboratory Tests Test 09/27/19 05:44 Troponin I 0.010 ng/mL (0.000-0.056) Height (Feet): 5 Height (Inches): 8.00 Weight (Pounds): 196 Medications Current Medications Medications (Trade) Dose Ordered Sig/Kristan Route PRN Reason Start Time Stop Time Status Last Admin Dose Admin Acetaminophen (Tylenol) 650 mg Q4H PRN ORAL FEVER 09/27/19 02:00 10/27/19 01:59 Albuterol/ Ipratropium (Albuterol/ Ipratropium) 3 ml Q4H PRN HHN Shortness of Breath 09/27/19 02:00 10/02/19 01:59 Apixaban (Eliquis) 5 mg BID@0900,2100 ORAL 09/27/19 09:00 12/26/19 08:59 09/27/19 09:25 Aspirin (ASA) 162 mg DAILY ORAL 09/27/19 09:00 11/11/19 08:59 09/27/19 09:24 Atorvastatin Calcium (Lipitor) 10 mg DAILY ORAL 09/27/19 09:00 12/26/19 08:59 09/27/19 09:26 Brimonidine Tartrate (Alphagan) 1 drop TID BOTH EYES 09/27/19 13:00 12/26/19 12:59 09/27/19 18:20 Diltiazem HCl (Cardizem) 10 mg Q1H PRN IV heart rate more than 120, 09/27/19 02:00 10/27/19 01:59 Dorzolamide/ Timolol (Cosopt) 1 drop TWICE A DAY BOTH EYES 09/27/19 18:00 10/27/19 17:59 09/27/19 18:20 Enalaprilat (Vasotec) 2.5 mg Q6H PRN IV sbp more than 160 09/27/19 02:00 10/27/19 01:59 Finasteride (Proscar) 5 mg DAILY ORAL 09/27/19 09:00 12/26/19 08:59 09/27/19 09:25 Latanoprost (Xalatan) 1 drop BEDTIME BOTH EYES 09/27/19 21:00 10/27/19 20:59 Nitroglycerin (Ntg) 0.4 mg Q5M PRN SL Prn Chest Pain 09/27/19 02:00 10/27/19 01:59 Ondansetron HCl (Zofran) 4 mg Q6H PRN IVP Nausea & Vomiting 09/27/19 02:00 10/27/19 01:59 Polyethylene Glycol (Miralax) 17 gm DAILYPRN PRN ORAL Constipation 09/27/19 02:00 10/27/19 01:59 Regadenoson (Lexiscan) 0.4 mg ONCE PRN IV stress test 09/27/19 16:45 09/30/19 16:44 Tamsulosin HCl (Flomax) 0.4 mg BEDTIME ORAL 09/27/19 21:00 10/27/19 20:59 Temazepam (Restoril) 15 mg HSPRN PRN ORAL Insomnia 09/27/19 02:00 10/04/19 01:59 Assessment/Plan Assessment/Plan: ASSESSMENT Atypical vhest pain COPD Hx of PE, s/p IVC filter and open embolectomy Chronic anticoagulation DM HLD s/ pacemaker Glaucoma Recurrent admissions PLAN OF CARE tele serial troponin - NGT, ECG no acute ischemic changes, ruled out for acute NE cardio on board CP atypical as per cardio O2 HHN prn resume Eliguis monitor HH, no evidence of bleeding resume home meds case discussed and evaluated by supervising physician case discussed and evaluated by supervising physician Angelica Prakash NP Sep 27, 2019 18:34
--- NOTE | 2019-09-27 19:40 | NUR ---
HAND-OFF: Report given to Malaika GANDARA. Patient stable. Plan of care endorsed.Patient still has no IV
--- NOTE | 2019-09-27 19:56 | Consultation ---
Consult Note Consult Note HPI: 64yo gentleman with PMH CHF, PE, pacemaker presents from home with 4 hrs of L sided pressure chest pain. Pt denies fever, chills, cough, sob, sore throat , congestion, nausea, vomiting, abdominal pain, dysuria, hematuria, rash, body aches, joint pain. No sick contacts. Lives alone. No contact with COVID patients. Had one episode of watery diarrhea last night but none since. ROS per HPI PMH DM COPD Pacemaker HTN PE sp thrombectomy, IVC filter, chronic anticoagulation CAD CT 2016 glaucoma SSS BPH SHx denies cig, etoh, drug use lives alone FHx noncontributory VS reviewed Gen: NAD. well nourished. well hydrated HEENT; anicteric sclera. MMM. no oral thrush. no cervical LAD. chest wall scar CV: S1+S2. RRR. I/ systolic murmur. no rubs or gallop. no LE edema Resp: RRR. no wheezes or crackles. CTAB. Abd: normoactive BS+. Soft. no TTP. nondistended Neuro: AAO. follows commands. answers questions appropriately. Skin: warm. dry. normal pigmentation Psych: nonlabile. affect is mood congruent Labs reviewed Imaging reviewed Assessment Afebrile RA No leukocytosis(lymph percentage is low but absolute count is normal) Unlikely UTI UA negative Unlikely PNA CXR: no acute disease DM COPD Pacemaker HTN PE sp thrombectomy, IVC filter, chronic anticoagulation CAD CT 2016 glaucoma SSS BPH Plan: monitor off abx crp, esr, lactate, ldh monitor temp and CBC monitor resp status GLADYS RN Thank you for this consult. [facility] will continue to follow the patient with you. Dk Cooper MD Sep 27, 2019 19:56
[2019-09-27 20:00] VITALS: BP 102/61
--- NOTE | 2019-09-27 20:00 | NUR ---
NURSE NOTES: RECEIVED PATIENT LYING IN BED, AWAKE, ALERT/ORIENTED X4, DENIES PAIN. NO SIGNS AND SYMPTOMS OF ACUTE CARDIO RESPIRATORY DISTRESS/SHORTNESS OF BREATH, DENIES CHEST PAIN, NO EDEMA NOTED, CONTINUE ON MANAGING MEMBER/SINUS RHYTHM. NO IV SITE, MD AWARE. NO COMPLAINTS OF GI DISCOMFORT, NO N/V/D. SIDE RAILS UP X2 FOR MOBILITY, BED IN LOWEST POSITION FOR SAFETY, ENCOURAGED PATIENT TO UTILIZE CALL LIGHT FOR ASSISTANCE,VERBALIZED UNDERSTANDING. STRESS TEST ON SUNDAY, PATIENT AWARE, NPO AFTER MIDNIGHT SUNDAY. NAD.
[2019-09-27] MEDS ORDERED: Tamsulosin 0.4mg cap ORAL SCH (21:00)
[2019-09-27] MEDS ORDERED: Latanoprost 0.005% Opth 2.5ml Soln BOTH EYES SCH (21:00)
--- NOTE | 2019-09-27 23:15 | Consultation ---
DATE OF CONSULTATION: 09/27/2019 PULMONARY CONSULTATION CONSULTING PHYSICIAN: Bruke Tamayo MD. HISTORY OF PRESENT ILLNESS: This is a 64-year-old male with a history of congestive heart failure, pulmonary embolism, and permanent pacemaker. He came to the hospital with left-sided chest pain. The patient has been here multiple times. He has been seen by Dr. Zayas in the past. The patient apparently had a last CT scan done 3 months ago, which was negative. He is currently on Eliquis. He has also seen Dr. Zayas for the same. Based on Dr. Zayas's assessment in late August 2019, the patient was scheduled for a stress test, the urine tox was negative and had atypical chest pain. He has had previous pulmonary embolism, status post open embolectomy, and multiple V/Q scans have since been negative. PAST HISTORY: Also notable for hypertension, pulmonary embolism, diabetes mellitus, chronic anticoagulation, history of ventricular mural thrombus, permanent pacemaker, previous pacemaker malfunction. CURRENT MEDICATIONS: Include Eliquis, aspirin, Lipitor, eyedrops, Cardizem, DuoNeb, Proscar, Flomax. ALLERGIES: To contrast dye, hydromorphone, and iodine. REVIEW OF SYSTEMS: Denies any headaches, hematemesis, melena, or hematochezia. PHYSICAL EXAMINATION: GENERAL: Reveals a 64-year-old male. VITAL SIGNS: Blood pressure 112/60, heart rate 74, respirations 16, afebrile. HEENT: Unremarkable. LUNGS: Clear breath sounds bilaterally. ABDOMEN: Soft. LABORATORY DATA: Lab testing shows hemoglobin 13, otherwise normal CBC and BMP. Troponin negative x3. Toxicology is negative. Urinalysis negative. Imaging studies, as discussed above, shows pacemaker in place and clear lung owen. IMPRESSION: 1. Atypical chest pain. 2. History of permanent pacemaker. 3. History of previous pulmonary embolism, status post embolectomy. DISCUSSION: Admit to the hospital. Predominant care by Cardiology. Pulmonary status is stable. He is saturating well at room air. We will follow carefully. Jeanie Flores JOB#: [id number] CC:
[2019-09-28] VITALS: BP 111/65
[2019-09-28 04:00] VITALS: BP 115/67
--- NOTE | 2019-09-28 06:00 | NUR ---
NURSE NOTES: RESTED WELL, NO SIGNIFICANT CHANGE OF CONDITION NOTED THROUGHOUT THE NIGHT. SAFETY MAINTAINED. NAD.
--- NOTE | 2019-09-28 07:29 | NUR ---
HAND-OFF: Report given to KOREY MEJIA.
[2019-09-28 07:30] LABS: BASOPHILS % (AUTO) 0.7 % (0.0-2.0); EOSINOPHILS % (AUTO) 2.9 % (0.0-3.0); HEMATOCRIT 36.9 % (42.0-52.0); MEAN CORPUSCULAR VOLUME 81 FL (80-99); MONOCYTES % (AUTO) 12.7 % (1.0-10.0); NEUTROPHILS % (AUTO) 60.7 % (45.0-75.0); PLATELET COUNT 168 K/UL (150-450); RED BLOOD COUNT 4.53 M/UL (4.70-6.10); RED CELL DISTRIBUTION WIDTH 14.4 % (11.6-14.8); WHITE BLOOD COUNT 5.6 K/UL (4.8-10.8)
[2019-09-28 07:46] LABS: ANION GAP 10 mmol/L (5-15); BLOOD UREA NITROGEN 17 mg/dL (7-18); CALCIUM 8.7 MG/DL (8.5-10.1); CARBON DIOXIDE 23 MMOL/L (21-32); CHLORIDE 108 MMOL/L (98-107); POTASSIUM 4.2 MMOL/L (3.5-5.1); SODIUM 141 MMOL/L (136-145)
--- NOTE | 2019-09-28 07:50 | NUR ---
NURSE NOTES: Patient received from Ashlee GANDARA. Patient stable AOx4 ambulated to restroom and requested two gowns.No complaints and no s/sx of distress. RR even and unlabored on RA. Side rails up x2, call light within reach, bed low and locked. Will continue to monitor.
[2019-09-28 07:55] LABS: INR 0.9 (0.9-1.1)
[2019-09-28 08:00] VITALS: BP 121/73
[2019-09-28 08:13] LABS: CHOLESTEROL 198 MG/DL (< 200); HDL CHOLESTEROL 45 MG/DL (40-60); TRIGLYCERIDES 93 MG/DL (30-150)
--- NOTE | 2019-09-28 09:01 | General Progress Note ---
Assessment/Plan Problem List: (1) DDD (degenerative disc disease), lumbar ICD Codes: M51.36 - DDD (degenerative disc disease), lumbar SNOMED: 80204574 (2) DVT (deep venous thrombosis) ICD Codes: I82.409 - DVT (deep venous thrombosis) SNOMED: 994044327 (3) Acute coronary syndrome ICD Codes: I20.0 - Acute coronary syndrome SNOMED: 800418234 (4) HTN (hypertension) ICD Codes: I10 - Essential (primary) hypertension SNOMED: 57152995 (5) Diabetes mellitus ICD Codes: E11.9 - Type 2 diabetes mellitus without complications SNOMED: 45706982 (6) Chest pain ICD Codes: R07.9 - Chest pain, unspecified SNOMED: 42366588 Status: stable, progressing Assessment/Plan: bp pain control cardio f/u cbc bmp am Subjective Constitutional: Reports: weakness Allergies: Coded Allergies: HYDROMORPHONE (Verified Allergy, Unknown, 09/02/19) Uncoded Allergies: CONTRAST DYE (Allergy, Unknown, 03/15/19) IODINE CONTRAST (Allergy, Unknown, 09/26/19) All Systems: reviewed and negative except above Subjective calm in bed sl chest pain Objective Last 24 Hour Vital Signs Date Time Temp Pulse Resp B/P (MAP) Pulse Ox O2 Delivery O2 Flow Rate FiO2 09/28/19 04:00 97.5 75 20 115/67 (83) 98 09/28/19 04:00 Room Air 09/28/19 04:00 74 09/28/19 00:00 97.9 79 20 111/65 (80) 99 09/28/19 00:00 Room Air 09/28/19 00:00 71 09/27/19 20:35 Room Air 09/27/19 20:00 85 09/27/19 20:00 85 09/27/19 20:00 97.7 72 20 102/61 (75) 99 09/27/19 16:00 98.1 71 21 109/68 (82) 99 09/27/19 16:00 68 09/27/19 12:00 70 09/27/19 12:00 73 09/27/19 12:00 98.2 67 21 120/68 (85) 97 09/27/19 09:00 Room Air Intake and Output 09/27/19 09/28/19 19:00 07:00 Intake Total 1280 ml 1040 ml Balance 1280 ml 1040 ml Intake Oral 1280 ml 1040 ml # Voids 2 3 Laboratory Tests 09/28/19 06:40: White Blood Count 5.6, Red Blood Count 4.53L, Hemoglobin 12.0L, Hematocrit 36.9L , Mean Corpuscular Volume 81, Mean Corpuscular Hemoglobin 26.4L, Mean Corpuscular Hemoglobin Concent 32.4, Red Cell Distribution Width 14.4, Platelet Count 168, Mean Platelet Volume 10.4H, Neutrophils (%) (Auto) 60.7, Lymphocytes (%) (Auto) 23.0, Monocytes (%) (Auto) 12.7H, Eosinophils (%) (Auto) 2.9, Basophils (%) (Auto) 0.7, Erythrocyte Sedimentation Rate [Pending], Prothrombin Time 9.8, Prothromb Time International Ratio 0.9, Activated Partial Thromboplast Time 29, Sodium Level 141, Potassium Level 4.2, Chloride Level 108H , Carbon Dioxide Level 23, Anion Gap 10, Blood Urea Nitrogen 17, Creatinine 1.0 , Estimat Glomerular Filtration Rate > 60, Glucose Level 124H, Calcium Level 8.7 , Lactate Dehydrogenase 130, Troponin I 0.022, C-Reactive Protein, Quantitative < 0.4, Triglycerides Level 93, Cholesterol Level 198, LDL Cholesterol 122H, HDL Cholesterol 45, Cholesterol/HDL Ratio 4.4, Thyroid Stimulating Hormone (TSH) 0.770 Height (Feet): 5 Height (Inches): 8.00 Weight (Pounds): 196 General Appearance: lethargic EENT: normal ENT inspection Neck: normal alignment Cardiovascular: normal peripheral pulses, normal rate, regular rhythm Respiratory/Chest: chest wall non-tender, lungs clear, normal breath sounds Abdomen: normal bowel sounds, non tender, soft Extremities: normal inspection Edema: no edema noted Arm (L), no edema noted Arm (R), no edema noted Leg (L), no edema noted Leg (R), no edema noted Pedal (L), no edema noted Pedal (R), no edema noted Generalized Neurologic: motor weakness Skin: normal pigmentation, warm/dry Kevin Kelly DO Sep 28, 2019 09:01
[2019-09-28] MEDS: Aspirin Baby 81mg ORAL SCH (09:09)
[2019-09-28] MEDS: Eliquis 5mg tablet ORAL SCH ×2 (09:09→20:43)
[2019-09-28] MEDS: Brimonidine 0.2% Opth Sol BOTH EYES SCH ×3 (09:10→18:00)
[2019-09-28] MEDS: Cosopt Opth Soln 10 mL Btl BOTH EYES SCH ×2 (09:10→18:00)
--- NOTE | 2019-09-28 11:06 | Pulmonology Progress Note ---
Assessment/Plan Assessment/Plan IMPRESSION: 1. Atypical chest pain. 2. History of permanent pacemaker. 3. History of previous pulmonary embolism, status post embolectomy. DISCUSSION: Predominant care by Cardiology. Pulmonary status is stable. He is saturating well at room air. I will follow carefully. Burke Tamayo M.D. Subjective Interval Events: None new Constitutional: Reports: no symptoms HEENT: Repors: no symptoms Respiratory: Reports: no symptoms Cardiovascular: Reports: no symptoms Allergies: Coded Allergies: HYDROMORPHONE (Verified Allergy, Unknown, 09/02/19) Uncoded Allergies: CONTRAST DYE (Allergy, Unknown, 03/15/19) IODINE CONTRAST (Allergy, Unknown, 09/26/19) Objective Last 24 Hour Vital Signs Date Time Temp Pulse Resp B/P (MAP) Pulse Ox O2 Delivery O2 Flow Rate FiO2 09/28/19 09:00 Room Air 09/28/19 08:00 97.3 68 20 121/73 (89) 96 09/28/19 08:00 73 09/28/19 04:00 97.5 75 20 115/67 (83) 98 09/28/19 04:00 Room Air 09/28/19 04:00 74 09/28/19 00:00 97.9 79 20 111/65 (80) 99 09/28/19 00:00 Room Air 09/28/19 00:00 71 09/27/19 20:35 Room Air 09/27/19 20:00 85 09/27/19 20:00 85 09/27/19 20:00 97.7 72 20 102/61 (75) 99 09/27/19 16:00 98.1 71 21 109/68 (82) 99 09/27/19 16:00 68 09/27/19 12:00 70 09/27/19 12:00 73 09/27/19 12:00 98.2 67 21 120/68 (85) 97 Intake and Output 09/27/19 09/28/19 19:00 07:00 Intake Total 1280 ml 1040 ml Balance 1280 ml 1040 ml Intake Oral 1280 ml 1040 ml # Voids 2 3 General Appearance: no acute distress HEENT: normocephalic Respiratory/Chest: chest wall non-tender Cardiovascular: normal peripheral pulses Laboratory Tests 09/28/19 06:40: White Blood Count 5.6, Red Blood Count 4.53L, Hemoglobin 12.0L, Hematocrit 36.9L , Mean Corpuscular Volume 81, Mean Corpuscular Hemoglobin 26.4L, Mean Corpuscular Hemoglobin Concent 32.4, Red Cell Distribution Width 14.4, Platelet Count 168, Mean Platelet Volume 10.4H, Neutrophils (%) (Auto) 60.7, Lymphocytes (%) (Auto) 23.0, Monocytes (%) (Auto) 12.7H, Eosinophils (%) (Auto) 2.9, Basophils (%) (Auto) 0.7, Erythrocyte Sedimentation Rate 7, Prothrombin Time 9.8 , Prothromb Time International Ratio 0.9, Activated Partial Thromboplast Time 29 , Sodium Level 141, Potassium Level 4.2, Chloride Level 108H, Carbon Dioxide Level 23, Anion Gap 10, Blood Urea Nitrogen 17, Creatinine 1.0, Estimat Glomerular Filtration Rate > 60, Glucose Level 124H, Calcium Level 8.7, Lactate Dehydrogenase 130, Troponin I 0.022, C-Reactive Protein, Quantitative < 0.4, Triglycerides Level 93, Cholesterol Level 198, LDL Cholesterol 122H, HDL Cholesterol 45, Cholesterol/HDL Ratio 4.4, Thyroid Stimulating Hormone (TSH) 0.770 Current Medications Medications (Trade) Dose Ordered Sig/Kristan Route PRN Reason Start Time Stop Time Status Last Admin Dose Admin Acetaminophen (Tylenol) 650 mg Q4H PRN ORAL FEVER 09/27/19 02:00 10/27/19 01:59 Albuterol/ Ipratropium (Albuterol/ Ipratropium) 3 ml Q4H PRN HHN Shortness of Breath 09/27/19 02:00 10/02/19 01:59 Apixaban (Eliquis) 5 mg BID@0900,2100 ORAL 09/27/19 09:00 12/26/19 08:59 09/28/19 09:09 Aspirin (ASA) 162 mg DAILY ORAL 09/27/19 09:00 11/11/19 08:59 09/28/19 09:09 Atorvastatin Calcium (Lipitor) 10 mg DAILY ORAL 09/27/19 09:00 12/26/19 08:59 09/28/19 09:09 Brimonidine Tartrate (Alphagan) 1 drop TID BOTH EYES 09/27/19 13:00 12/26/19 12:59 09/28/19 09:10 Diltiazem HCl (Cardizem) 10 mg Q1H PRN IV heart rate more than 120, 09/27/19 02:00 10/27/19 01:59 Dorzolamide/ Timolol (Cosopt) 1 drop TWICE A DAY BOTH EYES 09/27/19 18:00 10/27/19 17:59 09/28/19 09:10 Enalaprilat (Vasotec) 2.5 mg Q6H PRN IV sbp more than 160 09/27/19 02:00 10/27/19 01:59 Finasteride (Proscar) 5 mg DAILY ORAL 09/27/19 09:00 12/26/19 08:59 09/28/19 09:10 Latanoprost (Xalatan) 1 drop BEDTIME BOTH EYES 09/27/19 21:00 10/27/19 20:59 09/27/19 21:10 Nitroglycerin (Ntg) 0.4 mg Q5M PRN SL Prn Chest Pain 09/27/19 02:00 10/27/19 01:59 Ondansetron HCl (Zofran) 4 mg Q6H PRN IVP Nausea & Vomiting 09/27/19 02:00 10/27/19 01:59 Polyethylene Glycol (Miralax) 17 gm DAILYPRN PRN ORAL Constipation 09/27/19 02:00 10/27/19 01:59 Regadenoson (Lexiscan) 0.4 mg ONCE PRN IV stress test 09/27/19 16:45 09/30/19 16:44 Tamsulosin HCl (Flomax) 0.4 mg BEDTIME ORAL 09/27/19 21:00 10/27/19 20:59 09/27/19 21:09 Temazepam (Restoril) 15 mg HSPRN PRN ORAL Insomnia 09/27/19 02:00 10/04/19 01:59 Burke Tamayo MD Sep 28, 2019 11:06
--- NOTE | 2019-09-28 11:57 | NUR ---
HAND-OFF: Report given to Britany Goodson RN. Patient stable. Plan of care endorsed. All belongings with patient. Patient refused IV today. Endorsed that he will need one by tomorrow for stress test.
[2019-09-28 12:00] VITALS: BP 116/58
[2019-09-28] MEDS ORDERED: Lexiscan 0.4mg/5ml syringe IV PRN (12:00)
[2019-09-28] MEDS ORDERED: Nitroglycerin Subl 0.4mg tab SL PRN (12:00)
[2019-09-28] MEDS ORDERED: Enalaprilat 2.5mg/2ml Inj IV PRN (13:00)
[2019-09-28] MEDS ORDERED: Albuterol/Ipratropium 3ml neb HHN PRN (13:00)
--- NOTE | 2019-09-28 13:21 | NUR ---
NURSE NOTES: REPORT RECEIVED FROM SMOOTH NAIR. WALKING ROUNDS DONE. PATIENT AOX4 IN BED. QUESTIONS ANSWERED NEEDS MET AT THIS TIME. DENIES CP. PATIENT STATES IT IS A CHRONIC PROBLEM. DISCUSSED PLAN OF CARE FOR THE REMAINDER OF THE DAY, VERBALIZED UNDERSTANDING. BED IN LOW AND LOCKED POSITION. CALL LIGHT WITHIN REACH.
--- NOTE | 2019-09-28 14:47 | NUR ---
PT note PT bernadette completed. Patient is independent in all aspects of mobility. He does not need any PT intervention at this time. Addendum: 09/28/19 at 1447 by TONY HORTA PT Amended: Links added.
[2019-09-28 16:00] VITALS: BP 105/74
--- NOTE | 2019-09-28 18:52 | NUR ---
NURSE NOTES: PATIENT REMAINS STABLE. UP AMBULATING IN ROOM. DENIES CP THIS EVENING.
--- NOTE | 2019-09-28 19:44 | NUR ---
NURSE NOTES: Received report from KOREY Matute. PT is awake, lying semi-barraza's; comfortably resting. No signs of acute distress noted. Pt denies any pain at this time. AOx4; able to make needs known. No IV site noted. Offgoing RN endorsed that pt refuses to get an IV placed in. Pt is asked again to put an IV but pt still refuses. No erythema, bleeding, or infiltration noted. Bed at lowest position. Brakes on. Siderails up x3. Call light within reach. Will continue to monitor.
--- NOTE | 2019-09-28 19:50 | NUR ---
HAND-OFF: Report given to AUSTIN BECK RN.
[2019-09-28 20:00] VITALS: BP 115/65
--- NOTE | 2019-09-28 20:27 | NUR ---
NURSE NOTES: MD Kelly made aware that pt refuses to have an IV access. mortar maker made aware. is ok with no IV access for now but orders to retry in the am. Order noted and carried out.
[2019-09-28] MEDS: Tamsulosin 0.4mg cap ORAL SCH (20:43)
[2019-09-28] MEDS: Latanoprost 0.005% Opth 2.5ml Soln BOTH EYES SCH (20:43)
[2019-09-29] VITALS: BP 99/58
[2019-09-29 03:36] VITALS: BP 119/63
--- NOTE | 2019-09-29 04:58 | NUR ---
NURSE NOTES: Pt refused to get his morning labs to be drawn as he states "I want to talk to my Doctor about it". RN educated pt about the importance of the labs but pt still insists to talk to the doctor first. system technologist made aware.
--- NOTE | 2019-09-29 07:51 | NUR ---
HAND-OFF: Report given to KOREY Buckley. Pt is sleeping and in stable condition. Plan of care endorsed.
--- NOTE | 2019-09-29 07:58 | NUR ---
NURSE NOTES: Received report from Emily NAIR. Patient is asleep during rounds, no acute distress noted, RR even and unlabored. NPO for cardiac stress test. Per report patient has no IV access and is refused IV insertion. Side rails upx2, bed low and locked, call light within reach. Will continue plan of care.
[2019-09-29 08:00] VITALS: BP 108/66
[2019-09-29] MEDS: Eliquis 5mg tablet ORAL SCH ×2 (09:19→20:04)
[2019-09-29] MEDS: Aspirin Baby 81mg ORAL SCH (09:20)
[2019-09-29] MEDS: Cosopt Opth Soln 10 mL Btl BOTH EYES SCH ×2 (09:20→17:53)
[2019-09-29] MEDS: Brimonidine 0.2% Opth Sol BOTH EYES SCH ×3 (09:27→17:53)
--- NOTE | 2019-09-29 09:27 | General Progress Note ---
Assessment/Plan Problem List: (1) DDD (degenerative disc disease), lumbar ICD Codes: M51.36 - DDD (degenerative disc disease), lumbar SNOMED: 56062823 (2) DVT (deep venous thrombosis) ICD Codes: I82.409 - DVT (deep venous thrombosis) SNOMED: 604835114 (3) Acute coronary syndrome ICD Codes: I20.0 - Acute coronary syndrome SNOMED: 019681711 (4) HTN (hypertension) ICD Codes: I10 - Essential (primary) hypertension SNOMED: 28738887 (5) Diabetes mellitus ICD Codes: E11.9 - Type 2 diabetes mellitus without complications SNOMED: 70955631 (6) Chest pain ICD Codes: R07.9 - Chest pain, unspecified SNOMED: 90882359 Status: stable, progressing Assessment/Plan: bp pain control cardio f/u cbc bmp am pending stress test Subjective Constitutional: Reports: weakness Allergies: Coded Allergies: HYDROMORPHONE (Verified Allergy, Unknown, 09/02/19) Uncoded Allergies: CONTRAST DYE (Allergy, Unknown, 03/15/19) IODINE CONTRAST (Allergy, Unknown, 09/26/19) All Systems: reviewed and negative except above Subjective calm in bed sl chest pain Objective Last 24 Hour Vital Signs Date Time Temp Pulse Resp B/P (MAP) Pulse Ox O2 Delivery O2 Flow Rate FiO2 09/29/19 08:00 97.4 62 16 108/66 (80) 96 09/29/19 03:36 97.8 61 18 119/63 (81) 95 09/29/19 00:00 98.2 62 17 99/58 (72) 97 09/28/19 23:54 80 18 97 Room Air 21 09/28/19 21:00 Room Air 09/28/19 20:00 98.5 68 16 115/65 (82) 98 09/28/19 16:00 97.9 73 18 105/74 (84) 98 09/28/19 12:00 99.0 73 20 116/58 (77) 96 Intake and Output 09/28/19 09/29/19 19:00 07:00 Intake Total 1420 ml 300 ml Balance 1420 ml 300 ml Intake Oral 1420 ml 300 ml # Voids 5 4 # Bowel Movements 2 Height (Feet): 5 Height (Inches): 8.00 Weight (Pounds): 196 General Appearance: alert EENT: normal ENT inspection Neck: normal alignment Cardiovascular: normal peripheral pulses, normal rate, regular rhythm Respiratory/Chest: chest wall non-tender, lungs clear, normal breath sounds Abdomen: normal bowel sounds, non tender, soft Extremities: normal inspection Edema: no edema noted Arm (L), no edema noted Arm (R), no edema noted Leg (L), no edema noted Leg (R), no edema noted Pedal (L), no edema noted Pedal (R), no edema noted Generalized Neurologic: responsive, motor weakness Skin: normal pigmentation, warm/dry Kevin Kelly Sep 29, 2019 09:27
--- NOTE | 2019-09-29 10:02 | NUR ---
NURSE NOTES: Attempted IV access, unable to obtain. Patient refusing further attempts at IV insertion. Called office of Dr. Zayas to inquire if patient still requires stress test (unable to do without IV), awaiting callback.
[2019-09-29 10:05] LABS: BASOPHILS % (AUTO) 1.1 % (0.0-2.0); EOSINOPHILS % (AUTO) 2.7 % (0.0-3.0); HEMATOCRIT 37.1 % (42.0-52.0); HEMOGLOBIN 11.9 G/DL (14.2-18.0); LYMPHOCYTES % (AUTO) 20.8 % (20.0-45.0); MEAN CORPUSCULAR VOLUME 82 FL (80-99); MONOCYTES % (AUTO) 9.7 % (1.0-10.0); NEUTROPHILS % (AUTO) 65.7 % (45.0-75.0); PLATELET COUNT 172 K/UL (150-450); RED BLOOD COUNT 4.53 M/UL (4.70-6.10); RED CELL DISTRIBUTION WIDTH 14.3 % (11.6-14.8); WHITE BLOOD COUNT 6.3 K/UL (4.8-10.8)
--- NOTE | 2019-09-29 10:06 | NUR ---
DISCHARGE PLANNING: PATIENT REFERRED TO [facility] T: [phone] F: [phone] Addendum: 09/29/19 at 1114 by NANCY ARZOLA LVN Patient has been declined to [facility]. [facility] (Yifan) stated NO need for PT eval because no indication of weakness or any functional decline
--- NOTE | 2019-09-29 10:16 | Pulmonology Progress Note ---
Assessment/Plan Assessment/Plan IMPRESSION: 1. Atypical chest pain. 2. History of permanent pacemaker. 3. History of previous pulmonary embolism, status post embolectomy. DISCUSSION: Predominant care by Cardiology. Pulmonary status is stable. He is saturating well at room air. I will follow carefully. Burke Tamayo M.D. Subjective Interval Events: None new Constitutional: Reports: no symptoms HEENT: Repors: no symptoms Respiratory: Reports: no symptoms Cardiovascular: Reports: no symptoms Allergies: Coded Allergies: HYDROMORPHONE (Verified Allergy, Unknown, 09/02/19) Uncoded Allergies: CONTRAST DYE (Allergy, Unknown, 03/15/19) IODINE CONTRAST (Allergy, Unknown, 09/26/19) Objective Last 24 Hour Vital Signs Date Time Temp Pulse Resp B/P (MAP) Pulse Ox O2 Delivery O2 Flow Rate FiO2 09/29/19 09:00 Room Air 09/29/19 08:00 97.4 62 16 108/66 (80) 96 09/29/19 03:36 97.8 61 18 119/63 (81) 95 09/29/19 00:00 98.2 62 17 99/58 (72) 97 09/28/19 23:54 80 18 97 Room Air 21 09/28/19 21:00 Room Air 09/28/19 20:00 98.5 68 16 115/65 (82) 98 09/28/19 16:00 97.9 73 18 105/74 (84) 98 09/28/19 12:00 99.0 73 20 116/58 (77) 96 Intake and Output 09/28/19 09/29/19 19:00 07:00 Intake Total 1420 ml 300 ml Balance 1420 ml 300 ml Intake Oral 1420 ml 300 ml # Voids 5 4 # Bowel Movements 2 General Appearance: no acute distress HEENT: normocephalic Respiratory/Chest: chest wall non-tender Cardiovascular: normal peripheral pulses Abdomen: normal bowel sounds Laboratory Tests 09/29/19 09:50: White Blood Count 6.3, Red Blood Count 4.53L, Hemoglobin 11.9L, Hematocrit 37.1L , Mean Corpuscular Volume 82, Mean Corpuscular Hemoglobin 26.4L, Mean Corpuscular Hemoglobin Concent 32.2, Red Cell Distribution Width 14.3, Platelet Count 172, Mean Platelet Volume 8.6, Neutrophils (%) (Auto) 65.7, Lymphocytes (% ) (Auto) 20.8, Monocytes (%) (Auto) 9.7, Eosinophils (%) (Auto) 2.7, Basophils ( %) (Auto) 1.1, Sodium Level [Pending], Potassium Level [Pending], Chloride Level [Pending], Carbon Dioxide Level [Pending], Blood Urea Nitrogen [Pending], Creatinine [Pending], Estimat Glomerular Filtration Rate [Pending], Glucose Level [Pending], Calcium Level [Pending], Troponin I [Pending] Current Medications Medications (Trade) Dose Ordered Sig/Kristan Route PRN Reason Start Time Stop Time Status Last Admin Dose Admin Acetaminophen (Tylenol) 650 mg Q4H PRN ORAL Mild pain, T>100.5 09/28/19 21:00 10/27/19 12:59 09/28/19 20:53 Albuterol/ Ipratropium (Albuterol/ Ipratropium) 3 ml Q4H PRN HHN Shortness of Breath 09/28/19 13:00 10/02/19 12:59 Apixaban (Eliquis) 5 mg BID@0900,2100 ORAL 09/28/19 21:00 12/26/19 08:59 09/29/19 09:19 Aspirin (ASA) 162 mg DAILY ORAL 09/29/19 09:00 11/11/19 08:59 09/29/19 09:20 Atorvastatin Calcium (Lipitor) 10 mg DAILY ORAL 09/29/19 09:00 12/26/19 08:59 09/29/19 09:19 Brimonidine Tartrate (Alphagan) 1 drop TID BOTH EYES 09/28/19 13:00 12/26/19 12:59 09/29/19 09:27 Dorzolamide/ Timolol (Cosopt) 1 drop TWICE A DAY BOTH EYES 09/28/19 18:00 10/27/19 17:59 09/29/19 09:20 Finasteride (Proscar) 5 mg DAILY ORAL 09/29/19 09:00 12/26/19 08:59 09/29/19 09:19 Latanoprost (Xalatan) 1 drop BEDTIME BOTH EYES 09/28/19 21:00 10/27/19 20:59 09/28/19 20:43 Nitroglycerin (Ntg) 0.4 mg Q5M PRN SL Prn Chest Pain 09/28/19 12:00 10/27/19 01:59 Ondansetron HCl (Zofran) 4 mg Q6H PRN IVP Nausea & Vomiting 09/28/19 13:00 10/27/19 12:59 Polyethylene Glycol (Miralax) 17 gm DAILYPRN PRN ORAL Constipation 09/29/19 13:00 10/27/19 12:59 Regadenoson (Lexiscan) 0.4 mg ONCE PRN IV STRESS TEST 09/28/19 12:00 10/01/19 11:59 Tamsulosin HCl (Flomax) 0.4 mg BEDTIME ORAL 09/28/19 21:00 10/27/19 20:59 09/28/19 20:43 Temazepam (Restoril) 15 mg HSPRN PRN ORAL Insomnia 09/28/19 21:00 10/05/19 20:59 Burke Tamayo MD Sep 29, 2019 10:16
[2019-09-29 10:38] LABS: ANION GAP 10 mmol/L (5-15); BLOOD UREA NITROGEN 11 mg/dL (7-18); CALCIUM 8.9 MG/DL (8.5-10.1); CARBON DIOXIDE 23 MMOL/L (21-32); CHLORIDE 107 MMOL/L (98-107); SODIUM 140 MMOL/L (136-145)
--- NOTE | 2019-09-29 11:40 | Infectious Diseases Prog Note ---
Assessment/Plan Assessment/Plan Assessment Afebrile RA No leukocytosis(lymph percentage is low but absolute count is normal) -LDH, ESR, CRP normal Unlikely UTI UA negative Unlikely PNA CXR: no acute disease Chest pain (upon presentation)- atypical DM COPD Pacemaker HTN PE sp thrombectomy, IVC filter, chronic anticoagulation CAD [place] 2017 glaucoma SSS BPH Plan: monitor off abx monitor temp and CBC monitor resp status DW RN Thank you for this consult. [facility] will continue to follow the patient with you. Dk Cooper MD Sep 27, 2019 19:56 Subjective Allergies: Coded Allergies: HYDROMORPHONE (Verified Allergy, Unknown, 09/02/19) Uncoded Allergies: CONTRAST DYE (Allergy, Unknown, 03/15/19) IODINE CONTRAST (Allergy, Unknown, 09/26/19) Objective Vital Signs Last 24 Hour Vital Signs Date Time Temp Pulse Resp B/P (MAP) Pulse Ox O2 Delivery O2 Flow Rate FiO2 09/29/19 09:00 Room Air 09/29/19 08:00 97.4 62 16 108/66 (80) 96 09/29/19 03:36 97.8 61 18 119/63 (81) 95 09/29/19 00:00 98.2 62 17 99/58 (72) 97 09/28/19 23:54 80 18 97 Room Air 21 09/28/19 21:00 Room Air 09/28/19 20:00 98.5 68 16 115/65 (82) 98 09/28/19 16:00 97.9 73 18 105/74 (84) 98 09/28/19 12:00 99.0 73 20 116/58 (77) 96 Height (Feet): 5 Height (Inches): 8.00 Weight (Pounds): 196 Objective Gen: NAD. well nourished. well hydrated HEENT; anicteric sclera. MMM. no oral thrush. no cervical LAD. chest wall scar CV: S1+S2. RRR. I/ systolic murmur. no rubs or gallop. no LE edema Resp: RRR. no wheezes or crackles. CTAB. Abd: normoactive BS+. Soft. no TTP. nondistended Neuro: AAO. follows commands. answers questions appropriately. Skin: warm. dry. normal pigmentation Laboratory Tests Test 4/13/20 09:50 White Blood Count 6.3 K/UL (4.8-10.8) Red Blood Count 4.53 M/UL (4.70-6.10) L Hemoglobin 11.9 G/DL (14.2-18.0) L Hematocrit 37.1 % (42.0-52.0) L Mean Corpuscular Volume 82 FL (80-99) Mean Corpuscular Hemoglobin 26.4 PG (27.0-31.0) L Mean Corpuscular Hemoglobin Concent 32.2 G/DL (32.0-36.0) Red Cell Distribution Width 14.3 % (11.6-14.8) Platelet Count 172 K/UL (150-450) Mean Platelet Volume 8.6 FL (6.5-10.1) Neutrophils (%) (Auto) 65.7 % (45.0-75.0) Lymphocytes (%) (Auto) 20.8 % (20.0-45.0) Monocytes (%) (Auto) 9.7 % (1.0-10.0) Eosinophils (%) (Auto) 2.7 % (0.0-3.0) Basophils (%) (Auto) 1.1 % (0.0-2.0) Sodium Level 140 MMOL/L (136-145) Potassium Level 4.0 MMOL/L (3.5-5.1) Chloride Level 107 MMOL/L (98-107) Carbon Dioxide Level 23 MMOL/L (21-32) Anion Gap 10 mmol/L (5-15) Blood Urea Nitrogen 11 mg/dL (7-18) Creatinine 1.0 MG/DL (0.55-1.30) Estimat Glomerular Filtration Rate > 60 mL/min (>60) Glucose Level 151 MG/DL (74-106) H Calcium Level 8.9 MG/DL (8.5-10.1) Troponin I 0.004 ng/mL (0.000-0.056) Current Medications Medications (Trade) Dose Ordered Sig/Kristan Route PRN Reason Start Time Stop Time Status Last Admin Dose Admin Acetaminophen (Tylenol) 650 mg Q4H PRN ORAL Mild pain, T>100.5 09/28/19 21:00 10/27/19 12:59 09/28/19 20:53 Albuterol/ Ipratropium (Albuterol/ Ipratropium) 3 ml Q4H PRN HHN Shortness of Breath 09/28/19 13:00 10/02/19 12:59 Apixaban (Eliquis) 5 mg BID@0900,2100 ORAL 09/28/19 21:00 12/26/19 08:59 09/29/19 09:19 Aspirin (ASA) 162 mg DAILY ORAL 09/29/19 09:00 11/11/19 08:59 09/29/19 09:20 Atorvastatin Calcium (Lipitor) 10 mg DAILY ORAL 09/29/19 09:00 12/26/19 08:59 09/29/19 09:19 Brimonidine Tartrate (Alphagan) 1 drop TID BOTH EYES 09/28/19 13:00 12/26/19 12:59 09/29/19 09:27 Dorzolamide/ Timolol (Cosopt) 1 drop TWICE A DAY BOTH EYES 09/28/19 18:00 10/27/19 17:59 09/29/19 09:20 Finasteride (Proscar) 5 mg DAILY ORAL 09/29/19 09:00 12/26/19 08:59 09/29/19 09:19 Latanoprost (Xalatan) 1 drop BEDTIME BOTH EYES 09/28/19 21:00 10/27/19 20:59 09/28/19 20:43 Nitroglycerin (Ntg) 0.4 mg Q5M PRN SL Prn Chest Pain 09/28/19 12:00 10/27/19 01:59 Ondansetron HCl (Zofran) 4 mg Q6H PRN IVP Nausea & Vomiting 09/28/19 13:00 10/27/19 12:59 Polyethylene Glycol (Miralax) 17 gm DAILYPRN PRN ORAL Constipation 09/29/19 13:00 10/27/19 12:59 Regadenoson (Lexiscan) 0.4 mg ONCE PRN IV STRESS TEST 09/28/19 12:00 10/01/19 11:59 Tamsulosin HCl (Flomax) 0.4 mg BEDTIME ORAL 09/28/19 21:00 10/27/19 20:59 09/28/19 20:43 Temazepam (Restoril) 15 mg HSPRN PRN ORAL Insomnia 09/28/19 21:00 10/05/19 20:59 Camilla Pereyra M.D. Sep 29, 2019 11:40
[2019-09-29 12:00] VITALS: BP 102/70
[2019-09-29] MEDS ORDERED: Miralax 17gm pkt ORAL PRN (13:00)
--- NOTE | 2019-09-29 13:00 | NUR ---
NURSE NOTES: Per Dr. Lama, ok to cancel stress test due to inability to obtain IV access on patient. ordered to change to treadmill stress test. Order entered, Aguilar in cardiology notified.
--- NOTE | 2019-09-29 13:39 | NUR ---
CASE MANAGEMENT NOTE PATIENT PRESENTING STABLE DECLINED FROM [facility] ASKED FOR DISCHARGE FROM DR. KEITH PARKER STATED ~ NO
--- NOTE | 2019-09-29 13:43 | NUR ---
CASE MANAGEMENT: INITIAL REVIEW 64YR OLD MALE FROM HOME CC: CHEST PAIN SI: CHEST PAIN 98.6 76 20 156/67 98% ON RA H/H 13.0/41.7 IS: ASPIRIN PO X1 NTG SL X1 CHEST X-RAY-No acute process \: 3E MED SURG UNIT DCP: HOME WHEN STABLE CASE MANAGEMENT: REVIEW 09/29/19 SI: CHEST PAIN 97.4 62 16 108/66 96% ON RA H/H 11.9/37.1 IS: FLOMAX PO QHS PROSCAR PO QD ELIQUIS PO BID ASA PO QD LIPITOR PO QD \: 3E MED SURG UNIT DCP: HOME WHEN STABLE PLAN: NEEDS IV ACCESS STRESS TEST- NEED IV ACCESS STRESS TEST IN AM PENDING DC
--- NOTE | 2019-09-29 13:44 | Cardiac Electrophysiology PN ---
Assessment/Plan Assessment/Plan 1. Atypical chest pain. Refused Lexiscan 2 weeks ago. Rescheduled for [facility] stress test but again refused on 09/04/2019 Ruled out for [place] again. Rescheduled for stress test again but there was no iv. His EKGs show no acute ischemic changes. Has had multiple stress tests in the past that have been negative. His echocardiogram showed EF of 60%. Reschedule for regular treadmill stress test in am pending DC 2. History of pulmonary embolism, status post open embolectomy. The patient has multiple V/Q scan had been negative. Most recent one in April 2019 at [facility] was also negative. He is on Eliquis 5 mg b.i.d. 3. S/P [facility] pacer that was interrogated recently and showed Nl Fx 4. Hyperlipidemia, on Lipitor. 5. Diabetes, on metformin. 6. Glaucoma. 7. Non compliant and system abuser. GLADYS RN Subjective Subjective Stress test cancelled as there was no iv. No new events. Transferred to [facility] Objective Last 24 Hour Vital Signs Date Time Temp Pulse Resp B/P (MAP) Pulse Ox O2 Delivery O2 Flow Rate FiO2 09/29/19 12:00 97.8 71 16 102/70 (81) 96 09/29/19 09:00 Room Air 09/29/19 08:00 97.4 62 16 108/66 (80) 96 09/29/19 03:36 97.8 61 18 119/63 (81) 95 09/29/19 00:00 98.2 62 17 99/58 (72) 97 09/28/19 23:54 80 18 97 Room Air 21 09/28/19 21:00 Room Air 09/28/19 20:00 98.5 68 16 115/65 (82) 98 09/28/19 16:00 97.9 73 18 105/74 (84) 98 Intake and Output 09/28/19 09/29/19 19:00 07:00 Intake Total 1420 ml 300 ml Balance 1420 ml 300 ml Intake Oral 1420 ml 300 ml # Voids 5 4 # Bowel Movements 2 Laboratory Tests Test 09/29/19 09:50 White Blood Count 6.3 K/UL (4.8-10.8) Red Blood Count 4.53 M/UL (4.70-6.10) L Hemoglobin 11.9 G/DL (14.2-18.0) L Hematocrit 37.1 % (42.0-52.0) L Mean Corpuscular Volume 82 FL (80-99) Mean Corpuscular Hemoglobin 26.4 PG (27.0-31.0) L Mean Corpuscular Hemoglobin Concent 32.2 G/DL (32.0-36.0) Red Cell Distribution Width 14.3 % (11.6-14.8) Platelet Count 172 K/UL (150-450) Mean Platelet Volume 8.6 FL (6.5-10.1) Neutrophils (%) (Auto) 65.7 % (45.0-75.0) Lymphocytes (%) (Auto) 20.8 % (20.0-45.0) Monocytes (%) (Auto) 9.7 % (1.0-10.0) Eosinophils (%) (Auto) 2.7 % (0.0-3.0) Basophils (%) (Auto) 1.1 % (0.0-2.0) Sodium Level 140 MMOL/L (136-145) Potassium Level 4.0 MMOL/L (3.5-5.1) Chloride Level 107 MMOL/L (98-107) Carbon Dioxide Level 23 MMOL/L (21-32) Anion Gap 10 mmol/L (5-15) Blood Urea Nitrogen 11 mg/dL (7-18) Creatinine 1.0 MG/DL (0.55-1.30) Estimat Glomerular Filtration Rate > 60 mL/min (>60) Glucose Level 151 MG/DL (74-106) H Calcium Level 8.9 MG/DL (8.5-10.1) Troponin I 0.004 ng/mL (0.000-0.056) Objective HEAD AND NECK: No JVD. LUNGS: Clear. CARDIOVASCULAR: Regular S1 and S2 with no gallop or murmur. ABDOMEN: Soft. EXTREMITIES: No pitting edema. Gato Zayas MD Sep 29, 2019 13:44
--- NOTE | 2019-09-29 13:54 | Consultation ---
History of Present Illness General Chief Complaint: Chest Pain Referring physician: Dr Kelly Reason for Consultation: pulm consult, extemsive pulm histry, chest pain Present Illness Allergies: Coded Allergies: HYDROMORPHONE (Verified Allergy, Unknown, 09/02/19) Uncoded Allergies: CONTRAST DYE (Allergy, Unknown, 03/15/19) IODINE CONTRAST (Allergy, Unknown, 09/26/19) Medication History Scheduled Apixaban (Eliquis), 5 MG PO BID, (Reported) Atorvastatin (Lipitor), 10 MG ORAL DAILY, (Reported) Brimonidine Tartrate* (Alphagan*), 1 DROP BOTH EYES TID, (Reported) Dorzolamide HCl/Timolol Maleat (Dorzolamide-Timolol Eye Drops), 1 DROP BOTH EYES TWICE A DAY, (Reported) Dorzolamide/Timolol/Pf (Cosopt Pf Eye Drops), 1 EACH OP BID, (Reported) Finasteride* (Proscar*), 5 MG ORAL DAILY, (Reported) Metformin Hcl* (Metformin Hcl*), 500 MG ORAL TWICE A DAY, (Reported) Tamsulosin Hcl (Tamsulosin Hcl*), 0.4 MG ORAL BEDTIME, (Reported) Travoprost (Benzalkonium) (Travatan 0.004% Eye Drop), 1 DROP BOTH EYES BEDTIME, (Reported) Patient History Healthcare decision maker TONI COSTA LARRY Resuscitation status Full Code Advanced Directive on File N/A Physical Exam Last 24 Hour Vital Signs Date Time Temp Pulse Resp B/P (MAP) Pulse Ox O2 Delivery O2 Flow Rate FiO2 09/29/19 12:00 97.8 71 16 102/70 (81) 96 09/29/19 09:00 Room Air 09/29/19 08:00 97.4 62 16 108/66 (80) 96 09/29/19 03:36 97.8 61 18 119/63 (81) 95 09/29/19 00:00 98.2 62 17 99/58 (72) 97 09/28/19 23:54 80 18 97 Room Air 21 09/28/19 21:00 Room Air 09/28/19 20:00 98.5 68 16 115/65 (82) 98 09/28/19 16:00 97.9 73 18 105/74 (84) 98 Intake and Output 09/28/19 09/29/19 19:00 07:00 Intake Total 1420 ml 300 ml Balance 1420 ml 300 ml Intake Oral 1420 ml 300 ml # Voids 5 4 # Bowel Movements 2 Laboratory Tests Test 09/29/19 09:50 White Blood Count 6.3 K/UL (4.8-10.8) Red Blood Count 4.53 M/UL (4.70-6.10) L Hemoglobin 11.9 G/DL (14.2-18.0) L Hematocrit 37.1 % (42.0-52.0) L Mean Corpuscular Volume 82 FL (80-99) Mean Corpuscular Hemoglobin 26.4 PG (27.0-31.0) L Mean Corpuscular Hemoglobin Concent 32.2 G/DL (32.0-36.0) Red Cell Distribution Width 14.3 % (11.6-14.8) Platelet Count 172 K/UL (150-450) Mean Platelet Volume 8.6 FL (6.5-10.1) Neutrophils (%) (Auto) 65.7 % (45.0-75.0) Lymphocytes (%) (Auto) 20.8 % (20.0-45.0) Monocytes (%) (Auto) 9.7 % (1.0-10.0) Eosinophils (%) (Auto) 2.7 % (0.0-3.0) Basophils (%) (Auto) 1.1 % (0.0-2.0) Sodium Level 140 MMOL/L (136-145) Potassium Level 4.0 MMOL/L (3.5-5.1) Chloride Level 107 MMOL/L (98-107) Carbon Dioxide Level 23 MMOL/L (21-32) Anion Gap 10 mmol/L (5-15) Blood Urea Nitrogen 11 mg/dL (7-18) Creatinine 1.0 MG/DL (0.55-1.30) Estimat Glomerular Filtration Rate > 60 mL/min (>60) Glucose Level 151 MG/DL (74-106) H Calcium Level 8.9 MG/DL (8.5-10.1) Troponin I 0.004 ng/mL (0.000-0.056) Height (Feet): 5 Height (Inches): 8.00 Weight (Pounds): 196 Medications Current Medications Medications (Trade) Dose Ordered Sig/Kristan Route PRN Reason Start Time Stop Time Status Last Admin Dose Admin Acetaminophen (Tylenol) 650 mg Q4H PRN ORAL Mild pain, T>100.5 09/28/19 21:00 10/27/19 12:59 09/28/19 20:53 Albuterol/ Ipratropium (Albuterol/ Ipratropium) 3 ml Q4H PRN HHN Shortness of Breath 09/28/19 13:00 10/02/19 12:59 Apixaban (Eliquis) 5 mg BID@0900,2100 ORAL 09/28/19 21:00 12/26/19 08:59 09/29/19 09:19 Aspirin (ASA) 162 mg DAILY ORAL 09/29/19 09:00 11/11/19 08:59 09/29/19 09:20 Atorvastatin Calcium (Lipitor) 10 mg DAILY ORAL 09/29/19 09:00 12/26/19 08:59 09/29/19 09:19 Brimonidine Tartrate (Alphagan) 1 drop TID BOTH EYES 09/28/19 13:00 12/26/19 12:59 09/29/19 09:27 Dorzolamide/ Timolol (Cosopt) 1 drop TWICE A DAY BOTH EYES 09/28/19 18:00 10/27/19 17:59 09/29/19 09:20 Finasteride (Proscar) 5 mg DAILY ORAL 09/29/19 09:00 12/26/19 08:59 09/29/19 09:19 Latanoprost (Xalatan) 1 drop BEDTIME BOTH EYES 09/28/19 21:00 10/27/19 20:59 09/28/19 20:43 Nitroglycerin (Ntg) 0.4 mg Q5M PRN SL Prn Chest Pain 09/28/19 12:00 10/27/19 01:59 Ondansetron HCl (Zofran) 4 mg Q6H PRN IVP Nausea & Vomiting 09/28/19 13:00 10/27/19 12:59 Polyethylene Glycol (Miralax) 17 gm DAILYPRN PRN ORAL Constipation 09/29/19 13:00 10/27/19 12:59 Regadenoson (Lexiscan) 0.4 mg ONCE PRN IV STRESS TEST 09/28/19 12:00 10/01/19 11:59 Tamsulosin HCl (Flomax) 0.4 mg BEDTIME ORAL 09/28/19 21:00 10/27/19 20:59 09/28/19 20:43 Temazepam (Restoril) 15 mg HSPRN PRN ORAL Insomnia 09/28/19 21:00 10/05/19 20:59 Assessment/Plan Assessment/Plan: Hematology Consultation REQ MD: Kevin Kelly RFC: PE and ivc filter hx DOS: 09/29/2019 ID 64-year-old male with history of CHF, PE, and pacemaker here complaining of few hours of sudden onset of left-sided chest pain without radiation. Reports that the pain started as he was resting. Denies any exertion. Patient has been [place] [facility] multiple times for chest pain, is requesting to be admitted. Patient keeps calling primary doctor and stating that she is not getting. Blood draw had to be done by the package crimper from the laboratories patient is a hard stick. Denies any dizziness and headache at this time. Patient is currently on Eliquis. Last VQ scan was done April 2019 and within normal limits. 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 Sitting comfortably with stable vital signs. No unilateral or generalized weakness noted. Neurovascularly intact. Denies abdominal pain, nausea vomiting, cough and congestion. I have seen him many times in the past, also at [facility], is well known to me, is currently on eliquis bid dosing, he has a history of major noncompliance with care Allergies: HYDROMORPHONE (Verified Allergy, Unknown, 09/02/19) Uncoded Allergies: CONTRAST DYE (Allergy, Unknown, 03/15/19) IODINE CONTRAST (Allergy, Unknown, 09/26/19) COVID-19 Screening Contact w/high risk pt: No Recent Travel to affected area: No Experienced COVID-19 symptoms?: Yes COVID-19 symptoms experienced: Shortness of Breath Patient History Past Medical History: see triage record Past Surgical History: none Pertinent Family History: none Immunizations: UTD Reviewed Nursing Documentation: PMH: Agreed; PSxH: Agreed Nursing Documentation-PMH Hx Cardiac Problems: Yes - SD/2017, glaucoma Hx Hypertension: Yes Hx Pacemaker: Yes Hx Asthma: No Hx COPD: Yes Hx Diabetes: Yes Hx Cancer: No Hx Gastrointestinal Problems: No Hx Dialysis: No Hx Neurological Problems: No Hx Cerebrovascular Accident: No Hx Seizures: No ROS (review of systems): Constitutional: No fever, no chills, no night sweats, no fatigue Skin: No rashes, lumps, itchiness, dryness HEENT: No CRUZ, ear ache, visual changes, double vision, nosebleeds Breasts: No lumps, pain, discharge Pulmonary: No cough, sputum, shortness of breath, coughing up blood Cardiovascular: No chest pain, tightness, palpitations, syncope, PND GI: No nausea, vomiting, diarrhea, melena, hematochezia, change in appetite, : No dysuria, frequency, urgency, urinary incontinence, foamy urine Musculoskeletal: No joint swelling or muscle pain, trauma, back pain Neurologic: No dizziness, fainting, seizures, changes in smell or taste Psychiatric: No nervousness, stress, or depression, anxiety, hallucinations Endocrine: No weight change, heat or cold intolerance, tremor, insomnia Physical Exam: Vitals: reviewed General: NAD HEENT: nc, at Neck: supple Chest: clear breath sounds bilaterally Cardiovascular: RRR, no s3, s4 Neuro: alert and oriented Labs noted Imaging: in emr Assessment and Recs # Pulmonary embolism, status post open embolectomy history. The patient has multiple V/Q scan had been negative. Most recent one in April 2019 at [facility] was also negative. --> He is on Eliquis 5 mg b.i.d. --> continue at current dosing -> is s/p ivc filter as well # Anemia of chronic disease --> trend h/h as needed --> currently is stable # Atypical chest pain and History of permanent pacemaker. --> in past refused stress test, to get stress treadmill test --> per Dr. Zayas # S/P [facility] pacer that was interrogated recently and showed Nl Fx # Hyperlipidemia, on Lipitor. # Diabetes, on metformin.tus post embolectomy. # RA # SD 2017 DW RN and appreciate consultation Adilson Gordon MD Sep 29, 2019 13:54
--- NOTE | 2019-09-29 14:44 | NUR ---
P.T Note: P.T evaluation completed. Based on P.T evaluation, pt is baseline independent in all areas of ADL/self care and gait/locomotion. Current functional status does not warrant skilled P.T services. DC P.T services.
[2019-09-29 16:00] VITALS: BP 104/55
--- NOTE | 2019-09-29 19:01 | NUR ---
HAND-OFF: Report given to Matheus NAIR.
--- NOTE | 2019-09-29 19:02 | NUR ---
NURSE NOTES: Received report from Ina NAIR. Patient went to restroom and came back to bed, a/o x4, and able to known his need. C/o pain 08/25 and will give medication as ordered. No any distress at this time. No iv access and Dr. Kelly aware. Bed is on alarm, locked, and lowest position. Call light within reach. Will continue to monitor.
[2019-09-29 20:00] VITALS: BP 113/62
[2019-09-29] MEDS: Tamsulosin 0.4mg cap ORAL SCH (20:04)
[2019-09-29] MEDS: Latanoprost 0.005% Opth 2.5ml Soln BOTH EYES SCH (20:05)
[2019-09-30] VITALS: BP 124/62
[2019-09-30 04:00] VITALS: BP 124/64
--- NOTE | 2019-09-30 07:35 | NUR ---
HAND-OFF: Report given to Ina NAIR. Patient in stable condition.
--- NOTE | 2019-09-30 07:41 | NUR ---
NURSE NOTES: Received report from Matheus NAIR. Patient is awake and oriented, no acute distress noted, ambulating in room with steady gait. Reporting no pain at this time. Patient scheduled for treadmill stress test today. Will continue plan of care.
[2019-09-30 08:00] VITALS: BP 125/86
[2019-09-30] MEDS: Eliquis 5mg tablet ORAL SCH (08:27)
[2019-09-30] MEDS: Brimonidine 0.2% Opth Sol BOTH EYES SCH (08:28)
[2019-09-30] MEDS: Aspirin Baby 81mg ORAL SCH (08:28)
[2019-09-30] MEDS: Cosopt Opth Soln 10 mL Btl BOTH EYES SCH (08:28)
--- NOTE | 2019-09-30 08:41 | NUR ---
NURSE NOTES: Patient stated he wants to leave AMA. Called Dr. Kelly's exchange to notify
--- NOTE | 2019-09-30 09:02 | NUR ---
NURSE NOTES: Nursing forge shop supervisor Elisabeth notified patient left AMA.
--- NOTE | 2019-09-30 09:02 | NUR ---
NURSE NOTES: Patient left AMA at 0847. Patient left with all belongings and signed for belongings. Patient was educated on the risks of leaving AMA including worsening of condition and , patient verbalized understanding of risks and still insisted on leaving AMA. Dr. Kelly was notified and aware patient left AMA. Patient was escorted out of hospital.
--- NOTE | 2019-09-30 09:03 | Hematology/Onc Progress Note ---
Assessment/Plan Assessment/Plan Assessment and Recs # Pulmonary embolism, status post open embolectomy history. The patient has multiple V/Q scan had been negative. Most recent one in April 2019 at [facility] was also negative. --> He is on Eliquis 5 mg b.i.d. --> continue at current dosing -> is s/p ivc filter as well --> no bleeding at this time # Anemia of chronic disease --> trend h/h as needed --> currently is stable # Atypical chest pain and History of permanent pacemaker. --> in past refused stress test, to get stress treadmill test --> per Dr. Zayas # S/P [facility] pacer that was interrogated recently and showed Nl Fx # Hyperlipidemia, on Lipitor. # Diabetes, on metformin.tus post embolectomy. # RA # [place] 2017 DW RN and appreciate consultation Subjective Constitutional: Denies: no symptoms, chills, fever, malaise, weakness, other HEENT: Denies: no symptoms, eye pain, blurred vision, tearing, double vision, ear pain, ear discharge, nose pain, nose congestion, throat pain, throat swelling, mouth pain, mouth swelling, other Cardiovascular: Denies: no symptoms, chest pain, edema, irregular heart rate, lightheadedness, palpitations, syncope, other Respiratory: Denies: no symptoms, cough, shortness of breath, SOB with excertion, SOB at rest, sputum, wheezing, other Gastrointestinal/Abdominal: Denies: no symptoms, abdomen distended, abdominal pain, black stools, tarry stools, blood in stool, constipated, diarrhea, difficulty swallowing, nausea, poor appetite, poor fluid intake, rectal bleeding , vomiting, other Genitourinary: Denies: no symptoms, burning, discharge, frequency, flank pain, hematuria, incontinence, pain, urgency, other Neurologic/Psychiatric: Denies: no symptoms, anxiety, depressed, emotional problems, headache, numbness, paresthesia, pre-existing deficit, seizure, tingling, tremors, weakness, other Allergies: Coded Allergies: HYDROMORPHONE (Verified Allergy, Unknown, 09/02/19) Uncoded Allergies: CONTRAST DYE (Allergy, Unknown, 03/15/19) IODINE CONTRAST (Allergy, Unknown, 09/26/19) Subjective 09/29 labs reviewed and cbc still pending in am, no bleeding Objective Objective Current Medications Medications (Trade) Dose Ordered Sig/Kristan Route PRN Reason Start Time Stop Time Status Last Admin Dose Admin Acetaminophen (Tylenol) 650 mg Q4H PRN ORAL Mild pain, T>100.5 09/28/19 21:00 10/27/19 12:59 09/29/19 20:05 Albuterol/ Ipratropium (Albuterol/ Ipratropium) 3 ml Q4H PRN HHN Shortness of Breath 09/28/19 13:00 10/02/19 12:59 Apixaban (Eliquis) 5 mg BID@0900,2100 ORAL 09/28/19 21:00 12/26/19 08:59 09/30/19 08:27 Aspirin (ASA) 162 mg DAILY ORAL 09/29/19 09:00 11/11/19 08:59 09/30/19 08:28 Atorvastatin Calcium (Lipitor) 10 mg DAILY ORAL 09/29/19 09:00 12/26/19 08:59 09/30/19 08:27 Brimonidine Tartrate (Alphagan) 1 drop TID BOTH EYES 09/28/19 13:00 12/26/19 12:59 09/30/19 08:28 Dorzolamide/ Timolol (Cosopt) 1 drop TWICE A DAY BOTH EYES 09/28/19 18:00 10/27/19 17:59 09/30/19 08:28 Finasteride (Proscar) 5 mg DAILY ORAL 09/29/19 09:00 12/26/19 08:59 09/30/19 08:27 Latanoprost (Xalatan) 1 drop BEDTIME BOTH EYES 09/28/19 21:00 10/27/19 20:59 09/29/19 20:05 Nitroglycerin (Ntg) 0.4 mg Q5M PRN SL Prn Chest Pain 09/28/19 12:00 10/27/19 01:59 Ondansetron HCl (Zofran) 4 mg Q6H PRN IVP Nausea & Vomiting 09/28/19 13:00 10/27/19 12:59 Polyethylene Glycol (Miralax) 17 gm DAILYPRN PRN ORAL Constipation 09/29/19 13:00 10/27/19 12:59 Regadenoson (Lexiscan) 0.4 mg ONCE PRN IV STRESS TEST 09/28/19 12:00 10/01/19 11:59 Tamsulosin HCl (Flomax) 0.4 mg BEDTIME ORAL 09/28/19 21:00 10/27/19 20:59 09/29/19 20:04 Temazepam (Restoril) 15 mg HSPRN PRN ORAL Insomnia 09/28/19 21:00 10/05/19 20:59 Last 24 Hour Vital Signs Date Time Temp Pulse Resp B/P (MAP) Pulse Ox O2 Delivery O2 Flow Rate FiO2 09/30/19 08:00 98.3 98 16 125/86 (99) 97 09/30/19 06:32 68 16 96 Room Air 21 09/30/19 04:00 97.1 64 18 124/64 (84) 98 09/30/19 00:00 98.1 64 18 124/62 (82) 98 09/29/19 21:00 Room Air 09/29/19 20:10 71 20 97 Room Air 21 09/29/19 20:00 97.1 71 19 113/62 (79) 96 09/29/19 16:00 98.1 70 16 104/55 (71) 97 09/29/19 12:00 97.8 71 16 102/70 (81) 96 09/29/19 09:00 Room Air 09/29/19 08:00 97.4 62 16 108/66 (80) 96 09/29/19 03:36 97.8 61 18 119/63 (81) 95 09/29/19 00:00 98.2 62 17 99/58 (72) 97 09/28/19 23:54 80 18 97 Room Air 21 09/28/19 21:00 Room Air 09/28/19 20:00 98.5 68 16 115/65 (82) 98 09/28/19 16:00 97.9 73 18 105/74 (84) 98 09/28/19 12:00 99.0 73 20 116/58 (77) 96 Intake and Output 09/29/19 09/30/19 19:00 07:00 Intake Total 700 ml 400 ml Balance 700 ml 400 ml Intake Oral 700 ml 400 ml # Voids 2 2 Labs Test 09/28/19 06:40 09/29/19 09:50 White Blood Count 5.6 K/UL (4.8-10.8) 6.3 K/UL (4.8-10.8) Red Blood Count 4.53 M/UL (4.70-6.10) 4.53 M/UL (4.70-6.10) Hemoglobin 12.0 G/DL (14.2-18.0) 11.9 G/DL (14.2-18.0) Hematocrit 36.9 % (42.0-52.0) 37.1 % (42.0-52.0) Mean Corpuscular Volume 81 FL (80-99) 82 FL (80-99) Mean Corpuscular Hemoglobin 26.4 PG (27.0-31.0) 26.4 PG (27.0-31.0) Mean Corpuscular Hemoglobin Concent 32.4 G/DL (32.0-36.0) 32.2 G/DL (32.0-36.0) Red Cell Distribution Width 14.4 % (11.6-14.8) 14.3 % (11.6-14.8) Platelet Count 168 K/UL (150-450) 172 K/UL (150-450) Mean Platelet Volume 10.4 FL (6.5-10.1) 8.6 FL (6.5-10.1) Neutrophils (%) (Auto) 60.7 % (45.0-75.0) 65.7 % (45.0-75.0) Lymphocytes (%) (Auto) 23.0 % (20.0-45.0) 20.8 % (20.0-45.0) Monocytes (%) (Auto) 12.7 % (1.0-10.0) 9.7 % (1.0-10.0) Eosinophils (%) (Auto) 2.9 % (0.0-3.0) 2.7 % (0.0-3.0) Basophils (%) (Auto) 0.7 % (0.0-2.0) 1.1 % (0.0-2.0) Erythrocyte Sedimentation Rate 7 MM/HR (0-20) Prothrombin Time 9.8 SEC (9.30-11.50) Prothromb Time International Ratio 0.9 (0.9-1.1) Activated Partial Thromboplast Time 29 SEC (23-33) Sodium Level 141 MMOL/L (136-145) 140 MMOL/L (136-145) Potassium Level 4.2 MMOL/L (3.5-5.1) 4.0 MMOL/L (3.5-5.1) Chloride Level 108 MMOL/L (98-107) 107 MMOL/L (98-107) Carbon Dioxide Level 23 MMOL/L (21-32) 23 MMOL/L (21-32) Anion Gap 10 mmol/L (5-15) 10 mmol/L (5-15) Blood Urea Nitrogen 17 mg/dL (7-18) 11 mg/dL (7-18) Creatinine 1.0 MG/DL (0.55-1.30) 1.0 MG/DL (0.55-1.30) Estimat Glomerular Filtration Rate > 60 mL/min (>60) > 60 mL/min (>60) Glucose Level 124 MG/DL (74-106) 151 MG/DL (74-106) Calcium Level 8.7 MG/DL (8.5-10.1) 8.9 MG/DL (8.5-10.1) Lactate Dehydrogenase 130 U/L (81-234) Troponin I 0.022 ng/mL (0.000-0.056) 0.004 ng/mL (0.000-0.056) C-Reactive Protein, Quantitative < 0.4 mg/dL (0.00-0.90) Triglycerides Level 93 MG/DL (30-150) Cholesterol Level 198 MG/DL (< 200) LDL Cholesterol 122 mg/dL (<100) HDL Cholesterol 45 MG/DL (40-60) Cholesterol/HDL Ratio 4.4 (3.3-4.4) Thyroid Stimulating Hormone (TSH) 0.770 uiU/mL (0.358-3.740) Height (Feet): 5 Height (Inches): 8.00 Weight (Pounds): 196 Objective Vitals: reviewed General: NAD HEENT: nc, at Neck: supple Chest: clear breath sounds bilaterally Cardiovascular: RRR, no s3, s4 Neuro: alert and oriented Adilson Gordon MD Sep 30, 2019 09:03
--- NOTE | 2019-10-01 14:14 | History and Physical Report ---
DATE AND TIME SEEN: 09/27/2019 at 8 a.m. CONSULTANTS: 1. Adilson Gordon M.D. 2. Gato Zayas M.D. 3. Burke Tamayo M.D. CHIEF COMPLAINT: Chest pain. BRIEF HISTORY: This is a 64-year-old male, who lives at home, presented with two-day increased chest pain, pressure like, no radiation. No loss of consciousness. No shortness of breath. He was slightly weak, came to [facility], diagnosed with the above, admitted to telemetry for further care. Currently, calm in bed, no complaint, otherwise. REVIEW OF SYSTEMS: Currently, no chest pain. No shortness of breath. No nausea, vomiting, or diarrhea. PAST MEDICAL HISTORY: Includes CHF, diabetes, glaucoma, history of PE and DVT, DJD, COPD, and hypertension. PAST SURGICAL HISTORY: Abdominal surgery, eye surgery, and pacemaker. MEDICATION: Include , apixaban, finasteride, nitroglycerin, Zofran, temazepam, enalapril. ALLERGIES: Contrast dye, hydromorphone, and iodine. SOCIAL HISTORY: No smoking. No alcohol. No intravenous drug abuse. FAMILY HISTORY: Noncontributory. PHYSICAL EXAMINATION: GENERAL: Calm in bed, oriented x3, no acute distress. VITAL SIGNS: Temperature is 97 degrees, pulse 71, respirations 18, blood pressure 124/76. CARDIOVASCULAR: No murmur. LUNGS: Distant and clear. ABDOMEN: Bowel sounds positive. Nontender and nondistended. EXTREMITIES: Show no cyanosis, clubbing, or edema. NEUROLOGIC: The patient moves all extremities slightly weak. LABORATORY AND DIAGNOSTIC DATA: Labs at this time show hemoglobin and hematocrit 13/41, otherwise CBC is normal. BMP is normal. Troponin is 0.011 and then 0.010. INR is 0.9. PTT is 30. Urinalysis, 2+ leukocyte esterase. ASSESSMENT: 1. Chest pain. 2. UTI. 3. CHF. 4. Weakness. 5. History of PE. 6. Hypertension. 7. Diabetes. 8. COPD. 9. DJD. PLAN: 1. Blood pressure and blood sugar control. 2. Pain control. 3. Dietary followup. 4. Resume home medications. 5. Cardiology followup. 6. PT, OT, dietary evaluation. 7. Antibiotic per Infectious Disease. 8. CBC and BMP in the morning. Kevin Kelly D.O. DR: LINDNE JOB#: [id number] CC:
--- NOTE | 2019-10-01 15:37 | Discharge Summary ---
Discharge Summary Discharge Summary _ DATE OF ADMISSION: 09/26/2019 DATE OF DISCHARGE: 09/30/2019 Patient left AGAINST MEDICAL ADVICE REASON FOR ADMISSION: 64 years old male with past medical history of COPD, pulmonary embolism, status post open embolectomy and IVC filter, on chronic anticoagulation, coronary artery disease, history of [place] 2016, bilateral glaucoma, enlarged prostate, pacemaker, presented with sudden onset of left-sided chest pain without radiation. Pain started when patient was rested. He denied any exertion , no dizziness or headache. Last VQ scan was done in April 2019 , and was stable. Upon evaluation vital signs were stable. Laboratory work-up revealed no leukocytosis, stable hemoglobin ,hematocrit, electrolytes and renal parameters. Troponin 0.011, repeated 0.01, pro BNP 115. Urine toxicology screen was negative. Urinalysis revealed no evidence of urinary tract infection, +1 protein. CXR demonstrated no acute process. Patient subsequently admitted to telemetry floor for chest pain , rule out acute coronary syndrome. CONSULTANTS: wrecking supervisor Dr. Ross pulmonary Dr. Tamayo ID specialist Dr. Cooper batch analyst/oncologist Dr. Gordon [facility] COURSE: Patient admitted to telemetry floor. Serial troponin were negative. EKG revealed no acute ischemic changes. Patient was ruled out for acute TN. [facility] followed. Patient refused Lexiscan 2 weeks ago. Patient was rescheduled for treadmill stress test, but again refused on 2019. Echocardiogram revealed preserved ejection fraction of 60%. No evidence of wall motion abnormality. No evidence of pericardial effusion. Right ventricular systolic pressure of 34. Patient was rescheduled for stress test but patient declined to started IV . Patient subsequently was rescheduled for regular treadmill stress test. Lipid panel revealed elevated LDL 122. HDL 45, total cholesterol 198. Patient was counseled on cardiac low-fat diet and compliance with statin. Patient continued on anticoagulation with Eliquis and antiplatelet therapy with aspirin. Statin continued. Nitroglycerin was on board as needed. Supplemental oxygen provided and titrated to keep oximetry above 92%. Pulse oximetry o remained stable on room air. Patient had multiply VQ scans in the past , that were negative. Most recent was done in April 2019 at [facility], which was also negative. Pacemaker was recently interrogated and showed normal functioning. Blood sugar was managed with metformin. Anti-glaucoma drops continued. ID specialist followed. Lymphocyte percentage was low, but absolute count was normal. LDH ,ESR ,CRP were all within normal limits. Urinalysis was negative. Chest x-ray revealed no acute cardiopulmonary pathology. ID specialist recommended to monitor patient off antibiotics. Patient remained afebrile, no leukocytosis. On 09/29 at 08: 47 patient left AGAINST MEDICAL ADVICE. The risks and consequences of signing AGAINST MEDICAL ADVICE were discussed with patient in detail. Patient verbalized understanding, nevertheless signed AMA form and left. FINAL DIAGNOSES: Atypical chest pain History of pulmonary embolism, status post open embolectomy Status post [facility] pacemaker Hyperlipidemia Diabetes mellitus Glaucoma Noncompliance and system abuser I have been assigned to dictate discharge summary for this account. I was not involved in the patient's management. Angelica Prakash NP Oct 01, 2019 15:37
--- NOTE | 2019-10-02 09:33 | Coder Physician Query ---
Clarification is required for compliance, coding accuracy, and to reflect severity of illness for this patient Dear Dr. Kevin Kelly Date: 10/02/2019 Urgent Care Physician Assistant/CDS' Name : RYLEE Estrada 64 years old male with past medical history of COPD, pulmonary embolism, status post open embolectomy and IVC filter, on chronic anticoagulation, coronary artery disease, history of [place] 2017, bilateral glaucoma, enlarged prostate, pacemaker, presented with sudden onset of left-sided chest pain without radiation. Serial troponin were negative. EKG revealed no acute ischemic changes. Patient was ruled out for acute [place]. Echocardiogram revealed preserved ejection fraction of 60%. No evidence of wall motion abnormality. No evidence of pericardial effusion. Patient had multiply VQ scans in the past , that were negative. Most recent was done in April 2019 at [facility], which was also negative. Pacemaker was recently interrogated and showed normal functioning. Please document the suspected etiology of Chest Pain: [] Acute Coronary Syndrome [] Pericarditis [] Anxiety [] Pneumonia [] Costochondritis [] Pneumothorax [] GERD/Esophagitis [] Other: [] Unable to determine Physician signature Date Please also document in your Progress Notes and/or Discharge Summary and indicate if the condition was present on admission. MINE
== END 2019-09-30 08:50 | disposition left against medical advice (07) | DRG 313 ==
LOC: EMR 15:30 → 2E 17:46 → EDBEDREQ 21:09 → 3E 09-28 11:52
DX: R07.89 Other chest pain (principal); N39.0 Urinary tract infection, site not specified; Z88.6 Allergy status to analgesic agent; Z91.041 Radiographic dye allergy status; H40.9 Unspecified glaucoma; I11.0 Hypertensive heart disease with heart failure; I50.9 Heart failure, unspecified; E11.9 Type 2 diabetes mellitus without complications; Z86.711 Personal history of pulmonary embolism; Z79.01 Long term (current) use of anticoagulants; Z86.718 Personal history of other venous thrombosis and embolism; M19.90 Unspecified osteoarthritis, unspecified site; I25.2 Old myocardial infarction; Z79.82 Long term (current) use of aspirin; E78.5 Hyperlipidemia, unspecified; Z95.0 Presence of cardiac pacemaker; Z79.84 Long term (current) use of oral hypoglycemic drugs; Z91.19 Patient's noncompliance with other medical treatment and regimen; J44.9 Chronic obstructive pulmonary disease, unspecified; M51.36 Other intervertebral disc degeneration, lumbar region; D63.8 Anemia in other chronic diseases classified elsewhere
CPT/HCPCS: 36415; 71045; 80048; 80053; 80061; 80307; 81003; 83615; 83880; 84443; 84484; 85025; 85610; 85651; 85730; 86140; 93306; 94664; 99285

== ENCOUNTER 2019-11-10 19:32 | Inpatient (IN) | payer MEDICARE, MEDICAID ==
[~2019-11-10] VITALS: Ht 172.7 cm; Wt 93.0 kg
--- NOTE | 2019-11-10 19:40 | NUR ---
ED Nurse Note: Pt ambulated to ED from home c/o 8/10 L-sided chest pressure that radiating to jaw. VSS pt is A&Ox4, Pt denies fever/N/V, hx of PE, c/o SOB. Pt placed on teletypesetter monitor, ERMD at bedside, EKG done. Blood sent to Lab
--- NOTE | 2019-11-10 19:42 | Emergency Room Report ---
History of Present Illness General Chief Complaint: Chest Pain Source: Patient Present Illness HPI Disclaimer: Please note that this report is being documented using DRAGON technology. This can lead to erroneous entry secondary to incorrect interpretation by the dictating instrument. HPI: 64-year-old male history of CAD with ventricular mural thrombosis, hypertension, BPH, diabetes, PE/DVT on Eliquis, COPD status post ICD presents for evaluation of chest pain. Patient states approximately noon today while at rest he began to have pressure over the sternum rating to the left chest. Also some radiation the left side of the neck causing him to have a headache. Denies pain rating to the back or to the arm. He reports associated shortness of breath, exertional dyspnea and pain worsening with exertion. He is concerned it may be something wrong with his pacemaker though he states it has been checked multiple times and no problems have been found yet. Pain is currently an 8/10. Denies nausea, vomiting, fever, chills, cough. He denies lower extremity swelling. He also notes dysuria starting yesterday. He saw his urologist 3 days ago for procedure in the office. There was some instrumentation but does not know the exact procedure. This morning he was started on antibiotics. He took 1 tablet but does not know the name of it. He denies hematuria or flank pain. PMH: CAD status post ICD, PE, BPH, diabetes, COPD, personality disorder PSH: Thoracotomy, pacemaker placement, embolectomy, glaucoma surgery Allergies: Contrast media Social Hx: Denies Allergies: Coded Allergies: HYDROMORPHONE (Verified Allergy, Unknown, 09/02/19) Uncoded Allergies: CONTRAST DYE (Allergy, Unknown, 03/15/19) IODINE CONTRAST (Allergy, Unknown, 09/26/19) COVID-19 Screening Contact w/high risk pt: No Recent Travel to affected area: No Experienced COVID-19 symptoms?: No COVID-19 symptoms experienced: Shortness of Breath COVID-19 Testing performed EDGE BURNISHER: Yes - 11/08/19 COVID-19 Screening: Negative COVID-19 COVID-19 Testing Source: [facility] Nursing Documentation-PMH Hx Cardiac Problems: Yes - MD/2016, glaucoma Hx Hypertension: Yes Hx Pacemaker: Yes Hx Asthma: No Hx COPD: Yes Hx Diabetes: Yes Hx Cancer: No Hx Gastrointestinal Problems: No Hx Dialysis: No Hx Neurological Problems: No Hx Cerebrovascular Accident: No Hx Seizures: No Review of Systems All Other Systems: negative except mentioned in HPI Physical Exam Vital Signs Date Time Temp Pulse Resp B/P (MAP) Pulse Ox O2 Delivery O2 Flow Rate FiO2 11/10/19 19:34 98.8 112 18 109/74 (86) 97 Room Air General: Awake and alert, no acute distress HEENT: NC/AT. EOMI. Chest wall: Sternotomy scars clean dry and intact. Pacemaker palpable in left chest. Cardiovascular: Tachycardic. S1 and S2 normal. No murmur appreciated Resp: Normal work of breathing. No cough, wheezing or crackles appreciated Abdomen: Abdomen is soft, nondistended. Nontender Skin: Intact. No abrasions, laceration or rash over the exposed skin. Sternotomy scar intact, clean and dry MSK: Normal tone and bulk. Moving all extremities. No obvious deformity. No lower extremity edema. No unilateral tenderness. Neuro: Awake and alert. Mentating appropriately. Medical Decision Making Diagnostic Impression: Primary Impression: Urinary tract infection Additional Impression: Chest pain ER Course This is a 64-year-old male extensive medical history including MD status post pacemaker, PE on chronic anticoagulation and status post IVC filter presenting for chest pain. Differential includes was not limited to atypical chest pain, pacemaker malfunction, cardiac arrhythmia, ACS, PE, bronchitis, pneumonia, pneumothorax, GERD, UTI, sepsis, musculoskeletal pain to name a few. Patient was tachycardic but oxygen saturation 100% on room air, blood pressure within normal limits. Last dose of Eliquis this morning along with his antibiotic. We will give aspirin, nitroglycerin, draw broad labs, EKG, chest x-ray and plan for admission. Labs Test 11/10/19 19:45 11/10/19 20:35 11/11/19 07:15 11/12/19 05:38 White Blood Count 21.5 K/UL (4.8-10.8) 19.6 K/UL (4.8-10.8) Red Blood Count 4.94 M/UL (4.70-6.10) 4.50 M/UL (4.70-6.10) Hemoglobin 12.9 G/DL (14.2-18.0) 11.8 G/DL (14.2-18.0) Hematocrit 39.1 % (42.0-52.0) 35.6 % (42.0-52.0) Mean Corpuscular Volume 79 FL (80-99) 79 FL (80-99) Mean Corpuscular Hemoglobin 26.1 PG (27.0-31.0) 26.3 PG (27.0-31.0) Mean Corpuscular Hemoglobin Concent 32.9 G/DL (32.0-36.0) 33.2 G/DL (32.0-36.0) Red Cell Distribution Width 14.3 % (11.6-14.8) 14.4 % (11.6-14.8) Platelet Count 152 K/UL (150-450) 139 K/UL (150-450) Mean Platelet Volume 9.5 FL (6.5-10.1) 9.7 FL (6.5-10.1) Neutrophils (%) (Auto) % (45.0-75.0) % (45.0-75.0) Lymphocytes (%) (Auto) % (20.0-45.0) % (20.0-45.0) Monocytes (%) (Auto) % (1.0-10.0) % (1.0-10.0) Eosinophils (%) (Auto) % (0.0-3.0) % (0.0-3.0) Basophils (%) (Auto) % (0.0-2.0) % (0.0-2.0) Differential Total Cells Counted 100 100 Neutrophils % (Manual) 92 % (45-75) 84 % (45-75) Lymphocytes % (Manual) 4 % (20-45) 7 % (20-45) Monocytes % (Manual) 4 % (1-10) 9 % (1-10) Eosinophils % (Manual) 0 % (0-3) 0 % (0-3) Basophils % (Manual) 0 % (0-2) 0 % (0-2) Band Neutrophils 0 % (0-8) 0 % (0-8) Platelet Estimate Decreased Decreased Platelet Morphology Normal Normal Anisocytosis 1+ 1+ Microcytosis 1+ Prothrombin Time 11.8 SEC (9.30-11.50) Prothromb Time International Ratio 1.1 (0.9-1.1) Activated Partial Thromboplast Time 33 SEC (23-33) Urine Color Brown Urine Appearance Cloudy Urine pH 5 (4.5-8.0) Urine Specific [place] 1.025 (1.005-1.035) Urine Protein 3+ (NEGATIVE) Urine Glucose (UA) Negative (NEGATIVE) Urine Ketones 3+ (NEGATIVE) Urine Blood 1+ (NEGATIVE) Urine Nitrite Negative (NEGATIVE) Urine Bilirubin 1+ (NEGATIVE) Urine Ictotest Negative (NEGATIVE) Urine Urobilinogen 1 MG/DL (0.0-1.0) Urine Leukocyte Esterase 2+ (NEGATIVE) Urine RBC 0-2 /HPF (0 - 0) Urine WBC 20-30 /HPF (0 - 0) Urine Squamous Epithelial Cells Occasional /LPF Urine Bacteria Few /HPF (NONE) Sodium Level 138 MMOL/L (136-145) 138 MMOL/L (136-145) Potassium Level 4.2 MMOL/L (3.5-5.1) 4.1 MMOL/L (3.5-5.1) Chloride Level 103 MMOL/L (98-107) 105 MMOL/L (98-107) Carbon Dioxide Level 22 MMOL/L (21-32) 22 MMOL/L (21-32) Anion Gap 13 mmol/L (5-15) 11 mmol/L (5-15) Blood Urea Nitrogen 17 mg/dL (7-18) 23 mg/dL (7-18) Creatinine 1.5 MG/DL (0.55-1.30) 1.6 MG/DL (0.55-1.30) Estimat Glomerular Filtration Rate 57.4 mL/min (>60) 53.3 mL/min (>60) Glucose Level 161 MG/DL (74-106) 134 MG/DL (74-106) Calcium Level 9.0 MG/DL (8.5-10.1) 8.6 MG/DL (8.5-10.1) Total Bilirubin 1.0 MG/DL (0.2-1.0) 0.9 MG/DL (0.2-1.0) Aspartate Amino Transf (AST/SGOT) 13 U/L (15-37) 20 U/L (15-37) Alanine Aminotransferase (ALT/SGPT) 23 U/L (12-78) 20 U/L (12-78) Alkaline Phosphatase 70 U/L (46-116) 63 U/L (46-116) Troponin I 0.000 ng/mL (0.000-0.056) 0.000 ng/mL (0.000-0.056) 0.000 ng/mL (0.000-0.056) Pro-B-Type Natriuretic Peptide 128 pg/mL (0-125) Total Protein 8.0 G/DL (6.4-8.2) 7.1 G/DL (6.4-8.2) Albumin 4.0 G/DL (3.4-5.0) 3.3 G/DL (3.4-5.0) Globulin 4.0 g/dL 3.8 g/dL Albumin/Globulin Ratio 1.0 (1.0-2.7) 0.9 (1.0-2.7) Lactic Acid Level 1.60 mmol/L (0.4-2.0) Hypochromasia 1+ Prostate Specific Antigen 23.03 ng/mL (0.13-4.0) Test 11/13/19 05:37 White Blood Count 7.7 K/UL (4.8-10.8) Red Blood Count 4.35 M/UL (4.70-6.10) Hemoglobin 11.3 G/DL (14.2-18.0) Hematocrit 34.5 % (42.0-52.0) Mean Corpuscular Volume 79 FL (80-99) Mean Corpuscular Hemoglobin 26.0 PG (27.0-31.0) Mean Corpuscular Hemoglobin Concent 32.7 G/DL (32.0-36.0) Red Cell Distribution Width 14.3 % (11.6-14.8) Platelet Count 156 K/UL (150-450) Mean Platelet Volume 9.3 FL (6.5-10.1) Neutrophils (%) (Auto) 68.5 % (45.0-75.0) Lymphocytes (%) (Auto) 16.4 % (20.0-45.0) Monocytes (%) (Auto) 10.8 % (1.0-10.0) Eosinophils (%) (Auto) 3.6 % (0.0-3.0) Basophils (%) (Auto) 0.7 % (0.0-2.0) EKG Diagnostic Results EKG Time: 19:43 Rate: tachycardiac Rhythm: NSR ST Segments: no acute changes Other Impression Sinus tachycardia, normal axis, normal intervals, no ST segment changes. Rhythm Strip Diag. Results Rhythm Strip Time: 19:43 EP Interpretation: yes Rate: 100s Rhythm: no PVC's, no ectopy Chest X-Ray Diagnostic Results Chest X-Ray Diagnostic Results : Chest X-Ray Ordered: Yes # of Views/Limited/Complete: 1 View Indication: Chest Pain EP Interpretation: Yes Interpretation: no consolidation, no effusion, no pneumothorax, other - Sternotomy wires appear intact Impression: No acute disease Electronically Signed by: Electronically signed by Dr. John Fierro Last Vital Signs Date Time Temp Pulse Resp B/P (MAP) Pulse Ox O2 Delivery O2 Flow Rate FiO2 11/10/19 19:34 98.8 112 18 109/74 (86) 97 Room Air Disposition: ADMITTED INPATIENT Condition: Serious John Fierro MD November 10, 2019 19:42
[2019-11-10 19:47] VITALS: BP 109/74
--- NOTE | 2019-11-10 19:55 | Diagnostic Imaging Report ---
Chest 1 view History: Chest pain Findings: Trachea is midline. Sternotomy wires are seen. There is a left chest wall cardiac pacer with leads extending into the right heart. Lungs are clear. Negative for pleural effusion. Bones are unremarkable. Impression: 1. No active disease.
[2019-11-10] MEDS ORDERED: Aspirin Baby 81mg ORAL ONE (20:00)
[2019-11-10] MEDS ORDERED: Nitroglycerin Subl 0.4mg tab SL PRN (20:00)
[2019-11-10 20:19] LABS: HEMATOCRIT 39.1 % (42.0-52.0); HEMOGLOBIN 12.9 G/DL (14.2-18.0); MEAN CORPUSCULAR VOLUME 79 FL (80-99); PLATELET COUNT 152 K/UL (150-450); RED BLOOD COUNT 4.94 M/UL (4.70-6.10); RED CELL DISTRIBUTION WIDTH 14.3 % (11.6-14.8); WHITE BLOOD COUNT 21.5 K/UL (4.8-10.8)
[2019-11-10 20:25] LABS: INR 1.1 (0.9-1.1)
[2019-11-10 20:30] LABS: ANION GAP 13 mmol/L (5-15); BLOOD UREA NITROGEN 17 mg/dL (7-18); CARBON DIOXIDE 22 MMOL/L (21-32); CHLORIDE 103 MMOL/L (98-107); CREATININE 1.5 MG/DL (0.55-1.30); POTASSIUM 4.2 MMOL/L (3.5-5.1); SODIUM 138 MMOL/L (136-145)
[2019-11-10] MEDS ORDERED: Piperacillin/Tazobactam 3.375 GM in NS 110 ML IVPB ONE (20:30)
[2019-11-10 20:41] LABS: ALANINE AMINOTRANSFERASE 23 U/L (12-78); ALKALINE PHOSPHATASE 70 U/L (46-116); ASPARTATE AMINO TRANSFERASE 13 U/L (15-37)
[2019-11-10] MEDS ORDERED: Ketorolac 30mg Inj IV ONE (21:00)
[2019-11-10 21:53] LABS: APPEARANCE,URINE CLOUDY; BILIRUBIN, URINE 1+ (NEGATIVE); COLOR,URINE BROWN; GLUCOSE, URINE (UA) NEGATIVE (NEGATIVE); KETONES,URINE 3+ (NEGATIVE); LEUKOCYTE ESTERASE ,URINE 2+ (NEGATIVE); NITRITE,URINE NEGATIVE (NEGATIVE); PH,URINE 5 (4.5-8.0); PROTEIN,URINE 3+ (NEGATIVE); UROBILINOGEN,URINE 1 MG/DL (0.0-1.0)
[2019-11-10 22:00] VITALS: BP 120/70
--- NOTE | 2019-11-10 23:42 | NUR ---
ED Nurse Note: 2nd dose of NTG givern per ERMD
[2019-11-11] VITALS (7 sets, daily range): BP systolic 102–151; BP diastolic 53–77
--- NOTE | 2019-11-11 00:15 | NUR ---
TRANSFER TO FLOOR: Patient transferred to as ordered, per Dr Maria. Report given to KOREY Freeman. Belongings and medications given to . Family and or S/O informed of transfer.
--- NOTE | 2019-11-11 00:20 | NUR ---
NURSE NOTES: Pt arrived via gurney. Pt is awake, alert and oriented x4. In no acute distress, on room air, VSS, slightly elevated heart rate at 104. Pt complained of slight chest pain and headache. Belongings checked at bedside, and belongings sheet signed by patient. Did not wish to send valuables to a safe. Pt informed of unit and protocols, and verbalized understanding. Will contact MD and input plan of care. Pt is sitting in bed in semi fowlers, bed is locked in lowest position, side rails x2. Call light within reach.
--- NOTE | 2019-11-11 00:45 | NUR ---
NURSE NOTES: Received Dr's orders to give tylenol 650 q4 prn pain but no other pain medications, no IV pain medications. Drs collaborating on the case include Urbano Butler, Chana Tamayo, and Evan. will input orders and continue plan of care
--- NOTE | 2019-11-11 07:52 | NUR ---
NURSE NOTES: Received report from Calista in bed eating breakfast. Patient denies any pain at this time. No s/s of respiratory distress or acute distress noted. Bed is in lowest position, brakes engaged for safety. Call light is within reach. Will continue with the plan of care,
--- NOTE | 2019-11-11 07:54 | NUR ---
HAND-OFF: Report given to Aurelio NAIR.
[2019-11-11 08:18] LABS: HEMATOCRIT 35.6 % (42.0-52.0); HEMOGLOBIN 11.8 G/DL (14.2-18.0); MEAN CORPUSCULAR VOLUME 79 FL (80-99); PLATELET COUNT 139 K/UL (150-450); RED CELL DISTRIBUTION WIDTH 14.4 % (11.6-14.8); WHITE BLOOD COUNT 19.6 K/UL (4.8-10.8)
[2019-11-11] MEDS: metFORMIN 500mg tab ORAL SCH ×2 (08:54→17:04)
[2019-11-11] MEDS: Brimonidine 0.2% Opth Sol BOTH EYES SCH ×3 (08:55→17:05)
[2019-11-11] MEDS: Cosopt Opth Soln 10 mL Btl BOTH EYES SCH ×2 (08:55→17:05)
[2019-11-11] MEDS: Eliquis 5mg tablet ORAL SCH ×2 (08:55→17:04)
[2019-11-11 09:16] LABS: ALANINE AMINOTRANSFERASE 20 U/L (12-78); ALBUMIN 3.3 G/DL (3.4-5.0); ALBUMIN/GLOBULIN RATIO 0.9 (1.0-2.7); ALKALINE PHOSPHATASE 63 U/L (46-116); ANION GAP 11 mmol/L (5-15); ASPARTATE AMINO TRANSFERASE 20 U/L (15-37); BILIRUBIN,TOTAL 0.9 MG/DL (0.2-1.0); BLOOD UREA NITROGEN 23 mg/dL (7-18); CALCIUM 8.6 MG/DL (8.5-10.1); CARBON DIOXIDE 22 MMOL/L (21-32); CHLORIDE 105 MMOL/L (98-107); CREATININE 1.6 MG/DL (0.55-1.30); POTASSIUM 4.1 MMOL/L (3.5-5.1); SODIUM 138 MMOL/L (136-145)
--- NOTE | 2019-11-11 10:00 | NUR ---
*-* NO INSURANCE INFORMATION IN THE BAR UNABLE TO SEND CLINICALS OR REVIEWS *-*+
--- NOTE | 2019-11-11 10:17 | Consultation ---
History of Present Illness General Chief Complaint: Chest Pain Present Illness Allergies: Coded Allergies: HYDROMORPHONE (Verified Allergy, Unknown, 09/02/19) Uncoded Allergies: CONTRAST DYE (Allergy, Unknown, 03/15/19) IODINE CONTRAST (Allergy, Unknown, 09/26/19) Medication History Scheduled Apixaban (Eliquis), 5 MG PO BID, (Reported) Atorvastatin (Lipitor), 10 MG ORAL DAILY, (Reported) Brimonidine Tartrate* (Alphagan*), 1 DROP BOTH EYES TID, (Reported) Dorzolamide HCl/Timolol Maleat (Dorzolamide-Timolol Eye Drops), 1 DROP BOTH EYES TWICE A DAY, (Reported) Dorzolamide/Timolol/Pf (Cosopt Pf Eye Drops), 1 EACH OP BID, (Reported) Finasteride* (Proscar*), 5 MG ORAL DAILY, (Reported) Metformin Hcl* (Metformin Hcl*), 500 MG ORAL TWICE A DAY, (Reported) Tamsulosin Hcl (Tamsulosin Hcl*), 0.4 MG ORAL BEDTIME, (Reported) Travoprost (Benzalkonium) (Travatan 0.004% Eye Drop), 1 DROP BOTH EYES BEDTIME, (Reported) Patient History Healthcare decision maker Resuscitation status Advanced Directive on File Physical Exam Last 24 Hour Vital Signs Date Time Temp Pulse Resp B/P (MAP) Pulse Ox O2 Delivery O2 Flow Rate FiO2 11/11/19 08:09 Room Air 11/11/19 08:00 97.7 81 20 151/67 (95) 11/11/19 08:00 81 11/11/19 04:00 98.6 109 20 118/60 (79) 11/11/19 04:00 80 11/11/19 02:36 Room Air 11/11/19 02:20 98.8 11/11/19 00:25 98.6 104 21 120/69 (86) 11/11/19 00:23 92 11/11/19 00:15 98.8 104 18 125/75 97 Room Air 11/10/19 22:00 98.8 98 18 120/70 97 Room Air 11/10/19 20:09 125/75 11/10/19 19:47 112 18 Room Air 11/10/19 19:47 98.8 104 18 109/74 97 Room Air 11/10/19 19:34 98.8 112 18 109/74 (86) 97 Room Air Intake and Output 11/10/19 11/11/19 19:00 07:00 Intake Total 120 ml Balance 120 ml Intake Other 120 ml # Voids 2 Laboratory Tests Test 11/10/19 19:45 11/10/19 20:35 11/11/19 07:15 White Blood Count 21.5 K/UL (4.8-10.8) H 19.6 K/UL (4.8-10.8) H Red Blood Count 4.94 M/UL (4.70-6.10) 4.50 M/UL (4.70-6.10) L Hemoglobin 12.9 G/DL (14.2-18.0) L 11.8 G/DL (14.2-18.0) L Hematocrit 39.1 % (42.0-52.0) L 35.6 % (42.0-52.0) L Mean Corpuscular Volume 79 FL (80-99) L 79 FL (80-99) L Mean Corpuscular Hemoglobin 26.1 PG (27.0-31.0) L 26.3 PG (27.0-31.0) L Mean Corpuscular Hemoglobin Concent 32.9 G/DL (32.0-36.0) 33.2 G/DL (32.0-36.0) Red Cell Distribution Width 14.3 % (11.6-14.8) 14.4 % (11.6-14.8) Platelet Count 152 K/UL (150-450) 139 K/UL (150-450) L Mean Platelet Volume 9.5 FL (6.5-10.1) 9.7 FL (6.5-10.1) Neutrophils (%) (Auto) % (45.0-75.0) % (45.0-75.0) Lymphocytes (%) (Auto) % (20.0-45.0) % (20.0-45.0) Monocytes (%) (Auto) % (1.0-10.0) % (1.0-10.0) Eosinophils (%) (Auto) % (0.0-3.0) % (0.0-3.0) Basophils (%) (Auto) % (0.0-2.0) % (0.0-2.0) Differential Total Cells Counted 100 Neutrophils % (Manual) 92 % (45-75) H Pending Lymphocytes % (Manual) 4 % (20-45) L Pending Monocytes % (Manual) 4 % (1-10) Eosinophils % (Manual) 0 % (0-3) Basophils % (Manual) 0 % (0-2) Band Neutrophils 0 % (0-8) Platelet Estimate Decreased L Pending Platelet Morphology Normal Pending Anisocytosis 1+ Microcytosis 1+ Prothrombin Time 11.8 SEC (9.30-11.50) H Prothromb Time International Ratio 1.1 (0.9-1.1) Activated Partial Thromboplast Time 33 SEC (23-33) Urine Color Brown Urine Appearance Cloudy Urine pH 5 (4.5-8.0) Urine Specific [place] 1.025 (1.005-1.035) Urine Protein 3+ (NEGATIVE) H Urine Glucose (UA) Negative (NEGATIVE) Urine Ketones 3+ (NEGATIVE) H Urine Blood 1+ (NEGATIVE) H Urine Nitrite Negative (NEGATIVE) Urine Bilirubin 1+ (NEGATIVE) H Urine Ictotest Negative (NEGATIVE) Urine Urobilinogen 1 MG/DL (0.0-1.0) H Urine Leukocyte Esterase 2+ (NEGATIVE) H Urine RBC 0-2 /HPF (0 - 0) H Urine WBC 20-30 /HPF (0 - 0) H Urine Squamous Epithelial Cells Occasional /LPF Urine Bacteria Few /HPF (NONE) Sodium Level 138 MMOL/L (136-145) 138 MMOL/L (136-145) Potassium Level 4.2 MMOL/L (3.5-5.1) 4.1 MMOL/L (3.5-5.1) Chloride Level 103 MMOL/L (98-107) 105 MMOL/L (98-107) Carbon Dioxide Level 22 MMOL/L (21-32) 22 MMOL/L (21-32) Anion Gap 13 mmol/L (5-15) 11 mmol/L (5-15) Blood Urea Nitrogen 17 mg/dL (7-18) 23 mg/dL (7-18) H Creatinine 1.5 MG/DL (0.55-1.30) H 1.6 MG/DL (0.55-1.30) H Estimat Glomerular Filtration Rate 57.4 mL/min (>60) 53.3 mL/min (>60) Glucose Level 161 MG/DL (74-106) H 134 MG/DL (74-106) H Calcium Level 9.0 MG/DL (8.5-10.1) 8.6 MG/DL (8.5-10.1) Total Bilirubin 1.0 MG/DL (0.2-1.0) 0.9 MG/DL (0.2-1.0) Aspartate Amino Transf (AST/SGOT) 13 U/L (15-37) L 20 U/L (15-37) Alanine Aminotransferase (ALT/SGPT) 23 U/L (12-78) 20 U/L (12-78) Alkaline Phosphatase 70 U/L (46-116) 63 U/L (46-116) Troponin I 0.000 ng/mL (0.000-0.056) 0.000 ng/mL (0.000-0.056) Pro-B-Type Natriuretic Peptide 128 pg/mL (0-125) H Total Protein 8.0 G/DL (6.4-8.2) 7.1 G/DL (6.4-8.2) Albumin 4.0 G/DL (3.4-5.0) 3.3 G/DL (3.4-5.0) L Globulin 4.0 g/dL 3.8 g/dL Albumin/Globulin Ratio 1.0 (1.0-2.7) 0.9 (1.0-2.7) L Lactic Acid Level 1.60 mmol/L (0.4-2.0) Microbiology Date/Time Source Procedure Growth Status 11/10/19 19:45 Urine,Clean Catch Urine Culture - Preliminary NO GROWTH Resulted Height (Feet): 5 Height (Inches): 8.00 Weight (Pounds): 210 Medications Current Medications Medications (Trade) Dose Ordered Sig/Kristan Route PRN Reason Start Time Stop Time Status Last Admin Dose Admin Acetaminophen (Tylenol) 650 mg Q4H PRN ORAL Mild Pain (Pain Scale 1-3) 11/11/19 00:15 12/11/19 00:14 11/11/19 01:50 Apixaban (Eliquis) 5 mg BID ORAL 11/11/19 09:00 02/09/20 08:59 5/26/20 08:55 Atorvastatin Calcium (Lipitor) 10 mg DAILY ORAL 11/11/19 09:00 02/09/20 08:59 11/11/19 08:54 Brimonidine Tartrate (Alphagan) 1 drop TID BOTH EYES 11/11/19 09:00 02/09/20 08:59 11/11/19 08:55 Dorzolamide/ Timolol (Cosopt) 1 drop TWICE A DAY BOTH EYES 11/11/19 09:00 12/11/19 08:59 11/11/19 08:55 Levofloxacin 100 ml @ 100 mls/hr Q24H IVPB 11/11/19 11:00 11/18/19 10:59 Metformin HCl (Glucophage) 500 mg TWICE A DAY ORAL 11/11/19 09:00 12/11/19 08:59 11/11/19 08:54 Nitroglycerin (Ntg) 0.4 mg Q5M PRN SL Prn Chest Pain 11/10/19 20:00 12/10/19 19:59 11/10/19 20:09 Assessment/Plan Assessment/Plan: Hematology Consultation REQ MD: Carmen Mckee RFC: PE and ivc filter hx DOS: 11/11/2019 ID 64-year-old male with history of CHF, PE/DVT, and pacemaker here complaining of few hours of sudden onset of left-sided chest pain without radiation. Reports that the pain started as he was resting. Denies any exertion. Patient has been [place] ER multiple times for chest pain, is requesting to be admitted. Blood draw had to be done by the manhole stripper from the laboratories patient is a hard stick. Denies any dizziness and headache at this time. Patient is currently on Eliquis. Last VQ scan was done April 2019 and within normal limits. Patient was evaluated by , residential designer when was admitted to [facility] a few months ago and was cleared. Sitting comfortably with stable vital signs. No unilateral or generalized weakness noted. Neurovascularly intact. Denies abdominal pain, nausea vomiting, cough and congestion. I have seen him many times in the past, also at [facility], is well known to me, is currently on eliquis bid dosing, he has a history of major noncompliance with care Allergies: HYDROMORPHONE (Verified Allergy, Unknown, 09/02/19) Uncoded Allergies: CONTRAST DYE (Allergy, Unknown, 03/15/19) IODINE CONTRAST (Allergy, Unknown, 09/26/19) COVID-19 Screening Contact w/high risk pt: No Recent Travel to affected area: No Experienced COVID-19 symptoms?: Yes COVID-19 symptoms experienced: Shortness of Breath Patient History Past Medical History: see triage record Past Surgical History: none Pertinent Family History: none Immunizations: UTD Reviewed Nursing Documentation: PMH: Agreed; PSxH: Agreed Nursing Documentation-PMH Hx Cardiac Problems: Yes - , glaucoma Hx Hypertension: Yes Hx Pacemaker: Yes Hx Asthma: No Hx COPD: Yes Hx Diabetes: Yes Hx Cancer: No Hx Gastrointestinal Problems: No Hx Dialysis: No Hx Neurological Problems: No Hx Cerebrovascular Accident: No Hx Seizures: No ROS (review of systems): Constitutional: No fever, no chills, no night sweats, no fatigue Skin: No rashes, lumps, itchiness, dryness HEENT: No CRUZ, ear ache, visual changes, double vision, nosebleeds Breasts: No lumps, pain, discharge Pulmonary: No cough, sputum, shortness of breath, coughing up blood Cardiovascular: No chest pain, tightness, palpitations, syncope, PND GI: No nausea, vomiting, diarrhea, melena, hematochezia, change in appetite, : No dysuria, frequency, urgency, urinary incontinence, foamy urine Musculoskeletal: No joint swelling or muscle pain, trauma, back pain Neurologic: No dizziness, fainting, seizures, changes in smell or taste Psychiatric: No nervousness, stress, or depression, anxiety, hallucinations Endocrine: No weight change, heat or cold intolerance, tremor, insomnia Physical Exam: Vitals: reviewed General: NAD HEENT: nc, at Neck: supple Chest: clear breath sounds bilaterally Cardiovascular: RRR, no s3, s4 Neuro: alert and oriented Labs noted Imaging: in emr Assessment and Recs # Pulmonary embolism, status post open embolectomy history. The patient has multiple V/Q scan had been negative. Most recent one in April 2019 at [facility] was also negative. --> He is on Eliquis 5 mg b.i.d. --> continue at current dosing -> is s/p ivc filter as well --> as per cards, ok to continue eliquis # Leukocytosis upon admission --> r/o [id number] --> cxr neg --> per id, abx # Anemia of chronic disease --> trend h/h as needed --> currently is stable # Atypical chest pain and History of permanent pacemaker. --> in past refused stress test, to get stress treadmill test --> per Dr. Zayas # S/P [facility] pacer that was interrogated recently and showed Nl Fx --> interrogation per cards # Hyperlipidemia, on Lipitor. # Diabetes, on metformin.tus post embolectomy. # RA # NM 2017 DW RN and appreciate consultation Adilson Gordon MD November 11, 2019 10:17
--- NOTE | 2019-11-11 12:25 | Cardiac Electrophysiology PN ---
Subjective Subjective [id number] Objective Last 24 Hour Vital Signs Date Time Temp Pulse Resp B/P (MAP) Pulse Ox O2 Delivery O2 Flow Rate FiO2 11/11/19 08:09 Room Air 11/11/19 08:00 97.7 81 20 151/67 (95) 11/11/19 08:00 81 11/11/19 04:00 98.6 109 20 118/60 (79) 11/11/19 04:00 80 11/11/19 02:36 Room Air 11/11/19 02:20 98.8 11/11/19 00:25 98.6 104 21 120/69 (86) 11/11/19 00:23 92 11/11/19 00:15 98.8 104 18 125/75 97 Room Air 11/10/19 22:00 98.8 98 18 120/70 97 Room Air 11/10/19 20:09 125/75 11/10/19 19:47 112 18 Room Air 11/10/19 19:47 98.8 104 18 109/74 97 Room Air 11/10/19 19:34 98.8 112 18 109/74 (86) 97 Room Air Intake and Output 11/10/19 11/11/19 19:00 07:00 Intake Total 120 ml Balance 120 ml Intake Other 120 ml # Voids 2 Laboratory Tests Test 11/10/19 19:45 11/10/19 20:35 11/11/19 07:15 White Blood Count 21.5 K/UL (4.8-10.8) H 19.6 K/UL (4.8-10.8) H Red Blood Count 4.94 M/UL (4.70-6.10) 4.50 M/UL (4.70-6.10) L Hemoglobin 12.9 G/DL (14.2-18.0) L 11.8 G/DL (14.2-18.0) L Hematocrit 39.1 % (42.0-52.0) L 35.6 % (42.0-52.0) L Mean Corpuscular Volume 79 FL (80-99) L 79 FL (80-99) L Mean Corpuscular Hemoglobin 26.1 PG (27.0-31.0) L 26.3 PG (27.0-31.0) L Mean Corpuscular Hemoglobin Concent 32.9 G/DL (32.0-36.0) 33.2 G/DL (32.0-36.0) Red Cell Distribution Width 14.3 % (11.6-14.8) 14.4 % (11.6-14.8) Platelet Count 152 K/UL (150-450) 139 K/UL (150-450) L Mean Platelet Volume 9.5 FL (6.5-10.1) 9.7 FL (6.5-10.1) Neutrophils (%) (Auto) % (45.0-75.0) % (45.0-75.0) Lymphocytes (%) (Auto) % (20.0-45.0) % (20.0-45.0) Monocytes (%) (Auto) % (1.0-10.0) % (1.0-10.0) Eosinophils (%) (Auto) % (0.0-3.0) % (0.0-3.0) Basophils (%) (Auto) % (0.0-2.0) % (0.0-2.0) Differential Total Cells Counted 100 100 Neutrophils % (Manual) 92 % (45-75) H 84 % (45-75) H Lymphocytes % (Manual) 4 % (20-45) L 7 % (20-45) L Monocytes % (Manual) 4 % (1-10) 9 % (1-10) Eosinophils % (Manual) 0 % (0-3) 0 % (0-3) Basophils % (Manual) 0 % (0-2) 0 % (0-2) Band Neutrophils 0 % (0-8) 0 % (0-8) Platelet Estimate Decreased L Decreased L Platelet Morphology Normal Normal Anisocytosis 1+ 1+ Microcytosis 1+ Prothrombin Time 11.8 SEC (9.30-11.50) H Prothromb Time International Ratio 1.1 (0.9-1.1) Activated Partial Thromboplast Time 33 SEC (23-33) Urine Color Brown Urine Appearance Cloudy Urine pH 5 (4.5-8.0) Urine Specific [place] 1.025 (1.005-1.035) Urine Protein 3+ (NEGATIVE) H Urine Glucose (UA) Negative (NEGATIVE) Urine Ketones 3+ (NEGATIVE) H Urine Blood 1+ (NEGATIVE) H Urine Nitrite Negative (NEGATIVE) Urine Bilirubin 1+ (NEGATIVE) H Urine Ictotest Negative (NEGATIVE) Urine Urobilinogen 1 MG/DL (0.0-1.0) H Urine Leukocyte Esterase 2+ (NEGATIVE) H Urine RBC 0-2 /HPF (0 - 0) H Urine WBC 20-30 /HPF (0 - 0) H Urine Squamous Epithelial Cells Occasional /LPF Urine Bacteria Few /HPF (NONE) Sodium Level 138 MMOL/L (136-145) 138 MMOL/L (136-145) Potassium Level 4.2 MMOL/L (3.5-5.1) 4.1 MMOL/L (3.5-5.1) Chloride Level 103 MMOL/L (98-107) 105 MMOL/L (98-107) Carbon Dioxide Level 22 MMOL/L (21-32) 22 MMOL/L (21-32) Anion Gap 13 mmol/L (5-15) 11 mmol/L (5-15) Blood Urea Nitrogen 17 mg/dL (7-18) 23 mg/dL (7-18) H Creatinine 1.5 MG/DL (0.55-1.30) H 1.6 MG/DL (0.55-1.30) H Estimat Glomerular Filtration Rate 57.4 mL/min (>60) 53.3 mL/min (>60) Glucose Level 161 MG/DL (74-106) H 134 MG/DL (74-106) H Calcium Level 9.0 MG/DL (8.5-10.1) 8.6 MG/DL (8.5-10.1) Total Bilirubin 1.0 MG/DL (0.2-1.0) 0.9 MG/DL (0.2-1.0) Aspartate Amino Transf (AST/SGOT) 13 U/L (15-37) L 20 U/L (15-37) Alanine Aminotransferase (ALT/SGPT) 23 U/L (12-78) 20 U/L (12-78) Alkaline Phosphatase 70 U/L (46-116) 63 U/L (46-116) Troponin I 0.000 ng/mL (0.000-0.056) 0.000 ng/mL (0.000-0.056) Pro-B-Type Natriuretic Peptide 128 pg/mL (0-125) H Total Protein 8.0 G/DL (6.4-8.2) 7.1 G/DL (6.4-8.2) Albumin 4.0 G/DL (3.4-5.0) 3.3 G/DL (3.4-5.0) L Globulin 4.0 g/dL 3.8 g/dL Albumin/Globulin Ratio 1.0 (1.0-2.7) 0.9 (1.0-2.7) L Lactic Acid Level 1.60 mmol/L (0.4-2.0) Hypochromasia 1+ Prostate Specific Antigen 23.03 ng/mL (0.13-4.0) H Microbiology Date/Time Source Procedure Growth Status 11/10/19 19:45 Urine,Clean Catch Urine Culture - Preliminary NO GROWTH Resulted Gato aZyas MD November 11, 2019 12:24
--- NOTE | 2019-11-11 12:54 | NUR ---
CASE MANAGEMENT:REVIEW 64 YR OLD MALE WHO [facility], WALKED IN TO ER CC: CHEST PAIN AND HEADACHE SI: ACS 98.7 112 18 109/74 97% ON RA WBC+21.5 CR+1.5 GLUCOSE+161 IS: ASA PO URINE CX CHEST XRAY BLOOD CX : TO TELEMETRY PLAN: 2DECHO EKG
--- NOTE | 2019-11-11 14:00 | NUR ---
DISCHARGE PLANNING PATIENT IS HERE UNDER [employer] INSURANCE PATIENT CANNOT CALL MEDICARE AND APPEAL HIS DISCHARGE BECAUSE HE IS NOT HERE UNDER MEDICARE
[2019-11-11] MEDS: Phenazopyridine 200mg tab ORAL SCH (17:27)
--- NOTE | 2019-11-11 18:00 | Consultation ---
DATE OF CONSULTATION: 11/11/2019 INFECTIOUS DISEASE CONSULTATION CONSULTING PHYSICIAN: Urbano Butler MD. PRIMARY ATTENDING: Carmen Maria MD. REASON FOR CONSULT: UTI, leukocytosis. HISTORY OF PRESENT ILLNESS: This is a 64-year-old male admitted yesterday from home complaining of chest pain, shortness of breath on exertion. Chest pain was 8/10. Patient was concerned about his pacemaker. Patient had history of recent procedure in urologist's office 3 days ago, likely it was cystoscopy. After the procedure, patient developed dysuria. On first day after the procedure, had hematuria, but hematuria is resolved. PAST MEDICAL HISTORY: Status post pacemaker, pulmonary emboli, has thoracotomy and embolectomy, BPH, prediabetic, COPD, personality disorder. PAST SURGICAL HISTORY: Thoracotomy, pacemaker, embolectomy, glaucoma surgery x2. ALLERGIES: Allergic to contrast, may be hydromorphone. MEDICATIONS: Getting Levaquin, apixaban, atorvastatin, Alphagan, Cosopt eyedrops, metformin, Tylenol, nitroglycerin. Get a dose of Zosyn in the ER. Get a dose of ketorolac in the ER. REVIEW OF SYSTEMS: As per history of present illness. Denies any fever, chills. PHYSICAL EXAMINATION: VITAL SIGNS: Temperature 97.7, pulse 81, blood pressure 151/67. GENERAL APPEARANCE: Seems to be well developed, no acute distress. HEAD AND NECK: Marydel conjunctivae. No oral lesion. HEART: Normal rate. Has pacemaker on the left side. ABDOMEN: Soft, nontender. GENITOURINARY: Normal genitalia. EXTREMITIES: No edema. NEUROLOGIC: He is awake, alert, oriented x2. LABORATORY DATA: WBC at the time of admission was 21.5, now it is 19.6, hemoglobin 11.8, hematocrit 35.6, platelets 139. Sodium 138, potassium 4.1, chloride 105, bicarb 22, BUN 23, creatinine 1.6. Lactic acid is within normal limit 1.6. UA showed wbc's of 20 to 30, leukocyte esterase 2+, ketones 3+, blood 1+. Urine culture so far showed no growth. Troponin was negative. Chest x-ray was negative. IMPRESSION: Leukocytosis, improving. Has pyuria, likely UTI. So far, cultures are negative. Has recent urologic procedure. Has history of COPD. Has diabetes mellitus, BPH, hypertension, history of pulmonary emboli, and glaucoma. RECOMMENDATION: Continue with Levaquin. He will be followed up by urologist. We will follow up the cultures. At the end of my exam, I thank Dr. Maria for involving me in the care of this patient. Urbano Butler M.D. DR: KATHIE JOB#: [id number] CC: MINE
--- NOTE | 2019-11-11 19:00 | Consultation ---
DATE OF CONSULTATION: 11/11/2019 PULMONARY CONSULTATION CONSULTING PHYSICIAN: Burke Tamayo MD. HISTORY OF PRESENT ILLNESS: This is a 64-year-old male who has had multiple hospitalizations for chest pain. He came to the hospital again with chest pain. He has a known history of CAD, hypertension, BPH, diabetes mellitus, previous history of PE and DVT, on Eliquis, COPD. He has also had an AICD in place. Patient started having chest pain. He came to the hospital. He is requesting pain medication on my evaluation. PREVIOUS SURGERIES: Include thoracotomy, pacemaker placement, previous embolectomy, glaucoma surgery. PAST MEDICAL HISTORY: As discussed above notable for CAD, ICD placement, PE, BPH, diabetes mellitus, COPD. ALLERGIES: To contrast dye and iodine. REVIEW OF SYSTEMS: Denies any headaches, hematemesis, melena, hematochezia, night sweats, or weight loss. HOME MEDICATIONS: Reviewed and reconciled in chart. PHYSICAL EXAMINATION: GENERAL: Reveals a 64-year-old male. HEENT: Unremarkable. LUNGS: Clear breath sounds bilaterally. ABDOMEN: Soft. . VITAL SIGNS: Blood pressure 150/60, heart rate 84, respirations , O2 saturation 96% on room air. LABORATORY DATA: Lab testing is unremarkable except for white count of 19,000, hemoglobin 11.8. Chemistries, creatinine 1.6. PSA 23. MICROBIOLOGY: Negative. IMAGING STUDIES: X-ray chest was obtained, which shows clear lung owen equal bilaterally. IMPRESSION: 1. Chest pain. 2. Pacemaker. 3. Elevated PSA. 4. COPD. 5. Diabetes mellitus. 6. Chronic pain. DISCUSSION: Admit to the hospital. Continue anticoagulation for history of PE, DVT, and previous embolectomy. Oncology consultation is noted. We will order pulmonary hygiene and oxygen. Follow carefully. Burke Tamayo M.D. DR: OREN JOB#: [id number] CC:
--- NOTE | 2019-11-11 19:20 | NUR ---
HAND-OFF: Report given to Naz. Endorsed plan of care. Patient is in stable condition.
--- NOTE | 2019-11-11 19:50 | NUR ---
NURSE NOTES: Received pt from KOREY Carey. Pt awake, alert, and talkative. Bed in lowest position. Call light within reach. Will continue to monitor.
--- NOTE | 2019-11-11 22:33 | NUR ---
NURSE NOTES: Called and left a message with Dr. Maria regarding pts request for pain meds. Awaiting call back.
--- NOTE | 2019-11-11 23:15 | Consultation ---
DATE OF CONSULTATION: 11/11/2019 CARDIOLOGY CONSULTATION REFERRING PHYSICIAN: Carmen Maria M.D. REASON FOR CONSULTATION: Management of pacemaker and chest pain. HISTORY OF PRESENT ILLNESS: The patient is a 64-year-old man with multiple previous hospitalizations for atypical chest pains. The patient has history of pulmonary embolism, status post open embolectomy, has a history of [employer] [facility] pacemaker implantation at outside facility. The patient also has hyperlipidemia, diabetes and glaucoma. The patient has multiple hospitalizations for chest pain and has received a stress test as recently as September 04, 2019. The patient presented to the emergency room for his chest pain and shortness of breath. The patient also has dysuria that started yesterday. The patient apparently was seen by urologist, had a procedure in his office and that includes some instrumentation, but he does not remember what was it. The patient was admitted and Cardiology consultation was obtained for further evaluation. REVIEW OF SYSTEMS: Negative other than what was mentioned in the history of present illness. PAST MEDICAL HISTORY: As mentioned above. FAMILY HISTORY: Noncontributory. SOCIAL HISTORY: He lives at home. Does not smoke or drink alcohol. PHYSICAL EXAMINATION: VITAL SIGNS: Blood pressure is 122/77, pulse is 78, respirations 18, and temperature 98.1. HEAD AND NECK: Showed no JVD. LUNGS: Clear. CARDIOVASCULAR: Shows regular S1 and S2 with no gallop. ABDOMEN: Soft. EXTREMITIES: No pitting edema. SKIN: The pacemaker in left subclavian has healed. LABORATORY AND DIAGNOSTIC DATA: Labs show white count was initially of 21.5, currently 19.6, hemoglobin 11.80, hematocrit 35.6, and platelet count 139. Sodium is 138, potassium 4.1, BUN of 22, creatinine 1.6, and glucose of 53. Troponin negative x2. ASSESSMENT AND PLAN: 1. Chest pain. The patient is already ruled out for myocardial infarction. The patient has multiple stress tests in the past that have been negative as well as multiple V/Q scans that have been negative. After the patient's white count normalized, we will try to reschedule a stress test if he agrees to do it. 2. Status post [employer] pacemaker with normal function by recent interrogation. 3. History of pulmonary embolism, status post embolectomy in the past. Continue Eliquis 5 mg b.i.d. 4. Diabetes, on metformin. 5. Glaucoma. 6[place] [address]. The patient was started on Levaquin. 7. Hyperlipidemia, on Lipitor. 8. Status post urology procedure in the office, nature of which is not clear at this point. Thank you very much for allowing me to participate in the care of this patient. Please do not hesitate to contact me for any questions regarding my evaluation. Gato Zayas M.D. DR: Saniya JOB#: [id number] CC:
--- NOTE | 2019-11-12 | Consultation ---
DATE OF CONSULTATION: 11/11/2019 UROLOGY CONSULTATION CONSULTING PHYSICIAN: Oneil Pyle MD. ATTENDING/REFERRING PHYSICIAN: Carmen Maria MD. CHIEF COMPLAINT/HISTORY OF PRESENT ILLNESS: I was asked by Dr. Maria to evaluate this pleasant 64-year-old gentleman regarding a history of likely urinary tract infection in the setting of recent cystoscopy. Briefly, the patient has a history of BPH at baseline. He is followed by Dr. Fernando Machuca for the same. He is maintained on Flomax and finasteride for his voiding symptoms. On Sunday, he had a cystoscopy for routine surveillance of his prostate and bladder. Afterwards, he developed some dysuria. Dr. Machuca apparently recommended some antibiotics, but the patient failed to improve. As such, presented here. Given the above, I was asked to evaluate the patient. PAST MEDICAL HISTORY: 1. BPH with bladder outlet obstruction. 2. CHF. 3. PE/DVT. 4. Chest pain. 5. Myocardial infarction. 6. Glaucoma. 7. COPD. 8. Diabetes. PAST SURGICAL HISTORY: Pacemaker placement and IVC filter placement. MEDICATIONS: Please see the chart for current medications administration details. Briefly, I have started the patient on levofloxacin for antibiotic coverage. ALLERGIES: Include hydromorphone. SOCIAL HISTORY: Unremarkable for tobacco, alcohol, or drug use. FAMILY HISTORY: Noncontributory. REVIEW OF SYSTEMS: A 14-system review of systems unremarkable outside what is described above. PHYSICAL EXAMINATION: GENERAL: The patient is an older gentleman, awake, alert, and oriented x4, pleasant, in no obvious distress. HEENT: NC/AT. EOMI. Oropharynx clear. NECK: Supple. Full range of motion. CHEST: Within normal limits. ABDOMEN: Soft, nontender, nondistended. EXTREMITIES: Warm, well perfused. No cyanosis, clubbing, or edema. BACK: No CVA tenderness to percussion. NEUROLOGIC: Grossly nonfocal. GENITOURINARY: Reveals a circumcised male phallus. No discharge, lesions, or curvature. There are bilateral descended testes and cord structures with no masses or tenderness to palpation. LABORATORY DATA: Sodium 138, potassium 4.1, chloride 105, bicarbonte 22, BUN 23, creatinine 1.6, glucose 134, lactic acid 1.6. Calcium 8.6. LFTs within normal limits. Troponin negative. PSA 23 in the setting of infection. White blood cell count 19.6, down from 21.5 on admission, hematocrit 35.6, platelets 139. Urinalysis specific gravity 1.025, pH 5.0. Dip test notable for 3+ protein, 3+ ketones, 1+ occult blood, 1+ bilirubin, and 2+ leukocyte esterase. Microanalysis with 20 to 30 white blood cells per high-power field and few bacteria seen. PT 11.8, INR 1.1, PTT 33. DIAGNOSTIC IMAGING: Chest x-ray, no active disease. ASSESSMENT AND PLAN: In summary, patient is a 64-year-old with a longstanding history of BPH. He is maintained on Flomax and finasteride for the same. On Sunday, he had a cystoscopy done to evaluate the same. Afterwards, the patient developed dysuria and signs and symptoms of urinary tract infection. He failed to improve despite oral antibiotics. He presented here for the same. Physical exam is essentially unremarkable. Laboratory data is notable for evidence of pyuria and the culture is pending. There is no relevant diagnostic imaging. I discussed these findings today with the patient at the bedside. We will keep him on Levaquin and I will start him on some Pyridium for his discomfort. We will await culture results and adjust antibiotics as necessary. Once the patient is otherwise stable and culture results are back, we can discharge him home on 7 to 10 days of antibiotics to complete therapy for the same. He can follow up with Dr. Machuca in the office after the same. Thank you for allowing me to participate in the care of this nice gentleman. Please do not hesitate to contact me with any questions that you may further have regarding his care. I will see him with you as needed. Oneil yPle M.D. DR: TATUM JOB#: [id number] CC:
--- NOTE | 2019-11-12 00:55 | NUR ---
NURSE NOTES: Called and left a message with Dr. Zayas and Dr. Shook regarding pts complaints of pain. Awaiting call back.
--- NOTE | 2019-11-12 02:35 | NUR ---
NURSE NOTES: Both Dr. Zayas and Dr. Barnes reported that they already gave pain meds for pts pain. Pt is unhappy with choice of meds. I instructed him to talk to them in the morning. Will continue to monitor.
--- NOTE | 2019-11-12 02:45 | History and Physical Report ---
DATE OF ADMISSION: 11/10/2019 HISTORY OF PRESENT ILLNESS: The patient is admitted for chest pain, rule out acute coronary syndrome. Has history of PE with IVC filter and is on Eliquis with history of previous TN and also pacemaker, so admitted for those reasons because of those risk factors. The patient is at moderate to high risk for acute coronary artery syndrome. The patient, however, comes to the hospital frequently and has frequent admissions for chest pain. The patient's first troponin was negative. The patient also has leukocytosis, but slightly tachycardic and . At present, the patient also has a recent instrumentation by Urology for BPH. The patient also denied fever or chills. The patient's chest pain was radiating to the left and also associated with some headache as well. Also, had exertional dyspnea as well and also had palpitation as well. Denied nausea, vomiting, or diarrhea. The patient also has leg edema. Also complained of dysuria. The patient was started on antibiotics after he saw his urologist for dysuria and apparently had some procedures done by urologist recently. He denies hematuria. PAST MEDICAL HISTORY: Significant for CAD, status post ICD/pacemaker, hyperlipidemia, history of pulmonary embolism, history of BPH, diabetes, COPD, and personality disorder. PAST SURGICAL HISTORY: Thoracotomy, pacemaker, ICD, embolectomy, glaucoma surgery, and also IVC filter. FAMILY HISTORY: Does have history of heart disease. SOCIAL HISTORY: Does have history of smoking. Denies history of drug or alcohol abuse. REVIEW OF SYSTEMS: HEENT: Does have headaches. Respiratory: Reports exertional shortness of breath as well as exertional dyspnea. Denies cough. Cardiovascular: Reports chest pain radiating to the left for couple of days associated with headache, palpitations, and shortness of breath. Gastrointestinal: Denies nausea, vomiting, diarrhea. Denies heartburn. Extremities: Does have chronic pain syndrome, which is not acute. Central Nervous System: Denies changes in speech pattern. Does have headaches. PHYSICAL EXAMINATION: Vital Signs: Temperature is 98.6, pulse is 80, blood pressure 118/60. HEENT: PERRLA. CHEST: Clear to auscultation. CARDIOVASCULAR: Regular rate and rhythm ABDOMEN: Soft, nontender. EXTREMITIES: 1+ edema. NEUROLOGICAL: He is able to move the extremities. LABORATORY DATA: WBC of 21.5, hemoglobin of 12.9, platelet 152. Sodium 138, potassium 4.1, BUN of 23, creatinine 1.6, glucose of 134. PSA of 23. ASSESSMENT AND PLAN: 1. Chest pain, rule out acute coronary syndrome. 2. Azotemia. 3. Leukocytosis. 4. Rule out sepsis. 5. History of PE, history of IVC filter. 6. History of previous TN. 7. History of tachycardia. Recently, urologist. I have asked Dr. Pyle as well as Dr. Urbano García, Dr. Burke Tamayo, Dr. Garcia, Dr. Adilson Gordon to see the patient for the treatment of UTI as well as for chest pain, rule out acute coronary syndrome as well as for the history of PE as well as for the new instrumentation procedure done by the urologist. I have consulted Dr. Pyle for his BPH to rule out UTI as well. Carmen Maria M.D. DR: MARCOS JOB#: [id number] CC:
[2019-11-12 04:00] VITALS: BP 117/64
--- NOTE | 2019-11-12 07:40 | NUR ---
HAND-OFF: Report given to noemi Watkins. pt stable.
--- NOTE | 2019-11-12 07:50 | NUR ---
NURSE NOTES: Received report from KOREY Childs. Pt awake, alert, oriented x4. Able to make things known. No c/o pain/discomfort noted. IV access patent and intact. Bed in lowest position. siderails are up x2. bed alarm and kept lock @ all times. Call light within reach. Will continue to monitor.
[2019-11-12 08:00] VITALS: BP 119/63
[2019-11-12] MEDS: metFORMIN 500mg tab ORAL SCH ×2 (08:29→17:36)
[2019-11-12] MEDS: Eliquis 5mg tablet ORAL SCH ×2 (08:29→17:36)
[2019-11-12] MEDS: Brimonidine 0.2% Opth Sol BOTH EYES SCH ×3 (08:30→17:36)
[2019-11-12] MEDS: Cosopt Opth Soln 10 mL Btl BOTH EYES SCH ×2 (08:30→17:38)
[2019-11-12] MEDS: Phenazopyridine 200mg tab ORAL SCH ×2 (08:30→17:36)
--- NOTE | 2019-11-12 09:22 | NUR ---
CASE MANAGEMENT:REVIEW 11/12/19 SI: ACS. AZOTEMIA. UTI 97.9 77 18 119/63 99% ON RA CROSS CUT SAWYER+23.03 TROPONIN(-) X3 IS: PYRIDIUM PO BID IV LEVAQUIN Q24 ELIQUIS PO BID METFORMIN PO BID : TELEMETRY STATUS DCP: PATIENT IS FROM HOME
--- NOTE | 2019-11-12 09:56 | NUR ---
*-* INSURANCE *-* ALL CLINICALS AND REVIEWS HAVE BEEN FAXED TO: [employer] [facility] AUTH# [id number] FAX ALL CLINICALS TO [phone]
--- NOTE | 2019-11-12 10:45 | Pulmonology Progress Note ---
Subjective Interval Events: None new Constitutional: Reports: no symptoms HEENT: Repors: no symptoms Respiratory: Reports: no symptoms Cardiovascular: Reports: no symptoms Allergies: Coded Allergies: HYDROMORPHONE (Verified Allergy, Unknown, 09/02/19) Uncoded Allergies: CONTRAST DYE (Allergy, Unknown, 03/15/19) IODINE CONTRAST (Allergy, Unknown, 09/26/19) Objective Last 24 Hour Vital Signs Date Time Temp Pulse Resp B/P (MAP) Pulse Ox O2 Delivery O2 Flow Rate FiO2 11/12/19 09:00 Room Air 11/12/19 08:00 97.9 77 18 119/63 (81) 99 11/12/19 08:00 76 11/12/19 04:00 69 117/64 (81) 11/12/19 04:00 68 11/12/19 00:00 73 11/11/19 23:59 97.7 77 102/75 (84) 97 11/11/19 21:48 97.5 67 109/53 (71) 11/11/19 21:00 Room Air 11/11/19 16:00 79 11/11/19 16:00 98.1 99 20 109/55 (73) 99 11/11/19 12:00 78 11/11/19 12:00 98.1 78 20 122/77 (92) 98 Intake and Output 11/11/19 11/12/19 19:00 07:00 Intake Total 480 ml Balance 480 ml Intake Oral 480 ml # Voids 3 2 General Appearance: no acute distress HEENT: normocephalic Respiratory: chest wall non-tender, lungs clear Cardiovascular: normal peripheral pulses, normal rate Abdomen: normal bowel sounds Microbiology Date/Time Source Procedure Growth Status 11/10/19 20:30 Blood Blood Culture - Preliminary NO GROWTH AFTER 24 HOURS Resulted 11/10/19 20:15 Blood Blood Culture - Preliminary NO GROWTH AFTER 24 HOURS Resulted 11/10/19 19:45 Urine,Clean Catch Urine Culture - Preliminary Staphylococcus Sp Coag Neg Resulted Laboratory Tests 11/12/19 05:38: Troponin I 0.000 Current Medications Medications (Trade) Dose Ordered Sig/Kristan Route PRN Reason Start Time Stop Time Status Last Admin Dose Admin Acetaminophen (Tylenol) 650 mg Q4H PRN ORAL Mild Pain (Pain Scale 1-3) 11/11/19 00:15 12/11/19 00:14 11/12/19 00:04 Apixaban (Eliquis) 5 mg BID ORAL 11/11/19 09:00 02/09/20 08:59 11/12/19 08:29 Atorvastatin Calcium (Lipitor) 10 mg DAILY ORAL 11/11/19 09:00 02/09/20 08:59 11/12/19 08:30 Brimonidine Tartrate (Alphagan) 1 drop TID BOTH EYES 11/11/19 09:00 02/09/20 08:59 11/12/19 08:30 Dorzolamide/ Timolol (Cosopt) 1 drop TWICE A DAY BOTH EYES 11/11/19 09:00 12/11/19 08:59 11/12/19 08:30 Levofloxacin 100 ml @ 100 mls/hr Q24H IVPB 11/11/19 11:00 11/18/19 10:59 11/11/19 11:00 Metformin HCl (Glucophage) 500 mg TWICE A DAY ORAL 11/11/19 09:00 12/11/19 08:59 11/12/19 08:29 Nitroglycerin (Ntg) 0.4 mg Q5M PRN SL Prn Chest Pain 11/10/19 20:00 12/10/19 19:59 11/10/19 20:09 Phenazopyridine HCl (Pyridium) 200 mg BID ORAL 11/11/19 18:00 11/14/19 17:59 11/12/19 08:30 Assessment/Plan Assessment/Plan IMPRESSION: 1. Chest pain. 2. Pacemaker. 3. Elevated PSA. 4. COPD. 5. Diabetes mellitus. 6. Chronic pain. DISCUSSION: Continue anticoagulation for history of PE, DVT, and previous embolectomy. Oncology consultation is noted. I have ordered pulmonary hygiene and oxygen. Burke Tamayo M.D. Burke Tamayo MD November 12, 2019 10:45
[2019-11-12 11:57] VITALS: BP 105/60
--- NOTE | 2019-11-12 13:00 | Infectious Diseases Prog Note ---
Assessment/Plan Assessment/Plan IMPRESSION: Leukocytosis, improving. Dysuria, UTI. Recent urologic procedure. COPD. Diabetes mellitus, BPH, Hypertension, history of pulmonary emboli, Glaucoma. RECOMMENDATION: Continue with Levaquin & Pyridium We will follow up the cultures. Subjective ROS Limited/Unobtainable: No Respiratory: Reports: no symptoms Cardiovascular: Reports: chest pain Genitourinary: Reports: dysuria Allergies: Coded Allergies: HYDROMORPHONE (Verified Allergy, Unknown, 09/02/19) Uncoded Allergies: CONTRAST DYE (Allergy, Unknown, 03/15/19) IODINE CONTRAST (Allergy, Unknown, 09/26/19) Objective Vital Signs Last 24 Hour Vital Signs Date Time Temp Pulse Resp B/P (MAP) Pulse Ox O2 Delivery O2 Flow Rate FiO2 11/12/19 11:57 97.0 73 20 105/60 (75) 98 11/12/19 11:16 97.9 11/12/19 09:00 Room Air 11/12/19 08:00 97.9 77 18 119/63 (81) 99 11/12/19 08:00 76 11/12/19 04:00 69 117/64 (81) 11/12/19 04:00 68 11/12/19 00:00 73 11/11/19 23:59 97.7 77 102/75 (84) 97 11/11/19 21:48 97.5 67 109/53 (71) 11/11/19 21:00 Room Air 11/11/19 16:00 79 11/11/19 16:00 98.1 99 20 109/55 (73) 99 Height (Feet): 5 Height (Inches): 8.00 Weight (Pounds): 205 General Appearance: no acute distress HEENT: mucous membranes moist Respiratory/Chest: lungs clear Cardiovascular: normal rate Abdomen: soft, non tender Extremities: no edema Neurologic/Psychiatric: alert, oriented x 3, responsive Microbiology Date/Time Source Procedure Growth Status 11/10/19 20:30 Blood Blood Culture - Preliminary NO GROWTH AFTER 24 HOURS Resulted 11/10/19 20:15 Blood Blood Culture - Preliminary NO GROWTH AFTER 24 HOURS Resulted 11/10/19 19:45 Urine,Clean Catch Urine Culture - Preliminary Staphylococcus Sp Coag Neg Resulted Laboratory Tests Test 11/12/19 05:38 Troponin I 0.000 ng/mL (0.000-0.056) Current Medications Medications (Trade) Dose Ordered Sig/Kristan Route PRN Reason Start Time Stop Time Status Last Admin Dose Admin Acetaminophen (Tylenol) 650 mg Q4H PRN ORAL Mild Pain (Pain Scale 1-3) 11/11/19 00:15 12/11/19 00:14 11/12/19 10:46 Apixaban (Eliquis) 5 mg BID ORAL 11/11/19 09:00 02/09/20 08:59 11/12/19 08:29 Atorvastatin Calcium (Lipitor) 10 mg DAILY ORAL 11/11/19 09:00 02/09/20 08:59 11/12/19 08:30 Brimonidine Tartrate (Alphagan) 1 drop TID BOTH EYES 11/11/19 09:00 02/09/20 08:59 11/12/19 08:30 Dorzolamide/ Timolol (Cosopt) 1 drop TWICE A DAY BOTH EYES 11/11/19 09:00 12/11/19 08:59 11/12/19 08:30 Levofloxacin 100 ml @ 100 mls/hr Q24H IVPB 11/11/19 11:00 11/18/19 10:59 11/12/19 11:24 Metformin HCl (Glucophage) 500 mg TWICE A DAY ORAL 11/11/19 09:00 12/11/19 08:59 11/12/19 08:29 Nitroglycerin (Ntg) 0.4 mg Q5M PRN SL Prn Chest Pain 11/10/19 20:00 12/10/19 19:59 11/10/19 20:09 Phenazopyridine HCl (Pyridium) 200 mg BID ORAL 11/11/19 18:00 11/14/19 17:59 11/12/19 08:30 Urbano Butler MD November 12, 2019 13:00
--- NOTE | 2019-11-12 14:12 | Cardiac Electrophysiology PN ---
Assessment/Plan Assessment/Plan 1. Chest pain. The patient is already ruled out for myocardial infarction. The patient has multiple stress tests in the past that have been negative as well as multiple V/Q scans that have been negative. After the patient's white count normalized, we will try to reschedule a stress test if he agrees to do it. 2. Status post [employer] pacemaker with normal function by recent interrogation. 3. History of pulmonary embolism, status post embolectomy in the past. Continue Eliquis 5 mg b.i.d. 4. Diabetes, on metformin. 5. Glaucoma. 6[place] [address]. The patient was started on Levaquin. 7. Hyperlipidemia, on Lipitor. 8. Status post urology procedure in the office with high PSA. FU Dr Delonte GARCIA RN Subjective Subjective Alert in NAD. In SR. Ruled out for SC. Objective Last 24 Hour Vital Signs Date Time Temp Pulse Resp B/P (MAP) Pulse Ox O2 Delivery O2 Flow Rate FiO2 11/12/19 12:00 70 11/12/19 11:57 97.0 73 20 105/60 (75) 98 11/12/19 11:16 97.9 11/12/19 09:00 Room Air 11/12/19 08:00 97.9 77 18 119/63 (81) 99 11/12/19 08:00 76 11/12/19 04:00 69 117/64 (81) 11/12/19 04:00 68 11/12/19 00:00 73 11/11/19 23:59 97.7 77 102/75 (84) 97 11/11/19 21:48 97.5 67 109/53 (71) 11/11/19 21:00 Room Air 11/11/19 16:00 79 11/11/19 16:00 98.1 99 20 109/55 (73) 99 Intake and Output 11/11/19 11/12/19 19:00 07:00 Intake Total 480 ml Balance 480 ml Intake Oral 480 ml # Voids 3 2 Laboratory Tests Test 11/12/19 05:38 Troponin I 0.000 ng/mL (0.000-0.056) Microbiology Date/Time Source Procedure Growth Status 11/10/19 20:30 Blood Blood Culture - Preliminary NO GROWTH AFTER 24 HOURS Resulted 11/10/19 20:15 Blood Blood Culture - Preliminary NO GROWTH AFTER 24 HOURS Resulted 11/10/19 19:45 Urine,Clean Catch Urine Culture - Preliminary Staphylococcus Sp Coag Neg Resulted Objective HEAD AND NECK: Showed no JVD. LUNGS: Clear. CARDIOVASCULAR: Shows regular S1 and S2 with no gallop. ABDOMEN: Soft. EXTREMITIES: No pitting edema. SKIN: The pacemaker in left subclavian has healed. Gato Zayas MD November 12, 2019 14:12
[2019-11-12 16:03] VITALS: BP 124/45
--- NOTE | 2019-11-12 19:05 | NUR ---
HAND-OFF: Report given to Lisa.
--- NOTE | 2019-11-12 19:10 | NUR ---
NURSE NOTES: Received pt and report from KOREY Watkins. Observed pt resting in bed with both eyes closed; arousable to voice. Pt is A/Ox4. psychometrician is in placed; pt is NSR. IV site intact, asymptomatic, and patent. Bed is in the lowest position and locked. Call light and bedside table is within reach. No signs/symptoms of acute distress noted at this time. Will continue plan of care.
[2019-11-12] MEDS ORDERED: ATORVASTATIN CA10 MG ORAL (19:53)
[2019-11-12] MEDS ORDERED: NITROFURANTOIN1 GM MC (19:53)
[2019-11-12] MEDS ORDERED: NIZORAL 2% C1 APPLIC TOPIC (19:53)
[2019-11-12 20:00] VITALS: BP 102/62
--- NOTE | 2019-11-12 20:40 | General Progress Note ---
Assessment/Plan Problem List: (1) Pacemaker malfunction ICD Codes: T82.111A - Breakdown (mechanical) of cardiac pulse generator ( battery), initial encounter SNOMED: 205216879 (2) Palpitation ICD Codes: R00.2 - Palpitations SNOMED: 67047961 (3) Acute coronary syndrome ICD Codes: I20.0 - Acute coronary syndrome SNOMED: 911695206 (4) HTN (hypertension) ICD Codes: I10 - Essential (primary) hypertension SNOMED: 88220682 (5) Hx pulmonary embolism ICD Codes: Z86.711 - Hx pulmonary embolism SNOMED: 759066268 (6) Diabetes mellitus ICD Codes: E11.9 - Type 2 diabetes mellitus without complications SNOMED: 19000063 (7) Chest pain ICD Codes: R07.9 - Chest pain, unspecified SNOMED: 17314235 Status: progressing Assessment/Plan: htn chest pain r/p acs dm negative troponin persistent leukocytosis afebrile Subjective ROS Limited/Unobtainable: Yes Allergies: Coded Allergies: HYDROMORPHONE (Verified Allergy, Unknown, 09/02/19) Uncoded Allergies: CONTRAST DYE (Allergy, Unknown, 03/15/19) IODINE CONTRAST (Allergy, Unknown, 09/26/19) Objective Last 24 Hour Vital Signs Date Time Temp Pulse Resp B/P (MAP) Pulse Ox O2 Delivery O2 Flow Rate FiO2 11/12/19 16:45 75 11/12/19 16:03 97.2 85 18 124/45 (71) 97 11/12/19 12:00 70 11/12/19 11:57 97.0 73 20 105/60 (75) 98 11/12/19 11:16 97.9 11/12/19 09:00 Room Air 11/12/19 08:00 97.9 77 18 119/63 (81) 99 11/12/19 08:00 76 11/12/19 04:00 69 117/64 (81) 11/12/19 04:00 68 11/12/19 00:00 73 11/11/19 23:59 97.7 77 102/75 (84) 97 11/11/19 21:48 97.5 67 109/53 (71) 11/11/19 21:00 Room Air Intake and Output 11/11/19 11/12/19 19:00 07:00 Intake Total 480 ml Balance 480 ml Intake Oral 480 ml # Voids 3 2 Laboratory Tests 11/12/19 05:38: Troponin I 0.000 Height (Feet): 5 Height (Inches): 8.00 Weight (Pounds): 205 Carmen Maria MD November 12, 2019 20:40
[2019-11-13] VITALS: BP 104/69
--- NOTE | 2019-11-13 01:15 | NUR ---
NURSE NOTES: Administered Tylenol 650mg PO Q4H PRN for generalized pain of 3/10. Paper charting was used because [employer] system was down. Monitored pt and reassessed pain; 0/10.
[2019-11-13 04:00] VITALS: BP 108/80
[2019-11-13 07:30] LABS: BASOPHILS % (AUTO) 0.7 % (0.0-2.0); EOSINOPHILS % (AUTO) 3.6 % (0.0-3.0); HEMATOCRIT 34.5 % (42.0-52.0); HEMOGLOBIN 11.3 G/DL (14.2-18.0); LYMPHOCYTES % (AUTO) 16.4 % (20.0-45.0); MEAN CORPUSCULAR VOLUME 79 FL (80-99); MONOCYTES % (AUTO) 10.8 % (1.0-10.0); NEUTROPHILS % (AUTO) 68.5 % (45.0-75.0); PLATELET COUNT 156 K/UL (150-450); RED BLOOD COUNT 4.35 M/UL (4.70-6.10); RED CELL DISTRIBUTION WIDTH 14.3 % (11.6-14.8); WHITE BLOOD COUNT 7.7 K/UL (4.8-10.8)
--- NOTE | 2019-11-13 07:33 | NUR ---
HAND-OFF: Report given to KOREY Cameron. Plan of care endorsed.
--- NOTE | 2019-11-13 08:43 | NUR ---
NURSE NOTES: Pt in bed in low position, call light next to patient, eating breakfast, refused vitals this morning, might be discharged today, but has history of appealing that decision, Ox4 calm and cooperative, states he is not homeless, no s/s of distress, pain or sob.
--- NOTE | 2019-11-13 08:59 | NUR ---
CASE MANAGEMENT:REVIEW 11/13/19 SI: ACS. UTI. BPH 96.8 63 19 108/80 96% ON RA H/H-11.3/34.5 IS: PYRIDIUM PO BID IV LEVAQUIN Q24 ELIQUIS PO BID LIPITOR PO QHS METFORMIN PO BID : TELEMETRY UNIT DCP: HOME AND F/U WITH UROLOGIST OUTPATIENT
[2019-11-13] MEDS: metFORMIN 500mg tab ORAL SCH (09:47)
[2019-11-13] MEDS: Phenazopyridine 200mg tab ORAL SCH (09:47)
[2019-11-13] MEDS: Brimonidine 0.2% Opth Sol BOTH EYES SCH ×2 (09:48→13:28)
[2019-11-13] MEDS: Cosopt Opth Soln 10 mL Btl BOTH EYES SCH (09:48)
[2019-11-13] MEDS: Eliquis 5mg tablet ORAL SCH (09:48)
--- NOTE | 2019-11-13 11:37 | Infectious Diseases Prog Note ---
Assessment/Plan Assessment/Plan IMPRESSION: Leukocytosis resolved Dysuria, UTI. Recent urologic procedure. COPD. Diabetes mellitus, BPH, Hypertension, history of pulmonary emboli, Glaucoma. RECOMMENDATION: Continue with Levaquin & Pyridium Subjective ROS Limited/Unobtainable: No Constitutional: Reports: no symptoms, other Respiratory: Reports: no symptoms Cardiovascular: Reports: chest pain, other - decreased Gastrointestinal/Abdominal: Reports: no symptoms Genitourinary: Reports: dysuria Allergies: Coded Allergies: HYDROMORPHONE (Verified Allergy, Unknown, 09/02/19) Uncoded Allergies: CONTRAST DYE (Allergy, Unknown, 03/15/19) IODINE CONTRAST (Allergy, Unknown, 09/26/19) Objective Vital Signs Last 24 Hour Vital Signs Date Time Temp Pulse Resp B/P (MAP) Pulse Ox O2 Delivery O2 Flow Rate FiO2 11/13/19 07:49 Room Air 11/13/19 07:44 71 11/13/19 04:00 96.8 63 19 108/80 (89) 96 11/13/19 04:00 64 11/13/19 00:00 73 11/13/19 00:00 97.8 73 19 104/69 (81) 99 11/12/19 21:00 Room Air 11/12/19 20:00 97.9 73 20 102/62 (75) 97 11/12/19 20:00 84 11/12/19 16:45 75 11/12/19 16:03 97.2 85 18 124/45 (71) 97 11/12/19 12:00 70 11/12/19 11:57 97.0 73 20 105/60 (75) 98 Height (Feet): 5 Height (Inches): 8.00 Weight (Pounds): 205 General Appearance: no acute distress HEENT: mucous membranes moist Respiratory/Chest: lungs clear Cardiovascular: normal rate Abdomen: soft, non tender Extremities: no edema Neurologic/Psychiatric: alert, oriented x 3, responsive Microbiology Date/Time Source Procedure Growth Status 11/10/19 20:30 Blood Blood Culture - Preliminary NO GROWTH AFTER 48 HOURS Resulted 11/10/19 20:15 Blood Blood Culture - Preliminary NO GROWTH AFTER 48 HOURS Resulted 11/10/19 19:45 Urine,Clean Catch Urine Culture - Final Staphylococcus Sp Coag Neg Complete Laboratory Tests Test 11/13/19 05:37 White Blood Count 7.7 K/UL (4.8-10.8) Red Blood Count 4.35 M/UL (4.70-6.10) L Hemoglobin 11.3 G/DL (14.2-18.0) L Hematocrit 34.5 % (42.0-52.0) L Mean Corpuscular Volume 79 FL (80-99) L Mean Corpuscular Hemoglobin 26.0 PG (27.0-31.0) L Mean Corpuscular Hemoglobin Concent 32.7 G/DL (32.0-36.0) Red Cell Distribution Width 14.3 % (11.6-14.8) Platelet Count 156 K/UL (150-450) Mean Platelet Volume 9.3 FL (6.5-10.1) Neutrophils (%) (Auto) 68.5 % (45.0-75.0) Lymphocytes (%) (Auto) 16.4 % (20.0-45.0) L Monocytes (%) (Auto) 10.8 % (1.0-10.0) H Eosinophils (%) (Auto) 3.6 % (0.0-3.0) H Basophils (%) (Auto) 0.7 % (0.0-2.0) Current Medications Medications (Trade) Dose Ordered Sig/Kristan Route PRN Reason Start Time Stop Time Status Last Admin Dose Admin Acetaminophen (Tylenol) 650 mg Q4H PRN ORAL Mild Pain (Pain Scale 1-3) 11/11/19 00:15 12/11/19 00:14 11/12/19 18:59 Apixaban (Eliquis) 5 mg BID ORAL 11/11/19 09:00 02/09/20 08:59 11/13/19 09:48 Atorvastatin Calcium (Lipitor) 10 mg DAILY ORAL 11/11/19 09:00 02/09/20 08:59 11/13/19 09:47 Brimonidine Tartrate (Alphagan) 1 drop TID BOTH EYES 11/11/19 09:00 02/09/20 08:59 11/13/19 09:48 Dorzolamide/ Timolol (Cosopt) 1 drop TWICE A DAY BOTH EYES 11/11/19 09:00 12/11/19 08:59 11/13/19 09:48 Levofloxacin 100 ml @ 100 mls/hr Q24H IVPB 5/26/20 11:00 11/18/19 10:59 11/13/19 11:07 Metformin HCl (Glucophage) 500 mg TWICE A DAY ORAL 11/11/19 09:00 12/11/19 08:59 11/13/19 09:47 Nitroglycerin (Ntg) 0.4 mg Q5M PRN SL Prn Chest Pain 11/10/19 20:00 12/10/19 19:59 11/10/19 20:09 Phenazopyridine HCl (Pyridium) 200 mg BID ORAL 11/11/19 18:00 11/14/19 17:59 11/13/19 09:47 Urbano Butler MD November 13, 2019 11:37
[2019-11-13 12:00] VITALS: BP 117/70
--- NOTE | 2019-11-13 12:39 | Pulmonology Progress Note ---
Subjective ROS Limited/Unobtainable: No Interval Events: None new Constitutional: Reports: no symptoms, other HEENT: Repors: no symptoms Respiratory: Reports: no symptoms Cardiovascular: Reports: no symptoms Gastrointestinal/Abdominal: Reports: no symptoms Allergies: Coded Allergies: HYDROMORPHONE (Verified Allergy, Unknown, 09/02/19) Uncoded Allergies: CONTRAST DYE (Allergy, Unknown, 03/15/19) IODINE CONTRAST (Allergy, Unknown, 09/26/19) Objective Last 24 Hour Vital Signs Date Time Temp Pulse Resp B/P (MAP) Pulse Ox O2 Delivery O2 Flow Rate FiO2 11/13/19 07:49 Room Air 11/13/19 07:44 71 11/13/19 04:00 96.8 63 19 108/80 (89) 96 11/13/19 04:00 64 11/13/19 00:00 73 11/13/19 00:00 97.8 73 19 104/69 (81) 99 11/12/19 21:00 Room Air 11/12/19 20:00 97.9 73 20 102/62 (75) 97 11/12/19 20:00 84 11/12/19 16:45 75 11/12/19 16:03 97.2 85 18 124/45 (71) 97 Intake and Output 11/12/19 11/13/19 19:00 07:00 Intake Total 580 ml 360 ml Output Total 450 ml Balance 130 ml 360 ml Intake Oral 480 ml IV Total 100 ml Other 360 ml Output Urine Total 450 ml # Voids 1 2 General Appearance: no acute distress HEENT: normocephalic Respiratory: chest wall non-tender, lungs clear Cardiovascular: normal peripheral pulses, normal rate Abdomen: normal bowel sounds Microbiology Date/Time Source Procedure Growth Status 11/10/19 20:30 Blood Blood Culture - Preliminary NO GROWTH AFTER 48 HOURS Resulted 11/10/19 20:15 Blood Blood Culture - Preliminary NO GROWTH AFTER 48 HOURS Resulted 11/10/19 19:45 Urine,Clean Catch Urine Culture - Final Staphylococcus Sp Coag Neg Complete Laboratory Tests 11/13/19 05:37: White Blood Count 7.7, Red Blood Count 4.35L, Hemoglobin 11.3L, Hematocrit 34.5L , Mean Corpuscular Volume 79L, Mean Corpuscular Hemoglobin 26.0L, Mean Corpuscular Hemoglobin Concent 32.7, Red Cell Distribution Width 14.3, Platelet Count 156, Mean Platelet Volume 9.3, Neutrophils (%) (Auto) 68.5, Lymphocytes (% ) (Auto) 16.4L, Monocytes (%) (Auto) 10.8H, Eosinophils (%) (Auto) 3.6H, Basophils (%) (Auto) 0.7 Current Medications Medications (Trade) Dose Ordered Sig/Kristan Route PRN Reason Start Time Stop Time Status Last Admin Dose Admin Acetaminophen (Tylenol) 650 mg Q4H PRN ORAL Mild Pain (Pain Scale 1-3) 11/11/19 00:15 12/11/19 00:14 11/12/19 18:59 Apixaban (Eliquis) 5 mg BID ORAL 11/11/19 09:00 02/09/20 08:59 11/13/19 09:48 Atorvastatin Calcium (Lipitor) 10 mg DAILY ORAL 11/11/19 09:00 02/09/20 08:59 11/13/19 09:47 Brimonidine Tartrate (Alphagan) 1 drop TID BOTH EYES 11/11/19 09:00 02/09/20 08:59 11/13/19 09:48 Dorzolamide/ Timolol (Cosopt) 1 drop TWICE A DAY BOTH EYES 11/11/19 09:00 12/11/19 08:59 11/13/19 09:48 Levofloxacin 100 ml @ 100 mls/hr Q24H IVPB 11/11/19 11:00 11/18/19 10:59 11/13/19 11:07 Metformin HCl (Glucophage) 500 mg TWICE A DAY ORAL 11/11/19 09:00 12/11/19 08:59 11/13/19 09:47 Nitroglycerin (Ntg) 0.4 mg Q5M PRN SL Prn Chest Pain 11/10/19 20:00 12/10/19 19:59 11/10/19 20:09 Phenazopyridine HCl (Pyridium) 200 mg BID ORAL 11/11/19 18:00 11/14/19 17:59 11/13/19 09:47 Assessment/Plan Assessment/Plan IMPRESSION: 1. Chest pain. 2. Pacemaker. 3. Elevated PSA. 4. COPD. 5. Diabetes mellitus. 6. Chronic pain. DISCUSSION: Continue anticoagulation for history of PE, DVT, and previous embolectomy. Oncology consultation is noted. I have ordered pulmonary hygiene and oxygen. Burke Tamayo M.D. Burke Tamayo MD November 13, 2019 12:39
--- NOTE | 2019-11-13 15:14 | Cardiac Electrophysiology PN ---
Assessment/Plan Assessment/Plan 1. Chest pain. Already ruled out for myocardial infarction. Multiple stress tests in the past have been negative as well as multiple V/Q scans that have been negative. Will schedule for stress test as out patient if he agrees 2. Status post [employer] pacemaker with normal function 3. History of pulmonary embolism, status post embolectomy in the past. Continue Eliquis 5 mg b.i.d. 4. Diabetes, on metformin. 5. Glaucoma. 6[place] [address]. The patient was started on Levaquin.Now normal WBC 7. Hyperlipidemia, on Lipitor. 8. Status post urology procedure in the office with high PSA. FU Dr Delonte GRAHAM RN Subjective Subjective Alert in NAD. In SR. WBC now normalized. Objective Last 24 Hour Vital Signs Date Time Temp Pulse Resp B/P (MAP) Pulse Ox O2 Delivery O2 Flow Rate FiO2 11/13/19 12:00 97.2 68 18 117/70 (86) 96 11/13/19 11:28 66 11/13/19 07:49 Room Air 11/13/19 07:44 71 11/13/19 04:00 96.8 63 19 108/80 (89) 96 11/13/19 04:00 64 11/13/19 00:00 73 11/13/19 00:00 97.8 73 19 104/69 (81) 99 11/12/19 21:00 Room Air 11/12/19 20:00 97.9 73 20 102/62 (75) 97 11/12/19 20:00 84 11/12/19 16:45 75 11/12/19 16:03 97.2 85 18 124/45 (71) 97 Intake and Output 11/12/19 11/13/19 19:00 07:00 Intake Total 580 ml 360 ml Output Total 450 ml Balance 130 ml 360 ml Intake Oral 480 ml IV Total 100 ml Other 360 ml Output Urine Total 450 ml # Voids 1 2 Laboratory Tests Test 11/13/19 05:37 White Blood Count 7.7 K/UL (4.8-10.8) Red Blood Count 4.35 M/UL (4.70-6.10) L Hemoglobin 11.3 G/DL (14.2-18.0) L Hematocrit 34.5 % (42.0-52.0) L Mean Corpuscular Volume 79 FL (80-99) L Mean Corpuscular Hemoglobin 26.0 PG (27.0-31.0) L Mean Corpuscular Hemoglobin Concent 32.7 G/DL (32.0-36.0) Red Cell Distribution Width 14.3 % (11.6-14.8) Platelet Count 156 K/UL (150-450) Mean Platelet Volume 9.3 FL (6.5-10.1) Neutrophils (%) (Auto) 68.5 % (45.0-75.0) Lymphocytes (%) (Auto) 16.4 % (20.0-45.0) L Monocytes (%) (Auto) 10.8 % (1.0-10.0) H Eosinophils (%) (Auto) 3.6 % (0.0-3.0) H Basophils (%) (Auto) 0.7 % (0.0-2.0) Microbiology Date/Time Source Procedure Growth Status 11/10/19 20:30 Blood Blood Culture - Preliminary NO GROWTH AFTER 48 HOURS Resulted 11/10/19 20:15 Blood Blood Culture - Preliminary NO GROWTH AFTER 48 HOURS Resulted 11/10/19 19:45 Urine,Clean Catch Urine Culture - Final Staphylococcus Sp Coag Neg Complete Objective HEAD AND NECK: Showed no JVD. LUNGS: Clear. CARDIOVASCULAR: Shows regular S1 and S2 with no gallop. ABDOMEN: Soft. EXTREMITIES: No pitting edema. SKIN: The pacemaker in left subclavian has healed. Gato Zayas MD November 13, 2019 15:14
--- NOTE | 2019-11-13 16:04 | NUR ---
TORRI RECEIVED MESSAGE FROM [facility]CH WITH [facility] SHE WAS INQUIRING ABOUT PATIENT'S REQUEST TO CHANGE CONSUMER RELATIONS SPECIALIST MATTER WAS DISCUSSED WITH REGISTERED NURSE RENAL YESTERDAY, SHE IN TURN UPDATED PATIENT ABOUT CONSUMER RELATIONS SPECIALIST LEFT VMM FOR DUTCH STATING THAT PATIENT NOW HAS A DISCHARGE ORDER AND HE CAN F/U WITH HIS PRIMARY CONSUMER RELATIONS SPECIALIST AND ALSO HIS UROLOGIST PATIENT CANNOT APPEAL HIS DISCHARGE BECAUSE HE HAS EXHAUSTED HIS MCR PART A TORRI JUDD T: [phone] REF# [id number]
--- NOTE | 2019-11-13 16:06 | NUR ---
ARCHITECTURE DRAFTER NOTES PLACED A CALL TO DR. ZULMA ELLSWORTH OFFICE, PT HAS AN APPOINTMENT FOR November. REMINDED PT OF APPOINTMENT DATE AND ENCOURAGED PT TO KEEP ALL OUTPATIENT APPOINTMENTS. PT VERBALIZED UNDERSTANDING. OK TO DC PATIENT. Addendum: 11/13/19 at 1638 by PRISCILLA GONZALEZ RN RN RECEIVED A CALL FROM HAI FROM [facility] REQUESTING DOCUMENTATION STATING MEDICARE DAYS ARE EXHAUSTED, DOCUMENT FAXED TO [phone]. CASE WILL BE CLOSED. [id number]
--- NOTE | 2019-11-13 16:07 | General Progress Note ---
Assessment/Plan Problem List: (1) Palpitation ICD Codes: R00.2 - Palpitations SNOMED: 78726001 (2) Urinary tract infection ICD Codes: N39.0 - Urinary tract infection, site not specified SNOMED: 14028497 (3) Diabetes mellitus ICD Codes: E11.9 - Type 2 diabetes mellitus without complications SNOMED: 70695070 (4) Hx pulmonary embolism ICD Codes: Z86.711 - Hx pulmonary embolism SNOMED: 014465236 (5) HTN (hypertension) ICD Codes: I10 - Essential (primary) hypertension SNOMED: 21257303 (6) Acute coronary syndrome ICD Codes: I20.0 - Acute coronary syndrome SNOMED: 811450326 (7) Chest pain ICD Codes: R07.9 - Chest pain, unspecified SNOMED: 30552901 Assessment/Plan: chest pain atypical cleared by id and cardiology will dc and f/u w assembly person as outpatient neg trop wbc is normal uti cleared by id Subjective ROS Limited/Unobtainable: Yes Allergies: Coded Allergies: HYDROMORPHONE (Verified Allergy, Unknown, 09/02/19) Uncoded Allergies: CONTRAST DYE (Allergy, Unknown, 03/15/19) IODINE CONTRAST (Allergy, Unknown, 09/26/19) Objective Last 24 Hour Vital Signs Date Time Temp Pulse Resp B/P (MAP) Pulse Ox O2 Delivery O2 Flow Rate FiO2 11/13/19 12:00 97.2 68 18 117/70 (86) 96 11/13/19 11:28 66 11/13/19 07:49 Room Air 11/13/19 07:44 71 11/13/19 04:00 96.8 63 19 108/80 (89) 96 11/13/19 04:00 64 11/13/19 00:00 73 11/13/19 00:00 97.8 73 19 104/69 (81) 99 11/12/19 21:00 Room Air 11/12/19 20:00 97.9 73 20 102/62 (75) 97 11/12/19 20:00 84 11/12/19 16:45 75 Intake and Output 11/12/19 11/13/19 19:00 07:00 Intake Total 580 ml 360 ml Output Total 450 ml Balance 130 ml 360 ml Intake Oral 480 ml IV Total 100 ml Other 360 ml Output Urine Total 450 ml # Voids 1 2 Laboratory Tests 11/13/19 05:37: White Blood Count 7.7, Red Blood Count 4.35L, Hemoglobin 11.3L, Hematocrit 34.5L , Mean Corpuscular Volume 79L, Mean Corpuscular Hemoglobin 26.0L, Mean Corpuscular Hemoglobin Concent 32.7, Red Cell Distribution Width 14.3, Platelet Count 156, Mean Platelet Volume 9.3, Neutrophils (%) (Auto) 68.5, Lymphocytes (% ) (Auto) 16.4L, Monocytes (%) (Auto) 10.8H, Eosinophils (%) (Auto) 3.6H, Basophils (%) (Auto) 0.7 Carmen Maria MD November 13, 2019 16:07
--- NOTE | 2019-11-13 16:44 | NUR ---
*-* INSURANCE *-* ALL CLINICALS AND REVIEWS HAVE BEEN FAXED TO: [facility] AUTH# [id number] FAX ALL CLINICALS TO [phone]
--- NOTE | 2019-11-13 16:56 | NUR ---
NURSE NOTES: Pt has been cleared by all following Mds of care, pt recieved dc order, pt made aware, pt attempted to appeal to medicare but the pt no longer has medicare. Medicare closed his case. Pt given aftercare plan and med recon for follow up care with Md Machuca his urologist. Pt lockstitch waistline joiner taken off, IV removed, pt was dressed and ready to go. Pt refused for nurse to walk him down. pt walked out by himself
--- NOTE | 2019-11-14 13:32 | NUR ---
*-* INSURANCE *-* UPDATED CLINICALS AND DISCHARGE INSTRUCTIONS HAVE BEEN FAXED NO DISCHARGE SUMMARY IN THE SYSTEM UNABLE TO SEND TO INS CO. *-* [employer] AUTH# [id number] FAX ALL CLINICALS TO [phone]
--- NOTE | 2019-11-17 07:28 | Discharge Summary ---
Discharge Summary Discharge Summary _ DATE OF ADMISSION: 11/10/2019 DATE OF DISCHARGE: 11/13/2019 DISCHARGED BY: Dr. Maria REASON FOR ADMISSION: 64 years old male with past medical history of coronary artery disease, ventricular mural thrombosis, hypertension, pacemaker, BPH, diabetes mellitus, PE/DVT on chronic anticoagulation with Eliquis, COPD, presented for evaluation due to chest pain. Patient had multiply prior admissions for chest pain , and had extensive workup prior. Patient reported chest pressure over the sternum , radiating to the left chest and left side of the neck. Patient also reported headache. He also reported associated shortness of breath with exertional dyspnea. Pain was worsened with exertion. He was concerned that something may be wrong with his pacemaker , although it had been checked multiply times and no problems have ever been found. Pain was rated as 8 out of 10. He denied fever and chills. He denied cough. He denied nausea and vomiting. He denied lower extremity swelling. He also reported dysuria for 1 day. He saw urologist 3 days prior for the procedure and had some instrumentation, but did not know the name of the exact procedure. He started on oral antibiotic. He took 1 pill , but could not recall the name of the pill. He denied flank pain or hematuria . Upon evaluation vital signs revealed low tachycardia with heart rate in 112. Pulse oximetry was stable on room air. Laboratory work-up revealed leukocytosis WBC 21.5, hemoglobin 12.9 ,hematocrit 39.1, platelet count 152. INR 1.1. Urinalysis revealed +3 protein , cloudy brown color urine , +2 leukocyte esterase, pyuria and few bacteria. Stable electrolytes. BUN 17, creatinine 1.5. Glucose 161. Stable LFT. Troponin negative. pro BNP 128. EKG revealed sinus tachycardia, no acute ischemic changes. Lactic acid 1.6. PSA 23. Chest x-ray revealed no active cardiopulmonary disease. Patient received aspirin , nitroglycerin , empiric antibiotic for UTI and admitted for further management. CONSULTANTS: back closer Dr. Ross pulmonary Dr. Tamayo ID specialist Dr. fahad Butler mechanical estimator/oncologist Dr. Gordon urologist Dr. Pyle [facility] COURSE: Patient admitted to telemetry floor. Echocardiogram revealed preserved ejection fraction of 60%. No evidence of left ventricular hypertrophy. No evidence of wall motion abnormality. Right ventricular systolic pressure of 41 , consistent with moderate pulmonary hypertension. Serial troponin were negative. EKG revealed no acute ischemic changes. Patient was ruled out for acute myocardial infarction. Patient had multiple stress tests in the past, which were negative as well as multiply VQ scan that have been negative. Sales Agent Insurance recommended another stress test as outpatient if patient agrees. Pacemaker was recently interrogated and showed normal functioning. Anticoagulation with Eliquis continued. Patient started on antibiotics as per ID specialist recommendation . Urine culture revealed Staph coag negative. Blood cultures were negative. Leukocytosis resolved. Urologist seen and evaluated patient . Patient had a longstanding history of BPH . he was maintained on Flomax and Proscar. He had cystoscopy for evaluation , and afterwards developed dysuria and symptoms of urinary tract infection. He failed to improve on oral antibiotic and presented with leukocytosis. Urologist recommended complete antibiotics for 7 to 10 days as outpatient , continue Pyridium as needed for discomfort . Patient to follow-up with the urologist after completion of antibiotics. Supplemental oxygen was on board as needed to keep pulse oximetry above 92%. Pulse oximetry remained stable on room air. Hemoglobin and hematocrit remained stable. Blood sugar was managed with metformin. Pain management was addressed as needed. Supportive care provided. Patient clinically stabilized and was ready for discharge. FINAL DIAGNOSES: Atypical chest pain ( ruled out for acute [place]) Hx of CAD, s/p [place] Leukocytosis -resolved Dysuria, UTI Status post recent cystoscopy BPH Elevated PSA Status post [facility] pacemaker with normal functioning History of pulmonary embolism , status post embolectomy in the past Hyperlipidemia COPD Diabetes mellitus Chronic pain DISCHARGE MEDICATIONS: See Medication Reconciliation list. DISCHARGE INSTRUCTIONS: Patient was discharged home. Follow-up with primary care provider in 1 week. Patient to follow-up with a urologist after completion of antibiotics. I have been assigned to dictate discharge summary for this account. I was not involved in the patient's management. Angelica Prakash NP Nov 17, 2019 07:28
--- NOTE | 2019-11-17 14:32 | NUR ---
*-* INSURANCE *-* DISCHARGE SUMMARY HAS BEEN FAXED TO: [employer]ENKINS# [id number] FAX ALL CLINICALS TO [phone]
--- NOTE | 2019-11-17 21:04 | Coder Physician Query ---
Clarification is required for compliance, coding accuracy, and to reflect severity of illness for this patient Dear Dr. Maria Date: 11/17/19 Sheet Metal Former/CDS' Name: RYLEE NOVAK REASON FOR ADMISSION: 64 years old male with past medical history of coronary artery disease, ventricular mural thrombosis, hypertension, pacemaker, BPH, diabetes mellitus, PE/DVT on chronic anticoagulation with Eliquis, COPD, presented for evaluation due to chest pain. Patient had multiply prior admissions for chest pain , and had extensive workup prior. Patient reported chest pressure over the sternum , radiating to the left chest and left side of the neck. Upon evaluation vital signs revealed low tachycardia with heart rate in 112. Pulse oximetry was stable on room air. Laboratory work-up revealed leukocytosis WBC 21.5, hemoglobin 12.9 ,hematocrit 39.1, platelet count 152. INR 1.1. Troponin negative. pro BNP 128. EKG revealed sinus tachycardia, no acute ischemic changes. Chest x-ray revealed no active cardiopulmonary disease. Patient received aspirin , nitroglycerin , empiric antibiotic for UTI FINAL DIAGNOSES: Atypical chest pain ( ruled out for acute [place]) Hx of CAD, s/p [place], Leukocytosis -resolved Please document the suspected etiology of Chest Pain: [] Acute Coronary Syndrome [] Pericarditis [] Anxiety [] Cancer [] Pneumonia [] Costochondritis [] Pneumothorax [] GERD/Esophagitis [] Pulmonary embolism [] Other: [] Unable to determine Physician signature Date Please also document in your Progress Notes and/or Discharge Summary and indicate if the condition was present on admission. MINE
--- NOTE | 2019-11-19 10:25 | Coder Physician Query ---
Dear Dr. Maria Date: 11/19/19 Shoe Designer/CDS' Name: RYLEE NOVAK REASON FOR ADMISSION: 64 years old male with past medical history of coronary artery disease, ventricular mural thrombosis, hypertension, pacemaker, BPH, diabetes mellitus, PE/DVT on chronic anticoagulation with Eliquis, COPD, presented for evaluation due to chest pain. Patient had multiply prior admissions for chest pain , and had extensive workup prior. Patient reported chest pressure over the sternum , radiating to the left chest and left side of the neck. Upon evaluation vital signs revealed low tachycardia with heart rate in 112. Pulse oximetry was stable on room air. Laboratory work-up revealed leukocytosis WBC 21.5, hemoglobin 12.9 ,hematocrit 39.1, platelet count 152. INR 1.1. Troponin negative. pro BNP 128. EKG revealed sinus tachycardia, no acute ischemic changes. Chest x-ray revealed no active cardiopulmonary disease. Patient received aspirin , nitroglycerin , empiric antibiotic for UTI FINAL DIAGNOSES: Atypical chest pain ( ruled out for acute [place]) Hx of CAD, s/p [place], Leukocytosis -resolved Please document the suspected etiology of Chest Pain: [] Acute Coronary Syndrome [] Pericarditis [] Anxiety [] Cancer [] Pneumonia [] Costochondritis [] Pneumothorax [] GERD/Esophagitis [] Pulmonary embolism [] Other: [] Unable to determine Physician signature Date MTDD
== END 2019-11-13 16:59 | disposition home or self-care (01) | DRG 198 ==
LOC: EMR 19:45 → 2E 20:38 → EDBEDREQ 22:33
DX: R07.89 Other chest pain (principal); J44.9 Chronic obstructive pulmonary disease, unspecified; E11.9 Type 2 diabetes mellitus without complications; N40.0 Benign prostatic hyperplasia without lower urinary tract symptoms; I10 Essential (primary) hypertension; Z86.711 Personal history of pulmonary embolism; Z91.041 Radiographic dye allergy status; Z88.6 Allergy status to analgesic agent; Z79.84 Long term (current) use of oral hypoglycemic drugs; Z79.01 Long term (current) use of anticoagulants; N39.0 Urinary tract infection, site not specified; I25.10 Atherosclerotic heart disease of native coronary artery without angina pectoris; Z86.718 Personal history of other venous thrombosis and embolism; Z95.810 Presence of automatic (implantable) cardiac defibrillator; E78.5 Hyperlipidemia, unspecified; H40.9 Unspecified glaucoma; N40.1 Benign prostatic hyperplasia with lower urinary tract symptoms; N13.8 Other obstructive and reflux uropathy; I25.2 Old myocardial infarction; R00.2 Palpitations
CPT/HCPCS: 36415; 71045; 80053; 81003; 83605; 83880; 84153; 84484; 85007; 85025; 85610; 85730; 87040; 87086; 93005; 93306; 96365; 96375; 99285

== ENCOUNTER 2019-11-29 06:33 | Emergency (ER) | payer MEDICARE, MEDICAID ==
[~2019-11-29] VITALS: Ht 172.7 cm; Wt 93.0 kg
[~2019-11-29 06:33] MED LIST changes: +NITROFURANTOIN1 GM MC; +NIZORAL 2% C1 APPLIC TOPIC
--- NOTE | 2019-11-29 06:58 | Emergency Room Report ---
History of Present Illness General Chief Complaint: Chest Pain Source: Patient Present Illness HPI This patient is well-known to [facility]. The patient has a history of a large PE in 2012. He also has a pacemaker. He has chronic chest pain. He has been admitted multiple times here to [facility] for chest pain. Most recently within the last month. He underwent echocardiogram, serial troponins, extensive testing and evaluation by cardiology. The patient presents today because around 2 AM he states he was having a conversation with someone and he developed chest pain. He states that when he woke up 3 hours later he still had the chest pain. He describes the pain as in his left chest radiating to his left neck. He denies nausea or vomiting. He denies sweating. He denies weakness. He denies tingling or numbness. He denies cough or congestion. He denies shortness of breath. He denies abdominal pain. He has no other complaints. Allergies: Coded Allergies: HYDROMORPHONE (Verified Allergy, Unknown, 09/02/19) Uncoded Allergies: CONTRAST DYE (Allergy, Unknown, 03/15/19) IODINE CONTRAST (Allergy, Unknown, 09/26/19) COVID-19 Screening Contact w/high risk pt: No Recent Travel to affected area: No Experienced COVID-19 symptoms?: No COVID-19 symptoms experienced: Shortness of Breath COVID-19 Testing performed WALL WASHER: No Patient History Past Medical History: see triage record, DM, HTN, [place], CAD, other - HLP Social History: Denies: smoking, alcohol use, drug use Reviewed Nursing Documentation: PMH: Agreed; PSxH: Agreed Nursing Documentation-PMH Hx Cardiac Problems: Yes - [place]/2017, glaucoma surgery Hx Hypertension: Yes Hx Pacemaker: Yes Hx Asthma: No Hx COPD: Yes Hx Diabetes: Yes - DM II Hx Cancer: No Hx Gastrointestinal Problems: No Hx Dialysis: No Hx Neurological Problems: No Hx Cerebrovascular Accident: No Hx Seizures: No Hx Headaches: Yes Review of Systems All Other Systems: negative except mentioned in HPI Physical Exam Vital Signs Date Time Temp Pulse Resp B/P (MAP) Pulse Ox O2 Delivery O2 Flow Rate FiO2 11/29/19 06:37 98.4 71 16 145/80 (101) 96 Room Air Sp02 EP Interpretation: reviewed, normal General Appearance: no apparent distress, alert, GCS 15, non-toxic Head: normocephalic, atraumatic Eyes: bilateral eye normal inspection, bilateral eye PERRL ENT: hearing grossly normal, normal pharynx, no angioedema, normal voice Neck: full range of motion, supple/symm/no masses Respiratory: chest non-tender, lungs clear, normal breath sounds, no respiratory distress, no retraction, no accessory muscle use, speaking full sentences Cardiovascular #1: regular rate, rhythm, no edema Gastrointestinal: normal bowel sounds, non tender, soft, non-distended, no guarding, no rebound Rectal: deferred Musculoskeletal: back normal, normal range of motion, gait/station normal, non- tender Neurologic: alert, motor strength/tone normal, oriented x3, sensory intact, responsive, speech normal Psychiatric: judgement/insight normal, memory normal, mood/affect normal, no suicidal/homicidal ideation Skin: no rash, normal color Medical Decision Making Diagnostic Impression: Primary Impression: Chest pain ER Course This patient is seen regularly here for chest pain. He does have a significant past medical history with a PE in 2012. He does have an IVC filter. He also has COPD and coronary artery disease. He has a pacemaker. He is of high cardiac risk. However, he has had a very thorough cardiac work-up within the last few weeks. My work-up here today is very reassuring with a normal and un- changed EKG, a negative troponin greater than 6 hours out from the onset of his symptoms, a recent normal echocardiogram and normal chest x-ray. Given this recent very thorough work-up in my evaluation today, I do not feel that a repeat admission to the hospital would be of any benefit to this patient. The patient was instructed to follow-up within the next 48 hours with his own nematologist. He was also given very close return precautions. I feel that given the patient's work-up and recent evaluations that at this time the patient is safe for discharge home. Overall, this patient's evaluation is very reassuring. Laboratory Tests Test 11/29/19 06:46 11/29/19 07:30 11/29/19 08:00 Urine Opiates Screen Negative (NEGATIVE) Urine Barbiturates Screen Negative (NEGATIVE) Phencyclidine (PCP) Screen Negative (NEGATIVE) Urine Amphetamines Screen Negative (NEGATIVE) Urine Benzodiazepines Screen Negative (NEGATIVE) Urine Cocaine Screen Negative (NEGATIVE) Urine Marijuana (THC) Screen Negative (NEGATIVE) White Blood Count 8.8 K/UL (4.8-10.8) Red Blood Count 4.26 M/UL (4.70-6.10) L Hemoglobin 11.3 G/DL (14.2-18.0) L Hematocrit 35.8 % (42.0-52.0) L Mean Corpuscular Volume 84 FL (80-99) Mean Corpuscular Hemoglobin 26.5 PG (27.0-31.0) L Mean Corpuscular Hemoglobin Concent 31.5 G/DL (32.0-36.0) L Red Cell Distribution Width 14.1 % (11.6-14.8) Platelet Count 180 K/UL (150-450) Mean Platelet Volume 9.4 FL (6.5-10.1) Neutrophils (%) (Auto) 66.5 % (45.0-75.0) Lymphocytes (%) (Auto) 22.7 % (20.0-45.0) Monocytes (%) (Auto) 9.4 % (1.0-10.0) Eosinophils (%) (Auto) 0.7 % (0.0-3.0) Basophils (%) (Auto) 0.8 % (0.0-2.0) Prothrombin Time 11.3 SEC (9.30-11.50) Prothrombin Time INR 1.0 (0.9-1.1) Activated Partial Thromboplast Time 26 SEC (23-33) Sodium Level 144 MMOL/L (136-145) Potassium Level 3.8 MMOL/L (3.5-5.1) Chloride Level 108 MMOL/L (98-107) H Carbon Dioxide Level 28 MMOL/L (21-32) Anion Gap 8 mmol/L (5-15) Blood Urea Nitrogen 21 mg/dL (7-18) H Creatinine 1.4 MG/DL (0.55-1.30) H Estimated Glomerular Filtration Rate > 60 mL/min (>60) Glucose Level 140 MG/DL (74-106) H Calcium Level 8.7 MG/DL (8.5-10.1) Total Bilirubin 0.3 MG/DL (0.2-1.0) Aspartate Amino Transferase (AST) 16 U/L (15-37) Alanine Aminotransferase (ALT) 17 U/L (12-78) Alkaline Phosphatase 55 U/L (46-116) Troponin I 0.000 ng/mL (0.000-0.056) Total Protein 6.9 G/DL (6.4-8.2) Albumin 3.4 G/DL (3.4-5.0) Globulin 3.5 g/dL Albumin/Globulin Ratio 1.0 (1.0-2.7) Urine Color Pale yellow Urine Appearance Clear Urine pH 7 (4.5-8.0) Urine Specific Davis 1.010 (1.005-1.035) Urine Protein 1+ (NEGATIVE) H Urine Glucose (UA) Negative (NEGATIVE) Urine Ketones Negative (NEGATIVE) Urine Blood Negative (NEGATIVE) Urine Nitrite Negative (NEGATIVE) Urine Bilirubin Negative (NEGATIVE) Urine Urobilinogen 1 MG/DL (0.0-1.0) H Urine Leukocyte Esterase 1+ (NEGATIVE) H Urine RBC 0 /HPF (0 - 0) Urine WBC 0-2 /HPF (0 - 0) Urine Squamous Epithelial Cells Occasional /LPF Urine Bacteria Occasional /HPF (NONE) EKG Diagnostic Results Rate: normal Rhythm: NSR ST Segments: no acute changes Other Impression Compared with previous EKG 11/04. Unchanged. Rhythm Strip Diag. Results EP Interpretation: yes Rate: 60's Rhythm: NSR, no PVC's, no ectopy Chest X-Ray Diagnostic Results Chest X-Ray Diagnostic Results : Chest X-Ray Ordered: Yes Indication: Chest Pain EP Interpretation: Yes Interpretation: no consolidation, no effusion, no pneumothorax, no acute cardiopulmonary disease Impression: No acute disease Electronically Signed by: Harika Arroyo DO Last Vital Signs Date Time Temp Pulse Resp B/P (MAP) Pulse Ox O2 Delivery O2 Flow Rate FiO2 11/29/19 06:37 98.4 71 16 145/80 (101) 96 Room Air Status: improved Disposition: HOME, SELF-CARE Condition: Improved Patient Instructions: Nonspecific Chest Pain Harika Arroyo DO Nov 29, 2019 06:58
[2019-11-29] MEDS ORDERED: Aspirin Baby 81mg ORAL ONE (07:00)
[2019-11-29 07:39] VITALS: BP 141/85
[2019-11-29 07:47] LABS: BASOPHILS % (AUTO) 0.8 % (0.0-2.0); EOSINOPHILS % (AUTO) 0.7 % (0.0-3.0); HEMATOCRIT 35.8 % (42.0-52.0); HEMOGLOBIN 11.3 G/DL (14.2-18.0); LYMPHOCYTES % (AUTO) 22.7 % (20.0-45.0); MEAN CORPUSCULAR VOLUME 84 FL (80-99); MONOCYTES % (AUTO) 9.4 % (1.0-10.0); NEUTROPHILS % (AUTO) 66.5 % (45.0-75.0); PLATELET COUNT 180 K/UL (150-450); RED BLOOD COUNT 4.26 M/UL (4.70-6.10); RED CELL DISTRIBUTION WIDTH 14.1 % (11.6-14.8); WHITE BLOOD COUNT 8.8 K/UL (4.8-10.8)
[2019-11-29 08:00] LABS: ANION GAP 8 mmol/L (5-15); BLOOD UREA NITROGEN 21 mg/dL (7-18); CALCIUM 8.7 MG/DL (8.5-10.1); CARBON DIOXIDE 28 MMOL/L (21-32); CHLORIDE 108 MMOL/L (98-107); CREATININE 1.4 MG/DL (0.55-1.30); POTASSIUM 3.8 MMOL/L (3.5-5.1); SODIUM 144 MMOL/L (136-145)
[2019-11-29 08:04] LABS: ALANINE AMINOTRANSFERASE 17 U/L (12-78); ALBUMIN 3.4 G/DL (3.4-5.0); ALKALINE PHOSPHATASE 55 U/L (46-116); ASPARTATE AMINO TRANSFERASE 16 U/L (15-37); BILIRUBIN,TOTAL 0.3 MG/DL (0.2-1.0)
[2019-11-29 08:23] LABS: APPEARANCE,URINE CLEAR; BILIRUBIN, URINE NEGATIVE (NEGATIVE); COLOR,URINE PALE YELLOW; GLUCOSE, URINE (UA) NEGATIVE (NEGATIVE); KETONES,URINE NEGATIVE (NEGATIVE); LEUKOCYTE ESTERASE ,URINE 1+ (NEGATIVE); NITRITE,URINE NEGATIVE (NEGATIVE); PH,URINE 7 (4.5-8.0); PROTEIN,URINE 1+ (NEGATIVE); UROBILINOGEN,URINE 1 MG/DL (0.0-1.0)
[2019-11-29 09:48] VITALS: BP 145/84
--- NOTE | 2019-11-29 14:05 | Diagnostic Imaging Report ---
EXAM: XR Chest, 1 View CLINICAL HISTORY: CP TECHNIQUE: Frontal view of the chest. COMPARISON: Chest radiograph on 11/10/2019 FINDINGS: Hardware: None. Lungs/pleura: Stable mild elevation of the left hemidiaphragm. No focal consolidation. No pleural effusion or pneumothorax. Heart/mediastinum: Stable mild enlargement of the cardiac silhouette. Median sternotomy changes. Left-sided pacemaker. Soft tissues: Unremarkable. Bones: No acute fracture. Upper abdomen: Normal. IMPRESSION: No acute disease identified.
== END 2019-11-29 09:48 | disposition home or self-care (01) ==
LOC: EMR 07:18
DX: R07.9 Chest pain, unspecified (principal); Z88.6 Allergy status to analgesic agent; Z91.041 Radiographic dye allergy status; I25.2 Old myocardial infarction; Z95.0 Presence of cardiac pacemaker; J44.9 Chronic obstructive pulmonary disease, unspecified; E11.9 Type 2 diabetes mellitus without complications; E78.5 Hyperlipidemia, unspecified; I11.9 Hypertensive heart disease without heart failure; I25.10 Atherosclerotic heart disease of native coronary artery without angina pectoris
CPT/HCPCS: 36415; 71045; 80053; 80307; 81003; 84484; 85025; 85610; 85730; 93005; 99284

== ENCOUNTER 2019-12-03 00:35 | Inpatient (IN) | payer MEDICARE, MEDICAID ==
[~2019-12-03] VITALS: Ht 172.7 cm; Wt 92.5 kg
[2019-12-03 00:50] VITALS: BP 141/76
[2019-12-03 01:40] LABS: BASOPHILS % (AUTO) 1.1 % (0.0-2.0); EOSINOPHILS % (AUTO) 3.7 % (0.0-3.0); HEMATOCRIT 41.2 % (42.0-52.0); HEMOGLOBIN 12.6 G/DL (14.2-18.0); MEAN CORPUSCULAR VOLUME 86 FL (80-99); NEUTROPHILS % (AUTO) 68.2 % (45.0-75.0); PLATELET COUNT 253 K/UL (150-450); RED BLOOD COUNT 4.78 M/UL (4.70-6.10); RED CELL DISTRIBUTION WIDTH 16.4 % (11.6-14.8); WHITE BLOOD COUNT 9.1 K/UL (4.8-10.8)
[2019-12-03 01:49] LABS: ANION GAP 10 mmol/L (5-15); BLOOD UREA NITROGEN 22 mg/dL (7-18); CALCIUM 10.6 MG/DL (8.5-10.1); CARBON DIOXIDE 26 MMOL/L (21-32); CHLORIDE 102 MMOL/L (98-107); CREATININE 1.6 MG/DL (0.55-1.30); POTASSIUM 4.2 MMOL/L (3.5-5.1); SODIUM 138 MMOL/L (136-145)
--- NOTE | 2019-12-03 01:57 | Emergency Room Report ---
History of Present Illness General Chief Complaint: Chest Pain Source: Patient Present Illness HPI 64-year-old male presents complaining of chest pain. Started about 1 hour ago. Sudden onset. Left-sided, pressure, 6 out of 10, radiating to the left arm. Denies shortness of breath. States he has a pacemaker. States he has history of PE and has IVC filter. On Eliquis. Denies alcohol or drug use. No other aggravating relieving factors. Denies any other associated symptoms. 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 COVID-19 Screening: Negative COVID-19 COVID-19 Testing Source: 4 days ago @ [facility] Patient History Past Medical History: DM, HTN, COPD Past Surgical History: pacemaker, other - IVC filter Pertinent Family History: none Social History: Denies: smoking, alcohol use, drug use Immunizations: UTD Reviewed Nursing Documentation: PMH: Agreed; PSxH: Agreed Nursing Documentation-PMH Hx Cardiac Problems: Yes - [place]/2016, glaucoma surgery, PACEMAKER ON LEFT CHEST Hx Hypertension: Yes Hx Pacemaker: Yes Hx Asthma: No Hx COPD: Yes Hx Diabetes: Yes - DM II Hx Cancer: No Hx Gastrointestinal Problems: No Hx Dialysis: No Hx Neurological Problems: No Hx Cerebrovascular Accident: No Hx Seizures: No Hx Headaches: Yes Review of Systems All Other Systems: negative except mentioned in HPI Physical Exam Vital Signs Date Time Temp Pulse Resp B/P (MAP) Pulse Ox O2 Delivery O2 Flow Rate FiO2 12/03/19 00:41 98.6 114 18 117/74 (88) 98 Room Air Sp02 EP Interpretation: reviewed, normal General Appearance: no apparent distress, alert, GCS 15, non-toxic Head: normocephalic, atraumatic Eyes: bilateral eye normal inspection, bilateral eye PERRL ENT: hearing grossly normal, normal pharynx, no angioedema, normal voice Neck: full range of motion, supple/symm/no masses Respiratory: chest non-tender, lungs clear, normal breath sounds, speaking full sentences Cardiovascular #1: regular rate, rhythm, no edema Cardiovascular #2: 2+ carotid (R), 2+ carotid (L), 2+ radial (R), 2+ radial (L) , 2+ dorsalis pedis (R), 2+ dorsalis pedis (L) Gastrointestinal: normal bowel sounds, non tender, soft, non-distended, no guarding, no rebound Rectal: deferred Genitourinary: normal inspection, no CVA tenderness Musculoskeletal: back normal, normal range of motion, gait/station normal, non- tender Neurologic: alert, motor strength/tone normal, oriented x3, sensory intact, responsive, speech normal Psychiatric: judgement/insight normal, memory normal, mood/affect normal, no suicidal/homicidal ideation Reflexes: 3+ bicep (R), 3+ bicep (L), 3+ tricep (R), 3+ tricep (L), 3+ knee (R) , 3+ knee (L) Skin: other - See nursing skin notes Lymphatic: no adenopathy Medical Decision Making Diagnostic Impression: Primary Impression: ACS (acute coronary syndrome) Additional Impression: Renal insufficiency ER Course Hospital Course 64-year-old male presents with chest pain. History of pacemaker. History of PE. Differential diagnoses include: IA/unstable angina, contusion, muscle strain, PTX, rib fracture Clinical course Patient placed on stretcher. on site monitor. After initial history and physical I ordered labs, EKG, chest x-ray, nitroglycerin labs reviewed-no leukocytosis. Hemoglobin/hematocrit stable BUN and creatinine mildly elevated, troponin negative, coags okay Chest [id number], pacemaker EKGnormal sinus rhythm, T wave inversions in lead III Given patient's comorbidities and changes in EKG from prior visit I believe patient would benefit from admission. Discussed with his trapper bird Dr. Lama and he will see patient Case discussed with Dr. Maria and he agreed to accept the patient to his service for further care and support I. I feel this is a highly complex case requiring extensive working including EKG/Rhythm strip, Xray/CT/US, Blood/urine lab work, repeat exams while in ED, and administration of strong opiates/narcotics for pain control, admission to hospital or close patient follow up. Diagnosis - ACS, renal insufficiency admitted to telemetry in serious condition Labs Test 12/03/19 00:53 White Blood Count 9.1 K/UL (4.8-10.8) Red Blood Count 4.78 M/UL (4.70-6.10) Hemoglobin 12.6 G/DL (14.2-18.0) Hematocrit 41.2 % (42.0-52.0) Mean Corpuscular Volume 86 FL (80-99) Mean Corpuscular Hemoglobin 26.4 PG (27.0-31.0) Mean Corpuscular Hemoglobin Concent 30.6 G/DL (32.0-36.0) Red Cell Distribution Width 16.4 % (11.6-14.8) Platelet Count 253 K/UL (150-450) Mean Platelet Volume 10.4 FL (6.5-10.1) Neutrophils (%) (Auto) 68.2 % (45.0-75.0) Lymphocytes (%) (Auto) 20.0 % (20.0-45.0) Monocytes (%) (Auto) 7.0 % (1.0-10.0) Eosinophils (%) (Auto) 3.7 % (0.0-3.0) Basophils (%) (Auto) 1.1 % (0.0-2.0) Prothrombin Time 10.8 SEC (9.30-11.50) Prothromb Time International Ratio 1.0 (0.9-1.1) Activated Partial Thromboplast Time 27 SEC (23-33) Sodium Level 138 MMOL/L (136-145) Potassium Level 4.2 MMOL/L (3.5-5.1) Chloride Level 102 MMOL/L (98-107) Carbon Dioxide Level 26 MMOL/L (21-32) Anion Gap 10 mmol/L (5-15) Blood Urea Nitrogen 22 mg/dL (7-18) Creatinine 1.6 MG/DL (0.55-1.30) Estimat Glomerular Filtration Rate 53.3 mL/min (>60) Glucose Level 227 MG/DL (74-106) Calcium Level 10.6 MG/DL (8.5-10.1) Total Bilirubin 0.3 MG/DL (0.2-1.0) Aspartate Amino Transf (AST/SGOT) < 5 U/L (15-37) Alanine Aminotransferase (ALT/SGPT) 8 U/L (12-78) Alkaline Phosphatase 79 U/L (46-116) Troponin I 0.003 ng/mL (0.000-0.056) Pro-B-Type Natriuretic Peptide 58 pg/mL (0-125) Total Protein 7.2 G/DL (6.4-8.2) Albumin 3.6 G/DL (3.4-5.0) Globulin 3.6 g/dL Albumin/Globulin Ratio 1.0 (1.0-2.7) EKG Diagnostic Results Rate: normal Rhythm: NSR ST Segments: other - T wave inversions in lead III ASA given to the pt in ED: No - On Eliquis Rhythm Strip Diag. Results EP Interpretation: yes Rhythm: NSR, no PVC's, no ectopy Chest X-Ray Diagnostic Results Chest X-Ray Diagnostic Results : Chest X-Ray Ordered: Yes # of Views/Limited/Complete: 1 View Indication: Chest Pain EP Interpretation: Yes Interpretation: no consolidation, no effusion, no pneumothorax, no acute cardiopulmonary disease, other - Pacemaker Impression: No acute disease Electronically Signed by: Electronically signed by Alden Rodríguez MD Last Vital Signs Date Time Temp Pulse Resp B/P (MAP) Pulse Ox O2 Delivery O2 Flow Rate FiO2 12/03/19 00:50 98.6 97 18 141/76 99 Room Air Status: improved Disposition: ADMITTED INPATIENT Condition: Serious Referrals: NOT CHOSEN IPA/,REFERRING (PCP) Alden Rodríguez MD Dec 03, 2019 01:57
[2019-12-03 02:00] LABS: ALANINE AMINOTRANSFERASE 8 U/L (12-78); ALBUMIN 3.6 G/DL (3.4-5.0); ALKALINE PHOSPHATASE 79 U/L (46-116); ASPARTATE AMINO TRANSFERASE < 5 U/L (15-37); BILIRUBIN,TOTAL 0.3 MG/DL (0.2-1.0)
[2019-12-03] MEDS: Nitroglycerin Subl 0.4mg tab SL PRN ×3 (02:26→02:43)
[2019-12-03 03:00] VITALS: BP 112/72
[2019-12-03] MEDS ORDERED: Acetaminophen 500mg (ES) tab ORAL PRN (05:15)
[2019-12-03] MEDS: metFORMIN 500mg tab ORAL SCH ×2 (06:30→17:27)
[2019-12-03 08:00] VITALS: BP 112/71
[2019-12-03] MEDS: Brimonidine 0.2% Opth Sol BOTH EYES SCH ×2 (08:45→17:27)
[2019-12-03] MEDS: Eliquis 5mg tablet ORAL SCH ×2 (08:45→20:47)
[2019-12-03] MEDS: Cosopt Opth Soln 10 mL Btl BOTH EYES SCH ×2 (08:45→17:27)
--- NOTE | 2019-12-03 09:59 | Consultation ---
History of Present Illness General Date patient seen: Dec 03, 2019 Chief Complaint: Present Illness Allergies: Coded Allergies: HYDROMORPHONE (Verified Allergy, Unknown, 09/02/19) Uncoded Allergies: CONTRAST DYE (Allergy, Unknown, 03/15/19) IODINE CONTRAST (Allergy, Unknown, 09/26/19) Medication History Scheduled Apixaban (Eliquis), 5 MG PO BID, (Reported) Atorvastatin Calcium* (Lipitor*), 10 MG ORAL DAILY, (Reported) Brimonidine Tartrate* (Alphagan*), 2 DROP BOTH EYES BID, (Reported) Dorzolamide HCl/Timolol Maleat (Dorzolamide-Timolol Eye Drops), 1 DROP BOTH EYES TWICE A DAY, (Reported) Finasteride* (Proscar*), 5 MG ORAL DAILY, (Reported) Metformin Hcl* (Metformin Hcl*), 500 MG ORAL TWICE A DAY, (Reported) Tamsulosin Hcl (Tamsulosin Hcl*), 0.4 MG ORAL BEDTIME, (Reported) Travoprost (Benzalkonium) (Travatan 0.004% Eye Drop), 1 DROP BOTH EYES BEDTIME, (Reported) Discontinued Medications Ketoconazole (Ketoconazole), 1 APPLIC TOPIC BID, (Reported) Discontinued Reason: Therapy completed Nitrofurantoin Macrocrystal (Nitrofurantoin), 1 GM MC BID, (Reported) Discontinued Reason: Therapy completed Patient History Healthcare decision maker Resuscitation status Advanced Directive on File Physical Exam Last 24 Hour Vital Signs Date Time Temp Pulse Resp B/P (MAP) Pulse Ox O2 Delivery O2 Flow Rate FiO2 12/03/19 09:00 Room Air 12/03/19 08:00 88 12/03/19 08:00 97.9 85 18 112/71 (85) 97 12/03/19 04:28 Room Air 12/03/19 04:00 93 12/03/19 03:09 Room Air 12/03/19 03:00 128 12/03/19 03:00 97.9 116 20 112/72 (85) 98 12/03/19 02:46 98.5 113 20 104/64 99 Room Air 12/03/19 02:43 104/64 12/03/19 02:33 119/73 12/03/19 02:26 122/63 12/03/19 00:50 98.6 97 18 141/76 99 Room Air 12/03/19 00:50 97 18 Room Air 12/03/19 00:41 98.6 114 18 117/74 (88) 98 Room Air Intake and Output 12/02/19 12/03/19 19:00 07:00 Intake Total 0 ml Balance 0 ml Intake Oral 0 ml # Voids 1 # Bowel Movements 2 Laboratory Tests Test 12/03/19 00:53 12/03/19 05:58 White Blood Count 9.1 K/UL (4.8-10.8) Red Blood Count 4.78 M/UL (4.70-6.10) Hemoglobin 12.6 G/DL (14.2-18.0) L Hematocrit 41.2 % (42.0-52.0) L Mean Corpuscular Volume 86 FL (80-99) Mean Corpuscular Hemoglobin 26.4 PG (27.0-31.0) L Mean Corpuscular Hemoglobin Concent 30.6 G/DL (32.0-36.0) L Red Cell Distribution Width 16.4 % (11.6-14.8) H Platelet Count 253 K/UL (150-450) Mean Platelet Volume 10.4 FL (6.5-10.1) H Neutrophils (%) (Auto) 68.2 % (45.0-75.0) Lymphocytes (%) (Auto) 20.0 % (20.0-45.0) Monocytes (%) (Auto) 7.0 % (1.0-10.0) Eosinophils (%) (Auto) 3.7 % (0.0-3.0) H Basophils (%) (Auto) 1.1 % (0.0-2.0) Prothrombin Time 10.8 SEC (9.30-11.50) Prothromb Time International Ratio 1.0 (0.9-1.1) Activated Partial Thromboplast Time 27 SEC (23-33) Sodium Level 138 MMOL/L (136-145) Potassium Level 4.2 MMOL/L (3.5-5.1) Chloride Level 102 MMOL/L (98-107) Carbon Dioxide Level 26 MMOL/L (21-32) Anion Gap 10 mmol/L (5-15) Blood Urea Nitrogen 22 mg/dL (7-18) H Creatinine 1.6 MG/DL (0.55-1.30) H Estimat Glomerular Filtration Rate 53.3 mL/min (>60) Glucose Level 227 MG/DL (74-106) H Calcium Level 10.6 MG/DL (8.5-10.1) H Total Bilirubin 0.3 MG/DL (0.2-1.0) Aspartate Amino Transf (AST/SGOT) < 5 U/L (15-37) L Alanine Aminotransferase (ALT/SGPT) 8 U/L (12-78) L Alkaline Phosphatase 79 U/L (46-116) Troponin I 0.003 ng/mL (0.000-0.056) 0.011 ng/mL (0.000-0.056) Pro-B-Type Natriuretic Peptide 58 pg/mL (0-125) Total Protein 7.2 G/DL (6.4-8.2) Albumin 3.6 G/DL (3.4-5.0) Globulin 3.6 g/dL Albumin/Globulin Ratio 1.0 (1.0-2.7) Microbiology Date/Time Source Procedure Growth Status 12/03/19 02:30 Rectum Received Height (Feet): 5 Height (Inches): 8.00 Weight (Pounds): 204 Medications Current Medications Medications (Trade) Dose Ordered Sig/Kristan Route PRN Reason Start Time Stop Time Status Last Admin Dose Admin Acetaminophen (Tylenol) 500 mg Q4H PRN ORAL Mild Pain (Pain Scale 1-3) 12/03/19 05:15 01/02/20 05:14 Apixaban (Eliquis) 5 mg BID@0900,2100 ORAL 12/03/19 09:00 03/02/20 08:59 12/03/19 08:45 Atorvastatin Calcium (Lipitor) 10 mg BEDTIME ORAL 12/03/19 21:00 03/02/20 20:59 Brimonidine Tartrate (Alphagan) 1 drop BID BOTH EYES 12/03/19 09:00 03/02/20 08:59 12/03/19 08:45 Dorzolamide/ Timolol (Cosopt) 1 drop TWICE A DAY BOTH EYES 12/03/19 09:00 01/02/20 08:59 12/03/19 08:45 Finasteride (Proscar) 5 mg DAILY ORAL 12/03/19 09:00 03/02/20 08:59 12/03/19 08:45 Metformin HCl (Glucophage) 500 mg BID@0630,1630 ORAL 12/03/19 06:30 01/02/20 06:29 Nitroglycerin (Ntg) 0.4 mg Q5M PRN SL Prn Chest Pain 12/03/19 01:15 01/02/20 01:14 12/03/19 02:43 Tamsulosin HCl (Flomax) 0.4 mg BEDTIME ORAL 12/03/19 21:00 01/02/20 20:59 Assessment/Plan Assessment/Plan: (1) ACS Chest pain (2) Cervical DDD (3) Cervical Spondylosis (4) Cervical Radiculopathy Seen dictated Hank Phan Dec 03, 2019 09:59
--- NOTE | 2019-12-03 10:06 | Diagnostic Imaging Report ---
Procedure: XRAY Chest 1v Reason for study: Chest pain Comparison films: 11/29/2019. FINDINGS: Cardiac pacer remains in place. Vascularity is normal. The lung owen are clear bilaterally. Cardiac and mediastinal silhouette are within normal limits. CP angles are sharp. The bony thorax appear unremarkable. IMPRESSION: NO ACUTE CARDIOPULMONARY DISEASE.
[2019-12-03] MEDS: traMADol 50mg tab ORAL PRN ×3 (10:13→21:37)
[2019-12-03 12:00] VITALS: BP 101/61
--- NOTE | 2019-12-03 12:45 | Consultation ---
DATE OF CONSULTATION: 12/03/2019 PULMONARY CONSULTATION CONSULTING PHYSICIAN: Burke Tamayo MD. HISTORY OF PRESENT ILLNESS: This is a 64-year-old patient who is well known to my office as well as hospital practice. The patient presented to the emergency room today complaining of chest pain. The patient states he has been helping a friend move a piece of furniture and had chest pain. The patient has a previous significant history of permanent pacemaker, pulmonary embolism and IVC filter. He is on anticoagulation with Eliquis. Currently, he states he is feeling better. He has taken tramadol with relief. PAST MEDICAL HISTORY: Notable for permanent pacemaker, diabetes mellitus, hypertension, COPD, history of pulmonary embolism, IVC filter in place, chronic anticoagulation. HOME MEDICATIONS: Reviewed and reconciled in chart. REVIEW OF SYSTEMS: Denies any headaches, hematemesis, melena, hematochezia, or weight loss. PHYSICAL EXAMINATION: GENERAL: Reveals a 64-year-old male. VITAL SIGNS: Blood pressure 130/60, heart rate , respirations . O2 saturation is on room air. HEENT: Unremarkable. LUNGS: Clear breath sounds. ABDOMEN: Soft. EXTREMITIES: There is no edema. NEUROLOGIC: Nonfocal. LABORATORY DATA: Lab testing shows normal CBC and BMP. Troponin negative x2. IMPRESSION: 1. Musculoskeletal chest pain. 2. Permanent pacemaker. 3. History of pulmonary embolism, on Eliquis. 4. Diabetes mellitus. 5. Hypertension. 6. Chronic obstructive pulmonary disease. DISCUSSION: As the patient is doing well, I do not suspect a cardiac cause in pain. Anticipate discharge home on oral pain medications. Outpatient followup. Burke Tamayo M.D. DR: CHUCKIE JOB#: [id number] CC:
--- NOTE | 2019-12-03 12:50 | Consultation ---
History of Present Illness General Chief Complaint: Chest Pain Present Illness Allergies: Coded Allergies: HYDROMORPHONE (Verified Allergy, Unknown, 09/02/19) Uncoded Allergies: CONTRAST DYE (Allergy, Unknown, 03/15/19) IODINE CONTRAST (Allergy, Unknown, 09/26/19) Medication History Scheduled Apixaban (Eliquis), 5 MG PO BID, (Reported) Atorvastatin Calcium* (Lipitor*), 10 MG ORAL DAILY, (Reported) Brimonidine Tartrate* (Alphagan*), 2 DROP BOTH EYES BID, (Reported) Dorzolamide HCl/Timolol Maleat (Dorzolamide-Timolol Eye Drops), 1 DROP BOTH EYES TWICE A DAY, (Reported) Finasteride* (Proscar*), 5 MG ORAL DAILY, (Reported) Metformin Hcl* (Metformin Hcl*), 500 MG ORAL TWICE A DAY, (Reported) Tamsulosin Hcl (Tamsulosin Hcl*), 0.4 MG ORAL BEDTIME, (Reported) Travoprost (Benzalkonium) (Travatan 0.004% Eye Drop), 1 DROP BOTH EYES BEDTIME, (Reported) Discontinued Medications Ketoconazole (Ketoconazole), 1 APPLIC TOPIC BID, (Reported) Discontinued Reason: Therapy completed Nitrofurantoin Macrocrystal (Nitrofurantoin), 1 GM MC BID, (Reported) Discontinued Reason: Therapy completed Patient History Healthcare decision maker Resuscitation status Advanced Directive on File Physical Exam Last 24 Hour Vital Signs Date Time Temp Pulse Resp B/P (MAP) Pulse Ox O2 Delivery O2 Flow Rate FiO2 12/03/19 12:00 98.6 81 18 101/61 (74) 98 12/03/19 12:00 71 12/03/19 09:00 Room Air 12/03/19 08:00 88 12/03/19 08:00 97.9 85 18 112/71 (85) 97 12/03/19 04:28 Room Air 12/03/19 04:00 93 12/03/19 03:09 Room Air 12/03/19 03:00 128 12/03/19 03:00 97.9 116 20 112/72 (85) 98 12/03/19 02:46 98.5 113 20 104/64 99 Room Air 12/03/19 02:43 104/64 12/03/19 02:33 119/73 12/03/19 02:26 122/63 12/03/19 00:50 98.6 97 18 141/76 99 Room Air 12/03/19 00:50 97 18 Room Air 12/03/19 00:41 98.6 114 18 117/74 (88) 98 Room Air Intake and Output 12/02/19 12/03/19 19:00 07:00 Intake Total 0 ml Balance 0 ml Intake Oral 0 ml # Voids 1 # Bowel Movements 2 Laboratory Tests Test 12/03/19 00:53 12/03/19 05:58 White Blood Count 9.1 K/UL (4.8-10.8) Red Blood Count 4.78 M/UL (4.70-6.10) Hemoglobin 12.6 G/DL (14.2-18.0) L Hematocrit 41.2 % (42.0-52.0) L Mean Corpuscular Volume 86 FL (80-99) Mean Corpuscular Hemoglobin 26.4 PG (27.0-31.0) L Mean Corpuscular Hemoglobin Concent 30.6 G/DL (32.0-36.0) L Red Cell Distribution Width 16.4 % (11.6-14.8) H Platelet Count 253 K/UL (150-450) Mean Platelet Volume 10.4 FL (6.5-10.1) H Neutrophils (%) (Auto) 68.2 % (45.0-75.0) Lymphocytes (%) (Auto) 20.0 % (20.0-45.0) Monocytes (%) (Auto) 7.0 % (1.0-10.0) Eosinophils (%) (Auto) 3.7 % (0.0-3.0) H Basophils (%) (Auto) 1.1 % (0.0-2.0) Prothrombin Time 10.8 SEC (9.30-11.50) Prothromb Time International Ratio 1.0 (0.9-1.1) Activated Partial Thromboplast Time 27 SEC (23-33) Sodium Level 138 MMOL/L (136-145) Potassium Level 4.2 MMOL/L (3.5-5.1) Chloride Level 102 MMOL/L (98-107) Carbon Dioxide Level 26 MMOL/L (21-32) Anion Gap 10 mmol/L (5-15) Blood Urea Nitrogen 22 mg/dL (7-18) H Creatinine 1.6 MG/DL (0.55-1.30) H Estimat Glomerular Filtration Rate 53.3 mL/min (>60) Glucose Level 227 MG/DL (74-106) H Calcium Level 10.6 MG/DL (8.5-10.1) H Total Bilirubin 0.3 MG/DL (0.2-1.0) Aspartate Amino Transf (AST/SGOT) < 5 U/L (15-37) L Alanine Aminotransferase (ALT/SGPT) 8 U/L (12-78) L Alkaline Phosphatase 79 U/L (46-116) Troponin I 0.003 ng/mL (0.000-0.056) 0.011 ng/mL (0.000-0.056) Pro-B-Type Natriuretic Peptide 58 pg/mL (0-125) Total Protein 7.2 G/DL (6.4-8.2) Albumin 3.6 G/DL (3.4-5.0) Globulin 3.6 g/dL Albumin/Globulin Ratio 1.0 (1.0-2.7) Microbiology Date/Time Source Procedure Growth Status 12/03/19 02:30 Rectum Received Height (Feet): 5 Height (Inches): 8.00 Weight (Pounds): 204 Medications Current Medications Medications (Trade) Dose Ordered Sig/Kristan Route PRN Reason Start Time Stop Time Status Last Admin Dose Admin Acetaminophen (Tylenol) 500 mg Q4H PRN ORAL Mild Pain (Pain Scale 1-3) 12/03/19 05:15 01/02/20 05:14 Apixaban (Eliquis) 5 mg BID@0900,2100 ORAL 12/03/19 09:00 03/02/20 08:59 12/03/19 08:45 Atorvastatin Calcium (Lipitor) 10 mg BEDTIME ORAL 12/03/19 21:00 03/02/20 20:59 Brimonidine Tartrate (Alphagan) 1 drop BID BOTH EYES 12/03/19 09:00 03/02/20 08:59 12/03/19 08:45 Dorzolamide/ Timolol (Cosopt) 1 drop TWICE A DAY BOTH EYES 12/03/19 09:00 01/02/20 08:59 6/17/20 08:45 Finasteride (Proscar) 5 mg DAILY ORAL 12/03/19 09:00 03/02/20 08:59 12/03/19 08:45 Metformin HCl (Glucophage) 500 mg BID@0630,1630 ORAL 12/03/19 06:30 01/02/20 06:29 Nitroglycerin (Ntg) 0.4 mg Q5M PRN SL Prn Chest Pain 12/03/19 01:15 01/02/20 01:14 12/03/19 02:43 Tamsulosin HCl (Flomax) 0.4 mg BEDTIME ORAL 12/03/19 21:00 01/02/20 20:59 Tramadol HCl (Ultram) 50 mg Q4H PRN ORAL Severe Pain (Pain Scale 7-10) 12/03/19 10:00 12/10/19 09:59 12/03/19 10:13 Assessment/Plan Assessment/Plan: Hematology Consultation RENerissa MD: Kevin Kelly RFC: PE and ivc filter hx DOS: 12/03/2019 ID 64-year-old male with history of CHF, PE, and pacemaker here complaining of few hours of sudden onset of left-sided chest pain without radiation. Reports that the pain started as he was resting. Denies any exertion. Patient has been [facility] multiple times for chest pain, is requesting to be admitted. Patient keeps calling primary doctor and stating that she is not getting. Blood draw had to be done by the production supervisor trainee from the laboratories patient is a hard stick. Denies any dizziness and headache at this time. Patient is currently on Eliquis. Last VQ scan was done April 2019 and within normal limits. Patient was evaluated by , distribution analyst when was admitted to [facility] a few months ago and was cleared. Sitting comfortably with stable vital signs. No unilateral or generalized weakness noted. Neurovascularly intact. Denies abdominal pain, nausea vomiting, cough and congestion. I have seen him many times in the past, also at [facility], is well known to me, is currently on eliquis bid dosing, he has a history of major noncompliance with care Allergies: HYDROMORPHONE (Verified Allergy, Unknown, 09/02/19) Uncoded Allergies: CONTRAST DYE (Allergy, Unknown, 03/15/19) IODINE CONTRAST (Allergy, Unknown, 09/26/19) COVID-19 Screening Contact w/high risk pt: No Recent Travel to affected area: No Experienced COVID-19 symptoms?: Yes COVID-19 symptoms experienced: Shortness of Breath Patient History Past Medical History: see triage record Past Surgical History: none Pertinent Family History: none Immunizations: UTD Reviewed Nursing Documentation: PMH: Agreed; PSxH: Agreed Nursing Documentation-PMH Hx Cardiac Problems: Yes - [place]/2017, glaucoma Hx Hypertension: Yes Hx Pacemaker: Yes Hx Asthma: No Hx COPD: Yes Hx Diabetes: Yes Hx Cancer: No Hx Gastrointestinal Problems: No Hx Dialysis: No Hx Neurological Problems: No Hx Cerebrovascular Accident: No Hx Seizures: No ROS (review of systems): Constitutional: No fever, no chills, no night sweats, no fatigue Skin: No rashes, lumps, itchiness, dryness HEENT: No CRUZ, ear ache, visual changes, double vision, nosebleeds Breasts: No lumps, pain, discharge Pulmonary: No cough, sputum, shortness of breath, coughing up blood Cardiovascular: No chest pain, tightness, palpitations, syncope, PND GI: No nausea, vomiting, diarrhea, melena, hematochezia, change in appetite, : No dysuria, frequency, urgency, urinary incontinence, foamy urine Musculoskeletal: No joint swelling or muscle pain, trauma, back pain Neurologic: No dizziness, fainting, seizures, changes in smell or taste Psychiatric: No nervousness, stress, or depression, anxiety, hallucinations Endocrine: No weight change, heat or cold intolerance, tremor, insomnia Physical Exam: Vitals: reviewed General: NAD HEENT: nc, at Neck: supple Chest: clear breath sounds bilaterally Cardiovascular: RRR, no s3, s4 Neuro: alert and oriented Labs noted Imaging: in emr Assessment and Recs # Pulmonary embolism, status post open embolectomy history. The patient has multiple V/Q scan had been negative. Most recent one in April 2019 at [facility] was also negative. --> He is on Eliquis 5 mg b.i.d. --> continue at current dosing -> is s/p ivc filter as well --> no bleeding at this time # Anemia of chronic disease --> trend h/h as needed --> currently is stable # Atypical chest pain and History of permanent pacemaker. --> in past refused stress test, to get stress treadmill test --> per Dr. Zayas and Roni # S/P [facility] pacer that was interrogated recently and showed Nl Fx # Hyperlipidemia, on Lipitor. # Diabetes, on metformin.tus post embolectomy. # RA # [place] 2017 # Dvt ppx kindra GRAHAM RN and appreciate consultation Adilson Gordon MD Dec 03, 2019 12:50
--- NOTE | 2019-12-03 13:55 | Cardiac Electrophysiology PN ---
Subjective Subjective 1. Chest pain. Already ruled out for myocardial infarction. Multiple stress tests in the past have been negative as well as multiple V/Q scans that have been negative. Will schedule for stress test if he agrees 2. Status post [facility] pacemaker with normal function 3. History of pulmonary embolism, status post embolectomy in the past. Continue Eliquis 5 mg b.i.d. 4. Diabetes, on metformin. 5. Glaucoma. 6. Hyperlipidemia, on Lipitor. Dictated [id number] Objective Last 24 Hour Vital Signs Date Time Temp Pulse Resp B/P (MAP) Pulse Ox O2 Delivery O2 Flow Rate FiO2 12/03/19 12:00 98.6 81 18 101/61 (74) 98 12/03/19 12:00 71 12/03/19 09:00 Room Air 12/03/19 08:00 88 12/03/19 08:00 97.9 85 18 112/71 (85) 97 12/03/19 04:28 Room Air 12/03/19 04:00 93 12/03/19 03:09 Room Air 12/03/19 03:00 128 12/03/19 03:00 97.9 116 20 112/72 (85) 98 12/03/19 02:46 98.5 113 20 104/64 99 Room Air 12/03/19 02:43 104/64 12/03/19 02:33 119/73 12/03/19 02:26 122/63 12/03/19 00:50 98.6 97 18 141/76 99 Room Air 12/03/19 00:50 97 18 Room Air 12/03/19 00:41 98.6 114 18 117/74 (88) 98 Room Air Intake and Output 12/02/19 12/03/19 19:00 07:00 Intake Total 0 ml Balance 0 ml Intake Oral 0 ml # Voids 1 # Bowel Movements 2 Laboratory Tests Test 12/03/19 00:53 12/03/19 05:58 White Blood Count 9.1 K/UL (4.8-10.8) Red Blood Count 4.78 M/UL (4.70-6.10) Hemoglobin 12.6 G/DL (14.2-18.0) L Hematocrit 41.2 % (42.0-52.0) L Mean Corpuscular Volume 86 FL (80-99) Mean Corpuscular Hemoglobin 26.4 PG (27.0-31.0) L Mean Corpuscular Hemoglobin Concent 30.6 G/DL (32.0-36.0) L Red Cell Distribution Width 16.4 % (11.6-14.8) H Platelet Count 253 K/UL (150-450) Mean Platelet Volume 10.4 FL (6.5-10.1) H Neutrophils (%) (Auto) 68.2 % (45.0-75.0) Lymphocytes (%) (Auto) 20.0 % (20.0-45.0) Monocytes (%) (Auto) 7.0 % (1.0-10.0) Eosinophils (%) (Auto) 3.7 % (0.0-3.0) H Basophils (%) (Auto) 1.1 % (0.0-2.0) Prothrombin Time 10.8 SEC (9.30-11.50) Prothromb Time International Ratio 1.0 (0.9-1.1) Activated Partial Thromboplast Time 27 SEC (23-33) Sodium Level 138 MMOL/L (136-145) Potassium Level 4.2 MMOL/L (3.5-5.1) Chloride Level 102 MMOL/L (98-107) Carbon Dioxide Level 26 MMOL/L (21-32) Anion Gap 10 mmol/L (5-15) Blood Urea Nitrogen 22 mg/dL (7-18) H Creatinine 1.6 MG/DL (0.55-1.30) H Estimat Glomerular Filtration Rate 53.3 mL/min (>60) Glucose Level 227 MG/DL (74-106) H Calcium Level 10.6 MG/DL (8.5-10.1) H Total Bilirubin 0.3 MG/DL (0.2-1.0) Aspartate Amino Transf (AST/SGOT) < 5 U/L (15-37) L Alanine Aminotransferase (ALT/SGPT) 8 U/L (12-78) L Alkaline Phosphatase 79 U/L (46-116) Troponin I 0.003 ng/mL (0.000-0.056) 0.011 ng/mL (0.000-0.056) Pro-B-Type Natriuretic Peptide 58 pg/mL (0-125) Total Protein 7.2 G/DL (6.4-8.2) Albumin 3.6 G/DL (3.4-5.0) Globulin 3.6 g/dL Albumin/Globulin Ratio 1.0 (1.0-2.7) Microbiology Date/Time Source Procedure Growth Status 12/03/19 02:30 Rectum Received Gato Zayas MD Dec 03, 2019 13:55
[2019-12-03] MEDS ORDERED: Lexiscan 0.4mg/5ml syringe IV PRN (14:00)
[2019-12-03 16:00] VITALS: BP 104/59
[2019-12-03 16:31] LABS: APPEARANCE,URINE CLEAR; BILIRUBIN, URINE NEGATIVE (NEGATIVE); COLOR,URINE PALE YELLOW; GLUCOSE, URINE (UA) NEGATIVE (NEGATIVE); KETONES,URINE NEGATIVE (NEGATIVE); LEUKOCYTE ESTERASE ,URINE NEGATIVE (NEGATIVE); NITRITE,URINE NEGATIVE (NEGATIVE); PH,URINE 7 (4.5-8.0); PROTEIN,URINE NEGATIVE (NEGATIVE); UROBILINOGEN,URINE NORMAL MG/DL (0.0-1.0)
--- NOTE | 2019-12-03 19:00 | Consultation ---
DATE OF CONSULTATION: 12/03/2019 CARDIOLOGY CONSULTATION CONSULTING PHYSICIAN: Gato Zayas MD. REFERRING PHYSICIAN: Carmen Maria MD. REASON FOR CONSULTATION: Chest pain and evaluation of the patient's pacemaker. HISTORY OF PRESENT ILLNESS: The patient is a 64-year-old gentleman who I am quite familiar from multiple previous hospitalizations at [facility], and [facility]. The patient has history of pulmonary embolus status post open pulmonary embolectomy as well as history of sick sinus syndrome status post pacemaker implantation at outside facility and outside physician. The patient is already on oral anticoagulation with Eliquis. The patient presented to the hospital complaining of chest pain and has taken tramadol with some relief. A Cardiology consultation was obtained for further evaluation. Troponin was negative x2 and EKG did not show any ischemia. REVIEW OF SYSTEMS: Review of systems was performed and was negative other than what was mentioned in history of present illness. PAST MEDICAL HISTORY: As mentioned above. FAMILY HISTORY: Noncontributory. SOCIAL HISTORY: He lives at home. Does not smoke or drink alcohol. PHYSICAL EXAMINATION: VITAL SIGNS: Blood pressure 110/70, pulse 60, respirations 18, and he is afebrile. HEAD AND NECK: Showed no JVD or carotid bruit. LUNGS: Clear. Status post sternotomy and the pacemaker in the left subclavian. ABDOMEN: Soft. EXTREMITIES: No pitting edema. LABORATORY AND DIAGNOSTIC DATA: White count 9.1, hemoglobin 12.6, hematocrit 41.2, and platelet count is 253. Sodium 138, potassium 4.2, BUN of 22, creatinine 1.6, and glucose of 227. His troponin negative x2. His urine toxicology screen is negative. His previous echocardiogram was April 2019 that showed ejection fraction of 60%. His last nuclear stress test was August , the patient refused to complete exam. ASSESSMENT AND PLAN: 1. Atypical chest pain. The patient has had numerous hospitalization for the same within the last few years. The patient has had multiple stress tests which have been negative . He already ruled out for myocardial infarction. His EKG is nonischemic. The patient is already on anticoagulation with Eliquis. The patient refused a stress test in August. We will reschedule the patient for a stress test in the morning for further evaluation. 2. Status post [facility] pacemaker. We will interrogate the pacemaker for further evaluation. 3. Hyperlipidemia, on Lipitor. 4. History of pulmonary embolism status post pulmonary embolectomy on Eliquis 5 mg b.i.d. 5. Diabetes on metformin. 6. Glaucoma. Thank you very much for allowing me to participate in the care of this patient. Please do not hesitate to contact me for any questions regarding my evaluation. Sincerely, Gato Zayas M.D. DR: Inder JOB#: [id number] CC:
[2019-12-03 20:00] VITALS: BP 113/65
[2019-12-03] MEDS ORDERED: Tamsulosin 0.4mg cap ORAL SCH (21:00)
--- NOTE | 2019-12-03 22:15 | Consultation ---
DATE OF CONSULTATION: 12/03/2019 PAIN MANAGEMENT CONSULTATION CONSULTING PHYSICIAN: Dyllan Arias MD. REFERRING PHYSICIAN: Carmen Maria MD. PHYSICIAN POWER DIGGER OPERATOR: JERRELL Khan CHIEF COMPLAINT: Chest pain and neck pain. HISTORY OF PRESENT ILLNESS: This is a 64-year-old male, who is being seen on the telemetry floor of [facility] for initial pain management consultation. Patient was admitted under the care of Dr. Maria due to chest pain. Ruling out ACS at this time. Also has complaints of neck pain, which is chronic radiating down into his left upper extremity. The pain is worse with movement. Has not been tolerating the current medication regimen. Due to this, we were consulted so that the patient would have adequate pain control while here in the hospital. REVIEW OF SYSTEMS: Denies rash, fever, chills, sweating, dizziness, drowsiness, blurred vision, or chest pain. No shortness of breath or chest pain. No nausea, vomiting, diarrhea, blood in stool. No dysuria. PHYSICAL EXAMINATION: GENERAL: Alert, awake, and oriented. VITAL SIGNS: Blood pressure 110/71, heart rate 85, oxygen saturation 98%, respirations 18, temperature 97.9 degrees Fahrenheit. HEENT: PERRLA. NECK: Range of motion is reduced due to patient's condition. No tenderness to paracervical muscles. No adenopathy. LUNGS: Decreased breath sounds bilaterally. HEART: S1 and S2 regular. ABDOMEN: Soft, nontender. BACK: Range of motion is decreased in flexion, extension. EXTREMITIES: Bilateral upper and lower extremity range of motion is decreased due to patient's condition. No cyanosis. No clubbing. No edema. Sensory is intact. Reflexes are not obtainable. No adenopathy. ASSESSMENT AND PLAN: This is a 64-year-old male with acute coronary syndrome, chest pain, cervical radiculopathy, cervical degenerative disease, cervical spondylosis. The patient will be continued on tramadol 50 mg tablet every 4 hours as needed for severe pain. The patient was discussed with Dr. Arias and Dr. Arias concurred. We will follow up with the patient. Thank you very much for the courtesy of this consultation. Dyllan Arias M.D. JERRELL Khan DR: RUDY JOB#: [id number] CC:
[2019-12-04] VITALS: BP 120/71
--- NOTE | 2019-12-04 02:45 | History and Physical Report ---
DATE OF ADMISSION: 12/03/2019 HISTORY OF PRESENT ILLNESS: The patient has recurrent admissions for chest pain. He has history of pain seeking and drug-seeking medications. The patient states that chest pain had started one hour before admission. Denied nausea, vomiting, or diarrhea. Denied fever or chills. Denied shortness of breath or cough. The patient has history of PE and IVC filter and also has a pacemaker. Admitted for chest pain, rule out acute coronary syndrome. PAST MEDICAL HISTORY: Arrhythmia, hypertension, COPD as well as glaucoma, BPH, NIDDM, hyperlipidemia, DVT. PAST SURGICAL HISTORY: IVC filter. ALLERGIES: To contrast dye, hydromorphone, and iodine contrast. MEDICATIONS: Lipitor, eyedrops, finasteride, metformin, Flomax, travoprost eyedrops. FAMILY HISTORY: Noncontributory. SOCIAL HISTORY: Denies history of alcohol and drug abuse. He has history of smoking. REVIEW OF SYSTEMS: HEENT: Denies headaches. RESPIRATORY: Denies shortness of breath. Denies cough. CARDIOVASCULAR: Reports chest pain, nonradiating. Denies orthopnea. GASTROINTESTINAL: Denies nausea, vomiting, or diarrhea. Denies heartburn. EXTREMITIES: Does have chronic pain syndrome. CENTRAL NERVOUS SYSTEM: No change in speech pattern. PHYSICAL EXAMINATION: VITAL SIGNS: Temperature is 97.9, pulse is 88, blood pressure is 112/71. HEENT: PERRLA. NECK: Supple. No lymphadenopathy. CHEST: Clear to auscultation. CARDIOVASCULAR: Regular rate and rhythm. No murmurs or extra sounds. GASTROINTESTINAL: Soft, nontender. No organomegaly. EXTREMITIES: No edema. He is able to move his extremities. Reflexes on both sides. LABORATORY AND DIAGNOSTIC DATA: WBC of 9.1, hemoglobin of 12.6, platelets of 253,000. Sodium 138, potassium of 4.2, BUN of 22, creatinine of 1.6, glucose of 227. Troponin 0.003. No acute change on EKG. ASSESSMENT AND PLAN: Chest pain, rule out acute coronary syndrome. 1. I have consulted Dr. Zayas to rule out acute coronary syndrome. 2. DVT, history of IVC filter. I have consulted Dr. Tamayo, Dr. Adilson Gordon to see the patient for that reason and also I have consulted Dr. Arias for pain management. The patient has history of drug-seeking behavior and we will discharge Dr. Zayas clears the patient. Carmen Maria M.D. DR: Kait JOB#: [id number] CC:
[2019-12-04 04:00] VITALS: BP 117/75
[2019-12-04] MEDS: metFORMIN 500mg tab ORAL SCH (06:00)
[2019-12-04 08:00] VITALS: BP 113/77
[2019-12-04] MEDS: Eliquis 5mg tablet ORAL SCH (09:34)
[2019-12-04] MEDS: Cosopt Opth Soln 10 mL Btl BOTH EYES SCH (09:34)
[2019-12-04] MEDS: Brimonidine 0.2% Opth Sol BOTH EYES SCH (09:34)
--- NOTE | 2019-12-04 10:11 | Cardiac Electrophysiology PN ---
Assessment/Plan Assessment/Plan 1. Chest pain. Already ruled out for myocardial infarction. Multiple stress tests in the past have been negative as well as multiple V/Q scans that have been negative. Refusing stress test this am as feels dizz. Can be done as out patient. 2. Status post [facility] [facility] pacemaker with normal function 3. History of pulmonary embolism, status post embolectomy in the past. Continue Eliquis 5 mg b.i.d. 4. Diabetes, on metformin. 5. Glaucoma. 6. Hyperlipidemia, on Lipitor. GLADYS RN and Dr Maria OK to DC Subjective Subjective Says feels dizzy and refusing stress test. Remains in SR.RN at bedside Objective Last 24 Hour Vital Signs Date Time Temp Pulse Resp B/P (MAP) Pulse Ox O2 Delivery O2 Flow Rate FiO2 12/04/19 08:00 97.9 82 18 113/77 (89) 97 12/04/19 04:00 97.7 70 19 117/75 (89) 97 12/04/19 04:00 67 12/04/19 00:00 97.9 82 19 120/71 (87) 97 12/04/19 00:00 81 12/03/19 22:10 96.6 12/03/19 21:00 Room Air 12/03/19 20:00 97 12/03/19 20:00 97.7 76 19 113/65 (81) 97 12/03/19 16:00 79 12/03/19 16:00 96.6 69 20 104/59 (74) 97 12/03/19 12:00 98.6 81 18 101/61 (74) 98 12/03/19 12:00 71 Intake and Output 12/03/19 12/04/19 19:00 07:00 Intake Total 140 ml Output Total 1200 ml Balance -1060 ml Intake Oral 140 ml Output Urine Total 1200 ml # Voids 3 3 Laboratory Tests Test 12/03/19 15:30 Urine Color Pale yellow Urine Appearance Clear Urine pH 7 (4.5-8.0) Urine Specific [place] 1.015 (1.005-1.035) Urine Protein Negative (NEGATIVE) Urine Glucose (UA) Negative (NEGATIVE) Urine Ketones Negative (NEGATIVE) Urine Blood Negative (NEGATIVE) Urine Nitrite Negative (NEGATIVE) Urine Bilirubin Negative (NEGATIVE) Urine Urobilinogen Normal MG/DL (0.0-1.0) Urine Leukocyte Esterase Negative (NEGATIVE) Urine RBC 0 /HPF (0 - 0) Urine WBC 0-2 /HPF (0 - 0) Urine Squamous Epithelial Cells None /LPF (NONE/OCC) Urine Bacteria Occasional /HPF (NONE) Urine Random Sodium 89 mmol/L (20-110) Microbiology Date/Time Source Procedure Growth Status 12/03/19 02:30 Rectum Received Objective HEAD AND NECK: Showed no JVD or carotid bruit. LUNGS: Clear. Status post sternotomy and the pacemaker in the left subclavian. ABDOMEN: Soft. EXTREMITIES: No pitting edema. Gato Zayas MD Dec 04, 2019 10:11
--- NOTE | 2019-12-04 10:29 | Pulmonology Progress Note ---
Subjective Interval Events: None new Constitutional: Reports: no symptoms HEENT: Repors: no symptoms Respiratory: Reports: no symptoms Cardiovascular: Reports: no symptoms Gastrointestinal/Abdominal: Reports: no symptoms Allergies: Coded Allergies: HYDROMORPHONE (Verified Allergy, Unknown, 09/02/19) Uncoded Allergies: CONTRAST DYE (Allergy, Unknown, 03/15/19) IODINE CONTRAST (Allergy, Unknown, 09/26/19) Objective Last 24 Hour Vital Signs Date Time Temp Pulse Resp B/P (MAP) Pulse Ox O2 Delivery O2 Flow Rate FiO2 12/04/19 08:00 97.9 82 18 113/77 (89) 97 12/04/19 04:00 97.7 70 19 117/75 (89) 97 12/04/19 04:00 67 12/04/19 00:00 97.9 82 19 120/71 (87) 97 12/04/19 00:00 81 12/03/19 22:10 96.6 12/03/19 21:00 Room Air 12/03/19 20:00 97 12/03/19 20:00 97.7 76 19 113/65 (81) 97 12/03/19 16:00 79 12/03/19 16:00 96.6 69 20 104/59 (74) 97 12/03/19 12:00 98.6 81 18 101/61 (74) 98 12/03/19 12:00 71 Intake and Output 12/03/19 12/04/19 19:00 07:00 Intake Total 140 ml Output Total 1200 ml Balance -1060 ml Intake Oral 140 ml Output Urine Total 1200 ml # Voids 3 3 General Appearance: no acute distress HEENT: normocephalic Respiratory: chest wall non-tender, lungs clear Cardiovascular: normal peripheral pulses Abdomen: normal bowel sounds Microbiology Date/Time Source Procedure Growth Status 12/03/19 02:30 Rectum Received Laboratory Tests 12/03/19 15:30: Urine Color Pale yellow, Urine Appearance Clear, Urine pH 7, Urine Specific [place] 1.015, Urine Protein Negative, Urine Glucose (UA) Negative, Urine Ketones Negative, Urine Blood Negative, Urine Nitrite Negative, Urine Bilirubin Negative, Urine Urobilinogen Normal, Urine Leukocyte Esterase Negative, Urine RBC 0, Urine WBC 0-2, Urine Squamous Epithelial Cells None, Urine Bacteria Occasional, Urine Random Sodium 89 Current Medications Medications (Trade) Dose Ordered Sig/Kristan Route PRN Reason Start Time Stop Time Status Last Admin Dose Admin Acetaminophen (Tylenol) 500 mg Q4H PRN ORAL Mild Pain (Pain Scale 1-3) 12/03/19 05:15 01/02/20 05:14 Apixaban (Eliquis) 5 mg BID@0900,2100 ORAL 12/03/19 09:00 03/02/20 08:59 12/04/19 09:34 Atorvastatin Calcium (Lipitor) 10 mg BEDTIME ORAL 12/03/19 21:00 03/02/20 20:59 12/03/19 20:47 Brimonidine Tartrate (Alphagan) 1 drop BID BOTH EYES 12/03/19 09:00 03/02/20 08:59 12/04/19 09:34 Dorzolamide/ Timolol (Cosopt) 1 drop TWICE A DAY BOTH EYES 12/03/19 09:00 01/02/20 08:59 12/04/19 09:34 Finasteride (Proscar) 5 mg DAILY ORAL 12/03/19 09:00 03/02/20 08:59 12/04/19 09:33 Metformin HCl (Glucophage) 500 mg BID@0630,1630 ORAL 12/03/19 06:30 01/02/20 06:29 12/03/19 17:27 Nitroglycerin (Ntg) 0.4 mg Q5M PRN SL Prn Chest Pain 12/03/19 01:15 01/02/20 01:14 12/03/19 02:43 Regadenoson (Lexiscan) 0.4 mg ONCE PRN IV stress test 12/03/19 14:00 12/05/19 13:59 Tamsulosin HCl (Flomax) 0.4 mg BEDTIME ORAL 12/03/19 21:00 01/02/20 20:59 12/03/19 20:47 Tramadol HCl (Ultram) 50 mg Q4H PRN ORAL Severe Pain (Pain Scale 7-10) 12/03/19 10:00 12/10/19 09:59 12/03/19 21:37 Assessment/Plan Assessment/Plan IMPRESSION: 1. Musculoskeletal chest pain. 2. Permanent pacemaker. 3. History of pulmonary embolism, on Eliquis. 4. Diabetes mellitus. 5. Hypertension. 6. Chronic obstructive pulmonary disease. DISCUSSION: As the patient is doing well, I do not suspect a cardiac cause in pain. Anticipate discharge home on oral pain medications. Outpatient followup. Jeanie Flores Omar Syed MD Dec 04, 2019 10:29
[2019-12-04 12:00] VITALS: BP 109/55
--- NOTE | 2019-12-04 12:57 | Hematology/Onc Progress Note ---
Assessment/Plan Assessment/Plan Assessment and Recs # Pulmonary embolism, status post open embolectomy history. The patient has multiple V/Q scan had been negative. Most recent one in April 2019 at [facility] was also negative. --> He is on Eliquis 5 mg b.i.d. --> continue at current dosing -> is s/p ivc filter as well --> no bleeding at this time # Anemia of chronic disease --> trend h/h as needed --> currently is stable # Atypical chest pain and History of permanent pacemaker. --> in past refused stress test, to get stress treadmill test --> per Dr. Zayas and Roni # S/P [facility] pacer that was interrogated recently and showed Nl Fx # Hyperlipidemia, on Lipitor. # Diabetes, on metformin.tus post embolectomy. # RA # MD 2017 # Dvt ppx kindra GRAHAM RN and appreciate consultation Subjective Constitutional: Denies: no symptoms, chills, fever, malaise, weakness, other HEENT: Denies: no symptoms, eye pain, blurred vision, tearing, double vision, ear pain, ear discharge, nose pain, nose congestion, throat pain, throat swelling, mouth pain, mouth swelling, other Cardiovascular: Denies: no symptoms, chest pain, edema, irregular heart rate, lightheadedness, palpitations, syncope, other Respiratory: Denies: no symptoms, cough, shortness of breath, SOB with excertion, SOB at rest, sputum, wheezing, other Gastrointestinal/Abdominal: Denies: no symptoms, abdomen distended, abdominal pain, black stools, tarry stools, blood in stool, constipated, diarrhea, difficulty swallowing, nausea, poor appetite, poor fluid intake, rectal bleeding , vomiting, other Genitourinary: Denies: no symptoms, burning, discharge, frequency, flank pain, hematuria, incontinence, pain, urgency, other Neurologic/Psychiatric: Denies: no symptoms, anxiety, depressed, emotional problems, headache, numbness, paresthesia, pre-existing deficit, seizure, tingling, tremors, weakness, other Endocrine: Denies: no symptoms, excessive sweating, flushing, intolerance to cold, intolerance to heat, increased hunger, increased thirst, increased urine, unexplained weight gain, unexplained weight loss, other Allergies: Coded Allergies: HYDROMORPHONE (Verified Allergy, Unknown, 09/02/19) Uncoded Allergies: CONTRAST DYE (Allergy, Unknown, 03/15/19) IODINE CONTRAST (Allergy, Unknown, 09/26/19) Subjective 12/03 labs noted, without bleeding, meds have been reviewed Objective Objective Current Medications Medications (Trade) Dose Ordered Sig/Kristan Route PRN Reason Start Time Stop Time Status Last Admin Dose Admin Acetaminophen (Tylenol) 500 mg Q4H PRN ORAL Mild Pain (Pain Scale 1-3) 12/03/19 05:15 01/02/20 05:14 Apixaban (Eliquis) 5 mg BID@0900,2100 ORAL 12/03/19 09:00 03/02/20 08:59 12/04/19 09:34 Atorvastatin Calcium (Lipitor) 10 mg BEDTIME ORAL 12/03/19 21:00 03/02/20 20:59 12/03/19 20:47 Brimonidine Tartrate (Alphagan) 1 drop BID BOTH EYES 12/03/19 09:00 03/02/20 08:59 12/04/19 09:34 Dorzolamide/ Timolol (Cosopt) 1 drop TWICE A DAY BOTH EYES 12/03/19 09:00 01/02/20 08:59 12/04/19 09:34 Finasteride (Proscar) 5 mg DAILY ORAL 12/03/19 09:00 03/02/20 08:59 12/04/19 09:33 Metformin HCl (Glucophage) 500 mg BID@0630,1630 ORAL 12/03/19 06:30 01/02/20 06:29 12/03/19 17:27 Nitroglycerin (Ntg) 0.4 mg Q5M PRN SL Prn Chest Pain 12/03/19 01:15 01/02/20 01:14 12/03/19 02:43 Regadenoson (Lexiscan) 0.4 mg ONCE PRN IV stress test 12/03/19 14:00 12/05/19 13:59 Tamsulosin HCl (Flomax) 0.4 mg BEDTIME ORAL 12/03/19 21:00 01/02/20 20:59 12/03/19 20:47 Tramadol HCl (Ultram) 50 mg Q4H PRN ORAL Severe Pain (Pain Scale 7-10) 12/03/19 10:00 12/10/19 09:59 12/03/19 21:37 Last 24 Hour Vital Signs Date Time Temp Pulse Resp B/P (MAP) Pulse Ox O2 Delivery O2 Flow Rate FiO2 12/04/19 09:00 Room Air 12/04/19 08:00 97.9 82 18 113/77 (89) 97 12/04/19 07:52 82 12/04/19 04:00 97.7 70 19 117/75 (89) 97 12/04/19 04:00 67 12/04/19 00:00 97.9 82 19 120/71 (87) 97 12/04/19 00:00 81 12/03/19 22:10 96.6 12/03/19 21:00 Room Air 12/03/19 20:00 97 12/03/19 20:00 97.7 76 19 113/65 (81) 97 12/03/19 16:00 79 12/03/19 16:00 96.6 69 20 104/59 (74) 97 12/03/19 12:00 98.6 81 18 101/61 (74) 98 12/03/19 12:00 71 12/03/19 09:00 Room Air 12/03/19 08:00 88 12/03/19 08:00 97.9 85 18 112/71 (85) 97 12/03/19 04:28 Room Air 12/03/19 04:00 93 12/03/19 03:09 Room Air 12/03/19 03:00 128 12/03/19 03:00 97.9 116 20 112/72 (85) 98 12/03/19 02:46 98.5 113 20 104/64 99 Room Air 12/03/19 02:43 104/64 12/03/19 02:33 119/73 12/03/19 02:26 122/63 12/03/19 00:50 98.6 97 18 141/76 99 Room Air 12/03/19 00:50 97 18 Room Air 12/03/19 00:41 98.6 114 18 117/74 (88) 98 Room Air Intake and Output 12/03/19 12/04/19 19:00 07:00 Intake Total 140 ml Output Total 1200 ml Balance -1060 ml Intake Oral 140 ml Output Urine Total 1200 ml # Voids 3 3 Labs Test 12/03/19 00:53 12/03/19 05:58 12/03/19 15:30 White Blood Count 9.1 K/UL (4.8-10.8) Red Blood Count 4.78 M/UL (4.70-6.10) Hemoglobin 12.6 G/DL (14.2-18.0) Hematocrit 41.2 % (42.0-52.0) Mean Corpuscular Volume 86 FL (80-99) Mean Corpuscular Hemoglobin 26.4 PG (27.0-31.0) Mean Corpuscular Hemoglobin Concent 30.6 G/DL (32.0-36.0) Red Cell Distribution Width 16.4 % (11.6-14.8) Platelet Count 253 K/UL (150-450) Mean Platelet Volume 10.4 FL (6.5-10.1) Neutrophils (%) (Auto) 68.2 % (45.0-75.0) Lymphocytes (%) (Auto) 20.0 % (20.0-45.0) Monocytes (%) (Auto) 7.0 % (1.0-10.0) Eosinophils (%) (Auto) 3.7 % (0.0-3.0) Basophils (%) (Auto) 1.1 % (0.0-2.0) Prothrombin Time 10.8 SEC (9.30-11.50) Prothromb Time International Ratio 1.0 (0.9-1.1) Activated Partial Thromboplast Time 27 SEC (23-33) Sodium Level 138 MMOL/L (136-145) Potassium Level 4.2 MMOL/L (3.5-5.1) Chloride Level 102 MMOL/L (98-107) Carbon Dioxide Level 26 MMOL/L (21-32) Anion Gap 10 mmol/L (5-15) Blood Urea Nitrogen 22 mg/dL (7-18) Creatinine 1.6 MG/DL (0.55-1.30) Estimat Glomerular Filtration Rate 53.3 mL/min (>60) Glucose Level 227 MG/DL (74-106) Calcium Level 10.6 MG/DL (8.5-10.1) Total Bilirubin 0.3 MG/DL (0.2-1.0) Aspartate Amino Transf (AST/SGOT) < 5 U/L (15-37) Alanine Aminotransferase (ALT/SGPT) 8 U/L (12-78) Alkaline Phosphatase 79 U/L (46-116) Troponin I 0.003 ng/mL (0.000-0.056) 0.011 ng/mL (0.000-0.056) Pro-B-Type Natriuretic Peptide 58 pg/mL (0-125) Total Protein 7.2 G/DL (6.4-8.2) Albumin 3.6 G/DL (3.4-5.0) Globulin 3.6 g/dL Albumin/Globulin Ratio 1.0 (1.0-2.7) Urine Color Pale yellow Urine Appearance Clear Urine pH 7 (4.5-8.0) Urine Specific [place] 1.015 (1.005-1.035) Urine Protein Negative (NEGATIVE) Urine Glucose (UA) Negative (NEGATIVE) Urine Ketones Negative (NEGATIVE) Urine Blood Negative (NEGATIVE) Urine Nitrite Negative (NEGATIVE) Urine Bilirubin Negative (NEGATIVE) Urine Urobilinogen Normal MG/DL (0.0-1.0) Urine Leukocyte Esterase Negative (NEGATIVE) Urine RBC 0 /HPF (0 - 0) Urine WBC 0-2 /HPF (0 - 0) Urine Squamous Epithelial Cells None /LPF (NONE/OCC) Urine Bacteria Occasional /HPF (NONE) Urine Random Sodium 89 mmol/L (20-110) Height (Feet): 5 Height (Inches): 8.00 Weight (Pounds): 204 Objective Physical Exam: Vitals: reviewed General: NAD HEENT: nc, at Neck: supple Chest: clear breath sounds bilaterally Cardiovascular: RRR, no s3, s4 Neuro: alert and oriented Adilson Gordon MD Dec 04, 2019 12:57
--- NOTE | 2019-12-04 13:14 | General Progress Note ---
Assessment/Plan Assessment/Plan: (1) ACS Chest pain (2) Cervical DDD (3) Cervical Spondylosis (4) Cervical Radiculopathy We will discontinue the Tramadol as per patients request. He will continue Tylenol as needed. D/w Dr. Arias and he concurred. Subjective Date patient seen: Dec 04, 2019 Time patient seen: 12:45 - pm Constitutional: Reports: no symptoms HEENT: Reports: no symptoms Cardiovascular: Reports: no symptoms Respiratory: Reports: no symptoms Gastrointestinal/Abdominal: Reports: no symptoms Genitourinary: Reports: no symptoms Neurologic/Psychiatric: Reports: no symptoms Endocrine: Reports: no symptoms Hematologic/Lymphatic: Reports: no symptoms Allergies: Coded Allergies: HYDROMORPHONE (Verified Allergy, Unknown, 09/02/19) Uncoded Allergies: CONTRAST DYE (Allergy, Unknown, 03/15/19) IODINE CONTRAST (Allergy, Unknown, 09/26/19) Subjective Patient is standing and walking around and showing no signs of pain or distress. He states that he had some dizziness this morning and feels it could be due to the tramadol, no longer wanting to take it. Objective Last 24 Hour Vital Signs Date Time Temp Pulse Resp B/P (MAP) Pulse Ox O2 Delivery O2 Flow Rate FiO2 12/04/19 12:00 97.9 64 18 109/55 (73) 95 12/04/19 09:00 Room Air 12/04/19 08:00 97.9 82 18 113/77 (89) 97 12/04/19 07:52 82 12/04/19 04:00 97.7 70 19 117/75 (89) 97 12/04/19 04:00 67 12/04/19 00:00 97.9 82 19 120/71 (87) 97 12/04/19 00:00 81 12/03/19 22:10 96.6 12/03/19 21:00 Room Air 12/03/19 20:00 97 12/03/19 20:00 97.7 76 19 113/65 (81) 97 12/03/19 16:00 79 12/03/19 16:00 96.6 69 20 104/59 (74) 97 Intake and Output 12/03/19 12/04/19 19:00 07:00 Intake Total 140 ml Output Total 1200 ml Balance -1060 ml Intake Oral 140 ml Output Urine Total 1200 ml # Voids 3 3 Laboratory Tests 12/03/19 15:30: Urine Color Pale yellow, Urine Appearance Clear, Urine pH 7, Urine Specific [place] 1.015, Urine Protein Negative, Urine Glucose (UA) Negative, Urine Ketones Negative, Urine Blood Negative, Urine Nitrite Negative, Urine Bilirubin Negative, Urine Urobilinogen Normal, Urine Leukocyte Esterase Negative, Urine RBC 0, Urine WBC 0-2, Urine Squamous Epithelial Cells None, Urine Bacteria Occasional, Urine Random Sodium 89 Height (Feet): 5 Height (Inches): 8.00 Weight (Pounds): 204 General Appearance: no apparent distress, alert EENT: PERRL/EOMI, normal ENT inspection Neck: non-tender, normal alignment Cardiovascular: normal rate, regular rhythm Respiratory/Chest: lungs clear, normal breath sounds Abdomen: non tender, soft Extremities: non-tender Edema: no edema noted Generalized Neurologic: alert, oriented x 3 Skin: normal pigmentation Hank Phan Dec 04, 2019 13:14
--- NOTE | 2019-12-07 10:20 | Discharge Summary ---
Discharge Summary Discharge Summary _ DATE OF ADMISSION: 12/03/2019 DATE OF DISCHARGE:V 12/04/2019 DISCHARGED BY: Dr. Maria REASON FOR ADMISSION: 64 years old male with past medical history of hypertension, history of [place] 2017 , pacemaker, COPD/asthma, history of PE, status post IVC filter, on chronic anticoagulation, diabetes mellitus type 2, presented with complaint of left- sided chest pain. He reported sudden onset, about an hour ago, of left-sided ,pressure-like, radiating to the left arm ,6 out of 10 ,chest pain. He denied shortness of breath. Upon evaluation patient was tachycardic with heart rate 114 , otherwise vital signs are stable. Laboratory work-up revealed no leukocytosis, hemoglobin 12.6, hematocrit 41.2, platelet count 253. Stable electrolytes . BUN 22, creatinine 1.6. Glucose 227. Stable LFT. Troponin 0.003, pro BNP 58. EKG revealed sinus rhythm with T wave inversion in lead III. Chest x-ray revealed evidence of pacemaker , but no evidence of acute cardiopulmonary pathology. Patient subsequently admitted to telemetry floor for further management. CONSULTANTS: store mgr Dr. Ross pulmonary Dr. Tamayo pain specialist Dr. Arias hedis specialist/oncologist Dr. Gordon [facility] COURSE: Serial troponin were negative. EKG revealed no acute ischemic changes. Patient was ruled out for acute myocardial infarction. Patient had multiple stress tests in the past, which were negative. Patient also had multiply VQ scans, that were negative as well. On this admission he refused stress test, which can be done as outpatient if patient agrees. Anticoagulation with Eliquis continued. Pacemaker was recently interrogated and showed normal functioning. Statin continued. Blood pressure remained stable without antihypertensive at this time. Pulse oximetry remained stable on room air. Chest pain was most likely musculoskeletal and responded to analgesics. Chest pain resolved . Blood sugar was managed with metformin. Patient was educated on diabetic, low-fat , low-cholesterol diet and adherence to medication regimen. Eye drops for glaucoma continued. Patient clinically stabilized and was ready for discharge. Due to rapid and unexpected improvement in patient condition , patient was discharged in 1 day. FINAL DIAGNOSES: Musculoskeletal chest pain Permanent pacemaker History of PE, status post embolectomy Chronic anticoagulation Diabetes mellitus Hyperlipidemia COPD History of hypertension Glaucoma Cervical DDD Cervical spondylosis Cervical radiculopathy DISCHARGE MEDICATIONS: See Medication Reconciliation list. DISCHARGE INSTRUCTIONS Patient was discharged home. Follow-up with a primary care provider in 1 week. I have been assigned to dictate discharge summary for this account. I was not involved in the patient's management. Angelica Prakash NP Dec 07, 2019 10:20
== END 2019-12-04 14:47 | disposition home or self-care (01) | DRG 313 ==
LOC: EMR 00:59 → 2E 01:47 → OBSVTOIN 01:47 → EDBEDREQ 02:19 → 2E 12-04 13:39
DX: R07.89 Other chest pain (principal); Z95.0 Presence of cardiac pacemaker; E11.9 Type 2 diabetes mellitus without complications; H40.9 Unspecified glaucoma; E78.5 Hyperlipidemia, unspecified; D63.8 Anemia in other chronic diseases classified elsewhere; Z86.711 Personal history of pulmonary embolism; Z79.01 Long term (current) use of anticoagulants; M06.9 Rheumatoid arthritis, unspecified; I10 Essential (primary) hypertension; J44.9 Chronic obstructive pulmonary disease, unspecified; Z88.6 Allergy status to analgesic agent; Z91.041 Radiographic dye allergy status; Z79.84 Long term (current) use of oral hypoglycemic drugs; M47.22 Other spondylosis with radiculopathy, cervical region; M50.10 Cervical disc disorder with radiculopathy, unspecified cervical region; I25.2 Old myocardial infarction
CPT/HCPCS: 36415; 71045; 80053; 81001; 83880; 84300; 84484; 85025; 85610; 85730; 87081; 93005; 99285

== ENCOUNTER 2020-01-11 08:44 | Observation (INO) | payer MEDICARE, MEDICAID ==
[~2020-01-11] VITALS: Ht 172.7 cm; Wt 90.7 kg
[2020-01-11 08:45] VITALS: BP 132/97
--- NOTE | 2020-01-11 09:00 | NUR ---
ED Nurse Note: Pt walked into ED for CP for 2 hours on L side of chest pain is pressure 6/10 pain. Pt is set up on monitor. EKG taken. Pt is alert and ox4, ambulatory.
--- NOTE | 2020-01-11 09:14 | Emergency Room Report ---
History of Present Illness General Chief Complaint: Chest Pain Source: Patient, Medical Record Present Illness HPI Patient is a 64-year-old male presents after increased left-sided chest pain. Patient had prior history of diabetes and recently had his metformin dose increased to 850 mg. Reports having sudden onset of pain. Prior history of DVT and pulmonary embolism. Previous had nuclear medicine testing performed and does not currently have primary care physician. Patient hospitalization at this hospital approximate 1 month ago. Denies any vomiting or fever. Reports having mild shortness of breath. Denies any cough. Denies any significant leg pain or swelling. Patient denies being hospitalized within the past 1 month. Patient's most recent echocardiogram at this facility showed preserved ejection fraction of 60% Allergies: Coded Allergies: HYDROMORPHONE (Verified Allergy, Unknown, 09/02/19) Uncoded Allergies: CONTRAST DYE (Allergy, Unknown, 03/15/19) IODINE CONTRAST (Allergy, Unknown, 09/26/19) COVID-19 Screening Contact w/high risk pt: No Recent Travel to affected area: No Experienced COVID-19 symptoms?: No COVID-19 symptoms experienced: Shortness of Breath COVID-19 Testing performed DRAFTER GEOLOGICAL: Yes COVID-19 Screening: Negative COVID-19 COVID-19 Testing Source: 01/08/20 Patient History Past Medical History: see triage record Past Surgical History: other - Sternotomy and thrombectomy Reviewed Nursing Documentation: PMH: Agreed; PSxH: Agreed Nursing Documentation-PMH Past Medical History: No History, Except For Hx Cardiac Problems: Yes - MD/2017, glaucoma surgery, PACEMAKER ON LEFT CHEST Hx Hypertension: Yes Hx Pacemaker: Yes Hx Asthma: No Hx COPD: Yes Hx Diabetes: Yes - DM II Hx Cancer: No Hx Gastrointestinal Problems: No Hx Dialysis: No Hx Neurological Problems: No Hx Cerebrovascular Accident: No Hx Seizures: No Hx Headaches: Yes Review of Systems All Other Systems: negative except mentioned in HPI Physical Exam Vital Signs Date Time Temp Pulse Resp B/P (MAP) Pulse Ox O2 Delivery O2 Flow Rate FiO2 01/11/20 08:52 98.4 83 20 125/77 (93) 98 Room Air Sp02 EP Interpretation: reviewed, normal General Appearance: normal inspection, well appearing, no apparent distress, alert, GCS 15, non-toxic Head: atraumatic ENT: normal ENT inspection, hearing grossly normal, normal voice Neck: normal inspection, full range of motion, supple, no bony tend Respiratory: normal inspection, lungs clear, normal breath sounds, no respiratory distress, no retraction, no wheezing Cardiovascular #1: regular rate, rhythm, no edema Gastrointestinal: normal inspection, normal bowel sounds, non tender, soft, no guarding, no hernia Genitourinary: no CVA tenderness Musculoskeletal: normal inspection, back normal, normal range of motion Neurologic: alert, motor strength/tone normal, director of retail analytics III-XII nml as tested, oriented x3, responsive, speech normal, normal inspection Psychiatric: normal inspection, judgement/insight normal, mood/affect normal Medical Decision Making Diagnostic Impression: Primary Impression: Acute coronary syndrome Additional Impression: Diabetes mellitus ER Course Patient presented for chest pain. Differential diagnosis include was not limited to acute myocardial infarction, pulmonary embolism, COPD exacerbation, esophageal spasm, among others. Because of complexity of patient's case laboratory tests and imaging studies were ordered. EKG interpreted by me showed normal sinus rhythm with a rate of [address] or T wave changes. This is unchanged compared to EKG from approximate 1 month prior. Patient was noted to have oxygen saturation 99% on room air. Patient was noted to be taking Eliquis due to prior history DVT.Patient does have some cardiac risk and cannot effectively be ruled out due to recent onset of symptoms. Dr. Chuck Russo was contacted for [employer] [facility] covering [facility] emergency department. Labs Test 01/11/20 09:49 White Blood Count 5.8 K/UL (4.8-10.8) Red Blood Count 4.31 M/UL (4.70-6.10) Hemoglobin 11.0 G/DL (14.2-18.0) Hematocrit 36.1 % (42.0-52.0) Mean Corpuscular Volume 84 FL (80-99) Mean Corpuscular Hemoglobin 25.6 PG (27.0-31.0) Mean Corpuscular Hemoglobin Concent 30.6 G/DL (32.0-36.0) Red Cell Distribution Width 16.2 % (11.6-14.8) Platelet Count 180 K/UL (150-450) Mean Platelet Volume 9.4 FL (6.5-10.1) Neutrophils (%) (Auto) 69.9 % (45.0-75.0) Lymphocytes (%) (Auto) 17.4 % (20.0-45.0) Monocytes (%) (Auto) 9.0 % (1.0-10.0) Eosinophils (%) (Auto) 2.6 % (0.0-3.0) Basophils (%) (Auto) 1.1 % (0.0-2.0) D-Dimer 0.36 mg/L FEU (0.00-0.49) Sodium Level 141 MMOL/L (136-145) Potassium Level 3.8 MMOL/L (3.5-5.1) Chloride Level 107 MMOL/L (98-107) Carbon Dioxide Level 25 MMOL/L (21-32) Anion Gap 9 mmol/L (5-15) Blood Urea Nitrogen 16 mg/dL (7-18) Creatinine 1.4 MG/DL (0.55-1.30) Estimat Glomerular Filtration Rate > 60 mL/min (>60) Glucose Level 166 MG/DL (74-106) Calcium Level 9.1 MG/DL (8.5-10.1) Total Bilirubin 0.3 MG/DL (0.2-1.0) Aspartate Amino Transf (AST/SGOT) 18 U/L (15-37) Alanine Aminotransferase (ALT/SGPT) 22 U/L (12-78) Alkaline Phosphatase 69 U/L (46-116) Troponin I 0.000 ng/mL (0.000-0.056) C-Reactive Protein, Quantitative < 0.4 mg/dL (0.00-0.90) Pro-B-Type Natriuretic Peptide 87 pg/mL (0-125) Total Protein 6.8 G/DL (6.4-8.2) Albumin 3.6 G/DL (3.4-5.0) Globulin 3.2 g/dL Albumin/Globulin Ratio 1.1 (1.0-2.7) Lipase 180 U/L (73-393) EKG Diagnostic Results Rate: normal Rhythm: NSR ST Segments: no acute changes Last Vital Signs Date Time Temp Pulse Resp B/P (MAP) Pulse Ox O2 Delivery O2 Flow Rate FiO2 01/11/20 08:52 98.4 83 20 125/77 (93) 98 Room Air Status: unchanged Disposition: ADMITTED INPATIENT Condition: Stable Rogelio King MD Jan 11, 2020 09:14
[2020-01-11] MEDS ORDERED: Aspirin Baby 81mg ORAL ONE (09:15)
--- NOTE | 2020-01-11 09:29 | Diagnostic Imaging Report ---
EXAM: XR Chest, 1 View CLINICAL HISTORY: CP TECHNIQUE: Frontal view of the chest. COMPARISON: 12/03/19 FINDINGS: Lungs: Unremarkable. No consolidation. Pleural space: Unremarkable. No pneumothorax. Heart: Unremarkable. No cardiomegaly. Mediastinum: Unremarkable. Bones/joints: Unremarkable. Tubes, lines and devices: There are left subclavian cardiac leads in good position. IMPRESSION: No acute findings in the chest.
--- NOTE | 2020-01-11 09:51 | NUR ---
ED Nurse Note: Collected blood specimen then sent.
[2020-01-11] MEDS ORDERED: HYDROcodone/Acetamin 5/325 tab ORAL ONE (10:15)
[2020-01-11 10:29] LABS: BASOPHILS % (AUTO) 1.1 % (0.0-2.0); EOSINOPHILS % (AUTO) 2.6 % (0.0-3.0); HEMATOCRIT 36.1 % (42.0-52.0); LYMPHOCYTES % (AUTO) 17.4 % (20.0-45.0); MEAN CORPUSCULAR VOLUME 84 FL (80-99); NEUTROPHILS % (AUTO) 69.9 % (45.0-75.0); PLATELET COUNT 180 K/UL (150-450); RED BLOOD COUNT 4.31 M/UL (4.70-6.10); RED CELL DISTRIBUTION WIDTH 16.2 % (11.6-14.8); WHITE BLOOD COUNT 5.8 K/UL (4.8-10.8)
[2020-01-11 10:42] LABS: ANION GAP 9 mmol/L (5-15); BLOOD UREA NITROGEN 16 mg/dL (7-18); CALCIUM 9.1 MG/DL (8.5-10.1); CARBON DIOXIDE 25 MMOL/L (21-32); CHLORIDE 107 MMOL/L (98-107); CREATININE 1.4 MG/DL (0.55-1.30); POTASSIUM 3.8 MMOL/L (3.5-5.1); SODIUM 141 MMOL/L (136-145)
[2020-01-11] MEDS ORDERED: Morphine Sulfate 4mg/ml Inj (IV USE ONLY) IVP ONE (10:45)
--- NOTE | 2020-01-11 10:52 | NUR ---
Note kristianfelisha in EDM - 01/11/20 at 1054 by [email or web address] ER DISCHARGE NOTE: Patient is cleared to be discharged per ERMD, pt is aox4, on room air, with stable vital signs. pt was given dc and prescription instructions, pt was able to verbalize understanding, pt id band removed. pt is able to ambulate with steady gait. pt took all belongings. Splint applied, all pulses present L arm.
[2020-01-11 10:53] LABS: ALANINE AMINOTRANSFERASE 22 U/L (12-78); ALBUMIN 3.6 G/DL (3.4-5.0); ALBUMIN/GLOBULIN RATIO 1.1 (1.0-2.7); ALKALINE PHOSPHATASE 69 U/L (46-116); ASPARTATE AMINO TRANSFERASE 18 U/L (15-37); BILIRUBIN,TOTAL 0.3 MG/DL (0.2-1.0)
[2020-01-11 12:00] VITALS: BP 132/70
[2020-01-11] MEDS ORDERED: Nitroglycerin Subl 0.4mg tab SL PRN (12:00)
--- NOTE | 2020-01-11 12:22 | NUR ---
ED Nurse Note: Report given to Elizabeth NAIR.
--- NOTE | 2020-01-11 12:23 | History and Physical ---
History of Present Illness General Date patient seen: Jan 11, 2020 Time patient seen: 12:19 Reason for Hospitalization: Chest Pain, rule out ACS high risk Present Illness HPI This is a 64 year old man with a history of WI in 2017, s/p pacemaker placement , COPD/asthma, PE s/p IVC filter on eliquis s/p thrombectomy, T2DM who presents with chest pain. Of note, he was just admitted 11/2019 also for chest pain. At that time, he was evaluated by Dr. Zayas, Cardiology, and Dr. Tamayo, Pulmonology. He was again offered stress testing, but refused. He has had multiple stress tests and V/Q scans in the past which have all been negative. His home medications were continued and it was felt that his chest pain was most likely musculoskeletal and he improved with analgesics. He was then discharged. Today, he presents with 1.5 hour duration of sharp left-sided chest pain. He says that this pain started suddenly when he was simply speaking to his friends. This radiated up to his left neck. This feels similar to prior episodes of chest pain except that this did not occur with exertion. This was associated with mild shortness of breath. He otherwise did not have fevers, chills, nausea, vomiting, palpitations, diaphoresis, leg swelling. He has been compliant with medications. He then presented to ED where he was afebrile and hemodynamically stable. His EKG was unchanged from prior and troponin negative. He was given pain control and admitted for ACS rule out. Allergies: Coded Allergies: HYDROMORPHONE (Verified Allergy, Unknown, 09/02/19) Uncoded Allergies: CONTRAST DYE (Allergy, Unknown, 03/15/19) IODINE CONTRAST (Allergy, Unknown, 09/26/19) COVID-19 Screening Contact w/high risk pt: No Recent Travel to affected area: No Experienced COVID-19 symptoms?: No COVID-19 symptoms experienced: Shortness of Breath Medication History Scheduled Apixaban (Eliquis), 5 MG PO BID, (Reported) Atorvastatin Calcium* (Lipitor*), 10 MG ORAL DAILY, (Reported) Brimonidine Tartrate* (Alphagan*), 2 DROP BOTH EYES BID, (Reported) Dorzolamide HCl/Timolol Maleat (Dorzolamide-Timolol Eye Drops), 1 DROP BOTH EYES TWICE A DAY, (Reported) Finasteride* (Proscar*), 5 MG ORAL DAILY, (Reported) Metformin Hcl* (Metformin Hcl*), 500 MG ORAL TWICE A DAY, (Reported) Tamsulosin Hcl (Tamsulosin Hcl*), 0.4 MG ORAL BEDTIME, (Reported) Travoprost (Benzalkonium) (Travatan 0.004% Eye Drop), 1 DROP BOTH EYES BEDTIME, (Reported) Medications Narrative has increased metformin to 850 mg bid Patient History Healthcare decision maker States his father is his decision maker Resuscitation status Advanced Directive on File Past Medical/Surgical History Past Medical/Surgical History: (1) History of pacemaker (2) COPD (chronic obstructive pulmonary disease) (3) DVT (deep venous thrombosis) (4) DDD (degenerative disc disease), lumbar (5) Hx pulmonary embolism (6) Lumbar spondylosis (7) Glaucoma (8) Chronic anticoagulation (9) HTN (hypertension) (10) Status post thoracotomy Family History Family History: Patient reports no known family medical history. Social History Social History: (1) Smoking history (2) Status post thoracotomy Review of Systems Constitutional: Denies: chills, sweats, fever Eye: Denies: eye pain, blurred vision, double vision ENT: Denies: ear discharge, nose pain, nose congestion, throat pain Respiratory: Reports: shortness of breath; Denies: cough, orthopnea Cardiovascular: Reports: chest pain; Denies: edema, palpitations Gastrointestinal: Denies: abdominal pain, nausea, vomiting Genitourinary: Denies: discharge, dysuria Musculoskeletal: Reports: back pain, joint pain Skin: Denies: rash Psychiatric: Reports: no symptoms Neurological: Reports: no symptoms Endocrine: Reports: no symptoms Hematologic/Lymphatic: Denies: easy bleeding, easy bruising All Other Systems: negative except mentioned in HPI Physical Exam General Appearance: WD/WN, no apparent distress, alert Lines, tubes and drains: peripheral HEENT: normocephalic, atraumatic, anicteric, PERRL Neck: non-tender, normal alignment, supple, normal inspection Respiratory/Chest: chest wall non-tender, lungs clear, normal breath sounds, no respiratory distress Cardiovascular/Chest: normal peripheral pulses, normal rate, regular rhythm, no gallop/murmur, no JVD Abdomen: normal bowel sounds, non tender, soft, no mass Extremities: no edema Skin Exam: normal pigmentation, warm/dry Neurologic: wheat buyer II-XII grossly normal, no motor/sensory deficits, alert, oriented x 3, responsive, normal mood/affect Last 24 Hour Vital Signs Date Time Temp Pulse Resp B/P (MAP) Pulse Ox O2 Delivery O2 Flow Rate FiO2 01/11/20 11:09 98.5 01/11/20 08:52 98.4 83 20 125/77 (93) 98 Room Air 01/11/20 08:45 86 16 Room Air 98 01/11/20 08:45 98.6 86 16 132/97 98 Room Air Laboratory Tests Test 01/11/20 09:49 White Blood Count 5.8 K/UL (4.8-10.8) Red Blood Count 4.31 M/UL (4.70-6.10) L Hemoglobin 11.0 G/DL (14.2-18.0) L Hematocrit 36.1 % (42.0-52.0) L Mean Corpuscular Volume 84 FL (80-99) Mean Corpuscular Hemoglobin 25.6 PG (27.0-31.0) L Mean Corpuscular Hemoglobin Concent 30.6 G/DL (32.0-36.0) L Red Cell Distribution Width 16.2 % (11.6-14.8) H Platelet Count 180 K/UL (150-450) Mean Platelet Volume 9.4 FL (6.5-10.1) Neutrophils (%) (Auto) 69.9 % (45.0-75.0) Lymphocytes (%) (Auto) 17.4 % (20.0-45.0) L Monocytes (%) (Auto) 9.0 % (1.0-10.0) Eosinophils (%) (Auto) 2.6 % (0.0-3.0) Basophils (%) (Auto) 1.1 % (0.0-2.0) D-Dimer 0.36 mg/L FEU (0.00-0.49) Sodium Level 141 MMOL/L (136-145) Potassium Level 3.8 MMOL/L (3.5-5.1) Chloride Level 107 MMOL/L (98-107) Carbon Dioxide Level 25 MMOL/L (21-32) Anion Gap 9 mmol/L (5-15) Blood Urea Nitrogen 16 mg/dL (7-18) Creatinine 1.4 MG/DL (0.55-1.30) H Estimat Glomerular Filtration Rate > 60 mL/min (>60) Glucose Level 166 MG/DL (74-106) H Calcium Level 9.1 MG/DL (8.5-10.1) Total Bilirubin 0.3 MG/DL (0.2-1.0) Aspartate Amino Transf (AST/SGOT) 18 U/L (15-37) Alanine Aminotransferase (ALT/SGPT) 22 U/L (12-78) Alkaline Phosphatase 69 U/L (46-116) Troponin I 0.000 ng/mL (0.000-0.056) C-Reactive Protein, Quantitative < 0.4 mg/dL (0.00-0.90) Pro-B-Type Natriuretic Peptide 87 pg/mL (0-125) Total Protein 6.8 G/DL (6.4-8.2) Albumin 3.6 G/DL (3.4-5.0) Globulin 3.2 g/dL Albumin/Globulin Ratio 1.1 (1.0-2.7) Lipase 180 U/L (73-393) Height (Feet): 5 Height (Inches): 8.00 Weight (Pounds): 201 Medications Current Medications Medications (Trade) Dose Ordered Sig/Kristan Route PRN Reason Start Time Stop Time Status Last Admin Dose Admin Acetaminophen (Tylenol) 650 mg Q4H PRN ORAL Mild Pain (Pain Scale 1-3) 01/11/20 12:00 02/10/20 11:59 Apixaban (Eliquis) 5 mg BID ORAL 01/11/20 18:00 04/10/20 17:59 Atorvastatin Calcium (Lipitor) 10 mg DAILY ORAL 01/12/20 09:00 04/11/20 08:59 Brimonidine Tartrate (Alphagan) 2 drop BID BOTH EYES 01/11/20 18:00 04/10/20 17:59 Dextrose (Dextrose 50%) 25 ml Q30M PRN IV Hypoglycemia 01/11/20 12:00 04/10/20 11:59 Dextrose (Dextrose 50%) 50 ml Q30M PRN IV Hypoglycemia 01/11/20 12:00 04/10/20 11:59 Dorzolamide/ Timolol (Cosopt) 1 drop TWICE A DAY BOTH EYES 01/11/20 18:00 02/10/20 17:59 Finasteride (Proscar) 5 mg DAILY ORAL 01/12/20 09:00 04/11/20 08:59 Nitroglycerin (Ntg) 0.4 mg Q5M X 3 DOSES PRN SL Prn Chest Pain 01/11/20 12:00 02/10/20 11:59 Tamsulosin HCl (Flomax) 0.4 mg BEDTIME ORAL 01/11/20 21:00 02/10/20 20:59 Assessment/Plan Problem List: (1) Chest pain ICD Codes: R07.9 - Chest pain, unspecified SNOMED: 95862707 (2) Diabetes mellitus ICD Codes: E11.9 - Type 2 diabetes mellitus without complications SNOMED: 79653280 (3) Hx pulmonary embolism ICD Codes: Z86.711 - Hx pulmonary embolism SNOMED: 283579654 (4) HTN (hypertension) ICD Codes: I10 - Essential (primary) hypertension SNOMED: 23842473 (5) Lumbar spondylosis ICD Codes: M47.9 - Lumbar spondylosis SNOMED: 080452181 (6) COPD (chronic obstructive pulmonary disease) ICD Codes: J44.9 - COPD (chronic obstructive pulmonary disease) SNOMED: 19575179 (7) DDD (degenerative disc disease), lumbar ICD Codes: M51.36 - DDD (degenerative disc disease), lumbar SNOMED: 95693578 (8) Smoking history ICD Codes: Z87.891 - Personal history of nicotine dependence SNOMED: 585205321 (9) DVT (deep venous thrombosis) ICD Codes: I82.409 - DVT (deep venous thrombosis) SNOMED: 130891704 (10) History of pacemaker ICD Codes: Z95.0 - Presence of cardiac pacemaker SNOMED: 250440126 (11) Glaucoma ICD Codes: H40.9 - Unspecified glaucoma SNOMED: 55248914 (12) Status post thoracotomy ICD Codes: Z98.89 - Status post thoracotomy SNOMED: 49584555 Status: stable Assessment/Plan: 64 years old male with history of prior WI, HTN, s/p pacemaker, COPD/asthma, history of PE s/p IVC filter on anticoagulation, T2DM, who presents with recurrent left sided chest pain. #Chronic Chest pain #History of WI #HLD #History of PE s/p IVC filter on anticoagulation - admitted multiples times for chest pain. Recently admitted 1 month ago where he refused stress test. His pain was thought to be musculoskeletal in nature. Initial EKG/troponin in ED reassuring from ACS standpoint. Doubt chronic or recurrent PE as he is on anticoagulation and no tachycardia/hypoxia. Could consider GI etiology as he reports improvement with certain liquids/foods and also post-surgical pain from prior sternotomy - trend troponin/EKG q8h - re-consult Cardiology who saw him during last admission - Hematology-Oncology Dr. Gordon, who saw patient prior, will be consulted - pain control with tylenol, judicious use of opioids. set expectation with patient that we would not likely be able to resolve his chest pain entirely by discharge, but that we would make sure he does not have a life threatening cause of his chest pain. 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 There is very low suspicion for PE, DVT recurrence. He can likely be discharged in < 48 hours after Cardiology evaluation I spent 77 minutes on this case, with > 50% of the time spent on face-face care with patient and counseling. I coordinated with Principal Clerk, Cardiology, Pulmonology, ED, and nursing Chuck Russo M.D. Jan 11, 2020 12:23
--- NOTE | 2020-01-11 12:48 | NUR ---
ED Nurse Note: Pt transferred to tele unit with all belongings. Pt on monitor. received by RN. No acute distress.
[2020-01-11] MEDS ORDERED: HYDROcodone/Acetamin 5/325 tab ORAL PRN (13:45)
[2020-01-11] MEDS ORDERED: traMADol 50mg tab ORAL PRN (14:15)
--- NOTE | 2020-01-11 14:17 | NUR ---
CASE MANAGEMENT:REVIEW 64 YR OLD MALE WALKED IN TO ER CC: CHEST PAIN RADIATING TO SIDE OF NECK PMH: PACEMAKER. COPD. DM SI: ACS. DM 98.5 83 20 125/77 98% ON RA H/H-11.0/36.1 CR+1.4 IS: NORCO PO ASA PO IV MORPHINE CHEST XRAY : TO TELEMETRY DCP: HOME
--- NOTE | 2020-01-11 14:43 | General Progress Note ---
Advance Care Planning Advance Care Planning Advance Care Planning [facility] An independent Hospitalist group, where every patient is our [facility] Internal Medicine Hospitalist Advanced Care Planning Note Please contact us at Date of Discussion: A [id number] discussion with the patient regarding the patient's advanced care planning took place during this hospitalization on the above date. The discussion included the explanation and discussion of advance directives and associated forms/documents, as well as the patient's current code status. We also discussed at length the patient's medical conditions (both acute and chronic), general prognosis, treatment options, and goals of care. The following summarizes the discussion: Advance Care Planning/Goals of Care: - Will attempt to fill out an AD and/or POLST with the patient prior to discharge, if not already completed - Continue current evaluation and management of any acute and chronic medical issues - Will continue to support the patient/family - Will continue to discuss both short- and long-term goals of care DPOA-HC/Surrogate Decision Maker: Father, when asked for contact information, he states "I already told you guys that" Code Status: Full Code with discussion of what this would specifically entail Advanced Care Planning Forms/Documents Completed: Deferred until later encounter/visit if patient more amenable A total of 32 minutes was spent on this discussion, including counseling, answering questions, and completing, if any, pertinent advanced care planning forms/documents. Time of note may not reflect time of encounter. Chuck Russo M.D. Jan 11, 2020 14:43
[2020-01-11 16:00] VITALS: BP 121/64
[2020-01-11] MEDS: Eliquis 5mg tablet ORAL SCH (17:22)
[2020-01-11] MEDS: Cosopt Opth Soln 10 mL Btl BOTH EYES SCH (17:23)
[2020-01-11] MEDS: Brimonidine 0.2% Opth Sol BOTH EYES SCH (17:24)
[2020-01-11] MEDS: Morphine Sulfate 2mg/ml Inj(IV/IM USE ONLY) IVP PRN (17:31)
--- NOTE | 2020-01-11 19:21 | NUR ---
HAND-OFF: Report given to JULIOCESAR Dai.
[2020-01-11 20:00] VITALS: BP 120/77
--- NOTE | 2020-01-11 20:00 | NUR ---
NURSE NOTES: RECEIVED PATIENT LYING IN BED, AWAKE, ORIENTED X4, VERBALLY RESPONSIVE, DENIES PAIN. NO SIGNS AND SYMPTOMS OF ACUTE CARDIO RESPIRATORY DISTRESS/SHORTNESS OF BREATH, DENIES CHEST PAIN, NO PERIPHERAL EDEMA NOTED, SINUS RHYTHM ON WASH OPERATOR. IV INTACT TO LEFT FOREARM/GAUGE 24 SALINE LOCK. NO COMPLAINT OF GI DISCOMFORT, BATHROOM PRIVILEGES, NO N/V/D. SIDE RAILS UP X2 FOR MOBILITY, BED IN LOWEST POSITION FOR SAFETY, ENCOURAGED PATIENT TO UTILIZE CALL LIGHT FOR ASSISTANCE, VERBALIZED UNDERSTANDING. NAD.
[2020-01-11] MEDS ORDERED: Latanoprost 0.005% Opth 2.5ml Soln BOTH EYES SCH (21:00)
[2020-01-11] MEDS: Tamsulosin 0.4mg cap ORAL SCH (21:19)
[2020-01-12] VITALS: BP 116/69
--- NOTE | 2020-01-12 02:19 | NUR ---
NURSE NOTES: RESTING WELL, NAD.
[2020-01-12 04:00] VITALS: BP 124/73
[2020-01-12] MEDS: Morphine Sulfate 2mg/ml Inj(IV/IM USE ONLY) IVP PRN ×2 (04:36→17:56)
--- NOTE | 2020-01-12 06:26 | NUR ---
NURSE NOTES: RESTED WELL, NO SIGNIFICANT CHANGE OF CONDITION NOTED THROUGHOUT THE NIGHT. SAFETY MAINTAINED. NAD.
--- NOTE | 2020-01-12 07:30 | NUR ---
NURSE NOTES: Received patient in bed. Awake, A/O x4. On room air, respirations unlabored. Heart monitor in place. IV in the Left forearm, site intact. Patient denies pain at this time. Side rails up x2, bed low and locked.
[2020-01-12 08:00] VITALS: BP 130/77
--- NOTE | 2020-01-12 08:16 | Cardiac Electrophysiology PN ---
Subjective Subjective [id number] Objective Last 24 Hour Vital Signs Date Time Temp Pulse Resp B/P (MAP) Pulse Ox O2 Delivery O2 Flow Rate FiO2 01/12/20 05:06 97.1 01/12/20 04:00 97.5 66 18 124/73 (90) 97 01/12/20 03:29 67 01/12/20 00:00 97.1 63 18 116/69 (85) 96 01/11/20 23:31 62 01/11/20 21:00 Room Air 01/11/20 20:04 71 01/11/20 20:00 96.9 67 18 120/77 (91) 97 01/11/20 16:00 97.7 79 18 121/64 (83) 99 01/11/20 16:00 76 01/11/20 13:00 91 01/11/20 12:58 Room Air 01/11/20 12:49 98.5 81 16 127/68 99 Room Air 01/11/20 12:00 98.5 84 18 132/70 100 Room Air 01/11/20 11:09 98.5 01/11/20 08:52 98.4 83 20 125/77 (93) 98 Room Air 01/11/20 08:45 86 16 Room Air 98 01/11/20 08:45 98.6 86 16 132/97 98 Room Air Intake and Output 01/11/20 01/12/20 19:00 07:00 Intake Total 0 ml 880 ml Balance 0 ml 880 ml Intake Oral 0 ml 880 ml # Voids 2 2 # Bowel Movements 1 Laboratory Tests Test 01/11/20 09:49 01/11/20 19:50 White Blood Count 5.8 K/UL (4.8-10.8) Red Blood Count 4.31 M/UL (4.70-6.10) L Hemoglobin 11.0 G/DL (14.2-18.0) L Hematocrit 36.1 % (42.0-52.0) L Mean Corpuscular Volume 84 FL (80-99) Mean Corpuscular Hemoglobin 25.6 PG (27.0-31.0) L Mean Corpuscular Hemoglobin Concent 30.6 G/DL (32.0-36.0) L Red Cell Distribution Width 16.2 % (11.6-14.8) H Platelet Count 180 K/UL (150-450) Mean Platelet Volume 9.4 FL (6.5-10.1) Neutrophils (%) (Auto) 69.9 % (45.0-75.0) Lymphocytes (%) (Auto) 17.4 % (20.0-45.0) L Monocytes (%) (Auto) 9.0 % (1.0-10.0) Eosinophils (%) (Auto) 2.6 % (0.0-3.0) Basophils (%) (Auto) 1.1 % (0.0-2.0) D-Dimer 0.36 mg/L FEU (0.00-0.49) Sodium Level 141 MMOL/L (136-145) Potassium Level 3.8 MMOL/L (3.5-5.1) Chloride Level 107 MMOL/L (98-107) Carbon Dioxide Level 25 MMOL/L (21-32) Anion Gap 9 mmol/L (5-15) Blood Urea Nitrogen 16 mg/dL (7-18) Creatinine 1.4 MG/DL (0.55-1.30) H Estimat Glomerular Filtration Rate > 60 mL/min (>60) Glucose Level 166 MG/DL (74-106) H Calcium Level 9.1 MG/DL (8.5-10.1) Total Bilirubin 0.3 MG/DL (0.2-1.0) Aspartate Amino Transf (AST/SGOT) 18 U/L (15-37) Alanine Aminotransferase (ALT/SGPT) 22 U/L (12-78) Alkaline Phosphatase 69 U/L (46-116) Troponin I 0.000 ng/mL (0.000-0.056) 0.000 ng/mL (0.000-0.056) C-Reactive Protein, Quantitative < 0.4 mg/dL (0.00-0.90) Pro-B-Type Natriuretic Peptide 87 pg/mL (0-125) Total Protein 6.8 G/DL (6.4-8.2) Albumin 3.6 G/DL (3.4-5.0) Globulin 3.2 g/dL Albumin/Globulin Ratio 1.1 (1.0-2.7) Lipase 180 U/L (73-393) Gato Zayas MD Jan 12, 2020 08:16
--- NOTE | 2020-01-12 08:57 | General Progress Note ---
Assessment/Plan Problem List: (1) Chest pain ICD Codes: R07.9 - Chest pain, unspecified SNOMED: 15650483 (2) Diabetes mellitus ICD Codes: E11.9 - Type 2 diabetes mellitus without complications SNOMED: 04642109 (3) Hx pulmonary embolism ICD Codes: Z86.711 - Hx pulmonary embolism SNOMED: 910908995 (4) HTN (hypertension) ICD Codes: I10 - Essential (primary) hypertension SNOMED: 98459679 (5) Lumbar spondylosis ICD Codes: M47.9 - Lumbar spondylosis SNOMED: 141882945 (6) COPD (chronic obstructive pulmonary disease) ICD Codes: J44.9 - COPD (chronic obstructive pulmonary disease) SNOMED: 66372857 (7) DDD (degenerative disc disease), lumbar ICD Codes: M51.36 - DDD (degenerative disc disease), lumbar SNOMED: 09110505 (8) Smoking history ICD Codes: Z87.891 - Personal history of nicotine dependence SNOMED: 737765108 (9) DVT (deep venous thrombosis) ICD Codes: I82.409 - DVT (deep venous thrombosis) SNOMED: 384728121 (10) History of pacemaker ICD Codes: Z95.0 - Presence of cardiac pacemaker SNOMED: 420000091 (11) Glaucoma ICD Codes: H40.9 - Unspecified glaucoma SNOMED: 80433246 (12) Status post thoracotomy ICD Codes: Z98.89 - Status post thoracotomy SNOMED: 65349805 Status: stable Assessment/Plan: 64 years old male with history of prior [place], HTN, s/p pacemaker, COPD/asthma, history of PE s/p IVC filter on anticoagulation, T2DM, who presents with recurrent left sided chest pain, admitted for ACS rule out #Chronic Chest pain #History of [place] #HLD #History of PE s/p IVC filter on anticoagulation - admitted multiples times for chest pain. Recently admitted 1 month ago where he refused stress test. His pain was thought to be musculoskeletal in nature. Initial EKG/troponin in ED reassuring from ACS standpoint. Doubt chronic or recurrent PE as he is on anticoagulation and no tachycardia/hypoxia. Could consider GI etiology as he reports improvement with certain liquids/foods and also post-surgical pain from prior sternotomy - trend troponin/EKG q8h, will discontinue once negative x 3 - re-consult Cardiology who saw him during last admission Dr. Zayas, recommending cardiac stress test which is ordered - Hematology-Oncology Dr. Gordon, who saw patient prior, will follow for PE management - pain control with tylenol, judicious use of opioids. set expectation with patient that we would not likely be able to resolve his chest pain entirely by discharge, but that we would make sure he does not have a life threatening cause of his chest pain. 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 Told today that he would likely leave today or tomorrow following stress testing if normal and he agreed - continue home lipitor - continue home eliquis #COPD/asthma: no evidence of exacerbation at this time - continue monitoring #T2DM - continue home metformin 850 mg BID #Glaucoma- continue home eye drops #BPH - continue home flomax/finasteride #FEN/GI - cardiac diet - no DVT prophylaxis as on eliquis #Dispo: Pending stress test, will discharge today or tomorrow. If he refuses test again he will be discharged and follow up with PCP for further management of chronic chest pain I spent 38 minutes on this case, with > 50% of the time spent on face-face care with patient and counseling. I coordinated with Working Supervisor, Cardiology, and nursing Subjective Date patient seen: Jan 12, 2020 Time patient seen: 08:54 Constitutional: Denies: chills, fever HEENT: Denies: eye pain, blurred vision Cardiovascular: Reports: chest pain; Denies: lightheadedness, palpitations, syncope Respiratory: Denies: cough, orthopnea, shortness of breath Gastrointestinal/Abdominal: Denies: abdomen distended, nausea, vomiting Genitourinary: Denies: discharge, frequency Neurologic/Psychiatric: Denies: headache Endocrine: Denies: intolerance to cold, intolerance to heat Hematologic/Lymphatic: Denies: easy bleeding, easy bruising Allergies: Coded Allergies: HYDROMORPHONE (Verified Allergy, Unknown, 09/02/19) Uncoded Allergies: CONTRAST DYE (Allergy, Unknown, 03/15/19) IODINE CONTRAST (Allergy, Unknown, 09/26/19) All Systems: reviewed and negative except above Subjective EKG unchanged overnight and troponin remains negative. patient reports unchanged left sided chest pain, which does improve with PRN pain medications Objective Last 24 Hour Vital Signs Date Time Temp Pulse Resp B/P (MAP) Pulse Ox O2 Delivery O2 Flow Rate FiO2 01/12/20 08:32 Room Air 01/12/20 08:00 97.0 77 18 130/77 (94) 99 01/12/20 05:06 97.1 01/12/20 04:00 97.5 66 18 124/73 (90) 97 01/12/20 03:29 67 01/12/20 00:00 97.1 63 18 116/69 (85) 96 01/11/20 23:31 62 01/11/20 21:00 Room Air 01/11/20 20:04 71 01/11/20 20:00 96.9 67 18 120/77 (91) 97 01/11/20 16:00 97.7 79 18 121/64 (83) 99 01/11/20 16:00 76 01/11/20 13:00 91 01/11/20 12:58 Room Air 01/11/20 12:49 98.5 81 16 127/68 99 Room Air 01/11/20 12:00 98.5 84 18 132/70 100 Room Air 01/11/20 11:09 98.5 Intake and Output 01/11/20 01/12/20 19:00 07:00 Intake Total 0 ml 880 ml Balance 0 ml 880 ml Intake Oral 0 ml 880 ml # Voids 2 2 # Bowel Movements 1 Laboratory Tests 01/11/20 09:49: White Blood Count 5.8, Red Blood Count 4.31L, Hemoglobin 11.0L, Hematocrit 36.1L , Mean Corpuscular Volume 84, Mean Corpuscular Hemoglobin 25.6L, Mean Corpuscular Hemoglobin Concent 30.6L, Red Cell Distribution Width 16.2H, Platelet Count 180, Mean Platelet Volume 9.4, Neutrophils (%) (Auto) 69.9, Lymphocytes (%) (Auto) 17.4L, Monocytes (%) (Auto) 9.0, Eosinophils (%) (Auto) 2.6, Basophils (%) (Auto) 1.1, D-Dimer 0.36, Sodium Level 141, Potassium Level 3.8, Chloride Level 107, Carbon Dioxide Level 25, Anion Gap 9, Blood Urea Nitrogen 16, Creatinine 1.4H, Estimat Glomerular Filtration Rate > 60, Glucose Level 166H, Calcium Level 9.1, Total Bilirubin 0.3, Aspartate Amino Transf (AST/ SGOT) 18, Alanine Aminotransferase (ALT/SGPT) 22, Alkaline Phosphatase 69, Troponin I 0.000, C-Reactive Protein, Quantitative < 0.4, Pro-B-Type Natriuretic Peptide 87, Total Protein 6.8, Albumin 3.6, Globulin 3.2, Albumin/ Globulin Ratio 1.1, Lipase 180 01/11/20 19:50: Troponin I 0.000 Height (Feet): 5 Height (Inches): 8.00 Weight (Pounds): 200 General Appearance: WD/WN, no apparent distress, alert EENT: PERRL/EOMI, normal ENT inspection, pharynx normal Neck: non-tender, normal alignment, supple Cardiovascular: normal peripheral pulses, normal rate, regular rhythm, regularly irregular, no JVD Respiratory/Chest: lungs clear, normal breath sounds, no respiratory distress Abdomen: normal bowel sounds, non tender, soft Pelvis: no active bleeding Extremities: normal range of motion, no calf tenderness Edema: no edema noted Arm (L), no edema noted Arm (R), no edema noted Leg (L), no edema noted Leg (R), no edema noted Pedal (L), no edema noted Pedal (R) Neurologic: no motor/sensory deficits, alert, oriented x 3 Skin: normal pigmentation Chuck Russo M.D. Jan 12, 2020 08:57
[2020-01-12 09:02] LABS: BASOPHILS % (AUTO) 0.5 % (0.0-2.0); HEMATOCRIT 36.5 % (42.0-52.0); HEMOGLOBIN 11.2 G/DL (14.2-18.0); LYMPHOCYTES % (AUTO) 18.7 % (20.0-45.0); MEAN CORPUSCULAR VOLUME 84 FL (80-99); MONOCYTES % (AUTO) 9.2 % (1.0-10.0); NEUTROPHILS % (AUTO) 69.5 % (45.0-75.0); PLATELET COUNT 177 K/UL (150-450); RED BLOOD COUNT 4.36 M/UL (4.70-6.10); RED CELL DISTRIBUTION WIDTH 16.5 % (11.6-14.8); WHITE BLOOD COUNT 7.5 K/UL (4.8-10.8)
[2020-01-12] MEDS: Eliquis 5mg tablet ORAL SCH ×2 (09:05→17:55)
[2020-01-12] MEDS: Cosopt Opth Soln 10 mL Btl BOTH EYES SCH ×2 (09:05→17:55)
[2020-01-12] MEDS: Brimonidine 0.2% Opth Sol BOTH EYES SCH ×2 (09:06→17:55)
--- NOTE | 2020-01-12 09:14 | NUR ---
NURSE NOTES: Patient is asking about night time Travatan eye drops. Dr. Russo informed. Doctor will f/u with pharmacy.
[2020-01-12 09:53] LABS: ALANINE AMINOTRANSFERASE 23 U/L (12-78); ALBUMIN 3.6 G/DL (3.4-5.0); ALBUMIN/GLOBULIN RATIO 1.2 (1.0-2.7); ALKALINE PHOSPHATASE 66 U/L (46-116); ANION GAP 9 mmol/L (5-15); ASPARTATE AMINO TRANSFERASE 15 U/L (15-37); BILIRUBIN,TOTAL 0.4 MG/DL (0.2-1.0); BLOOD UREA NITROGEN 13 mg/dL (7-18); CALCIUM 9.1 MG/DL (8.5-10.1); CARBON DIOXIDE 24 MMOL/L (21-32); CHLORIDE 107 MMOL/L (98-107); CHOLESTEROL 133 MG/DL (< 200); CREATININE 1.3 MG/DL (0.55-1.30); HDL CHOLESTEROL 37 MG/DL (40-60); POTASSIUM 4.4 MMOL/L (3.5-5.1); SODIUM 140 MMOL/L (136-145); TRIGLYCERIDES 130 MG/DL (30-150)
--- NOTE | 2020-01-12 10:15 | Consultation ---
DATE OF CONSULTATION: 01/12/2020 CARDIOLOGY CONSULTATION CONSULTING PHYSICIAN: Gato Zayas MD. REASON FOR CONSULTATION: Chest pain in a patient with history of pulmonary embolism as well as evaluation of patient's pacemaker. HISTORY OF PRESENT ILLNESS: Patient is a 64-year-old gentleman that I am quite familiar from multiple previous hospitalizations. Patient has history of hypertension and pulmonary embolus status post pulmonary embolectomy many years ago as well as diabetes and glaucoma, who also had numerous admissions for chest pain since then. Patient has refused stress tests on multiple occasions, but then where he agreed nonischemic. The patient was also admitted in November for high-grade chest pain and was evaluated by me and a stress test was recommended, but again he refused a stress test. Patient has had multiple V/Q scans that have been negative. Patient presented to the emergency room 0.5 hour of sharp left-sided chest pain, again that he says it was different than before while speaking to his friend. Patient's pain radiated to his neck. Patient was admitted and a Cardiology consultation was obtained for further evaluation. It is of note that patient's EKG was completely normal. REVIEW OF SYSTEMS: Negative other than what is mentioned in the history of present illness. PAST MEDICAL HISTORY: As mentioned above. FAMILY HISTORY: Noncontributory. SOCIAL HISTORY: He lives at home. Does not smoke or drink alcohol. PHYSICAL EXAMINATION: VITAL SIGNS: Blood pressure 140/80, pulse is 80, respirations 18, and he is afebrile. HEAD AND NECK: Showed no JVD or carotid bruits. LUNGS: Clear. CARDIOVASCULAR: Shows regular S1 and S2 with no gallop or murmur. ABDOMEN: Soft. EXTREMITIES: No pitting edema. LABORATORY AND DIAGNOSTIC DATA: His labs show white count of 5.8, hemoglobin 11, hematocrit 36.1, and platelet count of 180. Sodium is 141, potassium 3.8, BUN of 60, creatinine 1.4, and glucose of 166. Troponins are negative x4. His urine toxicology screen also negative. ASSESSMENT AND PLAN: 1. Chest pain. Patient was ruled out for myocardial infarction again. His EKG is completely normal, nonischemic. Patient has had many previous hospitalizations and has refused multiple stress tests. I will reschedule the patient for stress test again. 2. History of pulmonary embolism, status post open pulmonary embolectomy. Continue Eliquis. 3. Status post [facility] permanent pacemaker interrogation. Interrogated in last admission with normal function. 4. Hyperlipidemia, on Lipitor. 5. Glaucoma. 6. Benign prostatic hypertrophy. Thank you very much for allowing me to participate in the care of this patient. Please do not hesitate to contact me for any questions regarding my evaluation. Gato Zayas M.D. DR: RAKESH JOB#: [id number] CC:
--- NOTE | 2020-01-12 10:25 | NUR ---
NURSE NOTES: Pharmacy contacted regarding patient's own night time eye drops. Patient states he just filled prescription one month ago. Patient gave address [address], [place]. Spoke with
--- NOTE | 2020-01-12 11:35 | Consultation ---
History of Present Illness General Chief Complaint: Chest Pain Present Illness Allergies: Coded Allergies: HYDROMORPHONE (Verified Allergy, Unknown, 09/02/19) Uncoded Allergies: CONTRAST DYE (Allergy, Unknown, 03/15/19) IODINE CONTRAST (Allergy, Unknown, 09/26/19) Medication History Scheduled Apixaban (Eliquis), 5 MG PO BID, (Reported) Atorvastatin Calcium* (Lipitor*), 10 MG ORAL DAILY, (Reported) Brimonidine Tartrate* (Alphagan*), 2 DROP BOTH EYES BID, (Reported) Dorzolamide HCl/Timolol Maleat (Dorzolamide-Timolol Eye Drops), 1 DROP BOTH EYES TWICE A DAY, (Reported) Finasteride* (Proscar*), 5 MG ORAL DAILY, (Reported) Metformin Hcl* (Metformin Hcl*), 500 MG ORAL TWICE A DAY, (Reported) Tamsulosin Hcl (Tamsulosin Hcl*), 0.4 MG ORAL BEDTIME, (Reported) Travoprost (Benzalkonium) (Travatan 0.004% Eye Drop), 1 DROP BOTH EYES BEDTIME, (Reported) Patient History Healthcare decision maker N Resuscitation status Advanced Directive on File Physical Exam Last 24 Hour Vital Signs Date Time Temp Pulse Resp B/P (MAP) Pulse Ox O2 Delivery O2 Flow Rate FiO2 01/12/20 08:32 Room Air 01/12/20 08:00 97.0 77 18 130/77 (94) 99 01/12/20 08:00 103 01/12/20 05:06 97.1 01/12/20 04:00 97.5 66 18 124/73 (90) 97 01/12/20 03:29 67 01/12/20 00:00 97.1 63 18 116/69 (85) 96 01/11/20 23:31 62 01/11/20 21:00 Room Air 01/11/20 20:04 71 01/11/20 20:00 96.9 67 18 120/77 (91) 97 01/11/20 16:00 97.7 79 18 121/64 (83) 99 01/11/20 16:00 76 01/11/20 13:00 91 01/11/20 12:58 Room Air 01/11/20 12:49 98.5 81 16 127/68 99 Room Air 01/11/20 12:00 98.5 84 18 132/70 100 Room Air Intake and Output 01/11/20 01/12/20 19:00 07:00 Intake Total 0 ml 880 ml Balance 0 ml 880 ml Intake Oral 0 ml 880 ml # Voids 2 2 # Bowel Movements 1 Laboratory Tests Test 01/11/20 19:50 01/12/20 08:25 Troponin I 0.000 ng/mL (0.000-0.056) 0.000 ng/mL (0.000-0.056) White Blood Count 7.5 K/UL (4.8-10.8) Red Blood Count 4.36 M/UL (4.70-6.10) L Hemoglobin 11.2 G/DL (14.2-18.0) L Hematocrit 36.5 % (42.0-52.0) L Mean Corpuscular Volume 84 FL (80-99) Mean Corpuscular Hemoglobin 25.6 PG (27.0-31.0) L Mean Corpuscular Hemoglobin Concent 30.6 G/DL (32.0-36.0) L Red Cell Distribution Width 16.5 % (11.6-14.8) H Platelet Count 177 K/UL (150-450) Mean Platelet Volume 11.2 FL (6.5-10.1) H Neutrophils (%) (Auto) 69.5 % (45.0-75.0) Lymphocytes (%) (Auto) 18.7 % (20.0-45.0) L Monocytes (%) (Auto) 9.2 % (1.0-10.0) Eosinophils (%) (Auto) 2.0 % (0.0-3.0) Basophils (%) (Auto) 0.5 % (0.0-2.0) Sodium Level 140 MMOL/L (136-145) Potassium Level 4.4 MMOL/L (3.5-5.1) Chloride Level 107 MMOL/L (98-107) Carbon Dioxide Level 24 MMOL/L (21-32) Anion Gap 9 mmol/L (5-15) Blood Urea Nitrogen 13 mg/dL (7-18) Creatinine 1.3 MG/DL (0.55-1.30) Estimat Glomerular Filtration Rate > 60 mL/min (>60) Glucose Level 141 MG/DL (74-106) H Hemoglobin A1c 7.7 % (4.3-6.0) H Calcium Level 9.1 MG/DL (8.5-10.1) Total Bilirubin 0.4 MG/DL (0.2-1.0) Aspartate Amino Transf (AST/SGOT) 15 U/L (15-37) Alanine Aminotransferase (ALT/SGPT) 23 U/L (12-78) Alkaline Phosphatase 66 U/L (46-116) Pro-B-Type Natriuretic Peptide 126 pg/mL (0-125) H Total Protein 6.5 G/DL (6.4-8.2) Albumin 3.6 G/DL (3.4-5.0) Globulin 2.9 g/dL Albumin/Globulin Ratio 1.2 (1.0-2.7) Triglycerides Level 130 MG/DL (30-150) Cholesterol Level 133 MG/DL (< 200) LDL Cholesterol 65 mg/dL (<100) HDL Cholesterol 37 MG/DL (40-60) L Cholesterol/HDL Ratio 3.6 (3.3-4.4) Thyroid Stimulating Hormone (TSH) 1.584 uiU/mL (0.358-3.740) Height (Feet): 5 Height (Inches): 8.00 Weight (Pounds): 200 Medications Current Medications Medications (Trade) Dose Ordered Sig/Kristan Route PRN Reason Start Time Stop Time Status Last Admin Dose Admin Acetaminophen (Tylenol) 650 mg Q4H PRN ORAL Mild Pain (Pain Scale 1-3) 01/11/20 12:00 02/10/20 11:59 Acetaminophen (Tylenol) 650 mg Q6H PRN ORAL For Headache 01/11/20 13:45 02/10/20 13:44 Apixaban (Eliquis) 5 mg BID ORAL 01/11/20 18:00 04/10/20 17:59 01/12/20 09:05 Atorvastatin Calcium (Lipitor) 10 mg DAILY ORAL 01/12/20 09:00 04/11/20 08:59 01/12/20 09:05 Brimonidine Tartrate (Alphagan) 2 drop BID BOTH EYES 01/11/20 18:00 04/10/20 17:59 01/12/20 09:06 Dextrose (Dextrose 50%) 25 ml Q30M PRN IV Hypoglycemia 01/11/20 12:00 10/24/20 11:59 Dextrose (Dextrose 50%) 50 ml Q30M PRN IV Hypoglycemia 01/11/20 12:00 04/10/20 11:59 Dorzolamide/ Timolol (Cosopt) 1 drop TWICE A DAY BOTH EYES 01/11/20 18:00 02/10/20 17:59 01/12/20 09:05 Finasteride (Proscar) 5 mg DAILY ORAL 01/12/20 09:00 04/11/20 08:59 01/12/20 09:06 Morphine Sulfate (Morphine Sulfate) 2 mg Q8HR PRN IVP severe pain 01/11/20 14:15 01/18/20 14:14 01/12/20 04:36 Nitroglycerin (Ntg) 0.4 mg Q5M X 3 DOSES PRN SL Prn Chest Pain 01/11/20 12:00 02/10/20 11:59 Patient Own Medication (Patient's Own Med) 1 ea QHS BOTH EYES 01/12/20 21:00 02/11/20 20:59 Regadenoson (Lexiscan) 0.4 mg ONCE IV 01/12/20 08:30 01/14/20 08:29 Tamsulosin HCl (Flomax) 0.4 mg BEDTIME ORAL 01/11/20 21:00 02/10/20 20:59 01/11/20 21:19 Tramadol HCl (Ultram) 50 mg Q6H PRN ORAL moderate pain 01/11/20 14:15 01/18/20 14:14 Assessment/Plan Assessment/Plan: Hematology Consultation DAVID RUIZ: Mariangel Kruger RFC: PE and ivc filter hx DOS: 01/12/2020 ID 64-year-old male with history of CHF, PE, and pacemaker here complaining of few hours of sudden onset of left-sided chest pain without radiation. Reports that the pain started as he was resting. Denies any exertion. Patient has been [facility] multiple times for chest pain, is requesting to be admitted. Patient keeps calling primary doctor and stating that she is not getting. Blood draw had to be done by the high school guidance counselor from the laboratories patient is a hard stick. Denies any dizziness and headache at this time. Patient is currently on Eliquis. Last VQ scan was done April 2019 and within normal limits. Patient was evaluated by , air traffic control specialist center when was admitted to [facility] a few months ago and was cleared. Sitting comfortably with stable vital signs. No unilateral or generalized weakness noted. Neurovascularly intact. Denies abdominal pain, nausea vomiting, cough and congestion. I have seen him many times in the past, also at [facility], is well known to me, is currently on eliquis bid dosing, he has a history of major noncompliance with care Allergies: HYDROMORPHONE (Verified Allergy, Unknown, 09/02/19) Uncoded Allergies: CONTRAST DYE (Allergy, Unknown, 03/15/19) IODINE CONTRAST (Allergy, Unknown, 09/26/19) COVID-19 Screening Contact w/high risk pt: No Recent Travel to affected area: No Experienced COVID-19 symptoms?: Yes COVID-19 symptoms experienced: Shortness of Breath Patient History Past Medical History: see triage record Past Surgical History: none Pertinent Family History: none Immunizations: UTD Reviewed Nursing Documentation: PMH: Agreed; PSxH: Agreed Nursing Documentation-PMH Hx Cardiac Problems: Yes - OK/2017, glaucoma Hx Hypertension: Yes Hx Pacemaker: Yes Hx Asthma: No Hx COPD: Yes Hx Diabetes: Yes Hx Cancer: No Hx Gastrointestinal Problems: No Hx Dialysis: No Hx Neurological Problems: No Hx Cerebrovascular Accident: No Hx Seizures: No ROS (review of systems): Constitutional: No fever, no chills, no night sweats, no fatigue Skin: No rashes, lumps, itchiness, dryness HEENT: No CRUZ, ear ache, visual changes, double vision, nosebleeds Breasts: No lumps, pain, discharge Pulmonary: No cough, sputum, shortness of breath, coughing up blood Cardiovascular: No chest pain, tightness, palpitations, syncope, PND GI: No nausea, vomiting, diarrhea, melena, hematochezia, change in appetite, : No dysuria, frequency, urgency, urinary incontinence, foamy urine Musculoskeletal: No joint swelling or muscle pain, trauma, back pain Neurologic: No dizziness, fainting, seizures, changes in smell or taste Psychiatric: No nervousness, stress, or depression, anxiety, hallucinations Endocrine: No weight change, heat or cold intolerance, tremor, insomnia Physical Exam: Vitals: reviewed General: NAD HEENT: nc, at Neck: supple Chest: clear breath sounds bilaterally Cardiovascular: RRR, no s3, s4 Neuro: alert and oriented Labs noted Imaging: in emr Assessment and Recs # Pulmonary embolism, status post open embolectomy history. The patient has multiple V/Q scan had been negative. Most recent one in April 2019 at [facility] was also negative. --> He is on Eliquis 5 mg b.i.d. --> continue at current dosing -> is s/p ivc filter as well --> no bleeding at this time # Anemia of chronic disease --> trend h/h as needed --> currently is stable # Atypical chest pain and History of permanent pacemaker. --> in past refused stress test, to get stress treadmill test --> per Dr. Zayas # S/P [facility] pacer that was interrogated recently and showed Nl Fx # Hyperlipidemia, on Lipitor. # Diabetes, on metformin.tus post embolectomy. # RA # OK 2017 # Dvt ppx kindra GRAHAM RN and appreciate consultation Adilson Gordon MD Jan 12, 2020 11:35
[2020-01-12 12:00] VITALS: BP 114/68
--- NOTE | 2020-01-12 14:17 | NUR ---
*-* INSURANCE *-* ALL AVAILABLE CLINICALS HAVE BEEN FAXED TO: Ref# [id number] #[phone] fax#[phone]
--- NOTE | 2020-01-12 14:46 | NUR ---
CARDIOLOGY: DR MAY SAID HE RECENTLY DID THE STRESS TEST FOR THIS PATIENT. DR MAY ALSO MENTIONED PATIENT HAD THE STRESS TEST IN OTHER HOSPITAL RECENTLY.
[2020-01-12 16:00] VITALS: BP 115/64
--- NOTE | 2020-01-12 16:27 | NUR ---
CASE MANAGEMENT:REVIEW 01/12/20 SI: CHEST PAIN. H/O PULMONARY EMBOLI AND PACEMAKER 97.0 77 18 130/77 99% ON RA TROPONIN(-) X4 IS: LIPITOR PO QHS PROSCAR PO QD FLOMAX PO QHS ELIQUIS PO BID IV MORPHINE Q8HRS PRN : TELEMETRY STATUS PLAN: STRESS TEST FOR AM
--- NOTE | 2020-01-12 16:48 | NUR ---
NURSE NOTES: Md Stafford and Chana aware of previous and recent stress test at [facility], Nurse Wiliam Faxed release of Information waiting on reply with stress test results.
--- NOTE | 2020-01-12 19:07 | NUR ---
HAND-OFF: Report given to Stella NAIR.
--- NOTE | 2020-01-12 19:10 | NUR ---
NURSE NOTES: Report received from KOREY Andino. Patient AOx4. Breathing unlabored and even. Seen resting on bed. Able to verbalize needs. IV site intact and asymptomatic; flushed. No IVF running at this time. No complaints of pain and discomfort at this time. Bed in lowest position, brakes engaged, bed alarm on. Bed rails raised x2. Call light and belongings placed within reach. Will continue to monitor.
[2020-01-12 20:00] VITALS: BP 126/72
[2020-01-12] MEDS: Tamsulosin 0.4mg cap ORAL SCH (20:26)
[2020-01-13] VITALS: BP 112/55
[2020-01-13] MEDS: Morphine Sulfate 2mg/ml Inj(IV/IM USE ONLY) IVP PRN (02:18)
--- NOTE | 2020-01-13 03:30 | NUR ---
NURSE NOTES: Patient seen resting in bed. On room air, saturating well. Breathing unlabored and even. Was given pain medication an hour ago, noted alleviation of pain after administration. Call light placed within reach. Bed in lowest position, brakes engaged, bed alarm on. Will continue to monitor.
[2020-01-13 04:00] VITALS: BP 124/68
--- NOTE | 2020-01-13 07:15 | NUR ---
HAND-OFF: Report given to KOREY Andino. Patient stable. Plan of care endorsed. Made aware of the ekg's request for cancellation.
--- NOTE | 2020-01-13 07:52 | NUR ---
NURSE NOTES: Received patient in bed. Awake, A/o x4. On room air, respirations unlabored. Patient denies pain at this time. IV in the Left forearm, site intact. Side rails up x2, bed low and locked. Heart monitor in place.
[2020-01-13 08:00] VITALS: BP 119/55
[2020-01-13] MEDS: Cosopt Opth Soln 10 mL Btl BOTH EYES SCH (09:15)
[2020-01-13] MEDS: Eliquis 5mg tablet ORAL SCH (09:15)
[2020-01-13] MEDS: Brimonidine 0.2% Opth Sol BOTH EYES SCH (09:15)
--- NOTE | 2020-01-13 09:55 | General Progress Note ---
Assessment/Plan Problem List: (1) Chest pain ICD Codes: R07.9 - Chest pain, unspecified SNOMED: 17997026 (2) Diabetes mellitus ICD Codes: E11.9 - Type 2 diabetes mellitus without complications SNOMED: 56638863 (3) Hx pulmonary embolism ICD Codes: Z86.711 - Hx pulmonary embolism SNOMED: 492108049 (4) HTN (hypertension) ICD Codes: I10 - Essential (primary) hypertension SNOMED: 00254539 (5) Lumbar spondylosis ICD Codes: M47.9 - Lumbar spondylosis SNOMED: 998489676 (6) COPD (chronic obstructive pulmonary disease) ICD Codes: J44.9 - COPD (chronic obstructive pulmonary disease) SNOMED: 64166062 (7) DDD (degenerative disc disease), lumbar ICD Codes: M51.36 - DDD (degenerative disc disease), lumbar SNOMED: 14927129 (8) Smoking history ICD Codes: Z87.891 - Personal history of nicotine dependence SNOMED: 787519895 (9) DVT (deep venous thrombosis) ICD Codes: I82.409 - DVT (deep venous thrombosis) SNOMED: 655891088 (10) History of pacemaker ICD Codes: Z95.0 - Presence of cardiac pacemaker SNOMED: 350135526 (11) Glaucoma ICD Codes: H40.9 - Unspecified glaucoma SNOMED: 95080029 (12) Status post thoracotomy ICD Codes: Z98.89 - Status post thoracotomy SNOMED: 89042098 Status: stable Assessment/Plan: 64 years old male with history of prior MN, HTN, s/p pacemaker, COPD/asthma, history of PE s/p IVC filter on anticoagulation, T2DM, who presents with recurrent left sided chest pain, admitted for ACS rule out #Chronic Chest pain #History of MN #HLD #History of PE s/p IVC filter on anticoagulation - admitted multiples times for chest pain. Recently admitted 1 month ago where he refused stress test. His pain was thought to be musculoskeletal in nature. Initial EKG/troponin in ED reassuring from ACS standpoint. Doubt chronic or recurrent PE as he is on anticoagulation and no tachycardia/hypoxia. Could consider GI etiology as he reports improvement with certain liquids/foods and also post-surgical pain from prior sternotomy - Cardiology who saw him during last admission Dr. Zaays, recommending cardiac stress test which is ordered, pending today - Hematology-Oncology Dr. Gordon, who saw patient prior, will follow for PE management - pain control with tylenol, judicious use of opioids. set expectation with patient that we would not likely be able to resolve his chest pain entirely by discharge, but that we would make sure he does not have a life threatening cause of his chest pain. he reported that he knows he needs to follow up with a primary care provider for continuous churn buttermaker control of the pain. Told today that he would likely leave following stress testing if normal and he agreed - continue home lipitor - continue home eliquis #COPD/asthma: no evidence of exacerbation at this time - continue monitoring #T2DM - continue home metformin 850 mg BID #Glaucoma- continue home eye drops #BPH - continue home flomax/finasteride #FEN/GI - cardiac diet - no DVT prophylaxis as on eliquis #Dispo: Pending stress test, will discharge today or tomorrow. If he refuses test again he will be discharged and follow up with PCP for further management of chronic chest pain I spent 38 minutes on this case, with > 50% of the time spent on face-face care with patient and counseling. I coordinated with Field Sampling Technician, Cardiology, and nursing Subjective Date patient seen: Jan 13, 2020 Time patient seen: 07:45 Constitutional: Denies: chills, diaphoresis, fever HEENT: Denies: eye pain, blurred vision, double vision Cardiovascular: Reports: chest pain - unchanged; Denies: edema, lightheadedness Respiratory: Denies: cough, orthopnea, shortness of breath Gastrointestinal/Abdominal: Denies: abdomen distended, abdominal pain, nausea, vomiting Genitourinary: Denies: burning, discharge, frequency Neurologic/Psychiatric: Denies: anxiety, depressed Endocrine: Denies: excessive sweating, intolerance to cold, intolerance to heat Hematologic/Lymphatic: Denies: anemia, easy bleeding, easy bruising Allergies: Coded Allergies: HYDROMORPHONE (Verified Allergy, Unknown, 09/02/19) Uncoded Allergies: CONTRAST DYE (Allergy, Unknown, 03/15/19) IODINE CONTRAST (Allergy, Unknown, 09/26/19) All Systems: reviewed and negative except above Subjective EKG unchanged overnight and troponin remains negative. patient reports unchanged left sided chest pain but otherwise says he is "feeling well" Objective Last 24 Hour Vital Signs Date Time Temp Pulse Resp B/P (MAP) Pulse Ox O2 Delivery O2 Flow Rate FiO2 01/13/20 08:20 Room Air 01/13/20 08:00 74 01/13/20 08:00 97.5 64 20 119/55 (76) 99 01/13/20 04:00 97.5 66 18 124/68 (86) 98 01/13/20 04:00 66 01/13/20 00:00 71 01/13/20 00:00 98.1 70 18 112/55 (74) 98 01/12/20 21:00 Room Air 01/12/20 20:00 97.7 71 18 126/72 (90) 98 01/12/20 20:00 72 01/12/20 16:00 98.1 68 18 115/64 (81) 98 01/12/20 16:00 61 01/12/20 12:00 66 01/12/20 12:00 98.1 66 18 114/68 (83) 98 Intake and Output 01/12/20 01/13/20 19:00 07:00 Intake Total 400 ml Balance 400 ml Intake Oral 400 ml # Voids 12 2 # Bowel Movements 2 Laboratory Tests 01/12/20 15:57: Troponin I 0.000 01/13/20 09:20: Sodium Level [Pending], Potassium Level [Pending], Chloride Level [Pending], Carbon Dioxide Level [Pending], Blood Urea Nitrogen [Pending], Creatinine [ Pending], Estimat Glomerular Filtration Rate [Pending], Glucose Level [Pending] , Calcium Level [Pending], Magnesium Level [Pending], Total Bilirubin [Pending] , Aspartate Amino Transf (AST/SGOT) [Pending], Alanine Aminotransferase (ALT/ SGPT) [Pending], Alkaline Phosphatase [Pending], Total Protein [Pending], Albumin [Pending], Globulin [Pending] Height (Feet): 5 Height (Inches): 8.00 Weight (Pounds): 200 General Appearance: WD/WN, no apparent distress, alert EENT: PERRL/EOMI, normal ENT inspection, pharynx normal Neck: non-tender, normal alignment, supple, normal inspection Cardiovascular: normal peripheral pulses, normal rate, regular rhythm, no gallop/murmur, no JVD Respiratory/Chest: chest wall non-tender, lungs clear, normal breath sounds, no respiratory distress Abdomen: normal bowel sounds, non tender, soft, no mass Pelvis: no active bleeding Extremities: normal range of motion, non-tender, normal inspection Edema: no edema noted Arm (L), no edema noted Arm (R), no edema noted Leg (L), no edema noted Leg (R), no edema noted Pedal (L), no edema noted Pedal (R) Neurologic: grinding room inspector II-XII grossly normal, no motor/sensory deficits, alert, oriented x 3 Skin: normal pigmentation, warm/dry Chuck Russo M.D. Jan 13, 2020 09:55
[2020-01-13 10:01] LABS: ALANINE AMINOTRANSFERASE 28 U/L (12-78); ALBUMIN 3.8 G/DL (3.4-5.0); ALBUMIN/GLOBULIN RATIO 1.2 (1.0-2.7); ALKALINE PHOSPHATASE 73 U/L (46-116); ANION GAP 10 mmol/L (5-15); ASPARTATE AMINO TRANSFERASE 19 U/L (15-37); BILIRUBIN,TOTAL 0.4 MG/DL (0.2-1.0); BLOOD UREA NITROGEN 13 mg/dL (7-18); CALCIUM 9.2 MG/DL (8.5-10.1); CARBON DIOXIDE 26 MMOL/L (21-32); CHLORIDE 105 MMOL/L (98-107); CREATININE 1.2 MG/DL (0.55-1.30); POTASSIUM 4.4 MMOL/L (3.5-5.1); SODIUM 140 MMOL/L (136-145)
--- NOTE | 2020-01-13 10:10 | NUR ---
NURSE NOTES: Received fax from [facility] with cardiac catheterization. Dr. Zayas contacted with documents. Stress test cancelled.
[2020-01-13] MEDS ORDERED: METFORMIN HCL850 M1 ORAL (10:24)
--- NOTE | 2020-01-13 10:25 | Discharge Instructions ---
Discharge Instructions Discharge Instructions Follow up with: primary care provider within 1 week of discharge Call MD/Return to Hospital if: worsening chest pain than usual, sweating, dizziness, shortness of breath Diet: regular Resume Normal Activity?: Yes Activity: resume normal activities For Congestive Heart Failure Reminder Report to your physician any weight gain of 5 pounds or more in one week. Chuck Russo M.D. Jan 13, 2020 10:25
--- NOTE | 2020-01-13 10:35 | NUR ---
[employer] NURSE NOTES: Called to unit to speak with patient in regards to unknown concerns, upon entering room and identifying myself patient stated "I'm busy on the phone right now and I don't need your help". I informed patient of my direct extension and if any concerns arise or if he changes my mind and wishes to speak with to contact me at anytime. Charge Nurse and Primary Nurse made aware of the above mentioned and agree to contact me at patient's request or further needs that require my assistance.
--- NOTE | 2020-01-13 10:38 | Cardiac Electrophysiology PN ---
Assessment/Plan Assessment/Plan 1. Chest pain. Patient was ruled out for myocardial infarction again. His EKG is completely normal, nonischemic. Patient has had many previous hospitalizations and has refused multiple stress tests. Cardiac cath report from [facility] [place] obtained that showed No CAD based on cath on 12/31/[address] Anthony Cancel Stress test. OK to DC 2. History of pulmonary embolism, status post open pulmonary embolectomy. Continue Eliquis.DDimer now negative. 3. Status post [facility] permanent pacemaker interrogation. Interrogated in last admission with normal function. 4. Hyperlipidemia, on Lipitor. 5. Glaucoma. 6. Benign prostatic hypertrophy. DW RN Subjective Subjective No cardiac events. Remained in SR. Cardiac cath report from [facility] at [place] obtained that showed No CAD based on cath on 12/31/[address] Anthony Objective Last 24 Hour Vital Signs Date Time Temp Pulse Resp B/P (MAP) Pulse Ox O2 Delivery O2 Flow Rate FiO2 01/13/20 08:20 Room Air 01/13/20 08:00 74 01/13/20 08:00 97.5 64 20 119/55 (76) 99 01/13/20 04:00 97.5 66 18 124/68 (86) 98 01/13/20 04:00 66 01/13/20 00:00 71 01/13/20 00:00 98.1 70 18 112/55 (74) 98 01/12/20 21:00 Room Air 01/12/20 20:00 97.7 71 18 126/72 (90) 98 01/12/20 20:00 72 01/12/20 16:00 98.1 68 18 115/64 (81) 98 01/12/20 16:00 61 01/12/20 12:00 66 01/12/20 12:00 98.1 66 18 114/68 (83) 98 Intake and Output 01/12/20 01/13/20 19:00 07:00 Intake Total 400 ml Balance 400 ml Intake Oral 400 ml # Voids 12 2 # Bowel Movements 2 Laboratory Tests Test 01/12/20 15:57 01/13/20 09:20 Troponin I 0.000 ng/mL (0.000-0.056) Sodium Level 140 MMOL/L (136-145) Potassium Level 4.4 MMOL/L (3.5-5.1) Chloride Level 105 MMOL/L (98-107) Carbon Dioxide Level 26 MMOL/L (21-32) Anion Gap 10 mmol/L (5-15) Blood Urea Nitrogen 13 mg/dL (7-18) Creatinine 1.2 MG/DL (0.55-1.30) Estimat Glomerular Filtration Rate > 60 mL/min (>60) Glucose Level 156 MG/DL (74-106) H Calcium Level 9.2 MG/DL (8.5-10.1) Magnesium Level 1.9 MG/DL (1.8-2.4) Total Bilirubin 0.4 MG/DL (0.2-1.0) Aspartate Amino Transf (AST/SGOT) 19 U/L (15-37) Alanine Aminotransferase (ALT/SGPT) 28 U/L (12-78) Alkaline Phosphatase 73 U/L (46-116) Total Protein 7.0 G/DL (6.4-8.2) Albumin 3.8 G/DL (3.4-5.0) Globulin 3.2 g/dL Albumin/Globulin Ratio 1.2 (1.0-2.7) Objective HEAD AND NECK: Showed no JVD or carotid bruits. LUNGS: Clear. CARDIOVASCULAR: Shows regular S1 and S2 with no gallop or murmur. ABDOMEN: Soft. EXTREMITIES: No pitting edema. Gato Zayas MD Jan 13, 2020 10:38
--- NOTE | 2020-01-13 10:46 | NUR ---
NURSE NOTES: RN talked with patient regarding discharge. Discharge paperwork provided to patient. patient states he does not need taxi, that he can get his own transportation. Patient states he called medicare for an appeal to discharge. Patient informed he is under observation status. Nursing tank shop supervisor made aware.
--- NOTE | 2020-01-13 11:03 | Discharge Summary ---
Discharge Summary Hospital Course Date of Admission Jan 11, 2020 at 12:01 Date of Discharge 01/13/2020 Admitting Diagnosis CHEST PAIN,ACS rule out Reason for Hospitalization: chest pain evaluation HPI This is a 64 year old man with a history of NE in 2017, s/p pacemaker placement , COPD/asthma, PE s/p IVC filter on eliquis s/p thrombectomy, T2DM who presented with chest pain. Of note, he was just admitted 11/2019 also for chest pain. At that time, he was evaluated by Dr. Zayas, Cardiology, and Dr. Tamayo, Pulmonology. He was again offered stress testing, but refused. He has had multiple stress tests and V/Q scans in the past which have all been negative. His home medications were continued and it was felt that his chest pain was most likely musculoskeletal and he improved with analgesics. He was then discharged. Day of admission, he presented with 1.5 hour duration of sharp left-sided chest pain. He said that this pain started suddenly when he was simply speaking to his friends. This radiated up to his left neck. This felt similar to prior episodes of chest pain except that this did not occur with exertion. This was associated with mild shortness of breath. He otherwise did not have fevers, chills, nausea, vomiting, palpitations, diaphoresis, leg swelling. He had been compliant with medications. He then presented to ED where he was afebrile and hemodynamically stable. His EKG was unchanged from prior and troponin negative. He was given pain control and admitted for ACS rule out. Consultations Cardiology - Dr. Zayas Procedures N/A Hospital Course The patient was admitted and had 4 negative troponins and 4 negative EKG for ACS as well as right heart strain. He claimed to us that his last stress test was over 1 year ago and that he was not seen at [facility] [place] since that time. However, we were able to obtain records with his release of information and he was untruthful. He in fact, just had a cardiac catheterization on and the report was reviewed by myself and Dr. Zayas. This demonstrated no evidence of obstructive CAD of any kind. His pain is likely musculoskeletal and there is also a significant concern for malingering as well given his untruthful account of history. He then demanded to have a V/Q scan when told he was about to be discharged. No V/Q scan is warranted as discussed with Dr. Zayas as he has negative D-dimer, no evidence of right heart strain, tachycardia, hypoxia, and has been on anticoagulation for many years. He is discharged to follow up with PCP for management of non-cardiac, non-pulmonary etiology of pain. 64 years old male with history of prior NE, HTN, s/p pacemaker, COPD/asthma, history of PE s/p IVC filter on anticoagulation, T2DM, who presents with recurrent left sided chest pain, admitted for ACS rule out #Chronic Chest pain #History of NE #HLD #History of PE s/p IVC filter on anticoagulation - admitted multiples times for chest pain. Recently admitted 1 month ago where he refused stress test. His pain was thought to be musculoskeletal in nature. Initial EKG/troponin in ED reassuring from ACS standpoint. Doubt chronic or recurrent PE as he is on anticoagulation and no tachycardia/hypoxia and negative D-dimer. - Cardiac cath report from [facility] [place] obtained that showed No CAD based on cath on 12/31/[address] Raj Umaña Stress test. - Cardiology who saw him during last admission Dr. Zayas, recommending discharge as pain is non-cardiac in nature - Hematology-Oncology Dr. Gordon, followed for PE anti-coagulation follow up - pain control with tylenol, judicious use of opioids - continue home lipitor - continue home eliquis #COPD/asthma: no evidence of exacerbation at this time - continue monitoring #T2DM - continue home metformin 850 mg BID #Glaucoma- continue home eye drops #BPH - continue home flomax/finasteride I spent 40 minutes on this discharge, with > 50% of the time spent on face-face care with patient and counseling. I coordinated with Client Relations Specialist, Cardiology, and nursing Discharge Medications New Medications: Metformin Hcl* (Metformin Hcl*) 850 Mg Tablet 850 MG ORAL BID for 30 Days, TAB Continued Medications: Apixaban (Eliquis) 5 Mg Tablet 5 MG PO BID, TAB Atorvastatin Calcium* (Lipitor*) 10 Mg Tablet 10 MG ORAL DAILY for hyperlipidemia, TAB (This prescription has been renewed) Brimonidine Tartrate* (Alphagan*) 5 Ml Drops 2 DROP BOTH EYES BID for eye pressure, ML Dorzolamide HCl/Timolol Maleat (Dorzolamide-Timolol Eye Drops) 1 Drop Drops 1 DROP BOTH EYES TWICE A DAY, ML (This prescription has been renewed) Finasteride* (Proscar*) 5 Mg Tablet 5 MG ORAL DAILY, #30 TAB 0 Refills (This prescription has been renewed) Tamsulosin Hcl (Tamsulosin Hcl*) 0.4 Mg Cap.er.24h 0.4 MG ORAL BEDTIME, CAP (This prescription has been renewed) Travoprost (Benzalkonium) (Travatan 0.004% Eye Drop) 2.5 Ml Drops 1 DROP BOTH EYES BEDTIME, #2.5 ML (This prescription has been renewed) Discontinued Medications: Metformin Hcl* (Metformin Hcl*) 500 Mg Tablet 500 MG ORAL TWICE A DAY, TAB Discharge Condition Upon Discharge: stable Discharge Vital Signs Last Vital Signs Date Time Temp Pulse Resp B/P (MAP) Pulse Ox O2 Delivery O2 Flow Rate FiO2 01/13/20 08:20 Room Air 01/13/20 08:00 74 01/13/20 08:00 97.5 20 119/55 (76) 99 01/11/20 08:45 98 Discharge Disposition Patient was discharged to home Discharge Diagnoses: (1) Musculoskeletal chest pain (2) History of pacemaker (3) Smoking history (4) COPD (chronic obstructive pulmonary disease) (5) DDD (degenerative disc disease), lumbar (6) HTN (hypertension) (7) Hx pulmonary embolism (8) Diabetes mellitus (9) Glaucoma (10) Chronic anticoagulation (11) Status post thoracotomy Discharge Instructions Discharge Instructions Follow up with: primary care provider within 1 week of discharge Call MD/Return to Hospital if: worsening chest pain than usual, sweating, dizziness, shortness of breath Activity: resume normal activities Chuck Russo M.D. Jan 13, 2020 11:03
--- NOTE | 2020-01-13 11:40 | NUR ---
NURSE NOTES: Patient is to be discharged. Patient refusing and states he wants to talk to case management regarding appeal.
[2020-01-13 12:00] VITALS: BP 118/69
--- NOTE | 2020-01-13 12:23 | Hematology/Onc Progress Note ---
Assessment/Plan Assessment/Plan Assessment and Recs # Pulmonary embolism, status post open embolectomy history. The patient has multiple V/Q scan had been negative. Most recent one in April 2019 at [facility] was also negative. --> He is on Eliquis 5 mg b.i.d. --> continue at current dosing -> is s/p ivc filter as well --> no bleeding at this time # Anemia of chronic disease --> trend h/h as needed --> currently is stable # Atypical chest pain and History of permanent pacemaker. --> in past refused stress test, to get stress treadmill test --> per Dr. Zayas # S/P [facility] pacer that was interrogated recently and showed Nl Fx # Hyperlipidemia, on Lipitor. # Diabetes, on metformin.tus post embolectomy. # RA # NH 2017 # Dvt ppx kindra GRAHAM RN and appreciate consultation Subjective Constitutional: Denies: no symptoms, chills, fever, malaise, weakness, other HEENT: Denies: no symptoms, eye pain, blurred vision, tearing, double vision, ear pain, ear discharge, nose pain, nose congestion, throat pain, throat swelling, mouth pain, mouth swelling, other Cardiovascular: Denies: no symptoms, chest pain, edema, irregular heart rate, lightheadedness, palpitations, syncope, other Respiratory: Denies: no symptoms, cough, shortness of breath, SOB with excertion, SOB at rest, sputum, wheezing, other Gastrointestinal/Abdominal: Denies: no symptoms, abdomen distended, abdominal pain, black stools, tarry stools, blood in stool, constipated, diarrhea, difficulty swallowing, nausea, poor appetite, poor fluid intake, rectal bleeding , vomiting, other Neurologic/Psychiatric: Denies: no symptoms, anxiety, depressed, emotional problems, headache, numbness, paresthesia, pre-existing deficit, seizure, tingling, tremors, weakness, other Endocrine: Denies: no symptoms, excessive sweating, flushing, intolerance to cold, intolerance to heat, increased hunger, increased thirst, increased urine, unexplained weight gain, unexplained weight loss, other Hematologic/Lymphatic: Denies: no symptoms, anemia, easy bleeding, easy bruising, adenopathy, other Allergies: Coded Allergies: HYDROMORPHONE (Verified Allergy, Unknown, 09/02/19) Uncoded Allergies: CONTRAST DYE (Allergy, Unknown, 03/15/19) IODINE CONTRAST (Allergy, Unknown, 09/26/19) Subjective 01/12 sleepy this am, no bleeding, labs noted, no night sweats, for dc Objective Objective Current Medications Medications (Trade) Dose Ordered Sig/Kristan Route PRN Reason Start Time Stop Time Status Last Admin Dose Admin Acetaminophen (Tylenol) 650 mg Q4H PRN ORAL Mild Pain (Pain Scale 1-3) 01/11/20 12:00 02/10/20 11:59 Acetaminophen (Tylenol) 650 mg Q6H PRN ORAL For Headache 01/11/20 13:45 02/10/20 13:44 Apixaban (Eliquis) 5 mg BID ORAL 01/11/20 18:00 04/10/20 17:59 01/13/20 09:15 Atorvastatin Calcium (Lipitor) 10 mg DAILY ORAL 01/12/20 09:00 04/11/20 08:59 01/13/20 09:15 Brimonidine Tartrate (Alphagan) 2 drop BID BOTH EYES 01/11/20 18:00 04/10/20 17:59 01/13/20 09:15 Dextrose (Dextrose 50%) 25 ml Q30M PRN IV Hypoglycemia 01/11/20 12:00 04/10/20 11:59 Dextrose (Dextrose 50%) 50 ml Q30M PRN IV Hypoglycemia 01/11/20 12:00 04/10/20 11:59 Dorzolamide/ Timolol (Cosopt) 1 drop TWICE A DAY BOTH EYES 01/11/20 18:00 02/10/20 17:59 01/13/20 09:15 Finasteride (Proscar) 5 mg DAILY ORAL 01/12/20 09:00 04/11/20 08:59 01/13/20 09:15 Morphine Sulfate (Morphine Sulfate) 2 mg Q8HR PRN IVP severe pain 01/11/20 14:15 01/18/20 14:14 01/13/20 02:18 Nitroglycerin (Ntg) 0.4 mg Q5M X 3 DOSES PRN SL Prn Chest Pain 01/11/20 12:00 02/10/20 11:59 Patient Own Medication (Patient's Own Med) 1 ea QHS BOTH EYES 01/12/20 21:00 02/11/20 20:59 01/12/20 20:26 Tamsulosin HCl (Flomax) 0.4 mg BEDTIME ORAL 01/11/20 21:00 02/10/20 20:59 01/12/20 20:26 Tramadol HCl (Ultram) 50 mg Q6H PRN ORAL moderate pain 01/11/20 14:15 01/18/20 14:14 Last 24 Hour Vital Signs Date Time Temp Pulse Resp B/P (MAP) Pulse Ox O2 Delivery O2 Flow Rate FiO2 01/13/20 08:20 Room Air 01/13/20 08:00 74 01/13/20 08:00 97.5 64 20 119/55 (76) 99 01/13/20 04:00 97.5 66 18 124/68 (86) 98 01/13/20 04:00 66 01/13/20 00:00 71 01/13/20 00:00 98.1 70 18 112/55 (74) 98 01/12/20 21:00 Room Air 01/12/20 20:00 97.7 71 18 126/72 (90) 98 01/12/20 20:00 72 01/12/20 16:00 98.1 68 18 115/64 (81) 98 01/12/20 16:00 61 01/12/20 12:00 66 01/12/20 12:00 98.1 66 18 114/68 (83) 98 01/12/20 08:32 Room Air 01/12/20 08:00 97.0 77 18 130/77 (94) 99 01/12/20 08:00 103 01/12/20 05:06 97.1 01/12/20 04:00 97.5 66 18 124/73 (90) 97 01/12/20 03:29 67 01/12/20 00:00 97.1 63 18 116/69 (85) 96 01/11/20 23:31 62 01/11/20 21:00 Room Air 01/11/20 20:04 71 01/11/20 20:00 96.9 67 18 120/77 (91) 97 01/11/20 16:00 97.7 79 18 121/64 (83) 99 01/11/20 16:00 76 01/11/20 13:00 91 01/11/20 12:58 Room Air 01/11/20 12:49 98.5 81 16 127/68 99 Room Air Intake and Output 01/12/20 01/13/20 19:00 07:00 Intake Total 400 ml Balance 400 ml Intake Oral 400 ml # Voids 12 2 # Bowel Movements 2 Labs Test 01/11/20 09:49 01/11/20 19:50 01/12/20 08:25 01/12/20 15:57 White Blood Count 5.8 K/UL (4.8-10.8) 7.5 K/UL (4.8-10.8) Red Blood Count 4.31 M/UL (4.70-6.10) 4.36 M/UL (4.70-6.10) Hemoglobin 11.0 G/DL (14.2-18.0) 11.2 G/DL (14.2-18.0) Hematocrit 36.1 % (42.0-52.0) 36.5 % (42.0-52.0) Mean Corpuscular Volume 84 FL (80-99) 84 FL (80-99) Mean Corpuscular Hemoglobin 25.6 PG (27.0-31.0) 25.6 PG (27.0-31.0) Mean Corpuscular Hemoglobin Concent 30.6 G/DL (32.0-36.0) 30.6 G/DL (32.0-36.0) Red Cell Distribution Width 16.2 % (11.6-14.8) 16.5 % (11.6-14.8) Platelet Count 180 K/UL (150-450) 177 K/UL (150-450) Mean Platelet Volume 9.4 FL (6.5-10.1) 11.2 FL (6.5-10.1) Neutrophils (%) (Auto) 69.9 % (45.0-75.0) 69.5 % (45.0-75.0) Lymphocytes (%) (Auto) 17.4 % (20.0-45.0) 18.7 % (20.0-45.0) Monocytes (%) (Auto) 9.0 % (1.0-10.0) 9.2 % (1.0-10.0) Eosinophils (%) (Auto) 2.6 % (0.0-3.0) 2.0 % (0.0-3.0) Basophils (%) (Auto) 1.1 % (0.0-2.0) 0.5 % (0.0-2.0) D-Dimer 0.36 mg/L FEU (0.00-0.49) Sodium Level 141 MMOL/L (136-145) 140 MMOL/L (136-145) Potassium Level 3.8 MMOL/L (3.5-5.1) 4.4 MMOL/L (3.5-5.1) Chloride Level 107 MMOL/L (98-107) 107 MMOL/L (98-107) Carbon Dioxide Level 25 MMOL/L (21-32) 24 MMOL/L (21-32) Anion Gap 9 mmol/L (5-15) 9 mmol/L (5-15) Blood Urea Nitrogen 16 mg/dL (7-18) 13 mg/dL (7-18) Creatinine 1.4 MG/DL (0.55-1.30) 1.3 MG/DL (0.55-1.30) Estimat Glomerular Filtration Rate > 60 mL/min (>60) > 60 mL/min (>60) Glucose Level 166 MG/DL (74-106) 141 MG/DL (74-106) Calcium Level 9.1 MG/DL (8.5-10.1) 9.1 MG/DL (8.5-10.1) Total Bilirubin 0.3 MG/DL (0.2-1.0) 0.4 MG/DL (0.2-1.0) Aspartate Amino Transf (AST/SGOT) 18 U/L (15-37) 15 U/L (15-37) Alanine Aminotransferase (ALT/SGPT) 22 U/L (12-78) 23 U/L (12-78) Alkaline Phosphatase 69 U/L (46-116) 66 U/L (46-116) Troponin I 0.000 ng/mL (0.000-0.056) 0.000 ng/mL (0.000-0.056) 0.000 ng/mL (0.000-0.056) 0.000 ng/mL (0.000-0.056) C-Reactive Protein, Quantitative < 0.4 mg/dL (0.00-0.90) Pro-B-Type Natriuretic Peptide 87 pg/mL (0-125) 126 pg/mL (0-125) Total Protein 6.8 G/DL (6.4-8.2) 6.5 G/DL (6.4-8.2) Albumin 3.6 G/DL (3.4-5.0) 3.6 G/DL (3.4-5.0) Globulin 3.2 g/dL 2.9 g/dL Albumin/Globulin Ratio 1.1 (1.0-2.7) 1.2 (1.0-2.7) Lipase 180 U/L (73-393) Hemoglobin A1c 7.7 % (4.3-6.0) Triglycerides Level 130 MG/DL (30-150) Cholesterol Level 133 MG/DL (< 200) LDL Cholesterol 65 mg/dL (<100) HDL Cholesterol 37 MG/DL (40-60) Cholesterol/HDL Ratio 3.6 (3.3-4.4) Thyroid Stimulating Hormone (TSH) 1.584 uiU/mL (0.358-3.740) Test 01/13/20 09:20 Sodium Level 140 MMOL/L (136-145) Potassium Level 4.4 MMOL/L (3.5-5.1) Chloride Level 105 MMOL/L (98-107) Carbon Dioxide Level 26 MMOL/L (21-32) Anion Gap 10 mmol/L (5-15) Blood Urea Nitrogen 13 mg/dL (7-18) Creatinine 1.2 MG/DL (0.55-1.30) Estimat Glomerular Filtration Rate > 60 mL/min (>60) Glucose Level 156 MG/DL (74-106) Calcium Level 9.2 MG/DL (8.5-10.1) Magnesium Level 1.9 MG/DL (1.8-2.4) Total Bilirubin 0.4 MG/DL (0.2-1.0) Aspartate Amino Transf (AST/SGOT) 19 U/L (15-37) Alanine Aminotransferase (ALT/SGPT) 28 U/L (12-78) Alkaline Phosphatase 73 U/L (46-116) Total Protein 7.0 G/DL (6.4-8.2) Albumin 3.8 G/DL (3.4-5.0) Globulin 3.2 g/dL Albumin/Globulin Ratio 1.2 (1.0-2.7) Height (Feet): 5 Height (Inches): 8.00 Weight (Pounds): 200 Objective Physical Exam: Vitals: reviewed General: NAD HEENT: nc, at Neck: supple Chest: clear breath sounds bilaterally Cardiovascular: RRR, no s3, s4 Neuro: alert and oriented Adilson Gordon MD Jan 13, 2020 12:23
--- NOTE | 2020-01-13 12:38 | NUR ---
WELDING MACHINE OPERATOR NOTE Pt called this SW's extension stating he called 211 and made an appt w/ SW on . Pt did not share w/ this SW in details i.e. the reason for appt/any concern in regards to this appt/appt w/ which department/agency or whom. This was a random statement that this SW is not involved. This music writer attempted to explore if there is anything that can be assisted by this music writer but pt did not disclose anything. He also shared that he wanted to share his concern that can be answered by the nursing supervisor operations. SW encouraged pt to speak to the nursing supervisor operations directly. PT hang up without him verbalizing understanding/sharing any issue. Per chart review, the nursing supervisor operations attempted to meet w/ pt earlier today but pt refused.
--- NOTE | 2020-01-13 12:46 | NUR ---
DISCHARGE APPEAL REACTOR SERVICE OPERATOR HAS SPOKEN WITH PATIENT ABOUT DISCHARGE DIRECTOR OF FATS AND OILS LOADER HAS SPOKEN TO PATIENT ABOUT DISCHARGE FATS AND OILS LOADER CALL [employer] @[phone] AND SPOKE WITH JESSICA EXPLAINED TO JESSICA THAT PATIENT HAS APPEALED HIS DISCHARGE BUT HAS EXHAUSTED HIS PART A JESSICA INSTRUCTED THIS FATS AND OILS LOADER TO FAX DOCUMENTATION OF EXHAUSTED MEDICARE DAYS FAXED DOCUMENTS TO [facility] F: [phone]
--- NOTE | 2020-01-13 14:11 | Diagnostic Imaging Report ---
INDICATION: Chest pain. Comparison: None available. TECHNIQUE: Using a one day protocol, the patient was injected IV with 10.3 mCi of Myoview. Thirty minutes later, resting gated SPECT images were acquired. Please note that the stress portion of the study was canceled by the ordering physician upon receiving results from recent cardiac catheterization at a nearby hospital. This exam consists of resting images only. FINDINGS: There is photopenia noted in the inferior wall of the myocardium. The anterior, lateral wall as well as the septum show relatively homogeneous uptake. IMPRESSION: Limited resting only exam showing photopenia in the inferior wall of the myocardium. * Please note that this study is performed without the benefit of attenuation correction. Diaphragmatic creep attenuation artifacts can mimic an inferior wall abnormality.
[2020-01-13] MEDS: Lexiscan 0.4mg/5ml syringe IV SCH (14:22)
--- NOTE | 2020-01-13 14:26 | NUR ---
PRODUCER DIRECTOR NOTES SPOKE WITH YOGI FROM [facility], APPEAL WITHDRAWAL DO TO EXAUSTED MEDICARE DAYS. PT MADE AWARE. Addendum: 01/13/20 at 1509 by PRISCILLA GONZALEZ RN RN RECEIVED A CALL FROM BIBI FROM [facility] TO [facility] APPEAL HAS BEEN WITHDRAWAL DUE TO EXHAUSTED DAYS.
--- NOTE | 2020-01-13 14:58 | NUR ---
CASE MANAGEMENT:REVIEW 01/13/20 SI: CHEST PAIN. H/O PULMONARY EMBOLI AND PACEMAKER 97.5 73 20 118/69 100% ON RA TROPONIN(-) 4 IS: LIPITOR PO QHS PROSCAR PO QD FLOMAX PO QHS ELIQUIS PO BID IV MORPHINE Q8HRS PRN : TELEMETRY STATUS PLAN: STRESS TEST CANCELLED SINCE WAS WAS RECENTLY DONE AT [facility] TODAY
--- NOTE | 2020-01-13 15:06 | NUR ---
INSURANCE REVIEWS AND CLINICALS FAXED TO [facility] T: [phone] F: [phone] REF #[id number]
--- NOTE | 2020-01-13 15:47 | NUR ---
NURSE NOTES: Patient discharged. IV site removed, ID band removed, belongings list verified, medications returned to patient. VSS.
--- NOTE | 2020-01-16 16:10 | NUR ---
*-* INSURANCE *-* DISCHARGE SUMMARY HAS BEEN FAXED [facility] T: [phone] F: [phone] REF #[id number]
== END 2020-01-13 15:40 | disposition home or self-care (01) ==
LOC: EMR 09:02 → EDBEDREQ 11:53 → 2E 12:01 → INTOOBSV 12:01 → EDBEDREQ 12:10
DX: R07.9 Chest pain, unspecified (principal); J44.9 Chronic obstructive pulmonary disease, unspecified; E11.9 Type 2 diabetes mellitus without complications; I10 Essential (primary) hypertension; Z79.84 Long term (current) use of oral hypoglycemic drugs; Z88.6 Allergy status to analgesic agent; Z91.041 Radiographic dye allergy status; Z86.718 Personal history of other venous thrombosis and embolism; Z86.711 Personal history of pulmonary embolism; I25.2 Old myocardial infarction; Z95.0 Presence of cardiac pacemaker; Z79.01 Long term (current) use of anticoagulants; Z79.899 Other long term (current) drug therapy; M51.36 Other intervertebral disc degeneration, lumbar region; Z87.891 Personal history of nicotine dependence; M47.9 Spondylosis, unspecified; Z98.890 Other specified postprocedural states; E78.5 Hyperlipidemia, unspecified; H40.9 Unspecified glaucoma; N40.0 Benign prostatic hyperplasia without lower urinary tract symptoms; M06.9 Rheumatoid arthritis, unspecified; D64.9 Anemia, unspecified
CPT/HCPCS: 36415 ×3; 71045; 78451; 80053 ×3; 80061; 83036; 83690; 83735; 83880 ×2; 84443; 84484 ×2; 85025 ×2; 85379; 86140; 93005 ×2; 96374; 99285; A4641; G0378 ×2; J2270 ×4

== ENCOUNTER 2020-03-03 20:42 | Inpatient (IN) | payer MEDICARE, MEDICAID ==
[~2020-03-03] VITALS: Ht 172.7 cm; Wt 87.6 kg
[~2020-03-03 20:42] MED LIST changes: +METFORMIN HCL850 M1 ORAL
[2020-03-03 20:50] VITALS: BP 151/105
[2020-03-03] MEDS ORDERED: Acetaminophen 500mg (ES) tab ORAL ONE (21:00)
[2020-03-03] MEDS ORDERED: Nitroglycerin Subl 0.4mg tab SL PRN (21:00)
--- NOTE | 2020-03-03 21:02 | Emergency Room Report ---
History of Present Illness General Chief Complaint: Chest Pain Source: Patient Present Illness HPI Patient is a 64-year-old male past medical history of PE on Eliquis who presents to the ER complaining of left-sided chest pain that started 3 hours ago while talking to some people. He states that is associated with dizziness. He denies any fever or chills. He denies any shortness of breath. He denies any nausea or vomiting. He denies any abdominal pain. He denies any cough. He denies any lower extremity pain or edema. He states that he is compliant with his Eliquis. Allergies: Coded Allergies: HYDROMORPHONE (Verified Allergy, Unknown, 09/02/19) Uncoded Allergies: CONTRAST DYE (Allergy, Unknown, 03/15/19) IODINE CONTRAST (Allergy, Unknown, 09/26/19) COVID-19 Screening Contact w/high risk pt: No Recent Travel to affected area: No Experienced COVID-19 symptoms?: No COVID-19 symptoms experienced: Shortness of Breath COVID-19 Testing performed TODDLER GUIDE: No Patient History Reviewed Nursing Documentation: PMH: Agreed; PSxH: Agreed Nursing Documentation-PMH Hx Cardiac Problems: Yes Hx Hypertension: Yes Hx Pacemaker: Yes Hx Asthma: No Hx COPD: Yes Hx Diabetes: Yes Hx Cancer: No Hx Gastrointestinal Problems: No Hx Dialysis: No Hx Neurological Problems: No Hx Cerebrovascular Accident: No Hx Seizures: No Hx Headaches: Yes Review of Systems All Other Systems: negative except mentioned in HPI Physical Exam Vital Signs Date Time Temp Pulse Resp B/P (MAP) Pulse Ox O2 Delivery O2 Flow Rate FiO2 03/03/20 20:49 98.6 102 22 124/69 (87) 97 Room Air Sp02 EP Interpretation: reviewed, normal General Appearance: no apparent distress, alert, GCS 15, non-toxic Head: normocephalic, atraumatic Eyes: bilateral eye normal inspection, bilateral eye PERRL ENT: normal ENT inspection Neck: full range of motion, supple/symm/no masses Respiratory: chest non-tender, lungs clear, normal breath sounds, speaking full sentences Cardiovascular #1: regular rate, rhythm, no edema Gastrointestinal: normal bowel sounds, non tender, soft, non-distended, no guarding, no rebound Rectal: deferred Musculoskeletal: normal range of motion, no calf tenderness, no lower extremity edema Neurologic: general technician III-XII nml as tested, oriented x3 Psychiatric: no suicidal/homicidal ideation Skin: no rash Lymphatic: no adenopathy Medical Decision Making Diagnostic Impression: Primary Impression: Acute coronary syndrome Additional Impression: Anemia ER Course Patient given sublingual nitro which helped improve his pain. Patient already on blood thinners for his PE. Patient's d-dimer is negative. Troponin negative x1. EKG demonstrates no ST elevation. Patient will be admitted for further treatment and evaluation.. Laboratory Tests Test 03/03/20 21:30 White Blood Count 7.0 K/UL (4.8-10.8) Red Blood Count 4.34 M/UL (4.70-6.10) L Hemoglobin 11.0 G/DL (14.2-18.0) L Hematocrit 35.9 % (42.0-52.0) L Mean Corpuscular Volume 83 FL (80-99) Mean Corpuscular Hemoglobin 25.4 PG (27.0-31.0) L Mean Corpuscular Hemoglobin Concent 30.7 G/DL (32.0-36.0) L Red Cell Distribution Width 16.3 % (11.6-14.8) H Platelet Count 195 K/UL (150-450) Mean Platelet Volume 11.1 FL (6.5-10.1) H Neutrophils (%) (Auto) 63.8 % (45.0-75.0) Lymphocytes (%) (Auto) 18.7 % (20.0-45.0) L Monocytes (%) (Auto) 11.8 % (1.0-10.0) H Eosinophils (%) (Auto) 4.6 % (0.0-3.0) H Basophils (%) (Auto) 1.1 % (0.0-2.0) Prothrombin Time 11.5 SEC (9.30-11.50) Prothrombin Time INR 1.0 (0.9-1.1) Activated Partial Thromboplast Time 29 SEC (23-33) D-Dimer 0.39 mg/L FEU (0.00-0.49) Sodium Level 140 MMOL/L (136-145) Potassium Level 3.9 MMOL/L (3.5-5.1) Chloride Level 105 MMOL/L (98-107) Carbon Dioxide Level 23 MMOL/L (21-32) Anion Gap 12 mmol/L (5-15) Blood Urea Nitrogen 14 mg/dL (7-18) Creatinine 1.3 MG/DL (0.55-1.30) Estimated Glomerular Filtration Rate > 60 mL/min (>60) Glucose Level 162 MG/DL (74-106) H Calcium Level 8.6 MG/DL (8.5-10.1) Magnesium Level 1.8 MG/DL (1.8-2.4) Total Bilirubin 0.3 MG/DL (0.2-1.0) Aspartate Amino Transferase (AST) 21 U/L (15-37) Alanine Aminotransferase (ALT) 26 U/L (12-78) Alkaline Phosphatase 84 U/L (46-116) Troponin I 0.000 ng/mL (0.000-0.056) Pro-B-Type Natriuretic Peptide 95 pg/mL (0-125) Total Protein 7.1 G/DL (6.4-8.2) Albumin 3.5 G/DL (3.4-5.0) Globulin 3.6 g/dL Albumin/Globulin Ratio 1.0 (1.0-2.7) EKG Diagnostic Results EKG Time: 21:05 EP Interpretation: Roseann May MD Rate: normal - 87 bpm Rhythm: NSR ST Segments: no acute changes ASA given to the pt in ED: No Rhythm Strip Diag. Results Rhythm Strip Time: 21:02 EP Interpretation: yes - Roseann May MD Rate: 87 bpm Rhythm: NSR, no PVC's, no ectopy Chest X-Ray Diagnostic Results Chest X-Ray Diagnostic Results : Chest X-Ray Ordered: Yes # of Views/Limited/Complete: 1 View Indication: Chest Pain EP Interpretation: Yes Interpretation: no consolidation, no effusion, no pneumothorax, no acute cardiopulmonary disease Impression: No acute disease Electronically Signed by: Roseann May MD Last Vital Signs Date Time Temp Pulse Resp B/P (MAP) Pulse Ox O2 Delivery O2 Flow Rate FiO2 03/03/20 20:49 98.6 102 22 124/69 (87) 97 Room Air Disposition: ADMITTED INPATIENT - telemetry Condition: Critical Signed Out To: Dr. Tavares, at 2200 Additional Instructions: Please note that this report is being documented using Arch[employer] technology. This can lead to erroneous entry secondary to incorrect interpretation by the dictating instrument. Roseann May M.D. Mar 03, 2020 21:02
[2020-03-03 21:49] LABS: BASOPHILS % (AUTO) 1.1 % (0.0-2.0); EOSINOPHILS % (AUTO) 4.6 % (0.0-3.0); HEMATOCRIT 35.9 % (42.0-52.0); LYMPHOCYTES % (AUTO) 18.7 % (20.0-45.0); MEAN CORPUSCULAR VOLUME 83 FL (80-99); MONOCYTES % (AUTO) 11.8 % (1.0-10.0); NEUTROPHILS % (AUTO) 63.8 % (45.0-75.0); PLATELET COUNT 195 K/UL (150-450); RED BLOOD COUNT 4.34 M/UL (4.70-6.10); RED CELL DISTRIBUTION WIDTH 16.3 % (11.6-14.8)
[2020-03-03 21:54] LABS: ANION GAP 12 mmol/L (5-15); BLOOD UREA NITROGEN 14 mg/dL (7-18); CALCIUM 8.6 MG/DL (8.5-10.1); CARBON DIOXIDE 23 MMOL/L (21-32); CHLORIDE 105 MMOL/L (98-107); CREATININE 1.3 MG/DL (0.55-1.30); POTASSIUM 3.9 MMOL/L (3.5-5.1); SODIUM 140 MMOL/L (136-145)
[2020-03-03 22:03] LABS: ALANINE AMINOTRANSFERASE 26 U/L (12-78); ALBUMIN 3.5 G/DL (3.4-5.0); ALKALINE PHOSPHATASE 84 U/L (46-116); ASPARTATE AMINO TRANSFERASE 21 U/L (15-37); BILIRUBIN,TOTAL 0.3 MG/DL (0.2-1.0)
[2020-03-03 22:40] VITALS: BP 128/75
[2020-03-03] MEDS: Nitroglycerin 2% oint pkt TOPIC ONE ×2 (22:46→22:51)
[2020-03-03] MEDS: Aspirin Baby 81mg ORAL ONE ×2 (22:46→22:50)
[2020-03-03 23:30] VITALS: BP 128/81
[2020-03-04 00:40] VITALS: BP 130/72
[2020-03-04] MEDS ORDERED: Milk of Magnesia 30ml Ud ORAL PRN (01:15)
[2020-03-04] MEDS ORDERED: Zolpidem 5mg tab ORAL PRN (01:15)
[2020-03-04 04:00] VITALS: BP 126/72
[2020-03-04] MEDS ORDERED: Brimonidine 0.2% Opth Sol BOTH EYES SCH ×2 (06:00→08:00)
[2020-03-04] MEDS ORDERED: NovoLOG Insulin Flexpen SUBQ SCH (06:30)
[2020-03-04] MEDS: NovoLOG Insulin Flexpen SUBQ SCH ×2 (06:30→11:30)
[2020-03-04 07:56] LABS: ALANINE AMINOTRANSFERASE 33 U/L (12-78); ALBUMIN 3.2 G/DL (3.4-5.0); ALBUMIN/GLOBULIN RATIO 0.9 (1.0-2.7); ALKALINE PHOSPHATASE 80 U/L (46-116); ANION GAP 11 mmol/L (5-15); ASPARTATE AMINO TRANSFERASE 28 U/L (15-37); BILIRUBIN,TOTAL 0.2 MG/DL (0.2-1.0); BLOOD UREA NITROGEN 13 mg/dL (7-18); CALCIUM 8.4 MG/DL (8.5-10.1); CARBON DIOXIDE 24 MMOL/L (21-32); CHLORIDE 107 MMOL/L (98-107); CHOLESTEROL 100 MG/DL (< 200); CREATINE KINASE 65 U/L (26-308); CREATININE 1.1 MG/DL (0.55-1.30); HDL CHOLESTEROL 37 MG/DL (40-60); POTASSIUM 3.8 MMOL/L (3.5-5.1); SODIUM 142 MMOL/L (136-145); TRIGLYCERIDES 102 MG/DL (30-150)
[2020-03-04 08:00] VITALS: BP 114/51
[2020-03-04] MEDS ORDERED: Aspirin Baby 81mg ORAL SCH (09:00)
[2020-03-04] MEDS ORDERED: Eliquis 5mg tablet ORAL SCH (09:00)
[2020-03-04] MEDS ORDERED: Cosopt Opth Soln 10 mL Btl BOTH EYES SCH (09:00)
[2020-03-04 11:49] VITALS: BP 150/93
--- NOTE | 2020-03-04 13:44 | History and Physical Report ---
DATE OF ADMISSION: 03/03/2020 REASON FOR ADMISSION: Chest pain. HISTORY OF PRESENT ILLNESS: This is a 64-year-old male, who is known to me from prior evaluations at other facilities. He has a known history of pulmonary embolus and is on chronic anticoagulation with apixaban for which he claims compliance. He notes left-sided chest pain 3 hours ago while just talking and not stressing himself, he felt somewhat dizzy, but denies any palpitations or shortness of breath. No shocks from his [employer] [facility] permanent pacemaker. The patient states he was at [facility] last week and had similar presentation. He was told to get a stress test there, but the machine was not functional. He was discharged with outpatient followup. The patient had a cardiac catheterization at [facility] in earlier this year that was performed by Dr. Anthony. I reviewed the report. He did not have any flow-limiting coronary disease and the patient is aware of this. The patient did not give this information to the doctors at [facility]. PAST MEDICAL HISTORY: Hyperlipidemia, hypertension, pulmonary embolus, COPD, prostatic hypertrophy, glaucoma, type 2 diabetes mellitus, history of pulmonary embolism and prior pulmonary embolectomy. ALLERGIES: Hydromorphone, iodine. SOCIAL HISTORY: Notable for smoking. Denies alcohol or substance abuse. REVIEW OF SYSTEMS: A 10-point review of systems performed, all negative other than noted above. PHYSICAL EXAMINATION: VITAL SIGNS: Blood pressure 124/69, pulse 102, respirations 22, afebrile. Monitored rhythm sinus tachycardia. LUNGS: Clear. CARDIAC: Regular. No murmur. ABDOMEN: Soft. EXTREMITIES: No edema. No tremor. LABORATORY AND DIAGNOSTIC DATA: White count 7, hemoglobin 11. Sodium 140, potassium 3.9, bicarb 23, BUN 14, creatinine 1.3, glucose 162. Albumin 3.5. The EKG, sinus rhythm at 87 beats per minute with no acute ST abnormalities. Chest x-ray with no acute process. Troponin is 0 and natriuretic peptide is 95, which is normal. IMPRESSION: 1. Non-cardiac chest pain, possible pleuritic component due to pulmonary emboli or musculoskeletal component. 2. History of non flow limiting coronary disease based on recent cardiac catheterization, permanent pacemaker with stable function as it was interrogated in the past few months. 3. History of pain medication dependence and medication-seeking behavior. 4. History of pulmonary emboli and embolectomy on chronic anticoagulation. 5. Type 2 diabetes mellitus. PLAN: 1. Admit for observation. 2. Cardiac monitoring. 3. Continue current medication. 4. Symptom-guided pain control. 5. Anticipate discharge less than 24 hours based on known historical data and current presentation and stability for outpatient followup. Bakari Tavares M.D. DR: MARIELA JOB#: [id number] CC:
--- NOTE | 2020-03-04 13:50 | Diagnostic Imaging Report ---
Indication: Chest pain Technique: Portable AP view of the chest Comparison: 01/11/2020 Findings: Heart size and mediastinal contours are stable. Again there is evidence of prior cardiac surgery with median sternotomy. There is an indwelling dual-lead pacemaker with lead tips projecting over the right atrium and ventricle-unchanged compared to the prior exam. There is unchanged elevation of the left hemidiaphragm. There is no focal airspace consolidation. No pleural effusion, pneumothorax or radiographic evidence to suggest pulmonary edema. Osseous structures appear no acute abnormality. IMPRESSION: No radiographic evidence of acute cardiopulmonary disease. Evidence of prior surgery with median sternotomy. Indwelling pacemaker.
[2020-03-04] MEDS ORDERED: Latanoprost 0.005% Opth 2.5ml Soln BOTH EYES SCH (21:00)
[2020-03-04] MEDS ORDERED: Tamsulosin 0.4mg cap ORAL SCH (21:00)
--- NOTE | 2020-03-05 00:42 | Cardiology Progress Note ---
Subjective DATE OF SERVICE: Mar 04, 2020 Long discussion with patient; recovery much faster than anticipated. He was made aware of his prior cardiac cath report at [facility] this year; it revealed no flow limiting CAD. He is requesting pain meds. He did not want to continue speaking with me, once he was told that narcotics were not indicated. Objective Last 24 Hour Vital Signs Date Time Temp Pulse Resp B/P (MAP) Pulse Ox O2 Delivery O2 Flow Rate FiO2 03/04/20 12:00 72 03/04/20 11:49 97.7 79 21 150/93 (112) 97 03/04/20 08:53 Room Air 03/04/20 08:00 65 03/04/20 08:00 97.7 69 20 114/51 (72) 97 03/04/20 04:00 97.8 72 18 126/72 (90) 100 03/04/20 04:00 75 03/04/20 01:11 Room Air 03/04/20 00:40 83 03/04/20 00:40 80 18 131/80 99 Room Air 03/04/20 00:40 98.0 81 18 130/72 (91) 100 HEENT: normal ENT inspection RHYTHM: NSR, PACs, other - paced LUNGS: lungs clear bilaterally CARDIAC: normal rate, regular rhythm, normal S1 and S2 ABDOMEN: normal bowel sounds, non tender, soft, no organomegaly EXTREMITIES: normal range of motion, No edema Laboratory Tests Test 03/04/20 05:38 03/04/20 06:35 Sodium Level 142 MMOL/L (136-145) Potassium Level 3.8 MMOL/L (3.5-5.1) Chloride Level 107 MMOL/L (98-107) Carbon Dioxide Level 24 MMOL/L (21-32) Anion Gap 11 mmol/L (5-15) Blood Urea Nitrogen 13 mg/dL (7-18) Creatinine 1.1 MG/DL (0.55-1.30) Estimat Glomerular Filtration Rate > 60 mL/min (>60) Glucose Level 132 MG/DL (74-106) H Uric Acid 4.9 MG/DL (2.6-7.2) Calcium Level 8.4 MG/DL (8.5-10.1) L Total Bilirubin 0.2 MG/DL (0.2-1.0) Aspartate Amino Transf (AST/SGOT) 28 U/L (15-37) Alanine Aminotransferase (ALT/SGPT) 33 U/L (12-78) Alkaline Phosphatase 80 U/L (46-116) Total Creatine Kinase 65 U/L (26-308) Troponin I 0.000 ng/mL (0.000-0.056) Pro-B-Type Natriuretic Peptide 102 pg/mL (0-125) Total Protein 6.7 G/DL (6.4-8.2) Albumin 3.2 G/DL (3.4-5.0) L Globulin 3.5 g/dL Albumin/Globulin Ratio 0.9 (1.0-2.7) L Triglycerides Level 102 MG/DL (30-150) Cholesterol Level 100 MG/DL (< 200) LDL Cholesterol 65 mg/dL (<100) HDL Cholesterol 37 MG/DL (40-60) L Cholesterol/HDL Ratio 2.7 (3.3-4.4) L Thyroid Stimulating Hormone (TSH) 1.156 uiU/mL (0.358-3.740) POC Whole Blood Glucose 138 MG/DL (74-106) H Assessment/Plan Assessment/Plan Non cardiac chest pain Hx pulmonary embolism with embolectomy PAFib pacemaker Narcotic analgesic abuse Plan: stable for outpatient management Meds reviewed - including full anticoagulation with eliquis Outpatient pacemaker interrogation in 3 months Bakari Tavares MD Mar 05, 2020 00:42
--- NOTE | 2020-03-05 12:24 | Cardiology Report ---
APPROVED REPORT EKG Measurement Heart [id number] <Conclusion> Normal sinus rhythm Possible Left atrial enlargement Borderline ECG
--- NOTE | 2020-03-05 13:09 | Cardiology Report ---
APPROVED REPORT EXAM: Two-dimensional and M-mode echocardiogram with Doppler and color Doppler. INDICATION Atherosclerosis M-Mode DIMENSIONS IVSd1.0 (0.7-1.1cm)Left Atrium (MM)3.6 (1.6-4.0cm) LVDd3.8 (3.5-5.6cm)Aortic Root3.1 (2.0-3.7cm) PWd1.3 (0.7-1.1cm)Aortic Cusp Exc.2.2 (1.5-2.0cm) IVSs1.9 cmEPSS0.5 (>1.0cm) LVDs2.3 (2.5-4.0cm) PWs2.0 cm <Conclusion> Normal left ventricular chamber size, systolic function and wall motion. Left ventricular ejection fraction estimated to be 55-60%. No evidence of left ventricular hypertrophy. No evidence of pericardial effusion. All other cardiac chamber sizes are within normal limits. Focal aortic valve sclerosis with adequate cusp excursion. Thickened mitral valve leaflets with normal excursion. Mitral annulus and aortic root calcification. Normal pulmonic valve structure. Normal tricuspid valve structure. IVC at normal size with physiologic collapse. Pacemaker wire present in the right side chambers. A color flow and spectral Doppler study was performed and revealed: Trace aortic regurgitation. Mitral diastolic velocities of E & A equalization & Tissue Doppler Imaging suggest mildly reduced left ventricular relaxation c/w impaired relaxation diastolic dysfunction. Trace mitral regurgitation. Mild to moderate tricuspid regurgitation. Tricuspid systolic velocities suggests peak right ventricular systolic pressure of 37 mmHg,consistent with mildpulmonary hypertension.
--- NOTE | 2020-03-08 14:47 | Discharge Summary ---
Discharge Summary Discharge Summary _ DATE OF ADMISSION: 03/03/2020 DATE OF DISCHARGE: 03/04/2020 DISCHARGED BY: Dr Tavares REASON FOR ADMISSION: 64 years old male with past medical history of pulmonary emboli, status post pulmonary embolectomy, on chronic anticoagulation with apixaban, hypertension, status post permanent pacemaker ( recently interrogated , showed normal functioning), COPD, hyperlipidemia, BPH, glaucoma, diabetes mellitus type 2, presented to emergency department with left-sided chest pain. Chest pain started while he was talking and was not stressing himself. Patient reported mild dizziness , but denied palpitations or shortness of breath. He denied shocks from his [employer] permanent pacemaker. Upon evaluation vital signs were stable. Laboratory work-up revealed no leukocytosis ,hemoglobin 11, hematocrit 35.9 ,platelet count 195. D-dimer 0.39 Stable electrolytes . BUN 14, creatinine 1.3. Glucose 162. Stable LFT. Troponin negative , pro BNP 95 . EKG revealed sinus rhythm , no acute ischemic changes. Chest x-ray revealed no acute cardiopulmonary pathology. Urine toxicology screen was negative. Patient admitted to telemetry floor for further management. HOSPITAL COURSE: Patient admitted to telemetry floor for observation. Serial troponin were negative . EKG revealed no acute ischemic changes . Patient was ruled out for acute myocardial infarction. Echocardiogram demonstrated preserved ejection fraction 55 to 60%. No evidence of left ventricular hypertrophy. No evidence of pericardial effusion. Right ventricular systolic pressure of 37 consistent with mild pulmonary hypertension. Home medication continued, including aspirin , Eliquis and statin. Lipid panel was stable. Nitroglycerin was on board as needed. Eyedrops for glaucoma continued. Flomax and Proscar resumed. Blood sugar was managed with metformin. Pain management was addressed as needed. Chest pain was noncardiac, possibly with pleuritic component, given history of pulmonary emboli or musculoskeletal component. Chest pain resolved. Due to rapid and unexpected improvement in patient condition , patient was discharged in one day. FINAL DIAGNOSES: Noncardiac chest pain ( possibly pleuritic component given history of pulmonary emboli or musculoskeletal component) History of [id number] coronary artery disease (based on recent catheterization) Permanent pacemaker , stable function ( interrogated few months ago) Pain medication dependence with pain medication seeking behavior History of pulmonary emboli , status post embolectomy (on chronic anticoagulation ) DISCHARGE MEDICATIONS: See Medication Reconciliation list. DISCHARGE INSTRUCTIONS: Patient was discharged home. Follow-up with a primary care provider in 1 to 2 weeks. I have been assigned to dictate discharge summary for this account. I was not involved in the patient's management. Angelica Prakash NP Mar 08, 2020 14:47
== END 2020-03-04 13:18 | disposition home or self-care (01) | DRG 204 ==
LOC: EMR 21:24 → 2E 21:49 → EDBEDREQ 23:02
DX: R07.1 Chest pain on breathing (principal); R07.89 Other chest pain; Z86.711 Personal history of pulmonary embolism; E11.9 Type 2 diabetes mellitus without complications; Z79.01 Long term (current) use of anticoagulants; Z88.6 Allergy status to analgesic agent; Z91.041 Radiographic dye allergy status; Z95.0 Presence of cardiac pacemaker; E78.5 Hyperlipidemia, unspecified; I10 Essential (primary) hypertension; J44.9 Chronic obstructive pulmonary disease, unspecified; N40.0 Benign prostatic hyperplasia without lower urinary tract symptoms; H40.9 Unspecified glaucoma; Z79.82 Long term (current) use of aspirin; I25.10 Atherosclerotic heart disease of native coronary artery without angina pectoris; Z76.5 Malingerer [conscious simulation]; I48.0 Paroxysmal atrial fibrillation
CPT/HCPCS: 36415; 71045; 80053; 80061; 80307; 82550; 82962; 83735; 83880; 84443; 84484; 84550; 85025; 85379; 85610; 85730; 93005; 93306; 99285; J1815

== ENCOUNTER 2020-03-12 19:56 | Emergency (ER) | payer MEDICARE, MEDICAID ==
[~2020-03-12] VITALS: Ht 172.7 cm; Wt 93.0 kg
--- NOTE | 2020-03-12 20:10 | NUR ---
ED Nurse Note: Pt walked in c/o substernal chest pain since around 1630. 8/10 pressure and discomfort pain. Pt stated he was on a long car ride and pain occured shortly afterwards. Pt hx of PE and is on eliquis. changed into gown; attached to monitor. patient ao4 with no acute signs of distress. vitals stable. all safety measures met.
--- NOTE | 2020-03-12 20:10 | Emergency Room Report ---
History of Present Illness General Chief Complaint: Chest Pain Present Illness HPI 64-year-old male with history of embolectomy for pulmonary embolism years ago, atrial fibrillation with left upper chest pacemaker in place, on Eliquis, here with left-sided chest pain. Patient said that earlier this afternoon approximately 5 hours prior to coming to the emergency department he had sudden onset of substernal and left-sided chest pressure. Patient has been seen here in this emergency department and other emergency department throughout the city for the same complaint many times in the past. He describes his pain is pressure-like, located in the left chest, otherwise does not radiate. No headaches, vision changes, fevers, chills, cough, other chest pain, palpitations, shortness of breath, back pain, abdominal pain, nausea, vomiting, diarrhea, dysuria. He says that he has been compliant with his Eliquis. Allergies: Coded Allergies: HYDROMORPHONE (Verified Allergy, Unknown, 09/02/19) Uncoded Allergies: CONTRAST DYE (Allergy, Unknown, 03/15/19) IODINE CONTRAST (Allergy, Unknown, 09/26/19) COVID-19 Screening Contact w/high risk pt: No Recent Travel to affected area: No Experienced COVID-19 symptoms?: No COVID-19 symptoms experienced: Shortness of Breath COVID-19 Testing performed BAR CATCHER: No Nursing Documentation-PMH Hx Cardiac Problems: Yes - PE Hx Hypertension: Yes Hx Pacemaker: Yes - 2018 Hx Asthma: No Hx COPD: Yes Hx Diabetes: Yes Hx Cancer: No Hx Gastrointestinal Problems: No Hx Dialysis: No Hx Neurological Problems: No Hx Cerebrovascular Accident: No Hx Seizures: No Hx Headaches: Yes Review of Systems All Other Systems: negative except mentioned in HPI Physical Exam Vital Signs Date Time Temp Pulse Resp B/P (MAP) Pulse Ox O2 Delivery O2 Flow Rate FiO2 03/12/20 20:02 98.8 86 16 107/72 (84) 98 Room Air Sp02 EP Interpretation: reviewed, normal General Appearance: no apparent distress, alert, non-toxic Head: normocephalic, atraumatic Eyes: bilateral eye normal inspection, bilateral eye PERRL ENT: hearing grossly normal, normal pharynx, no angioedema, normal voice Neck: full range of motion, supple/symm/no masses Respiratory: chest non-tender, lungs clear, normal breath sounds, speaking full sentences Cardiovascular #1: regular rate, rhythm, no edema, other - Midline sternotomy scar and left upper chest pacemaker in place Cardiovascular #2: 2+ carotid (R), 2+ carotid (L), 2+ radial (R), 2+ radial (L), 2+ dorsalis pedis (R), 2+ dorsalis pedis (L) Gastrointestinal: normal bowel sounds, non tender, soft, non-distended, no guarding, no rebound Rectal: deferred Genitourinary: normal inspection, no CVA tenderness Musculoskeletal: back normal, normal range of motion, calf tenderness, gait/station normal, non-tender Neurologic: alert, motor strength/tone normal, oriented x3, sensory intact, responsive, speech normal Psychiatric: judgement/insight normal, memory normal, mood/affect normal, no suicidal/homicidal ideation Reflexes: 3+ bicep (R), 3+ bicep (L), 3+ tricep (R), 3+ tricep (L), 3+ knee (R), 3+ knee (L) Lymphatic: no adenopathy Medical Decision Making Diagnostic Impression: Primary Impression: Chest pain Additional Impressions: Hx pulmonary embolism HTN (hypertension) History of pacemaker Smoking history ER Course Laboratory Tests Test 03/12/20 20:15 White Blood Count 7.9 K/UL (4.8-10.8) Red Blood Count 4.82 M/UL (4.70-6.10) Hemoglobin 12.2 G/DL (14.2-18.0) L Hematocrit 39.4 % (42.0-52.0) L Mean Corpuscular Volume 82 FL (80-99) Mean Corpuscular Hemoglobin 25.3 PG (27.0-31.0) L Mean Corpuscular Hemoglobin Concent 30.9 G/DL (32.0-36.0) L Red Cell Distribution Width 16.0 % (11.6-14.8) H Platelet Count 189 K/UL (150-450) Mean Platelet Volume 10.2 FL (6.5-10.1) H Neutrophils (%) (Auto) 71.4 % (45.0-75.0) Lymphocytes (%) (Auto) 15.6 % (20.0-45.0) L Monocytes (%) (Auto) 9.1 % (1.0-10.0) Eosinophils (%) (Auto) 2.7 % (0.0-3.0) Basophils (%) (Auto) 1.3 % (0.0-2.0) Sodium Level 137 MMOL/L (136-145) Potassium Level 3.9 MMOL/L (3.5-5.1) Chloride Level 104 MMOL/L (98-107) Carbon Dioxide Level 24 MMOL/L (21-32) Anion Gap 9 mmol/L (5-15) Blood Urea Nitrogen 17 mg/dL (7-18) Creatinine 1.5 MG/DL (0.55-1.30) H Estimated Glomerular Filtration Rate 57.4 mL/min (>60) Glucose Level 246 MG/DL (74-106) H Calcium Level 9.5 MG/DL (8.5-10.1) Total Bilirubin 0.3 MG/DL (0.2-1.0) Aspartate Amino Transferase (AST) 19 U/L (15-37) Alanine Aminotransferase (ALT) 25 U/L (12-78) Alkaline Phosphatase 84 U/L (46-116) Troponin I 0.000 ng/mL (0.000-0.056) Total Protein 7.4 G/DL (6.4-8.2) Albumin 4.1 G/DL (3.4-5.0) Globulin 3.3 g/dL Albumin/Globulin Ratio 1.2 (1.0-2.7) Microbiology Date/Time Source Procedure Growth Status 03/12/20 20:58 Nasopharynx SARS-CoV-2 RdRp Gene Assay - Final Complete Procedure: XRAY Chest 1v EXAM: XR Chest, 1 View CLINICAL HISTORY: CP TECHNIQUE: Frontal view of the chest. COMPARISON: 03/03/2020. FINDINGS: Lungs: Unremarkable. No consolidation. Pleural space: Unremarkable. No pneumothorax. Heart: Cardiomediastinal silhouette unremarkable. Mediastinum: See above. Bones/joints: Sternotomy wires are noted in place. Osteopenia. Gentle dextro scoliosis of the thoracic spine. Tubes, lines and devices: Pacemaker overlies the left chest. Upper abdomen: Elevation of the left hemidiaphragm. Other findings: Mild hypoaeration. IMPRESSION: 1. Hypoaeration. 2. Osteopenia. 3. No active disease. 64-year-old male here with chest pain. Patient was hemodynamically stable in the emergency department and neurovascularly intact. He was given aspirin on arrival. EKG was unremarkable. Chest x-ray normal, CBC and CMP and troponin all unremarkable as well. Discussed the case with the patient's admitting physician who admitted the patient several days ago. We reviewed the patient's recent tests including his negative cardiac catheterization at an outside [facility] a few months ago. I discussed these findings with the patient including the fact that he was here in the emergency department and admitted to the hospital a few days ago. Patient agreed that he can follow-up as an outpatient. Given strict return precautions to come back to the emergency department if he has any worsening chest pain, palpitations, shortness of breath. He expressed understanding and was discharged. EKG: NSR, no ischemia, intervals WNL. No ectopy. 77bpm Rhythm strip: patient monitored for arrhythmias - no malignant dysrhythmias, runs of PVCs, nor pauses noted Last Vital Signs Date Time Temp Pulse Resp B/P (MAP) Pulse Ox O2 Delivery O2 Flow Rate FiO2 03/12/20 20:02 98.8 86 16 107/72 (84) 98 Room Air Tavo Duran M.D. Mar 12, 2020 20:10
[2020-03-12 20:15] VITALS: BP 107/72
--- NOTE | 2020-03-12 20:15 | NUR ---
ED Nurse Note: IV access established. blood collected; sent down to lab. unable to collect urine at this time; patient states he will provide when able; refused straight cath. ekg done at bedside.
[2020-03-12] MEDS ORDERED: Aspirin Baby 81mg ORAL ONE (20:30)
[2020-03-12 20:43] LABS: BASOPHILS % (AUTO) 1.3 % (0.0-2.0); EOSINOPHILS % (AUTO) 2.7 % (0.0-3.0); HEMATOCRIT 39.4 % (42.0-52.0); HEMOGLOBIN 12.2 G/DL (14.2-18.0); LYMPHOCYTES % (AUTO) 15.6 % (20.0-45.0); MEAN CORPUSCULAR VOLUME 82 FL (80-99); MONOCYTES % (AUTO) 9.1 % (1.0-10.0); NEUTROPHILS % (AUTO) 71.4 % (45.0-75.0); PLATELET COUNT 189 K/UL (150-450); RED BLOOD COUNT 4.82 M/UL (4.70-6.10); WHITE BLOOD COUNT 7.9 K/UL (4.8-10.8)
--- NOTE | 2020-03-12 20:48 | Diagnostic Imaging Report ---
EXAM: XR Chest, 1 View CLINICAL HISTORY: CP TECHNIQUE: Frontal view of the chest. COMPARISON: 03/03/2020. FINDINGS: Lungs: Unremarkable. No consolidation. Pleural space: Unremarkable. No pneumothorax. Heart: Cardiomediastinal silhouette unremarkable. Mediastinum: See above. Bones/joints: Sternotomy wires are noted in place. Osteopenia. Gentle dextro scoliosis of the thoracic spine. Tubes, lines and devices: Pacemaker overlies the left chest. Upper abdomen: Elevation of the left hemidiaphragm. Other findings: Mild hypoaeration. IMPRESSION: 1. Hypoaeration. 2. Osteopenia. 3. No active disease.
[2020-03-12 20:51] LABS: CALCIUM 9.5 MG/DL (8.5-10.1); CREATININE 1.5 MG/DL (0.55-1.30); POTASSIUM 3.9 MMOL/L (3.5-5.1)
[2020-03-12 20:55] LABS: ALBUMIN 4.1 G/DL (3.4-5.0); ALBUMIN/GLOBULIN RATIO 1.2 (1.0-2.7); BILIRUBIN,TOTAL 0.3 MG/DL (0.2-1.0)
--- NOTE | 2020-03-12 20:58 | NUR ---
ED Nurse Note: covid and mrsa swab collected; sent down to lab. patient refused cre vre swab. discussed plan of care with patient; aware of pending admission.
[2020-03-12 21:28] VITALS: BP 132/85
--- NOTE | 2020-03-12 21:45 | NUR ---
ED Nurse Note: ermd at bedside. per ermd and previous admitting doctor, pt to be discharged and admission cancelled. pt verbalized understanding .
[2020-03-12 21:54] VITALS: BP 132/85
--- NOTE | 2020-03-12 21:54 | NUR ---
Note kristianfelisha in EDM - 03/12/20 at 2155 by LCRISOSTOM ER DISCHARGE NOTE: Patient is cleared to be discharged per ERMD, pt is aox4, on room air, with stable vital signs. pt was given dc and prescription instructions, pt was able to verbalize understanding, pt id band and iv site removed without complications. pt is able to ambulate with steady gait. pt took all belongings.
--- NOTE | 2020-03-12 21:55 | NUR ---
ER DISCHARGE NOTE: Patient is cleared to be discharged per ERMD, pt is aox4, on room air, with stable vital signs. pt was given dc instructions, pt was able to verbalize understanding, pt id band and iv site removed without complications. pt is able to ambulate with steady gait. pt took all belongings.
--- NOTE | 2020-03-14 14:50 | Cardiology Report ---
APPROVED REPORT EKG Measurement Heart [id number] <Conclusion> Normal sinus rhythm Possible Left atrial enlargement Borderline ECG
== END 2020-03-12 21:56 | disposition home or self-care (01) ==
LOC: EMR 20:40 → CANBEDREQ 21:51 → EMR 21:56
DX: R07.9 Chest pain, unspecified (principal); I10 Essential (primary) hypertension; J44.9 Chronic obstructive pulmonary disease, unspecified; E11.9 Type 2 diabetes mellitus without complications; Z95.0 Presence of cardiac pacemaker; Z87.891 Personal history of nicotine dependence; Z86.711 Personal history of pulmonary embolism; Z88.5 Allergy status to narcotic agent; Z91.041 Radiographic dye allergy status
CPT/HCPCS: 36415; 71045; 80053; 84484; 85025; 93005; 99284; U0002

== ENCOUNTER 2020-04-07 12:40 | Emergency (ER) | payer MEDICARE, MEDICAID ==
[~2020-04-07] VITALS: Ht 172.7 cm; Wt 88.9 kg
--- NOTE | 2020-04-07 13:35 | Emergency Room Report ---
History of Present Illness General Chief Complaint: Multiple Trauma/Fall Source: Patient Present Illness HPI 65-year-old male with history of embolectomy for pulmonary embolism years ago, atrial fibrillation with left upper chest pacemaker in place, on Eliquis, Ambulates into the to the ED c/o 01/25 in severity "Left sided body pain" describing pain from the left side of the neck down to his left knee. He is poorly cooperative with HPI and ROS questions. S/p mechanical fall out of bed 3 days ago. Pt. reports he "bruised his ribs" and reiterates that he has hx of PE and pacemaker and wants them checked as well. Pt. has longstanding hx here in the ED with frequent visits for Chest pain in addition to frequent visits to other local ED's as well. Pt. denies hitting his head or having a loss of consciousness. He denies midline neck pain. He reports some pain midline to the thoracic spine and left paraspinal musculature. He reports he has pain in the left arm that he describes as soreness. He reports he is able to bear weight and walk without assistance. Pt. denies open wounds or bleeding. Denies numbness tingling or loss of sensation or gross motor movements of the extremities, incontinence of bowel or bladder. Denies dizziness, palpitations, AMS, visual changes, weakness or a sudden severe headache. He denies hemoptysis. He reports he has been compliant with his medications including Eliquis. 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 COVID-19 Screening: Negative COVID-19 COVID-19 [place] [facility] [place] Past Medical History: see triage record, old chart reviewed, AFib, other - PE Past Surgical History: pacemaker Pertinent Family History: unable to obtain Reviewed Nursing Documentation: PMH: Agreed; PSxH: Agreed Nursing Documentation-PMH Past Medical History: No History, Except For Hx Cardiac Problems: Yes - PE Hx Hypertension: Yes Hx Pacemaker: Yes - 2018 Hx Asthma: No Hx COPD: Yes Hx Diabetes: Yes Hx Cancer: No Hx Gastrointestinal Problems: No Hx Dialysis: No Hx Neurological Problems: No Hx Cerebrovascular Accident: No Hx Seizures: No Hx Headaches: Yes Review of Systems All Other Systems: negative except mentioned in HPI - Pt. is poorly cooperat vee/ reluctant to provide much detail to HPI and ROS questions. Physical Exam Vital Signs Date Time Temp Pulse Resp B/P (MAP) Pulse Ox O2 Delivery O2 Flow Rate FiO2 04/07/20 12:51 98.2 80 18 115/68 (84) 96 Room Air Medical Decision Making PA Attestation Dr. Fierro is my supervising Physician whom patient management has been discussed with. Diagnostic Impression: Primary Impression: Contusion of rib on left side Qualified Codes: S20.212A - Contusion of left front wall of thorax, initial encounter Additional Impressions: Leg pain, left Knee pain, left Qualified Codes: M25.562 - Pain in left knee Contusion of clavicular region Back pain Qualified Codes: M54.6 - Pain in thoracic spine ER Course 65-year-old male with history of embolectomy for pulmonary embolism years ago, atrial fibrillation with left upper chest pacemaker in place, on Eliquis, Ambulates into the to the ED c/o 01/25 in severity "Left sided body pain" describing pain from the left side of the neck down to his left knee. He is poorly cooperative with HPI and ROS questions. S/p mechanical fall out of bed 3 days ago. Pt. reports he "bruised his ribs" and reiterates that he has hx of PE and pacemaker and wants them checked as well. Pt. has longstanding hx here in the ED with frequent visits for Chest pain in addition to frequent visits to other local ED's as well. Pt. denies hitting his head or having a loss of consciousness. He denies midline neck pain. He reports some pain midline to the thoracic spine and left paraspinal musculature. He reports he has pain in the left arm that he describes as soreness. He reports he is able to bear weight and walk without assistance. Pt. denies open wounds or bleeding. Denies numbness tingling or loss of sensation or gross motor movements of the extremities, incontinence of bowel or bladder. Denies Palpitations, AMS, Changes in Vision, weakness or a sudden severe headache. He denies hemoptysis. He reports he has been compliant with his medications including Eliquis. Ddx considered but are not limited to Fracture, dislocation, contusion, Sprain/Strain/Spasm, rib contusion, personality disorder just to name a few. Vital signs: are WNL, pt. is afebrile. H&PE are most consistent with musculoskeletal injury will perform imaging to r/o fractures/dislocations. Pt. is NAD, non-toxic in appearance. ambulating around the ED and sitting up on his own with out assistance. He does not demonstrate increased respiratory effort or difficulty with respirations. Pt. is not grimacing in pain at any time during the exam or during passive evaluation. PE does not demonstrate high suspicion for PE, however pt. is adamant that he be evaluated for this as he has had hx of one in the past that began as CP, -- low suspicion as pt. onset of symptoms occurred s/p traumatic fall and pt. has been compliant on Eliquis. Pt. also have IVC filter. ORDERS: -Troponin: Unremarkable - EKG: Unremarkable, NSR no irregularities to suggest pacemaker malfunction. -PT/PTT: Unremarkable - D-Dimer: unremarkable -CT Chest, Abdomen and Pelvis without contrast: unremarkable - X-ray Left Knee - negative for fx, Dislocation, or significant soft tissue injury, per preliminary read in ED, and signed by JERRELL Feng, my supervising physician has reviewed, and agrees with my interpretation. ED INTERVENTIONS: - Pt. education. Upon reviewing discharge instructions, pt. verbalized his want to have his pacemaker interrogated. D/w pt. that this can effectively be done on an outpatient basis with his key holder as there is no emergent need to warrant interrogating his pacemaker. Pt became very upset. I suspect as this pt. 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 I kindly, reiterate with this patient that he ambulated into the ED on his own, NAD, and all his labs and imaging was normal, that he is stable to seek close outpatient follow up and appropriately use the healthcare system to have his pacemaker interrogated should he wish on a non-emergent basis. Pt. utilized multiple profanities, and was inturrupting me during my evaluation with other patients. Ultimately he left and refused to sign his DC paperwork and refused to accept his DC paperwork. DISCHARGE: At this time pt. is stable for d/c to home. Will provide printed patient care instructions, and any necessary prescriptions. Care plan and follow up instructions have been discussed with the patient prior to discharge. Labs Test 04/07/20 13:37 04/07/20 13:47 Prothrombin Time 10.7 SEC (9.30-11.50) Prothromb Time International Ratio 1.0 (0.9-1.1) Activated Partial Thromboplast Time 25 SEC (23-33) Troponin I 0.000 ng/mL (0.000-0.056) D-Dimer 0.46 mg/L FEU (0.00-0.49) EKG Diagnostic Results Troponin ordered: Yes When was troponin ordered?: Apr 07, 2020 EKG Time: 13:38 Rate: normal - 71 Bpm Rhythm: NSR ST Segments: no acute changes ASA given to the pt in ED: No PA Scribe Text This Interpretation was scribed by JERRELL Feng. Other X-Ray Diagnostic Results Other X-Ray Diagnostic Results : X-Ray ordered: Left Knee # of Views/Limited Vs Complete: 3 View Indication: Pain EP Interpretation: Yes PA Xray: Interpretation reviewed, by supervising MD, and agrees with findings. Interpretation: no dislocation, no soft tissue swelling, no fractures Impression: No acute disease Electronically Signed by: Louise Feng PA-C CT/MRI/US Diagnostic Results CT/MRI/US Diagnostic Results : Imaging Test Ordered: CT Chest, Abdomen and Pelvis without contrast Impression " IMPRESSION: Limited exam without intravenous contrast. Within these limitations: * Markedly enlarged prostate exerting mass effect on the posterior aspect of the bladder. This may be related to BPH however the possibility of prostate cancer not excluded. Correlation with prostate exam and PSA recommended. * Mild bilateral hydroureter without urinary tract stone. Findings may be related to degree of obstruction from enlarged prostate. * Bladder wall thickening correlate with urinalysis to exclude cystitis. * Scattered colonic diverticula. No evidence of acute diverticulitis. * Cholelithiasis without evidence of acute cholecystitis. * Post operative changes in the right inguinal region. Correlation with surgical history recommended. * Indwelling IVC filter. * Indwelling pacemaker. * Degenerative changes in the spine. No acute fracture. ." --Per official radiology report- Please see report for specific details. Last Vital Signs Date Time Temp Pulse Resp B/P (MAP) Pulse Ox O2 Delivery O2 Flow Rate FiO2 04/07/20 12:51 98.2 80 18 115/68 (84) 96 Room Air Status: improved Disposition: HOME, SELF-CARE Condition: Stable Scripts Acetaminophen* (ACETAMINOPHEN EXTRA STRENGTH*) 500 Mg Tablet 500 MG ORAL Q6H, #20 TAB Prov: Louise Feng 04/07/20 Referrals: [facility] + [facility] Patient Instructions: Fall Prevention in the Home, [id number], Knee Pain, [id number], Rib Contusion Additional Instructions: ~ ~ An emergent medical condition has not been identified based on this patients presentation, exam and any necessary testing/imaging. The patient is determined to be stable for outpatient follow-up and management of symptoms by a primary care provider. Take medications as directed. Do not drink alcohol, drive, or operate heavy machinery while taking Tylenol # 3 as this may cause drowsiness. Follow up with a Primary Care Provider in 3-5 days, even if your symptoms have resolved. --Please review list of primary care clinics, if you do not already have a primary care provider Return sooner to ED if new symptoms occur, or current symptoms become worse. - Please note that this Emergency Department Report was dictated using [employer] make ready worker technology software, occasionally this can lead to erroneous entry secondary to interpretation by the dictation equipment. Louise Feng Apr 07, 2020 13:35
[2020-04-07 13:40] VITALS: BP 115/68
--- NOTE | 2020-04-07 14:27 | Diagnostic Imaging Report ---
Indication: Knee pain Technique: 2 views of the left knee Comparison: 04/13/2013 Findings: No acute fracture or dislocations identified. There are overall mild degenerative changes with small marginal osteophytes noted in the medial compartment. Quadriceps tendon enthesophytes noted. No suprapatellar joint effusion. No radiopaque foreign body. Impression: No acute fracture or dislocation. Mild degenerative changes.
--- NOTE | 2020-04-07 14:57 | Diagnostic Imaging Report ---
Indication: Chest and abdominal pain Technique: Noncontrast CT of the chest, abdomen and pelvis utilizing automated exposure control. Axial, sagittal and coronal reformats presented. CT dose: Total DLP 503.5 mGycm; CTDI vol 7.9 mGy Comparison: Comparison made to CT angiogram of the chest 05/06/2015 Findings: Please note that evaluation of the vasculature, mediastinal structures and abdominal and pelvic viscera and vascular structures is limited without the use of intravenous and oral contrast. Within these limitations the following observations are made: Mild minimal linear atelectasis or scarring is noted in the middle lobe. Minimal dependent atelectatic changes noted in the right lower lobe. No dense consolidation. No pleural effusion thorax. There is evidence of prior surgery with median sternotomy. There is an indwelling pacemaker with lead tips in the right atrium and ventricle. Heart size within normal limits. No pericardial effusion. Some small nonspecific mediastinal lymph nodes are noted. Thyroid is unremarkable in appearance. Thoracic aorta is normal in caliber with minimal atherosclerotic calcification. There is cholelithiasis. No CT evidence to suggest acute cholecystitis. Conscious evaluation of the liver, spleen, adrenal glands and pancreas unremarkable. No peripancreatic inflammatory changes or fluid collections. There is mild bilateral hydroureter. No obstructing urinary tract stones are seen. The prostate is markedly enlarged and exerts mass effect on the posterior aspect of the bladder, including the expected regions of the ureterovesical junctions bilaterally. There is bladder wall thickening. There is no free intraperitoneal air or fluid. There is no evidence of bowel obstruction. Scattered colonic diverticula are noted. There is no evidence of acute diverticulitis. Appendix is normal. Abdominal aorta is normal in caliber. There is an indwelling IVC filter; some of the legs have penetrated the wall of the IVC. There are postoperative changes in the right inguinal region. There is a small fat-containing umbilical hernia. Slight thoracolumbar scoliosis and mild degenerative changes in the spine. No aggressive/destructive bone lesion. No acute fracture is seen. IMPRESSION: Limited exam without intravenous contrast. Within these limitations: * Markedly enlarged prostate exerting mass effect on the posterior aspect of the bladder. This may be related to BPH however the possibility of prostate cancer not excluded. Correlation with prostate exam and PSA recommended. * Mild bilateral hydroureter without urinary tract stone. Findings may be related to degree of obstruction from enlarged prostate. * Bladder wall thickening correlate with urinalysis to exclude cystitis. * Scattered colonic diverticula. No evidence of acute diverticulitis. * Cholelithiasis without evidence of acute cholecystitis. * Post operative changes in the right inguinal region. Correlation with surgical history recommended. * Indwelling IVC filter. * Indwelling pacemaker. * Degenerative changes in the spine. No acute fracture. The CT scanner at [facility] is accredited by the [employer] and the scans are performed using protocols designed to limit radiation exposure to as low as reasonably achievable to attain images of sufficient resolution adequate for diagnostic evaluation.
[2020-04-07] MEDS ORDERED: ACETAMINOPHEN-1 EAC1 ORAL ×2 (15:25)
[2020-04-07] MEDS ORDERED: ACETAMINOPHEN500 M3 ORAL (15:49)
[2020-04-07 16:00] VITALS: BP 118/70
== END 2020-04-07 16:00 | disposition home or self-care (01) ==
LOC: EMR 13:20
DX: S20.212A Contusion of left front wall of thorax, initial encounter (principal); S40.012A Contusion of left shoulder, initial encounter; M25.562 Pain in left knee; M54.6 Pain in thoracic spine; W06.XXXA Fall from bed, initial encounter; Y92.9 Unspecified place or not applicable; Z95.0 Presence of cardiac pacemaker; Z86.711 Personal history of pulmonary embolism; Z79.01 Long term (current) use of anticoagulants; E11.9 Type 2 diabetes mellitus without complications; K57.90 Diverticulosis of intestine, part unspecified, without perforation or abscess without bleeding; K80.20 Calculus of gallbladder without cholecystitis without obstruction; N13.4 Hydroureter; N40.0 Benign prostatic hyperplasia without lower urinary tract symptoms; M41.9 Scoliosis, unspecified; K44.9 Diaphragmatic hernia without obstruction or gangrene; J44.9 Chronic obstructive pulmonary disease, unspecified
CPT/HCPCS: 36415; 71250; 74176; 84484; 85379; 85610; 85730; 93005; 99284

== ENCOUNTER 2020-04-11 22:07 | Emergency (ER) | payer MEDICARE, MEDICAID ==
[~2020-04-11] VITALS: Ht 172.7 cm; Wt 88.5 kg
[~2020-04-11 22:07] MED LIST changes: +ACETAMINOPHEN-1 EAC1 ORAL; +ACETAMINOPHEN500 M3 ORAL
[2020-04-11 23:05] VITALS: BP 121/65
[2020-04-11 23:06] VITALS: BP 121/65
--- NOTE | 2020-04-11 23:14 | Emergency Room Report ---
History of Present Illness General Chief Complaint: Chest Pain Source: Patient Present Illness HPI This is a 65-year-old male with a history of pulmonary embolism for which he is taking Eliquis. He presents with chief complaint of chest pain. Onset today. He get recurrent chest pain every single day. He has been to multiple hospital as well as this ER. He was just seen here few days ago because he said had a fall and work-up including CT scan of chest abdomen pelvis. There was negative. He said the chest pain the left chest. No radiation. Nothing made it better. Not made it worse. Patient very vague of his pain. I noticed that he has stickers on his chest. He said he was at urgent care this morning for the same thing. I told the nurse that it only occurred an hour ago. No radiation of the pain. No diaphoresis. No shortness of breath. 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: No Patient History Past Medical History: see triage record, old chart reviewed Past Surgical History: other Pertinent Family History: none Social History: Denies: smoking Immunizations: other Reviewed Nursing Documentation: PMH: Agreed; PSxH: Agreed Nursing Documentation-PM Hx Cardiac Problems: Yes - PE Hx Hypertension: Yes Hx Pacemaker: Yes - 2018 Hx Asthma: No Hx COPD: Yes Hx Diabetes: Yes Hx Cancer: No Hx Gastrointestinal Problems: No Hx Dialysis: No Hx Neurological Problems: No Hx Cerebrovascular Accident: No Hx Seizures: No Hx Headaches: Yes Review of Systems Eye: Denies: eye pain, blurred vision ENT: Denies: ear pain, nose congestion, throat swelling Respiratory: Denies: cough, shortness of breath Cardiovascular: Reports: chest pain; Denies: palpitations Gastrointestinal: Denies: abdominal pain, diarrhea, nausea, vomiting Musculoskeletal: Denies: back pain, joint pain Skin: Denies: rash Neurological: Denies: headache, numbness Endocrine: Denies: increased thirst, increased urine Hematologic/Lymphatic: Denies: easy bruising All Other Systems: negative except mentioned in HPI Physical Exam Vital Signs Date Time Temp Pulse Resp B/P (MAP) Pulse Ox O2 Delivery O2 Flow Rate FiO2 04/11/20 22:56 97.5 77 16 121/65 (83) 97 Room Air Vitals normal Sp02 EP Interpretation: reviewed, normal General Appearance: well appearing, no apparent distress, alert Head: normocephalic, atraumatic Eyes: bilateral eye PERRL, bilateral eye EOMI ENT: hearing grossly normal, normal pharynx Neck: full range of motion, supple, no meningismus Respiratory: chest non-tender, lungs clear, normal breath sounds Cardiovascular #1: regular rate, rhythm, no murmur Gastrointestinal: normal bowel sounds, non tender, no mass, no organomegaly, no bruit, non-distended Musculoskeletal: back normal, normal range of motion, gait/station normal Psychiatric: mood/affect normal Medical Decision Making Diagnostic Impression: Primary Impression: Chest pain Qualified Codes: R07.9 - Chest pain, unspecified ER Course Patient presents with chest pain. This appears be a chronic issue. He has been here numerous times as well as other hospital. He is in no respiratory distress. When I asked him about his frequent ER visits and also his urgent car e visit, he got mad and said he does not want to stay anymore. He refused any blood work or EKG. Unlikely to be ACS, PE, dissection to name a few. Again patient left prior to any work-up. I suspect a drug-seeking and/or personality disorder. EKG Diagnostic Results Troponin ordered: No - Patient refused Last Vital Signs Date Time Temp Pulse Resp B/P (MAP) Pulse Ox O2 Delivery O2 Flow Rate FiO2 04/11/20 22:56 97.5 77 16 121/65 (83) 97 Room Air Status: unchanged Disposition: AGAINST MEDICAL ADVICE Condition: Stable Referrals: NOT CHOSEN IPA/,REFERRING (PCP) Raghu Villela MD Apr 11, 2020 23:14
== END 2020-04-11 23:06 | disposition left against medical advice (07) ==
LOC: EMR 22:25
DX: R07.9 Chest pain, unspecified (principal); Z86.711 Personal history of pulmonary embolism; Z79.01 Long term (current) use of anticoagulants; Z88.6 Allergy status to analgesic agent; Z91.041 Radiographic dye allergy status; Z95.0 Presence of cardiac pacemaker; I10 Essential (primary) hypertension; E11.9 Type 2 diabetes mellitus without complications
CPT/HCPCS: 99281

== ENCOUNTER 2020-07-08 13:28 | Inpatient (IN) | payer MEDICARE, MEDICAID ==
[~2020-07-08] VITALS: Ht 172.7 cm; Wt 93.0 kg
--- NOTE | 2020-07-08 14:00 | NUR ---
ED Nurse Note:pt. came from home with c/o chest pain for 1 hrs, VSS, ambulatory with steasdy gait, placed on monitor and storage bin tender, blood was sent to labs, EKG done
[2020-07-08 14:25] VITALS: BP 116/72
[2020-07-08 14:46] LABS: BASOPHILS % (AUTO) 0.7 % (0.0-2.0); EOSINOPHILS % (AUTO) 1.5 % (0.0-3.0); HEMATOCRIT 37.3 % (42.0-52.0); HEMOGLOBIN 10.8 G/DL (14.2-18.0); LYMPHOCYTES % (AUTO) 19.5 % (20.0-45.0); MEAN CORPUSCULAR VOLUME 79 FL (80-99); MONOCYTES % (AUTO) 9.1 % (1.0-10.0); NEUTROPHILS % (AUTO) 69.3 % (45.0-75.0); PLATELET COUNT 218 K/UL (150-450); RED BLOOD COUNT 4.71 M/UL (4.70-6.10); WHITE BLOOD COUNT 8.9 K/UL (4.8-10.8)
[2020-07-08 14:54] LABS: ANION GAP 10 mmol/L (5-15); BLOOD UREA NITROGEN 19 mg/dL (7-18); CARBON DIOXIDE 26 MMOL/L (21-32); CHLORIDE 108 MMOL/L (98-107); CREATININE 1.3 MG/DL (0.55-1.30); POTASSIUM 3.7 MMOL/L (3.5-5.1); SODIUM 144 MMOL/L (136-145)
--- NOTE | 2020-07-08 14:58 | Diagnostic Imaging Report ---
Procedure: XRAY Chest 1v Reason for study: Chest pain Comparison films: 03/12/2020. FINDINGS: Pacer remains in place. Vascularity is normal. The lung owen are clear bilaterally. Cardiac and mediastinal silhouette are within normal limits. CP angles are sharp. The bony thorax appear unremarkable. IMPRESSION: NO ACUTE CARDIOPULMONARY DISEASE.
[2020-07-08 14:59] LABS: ALANINE AMINOTRANSFERASE 21 U/L (12-78); ALBUMIN 3.8 G/DL (3.4-5.0); ALBUMIN/GLOBULIN RATIO 0.9 (1.0-2.7); ALKALINE PHOSPHATASE 81 U/L (46-116); ASPARTATE AMINO TRANSFERASE 22 U/L (15-37); BILIRUBIN,TOTAL 0.4 MG/DL (0.2-1.0)
[2020-07-08] MEDS ORDERED: Morphine Sulfate 2mg/ml Inj(IV/IM USE ONLY) IVP ONE (16:00)
--- NOTE | 2020-07-08 17:04 | Emergency Room Report ---
History of Present Illness General Chief Complaint: Chest Pain Source: Patient, Medical Record Present Illness HPI 65-year-old male with history of PE currently on Eliquis with numerous cardiac work-up at different hospital with the most recent one [facility] x[facility] month who has been here multiple times and has had multiple hospitalization with the recent cardiac work-up done by radiologist, Dr. Sotomayor in February 2020 within normal limits, here complaining of sudden onset of chest pain rating to left arm x45 minutes. Denies any headache and dizziness. Denies nausea vomiting diarrhea. Denies URI symptoms. Reports that he took the last dose of Eliquis this morning. Denies pleuritic chest pain. Denies tobacco smoke and drug use. 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 COVID-19 Screening: Negative COVID-19 COVID-19 Testing Source: yesterday Patient History Past Medical History: see triage record Past Surgical History: none Pertinent Family History: none Immunizations: UTD Reviewed Nursing Documentation: PMH: Agreed; PSxH: Agreed Nursing Documentation-PMH Past Medical History: No History, Except For Hx Cardiac Problems: Yes - PE Hx Hypertension: Yes Hx Pacemaker: Yes - 2017 Hx Asthma: No Hx COPD: Yes Hx Diabetes: Yes Hx Cancer: No Hx Gastrointestinal Problems: No Hx Dialysis: No Hx Neurological Problems: No Hx Cerebrovascular Accident: No Hx Seizures: No Hx Headaches: Yes Review of Systems All Other Systems: negative except mentioned in HPI Physical Exam Vital Signs Date Time Temp Pulse Resp B/P (MAP) Pulse Ox O2 Delivery O2 Flow Rate FiO2 07/08/20 13:47 97.5 73 15 116/72 (87) 99 Room Air Sp02 EP Interpretation: reviewed, normal General Appearance: no apparent distress, alert, GCS 15, non-toxic Head: normocephalic, atraumatic Eyes: bilateral eye normal inspection, bilateral eye PERRL ENT: hearing grossly normal, normal pharynx, no angioedema, normal voice Neck: full range of motion, supple/symm/no masses Respiratory: lungs clear, no rhonchi, no respiratory distress, no retraction Cardiovascular #1: regular rate, rhythm, no edema, no JVD Gastrointestinal: non tender Rectal: deferred Genitourinary: no CVA tenderness Musculoskeletal: back normal Neurologic: alert, motor strength/tone normal, oriented x3, sensory intact, responsive, speech normal Psychiatric: judgement/insight normal, memory normal, mood/affect normal, no suicidal/homicidal ideation Skin: no rash Lymphatic: no adenopathy Medical Decision Making PA Attestation All my diagnosis and treatment plans were reviewed ad discussed with my supervising physician Dr. May Diagnostic Impression: Primary Impression: Chest pain Additional Impression: Tachycardia ER Course 65-year-old male with history of PE currently on Eliquis with numerous cardiac work-up at different hospital with the most recent one [facility] x[facility] month who has been here multiple times and has had multiple hospitalization with the recent cardiac work-up done by radiologist, Dr. Sotomayor in February 2020 within normal limits, here complaining of sudden onset of chest pain rating to left arm x45 minutes. Denies any headache and dizziness. Denies nausea vomiting diarrhea. Denies URI symptoms. Reports that he took the last dose of Eliquis this morning. Denies pleuritic chest pain. Denies tobacco smoke and drug use. Ddx considered but are not limited to: [place], Angina, COPD, GERD, PE Vital signs: are WNL, pt. is afebrile H&PE are most consistent with chest pain, tachycardia ORDERS: Chest pain order set ED INTERVENTIONS: Morphine. Patient was admitted with diagnosis of chest pain to Dr. Watts under supervision of Dr.: May pt stable at time of admission EKG Diagnostic Results Rate: normal Rhythm: NSR ST Segments: no acute changes Other Impression No acute ST changes ASA given to the pt in ED: No Chest X-Ray Diagnostic Results Chest X-Ray Diagnostic Results : Chest X-Ray Ordered: Yes # of Views/Limited/Complete: 1 View Indication: Chest Pain EP Interpretation: Yes JERRELL Xray: Interpretation reviewed, by supervising MD, and agrees with nicole zendejas. Interpretation: no consolidation, no effusion, no pneumothorax Impression: No acute disease Electronically Signed by: Julian Martinez PA-C Last Vital Signs Date Time Temp Pulse Resp B/P (MAP) Pulse Ox O2 Delivery O2 Flow Rate FiO2 07/08/20 16:45 97.5 07/08/20 14:25 72 15 116/72 99 Room Air Disposition: ADMITTED INPATIENT Condition: Serious Referrals: NOT CHOSEN IPA/,REFERRING (PCP) Julian Biswas Jul 08, 2020 17:04
[2020-07-08 17:18] LABS: APPEARANCE,URINE SLIGHTLY CLOUDY; BILIRUBIN, URINE NEGATIVE (NEGATIVE); GLUCOSE, URINE (UA) 1+ (NEGATIVE); KETONES,URINE 1+ (NEGATIVE); LEUKOCYTE ESTERASE ,URINE 1+ (NEGATIVE); NITRITE,URINE NEGATIVE (NEGATIVE); PH,URINE 5 (4.5-8.0); PROTEIN,URINE 2+ (NEGATIVE); UROBILINOGEN,URINE NORMAL MG/DL (0.0-1.0)
[2020-07-08 17:19] LABS: COLOR,URINE YELLOW
[2020-07-08 17:57] VITALS: BP 144/76
[2020-07-08] MEDS ORDERED: Ketorolac 30mg Inj IV ONE (18:15)
--- NOTE | 2020-07-08 20:40 | NUR ---
NURSE NOTES: RECEIVED REPORT FROM YANETH NAIR, FROM ED. PT ADMITTED TO TELEMETRY ROOM 202-2, PT ALERT, ORIENTED X4, ABLE TO MAKE NEEDS KNOWN. NO RESP DISTRESS NOTED. 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 PT ABLE TO AMB WITH STEADY GAIT FROM GURNEY TO BED. NO C/O ANY CHEST PAIN OR DISCOMFORT AT THIS TIME. ORIENTED PT TO UNIT AND ROOM. BELONGING LIST CHECK, BODY CHECK DONE. BED IN LOW POSITION & LOCKED. SIDE RAILS UP X2. CALL LIGHT WITH IN REACH. CALLED DR. VELASQUEZ FOR ADMISSION ORDERED. V/S BP 116/66, P 99, RR20, 97.9, O2 SAT AT ROOM AIR 95%.
--- NOTE | 2020-07-08 20:45 | NUR ---
NURSE NOTES: DR. VELASQUEZ CALLED BACK WITH ADMISSION ORDERED WILL NOTE & CARRY OUT. INFORMED DR. VELASQUEZ REGARDING PTS EKG NSR WITH TRIGEMINY PVC, DR VELASQUEZ ADDED DR. SCHULZ CARDIO CONSULT.
[2020-07-08] MEDS ORDERED: Nitroglycerin Subl 0.4mg tab SL PRN (21:45)
[2020-07-08] MEDS ORDERED: Morphine Sulfate 4mg/ml Inj (IV USE ONLY) IVP PRN (21:45)
[2020-07-09] VITALS: BP 100/69
[2020-07-09 04:00] VITALS: BP 121/76
--- NOTE | 2020-07-09 06:42 | NUR ---
CASE MANAGEMENT:REVIEW 65 YR OLD MALE WALKED INTO ER PMH: MULTIPLE ADMISSIONS AND NON COMPLIANT WITH AGREEMENT TO TESTING ie. STRESS TEST CC: CHEST PAIN SI: CHEST PAIN. TACHYCARDIA 97.6 73 15 116/72 99% ON RA GLUCOSE+137 TROPONIN(-) IS: IV MORPHINE X1 IV TORADOL X1 CHEST XRAY URINE CX : TO TELEMETRY
--- NOTE | 2020-07-09 07:20 | NUR ---
NURSE NOTES: RECEIVED REPORT FROM KOREY MAKI. PT ALERT, AWAKE AND ORIENTED X4, ABLE TO MAKE NEEDS KNOWN. NO RESP DISTRESS NOTED. 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 ABLE TO AMBULATE WITH STEADY GAIT AND UTILIZE URINAL. NO C/O ANY CHEST PAIN OR DISCOMFORT AT THIS TIME. BED IN LOWEST POSITION & LOCKED. SIDERAILS UP X2. CALL LIGHT WITH IN REACH. BED ALARM ACTIVATED. VERBALIZED UNDERSTANDING. KEPT BED ON LOCK MODE. WILL CONT TO MONITOR.
--- NOTE | 2020-07-09 07:37 | NUR ---
NURSE HAND-OFF REPORT: Important Events on Shift:[admitted last night d/t chest pain. troponin negative] Patient Status: [full code, stable] Diet: [cardiac] Pending Orders: [] Pending Results/Labs:[] Pending MD notification:[] Latest Vital Signs: Temperature 98.0 , Pulse 62 , B/P 121 /76 , Respiratory Rate 16 , O2 SAT 95 , Room Air, O2 Flow Rate . Vital Sign Comment: [] EKG Rhythm: A-paced,BBB Rhythm change?: N MD Notified?: N - MD Response: Latest Rivera Fall Score: 40 Fall Risk: Medium Risk Safety Measures: Call light Within Reach, Bed Alarm Zone 2, Side Rails Side Rails x2, Bed position Low and Locked. Fall Precautions: Yellow Socks Yellow Gown Door Sign Patient Fall Education Report given to [KOREY ARENAS].
[2020-07-09 08:00] VITALS: BP 139/70
[2020-07-09] MEDS: Aspirin Baby 81mg ORAL SCH (08:20)
[2020-07-09] MEDS: Eliquis 5mg tablet ORAL SCH ×2 (08:20→17:06)
[2020-07-09] MEDS: Cosopt Opth Soln 10 mL Btl BOTH EYES SCH ×2 (08:20→17:05)
[2020-07-09] MEDS: Brimonidine 0.2% Opth Sol BOTH EYES SCH ×2 (08:21→17:06)
[2020-07-09] MEDS: Morphine Sulfate 2mg/ml Inj(IV/IM USE ONLY) IVP PRN ×2 (10:48→18:23)
--- NOTE | 2020-07-09 11:12 | NUR ---
NURSE NOTES: courtesy call to Dr pino. will cont to monitor
[2020-07-09 12:00] VITALS: BP 113/70
--- NOTE | 2020-07-09 15:14 | History and Physical Report ---
DATE OF ADMISSION: 07/08/2020 HISTORY OF PRESENT ILLNESS: This is a 65-year-old male, who has past medical history of hypertension, diabetes, history of PE, CHF, cardiomyopathy, status post ICD placement, came to the emergency room for having a chest pain, palpitation for a few days prior to admission, intermittently, also short of breath on exertion. He denies any palpitation. Denies any nausea or vomiting. Denies any abdominal pain or diaphoresis. The patient is currently in bed, comfortable, asking for pain medication morphine one time for the left-sided chest pain. PAST MEDICAL HISTORY: As listed in H and P. MEDICATIONS: He is taking apixaban, aspirin, Lipitor, dorzolamide, finasteride, metformin, Flomax. ALLERGIES: To contrast, hydromorphone, iodine contrast medication. PHYSICAL EXAMINATION: GENERAL: This is an elderly male, currently in the bed, comfortable. VITAL SIGNS: Blood pressure 139/70, pulse 60, respirations 20, temperature 97.5. SKIN: Good skin turgor. HEENT: NAD. CHEST: Bilaterally with few crackles. CARDIOVASCULAR: Regular rhythm. No gallop. No murmur. ABDOMEN: Soft. Positive bowel sounds. Nontender. EXTREMITIES: No edema. GENITOURINARY: Deferred. LABORATORY DATA: White counts were , hemoglobin 10.8. Chemistry panel, sodium 144, potassium 3.7, BUN 19, creatinine 1.3. Troponins are negative. Glucose 137. EKG, nonspecific ST and T-wave changes. His chest x-ray, no acute cardiopulmonary disease. ASSESSMENT AND PLAN: 1. Acute coronary syndrome. 2. Hypertension. 3. Hyperlipidemia. 4. Acute renal insufficiency. 5. Diabetes. 6. Status post cardiac arrhythmia. 7. Coronary artery disease. 8. History of PE. We will currently continue aspirin. Continue anticoagulation. Rule out DC. Check troponins. Consider Cardiology consult. Continue home medications. Stephen Carvajal M.D. DR: BEATRIZ JOB#: [id number] CC:
[2020-07-09 16:00] VITALS: BP 122/66
--- NOTE | 2020-07-09 19:24 | NUR ---
NURSE HAND-OFF REPORT: Important Events on Shift:[pain managed] Patient Status: [stable] Diet: [cardiac] Pending Orders: [] Pending Results/Labs:[] Pending MD notification:[] Latest Vital Signs: Temperature 97.7 , Pulse 65 , B/P 122 /66 , Respiratory Rate 20 , O2 SAT 98 , Room Air, O2 Flow Rate . Vital Sign Comment: [] EKG Rhythm: A-paced,BBB Rhythm change?: Y MD Notified?: N - MD Response: Latest Rivera Fall Score: 40 Fall Risk: Medium Risk Safety Measures: Call light Within Reach, Bed Alarm Zone 1, Side Rails Side Rails x2, Bed position Low and Locked. Fall Precautions: Yellow Socks Yellow Gown Door Sign Patient Fall Education Report given to [[email or web address]].
--- NOTE | 2020-07-09 19:54 | NUR ---
NURSE NOTES: RECEIVED PATIENT LYING IN BED, AWAKE, ALERT/ORIENTED X4, VERBALLY RESPONSIVE, PAIN MANAGEMENT ONGOING FOR COMPLAINTS OF CHEST PAIN, SOLID CENTER WINDER AWARE. NO SIGNS AND SYMPTOMS OF ACUTE CARDIO RESPIRATORY DISTRESS/SHORTNESS OF BREATH, NO PERIPHERAL EDEMA NOTED. SINUS RHYTHM ON VISCOSITY TESTER, PULSE 64-68. DENIES GI DISCOMFORT, NO N/V/D, GOOD APPETITE, REQUESTING PM SNACK. SIDE RAILS UP X2, BED IN LOWEST POSITION FOR SAFETY, FALL PRECAUTIONS OBSERVED, ENCOURAGED PATIENT TO UTILIZE CALL LIGHT FOR ASSISTANCE SECONDARY TO NARCOTIC USAGE, VERBALIZED UNDERSTANDING. CONTINUE WITH CURRENT PLAN OF CARE. NAD.
[2020-07-09 20:00] VITALS: BP 117/70
--- NOTE | 2020-07-09 20:43 | Consultation ---
History of Present Illness General Chief Complaint: Chest Pain Present Illness HPI 65-year-old Black male admitted through the ER c/o chest pain described as heaviness lasting seconds per episode occurring at rest x 1day. PMHx CAD, CHF s/p AICD, PE s/p IVC filter on Eliquis, HTN. Pt states he was sitting at home when chest pain began causing him to report to ER. CXR negative for acute HF, troponin negative x2. EKG SR T wave inversions non-specific, tachycardic at time of admission. Denies CP at time of exam, but recently received morphine. Echo pending. Allergies: Coded Allergies: HYDROMORPHONE (Verified Allergy, Unknown, 09/02/19) Uncoded Allergies: CONTRAST DYE (Allergy, Unknown, 03/15/19) IODINE CONTRAST (Allergy, Unknown, 09/26/19) Medication History Scheduled Acetaminophen* (Acetaminophen Extra Strength*), 500 MG ORAL Q6H Apixaban (Eliquis*), 5 MG PO BID, (Reported) Atorvastatin Calcium* (Lipitor*), 10 MG ORAL DAILY, (Reported) Brimonidine Tartrate* (Alphagan*), 2 DROP BOTH EYES BID, (Reported) Dorzolamide HCl/Timolol Maleat (Dorzolamide-Timolol Eye Drops), 1 DROP BOTH EYES TWICE A DAY, (Reported) Finasteride* (Proscar*), 5 MG ORAL DAILY, (Reported) Metformin Hcl* (Metformin Hcl*), 850 MG ORAL BID Tamsulosin Hcl (Tamsulosin Hcl*), 0.4 MG ORAL BEDTIME, (Reported) Travoprost (Benzalkonium) (Travatan 0.004% Eye Drop), 1 DROP BOTH EYES BEDTIME, (Reported) Patient History History Provided By: Patient Healthcare decision maker Resuscitation status Advanced Directive on File Review of Systems All Other Systems: negative except mentioned in HPI Physical Exam General Appearance: no apparent distress HEENT: atraumatic, PERRL Neck: non-tender, supple Respiratory/Chest: lungs clear, normal breath sounds Cardiovascular/Chest: normal rate, regular rhythm Abdomen: soft Extremities: non-tender, trace edema Skin Exam: warm/dry 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 II-XII grossly normal Last 24 Hour Vital Signs Date Time Temp Pulse Resp B/P (MAP) Pulse Ox O2 Delivery O2 Flow Rate FiO2 07/09/20 18:53 97.7 07/09/20 16:00 97.7 65 20 122/66 (84) 98 07/09/20 12:00 97.5 61 20 113/70 (84) 99 07/09/20 12:00 60 07/09/20 11:18 97.5 07/09/20 09:00 Room Air 07/09/20 08:00 97.5 60 20 139/70 (93) 99 07/09/20 08:00 60 07/09/20 04:00 60 07/09/20 04:00 98.0 62 16 121/76 (91) 95 07/09/20 00:00 97.7 61 18 100/69 (79) 95 07/09/20 00:00 60 07/08/20 22:07 Room Air Intake and Output 07/08/20 07/09/20 19:00 07:00 Intake Total 120 ml Output Total 400 ml Balance 120 ml -400 ml Intake Oral 120 ml Output Urine Total 400 ml # Voids 4 Laboratory Tests Test 07/09/20 07:05 Troponin I 0.004 ng/mL (0.000-0.056) Height (Feet): 5 Height (Inches): 8.00 Weight (Pounds): 205 Medications Current Medications Medications (Trade) Dose Ordered Sig/Kristan Route PRN Reason Start Time Stop Time Status Last Admin Dose Admin Acetaminophen (Tylenol) 650 mg Q4H PRN ORAL Mild Pain (Pain Scale 1-3) 07/08/20 21:45 08/07/20 21:44 Apixaban (Eliquis) 5 mg BID ORAL 07/09/20 09:00 10/07/20 08:59 07/09/20 17:06 Aspirin (ASA) 81 mg DAILY ORAL 07/09/20 09:00 08/23/20 08:59 07/09/20 08:20 Atorvastatin Calcium (Lipitor) 10 mg BEDTIME ORAL 07/09/20 21:00 10/07/20 20:59 Brimonidine Tartrate (Alphagan) 2 drop BID BOTH EYES 07/09/20 09:00 10/07/20 08:59 07/09/20 17:06 Dorzolamide/ Timolol (Cosopt) 1 drop TWICE A DAY BOTH EYES 07/09/20 09:00 08/08/20 08:59 07/09/20 17:05 Finasteride (Proscar) 5 mg DAILY ORAL 07/09/20 09:00 10/07/20 08:59 07/09/20 08:20 Metformin HCl (Glucophage) 850 mg BID ORAL 07/09/20 09:00 08/08/20 08:59 07/09/20 17:06 Morphine Sulfate (Morphine Sulfate) 1 mg Q6H PRN IVP FOR CHEST PAIN 07/09/20 10:45 07/15/20 21:44 07/09/20 18:23 Nitroglycerin (Ntg) 0.4 mg Q5M PRN SL Prn Chest Pain 07/08/20 21:45 08/07/20 21:44 Tamsulosin HCl (Flomax) 0.4 mg BEDTIME ORAL 07/09/20 21:00 08/08/20 20:59 Assessment/Plan Status: stable Assessment/Plan: 1. Chest pain, atypical, non-exertional troponin negative x2 2. CHF acute on chronic diastolic HF EF 60%, s/p PPM/AICD CXR negative for acute HF 3. CAD 4. HTN 5. HPLD 6. h/o PE s/p IVC filter Eliquis 5mg bid Pt denies CP tonight, feeling ok. Will continue to trend troponin and repeat EKG. Echo done 02/2020, will repeat to r/o wall motion abnormality. SBP and HR in normal territory. Lucia Rodrigues PA-C Jul 09, 2020 20:43
[2020-07-09] MEDS ORDERED: Atorvastatin 20mg tab ORAL SCH (21:00)
[2020-07-09] MEDS: Tamsulosin 0.4mg cap ORAL SCH (21:40)
[2020-07-09] MEDS: Atorvastatin 20mg tab ORAL SCH (21:40)
[2020-07-10] VITALS: BP 118/65
[2020-07-10] MEDS: Morphine Sulfate 2mg/ml Inj(IV/IM USE ONLY) IVP PRN ×3 (03:53→18:20)
--- NOTE | 2020-07-10 03:59 | NUR ---
NURSE NOTES: PATIENT NOTED WITH COMPLAINTS OF CHEST PAIN, 7I/10, ACHING - MEDICATED WITH MORPHINE 1MG IV, TOLERATED WELL, NO ADVERSE REACTION NOTED AFTER 15 MINUTES. WILL CONTINUE TO MONITOR EFFECTIVENESS.
[2020-07-10 04:00] VITALS: BP 137/76
--- NOTE | 2020-07-10 07:25 | NUR ---
NURSE HAND-OFF REPORT: Important Events on Shift:[RESTED WELL, UNEVENTFUL NIGHT] Patient Status: [STABLE] Diet: [] Pending Orders: [TROPONIN/2D ECHO] Pending Results/Labs:[URINE CULTURE PENDING- Pending MD notification:[] Latest Vital Signs: Temperature 97.3 , Pulse 64 , B/P 137 /76 , Respiratory Rate 16 , O2 SAT 98 , Room Air, O2 Flow Rate . Vital Sign Comment: [STABLE,AFEBRILE] EKG Rhythm: SR, BBB Rhythm change?: N MD Notified?: N - MD Response: Latest Rivera Fall Score: 40 Fall Risk: Medium Risk Safety Measures: Call light Within Reach, Bed Alarm Zone 1, Side Rails Side Rails x2, Bed position Low and Locked. Fall Precautions: Yellow Socks Yellow Gown Door Sign Patient Fall Education Report given to [JULIOCESAR ARENAS].
--- NOTE | 2020-07-10 07:30 | NUR ---
NURSE NOTES: RECEIVED REPORT FROM [facility]. RECEIVED PATIENT LYING IN BED, EYES CLOSED. CALM AND COMFORTABLE. AWAKE, ALERT/ORIENTED X4, ABLE TO VERBALIZE NEEDS. NO SIGNS AND SYMPTOMS OF ACUTE CARDIO-RESPIRATORY DISTRESS/SHORTNESS OF BREATH, NO PERIPHERAL EDEMA NOTED. DENIES GI DISCOMFORT, NO N/V/D, ADEQUATE AMOUNT FOOD INTAKE. SIDERAILS UP X2, BED IN LOWEST POSITION FOR SAFETY, FALL PRECAUTIONS OBSERVED, ENCOURAGED PATIENT TO UTILIZE CALL LIGHT FOR ASSISTANCE. VERBALIZED UNDERSTANDING. CONTINUE WITH CURRENT PLAN OF CARE.
[2020-07-10 08:00] VITALS: BP 114/68
[2020-07-10] MEDS: Aspirin Baby 81mg ORAL SCH (08:23)
[2020-07-10] MEDS: Eliquis 5mg tablet ORAL SCH ×2 (08:23→17:05)
[2020-07-10] MEDS: Cosopt Opth Soln 10 mL Btl BOTH EYES SCH ×2 (08:23→17:07)
[2020-07-10] MEDS: Brimonidine 0.2% Opth Sol BOTH EYES SCH ×2 (08:23→17:08)
--- NOTE | 2020-07-10 09:00 | General Progress Note ---
Subjective Date patient seen: Jul 10, 2020 Constitutional: Reports: weakness HEENT: Reports: eye pain Cardiovascular: Reports: chest pain Respiratory: Reports: no symptoms Gastrointestinal/Abdominal: Reports: no symptoms Genitourinary: Reports: no symptoms Neurologic/Psychiatric: Reports: no symptoms Allergies: Coded Allergies: HYDROMORPHONE (Verified Allergy, Unknown, 09/02/19) Uncoded Allergies: CONTRAST DYE (Allergy, Unknown, 03/15/19) IODINE CONTRAST (Allergy, Unknown, 09/26/19) Subjective rec chest pain with mild sob Objective Last 24 Hour Vital Signs Date Time Temp Pulse Resp B/P (MAP) Pulse Ox O2 Delivery O2 Flow Rate FiO2 07/10/20 08:00 73 07/10/20 08:00 96.7 61 18 114/68 (83) 98 07/10/20 04:23 97.3 07/10/20 04:00 98.0 62 16 137/76 (96) 98 07/10/20 04:00 64 07/10/20 00:00 97.3 65 16 118/65 (82) 96 07/10/20 00:00 60 07/09/20 21:00 Room Air 07/09/20 20:00 97.8 68 20 117/70 (86) 98 07/09/20 20:00 64 07/09/20 18:53 97.7 07/09/20 16:00 97.7 65 20 122/66 (84) 98 07/09/20 12:00 97.5 61 20 113/70 (84) 99 07/09/20 12:00 60 07/09/20 11:18 97.5 07/09/20 09:00 Room Air Intake and Output 07/09/20 07/10/20 19:00 07:00 Intake Total 640 ml 900 ml Output Total 400 ml 800 ml Balance 240 ml 100 ml Intake Oral 640 ml 900 ml Output Urine Total 400 ml 800 ml # Voids 6 Height (Feet): 5 Height (Inches): 8.00 Weight (Pounds): 205 General Appearance: alert EENT: PERRL/EOMI Neck: supple Cardiovascular: regular rhythm Respiratory/Chest: normal breath sounds Abdomen: non tender, soft Genitourinary/Rectal: normal genital exam Extremities: non-tender Assessment/Plan Status: stable Assessment/Plan: acs cad cadriac dysarthemia htn dm -2 htn bph admit to [facility] r/o mi asa, beta awilda cardiology consult possible stress test on sunday Mika Carvajal MD Jul 10, 2020 09:00
[2020-07-10] MEDS: Docusate 250mg cap ORAL SCH ×2 (10:20→17:07)
[2020-07-10 11:44] VITALS: BP 119/67
[2020-07-10 15:32] VITALS: BP 107/66
--- NOTE | 2020-07-10 16:44 | Cardiology Progress Note ---
Assessment/Plan Status: unchanged Assessment/Plan 1. Chest pain, atypical, non-exertional troponin negative x2 2. CHF acute on chronic diastolic HF EF 60%, s/p PPM/AICD CXR negative for acute HF 3. CAD 4. HTN 5. HPLD 6. h/o PE s/p IVC filter Eliquis 5mg bid Recommend stress test on Sunday to r/o ischemic CM Subjective Gastrointestinal/Abdominal: Reports: no symptoms Genitourinary: Reports: no symptoms Subjective Chest pain comes and goes. Denies orthopnea Objective Last 24 Hour Vital Signs Date Time Temp Pulse Resp B/P (MAP) Pulse Ox O2 Delivery O2 Flow Rate FiO2 07/10/20 15:32 97.2 68 21 107/66 (80) 96 07/10/20 12:00 65 07/10/20 11:44 97.7 81 22 119/67 (84) 97 07/10/20 11:20 96.7 07/10/20 09:00 Room Air 07/10/20 08:00 73 07/10/20 08:00 96.7 61 18 114/68 (83) 98 07/10/20 04:23 97.3 07/10/20 04:00 98.0 62 16 137/76 (96) 98 07/10/20 04:00 64 07/10/20 00:00 97.3 65 16 118/65 (82) 96 07/10/20 00:00 60 07/09/20 21:00 Room Air 07/09/20 20:00 97.8 68 20 117/70 (86) 98 07/09/20 20:00 64 07/09/20 18:53 97.7 General Appearance: no apparent distress EENT: PERRL/EOMI Neck: no JVD Rhythm: NSR Cardiovascular: normal rate, regular rhythm Respiratory/Chest: normal breath sounds, no respiratory distress Abdomen: soft Extremities: trace edema Neurologic: no motor/sensory deficits Intake and Output 07/09/20 07/10/20 19:00 07:00 Intake Total 640 ml 900 ml Output Total 400 ml 800 ml Balance 240 ml 100 ml Intake Oral 640 ml 900 ml Output Urine Total 400 ml 800 ml # Voids 6 Laboratory Tests Test 07/10/20 09:03 Troponin I 0.000 ng/mL (0.000-0.056) Microbiology Date/Time Source Procedure Growth Status 07/08/20 15:50 Urine,Clean Catch Urine Culture - Final Mixed Gram Positive Organism Complete Lucia Rodrigues PA-C Jul 10, 2020 16:44
--- NOTE | 2020-07-10 19:15 | NUR ---
NURSE NOTES: Patient received from KOREY Watkins. Patient is awake, alert and oriented x 4. Patient is able to verbalize his needs. Patient is asking for a chicken sandwich, will tend to his needs. Patient is on room air with no signs of acute respiratory distress noted. Patient is able to ambulate. Patient has a right 20 gauge on his AC, saline lock. Bed is in lowest position, call light within reach. Will continue to monitor.
[2020-07-10 20:00] VITALS: BP 125/75
[2020-07-10] MEDS: Tamsulosin 0.4mg cap ORAL SCH (21:34)
[2020-07-10] MEDS: Latanoprost 0.005% Opth 2.5ml Soln BOTH EYES SCH (21:34)
[2020-07-10] MEDS: Atorvastatin 20mg tab ORAL SCH (21:35)
[2020-07-11] VITALS: BP 128/78
[2020-07-11] MEDS: Morphine Sulfate 2mg/ml Inj(IV/IM USE ONLY) IVP PRN ×4 (00:39→23:21)
[2020-07-11 04:00] VITALS: BP 122/68
--- NOTE | 2020-07-11 07:21 | NUR ---
NURSE HAND-OFF REPORT: Important Events on Shift:[] Patient Status: [Stable] Diet: [Cardiac diet] Pending Orders: [] Pending Results/Labs:[] Pending MD notification:[] Latest Vital Signs: Temperature 98.6 , Pulse 64 , B/P 122 /68 , Respiratory Rate 18 , O2 SAT 99 , Room Air, O2 Flow Rate . Vital Sign Comment: [] EKG Rhythm: A Pacing, BBB Rhythm change?: Y MD Notified?: N - MD Response: Latest Rivera Fall Score: 40 Fall Risk: Medium Risk Safety Measures: Call light Within Reach, Bed Alarm Zone 1, Side Rails Side Rails x2, Bed position Low and Locked. Fall Precautions: Yellow Socks Yellow Gown Door Sign Patient Fall Education Report given to [KOREY Terrell].
--- NOTE | 2020-07-11 07:52 | NUR ---
NURSE NOTES: Recieved report from Ryan RN. pt is stable and sleeping in bed, no s./s or complaint of distress at this time. Pt is on RA, unlabored and even breathing. Pt IV on RAC. skin intact. Pt bed low and locked, call light in reach and bed alarm on.
[2020-07-11 08:00] VITALS: BP 133/83
[2020-07-11] MEDS: Docusate 250mg cap ORAL SCH ×2 (08:09→17:10)
[2020-07-11] MEDS: Eliquis 5mg tablet ORAL SCH ×2 (08:09→17:10)
[2020-07-11] MEDS: Brimonidine 0.2% Opth Sol BOTH EYES SCH ×2 (08:09→17:09)
[2020-07-11] MEDS: Cosopt Opth Soln 10 mL Btl BOTH EYES SCH ×2 (08:09→17:09)
[2020-07-11] MEDS: Aspirin Baby 81mg ORAL SCH (08:10)
[2020-07-11 12:00] VITALS: BP 113/68
--- NOTE | 2020-07-11 12:41 | Cardiology Progress Note ---
Assessment/Plan Status: doing well Assessment/Plan 1. Chest pain, atypical, non-exertional troponin negative x2 2. CHF acute on chronic diastolic HF EF 60%, s/p PPM/AICD CXR negative for acute HF 3. CAD 4. HTN 5. HPLD 6. h/o PE s/p IVC filter Eliquis 5mg bid Recommend stress test on Sunday to r/o ischemic CM Subjective ROS Limited/Unobtainable: No Cardiovascular: Reports: chest pain Respiratory: Reports: no symptoms Gastrointestinal/Abdominal: Reports: no symptoms Genitourinary: Reports: no symptoms Subjective Chest pain comes and goes. Denies orthopnea Objective Last 24 Hour Vital Signs Date Time Temp Pulse Resp B/P (MAP) Pulse Ox O2 Delivery O2 Flow Rate FiO2 07/11/20 12:00 66 07/11/20 12:00 96.6 64 18 113/68 (83) 99 07/11/20 10:10 98.6 07/11/20 09:00 Room Air 07/11/20 08:00 97.7 65 17 133/83 (100) 98 64 07/11/20 08:00 113 07/11/20 04:00 60 07/11/20 04:00 98.6 64 18 122/68 (86) 99 07/11/20 01:09 97.7 07/11/20 00:00 97.7 67 20 128/78 (95) 97 07/11/20 00:00 64 07/10/20 21:00 Room Air 07/10/20 20:00 62 07/10/20 20:00 97.7 64 18 125/75 (92) 98 07/10/20 18:50 97.2 07/10/20 16:00 71 07/10/20 15:32 97.2 68 21 107/66 (80) 96 General Appearance: no apparent distress EENT: PERRL/EOMI Neck: non-tender, no JVD Rhythm: NSR Cardiovascular: normal rate, regular rhythm Respiratory/Chest: normal breath sounds Abdomen: non tender Extremities: non-tender Neurologic: cook pie II-XII grossly normal Intake and Output 07/10/20 07/11/20 19:00 07:00 Intake Total 120 ml 480 ml Output Total 1400 ml 700 ml Balance -1280 ml -220 ml Intake Oral 120 ml 480 ml Output Urine Total 1400 ml 700 ml # Voids 3 3 Microbiology Date/Time Source Procedure Growth Status 07/08/20 15:50 Urine,Clean Catch Urine Culture - Final Mixed Gram Positive Organism Complete Lucia Rodrigues PA-C Jul 11, 2020 12:41
[2020-07-11] MEDS ORDERED: Lexiscan 0.4mg/5ml syringe IV PRN (12:45)
--- NOTE | 2020-07-11 13:08 | General Progress Note ---
Subjective Allergies: Coded Allergies: HYDROMORPHONE (Verified Allergy, Unknown, 09/02/19) Uncoded Allergies: CONTRAST DYE (Allergy, Unknown, 03/15/19) IODINE CONTRAST (Allergy, Unknown, 09/26/19) Subjective rec chest pain with mild sob Objective Last 24 Hour Vital Signs Date Time Temp Pulse Resp B/P (MAP) Pulse Ox O2 Delivery O2 Flow Rate FiO2 07/11/20 12:00 66 07/11/20 12:00 96.6 64 18 113/68 (83) 99 07/11/20 10:10 98.6 07/11/20 09:00 Room Air 07/11/20 08:00 97.7 65 17 133/83 (100) 98 64 07/11/20 08:00 113 07/11/20 04:00 60 07/11/20 04:00 98.6 64 18 122/68 (86) 99 07/11/20 01:09 97.7 07/11/20 00:00 97.7 67 20 128/78 (95) 97 07/11/20 00:00 64 07/10/20 21:00 Room Air 07/10/20 20:00 62 07/10/20 20:00 97.7 64 18 125/75 (92) 98 07/10/20 18:50 97.2 07/10/20 16:00 71 07/10/20 15:32 97.2 68 21 107/66 (80) 96 Intake and Output 07/10/20 07/11/20 19:00 07:00 Intake Total 120 ml 480 ml Output Total 1400 ml 700 ml Balance -1280 ml -220 ml Intake Oral 120 ml 480 ml Output Urine Total 1400 ml 700 ml # Voids 3 3 Height (Feet): 5 Height (Inches): 8.00 Weight (Pounds): 205 General Appearance: alert EENT: PERRL/EOMI Neck: supple, normal inspection Cardiovascular: regular rhythm Respiratory/Chest: normal breath sounds Abdomen: non tender, no organomegaly Assessment/Plan Status: doing well Assessment/Plan: acs cad cadriac dysarthemia htn dm -2 htn bph admit to [facility] r/o mi asa, beta awilda cardiology consult possible stress test on sunday Mika Carvajal MD Jul 11, 2020 13:08
[2020-07-11 16:00] VITALS: BP 128/74
--- NOTE | 2020-07-11 17:50 | NUR ---
NURSE HAND-OFF REPORT: Important Events on Shift: stress test tmr 07/12, NPO tonight // lexiscan but pt wants treadmill // chest pain x2 PRN morphine given x2 Patient Status: fc, stable Diet: cardiac diet, no caffine, NPO 07/12 midnight Pending Orders: Pending Results/Labs: Pending MD notification: ask abt treadmill stress tesr Latest Vital Signs: Temperature 97.5 , Pulse 68 , B/P 128 /74 , Respiratory Rate 20 , O2 SAT 98 , Room Air, O2 Flow Rate . Vital Sign Comment: EKG Rhythm: Sinus Rhythm Rhythm change?: N MD Notified?: N - MD Response: Latest Rivera Fall Score: 40 Fall Risk: Medium Risk Safety Measures: Call light Within Reach, Bed Alarm Zone 1, Side Rails Side Rails x2, Bed position Low and Locked. Fall Precautions: Yellow Socks Yellow Gown Door Sign Patient Fall Education Report to be given . Addendum: 07/11/20 at 1934 by Nidhi Smith RN RN Pt is stable, plan of care endorsed to KOREY Lopez.
--- NOTE | 2020-07-11 18:17 | NUR ---
NURSE NOTES: Left message for JERRELL Rodrigues regarding Pt desire for treadmill test vs. lexiscan. awaiting call back
--- NOTE | 2020-07-11 19:15 | NUR ---
NURSE HAND-OFF REPORT: Important Events on Shift: Received report from Nidhi Dahl RN. Pt in bed, awake, alert, and oriented x 4. Pt denies pain at this time. No signs or symptoms of distress noted. Will continue to monitor closely. Will continue plan of care. Patient Status: FC Diet: Cardiac, NPO @ 0000 Pending Orders: Lexiscan Pending Results/Labs: none Pending MD notification: pt requests stress test during Lexiscan. PA made aware of request via VM, no callback received. Latest Vital Signs: Temperature 97.4 , Pulse 70 , B/P 136 /72 , Respiratory Rate 18 , O2 SAT 97 , Room Air, O2 Flow Rate . Vital Sign Comment: stable throughout shift per report. EKG Rhythm: Sinus Rhythm Rhythm change?: N MD Notified?: N - MD Response: Latest Rivera Fall Score: 85 Fall Risk: High Risk Safety Measures: Call light Within Reach, Bed Alarm Zone 1, Side Rails Side Rails x2, Bed position Low and Locked. Fall Precautions: YES Yellow Socks Yellow Gown Door Sign YES Patient Fall Education yes
[2020-07-11 20:00] VITALS: BP 114/60
[2020-07-11] MEDS: Latanoprost 0.005% Opth 2.5ml Soln BOTH EYES SCH (21:00)
[2020-07-11] MEDS: Atorvastatin 20mg tab ORAL SCH (21:35)
[2020-07-11] MEDS: Tamsulosin 0.4mg cap ORAL SCH (21:35)
[2020-07-12] VITALS: BP 136/72
[2020-07-12 04:00] VITALS: BP 110/71
--- NOTE | 2020-07-12 06:23 | NUR ---
NURSE HAND-OFF REPORT: Important Events on Shift: None Patient Status: FC Diet: NPO @ 0000 Pending Orders: Beatrice this AM. Pending Results/Labs: none Pending MD notification: none Latest Vital Signs: Temperature 97.8 , Pulse 71 , B/P 110 /71 , Respiratory Rate 18 , O2 SAT 97 , Room Air, O2 Flow Rate . Vital Sign Comment: stable throughout shift EKG Rhythm: Sinus Rhythm Rhythm change?: N MD Notified?: N - MD Response: Latest Rivera Fall Score: 85 Fall Risk: High Risk Safety Measures: YES Call light Within Reach, Bed Alarm Zone 1, Side Rails Side Rails x2, Bed position Low and Locked. Fall Precautions: YES Yellow Socks Yellow Gown Door Sign Patient Fall Education yes Report TO BE given to Musa Carvalho RN.
--- NOTE | 2020-07-12 06:50 | NUR ---
CASE MANAGEMENT:REVIEW 07/12/20 SI: CAD. ATYPICAL CHEST PAIN. AC/CHR CHF 97.8 68 18 110/71 97% ON RA TROPONIN(-) X2 IS: IV LEXISCAN X1 LIPITOR PO QHS FLOMAX PO QHS METFORMIN PO BID PROSCAR PO QD ELIQUIS PO BID ASA PO QD IV MORPHINE Q6HRS PRN : TELEMETRY STATUS DCP: FROM HOME PLAN: SCHEDULED FOR LEXISCAN STRESS TEST TODAY
--- NOTE | 2020-07-12 07:10 | NUR ---
NURSE NOTES: Patient seen in bed in high fowlers position, AAOx4 with no acute signs of distress. The patient is on room air with oxygen saturation within normal limits. The patient has a L 24G IV on the middle finger that is clean, patent and intact. The patients bed is in lowest position, locked, side rails x2, bed alarm in zone 1 and call light within reach. Patient instructed to press call light for any further needs.
--- NOTE | 2020-07-12 07:45 | NUR ---
NURSE NOTES: Went into patients room due to disconnection of quality assurance monitor body. Patient was completely dressed and said' "I'm leaving AMA".The patient is AAOx4 and able to make own decisions. Doctor notified of patients decision. Patient was educated on the risks of leaving AMA. Patient still decided to leave saying" Ill do the test another time" (referring to the lexiscan scheduled today 07/12). patient signed AMA form and belongings list form. Patients IV was discontinued and was clean and intact, No bleeding noted. The patient then walked off unit at 0745.
--- NOTE | 2020-07-12 07:45 | NUR ---
AMA: SEE AMA FORM.
--- NOTE | 2020-07-16 05:09 | Cardiology Report ---
APPROVED REPORT EKG Measurement Heart [id number] <Conclusion> Normal sinus rhythm Minimal voltage criteria for LVH, may be normal variant Borderline ECG
--- NOTE | 2020-07-16 05:10 | Cardiology Report ---
APPROVED REPORT EKG Measurement Heart [id number] <Conclusion> Normal sinus rhythm Normal ECG
--- NOTE | 2020-07-16 05:11 | Cardiology Report ---
APPROVED REPORT EXAM: Two-dimensional and M-mode echocardiogram with Doppler and color Doppler. INDICATION CAD M-Mode DIMENSIONS IVSd0.9 (0.7-1.1cm)Left Atrium (MM)3.5 (1.6-4.0cm) LVDd3.7 (3.5-5.6cm)Aortic Root3.4 (2.0-3.7cm) PWd0.9 (0.7-1.1cm)Aortic Cusp Exc.2.0 (1.5-2.0cm) IVSs1.6 cmEPSS0.7 (>1.0cm) LVDs3.0 (2.5-4.0cm) PWs1.3 cm <Conclusion> Normal left ventricular chamber size, systolic function and wall motion. Left ventricular ejection fraction estimated to be 60-65 %. No evidence of left ventricular hypertrophy. No evidence of pericardial effusion. All other cardiac chamber sizes are within normal limits. Focal aortic valve sclerosis with adequate cusp excursion. Thickened mitral valve leaflets with normal excursion. Mitral annulus and aortic root calcification. Normal pulmonic valve structure. Normal tricuspid valve structure. IVC is normal in size with physiological collapse. A color flow and spectral Doppler study was performed and revealed: Trace aortic regurgitation. Trace mitral regurgitation. Mitral diastolic velocities suggest mild left ventricular diastolic dysfunction (Grade I). Mild tricuspid regurgitation. Tricuspid systolic velocities suggests peak right ventricular systolic pressure of 27 mmHg. Mild pulmonic regurgitation present.
--- NOTE | 2020-07-16 17:02 | Discharge Summary ---
Discharge Summary Discharge Summary _ Date of admission: 07/08/2020 Patient left AGAINST MEDICAL ADVICE on 07/12/2020 History of Present Illness and Brief Hospital Course Mr. Harden is a 65-year-old male with history of pulmonary embolism, hypertension, pacemaker in 2018, COPD, and diabetes mellitus, who presented to the ED for evaluation of sudden onset chest pain radiating to his left arm x45 minutes. Patient reported taking Eliquis for his history of pulmonary embolism. Of note, patient had numerous cardiac work-up at different hospitals with the most recent one at [facility] 1 month ago. Patient reported taking the last dose of Eliquis the morning of presentation. Patient reported taking aspirin, Lipitor, dorzolamide, finasteride, Metformin, and Flomax along with his apixaban at home. His chest x-ray was negative for acute disease. His EKG showed normal sinus rhythm without acute ST changes. He was admitted to the hospital for observation. 2D echocardiogram revealed ejection fraction of 60 to 65%. His serial troponins were negative and his nonexertional chest pain resolved. At this point, patient was scheduled for a stress test to rule out ischemic cardiomyopathy. However, patient was found in his room fully dressed in his own clothes. He stated that he wanted to leave AMA. Patient was educated on the risks of leaving AMA and yet decided to leave stating that he will do the test at another time. Consultants: Cardiology Dr. Bales Final diagnoses Chest pain, atypical, nonexertional 6 acute on chronic diastolic heart failure, ejection fraction 60% Status post permanent pacemaker/AICD CAD Hypertension Hyperlipidemia History of pulmonary embolism, status post IVC filter I have been assigned to dictate discharge summary for this account. I was not involved in the patient's management Hemant Jose Jul 16, 2020 17:02
== END 2020-07-12 07:50 | disposition left against medical advice (07) | DRG 293 ==
LOC: EMR 13:50 → 2E 16:29 → EDBEDREQ 18:25 → 2E 23:19
DX: I11.0 Hypertensive heart disease with heart failure (principal); I50.33 Acute on chronic diastolic (congestive) heart failure; R07.89 Other chest pain; E11.9 Type 2 diabetes mellitus without complications; Z86.711 Personal history of pulmonary embolism; Z79.01 Long term (current) use of anticoagulants; Z88.6 Allergy status to analgesic agent; Z91.041 Radiographic dye allergy status; I25.10 Atherosclerotic heart disease of native coronary artery without angina pectoris; Z95.810 Presence of automatic (implantable) cardiac defibrillator; Z79.84 Long term (current) use of oral hypoglycemic drugs; E78.5 Hyperlipidemia, unspecified; Z79.82 Long term (current) use of aspirin; Z95.828 Presence of other vascular implants and grafts
CPT/HCPCS: 36415; 71045; 80053; 80307; 81003; 84484; 85025; 87086; 93005; 93306; 96374; 96375; 99285

== ENCOUNTER 2020-07-25 18:15 | Emergency (ER) | payer MEDICARE, MEDICAID ==
[~2020-07-25] VITALS: Ht 172.7 cm; Wt 88.9 kg
--- NOTE | 2020-07-25 18:50 | Emergency Room Report ---
History of Present Illness General Chief Complaint: Chest Pain Source: Patient (John Fierro MD) Present Illness HPI Disclaimer: Please note that this report is being documented using [employer] technology. This can lead to erroneous entry secondary to incorrect interpretat ion by the dictating instrument. HPI: 65-year-old male history of CAD with ventricular mural thrombosis, hypertension, BPH, diabetes, PE/DVT on Eliquis and IVC filter, COPD, status post ICD presents for chest pain. Symptoms began approximate 3 hours ago while the patient was at rest. He describes pain and pressure of the left side of the chest radiating to the left side of his neck. Denies diaphoresis. Reports recent abdominal cramping and diarrhea. Denies shortness of breath or cough. Denies fever or chills. No exacerbating or relieving factors. Has been compliant with his Eliquis. Does not take aspirin. PMH: CAD status post ICD, PE, BPH, diabetes, COPD, personality disorder PSH: Thoracotomy, pacemaker placement, embolectomy, glaucoma surgery, IVC filter Allergies: Contrast media Social Hx: Denies (John Fierro MD) Allergies: Coded Allergies: HYDROMORPHONE (Verified Allergy, Unknown, 09/02/19) Uncoded Allergies: CONTRAST DYE (Allergy, Unknown, 03/15/19) IODINE CONTRAST (Allergy, Unknown, 09/26/19) COVID-19 Screening Contact w/high risk pt: No Recent Travel to affected area: No Experienced COVID-19 symptoms?: No COVID-19 symptoms experienced: Shortness of Breath COVID-19 Testing performed GRILL CHEF: No (John Fierro MD) Nursing Documentation-PMH Hx Cardiac Problems: Yes Hx Hypertension: Yes Hx Pacemaker: Yes Hx Asthma: No Hx COPD: Yes Hx Diabetes: Yes Hx Cancer: No Hx Gastrointestinal Problems: No Hx Dialysis: No Hx Neurological Problems: No Hx Cerebrovascular Accident: No Hx Seizures: No Hx Headaches: Yes (John Fierro MD) Review of Systems All Other Systems: negative except mentioned in HPI (John Fierro MD) Physical Exam Vital Signs Date Time Temp Pulse Resp B/P (MAP) Pulse Ox O2 Delivery O2 Flow Rate FiO2 07/25/20 18:39 98.1 84 20 122/73 (89) 99 Room Air General: Awake and alert, no acute distress HEENT: NC/AT. EOMI. Cardiovascular: RRR. S1 and S2 normal. No murmur appreciated Resp: Normal work of breathing. No cough, wheezing or crackles appreciated Abdomen: Abdomen is soft, nondistended. Nontender Skin: Intact. No abrasions, laceration or rash over the exposed skin MSK: Normal tone and bulk. Moving all extremities. No obvious deformity. Neuro: Awake and alert. Mentating appropriately. (John Fierro MD) Medical Decision Making Diagnostic Impression: Primary Impression: Chest pain Qualified Codes: R07.9 - Chest pain, unspecified ER Course 65 old male presents for evaluation of chest pain. Significant cardiac history. He was recently admitted to this hospital for similar complaints but left AGAINST MEDICAL ADVICE prior to completing stress test. His EKG shows sinus rhythm with a normal axis normal intervals and no significant change from prior EKG on 07/09/2020. No infiltrate or other abnormalities on x-ray. Labs including initial troponin unremarkable. We will send a second troponin and determine ultimate disposition. Signed out to oncoming provider. Laboratory Tests Test 07/25/20 20:55 07/25/20 22:35 White Blood Count 8.8 K/UL (4.8-10.8) Red Blood Count 4.68 M/UL (4.70-6.10) L Hemoglobin 10.5 G/DL (14.2-18.0) L Hematocrit 37.4 % (42.0-52.0) L Mean Corpuscular Volume 80 FL (80-99) Mean Corpuscular Hemoglobin 22.5 PG (27.0-31.0) L Mean Corpuscular Hemoglobin Concent 28.1 G/DL (32.0-36.0) L Red Cell Distribution Width 18.5 % (11.6-14.8) H Platelet Count 216 K/UL (150-450) Mean Platelet Volume 11.6 FL (6.5-10.1) H Neutrophils (%) (Auto) 88.3 % (45.0-75.0) H Lymphocytes (%) (Auto) 4.3 % (20.0-45.0) L Monocytes (%) (Auto) 6.3 % (1.0-10.0) Eosinophils (%) (Auto) 0.4 % (0.0-3.0) Basophils (%) (Auto) 0.6 % (0.0-2.0) Sodium Level 141 MMOL/L (136-145) Potassium Level 4.0 MMOL/L (3.5-5.1) Chloride Level 108 MMOL/L (98-107) H Carbon Dioxide Level 21 MMOL/L (21-32) Anion Gap 12 mmol/L (5-15) Blood Urea Nitrogen 18 mg/dL (7-18) Creatinine 1.3 MG/DL (0.55-1.30) Estimated Glomerular Filtration Rate > 60 mL/min (>60) Glucose Level 209 MG/DL (74-106) H Calcium Level 8.5 MG/DL (8.5-10.1) Total Bilirubin 0.5 MG/DL (0.2-1.0) Aspartate Amino Transferase (AST) 21 U/L (15-37) Alanine Aminotransferase (ALT) 22 U/L (12-78) Alkaline Phosphatase 73 U/L (46-116) Troponin I 0.004 ng/mL (0.000-0.056) 0.000 ng/mL (0.000-0.056) Total Protein 6.9 G/DL (6.4-8.2) Albumin 3.3 G/DL (3.4-5.0) L Globulin 3.6 g/dL Albumin/Globulin Ratio 0.9 (1.0-2.7) L (John Fierro MD) ER Course This patient was signed out to me. He presents with chest pain. This is a chronic issue that occurred practically every day. He has been to multiple hospitals for the same complaint. He had a negative angiogram done at [facility] in December per Dr. Tavares and Dr. Garcia's dictation. It was done by Dr. Gonzalez. He also has multiple stress test done at different hospital. He had a negative cardiac work-up at [facility] last month. He has multiple echocardiogram which showed no evidence of ischemic abnormality. He is already taking Eliquis. Based on the available data, I see no evidence of coronary disease. he has 2 troponins are negative. He will be discharged home. (Raghu Villela MD) EKG Diagnostic Results Troponin ordered: Yes When was troponin ordered?: Jul 25, 2020 EKG Time: 19:10 Rate: normal Rhythm: NSR ST Segments: no acute changes Other Impression Sinus rhythm, normal axis, normal intervals, no ST segment changes.. Inferior Q waves. (John Fierro MD) Rhythm Strip Diag. Results Rhythm Strip Time: 19:10 EP Interpretation: yes Rate: 80s Rhythm: NSR, no PVC's, no ectopy (John Fierro MD) Chest X-Ray Diagnostic Results Chest X-Ray Diagnostic Results : Chest X-Ray Ordered: Yes # of Views/Limited/Complete: 1 View Indication: Chest Pain EP Interpretation: Yes Interpretation: no consolidation, no effusion, no pneumothorax, other - Sternotomy wires in place. Defibrillator wires in place. No obvious pneumonia or other abnormalities Impression: No acute disease (John Fierro MD) Last Vital Signs Date Time Temp Pulse Resp B/P (MAP) Pulse Ox O2 Delivery O2 Flow Rate FiO2 07/25/20 18:39 98.1 84 20 122/73 (89) 99 Room Air (John Fierro MD) Status: improved (Raghu Villela MD) Disposition: HOME, SELF-CARE Condition: Stable Patient Instructions: Nonspecific Chest Pain Additional Instructions: Follow-up with your doctor in 7 days. You can get a stress test done as an outpatient. Return if symptoms worsen. John Fierro MD Jul 25, 2020 18:50 Raghu Villela MD Jul 25, 2020 23:16
[2020-07-25] MEDS ORDERED: Nitroglycerin Subl 0.4mg tab SL PRN (19:00)
--- NOTE | 2020-07-25 19:23 | Diagnostic Imaging Report ---
EXAM: XR Chest, 1 View CLINICAL HISTORY: CP TECHNIQUE: Frontal view of the chest. COMPARISON: 07/08/2020 FINDINGS: Lungs: No consolidation. Pleural space: No pleural effusion. No pneumothorax. Heart: Unremarkable. No cardiomegaly. Bones/joints: Status post median sternotomy. Tubes, lines and devices: Multilead pacemaker in place. IMPRESSION: No acute findings in the chest.
[2020-07-25 21:09] LABS: HEMATOCRIT 37.4 % (42.0-52.0); HEMOGLOBIN 10.5 G/DL (14.2-18.0); MEAN CORPUSCULAR VOLUME 80 FL (80-99); PLATELET COUNT 216 K/UL (150-450); RED BLOOD COUNT 4.68 M/UL (4.70-6.10); RED CELL DISTRIBUTION WIDTH 18.5 % (11.6-14.8); WHITE BLOOD COUNT 8.8 K/UL (4.8-10.8)
[2020-07-25 21:14] LABS: EOSINOPHILS % (AUTO) 0.4 % (0.0-3.0); LYMPHOCYTES % (AUTO) 4.3 % (20.0-45.0); MONOCYTES % (AUTO) 6.3 % (1.0-10.0); NEUTROPHILS % (AUTO) 88.3 % (45.0-75.0)
[2020-07-25 21:15] LABS: BASOPHILS % (AUTO) 0.6 % (0.0-2.0)
[2020-07-25 21:27] LABS: ANION GAP 12 mmol/L (5-15); BLOOD UREA NITROGEN 18 mg/dL (7-18); CALCIUM 8.5 MG/DL (8.5-10.1); CARBON DIOXIDE 21 MMOL/L (21-32); CHLORIDE 108 MMOL/L (98-107); CREATININE 1.3 MG/DL (0.55-1.30); SODIUM 141 MMOL/L (136-145)
[2020-07-25 21:32] LABS: ALANINE AMINOTRANSFERASE 22 U/L (12-78); ALBUMIN 3.3 G/DL (3.4-5.0); ALBUMIN/GLOBULIN RATIO 0.9 (1.0-2.7); ALKALINE PHOSPHATASE 73 U/L (46-116); ASPARTATE AMINO TRANSFERASE 21 U/L (15-37); BILIRUBIN,TOTAL 0.5 MG/DL (0.2-1.0)
--- NOTE | 2020-07-25 21:55 | NUR ---
ER DISCHARGE NOTE: Patient is cleared to be discharged per ERMD, pt is aox3, disoriented to time ,on room air, with stable vital signs. pt was given dc instructions, pt was able to verbalize understanding, pt id band removed. pt is able to ambulate with steady gait. pt took all belongings.
[2020-07-25 21:59] VITALS: BP 122/73
[2020-07-25 23:11] VITALS: BP 132/76
--- NOTE | 2020-07-25 23:20 | NUR ---
Patient got gressed and walked out-did not wait for his discharge paperwork.
--- NOTE | 2020-07-25 23:24 | NUR ---
Saundra pino in ED - 07/25/20 at 2325 by SWAPNIL ED Nurse Note: Patient left without discharge paper work anf
--- NOTE | 2020-07-25 23:24 | NUR ---
ED Nurse Note: Patient left without discharge paperwork, refused to sign, and refused to allow me to remove armband, no IV was placed, patient left with all personal belongings, gait steady AOx4, and vitals stable
--- NOTE | 2020-07-25 23:24 | NUR ---
ED Nurse Note: Patient left without discharge paper work anf
--- NOTE | 2020-07-28 01:57 | Cardiology Report ---
APPROVED REPORT EKG Measurement Heart [id number] <Conclusion> Normal sinus rhythm Normal ECG
== END 2020-07-25 22:59 | disposition home or self-care (01) ==
LOC: EMR 18:58 → 2E 19:05 → UNDOADMIN 19:05 → EDBEDREQ 21:51 → EMR 22:59
DX: R07.9 Chest pain, unspecified (principal); J44.9 Chronic obstructive pulmonary disease, unspecified; E11.9 Type 2 diabetes mellitus without complications; Z95.0 Presence of cardiac pacemaker; Z88.6 Allergy status to analgesic agent; Z91.041 Radiographic dye allergy status; Z86.718 Personal history of other venous thrombosis and embolism; Z79.01 Long term (current) use of anticoagulants; I11.9 Hypertensive heart disease without heart failure; I25.10 Atherosclerotic heart disease of native coronary artery without angina pectoris
CPT/HCPCS: 36415; 71045; 80053; 84484; 85025; 93005; 99284

== ENCOUNTER 2020-08-25 10:45 | Inpatient (IN) | payer MEDICAID, MEDICARE ==
[~2020-08-25] VITALS: Ht 172.7 cm; Wt 89.8 kg
[2020-08-25] MEDS ORDERED: Aspirin Baby 81mg ORAL ONE (11:00)
--- NOTE | 2020-08-25 11:19 | Emergency Room Report ---
History of Present Illness General Chief Complaint: Chest Pain Source: Patient Present Illness HPI Patient is a 65-year-old male multiple medical history presents to the ER complaining of left-sided chest pain that started 3 hours prior to arrival. He states that it started when he was talking with people. He complains of mild shortness of breath. Patient is on Eliquis due to history of PE. He says he is compliant with his medications. He denies any fever or chills. She denies any cough. He denies any lower extremity pain or edema. Patient states that he did not take any nitroglycerin prior to arrival because he did not have any. 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 COVID-19 Screening: Negative COVID-19 COVID-19 Testing Source: MD Patient History Reviewed Nursing Documentation: PMH: Agreed; PSxH: Agreed Nursing Documentation-PMH Past Medical History: No History, Except For Hx Cardiac Problems: Yes Hx Hypertension: Yes Hx Pacemaker: Yes Hx Asthma: No Hx COPD: Yes Hx Diabetes: Yes Hx Cancer: No Hx Gastrointestinal Problems: No Hx Dialysis: No Hx Neurological Problems: No Hx Cerebrovascular Accident: No Hx Seizures: No Hx Headaches: Yes Review of Systems All Other Systems: negative except mentioned in HPI Physical Exam Vital Signs Date Time Temp Pulse Resp B/P (MAP) Pulse Ox O2 Delivery O2 Flow Rate FiO2 08/25/20 10:54 98.4 77 19 123/68 (86) 97 Room Air Sp02 EP Interpretation: reviewed, normal General Appearance: no apparent distress, alert, GCS 15, non-toxic Head: normocephalic, atraumatic Eyes: bilateral eye normal inspection, bilateral eye PERRL ENT: hearing grossly normal, normal pharynx, no angioedema, normal voice Neck: full range of motion, supple/symm/no masses Respiratory: chest non-tender, lungs clear, normal breath sounds, speaking full sentences, other - Healed midsternal surgical incision site Cardiovascular #1: regular rate, rhythm Gastrointestinal: non tender, soft Rectal: deferred Musculoskeletal: no calf tenderness, no lower extremity edema Neurologic: wig maker III-XII nml as tested, oriented x3 Psychiatric: no suicidal/homicidal ideation Skin: no rash Lymphatic: no adenopathy Medical Decision Making Diagnostic Impression: Primary Impression: Acute coronary syndrome Additional Impression: Anemia ER Course Patient presents with chest pain. Patient with known cardiac history. Patient given aspirin and sublingual nitro. Patient still complains of persistent pain. 1 dose of IV morphine has been given. Patient's vital signs are stable. Troponin negative x1. Patient is mildly anemic not currently requiring a blood transfusion. EKG demonstrates no ST elevation. Chest x-ray demonstrates no acute cardiopulmonary pathology. D-dimer is negative and patient is compliant with his Eliquis. Will admit for further treatment and evaluation. Laboratory Tests Test 08/25/20 11:35 08/25/20 11:58 White Blood Count 5.6 K/UL (4.8-10.8) Red Blood Count 4.75 M/UL (4.70-6.10) Hemoglobin 11.4 G/DL (14.2-18.0) L Hematocrit 39.0 % (42.0-52.0) L Mean Corpuscular Volume 82 FL (80-99) Mean Corpuscular Hemoglobin 24.1 PG (27.0-31.0) L Mean Corpuscular Hemoglobin Concent 29.3 G/DL (32.0-36.0) L Red Cell Distribution Width 19.1 % (11.6-14.8) H Platelet Count 185 K/UL (150-450) Mean Platelet Volume 11.5 FL (6.5-10.1) H Neutrophils (%) (Auto) 65.4 % (45.0-75.0) Lymphocytes (%) (Auto) 21.3 % (20.0-45.0) Monocytes (%) (Auto) 9.5 % (1.0-10.0) Eosinophils (%) (Auto) 2.6 % (0.0-3.0) Basophils (%) (Auto) 1.3 % (0.0-2.0) Prothrombin Time 11.0 SEC (9.30-11.50) Prothrombin Time INR 1.0 (0.9-1.1) Activated Partial Thromboplast Time 24 SEC (23-33) D-Dimer 0.37 mg/L FEU (0.00-0.49) Sodium Level 143 MMOL/L (136-145) Potassium Level 4.5 MMOL/L (3.5-5.1) Chloride Level 108 MMOL/L (98-107) H Carbon Dioxide Level 24 MMOL/L (21-32) Anion Gap 11 mmol/L (5-15) Blood Urea Nitrogen 9 mg/dL (7-18) Creatinine 1.0 MG/DL (0.55-1.30) Estimated Glomerular Filtration Rate > 60 mL/min (>60) Glucose Level 161 MG/DL (74-106) H Calcium Level 9.2 MG/DL (8.5-10.1) Magnesium Level 2.1 MG/DL (1.8-2.4) Total Bilirubin 0.4 MG/DL (0.2-1.0) Aspartate Amino Transferase (AST) 25 U/L (15-37) Alanine Aminotransferase (ALT) 22 U/L (12-78) Alkaline Phosphatase 94 U/L (46-116) Troponin I 0.002 ng/mL (0.000-0.056) Pro-B-Type Natriuretic Peptide 211 pg/mL (0-125) H Total Protein 7.3 G/DL (6.4-8.2) Albumin 3.9 G/DL (3.4-5.0) Globulin 3.4 g/dL Albumin/Globulin Ratio 1.1 (1.0-2.7) Urine Opiates Screen Negative (NEGATIVE) Urine Barbiturates Screen Negative (NEGATIVE) Phencyclidine (PCP) Screen Negative (NEGATIVE) Urine Amphetamines Screen Negative (NEGATIVE) Urine Benzodiazepines Screen Negative (NEGATIVE) Urine Cocaine Screen Negative (NEGATIVE) Urine Marijuana (THC) Screen Negative (NEGATIVE) Microbiology Date/Time Source Procedure Growth Status 08/25/20 11:35 Nasopharynx SARS-CoV-2 Antigen (Rapid)(LON) - Final Complete EKG Diagnostic Results Troponin ordered: Yes When was troponin ordered?: Aug 25, 2020 EKG Time: 11:11 EP Interpretation: Roseann May MD Rate: normal - 71 bpm Rhythm: NSR ST Segments: no acute changes ASA given to the pt in ED: No Rhythm Strip Diag. Results Rhythm Strip Time: 12:43 EP Interpretation: yes - Roseann May MD Rate: 63 bpm Rhythm: NSR, no PVC's, no ectopy Chest X-Ray Diagnostic Results Chest X-Ray Diagnostic Results : Chest X-Ray Ordered: Yes # of Views/Limited/Complete: 1 View Indication: Chest Pain EP Interpretation: Yes Interpretation: no consolidation, no effusion, no pneumothorax, no acute cardiopulmonary disease Impression: No acute disease Electronically Signed by: Roseann May MD Last Vital Signs Date Time Temp Pulse Resp B/P (MAP) Pulse Ox O2 Delivery O2 Flow Rate FiO2 08/25/20 10:54 98.4 77 19 123/68 (86) 97 Room Air Disposition: ADMITTED INPATIENT - Telemetry Condition: Critical Physician Consult: Dr. Martino at 1245pm Additional Instructions: Please note that this report is being documented using Planview technology. This can lead to erroneous entry secondary to incorrect interpretation by the dictating instrument. Roseann May M.D. Aug 25, 2020 11:19
[2020-08-25] MEDS: Nitroglycerin Subl 0.4mg tab SL PRN ×4 (11:36→17:40)
[2020-08-25 11:43] VITALS: BP 115/56
[2020-08-25] MEDS ORDERED: Morphine Sulfate 4mg/ml Inj (IV USE ONLY) IVP ONE (12:00)
[2020-08-25 12:09] LABS: ANION GAP 11 mmol/L (5-15); BLOOD UREA NITROGEN 9 mg/dL (7-18); CALCIUM 9.2 MG/DL (8.5-10.1); CARBON DIOXIDE 24 MMOL/L (21-32); CHLORIDE 108 MMOL/L (98-107); POTASSIUM 4.5 MMOL/L (3.5-5.1); SODIUM 143 MMOL/L (136-145)
[2020-08-25 12:15] LABS: BASOPHILS % (AUTO) 1.3 % (0.0-2.0); EOSINOPHILS % (AUTO) 2.6 % (0.0-3.0); HEMOGLOBIN 11.4 G/DL (14.2-18.0); LYMPHOCYTES % (AUTO) 21.3 % (20.0-45.0); MEAN CORPUSCULAR VOLUME 82 FL (80-99); MONOCYTES % (AUTO) 9.5 % (1.0-10.0); NEUTROPHILS % (AUTO) 65.4 % (45.0-75.0); PLATELET COUNT 185 K/UL (150-450); RED BLOOD COUNT 4.75 M/UL (4.70-6.10); RED CELL DISTRIBUTION WIDTH 19.1 % (11.6-14.8); WHITE BLOOD COUNT 5.6 K/UL (4.8-10.8)
--- NOTE | 2020-08-25 12:19 | Diagnostic Imaging Report ---
Indication: Chest pain Technique: XRAY Chest 1v Comparison: 07/25/2020 Findings: Stable cardiomegaly. Again is evidence of prior surgery with median sternotomy. Left-sided PICC mass or is unchanged in position with lead tips projecting over the right atrium and ventricle. Unchanged elevation of the left hemidiaphragm. No definite focal airspace consolidation, pleural effusion or pneumothorax. No definite radiographic evidence to suggest pulmonary edema. No acute osseous abnormality appreciated. IVC filter partially visualized. IMPRESSION: No radiographic evidence of acute cardiopulmonary disease. Chronic findings as above.
[2020-08-25 12:20] LABS: ALANINE AMINOTRANSFERASE 22 U/L (12-78); ALBUMIN 3.9 G/DL (3.4-5.0); ALBUMIN/GLOBULIN RATIO 1.1 (1.0-2.7); ALKALINE PHOSPHATASE 94 U/L (46-116); ASPARTATE AMINO TRANSFERASE 25 U/L (15-37); BILIRUBIN,TOTAL 0.4 MG/DL (0.2-1.0)
[2020-08-25 16:00] VITALS: BP 127/62
[2020-08-25] MEDS ORDERED: Acetaminophen 500mg (ES) tab ORAL SCH (16:45)
[2020-08-25] MEDS: Eliquis 2.5mg tablet ORAL SCH (17:13)
[2020-08-25] MEDS ORDERED: Acetaminophen 500mg (ES) tab ORAL PRN (17:15)
[2020-08-25] MEDS: Cosopt Opth Soln 10 mL Btl BOTH EYES SCH (17:16)
[2020-08-25] MEDS: Brimonidine 0.2% Opth Sol BOTH EYES SCH (17:16)
--- NOTE | 2020-08-25 18:44 | History and Physical Report ---
DATE OF ADMISSION: 08/25/2020 REASON FOR ADMISSION: Chest pain, possible acute coronary syndrome. HISTORY OF PRESENT ILLNESS: This is a 65-year-old male, multiple medical problems, presents with chest pain for approximately 3 hours. Patient notes that it started at rest. Complained of some shortness of breath. Patient has been on Eliquis due to pulmonary emboli. Patient has been compliant with medication. Patient denies any cough or sputum. Patient is seen in the emergency room and did have workup. A chest x-ray was done, which was negative for any significant infiltrates. Chemistries done as well and coagulation factors as well with a negative D-dimer. Patient now admitted for possible acute coronary syndrome. PAST MEDICAL HISTORY: Notable for COPD, diabetes, chronic headaches, pulmonary emboli, history of pacemaker. MEDICATIONS: Reviewed. ALLERGIES: Reviewed. SOCIAL HISTORY: Reviewed. PHYSICAL EXAMINATION: GENERAL: A well-developed male. Overall patient is comfortable at present. VITAL SIGNS: Reviewed, otherwise stable. Blood pressure 127/63, pulse 68, respirations 20, patient is saturating 98% on room air. HEENT: Negative. NECK: Supple. No adenopathy. LUNGS: Fairly clear and symmetric. CARDIAC: Normal S1, S2. Regular rate and rhythm. ABDOMEN: Soft, nontender. EXTREMITIES: No edema. NEUROLOGIC: Grossly nonfocal. LABORATORY DATA: All reviewed, appeared to be fairly normal. Initial troponin is negative. IMPRESSION: 1. History of pulmonary emboli, on anticoagulation. 2. Chest pain, possible acute coronary syndrome. Doubt recurrence of PE with normal D-dimer. 3. BPH. 4. Hypertension. 5. Hypercholesterolemia. RECOMMENDATIONS: Supportive care. Serial troponins. Follow up EKG. Cardiac diet. Resume medication. Await Cardiology evaluation to recommend further and discharge when patient is clinically stable. Gorge Jacobs M.D. DR: MARK JOB#: [id number] CC:
[2020-08-25 20:00] VITALS: BP 121/71
[2020-08-25] MEDS: Tamsulosin 0.4mg cap ORAL SCH (20:25)
[2020-08-25] MEDS: Atorvastatin 20mg tab ORAL SCH (20:26)
[2020-08-26] VITALS: BP 127/72
--- NOTE | 2020-08-26 07:54 | General Progress Note ---
Subjective Allergies: Coded Allergies: HYDROMORPHONE (Verified Allergy, Unknown, 09/02/19) Uncoded Allergies: CONTRAST DYE (Allergy, Unknown, 03/15/19) IODINE CONTRAST (Allergy, Unknown, 09/26/19) Subjective care noted and reviewed stable overnight Objective Last 24 Hour Vital Signs Date Time Temp Pulse Resp B/P (MAP) Pulse Ox O2 Delivery O2 Flow Rate FiO2 08/26/20 04:00 69 08/26/20 00:00 97.7 73 18 127/72 (90) 99 08/26/20 00:00 73 08/25/20 21:00 Room Air 08/25/20 20:00 64 08/25/20 20:00 97.3 62 18 121/71 (88) 98 08/25/20 17:40 125/72 08/25/20 17:31 119/72 08/25/20 17:13 127/62 08/25/20 16:00 77 08/25/20 16:00 98.1 68 20 127/62 (83) 98 08/25/20 14:36 Room Air 08/25/20 13:33 Room Air 08/25/20 11:43 71 12 Room Air 08/25/20 11:43 98.6 71 12 115/56 99 Room Air 08/25/20 10:54 98.4 77 19 123/68 (86) 97 Room Air Intake and Output 08/25/20 08/26/20 19:00 07:00 Intake Total 350 ml 120 ml Balance 350 ml 120 ml Intake Oral 350 ml 120 ml # Voids 2 # Bowel Movements 1 Laboratory Tests 08/25/20 11:35: White Blood Count 5.6, Red Blood Count 4.75, Hemoglobin 11.4L, Hematocrit 39.0L, Mean Corpuscular Volume 82, Mean Corpuscular Hemoglobin 24.1L, Mean Corpuscular Hemoglobin Concent 29.3L, Red Cell Distribution Width 19.1H, Platelet Count 185, Mean Platelet Volume 11.5H, Neutrophils (%) (Auto) 65.4, Lymphocytes (%) (Auto) 21.3, Monocytes (%) (Auto) 9.5, Eosinophils (%) (Auto) 2.6, Basophils (%) (Auto) 1.3, Prothrombin Time 11.0, Prothromb Time International Ratio 1.0, Activated Partial Thromboplast Time 24, D-Dimer 0.37, Sodium Level 143, Potassium Level 4.5, Chloride Level 108H, Carbon Dioxide Level 24, Anion Gap 11, Blood Urea Nitrogen 9, Creatinine 1.0, Estimat Glomerular Filtration Rate > 60, Glucose Level 161H, Calcium Level 9.2, Magnesium Level 2.1, Total Bilirubin 0.4, Aspartate Amino Transf (AST/SGOT) 25, Alanine Aminotransferase (ALT/SGPT) 22, Alkaline Phosphatase 94, Troponin I 0.002, Pro-B-Type Natriuretic Peptide 211H, Total Protein 7.3, Albumin 3.9, Globulin 3.4, Albumin/Globulin Ratio 1.1 08/25/20 11:58: Urine Opiates Screen Negative, Urine Barbiturates Screen Negative, Phencyclidine (PCP) Screen Negative, Urine Amphetamines Screen Negative, Urine Benzodiazepines Screen Negative, Urine Cocaine Screen Negative, Urine Marijuana (THC) Screen Negative Height (Feet): 5 Height (Inches): 8.00 Weight (Pounds): 198 Objective PHYSICAL EXAMINATION: GENERAL: A well-developed male. Overall patient is comfortable at present. HEENT: Negative. NECK: Supple. No adenopathy. LUNGS: Fairly clear and symmetric. CARDIAC: Normal S1, S2. Regular rate and rhythm. ABDOMEN: Soft, nontender. EXTREMITIES: No edema. NEUROLOGIC: Grossly nonfocal. Assessment/Plan Assessment/Plan: IMPRESSION: 1. History of pulmonary emboli, on anticoagulation. 2. Chest pain, possible acute coronary syndrome. Doubt recurrence of PE with normal D-dimer. 3. BPH. 4. Hypertension. 5. Hypercholesterolemia. PLAN cards to see and clear tele for now monitor for change aspirin impression, plan, and exam edited and reviewed in detail care discussed with Gorge Parker MD Aug 26, 2020 07:54
[2020-08-26 08:00] VITALS: BP 125/72
[2020-08-26] MEDS: Aspirin Baby 81mg ORAL SCH (09:12)
[2020-08-26] MEDS: Eliquis 2.5mg tablet ORAL SCH ×2 (09:13→18:41)
[2020-08-26] MEDS ORDERED: Morphine Sulfate 2mg/ml Inj(IV/IM USE ONLY) IVP PRN (09:15)
[2020-08-26] MEDS: Morphine Sulfate 2mg/ml Inj(IV/IM USE ONLY) IVP PRN ×4 (09:15→22:52)
[2020-08-26] MEDS: Brimonidine 0.2% Opth Sol BOTH EYES SCH ×2 (09:21→18:44)
[2020-08-26] MEDS: Cosopt Opth Soln 10 mL Btl BOTH EYES SCH ×2 (09:21→18:44)
--- NOTE | 2020-08-26 10:22 | Cardiac Electrophysiology PN ---
Subjective Subjective [id number] Objective Last 24 Hour Vital Signs Date Time Temp Pulse Resp B/P (MAP) Pulse Ox O2 Delivery O2 Flow Rate FiO2 08/26/20 08:00 97.7 60 18 125/72 (89) 98 08/26/20 04:00 69 08/26/20 00:00 97.7 73 18 127/72 (90) 99 08/26/20 00:00 73 08/25/20 21:00 Room Air 08/25/20 20:00 64 08/25/20 20:00 97.3 62 18 121/71 (88) 98 08/25/20 17:40 125/72 08/25/20 17:31 119/72 08/25/20 17:13 127/62 08/25/20 16:00 77 08/25/20 16:00 98.1 68 20 127/62 (83) 98 08/25/20 14:36 Room Air 08/25/20 13:33 Room Air 08/25/20 11:43 71 12 Room Air 08/25/20 11:43 98.6 71 12 115/56 99 Room Air 08/25/20 10:54 98.4 77 19 123/68 (86) 97 Room Air Intake and Output 08/25/20 08/26/20 19:00 07:00 Intake Total 350 ml 120 ml Balance 350 ml 120 ml Intake Oral 350 ml 120 ml # Voids 2 # Bowel Movements 1 Laboratory Tests Test 08/25/20 11:35 08/25/20 11:58 White Blood Count 5.6 K/UL (4.8-10.8) Red Blood Count 4.75 M/UL (4.70-6.10) Hemoglobin 11.4 G/DL (14.2-18.0) L Hematocrit 39.0 % (42.0-52.0) L Mean Corpuscular Volume 82 FL (80-99) Mean Corpuscular Hemoglobin 24.1 PG (27.0-31.0) L Mean Corpuscular Hemoglobin Concent 29.3 G/DL (32.0-36.0) L Red Cell Distribution Width 19.1 % (11.6-14.8) H Platelet Count 185 K/UL (150-450) Mean Platelet Volume 11.5 FL (6.5-10.1) H Neutrophils (%) (Auto) 65.4 % (45.0-75.0) Lymphocytes (%) (Auto) 21.3 % (20.0-45.0) Monocytes (%) (Auto) 9.5 % (1.0-10.0) Eosinophils (%) (Auto) 2.6 % (0.0-3.0) Basophils (%) (Auto) 1.3 % (0.0-2.0) Prothrombin Time 11.0 SEC (9.30-11.50) Prothromb Time International Ratio 1.0 (0.9-1.1) Activated Partial Thromboplast Time 24 SEC (23-33) D-Dimer 0.37 mg/L FEU (0.00-0.49) Sodium Level 143 MMOL/L (136-145) Potassium Level 4.5 MMOL/L (3.5-5.1) Chloride Level 108 MMOL/L (98-107) H Carbon Dioxide Level 24 MMOL/L (21-32) Anion Gap 11 mmol/L (5-15) Blood Urea Nitrogen 9 mg/dL (7-18) Creatinine 1.0 MG/DL (0.55-1.30) Estimat Glomerular Filtration Rate > 60 mL/min (>60) Glucose Level 161 MG/DL (74-106) H Calcium Level 9.2 MG/DL (8.5-10.1) Magnesium Level 2.1 MG/DL (1.8-2.4) Total Bilirubin 0.4 MG/DL (0.2-1.0) Aspartate Amino Transf (AST/SGOT) 25 U/L (15-37) Alanine Aminotransferase (ALT/SGPT) 22 U/L (12-78) Alkaline Phosphatase 94 U/L (46-116) Troponin I 0.002 ng/mL (0.000-0.056) Pro-B-Type Natriuretic Peptide 211 pg/mL (0-125) H Total Protein 7.3 G/DL (6.4-8.2) Albumin 3.9 G/DL (3.4-5.0) Globulin 3.4 g/dL Albumin/Globulin Ratio 1.1 (1.0-2.7) Urine Opiates Screen Negative (NEGATIVE) Urine Barbiturates Screen Negative (NEGATIVE) Phencyclidine (PCP) Screen Negative (NEGATIVE) Urine Amphetamines Screen Negative (NEGATIVE) Urine Benzodiazepines Screen Negative (NEGATIVE) Urine Cocaine Screen Negative (NEGATIVE) Urine Marijuana (THC) Screen Negative (NEGATIVE) Microbiology Date/Time Source Procedure Growth Status 08/25/20 11:35 Nasopharynx SARS-CoV-2 Antigen (Rapid)(LON) - Final Complete Gato Zayas MD Aug 26, 2020 10:22
[2020-08-26] MEDS ORDERED: Lexiscan 0.4mg/5ml syringe IV PRN (10:32)
[2020-08-26 12:00] VITALS: BP 146/74
--- NOTE | 2020-08-26 12:59 | Consultation ---
DATE OF CONSULTATION: 08/26/2020 CARDIOLOGY CONSULTATION CONSULTING PHYSICIAN: Gato Zayas MD REFERRING PHYSICIAN: Gorge Jacobs MD. REASON FOR CONSULTATION: Chest pain, evaluation of the pacemaker. HISTORY OF PRESENT ILLNESS: The patient is a 65-year-old gentleman with history of hypertension, diabetes, and history of pulmonary embolism, status post open embolectomy many years ago, who has been chronically on Eliquis as well as history of [employer] [facility] pacemaker implantation at outside facility, presented to the emergency room with chest pain. The patient denies any cough or fever or chills or nausea, vomiting, or diaphoresis. The patient has been noncompliant with the stress test in the past and has had numerous hospitalization at multiple different hospitals and has been seen by multiple different cardiologists. REVIEW OF SYSTEMS: Negative other than what is mentioned in the history of present illness. PAST MEDICAL HISTORY: As mentioned above. FAMILY HISTORY: Noncontributory. SOCIAL HISTORY: He lives at home. Does not smoke or drink alcohol. MEDICATIONS: Per reconciliation. PHYSICAL EXAMINATION: VITAL SIGNS: Blood pressure of 125/62, pulse 60, respirations 18, temperature 97.7. HEAD AND NECK: Showed no JVD. LUNGS: Clear. CARDIOVASCULAR: Regular S1 and S2 with no gallop or murmur. Pacemaker in the left subclavian. ABDOMEN: Soft. EXTREMITIES: No pitting edema. LABORATORY AND DIAGNOSTIC DATA: Labs show white count of 5.6, hemoglobin 11.4, hematocrit 39, and platelet count is 185. Sodium is 142, potassium 4.5, BUN of 9, creatinine of 1, and glucose of 161. Troponin negative. Urine toxicology screen is negative. ASSESSMENT AND PLAN: 1. Chest pain. We will completely rule out [place] protocol and scheduled the patient for echocardiogram and nuclear stress test in the morning. 2. Status post [facility] [facility] pacemaker. The pacemaker was interrogated for further evaluation. 3. History of pulmonary embolism, on Eliquis. It is of note the patient's last nuclear stress test was in December 2019 that was study only and the patient refused the stress portion at that time. 4. Glaucoma. Thank you very much for allowing me to participate in the care of this patient. Please do not hesitate to contact me for any questions regarding my evaluation. Gato Zayas M.D. DR: NATALIE JOB#: [id number] CC:
[2020-08-26 16:00] VITALS: BP 140/68
[2020-08-26] MEDS ORDERED: IRON325 M1 PO (16:34)
[2020-08-26] MEDS ORDERED: ZINC30 MG ORAL (16:34)
[2020-08-26] MEDS ORDERED: VITAMIN C500 M1 ORAL (16:34)
[2020-08-26] MEDS ORDERED: FOLIC ACID1 MG ORAL (16:34)
[2020-08-26] MEDS ORDERED: VITAMIN B-121000 MCG PO (16:34)
[2020-08-26] MEDS ORDERED: VITAMIN D325 MC1 PO (16:34)
[2020-08-26 20:37] VITALS: BP 123/62
[2020-08-26] MEDS: Tamsulosin 0.4mg cap ORAL SCH (20:53)
[2020-08-26] MEDS: Atorvastatin 20mg tab ORAL SCH (20:53)
[2020-08-26] MEDS ORDERED: Latanoprost 0.005% Opth 2.5ml Soln BOTH EYES SCH (21:00)
[2020-08-27 00:35] VITALS: BP 131/66
[2020-08-27 04:00] VITALS: BP 134/73
[2020-08-27 08:00] VITALS: BP 121/68
--- NOTE | 2020-08-27 08:31 | General Progress Note ---
Subjective Allergies: Coded Allergies: HYDROMORPHONE (Verified Allergy, Unknown, 09/02/19) Uncoded Allergies: CONTRAST DYE (Allergy, Unknown, 03/15/19) IODINE CONTRAST (Allergy, Unknown, 09/26/19) Subjective care noted and reviewed stable overnight cards noted Objective Last 24 Hour Vital Signs Date Time Temp Pulse Resp B/P (MAP) Pulse Ox O2 Delivery O2 Flow Rate FiO2 08/27/20 04:00 98.1 66 20 134/73 (93) 96 08/27/20 04:00 65 08/27/20 00:35 98.6 64 18 131/66 (87) 99 08/27/20 00:00 60 08/26/20 21:00 Room Air 08/26/20 20:39 60 08/26/20 20:37 98.8 61 20 123/62 (82) 97 08/26/20 16:00 62 08/26/20 16:00 97.7 67 18 140/68 (92) 99 08/26/20 12:00 64 08/26/20 12:00 97.7 63 20 146/74 (98) 100 08/26/20 09:00 Room Air Intake and Output 08/26/20 08/27/20 19:00 07:00 Intake Total 480 ml 240 ml Output Total 500 ml Balance -20 ml 240 ml Intake Oral 480 ml 240 ml Output Urine Total 500 ml # Voids 3 3 Laboratory Tests 08/26/20 10:55: Troponin I 0.007 08/26/20 18:30: Troponin I 0.005 08/27/20 03:00: Troponin I 0.009 Height (Feet): 5 Height (Inches): 8.00 Weight (Pounds): 198 Objective PHYSICAL EXAMINATION: GENERAL: A well-developed male. Overall patient is comfortable at present. HEENT: Negative. NECK: Supple. No adenopathy. LUNGS: Fairly clear and symmetric. CARDIAC: Normal S1, S2. Regular rate and rhythm. ABDOMEN: Soft, nontender. EXTREMITIES: No edema. NEUROLOGIC: Grossly nonfocal. Assessment/Plan Assessment/Plan: IMPRESSION: 1. History of pulmonary emboli, on anticoagulation. 2. Chest pain, possible acute coronary syndrome. Doubt recurrence of PE with normal D-dimer. 3. BPH. 4. Hypertension. 5. Hypercholesterolemia. PLAN cards clearance pending tele for now monitor for change aspirin otherwise appears stable impression, plan, and exam edited and reviewed in detail care discussed with Gorge Parker MD Aug 27, 2020 08:31
[2020-08-27] MEDS: Aspirin Baby 81mg ORAL SCH (08:33)
[2020-08-27] MEDS: Eliquis 2.5mg tablet ORAL SCH ×2 (08:36→18:00)
[2020-08-27] MEDS: Cosopt Opth Soln 10 mL Btl BOTH EYES SCH ×2 (08:38→18:00)
[2020-08-27] MEDS: Brimonidine 0.2% Opth Sol BOTH EYES SCH ×2 (08:38→18:00)
[2020-08-27] MEDS: Morphine Sulfate 2mg/ml Inj(IV/IM USE ONLY) IVP PRN ×2 (10:00→14:53)
[2020-08-27] MEDS: Nitroglycerin Subl 0.4mg tab SL PRN (10:50)
[2020-08-27 12:00] VITALS: BP 124/69
--- NOTE | 2020-08-27 12:38 | Cardiology Report ---
APPROVED REPORT EKG Measurement Heart [id number] <Conclusion> Normal sinus rhythm Normal ECG
[2020-08-27 16:00] VITALS: BP 134/71
--- NOTE | 2020-08-27 16:43 | Cardiac Electrophysiology PN ---
Assessment/Plan Assessment/Plan 1. Chest pain. Ruled out for [place] Echocardiogram Nl EF and refused nuclear stress test 2. Status post [facility] [facility] pacemaker. The pacemaker was interrogated and showed Nl Fx 3. History of pulmonary embolism, on Eliquis. 4. Glaucoma. Subjective Subjective Pacer interrogation showed Nl Fx. Refused stress test again Objective Last 24 Hour Vital Signs Date Time Temp Pulse Resp B/P (MAP) Pulse Ox O2 Delivery O2 Flow Rate FiO2 08/27/20 16:00 97.5 60 18 134/71 (92) 99 08/27/20 16:00 60 08/27/20 12:00 60 08/27/20 12:00 97.2 60 16 124/69 (87) 99 08/27/20 10:50 121/68 08/27/20 09:00 Room Air 08/27/20 08:00 97.9 62 20 121/68 (85) 98 08/27/20 08:00 63 08/27/20 04:00 98.1 66 20 134/73 (93) 96 08/27/20 04:00 65 08/27/20 00:35 98.6 64 18 131/66 (87) 99 08/27/20 00:00 60 08/26/20 21:00 Room Air 08/26/20 20:39 60 08/26/20 20:37 98.8 61 20 123/62 (82) 97 Intake and Output 08/26/20 08/27/20 19:00 07:00 Intake Total 480 ml 240 ml Output Total 500 ml Balance -20 ml 240 ml Intake Oral 480 ml 240 ml Output Urine Total 500 ml # Voids 3 3 Laboratory Tests Test 08/26/20 18:30 08/27/20 03:00 Troponin I 0.005 ng/mL (0.000-0.056) 0.009 ng/mL (0.000-0.056) Microbiology Date/Time Source Procedure Growth Status 08/25/20 11:35 Nasopharynx SARS-CoV-2 Antigen (Rapid)(LON) - Final Complete Objective HEAD AND NECK: Showed no JVD. LUNGS: Clear. CARDIOVASCULAR: Regular S1 and S2 with no gallop or murmur. Pacemaker in the left subclavian. ABDOMEN: Soft. EXTREMITIES: No pitting edema. Gato Zayas MD Aug 27, 2020 16:43
--- NOTE | 2020-08-30 11:14 | Discharge Summary ---
Discharge Summary Discharge Summary _ Date of admission: 08/25/2020 Date of discharge: 08/27/[address] Jacobs History of Present Illness and Brief Hospital Course Mr. Harden is a 65-year-old male with past medical history of hypertension, pacemaker implant, COPD, and diabetes, who presented to ER for evaluation of left-sided chest pain x3 hours. Patient was on Eliquis due to history of PE. Patient was given aspirin and sublingual nitro as well as 1 dose of IV morphine. Troponin was negative. Patient was mildly anemic but was not requiring a blood transfusion. EKG demonstrated no ST elevation. Chest x-ray showed no acute cardiopulmonary pathology. D-dimer was negative. Patient was admitted to the hospital for further treatment and evaluation. Echocardiogram showed normal ejection fraction. Pacemaker was interrogated and showed normal function. Patient refused nuclear stress test. Patient requested to be discharged. Patient was medically stable for discharge and was discharged home on 08/27/2020. Consultants: Cardiology Dr. Zayas Discharge Condition Improved and stable Discharge Activity As tolerated Discharge Diet Low-fat, low-sodium cardiac diet Final diagnoses Chest pain s/p pacemaker History of pulmonary embolism, on Eliquis History of glaucoma History of BPH Hypertension Hypercholesterolemia I have been assigned to dictate discharge summary for this account. I was not involved in the patient's management Hemant Jose Aug 30, 2020 11:14
--- NOTE | 2020-09-01 22:32 | Coder Physician Query ---
Clarification is required for compliance, coding accuracy, and to reflect severity of illness for this patient Dear Dr. 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 Harden is a 65-year-old male with past medical history of hypertension, pacemaker implant, COPD, and diabetes, who presented to ER for evaluation of left-sided chest pain x3 hours. Patient was on Eliquis due to history of PE. Patient was given aspirin and sublingual nitro as well as 1 dose of IV morphine. Troponin was negative. Patient was mildly anemic but was not requiring a blood transfusion. EKG demonstrated no ST elevation. Chest x-ray showed no acute cardiopulmonary pathology. D-dimer was negative. Patient was admitted to the hospital for further treatment and evaluation. Echocardiogram showed normal ejection fraction. Pacemaker was interrogated and showed normal function. Patient refused nuclear stress test. Patient requested to be discharged. Patient was medically stable for discharge and was discharged home on 08/27/2020. Final diagnoses Chest pain s/p pacemaker Please document the suspected etiology of Chest Pain: [] Acute Coronary Syndrome [] Pericarditis [] Anxiety [] Cancer [] Pneumonia [] Costochondritis [] Pneumothorax [] GERD/Esophagitis [] Pulmonary embolism [] Other: [] Unable to determine Physician signature Date Please also document in your Progress Notes and/or Discharge Summary and indicate if the condition was present on admission. MINE
== END 2020-08-27 18:50 | disposition home or self-care (01) | DRG 203 ==
LOC: EMR 11:20 → 2E 12:23 → EDBEDREQ 13:20 → 2E 13:55
DX: R07.9 Chest pain, unspecified (principal); N40.0 Benign prostatic hyperplasia without lower urinary tract symptoms; I10 Essential (primary) hypertension; Z88.6 Allergy status to analgesic agent; Z91.041 Radiographic dye allergy status; Z86.711 Personal history of pulmonary embolism; Z79.01 Long term (current) use of anticoagulants; H40.9 Unspecified glaucoma; Z95.0 Presence of cardiac pacemaker; J44.9 Chronic obstructive pulmonary disease, unspecified; E11.9 Type 2 diabetes mellitus without complications; E78.00 Pure hypercholesterolemia, unspecified; D64.9 Anemia, unspecified
CPT/HCPCS: 36415; 71045; 80053; 80307; 83735; 83880; 84484; 85025; 85379; 85610; 85730; 93005; 93306; 96374; 99285